=== PATIENT | female | born 1940 | race Caucasian/White ===

== ENCOUNTER 2016-10-23 09:14 | Inpatient (IN) | payer MEDICARE ==
[2016-10-23 10:54] LABS: Hematocrit 25 % (35-47); Hemoglobin 8.1 g/dl (12.0-16.0); Mean Corpuscular HGB Conc 33 g/dl (31-36); Mean Corpuscular Hemoglobin 32 pg (27-31); Mean Corpuscular Volume 97 fL (80-97); Mean Platelet Volume 9 um3 (7.4-10.4); Red Blood Count 2.54 10^6/ul (4.0-5.4); Red Cell Distribution Width 15 % (10.5-15); White Blood Count 9.8 10^3/ul (3.5-10.8)
--- NOTE | 2016-10-23 10:57 | RAD ---
HISTORY: Syncope COMPARISONS: April 29, 2018 VIEWS: 2: Frontal dual-energy and lateral views of the chest. FINDINGS: CARDIOMEDIASTINAL SILHOUETTE: The cardiomediastinal silhouette is normal. LAKEISHA: The lakeisha are normal. PLEURA: The costophrenic angles are sharp. No pleural abnormalities are noted. LUNG PARENCHYMA: There is hyperinflation with flattening of the diaphragm and expansion of the AP diameter of the chest. ABDOMEN: The upper abdomen is clear. There is no subphrenic gas. BONES AND SOFT TISSUES: No bone or soft tissue abnormalities are noted. OTHER: A left-sided pacemaker is noted IMPRESSION: HYPERINFLATION NO ACTIVE CARDIOPULMONARY DISEASE.
[2016-10-23 11:06] LABS: ALT < 3 U/L (7-52); AST 10 U/L (13-39); Albumin 4.2 g/dL (3.2-5.2); Alkaline Phosphatase 52 U/L (34-104); Anion Gap 10 mmol/L (2-11); BUN/Creatinine Ratio 28.6 (8-20); Blood Urea Nitrogen 62 mg/dL (6-24); CO2 Carbon Dioxide 22 mmol/L (22-32); Calcium 9.5 mg/dL (8.6-10.3); Chloride 104 mmol/L (101-111); EGFR African American 28.2 (>60); EGFR Non-African American 21.9 (>60); Globulin 3.1 g/dL (2-4); Glucose 108 mg/dL (70-100); Magnesium 2.4 mg/dL (1.9-2.7); Potassium 4.1 mmol/L (3.5-5.0); Sodium 136 mmol/L (133-145); Total Protein 7.3 g/dL (6.4-8.9)
[2016-10-23 11:08] LABS: Troponin I 0.01 ng/mL (<0.04)
[2016-10-23 11:21] LABS: TSH (Thyroid Stimulating Horm) 0.35 mcIU/mL (0.34-5.60)
[2016-10-23] MEDS ORDERED: NS 0.9% 1000 ML* 1,000 ML IV SCH (11:30)
[2016-10-23 11:41] LABS: Urine Bacteria Absent (Absent); Urine Bilirubin Negative (Negative); Urine Glucose Negative (Negative); Urine Nitrite Negative (Negative)
--- NOTE | 2016-10-23 14:19 | ECHO ---
Patient: HUMBERTO CAMERON [facility] Rec#: [id number] : 1940 Date: 10/23/2016 Age: 76y Height: 149.9 cm / 59.0 in Weight: 55.8 kg / 123.0 lbs Sex: F BSA: 1.5 Admit Date#: 10/23/2016 Type: Inpatient Referring: Dagoberto Longoria MD Reading: Mirta Lee MD Crosscutter Rolled Glass: Jailyn Aburto RN RDCS CC: [facility]ERS[facility] Indication: Syncope BP: 117/86 HR: 60 Rhythm: NSR Findings History: CAD, MS, HTN, A. fib, pacemaker, TIAs, Parkinson's disease, recent syncopal episodes with falls Technical Comments: The study quality is fair. Completed at 1330. Left Ventricle: The left ventricular chamber size is normal. Mild concentric left ventricular hypertrophy is observed. Global left ventricular wall motion and contractility are within normal limits. There is normal left ventricular systolic function. The estimated ejection fraction is 55-60%. Abnormal left ventricular diastolic filling is observed, consistent with impaired relaxation. Left Atrium: The left atrium is moderate to severely dilated. Right Ventricle: The right ventricular cavity size is normal. The right ventricular global systolic function is normal. A pacemaker wire is visualized in the right ventricle. Right Atrium: The right atrial cavity size is normal. A pacemaker wire is visualized in the right atrium. Aortic Valve: The aortic valve is trileaflet. The aortic valve leaflets are mildly thickened. There is no evidence of aortic regurgitation. There is no evidence of aortic stenosis. Mitral Valve: There is mitral annular calcification. The mitral valve leaflets are mildly thickened. There is mild to moderate mitral regurgitation. most views appears mild. There is no evidence of mitral stenosis. Tricuspid Valve: The tricuspid valve leaflets are normal. There is trace to mild tricuspid regurgitation. Unable to estimate the right ventricular systolic pressure. Pulmonic Valve: The pulmonic valve appears normal. There is trace to mild pulmonic regurgitation. There is no pulmonic stenosis. Pericardium: There is no significant pericardial effusion. Aorta: There is no dilatation of the ascending aorta. There is no dilatation of the aortic arch. The aortic root is normal in size. Pulmonary Artery: The main pulmonary artery appears normal. Venous: The inferior vena cava appears normal in size. There is a greater than 50% respiratory change in the inferior vena cava dimension. Conclusions Mild concentric left ventricular hypertrophy is observed. Normal wall motion and contractility, LVEF 55-60%. Mild diastolic dysfunction, impaired relaxation pattern. The right ventricular global systolic function is normal. The left atrium is moderately to severely dilated. The mitral valve leaflets are mildly thickened with mild to moderate MR (closer to mild). There is trace to mild tricuspid regurgitation. Compared with prior echo of February 07, 2012, EF is stable, MR is new, left atrial enlargement is new. Measurements Name Value Normal Range RVIDd (AP) 2D 2.7 cm (0.9 - 2.6) RVDdMajor (2D) 3 cm (2.2 - 4.4) RAd ISD 4CH 4.6 cm (3.4 - 4.9) RA (A4C)W 3.1 cm (2.9 - 4.6) IVSd (2D) 1.2 cm (0.6 - 1) LVPWd (2D) 1.2 cm (0.6 - 1) LVIDd (2D) 4.1 cm (3.6 - 5.4) LVIDs (2D) 2.8 cm - LV FS (2D) 31 % (25 - 45) Aortic Annulus 2.2 cm (1.4 - 2.6) Ao root diameter (2D) 3 cm (2.1 - 3.5) Ascending Ao 3.4 cm (2.1 - 3.4) Aortic arch 2.1 cm (1.8 - 3.4) LA dimension (AP) 2D 3.7 cm (2.3 - 3.8) LAd ISD 4CH 5.4 cm (2.9 - 5.3) LA ISD 4CH W 4.6 cm (2.5 - 4.5) Name Value Normal Range LA ESV SP 4CH (A/L) 84 ml - LA ESV SP 2CH (A/L) 29 ml - LA ESV BP (A/L) 63 ml - LA ESV BP (A/L) index 42 ml/m2 - LA ESV SP 4CH (MOD) 80 ml - LA ESV SP 2CH (MOD) 25 ml - Name Value Normal Range MV E-wave Vmax 1 m/sec - MV deceleration time 188 msec - MV A-wave Vmax 1.3 m/sec - MV E:A ratio 0.77 ratio - LV septal e' Vmax 0.07 m/sec - LV lateral e' Vmax 0.09 m/sec - LV E:e' septal ratio 14.3 ratio - LV E:e' lateral ratio 11.1 ratio - Name Value Normal Range AV Vmax 1.5 m/sec - AV VTI 36.7 cm - AV peak gradient 9.3 mmHg - AV mean gradient 6 mmHg - LVOT Vmax 1.4 m/sec - LVOT VTI 31.1 cm - GEOVANNA Vmax 0.53 m/sec - Name Value Normal Range IVC diameter 1.8 cm - Name Value Normal Range PV Vmax 0.87 m/sec -
[2016-10-23] MEDS: Pantoprazole IV* 40 MG IV SCH ×2 (14:39→21:34)
[2016-10-23] MEDS: Carbidopa/Levodop 25/100 MG TAB(*) PO SCH ×2 (15:37→21:33)
[2016-10-23] MEDS: traMADol TAB* 50 MG PO PRN ×2 (16:21→22:56)
[2016-10-23 16:24] LABS: Comments Flag Yes; Hematocrit 18 % (35-47)
[2016-10-23 16:27] LABS: Hemoglobin 6.1 g/dl (12.0-16.0)
[2016-10-23] MEDS ORDERED: Phytonadione INJ* 1 MG/0.5 ML ML IM ONE (16:55)
[2016-10-23] MEDS ORDERED: Phytonadione INJ (Adult)* 10 MG/ML 1 ML AMP SUBCUT ONE (17:09)
[2016-10-23] MEDS: NS 0.9% 1000 ML* 1,000 ML IV SCH (18:47)
[2016-10-23] MEDS ORDERED: NS 0.9% 500 ML BAG* 500 ML IV ONE (19:00)
[2016-10-23] MEDS ORDERED: Dofetilide CAP* 250 MCG PO SCH (21:00)
[2016-10-23] MEDS: Metoprolol Tartrate TAB* 25 MG PO SCH (21:33)
--- NOTE | 2016-10-23 21:50 | HP ---
HOSPITAL MEDICINE HISTORY AND PHYSICAL: DATE OF ADMISSION: 10/23/16 PRIMARY CARE PHYSICIAN: Dr. Damon. ATTENDING PHYSICIAN: Dr. Ty Longoria *(dictation provided by Dafne Lord NP). CHIEF COMPLAINT: Multiple episodes of falling down. HISTORY OF PRESENT ILLNESS: Ms. Phelan is a 76-year-old female with a past medical history of Parkinson's, atrial fibrillation, and hypertension, who presents today to the hospital with concern for multiple episodes of falling down at home. Ms. Phelan states that she first noticed these spells in early July. She states that there was only one episode and did not repeat itself until last week on Friday or Friday. The typical spells are described as occurring when she moves from a seated position to standing and then suddenly finding herself on the floor. She does not remember how she got to the floor, but then able is to go on without any further concern. She states that on Friday or Friday, she had a couple of episodes and then during the week, she has had increasing episodes. Today, she states she was getting ready to go see Dr. Damon out of concern for these episodes of falling down. She went to go from seated position to standing. Her daughter observed her to take one step forward and then crumple to the ground. The patient was not observed to lose consciousness. She did appear mildly confused, but was able to get herself up into a chair. The patient was hopeful that she still would be able to make the appointment and again tried to walk to the car, but after taking a couple of steps, she again crumpled to the ground. Daughter reports at this point that she did broke a vase during the fall but had no recollection of what happened. Ultimately, it was determined that they should call EMS. On arrival of the EMS, the patient was alert and oriented. She again hoped that she could be able to walk to the stretcher, but on taking a couple of steps, she was noted to crumple to the ground, but was supported by EMS providers, who then transported her to the hospital. Ms. Phelan says there does not seem to have been any prodrome with any of these episodes other than one time when she did feel a little bit dizzy. Again, the daughter did not note her to lose consciousness. There is no loss of bowel or bladder. In addition to these episodes, Ms. Phelan reports that on Friday and Friday, she had a large amount of dark black liquid stool. She states that on Friday, she had explosive watery diarrhea that was very black. She thought that it reminded her of the time in her early 30s when she had a gastric ulcer that bled requiring blood transfusions. She denies using any ibuprofen or aspirin, but does take warfarin routinely for history of atrial fibrillation. Her INR is monitored closely by Dr. Damon and she states that her last one was therapeutic. She has had no nausea, no vomiting, no abdominal pain. In the emergency room, Ms. Phelan was noted to have anemia and a hemoglobin of 8.1. Her last hemoglobin check was on 05/03/16. At that time, it was 10 which was consistent with a previous value going back a couple of years. She also has acute kidney injury with a creatinine of 2.17 and a BUN of 62. The remainder of her workup is negative. PAST MEDICAL HISTORY: 1. History of TIA. The patient does report continued residual symptom of droop to the right mouth. 2. Hypertension. 3. Pacemaker with infection and removal, 2007. Last replaced by Dr. Bull, 2016. 4. History of atrial fibrillation, on Tikosyn. 5. Parkinson's. 6. History of hysterectomy. 7. History of appendectomy. MEDICATIONS: 1. Warfarin 4 mg p.o. daily. 2. Furosemide 20 mg p.o. q.a.m. 3. Lisinopril 10 mg p.o. daily. 4. Metoprolol tartrate 100 mg p.o. b.i.d. 5. Carbidopa/levodopa 25/100 two tabs at 8 o'clock and 12 o'clock and 2100 and 2.5 tablets at 1600 hours. 6. Tikosyn 250 mg p.o. b.i.d. ALLERGIES: To PENICILLIN. FAMILY HISTORY: The patient reports both her mother and father had heart failure and were smokers. She has a sister who of lung cancer. SOCIAL HISTORY: The patient is a never smoker. She denies alcohol nor had a history of drug abuse. She states that her daughter, Lyubov, would be the healthcare proxy and the patient does live alone. REVIEW OF SYSTEMS: A 14-point review of systems was completed with Ms. Phelan and all those not mentioned above are negative. PHYSICAL EXAMINATION GENERAL: Ms. Phelan is lying in the bed. She is in no acute distress. Calm and cooperative to my examination. VITAL SIGNS: Temperature 98.2, heart rate 74, respiratory rate 16, O2 saturation 99% on room air, blood pressure 117/86. LUNGS: Clear to auscultation bilaterally with no accessory muscle use and good aeration. HEART: S1, S2. No murmur, rub, or gallop and regular. ABDOMEN: Soft. There is pinpoint tenderness in the left lower quadrant. There is no rebound. Bowel sounds are positive. EXTREMITIES: No cyanosis or edema. The patient is complaining of pain on multiple sites including bilateral hips, has good range of motion. NEURO: She is alert and oriented x3. She moves all extremities equally. There is no facial asymmetry or focal weakness. Extraocular movements are intact. DIAGNOSTIC STUDIES/LAB DATA: INR 4.03. WBC 9.8, hemoglobin 8.1, hematocrit 25 , platelet count 254. Sodium 136, potassium 4.1, chloride 104, serum bicarbonate 22, BUN 62, creatinine 2.17, glucose 108. Urine shows trace leuk esterase. Chest x-ray shows no acute process. EKG shows sinus rhythm with heart rate of about 60, prior EKG shows paced rhythm , no clear evidence of ischemia. ASSESSMENT AND PLAN: Ms. Phelan is a 76-year-old female with a past medical history of atrial fibrillation, hypertension, and Parkinson's, who presents today to the hospital after multiple episodes of falling at home. Our plan is for observation in the hospital for the followin. Falling: The patient does not clearly present with syncope, as there is no evidence of loss of consciousness as witnessed by the patient's daughter, who is here today. Based on the description thus far, it appears more to be orthostatic as all the witnessed events happened going from seated to standing position. I suspect this is secondary to gastrointestinal bleed with anemia and hypovolemia. It could be secondary to an arrhythmia though the patient does have a pacemaker. Our plan is to check a transthoracic echocardiogram, which has already been done. She also will be monitored on telemetry unit. Once stable from a bleeding standpoint we will check orthostatic vitals and have a physical therapy evaluation. 2. Suspected upper gastrointestinal bleed: The patient is newly anemic today and reports dark tarry stools over the past couple of days. She is on warfarin with a supratherapeutic INR. I suspect that she does have an upper gastrointestinal bleed based on the description and elevated BUN and creatinine. The patient will have Protonix. The patient will have 2 large bore IVs. I will have a repeat hemoglobin checked at 4 p.m. today. I suspect that her number will fall as she has received a liter of IV fluid in the emergency room. If her hemoglobin falls below 8, I will transfuse. Plan to hold warfarin, but do not see the need for reversal at this point unless she requires blood transfusion. I have also contacted Dr. Russell for consultation. 3. Anemia: Again, secondary to upper gastrointestinal bleed. We will manage as per above and follow. 4. Supratherapeutic INR: Plan to recheck in the a.m. Again, no plan for reversal given mild bleeding and only mild elevation of the INR. 5. Acute kidney injury: I suspect this is secondary to anemia, hypovolemia, and concurrent use of furosemide and lisinopril. Plan to hold furosemide and lisinopril. The patient will continue with intravenous fluids and blood products as needed. We will recheck all in the a.m. 6. Atrial fibrillation: Unfortunately, the patient's creatinine clearance is too low today to continue with Tikosyn. So, that will be held until her kidney function returns and again we are holding warfarin. 7. Hypertension: Plan to hold furosemide and lisinopril and provide only a very low dose of metoprolol to avoid any rebound tachycardia. 8. Parkinson's disease: Plan to continue with her home Sinemet. 9. DVT prophylaxis with SCDs only. 10. Code status is full code. This was reviewed with the patient and the daughter at the bedside. 11. Disposition. To telemetry floor. TIME SPENT: Approximately 60 minutes was spent on the admission of this patient , more than half time spent with the patient at the bedside reviewing the events leading up to this hospitalization, performing the physical examination, and reviewing my plan of care. DAFNE LORD NP CC: Dr. Damon * [id number]/[facility] #: [id number] [facility]
--- NOTE | 2016-10-23 23:55 | CONS ---
CONSULTATION REPORT: DATE OF CONSULT: 10/23/16 REASON FOR THE CONSULTATION: Anemia, GI bleeding, recurrent falls. NARRATIVE: This is a 76-year-old woman with a history of atrial fibrillation, on Coumadin; coronary artery disease; TIA; and a history of Parkinson's disease. She states that in the last 1 to 1-1/2 weeks, she has had recurrent episodes of passing out. She states that suddenly she would drop to the floor without warning. She denies any presyncopal symptoms such as nausea or dizziness. She reports having multiple bruises because of that. Starting about 2 days ago, she has noticed black stools as well. On Friday of this week , she had multiple rounds of black stools, which were very runny. Over the next 2 days, this seemed to have subsided. For these reasons, she presented to the emergency room. On arrival, she had a normal blood pressure and heart rate. Initial data include a hemoglobin of 8.1 (prior hemoglobin in April 2016 was 10.3), BUN of 62, creatinine of 2.17, and an INR of 4.03. Interestingly, the patient does have a prior history of bleeding, peptic ulcer disease. In 2010, she had an upper endoscopy, which demonstrated multiple gastric ulcers. The ambulatory medicines include carbidopa, Tikosyn, Lasix, Prinivil, metoprolol, and warfarin. She denies any use of aspirin or NSAIDs, but does state that lately she has been using Tylenol. SURGICAL HISTORY: Includes a hysterectomy presumably for early stage ovarian cancer when she was 38 years old. We are not in possession of any of those records. History of appendectomy. The patient never had a colonoscopy. REVIEW OF SYSTEMS: She does describe some mild upper abdominal pain discomfort and reports a sense of anorexia in the last couple of weeks. She also states that she lost perhaps 40 pounds in the last year despite a relatively good appetite. She denies any bright red blood per rectum, lower abdominal pain, or dysphagia. PHYSICAL EXAM: She is an elderly woman, somewhat pale, but in no acute distress. Temperature is 98.2, blood pressure is 116/56, heart rate is 62 and irregular. Lungs are clear. Cardiac exam reveals an irregular rhythm without an appreciable murmur. Abdomen is soft without any octavio tenderness. Bowel sounds are normoactive and there is no organomegaly. DIAGNOSTIC STUDIES/LAB DATA: Additional data include Hemoccult of the stool, which was positive. Normal liver panel. MCV of 97, platelet count of 254,000. IMPRESSION: A 76-year-old woman with a history of atrial fibrillation, transient ischemic attack, Parkinson's disease, and a history of peptic ulcer disease presenting with episodes of frequent falls from a sense of passing out associated with black stools, anemia, and guaiac-positive stools. Certainly, there is evidence of bleeding and given the black stools and prior history of peptic ulcer disease, it certainly could be recurrent peptic ulcer disease. That was discussed with the patient. I am not quite convinced that her episodes of syncope are completely explained by her GI bleed. She tells me that she had a syncopal episode back in July 2016 which seemed to precede the onset of the GI bleeding. I do believe other causes such as cardiac causes or recurrent transient ischemic attack need to be evaluated as well. As far as the GI bleed is concerned, we will plan on doing an upper endoscopy tomorrow. She is empirically on Protonix. I did discuss with the patient colonoscopy; however, the patient is adamant that she does not want a colonoscopy and has never had one. That might be reevaluated with the patient depending on the results of the upper endoscopy. CC: Dr. Damon * [id number]/[facility] #: [id number]
[2016-10-24 01:59] LABS: Hematocrit 27 % (35-47)
[2016-10-24] MEDS: NS 0.9% 1000 ML* 1,000 ML IV SCH (04:23)
[2016-10-24 06:27] LABS: Hematocrit 26 % (35-47); Hemoglobin 8.8 g/dl (12.0-16.0); Mean Corpuscular HGB Conc 34 g/dl (31-36); Mean Corpuscular Hemoglobin 31 pg (27-31); Mean Corpuscular Volume 92 fL (80-97); Mean Platelet Volume 8 um3 (7.4-10.4); Red Blood Count 2.86 10^6/ul (4.0-5.4); Red Cell Distribution Width 18 % (10.5-15); White Blood Count 6.1 10^3/ul (3.5-10.8)
[2016-10-24 06:43] LABS: BUN/Creatinine Ratio 35.8 (8-20); Calcium 8.4 mg/dL (8.6-10.3); EGFR African American 55.9 (>60); EGFR Non-African American 43.4 (>60); Potassium 3.6 mmol/L (3.5-5.0)
[2016-10-24] MEDS: Carbidopa/Levodop 25/100 MG TAB(*) PO SCH ×4 (08:51→20:05)
[2016-10-24] MEDS: Metoprolol Tartrate TAB* 25 MG PO SCH ×2 (08:51→20:00)
[2016-10-24] MEDS: Pantoprazole IV* 40 MG IV SCH ×2 (09:00→20:05)
--- NOTE | 2016-10-24 10:58 | RAD ---
Indication: Shortness of breath, chest pain. Single frontal view of the chest performed at 1025 hours was reviewed. Comparison is made with previous exam dated October 23, 2016. No mediastinal shift is noted. Heart is of normal size and configuration. Lung mckenzie appear clear. Pacemaker leads are in place. IMPRESSION: NO ACTIVE CARDIOPULMONARY DISEASE IS NOTED.
[2016-10-24 11:11] LABS: Troponin I 0.02 ng/mL (<0.04)
[2016-10-24] MEDS ORDERED: HYDROmorphone* 1 MG/ML 1 ML SYR IV SLOW PU ONE (11:23)
--- NOTE | 2016-10-24 12:51 | PN ---
Subjective Date of Service: 10/24/16 Interval History: . Pt reports no further BMs or syncopal episodes. Denies dizziness. No CP or SOB. Denies weakness, numbness or tingling. Reports epigastric pain that was wore this morning now "feels much better" but is threading machine tender to palpation. Pt reports syncopal episode around [place] and was worked up by PCP. Last time her pacer was interrogated was after her pacer was replaced in the fall. She cannot remember the last time she had an echo but thinks it was within the last year or so. Objective Active Medications: Acetaminophen (Tylenol Tab*) 650 mg PO Q6H PRN PRN Reason: PAIN Carbidopa/Levodopa (Sinemet 25/100 Tab(*)) 2 tab PO 0800,1200 [facility] Last Admin: 10/24/16 11:47 Dose: Not Given Carbidopa/Levodopa (Sinemet 25/100 Tab(*)) 2 tab PO 2100 [facility] Last Admin: 10/23/16 21:33 Dose: 2 tab Carbidopa/Levodopa (Sinemet 25/100 Tab(*)) 2.5 tab PO 1600 [facility] Last Admin: 10/23/16 15:37 Dose: 2.5 tab Dofetilide (Tikosyn Cap*) 125 mcg PO BID [facility] Metoprolol Tartrate (Lopressor Tab*) 12.5 mg PO BID [facility] Last Admin: 10/24/16 08:51 Dose: Not Given Pantoprazole Sodium (Protonix Iv*) 40 mg IV BID [facility] Last Admin: 10/24/16 09:00 Dose: 40 mg Tramadol HCl (Ultram*) 50 mg PO Q6H PRN PRN Reason: PAIN Last Admin: 10/23/16 22:56 Dose: 50 mg Vital Signs 10/23/16 10/23/16 10/23/16 13:00 14:34 16:01 Temperature 98.2 F Pulse Rate 52 62 Respiratory 14 18 Rate Blood Pressure 152/77 106/81 116/56 (mmHg) O2 Sat by Pulse 100 Oximetry 10/23/16 10/23/16 10/23/16 16:21 17:52 18:21 Temperature 97.9 F Pulse Rate 61 Respiratory 16 17 Rate Blood Pressure 88/45 (mmHg) O2 Sat by Pulse 96 Oximetry 10/23/16 10/23/16 10/23/16 20:35 22:07 22:50 Temperature 97.6 F 97.6 F 97.3 F Pulse Rate 59 59 63 Respiratory 16 16 16 Rate Blood Pressure 146/69 134/66 109/57 (mmHg) O2 Sat by Pulse 95 98 96 Oximetry 10/23/16 10/24/16 10/24/16 22:56 00:44 00:56 Temperature 97.6 F Pulse Rate 64 Respiratory 16 16 16 Rate Blood Pressure 146/72 (mmHg) O2 Sat by Pulse 95 Oximetry 10/24/16 10/24/16 10/24/16 04:44 07:27 08:13 Temperature 98.5 F 97.7 F Pulse Rate 61 60 62 Respiratory 16 16 Rate Blood Pressure 137/67 155/78 142/69 (mmHg) O2 Sat by Pulse 98 95 97 Oximetry 10/24/16 10/24/16 10/24/16 08:34 08:36 10:22 Temperature 98.2 F Pulse Rate 62 60 62 Respiratory 18 Rate Blood Pressure 142/69 155/78 183/78 (mmHg) O2 Sat by Pulse 96 Oximetry 10/24/16 10/24/16 11:28 11:45 Temperature Pulse Rate 62 Respiratory 22 16 Rate Blood Pressure 166/73 (mmHg) O2 Sat by Pulse 96 Oximetry Oxygen Devices in Use Now: None Appearance: eldelry female laying in bed in NAD, resting A+O x3 Eyes: No Scleral Icterus, PERRLA Ears/Nose/Mouth/Throat: NL Teeth, Lips, Gums, Mucous Membranes Moist Neck: NL Appearance and Movements; NL JVP Respiratory: Symmetrical Chest Expansion and Respiratory Effort, Clear to Auscultation Cardiovascular: NL Sounds; No Murmurs; No JVD, RRR, No Edema Abdominal: - - epigastric tenderness, NL BS, soft Lymphatic: No Cervical Adenopathy Extremities: No Edema, No Clubbing, Cyanosis Skin: No Rash or Ulcers, No Nodules or Sclerosis Neurological: Alert and Oriented x 3, NL Sensation, NL Gait, NL Muscle Strength and Tone Lines/Tubes/Other Access: Clean, Dry and Intact Peripheral IV Nutrition: - - NPO Result Diagrams: 10/24/16 06:20 10/24/16 06:20 Microbiology and Other Data: Microbiology 10/23/16 21:05 Transfusion Reaction Culture - Preliminary Blood Bag Culture Under Incubation Transfusion Reaction Gram Stain - Final 10/24/16 01:56 Transfusion Reaction Gram Stain - Final Blood Bag 10/23/16 13:45 Stool Occult Blood (NANCY) - Final Stool Assess/Plan/Problems-Billing Assessment: Ms. Phelan is a 76 yo female with hx of afib on coumadin, CAD, TIA and hx of Parkinsons, hx of peptic ulcer disease who has had recurrent syncopal episodes and black stool. - Patient Problems (1) Syncope Comment: - suspect orthostatsis. No further episodes - no arrythmias noted on tele. Will have pacer interrogated. Continue tele monitoring - TTE showing "normal wall motion and contractility LVEF 55-60%. Mild diastolic dysfunction, impaired relaxation. Right ventricular global systolic function is melissa;. Left atrium is mod-severely dilated, mild-mod MR, trace-mild tricuspid regurg. Compared to TTE 01/2012 EF is stable, MR is new, left atrial enlargement is new". - Obtain records from cardiology office - last note, recent echo (2) GI (gastrointestinal bleed) Comment: - suspect upper GI bleed, positive stool occult blood. Hgb dropped to 6.1 received 2 units PRBCs. INR noted to be supratherapuetic on admission 4.03, was given Vitamin K. Today 3.05. Hgb 8.8 and stable. No further black stools. VSS stable. - plan for EGD today; pt refused recommended colonoscopy by GI; she has never had one. - continue protonix BID - continue trending HH (3) Acute kidney failure Comment: - improving with IVFs - hold lisinopril. Renally adjust medications. (4) A-fib Comment: - on coumadin, tikosyn metoprolol - D/C coumadin. - Restart Tikosyn renally adjusted - Continue metoprolol - check INR in am (5) Parkinsons Comment: - continue Sinemet (6) Hypertension Comment: - slightly hypertensive today, continue home metoprolol (7) DVT prophylaxis Comment: SCDs only in the setting of GI bleed. (8) Full code status Status and Disposition: switch to inpatient. Home when medically stable
[2016-10-24 13:34] LABS: Hematocrit 28 % (35-47); Hemoglobin 9.2 g/dl (12.0-16.0)
[2016-10-24] MEDS: Dofetilide CAP* 125 MCG PO SCH ×3 (13:57→20:11)
[2016-10-24 14:50] LABS: Magnesium 2.1 mg/dL (1.9-2.7)
[2016-10-24] MEDS ORDERED: Midazolam* 1 MG/ML 10 ML VIAL (10 MG) ONE (15:49)
[2016-10-24] MEDS ORDERED: Sucralfate TAB* 1 GM PO ONE (17:25)
[2016-10-24] MEDS ORDERED: Metoprolol Tartrate TAB* 25 MG PO ONE ×2 (17:25)
[2016-10-24 19:44] LABS: Hematocrit 28 % (35-47); Hemoglobin 9.4 g/dl (12.0-16.0)
[2016-10-24] MEDS: Sucralfate TAB* 1 GM PO SCH (20:05)
[2016-10-24] MEDS ORDERED: Dofetilide CAP* 250 MCG PO SCH (21:00)
[2016-10-24] MEDS: Acetaminophen TAB* 325 MG PO PRN (23:22)
[2016-10-25 05:49] LABS: Hematocrit 27 % (35-47); Hemoglobin 9.1 g/dl (12.0-16.0); Mean Corpuscular HGB Conc 34 g/dl (31-36); Mean Corpuscular Hemoglobin 31 pg (27-31); Mean Corpuscular Volume 93 fL (80-97); Mean Platelet Volume 9 um3 (7.4-10.4); Red Blood Count 2.93 10^6/ul (4.0-5.4); Red Cell Distribution Width 18 % (10.5-15); White Blood Count 6.9 10^3/ul (3.5-10.8)
[2016-10-25 06:21] LABS: BUN/Creatinine Ratio 25.5 (8-20); Calcium 8.6 mg/dL (8.6-10.3); EGFR African American 70.6 (>60); EGFR Non-African American 54.9 (>60); Potassium 3.5 mmol/L (3.5-5.0)
--- NOTE | 2016-10-25 07:17 | PN ---
Subjective Date of Service: 10/25/16 Interval History: . pt reports she feels better. she has some continued intermittent epigastric discomfort. She denies any further syncope or presyncope or dizziness. Denies CP , palpitations or sob. No further dark/black stools. Objective Active Medications: Acetaminophen (Tylenol Tab*) 650 mg PO Q6H PRN PRN Reason: PAIN Last Admin: 10/24/16 23:22 Dose: 650 mg Carbidopa/Levodopa (Sinemet 25/100 Tab(*)) 2 tab PO 0800,1200 [facility] Last Admin: 10/24/16 11:47 Dose: Not Given Carbidopa/Levodopa (Sinemet 25/100 Tab(*)) 2 tab PO 2100 [facility] Last Admin: 10/24/16 20:05 Dose: 2 tab Carbidopa/Levodopa (Sinemet 25/100 Tab(*)) 2.5 tab PO 1600 [facility] Last Admin: 10/24/16 17:52 Dose: 2.5 tab Dofetilide (Tikosyn Cap*) 125 mcg PO BID [facility] Last Admin: 10/24/16 20:11 Dose: 125 mcg Metoprolol Tartrate (Lopressor Tab*) 25 mg PO BID [facility] Last Admin: 10/24/16 20:00 Dose: Not Given Pantoprazole Sodium (Protonix Iv*) 40 mg IV BID [facility] Last Admin: 10/24/16 20:05 Dose: 40 mg Sucralfate (Carafate*) 1 gm PO QID [facility] Last Admin: 10/24/16 20:05 Dose: 1 gm Tramadol HCl (Ultram*) 50 mg PO Q6H PRN PRN Reason: PAIN Last Admin: 10/23/16 22:56 Dose: 50 mg Vital Signs 10/24/16 10/24/16 10/24/16 14:07 15:39 15:42 Temperature 98.7 F Pulse Rate 62 Respiratory 18 18 18 Rate Blood Pressure 160/70 (mmHg) O2 Sat by Pulse 98 Oximetry 10/24/16 10/24/16 10/24/16 17:30 18:14 19:42 Temperature 97.6 F 98.2 F 98.2 F Pulse Rate 59 82 60 Respiratory 14 17 18 Rate Blood Pressure 187/73 125/68 93/72 (mmHg) O2 Sat by Pulse 100 100 99 Oximetry 03/05/0410/24/16 10/24/16 19:53 20:00 21:20 Temperature 97.5 F Pulse Rate 59 59 Respiratory 20 18 Rate Blood Pressure 91/57 110/65 (mmHg) O2 Sat by Pulse 96 95 Oximetry 10/25/16 10/25/16 00:28 04:19 Temperature 97.8 F 97.9 F Pulse Rate 64 67 Respiratory 16 16 Rate Blood Pressure 117/61 104/72 (mmHg) O2 Sat by Pulse 95 100 Oximetry Oxygen Devices in Use Now: None Appearance: 76 yo female sitting up on the side of her bed in NAD. A+ox3 Eyes: No Scleral Icterus, PERRLA Ears/Nose/Mouth/Throat: NL Teeth, Lips, Gums, Mucous Membranes Moist Neck: NL Appearance and Movements; NL JVP Respiratory: Symmetrical Chest Expansion and Respiratory Effort, Clear to Auscultation Cardiovascular: NL Sounds; No Murmurs; No JVD, RRR, No Edema Abdominal: - - mild tenderness to epigastric area; no guarding. otherwise abdomen in nontender, soft, nondistended Extremities: No Edema, No Clubbing, Cyanosis Skin: No Rash or Ulcers, No Nodules or Sclerosis Neurological: Alert and Oriented x 3, NL Sensation, NL Gait, NL Muscle Strength and Tone Lines/Tubes/Other Access: Clean, Dry and Intact Peripheral IV Nutrition: Taking PO's Result Diagrams: 10/25/16 05:17 10/25/16 05:17 Microbiology and Other Data: Microbiology 10/23/16 21:05 Transfusion Reaction Culture - Preliminary Blood Bag Culture Under Incubation Transfusion Reaction Gram Stain - Final 10/24/16 01:56 Transfusion Reaction Gram Stain - Final Blood Bag 10/23/16 13:45 Stool Occult Blood (NANCY) - Final Stool Assess/Plan/Problems-Billing Assessment: Ms. Phelan is a 76 yo female with hx of afib on coumadin, CAD, TIA and hx of Parkinsons, hx of peptic ulcer disease who has had recurrent syncopal episodes and black stool. - Patient Problems (1) Syncope Comment: - suspect orthostatsis. No further episodes - no arrythmias noted on tele. Waiting for pacer interrogation. Continue tele monitoring - TTE showing "normal wall motion and contractility LVEF 55-60%. Mild diastolic dysfunction, impaired relaxation. Right ventricular global systolic function is melissa;. Left atrium is mod-severely dilated, mild-mod MR, trace-mild tricuspid regurg. Compared to TTE 01/2012 EF is stable, MR is new, left atrial enlargement is new". - Obtain records from cardiology office and review - PT (2) GI (gastrointestinal bleed) Comment: - suspect upper GI bleed, positive stool occult blood. Hgb dropped to 6.1 received 2 units PRBCs. INR noted to be supratherapuetic on admission 4.03, was given Vitamin K. Today 3.05. Hgb 9 and stable. No further black stools. VSS stable. - EGD yesterday - showing prepyloric gastric ulcer - pt encourage to f/u with colonoscopy as outpt as she has no hx of one; she is refusing at this time - continue PPI (3) Acute kidney failure Comment: - improving with IVFs - hold lisinopril. Renally adjust medications. (4) Diastolic heart failure Comment: - stable. - Restart Lasix (5) A-fib Comment: - on coumadin, tikosyn metoprolol - Can restart coumadin per GI on 10/26 if stable - Restart Tikosyn renally adjusted - give potassium supplement K+ 3.5 and trending down - Continue metoprolol - check INR in am (6) Parkinsons Comment: - continue Sinemet (7) Hypertension Comment: - continue home metoprolol and lisinopril (8) DVT prophylaxis Comment: SCDs only in the setting of GI bleed. (9) Full code status Status and Disposition: inpatient. Home when medically stable
[2016-10-25] MEDS: Carbidopa/Levodop 25/100 MG TAB(*) PO SCH ×4 (08:23→21:18)
[2016-10-25] MEDS: Sucralfate TAB* 1 GM PO SCH ×4 (08:23→21:19)
[2016-10-25] MEDS: Dofetilide CAP* 125 MCG PO SCH ×2 (08:23→21:19)
[2016-10-25] MEDS: Metoprolol Tartrate TAB* 25 MG PO SCH ×2 (08:23→21:19)
[2016-10-25] MEDS: Pantoprazole IV* 40 MG IV SCH (08:24)
--- NOTE | 2016-10-25 09:43 | PRO ---
DATE OF PROCEDURE: 10/24/16 - ROOM #435 PROCEDURE PERFORMED: EGD. INDICATION: Anemia. REFERRING PHYSICIAN: Dr. Longoria. MEDICATIONS GIVEN: No Demerol was given. 3 mg IV Versed. PROCEDURE: After the EGD procedure, including the risks, benefits, and alternatives not limited to perforation, surgery and/or were explained to the Ms. Phelan, written consent was then obtained. IV medication was given and a bite- block was placed between the teeth. An Olympus pediatric gastroscope was then inserted into the patient's mouth, advanced down the esophagus, into the stomach, into the distal duodenum. In the esophagus at the GE junction, Z-line was intact. No erosive esophagitis, stricture or ring was seen. The scope was advanced through the GE junction, into the body of the stomach. Retroflexed view was unremarkable. Forward view did reveal a very small prepyloric ulcer; it was clean based. No oozing or bleeding was seen. A biopsy was obtained. The scope was advanced through a widely patent pylorus, into the duodenum bulb, and into the distal duodenum, both of which were unremarkable. The scope was then withdrawn from the patient. She tolerated the procedure well and was returned to the recovery room in stable condition. IMPRESSION: 1. Complete upper endoscopy into the distal duodenum with biopsies. 2. Prepyloric gastric ulcer, status post biopsy. 3. She should hold her Coumadin until Friday. I would recommend an oral PPI , and I will followup on the biopsy. CC: Douglas Damon MD* [id number]/CPS #: [id number] MTDD
[2016-10-25] MEDS ORDERED: Potassium Chlor TAB* 20 MEQ TAB.ER PO ONE (12:59)
[2016-10-25] MEDS: traMADol TAB* 50 MG PO PRN ×2 (14:54→23:51)
[2016-10-25] MEDS: Omeprazole CAP* 20 MG PO SCH (17:12)
--- NOTE | 2016-10-25 20:27 | ED ---
Alannah Hernandes Salem, scribed for Aniceto Espinosa MD on 10/23/16 at 1035 . Syncope/Near Syncope - HPI Summary HPI Summary: Patient is a 76 y/o female who presents to the ED with 2 syncope episodes since this morning. She denies dizziness and reports numerous episodes of syncope for the last 6 months. Pt states 3 days ago she had 10 syncope episodes in one day. Caregiver reports LOC upon syncope. Three days ago she also had black, watery diarrhea. - History Of Current Complaint Chief Complaint: EDSyncope Time Seen by Provider: 10/23/16 09:32 Hx Obtained From: Patient, Family/Locksmith Onset/Duration: Sudden Onset, Lasting Weeks - 6 months. Context: Loss Of Consciousness Aggravating Factor(s): Nothing Alleviating Factor(s): Nothing Associated Signs And Symptoms: Negative - Allergies/Home Medications Allergies/Adverse Reactions: Allergies Allergy/AdvReac Type Severity Reaction Status Date / Time Penicillins Allergy Hives Verified 10/23/16 09:24 crystal light Allergy Airway Uncoded 10/23/16 09:24 Obstruction NO MRIs - PACEMAKER Allergy NO MRIs Uncoded 10/23/16 09:24 PACEMAKER Home Medications: Home Medications Carbidopa/Levodop 25/100 MG(*) [Sinemet 25/100 TAB(*)] 2 tab PO 0800,1200 [History Confirmed 10/23/16] Carbidopa/Levodop 25/100 MG(*) [Sinemet 25/100 TAB(*)] 2 tab PO 2100 10/23/16 [ History Confirmed 10/23/16] Carbidopa/Levodop 25/100 MG(*) [Sinemet 25/100 TAB(*)] 2.5 tab PO 1600 10/23/16 [History Confirmed 10/23/16] Dofetilide CAP* [Tikosyn CAP*] 250 mcg PO BID 10/23/16 [History Confirmed ] Lisinopril TAB* [Prinivil TAB*] 10 mg PO DAILY 10/23/16 [History Confirmed 10/23] Warfarin Sodium [Jantoven] 4 mg PO DAILY 10/23/16 [History Confirmed 10/23/16] PMH/Surg Hx/FS Hx/Imm Hx Endocrine/Hematology History: Denies: Hx Diabetes Cardiovascular History: Reports: Hx Hypertension, Hx Pacemaker/ICD - PLACED IN 2006,- INFECTED- AND IN 2008- PACEMAKER MOVED TO THE RIGHT CHEST Respiratory History: Denies: Hx Asthma, Hx Chronic Obstructive Pulmonary Disease (COPD) GI History: Reports: Hx Gastroesophageal Reflux Disease - HISTORY OF, Hx Ulcer Musculoskeletal History: Reports: Hx Arthritis - HISTORY OF, Hx Rheumatoid Arthritis Denies: Hx Osteoporosis Sensory History: Reports: Hx Contacts or Glasses - GLASSES Denies: Hx Hearing Aid Opthamlomology History: Reports: Hx Contacts or Glasses - GLASSES Neurological History: Reports: Hx Migraine - HISTORY OF- NOW LESS FREQUENT, Other Neuro Impairments/Disorders - HISTORY OF [place] Denies: Hx Headaches - Cancer History Cancer Type, 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; UPPER LIP - Surgical History Surgery Procedure, Year, and Place: skin, hysterectomy- one ovary; appe; pacemaker; heart scraped after infection Hx Anesthesia Reactions: No - Immunization History Date of Tetanus Vaccine: UTD Date of Influenza Vaccine: 2015 Infectious Disease History: Yes Infectious Disease History: Denies: Hx Clostridium Difficile, Hx Hepatitis, Hx Human Immunodeficiency Virus (HIV), Hx of Known/Suspected MRSA, Hx Shingles, Hx Tuberculosis, Hx Known/ Suspected VRE, Hx Known/Suspected VRSA, History Other Infectious Disease, Traveled Outside the [place] in Last 30 Days - Family History Known Family History: Positive: Unknown, Hypertension Negative: Cardiac Disease - Social History Alcohol Use: Rare Hx Substance Use: No Substance Use Type: Reports: None Hx Tobacco Use: No Smoking Status (MU): Never Smoked Tobacco Review of Systems Negative: Fever Positive: other - black, watery diarrhea Neurological: Other - Not dizzy. Positive: Syncope All Other Systems Reviewed And Are Negative: Yes Physical Exam Triage Information Reviewed: Yes Vital Signs On Initial Exam: Initial Vitals Temp Pulse Resp BP Pulse Ox 98.7 F 64 14 97/67 96 10/23/16 09:22 10/23/16 09:22 10/23/16 09:22 10/23/16 09:22 10/23/16 09:22 Vital Signs Reviewed: Yes Appearance: Positive: Well-Appearing, No Pain Distress Skin: Positive: Warm, Skin Color Reflects Adequate Perfusion, Dry Head/Face: Positive: Normal Head/Face Inspection Eyes: Positive: Normal Neck: Positive: Supple, Nontender Respiratory/Lung Sounds: Positive: Clear to Auscultation, Breath Sounds Present Cardiovascular: Positive: RRR Abdomen Description: Positive: Nontender, Soft Bowel Sounds: Positive: Present Musculoskeletal: Positive: Normal Neurological: Positive: Normal Psychiatric: Positive: Normal, Affect/Mood Appropriate - [place] Coma Scale Coma Scale Total: 15 Diagnostics - Vital Signs Vital Signs Temp Pulse Resp BP Pulse Ox 10/23/16 09:22 98.7 F 64 14 97/67 96 - Laboratory Lab Results: Lab Results 10/23/16 10/23/16 10/23/16 Range/Units 10:27 10:27 10:27 WBC 9.8 (3.5-10.8) 10^3/ul RBC 2.54 L (4.0-5.4) 10^6/ul Hgb 8.1 L (12.0-16.0) g/dl Hct 25 L (35-47) % MCV 97 (80-97) fL MCH 32 H (27-31) pg MCHC 33 (31-36) g/dl RDW 15 (10.5-15) % Plt Count 254 (150-450) 10^3/ul MPV 9 (7.4-10.4) um3 Neut % (Auto) 86.0 H (38-83) % Lymph % (Auto) 7.5 L (25-47) % [place] % (Auto) 5.7 (1-9) % Eos % (Auto) 0.1 (0-6) % Baso % (Auto) 0.7 (0-2) % Absolute Neuts (auto) 8.4 H (1.5-7.7) 10^3/ul Absolute Lymphs (auto) 0.7 L (1.0-4.8) 10^3/ul Absolute Monos (auto) 0.6 (0-0.8) 10^3/ul Absolute Eos (auto) 0 (0-0.6) 10^3/ul Absolute Basos (auto) 0.1 (0-0.2) 10^3/ul Absolute Nucleated RBC 0 10^3/ul Nucleated RBC % 0 INR (Anticoag Therapy) 4.03 H (0.89-1.11) Sodium 136 (133-145) mmol/L Potassium 4.1 (3.5-5.0) mmol/L Chloride 104 (101-111) mmol/L Carbon Dioxide 22 (22-32) mmol/L Anion Gap 10 (2-11) mmol/L BUN 62 H (6-24) mg/dL Creatinine 2.17 H (0.51-0.95) mg/dL Est GFR ( Amer) 28.2 (>60) Est GFR (Non-Af Amer) 21.9 (>60) BUN/Creatinine Ratio 28.6 H (8-20) Glucose 108 H (70-100) mg/dL Lactic Acid (0.5-2.0) mmol/L Calcium 9.5 (8.6-10.3) mg/dL Magnesium 2.4 (1.9-2.7) mg/dL Total Bilirubin 0.60 (0.2-1.0) mg/dL AST 10 L (13-39) U/L ALT < 3 L (7-52) U/L Alkaline Phosphatase 52 (34-104) U/L Troponin I 0.01 (<0.04) ng/mL Total Protein 7.3 (6.4-8.9) g/dL Albumin 4.2 (3.2-5.2) g/dL Globulin 3.1 (2-4) g/dL Albumin/Globulin Ratio 1.4 (1-3) TSH 0.35 (0.34-5.60) mcIU/mL Urine Color Urine Appearance Urine pH (5-9) Ur Specific [place] (1.010-1.030) Urine Protein (Negative) Urine Ketones (Negative) Urine Blood (Negative) Urine Nitrate (Negative) Urine Bilirubin (Negative) Urine Urobilinogen (Negative) Ur Leukocyte Esterase (Negative) Urine WBC (Auto) (Absent) Urine RBC (Auto) (Absent) Ur Squamous Epith Cells (Absent) Urine Bacteria (Absent) Hyaline Casts (Absent) Urine Glucose (Negative) Blood Type Antibody Screen Crossmatch Transfusion React Rpt Donor Unit # Post-Trans Blood Type Post-Trans HAMLET Reaction Interpretation 10/23/16 10/23/16 10/23/16 Range/Units 10:27 11:05 16:07 WBC (3.5-10.8) 10^3/ul RBC (4.0-5.4) 10^6/ul Hgb 6.1 L* (12.0-16.0) g/dl Hct 18 L (35-47) % MCV (80-97) fL MCH (27-31) pg MCHC (31-36) g/dl RDW (10.5-15) % Plt Count (150-450) 10^3/ul MPV (7.4-10.4) um3 Neut % (Auto) (38-83) % Lymph % (Auto) (25-47) % [place] % (Auto) (1-9) % Eos % (Auto) (0-6) % Baso % (Auto) (0-2) % Absolute Neuts (auto) (1.5-7.7) 10^3/ul Absolute Lymphs (auto) (1.0-4.8) 10^3/ul Absolute Monos (auto) (0-0.8) 10^3/ul Absolute Eos (auto) (0-0.6) 10^3/ul Absolute Basos (auto) (0-0.2) 10^3/ul Absolute Nucleated RBC 10^3/ul Nucleated RBC % INR (Anticoag Therapy) (0.89-1.11) Sodium (133-145) mmol/L Potassium (3.5-5.0) mmol/L Chloride (101-111) mmol/L Carbon Dioxide (22-32) mmol/L Anion Gap (2-11) mmol/L BUN (6-24) mg/dL Creatinine (0.51-0.95) mg/dL Est GFR ( Amer) (>60) Est GFR (Non-Af Amer) (>60) BUN/Creatinine Ratio (8-20) Glucose (70-100) mg/dL Lactic Acid 0.7 (0.5-2.0) mmol/L Calcium (8.6-10.3) mg/dL Magnesium (1.9-2.7) mg/dL Total Bilirubin (0.2-1.0) mg/dL AST (13-39) U/L ALT (7-52) U/L Alkaline Phosphatase (34-104) U/L Troponin I (<0.04) ng/mL Total Protein (6.4-8.9) g/dL Albumin (3.2-5.2) g/dL Globulin (2-4) g/dL Albumin/Globulin Ratio (1-3) TSH (0.34-5.60) mcIU/mL Urine Color Yellow Urine Appearance Clear Urine pH 5.0 (5-9) Ur Specific [place] 1.011 (1.010-1.030) Urine Protein Negative (Negative) Urine Ketones Trace H (Negative) Urine Blood Negative (Negative) Urine Nitrate Negative (Negative) Urine Bilirubin Negative (Negative) Urine Urobilinogen Negative (Negative) Ur Leukocyte Esterase Trace H (Negative) Urine WBC (Auto) Trace(0-5/hpf) (Absent) Urine RBC (Auto) Absent (Absent) Ur Squamous Epith Cells Present H (Absent) Urine Bacteria Absent (Absent) Hyaline Casts Present H (Absent) Urine Glucose Negative (Negative) Blood Type Antibody Screen Crossmatch Transfusion React Rpt Donor Unit # Post-Trans Blood Type Post-Trans HAMLET Reaction Interpretation 10/23/16 10/23/16 10/24/16 Range/Units 16:49 20:50 01:41 WBC (3.5-10.8) 10^3/ul RBC (4.0-5.4) 10^6/ul Hgb 9.0 L (12.0-16.0) g/dl Hct 27 L (35-47) % MCV (80-97) fL MCH (27-31) pg MCHC (31-36) g/dl RDW (10.5-15) % Plt Count (150-450) 10^3/ul MPV (7.4-10.4) um3 Neut % (Auto) (38-83) % Lymph % (Auto) (25-47) % [place] % (Auto) (1-9) % Eos % (Auto) (0-6) % Baso % (Auto) (0-2) % Absolute Neuts (auto) (1.5-7.7) 10^3/ul Absolute Lymphs (auto) (1.0-4.8) 10^3/ul Absolute Monos (auto) (0-0.8) 10^3/ul Absolute Eos (auto) (0-0.6) 10^3/ul Absolute Basos (auto) (0-0.2) 10^3/ul Absolute Nucleated RBC 10^3/ul Nucleated RBC % INR (Anticoag Therapy) (0.89-1.11) Sodium (133-145) mmol/L Potassium (3.5-5.0) mmol/L Chloride (101-111) mmol/L Carbon Dioxide (22-32) mmol/L Anion Gap (2-11) mmol/L BUN (6-24) mg/dL Creatinine (0.51-0.95) mg/dL Est GFR ( Amer) (>60) Est GFR (Non-Af Amer) (>60) BUN/Creatinine Ratio (8-20) Glucose (70-100) mg/dL Lactic Acid (0.5-2.0) mmol/L Calcium (8.6-10.3) mg/dL Magnesium (1.9-2.7) mg/dL Total Bilirubin (0.2-1.0) mg/dL AST (13-39) U/L ALT (7-52) U/L Alkaline Phosphatase (34-104) U/L Troponin I (<0.04) ng/mL Total Protein (6.4-8.9) g/dL Albumin (3.2-5.2) g/dL Globulin (2-4) g/dL Albumin/Globulin Ratio (1-3) TSH (0.34-5.60) mcIU/mL Urine Color Urine Appearance Urine pH (5-9) Ur Specific [place] (1.010-1.030) Urine Protein (Negative) Urine Ketones (Negative) Urine Blood (Negative) Urine Nitrate (Negative) Urine Bilirubin (Negative) Urine Urobilinogen (Negative) Ur Leukocyte Esterase (Negative) Urine WBC (Auto) (Absent) Urine RBC (Auto) (Absent) Ur Squamous Epith Cells (Absent) Urine Bacteria (Absent) Hyaline Casts (Absent) Urine Glucose (Negative) Blood Type O Positive Antibody Screen Negative Crossmatch See Detail Transfusion React Rpt Donor Unit # [id number] Post-Trans Blood Type O Positive Post-Trans HAMLET Negative Reaction Interpretation 10/24/16 10/24/16 10/24/16 Range/Units 01:41 06:20 06:20 WBC 6.1 (3.5-10.8) 10^3/ul RBC 2.86 L (4.0-5.4) 10^6/ul Hgb 8.8 L (12.0-16.0) g/dl Hct 26 L (35-47) % MCV 92 (80-97) fL MCH 31 (27-31) pg MCHC 34 (31-36) g/dl RDW 18 H (10.5-15) % Plt Count 180 (150-450) 10^3/ul MPV 8 (7.4-10.4) um3 Neut % (Auto) 74.4 (38-83) % Lymph % (Auto) 14.1 L (25-47) % [place] % (Auto) 9.8 H (1-9) % Eos % (Auto) 1.1 (0-6) % Baso % (Auto) 0.6 (0-2) % Absolute Neuts (auto) 4.5 (1.5-7.7) 10^3/ul Absolute Lymphs (auto) 0.9 L (1.0-4.8) 10^3/ul Absolute Monos (auto) 0.6 (0-0.8) 10^3/ul Absolute Eos (auto) 0.1 (0-0.6) 10^3/ul Absolute Basos (auto) 0 (0-0.2) 10^3/ul Absolute Nucleated RBC 0 10^3/ul Nucleated RBC % 0 INR (Anticoag Therapy) (0.89-1.11) Sodium 138 (133-145) mmol/L Potassium 3.6 (3.5-5.0) mmol/L Chloride 112 H (101-111) mmol/L Carbon Dioxide 20 L (22-32) mmol/L Anion Gap 6 (2-11) mmol/L BUN 43 H (6-24) mg/dL Creatinine 1.20 H (0.51-0.95) mg/dL Est GFR ( Amer) 55.9 (>60) Est GFR (Non-Af Amer) 43.4 (>60) BUN/Creatinine Ratio 35.8 H (8-20) Glucose 101 H (70-100) mg/dL Lactic Acid (0.5-2.0) mmol/L Calcium 8.4 L (8.6-10.3) mg/dL Magnesium (1.9-2.7) mg/dL Total Bilirubin (0.2-1.0) mg/dL AST (13-39) U/L ALT (7-52) U/L Alkaline Phosphatase (34-104) U/L Troponin I (<0.04) ng/mL Total Protein (6.4-8.9) g/dL Albumin (3.2-5.2) g/dL Globulin (2-4) g/dL Albumin/Globulin Ratio (1-3) TSH (0.34-5.60) mcIU/mL Urine Color Urine Appearance Urine pH (5-9) Ur Specific [place] (1.010-1.030) Urine Protein (Negative) Urine Ketones (Negative) Urine Blood (Negative) Urine Nitrate (Negative) Urine Bilirubin (Negative) Urine Urobilinogen (Negative) Ur Leukocyte Esterase (Negative) Urine WBC (Auto) (Absent) Urine RBC (Auto) (Absent) Ur Squamous Epith Cells (Absent) Urine Bacteria (Absent) Hyaline Casts (Absent) Urine Glucose (Negative) Blood Type Antibody Screen Crossmatch Transfusion React Rpt Donor Unit # [id number] Post-Trans Blood Type O Positive Post-Trans HAMLET Negative Reaction Interpretation 10/24/16 10/24/16 Range/Units 06:20 10:23 WBC (3.5-10.8) 10^3/ul RBC (4.0-5.4) 10^6/ul Hgb (12.0-16.0) g/dl Hct (35-47) % MCV (80-97) fL MCH (27-31) pg MCHC (31-36) g/dl RDW (10.5-15) % Plt Count (150-450) 10^3/ul MPV (7.4-10.4) um3 Neut % (Auto) (38-83) % Lymph % (Auto) (25-47) % [place] % (Auto) (1-9) % Eos % (Auto) (0-6) % Baso % (Auto) (0-2) % Absolute Neuts (auto) (1.5-7.7) 10^3/ul Absolute Lymphs (auto) (1.0-4.8) 10^3/ul Absolute Monos (auto) (0-0.8) 10^3/ul Absolute Eos (auto) (0-0.6) 10^3/ul Absolute Basos (auto) (0-0.2) 10^3/ul Absolute Nucleated RBC 10^3/ul Nucleated RBC % INR (Anticoag Therapy) 3.05 H (0.89-1.11) Sodium (133-145) mmol/L Potassium (3.5-5.0) mmol/L Chloride (101-111) mmol/L Carbon Dioxide (22-32) mmol/L Anion Gap (2-11) mmol/L BUN (6-24) mg/dL Creatinine (0.51-0.95) mg/dL Est GFR ( Amer) (>60) Est GFR (Non-Af Amer) (>60) BUN/Creatinine Ratio (8-20) Glucose (70-100) mg/dL Lactic Acid (0.5-2.0) mmol/L Calcium (8.6-10.3) mg/dL Magnesium 2.1 (1.9-2.7) mg/dL Total Bilirubin (0.2-1.0) mg/dL AST (13-39) U/L ALT (7-52) U/L Alkaline Phosphatase (34-104) U/L Troponin I 0.02 (<0.04) ng/mL Total Protein (6.4-8.9) g/dL Albumin (3.2-5.2) g/dL Globulin (2-4) g/dL Albumin/Globulin Ratio (1-3) TSH (0.34-5.60) mcIU/mL Urine Color Urine Appearance Urine pH (5-9) Ur Specific [place] (1.010-1.030) Urine Protein (Negative) Urine Ketones (Negative) Urine Blood (Negative) Urine Nitrate (Negative) Urine Bilirubin (Negative) Urine Urobilinogen (Negative) Ur Leukocyte Esterase (Negative) Urine WBC (Auto) (Absent) Urine RBC (Auto) (Absent) Ur Squamous Epith Cells (Absent) Urine Bacteria (Absent) Hyaline Casts (Absent) Urine Glucose (Negative) Blood Type Antibody Screen Crossmatch Transfusion React Rpt Donor Unit # Post-Trans Blood Type Post-Trans HAMLET Reaction Interpretation Result Diagrams: 10/25/16 05:17 10/25/16 05:17 Lab Statement: Any lab studies that have been ordered have been reviewed, and results considered in the medical decision making process. - Radiology CXR Radiology Interpretation Completed By: Radiologist - IMPRESSION: HYPERINFLATION NO ACTIVE CARDIOPULMONARY DISEASE. - EKG 0916 EKG Interpretation: Sinus bradycardia @ [address]/T changes. Course/Dx - Diagnoses Provider Diagnoses: syncope - Physician Notifications Discussed Care Of Patient With: Dr. Longoria (Hospitalist) @ 1115. Will admit pt. - Critical Care Time Critical Care Time: 30-74 min Discharge - Discharge Plan Condition: Stable Disposition: ADMITTED TO [facility] The documentation as recorded by the Alannah lr Salem accurately reflects the service I personally performed and the decisions made by me, Aniceto Espinosa MD.
[2016-10-26] MEDS: Sucralfate TAB* 1 GM PO SCH ×4 (07:49→21:20)
[2016-10-26] MEDS: traMADol TAB* 50 MG PO PRN (07:49)
[2016-10-26] MEDS: Omeprazole CAP* 20 MG PO SCH ×2 (07:50→20:19)
[2016-10-26] MEDS: Carbidopa/Levodop 25/100 MG TAB(*) PO SCH ×4 (07:50→20:19)
[2016-10-26 07:57] LABS: Hematocrit 29 % (35-47); Hemoglobin 9.7 g/dl (12.0-16.0); Mean Corpuscular HGB Conc 34 g/dl (31-36); Mean Corpuscular Hemoglobin 31 pg (27-31); Mean Corpuscular Volume 92 fL (80-97); Mean Platelet Volume 9 um3 (7.4-10.4); Red Cell Distribution Width 18 % (10.5-15); White Blood Count 9.3 10^3/ul (3.5-10.8)
[2016-10-26 08:10] LABS: BUN/Creatinine Ratio 19.8 (8-20); Calcium 8.9 mg/dL (8.6-10.3); EGFR African American 76.9 (>60); EGFR Non-African American 59.8 (>60); Magnesium 1.8 mg/dL (1.9-2.7); Potassium 3.9 mmol/L (3.5-5.0)
[2016-10-26] MEDS ORDERED: Magnesium Sulfate 2 GM IV* 2 GM/50 ML BAG IVPB ONE (08:25)
--- NOTE | 2016-10-26 08:27 | PN ---
Subjective Date of Service: 10/26/16 Interval History: . Patient now changes her story about how many times she has "passed out and found myself all of a sudden on the floor". She initially told me 1 time in July, now she reports two times in July one time while at a stop light. She is unclear if she is actually losing consciousness. SHe reports a time in August where she was taking down the Hark tree and all of a sudden woke up and was on the floor. She reports in the last week she thinks she syncopized 10 x last Friday and states "I think there were other times in between August episode and last week". She is a poor historian and is unclear how many times and if she is actually losing consciousness or not. She was seen by her old PCP Dr. Sethi who per pt told her it was "due to old age" and she then saw her new PCP who is currently waiting for records and per pt "didnt have much to say". She reports last night she got up to use the bathroom 2-3 xs and one time on the way back from the bathroom she all of a sudden felt like she was going to "go down" which is a similar feeling to what she has experienced before, she got into bed and it resolved. She reports she was "maybe SOB", denied palpitations, nausea, or CP. She continues to have epigastric pain which is her biggest complaint. No further dark stools. She reports the pain gets better with crackers and worse after she drank soda. Objective Active Medications: Acetaminophen (Tylenol Tab*) 650 mg PO Q6H PRN PRN Reason: PAIN Last Admin: 10/24/16 23:22 Dose: 650 mg Carbidopa/Levodopa (Sinemet 25/100 Tab(*)) 2 tab PO 0800,1200 EDY Last Admin: 10/26/16 07:50 Dose: 2 tab Carbidopa/Levodopa (Sinemet 25/100 Tab(*)) 2 tab PO 2100 EDY Last Admin: 10/25/16 21:18 Dose: 2 tab Carbidopa/Levodopa (Sinemet 25/100 Tab(*)) 2.5 tab PO 1600 EDY Last Admin: 10/25/16 17:12 Dose: 2.5 tab Dofetilide (Tikosyn Cap*) 125 mcg PO BID ED[facility] Last Admin: 10/25/16 21:19 Dose: 125 mcg Furosemide (Lasix Tab*) 20 mg PO DAILY [facility] Magnesium Sulfate (Magnesium Sulfate 2 Gm Iv*) 2 gm in 50 mls @ 50 mls/hr IVPB ONCE ONE Stop: 10/26/16 09:24 Lisinopril (Prinivil Tab*) 10 mg PO DAILY [facility] Metoprolol Tartrate (Lopressor Tab*) 25 mg PO BID [facility] Last Admin: 10/25/16 21:19 Dose: 25 mg Omeprazole (Prilosec Cap*) 20 mg PO BID AC [facility] Last Admin: 10/26/16 07:50 Dose: 20 mg Sucralfate (Carafate*) 1 gm PO QID [facility] Last Admin: 10/26/16 07:49 Dose: 1 gm Tramadol HCl (Ultram*) 50 mg PO Q6H PRN PRN Reason: PAIN Last Admin: 10/26/16 07:49 Dose: 50 mg Vital Signs 10/25/16 10/25/16 10/25/16 11:44 14:54 15:15 Temperature 99.2 F 97.7 F Pulse Rate 65 60 Respiratory 16 16 16 Rate Blood Pressure 182/94 151/86 (mmHg) O2 Sat by Pulse 99 98 Oximetry 10/25/16 10/25/16 10/25/16 16:54 20:00 20:37 Temperature 98.0 F Pulse Rate 60 Respiratory 18 18 18 Rate Blood Pressure 152/76 (mmHg) O2 Sat by Pulse 97 Oximetry 10/25/16 10/25/16 10/26/16 23:37 23:51 01:51 Temperature 97.8 F Pulse Rate 64 Respiratory 24 16 12 Rate Blood Pressure 151/102 (mmHg) O2 Sat by Pulse 96 Oximetry 10/26/16 10/26/16 10/26/16 04:05 04:46 07:49 Temperature 98.5 F Pulse Rate 60 52 Respiratory 16 16 16 Rate Blood Pressure 192/93 173/63 (mmHg) O2 Sat by Pulse 100 96 Oximetry Oxygen Devices in Use Now: None Appearance: eldelry female laying in bed in NAD, A+O x3 Eyes: No Scleral Icterus, PERRLA Ears/Nose/Mouth/Throat: NL Teeth, Lips, Gums, Mucous Membranes Moist Neck: NL Appearance and Movements; NL JVP Respiratory: Symmetrical Chest Expansion and Respiratory Effort, Clear to Auscultation Cardiovascular: NL Sounds; No Murmurs; No JVD, RRR, No Edema Abdominal: - - epigastric tenderness to palpation, otherwise soft nontender throughout, NL BS, non distended Extremities: No Edema, No Clubbing, Cyanosis Skin: No Rash or Ulcers, No Nodules or Sclerosis Neurological: Alert and Oriented x 3, NL Sensation, NL Muscle Strength and Tone Lines/Tubes/Other Access: Clean, Dry and Intact Peripheral IV Nutrition: Taking PO's Result Diagrams: 10/26/16 07:29 10/26/16 07:30 Additional Lab and Data: Lab Results Laboratory Last Values WBC 9.3 10^3/ul (3.5-10.8) 10/26/16 07:29 RBC 3.10 10^6/ul (4.0-5.4) L 10/26/16 07:29 Hgb 9.7 g/dl (12.0-16.0) L 10/26/16 07:29 Hct 29 % (35-47) L 10/26/16 07:29 MCV 92 fL (80-97) 10/26/16 07:29 MCH 31 pg (27-31) 10/26/16 07:29 MCHC 34 g/dl (31-36) 10/26/16 07:29 RDW 18 % (10.5-15) H 10/26/16 07:29 Plt Count 208 10^3/ul (150-450) 10/26/16 07:29 MPV 9 um3 (7.4-10.4) 10/26/16 07:29 Neut % (Auto) 79.8 % (38-83) 10/26/16 07:29 Lymph % (Auto) 8.7 % (25-47) L 10/26/16 07:29 Yates % (Auto) 10.2 % (1-9) H 10/26/16 07:29 Eos % (Auto) 0.9 % (0-6) 10/26/16 07:29 Baso % (Auto) 0.4 % (0-2) 10/26/16 07:29 Absolute Neuts (auto) 7.4 10^3/ul (1.5-7.7) 10/26/16 07:29 Absolute Lymphs (auto) 0.8 10^3/ul (1.0-4.8) L 10/26/16 07:29 Absolute Monos (auto) 0.9 10^3/ul (0-0.8) H 10/26/16 07:29 Absolute Eos (auto) 0.1 10^3/ul (0-0.6) 10/26/16 07:29 Absolute Basos (auto) 0 10^3/ul (0-0.2) 10/26/16 07:29 Absolute Nucleated RBC 0.01 10^3/ul 10/26/16 07:29 Nucleated RBC % 0.1 10/26/16 07:29 INR (Anticoag Therapy) 1.44 (0.89-1.11) H 10/25/16 05:17 Sodium 137 mmol/L (133-145) 10/26/16 07:30 Potassium 3.9 mmol/L (3.5-5.0) 10/26/16 07:30 Chloride 106 mmol/L (101-111) 10/26/16 07:30 Carbon Dioxide 25 mmol/L (22-32) 10/26/16 07:30 Anion Gap 6 mmol/L (2-11) 10/26/16 07:30 BUN 18 mg/dL (6-24) 10/26/16 07:30 Creatinine 0.91 mg/dL (0.51-0.95) 10/26/16 07:30 Est GFR ( Amer) 76.9 (>60) 10/26/16 07:30 Est GFR (Non-Af Amer) 59.8 (>60) 10/26/16 07:30 BUN/Creatinine Ratio 19.8 (8-20) 10/26/16 07:30 Glucose 118 mg/dL (70-100) H 10/26/16 07:30 Lactic Acid 0.7 mmol/L (0.5-2.0) 10/23/16 10:27 Calcium 8.9 mg/dL (8.6-10.3) 10/26/16 07:30 Magnesium 1.8 mg/dL (1.9-2.7) L 10/26/16 07:30 Total Bilirubin 0.60 mg/dL (0.2-1.0) 10/23/16 10:27 AST 10 U/L (13-39) L 10/23/16 10:27 ALT < 3 U/L (7-52) L 10/23/16 10:27 Alkaline Phosphatase 52 U/L (34-104) 10/23/16 10:27 Troponin I 0.02 ng/mL (<0.04) 10/24/16 10:23 Total Protein 7.3 g/dL (6.4-8.9) 10/23/16 10:27 Albumin 4.2 g/dL (3.2-5.2) 10/23/16 10:27 Globulin 3.1 g/dL (2-4) 10/23/16 10:27 Albumin/Globulin Ratio 1.4 (1-3) 10/23/16 10:27 TSH 0.35 mcIU/mL (0.34-5.60) 10/23/16 10:27 Urine Color Yellow 10/23/16 11:05 Urine Appearance Clear 10/23/16 11:05 Urine pH 5.0 (5-9) 10/23/16 11:05 Ur Specific [place] 1.011 (1.010-1.030) 10/23/16 11:05 Urine Protein Negative (Negative) 10/23/16 11:05 Urine Ketones Trace (Negative) H 10/23/16 11:05 Urine Blood Negative (Negative) 10/23/16 11:05 Urine Nitrate Negative (Negative) 10/23/16 11:05 Urine Bilirubin Negative (Negative) 10/23/16 11:05 Urine Urobilinogen Negative (Negative) 10/23/16 11:05 Ur Leukocyte Esterase Trace (Negative) H 10/23/16 11:05 Urine WBC (Auto) Trace(0-5/hpf) (Absent) 10/23/16 11:05 Urine RBC (Auto) Absent (Absent) 10/23/16 11:05 Ur Squamous Epith Cells Present (Absent) H 10/23/16 11:05 Urine Bacteria Absent (Absent) 10/23/16 11:05 Hyaline Casts Present (Absent) H 10/23/16 11:05 Urine Glucose Negative (Negative) 10/23/16 11:05 Blood Type O Positive 10/23/16 16:49 Antibody Screen Negative 10/23/16 16:49 Crossmatch See Detail 10/23/16 16:49 Transfusion React Rpt 10/24/16 01:41 Donor Unit # [id number] 10/24/16 01:41 Post-Trans Blood Type O Positive 10/24/16 01:41 Post-Trans HAMLET Negative 10/24/16 01:41 Reaction Interpretation 10/24/16 01:41 Microbiology and Other Data: Microbiology 10/23/16 21:05 Transfusion Reaction Culture - Preliminary Blood Bag Culture Under Incubation Transfusion Reaction Gram Stain - Final 10/24/16 01:56 Transfusion Reaction Gram Stain - Final Blood Bag 10/23/16 13:45 Stool Occult Blood (NANCY) - Final Stool Assess/Plan/Problems-Billing Assessment: Ms. Phelan is a 76 yo female with hx of afib on coumadin, sick sinus syndrome s/p dual chamber pacer, CAD, TIA and hx of Parkinsons, hx of peptic ulcer disease who has had recurrent syncopal episodes and black stool. - Patient Problems (1) Syncope Comment: - Possible orthostatsis secondary to GI bleed with no further episodes during hospitalization after volume resusitation and blood transfusions. However I have concerns as the patient is noted to have short runs of VTACH intermittently in which she has mostly been asymptomatic to...... However she does report last night she was OOB several times to use bathroom and during one of the times felt weak like she was going to pass out, she thinks around 2-3am and there is a noted 4-5 beats of Vtach at that time but no nursing note to confirm. Pt now changes her story reporting multiple episodes of syncope since early July. - Pacer interrogation shows run of VTACH in July and pt reports syncopal episode in July but doesnt remember the date. - TTE showing "normal wall motion and contractility LVEF 55-60%. Mild diastolic dysfunction, impaired relaxation. Right ventricular global systolic function is melissa;. Left atrium is mod-severely dilated, mild-mod MR, trace-mild tricuspid regurg. Compared to TTE 01/2012 EF is stable, MR is new, left atrial enlargement is new". - Obtained records from cardiology office and reviewed (primary jai alai player Dr. Mittal)- last pacer interrogation 06/04/16 showing normal pacer function with afib episodes <0.1%. Last echo 2011. - continue tele monitoring, appreciate cards consult - recommends D/C tikosyn at this time. Starting cardizem in 2 days, can start digoxin now. Hold coumadin for now and re-evaluate with cards in 2 weeks. DC lisinopril. Hold lasix for now. + orthostatic VS this am suspect 2nd to lisinopril (2) GI (gastrointestinal bleed) Comment: - Upper GI bleed, positive stool occult blood. Hgb dropped to 6.1 received 2 units PRBCs. INR noted to be supratherapuetic on admission 4.03, was given Vitamin K. INR 1.44. Hgb 9.7 and stable. No further black stools. VSS stable. - EGD 10/24 - showing prepyloric gastric ulcer - pt encourage to f/u with colonoscopy as outpt as she has no hx of one; she is refusing at this time - continue PPI and carafate (3) A-fib Comment: - continue metoprolol to 50 mg BID (half home dose). DC Tikosyn. GIve 1 x dose Digoxin now. - Hold coumadin. (4) Acute kidney failure Comment: - Resolved with IVFs (5) Diastolic heart failure Comment: - stable. - continue to hold Lasix (6) Parkinsons Comment: - continue Sinemet (7) Hypertension Comment: - continue home metoprolol and lisinopril (8) DVT prophylaxis Comment: SCDs only in the setting of GI bleed. (9) Full code status Status and Disposition: inpatient. Home when medically stable. Continued stay for tele monitoring for VTACH and medication changes.
[2016-10-26] MEDS ORDERED: Furosemide TAB* 20 MG PO SCH (09:00)
[2016-10-26] MEDS ORDERED: Lisinopril TAB* 10 MG PO SCH ×2 (09:00→10:24)
[2016-10-26] MEDS: Metoprolol Tartrate TAB* 50 mg PO SCH ×2 (09:51→20:19)
[2016-10-26] MEDS: Dofetilide CAP* 125 MCG PO SCH (09:51)
[2016-10-26] MEDS ORDERED: Potassium Chloride LIQUID* 20 MEQ PACKET PO ONE (12:00)
[2016-10-26] MEDS ORDERED: Digoxin TAB* 0.25 MG PO ONE (17:00)
[2016-10-26] MEDS ORDERED: Warfarin TAB(*) 5 MG PO SCH (17:00)
[2016-10-26] MEDS: Acetaminophen TAB* 325 MG PO PRN (21:20)
--- NOTE | 2016-10-26 23:51 | CONS ---
CC: Dr. Mittal; Dr. Damon CARDIOLOGY EVALUATION: DATE OF CONSULT: 10/26/16 PATIENT OF: Dr. Mittal and Dr. Damon. REASON FOR EVALUATION: Syncope, AFib, and nonsustained VT. CONSULTING PROVIDER: Edda Marie NP SOURCE OF THE INFORMATION: Edda Marie NP; the chart; the patient. The patient is somewhat a confusing historian, who seems to vary her description of her history on occasion. HISTORY OF PRESENT ILLNESS: This is a 76-year-old woman who has had multiple spells of passing out. She has a history of paroxysmal atrial fibrillation, on Tikosyn; hypertension; multiple episodes o f falling down, they have been present over the last few months, but just prior to admission, she de d dark tarry stools and was admitted on the with GI bleed. She was admitted, had a hemoglobin o f 8.1, and had been 10 on 05/03/16. She also had acute injury of kidneys with a creatinine of 2.17 and a BUN of 62. Since admission, she has had improvement in her renal function, but has continued to have some orthostatic lightheadedness, which occurred today when she got up to go to the bathroom . She also has been noted to have some brief spells of nonsustained VT at approximately 150 beats p er minute. She reports that she was having spells of finding herself on the floor about several maida es a week in July, August, and September. She said that in July, she had an episode when dr baker to a medical appointment, while sitting in the car, she heard everybody beeping at her while s he was in traffic. She thought maybe she had fallen asleep. She did have a pacemaker evaluation , which revealed mode switching 3.2% of the time, longest episode of 6 hours, and EGM consist ent with atrial flutter. She also had a nonsustained VT x2 in July, one episode consistent with atrial origin, the second episode consistent with VT x10 seconds with rates near 150 to 160. She also has listed multiple episodes of atrial fast rates with average ventricular responses in 80s and 90s and the episode on August 01 at 9:57 a.m., the rate accelerated and then was very close to the detection limit of approximately 150 beats per minute, slightly above and slightly below. 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 She was seen by Dr. Plata and started on Tikosyn in 2008, she has been on it since. She denies any syncopal episodes until the f all of last year around July. She denies chest pain. She said occasionally she gets short of b reath. She said she has been able to do less over the last 6 months because she gets tired more easi ly. She also has had some balance problems due to Parkinson's. She denies fevers, chills, or sweat s. No dysuria. PAST MEDICAL HISTORY: Includes, hypertension with some labile blood pressures, TIA in approximately 2007, Parkinson's, recent GI bleed, renal insufficiency. She also said she had bleeding ulcer in t he 30s. PAST SURGICAL HISTORY: Includes appendectomy, hysterectomy, pacemaker implantation in 2007 and km loulou and it was replaced again in April of 2016 due to battery depletion. MEDICATIONS: Includes: 1. Warfarin. 2. Furosemide 20 mg a day. 3. Lisinopril 10 mg a day. 4. Metoprolol tartrate 100 mg b.i.d. 5. Carbidopa/levodopa 25/100 two tabs at 8 o'clock and 12 o'clock and 2100 and 2.5 tabs at 1600. 6. Tikosyn 250 p.o. b.i.d. As an inpatient, she is on: 1. Acetaminophen. 2. Sinemet. 3. Metoprolol 50 mg b.i.d., increased from 25 b.i.d. yesterday. 4. Omeprazole 40 mg b.i.d. 5. Carafate 1 g four times a day. 6. Her Tikosyn, furosemide, and lisinopril have been discontinued. 7. She had received magnesium and potassium. 8. She had been on tramadol as an inpatient that has been discontinued. ALLERGIES: She also has allergies to PENICILLIN. FAMILY HISTORY: She had a sister who of lung cancer and a mother who of lung cancer at 74 and her father of an [place] and lung cancer at 79. She does have a daughter. SOCIAL HISTORY: She drinks decaffeinated coffee once a day. She has occasional red wine. She jolene es tobacco use. She is for the last 35 years and lives on her own. She stopped driving in July after her episode of confusion while driving. 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 REVIEW OF SYSTEMS: Review of systems x10 was negative except as above. PHYSICAL EXAM: General: She is a well-developed, well-nourished female, in no apparent distress. Pulse 67 and blood pressure 110/69. Multiple bruises on her arms and ecchymosis over the right side of her face. No significant JVD. Carotids 2+ without bruits. No cervical adenopathy or thyromega ly. Cardiac Exam: S1, S2 with a 2/6 holosystolic murmur at the left lower sternal border. Chest w as clear. Extremities: No edema. Distal pulses intact. Abdomen: Mild tenderness in the epigastri c area, which she attributes to her ulcer. She is alert and oriented x3. DIAGNOSTIC STUDIES/LAB DATA: Echo performed on October 23 revealed mild LVH, EF of 55% to 60%, abnor mal diastolic function, [id number] left atrial enlargement, pacing wire present, aortic scle rosis, [id number] MR, trace-to- mild TR, and [id number] TI, compared to January of 2012, the E F is stable, MR is new, and left atrial enlargement is new. Labs include white count of 9.3; hemoglobin 9.7 and hematocrit 29 up from hemoglobin 8.1 and hematoc rit of 25 on admission, which dropped as low as hemoglobin of 6.1 and hematocrit 18 on October 23 at 1607. INR was 4.03 on the , it was down to 1.44 yesterday. Sodium 137; potassium of 3.9, potass ium had been 3.5 yesterday; BUN 18 and creatinine 0.9, had been as high as 62/2.17; magnesium was do wn to 1.8, today it has been replaced. Troponin was 0.01 and 0.02. TSH was normal. Chest x-ray from October 24 revealed no active cardiopulmonary disease. EKG from October 23 revealed sinus rhythm at 60 with counterclockwise rotation and diffuse T-wave fla ttening. EKG from October 24 showed improvement in the T-wave changes. EKG from April of 2016 r evealed a paced rhythm and she did have some runs of nonsustained VT here, one of which was noted to be 5 beats up to approximately 150s per minute and the QT on presentation was 462 with QTc of 462. IMPRESSION AND PLAN: My impression is that Ms. Phelan has complex medical history, which includes sheri gstanding history of paroxysmal atrial arrhythmias as well as recent syncopal episodes of unclear et iology. Contributing factors could be orthostatic lightheadedness; autonomic dysfunction in the pre sence of Parkinson's disease, on Sinemet, as well as antihypertensive medications contributing to or thostatic lightheadedness as well as tachyarrhythmias. I am concerned about her increased risk for morbidity from Tikosyn given her labile blood pressures, her falling, and nonsustained ventricular a rrhythmias noted. Some of these are near the detection range of the pacemaker, so that the frequenc y of her ventricular tachycardia may be underestimated. Her spells of finding herself on the floor may be consistent with acute drop in blood pressure or ventricular arrhythmias. Sometimes, she will get a warning feeling as though her vision is closing and at other times, she has no warning. It is not clear that she is markedly symptomatic from her episodes of atrial fibrillation as well. For t he time being, given the overall picture, I would recommend the followin. I concur with holding her anticoagulation in light of her recent ulcer and in setting of gastroi ntestinal bleed as well as risk for falling and injury. 2. Would stop her lisinopril and follow her blood pressures in case it is contributing to orthostat ic lightheadedness. 3. Would hold her Tikosyn as you are doing given the potential for malignant ventricular arrhythmia s and potential relationship to her falls and syncopal episodes. 4. Would consider adding more rate control if needed and tolerated. Would continue metoprolol at 5 0 mg twice a day. 5. If she can tolerate and needs rate control, consider adding diltiazem. If not, consider adding digoxin. 6. Would try to maintain her potassium over 4 and would replace her magnesium as you are doing. 7. Further recommendation would depend on her clinical course. If she does develop symptomatic atr ial fibrillation despite rate control, she may have to be reconsidered for antiarrhythmic therapy. I suspect that given her age and left atrial enlargement, it is unlikely that rhythm control will be a successful strategy in the future. 8. In addition, given her age and risk factors and nonsustained ventricular tachycardia, would cons ider obtaining a pharmacologic stress test at some point to evaluate for ischemia. [id number]/[facility] #: [id number]
[2016-10-27] MEDS: Sucralfate TAB* 1 GM PO SCH ×4 (05:33→21:09)
[2016-10-27 07:22] LABS: Hematocrit 29 % (35-47); Hemoglobin 9.7 g/dl (12.0-16.0); Mean Corpuscular HGB Conc 34 g/dl (31-36); Mean Corpuscular Hemoglobin 31 pg (27-31); Mean Corpuscular Volume 93 fL (80-97); Mean Platelet Volume 9 um3 (7.4-10.4); Red Blood Count 3.09 10^6/ul (4.0-5.4); Red Cell Distribution Width 18 % (10.5-15); White Blood Count 7.7 10^3/ul (3.5-10.8)
[2016-10-27 07:27] LABS: Calcium 8.9 mg/dL (8.6-10.3); EGFR African American 83.2 (>60); EGFR Non-African American 64.7 (>60); Magnesium 2.1 mg/dL (1.9-2.7); Potassium 3.9 mmol/L (3.5-5.0)
[2016-10-27] MEDS: Carbidopa/Levodop 25/100 MG TAB(*) PO SCH ×4 (07:56→21:09)
[2016-10-27] MEDS: Omeprazole CAP* 20 MG PO SCH ×2 (07:56→15:58)
[2016-10-27] MEDS: Metoprolol Tartrate TAB* 50 mg PO SCH ×2 (07:56→21:09)
[2016-10-27] MEDS ORDERED: Lisinopril TAB* 10 MG PO SCH (09:00)
[2016-10-27] MEDS ORDERED: Diltiazem CD CAP* 120 MG PO ONE (15:00)
--- NOTE | 2016-10-27 15:04 | PN ---
Subjective Date of Service: 10/27/16 Interval History: patient reports she feels much better today. No episodes of lightheadedness. continues to report epigastric pain, which she states overall is better but is still bothering her. She reported one episode today she had epigastric pain that radiated to her midsternal chest. No SOB or diaphoresis. No N/V. No dark/ tarry or bloody stools. Objective Active Medications: Acetaminophen (Tylenol Tab*) 650 mg PO Q6H PRN PRN Reason: PAIN Last Admin: 10/26/16 21:20 Dose: 650 mg Carbidopa/Levodopa (Sinemet 25/100 Tab(*)) 2 tab PO 0800,1200 [facility] Last Admin: 10/27/16 11:18 Dose: 2 tab Carbidopa/Levodopa (Sinemet 25/100 Tab(*)) 2 tab PO 2100 [facility] Last Admin: 10/26/16 20:19 Dose: 2 tab Carbidopa/Levodopa (Sinemet 25/100 Tab(*)) 2.5 tab PO 1600 [facility] Last Admin: 10/26/16 16:37 Dose: 2.5 tab Diltiazem HCl (Cardizem Cd Cap*) 120 mg PO ONCE ONE Stop: 10/27/16 15:01 Last Admin: 10/27/16 14:39 Dose: 120 mg Diltiazem HCl (Cardizem Cd Cap*) 120 mg PO DAILY [facility] Metoprolol Tartrate (Lopressor Tab*) 50 mg PO BID [facility] Last Admin: 10/27/16 07:56 Dose: 50 mg Omeprazole (Prilosec Cap*) 40 mg PO BID [facility] Last Admin: 10/27/16 07:56 Dose: 40 mg Potassium Chloride (Klor-Con Liquid*) 20 meq PO ONCE ONE Stop: 10/28/16 15:01 Sucralfate (Carafate*) 1 gm PO 0600,1100,1600,2100 [facility] Last Admin: 10/27/16 11:18 Dose: 1 gm Vital Signs 10/26/16 10/26/16 10/26/16 15:24 16:36 19:29 Temperature 97.3 F 98.2 F Pulse Rate 60 60 61 Respiratory 20 20 Rate Blood Pressure 170/90 126/71 (mmHg) O2 Sat by Pulse 90 98 Oximetry 10/26/16 10/26/16 10/27/16 20:00 23:34 00:45 Temperature 97.5 F 97.5 F Pulse Rate 60 63 Respiratory 18 16 16 Rate Blood Pressure 178/87 150/80 (mmHg) O2 Sat by Pulse 98 96 Oximetry 10/27/16 10/27/16 10/27/16 04:02 08:00 11:56 Temperature 98.1 F 99.5 F 99.2 F Pulse Rate 61 62 58 Respiratory 16 16 16 Rate Blood Pressure 179/82 180/96 159/75 (mmHg) O2 Sat by Pulse 98 98 98 Oximetry Oxygen Devices in Use Now: None Appearance: 76 yo female sitting up in bed in NAD. A+O x3 Eyes: No Scleral Icterus, PERRLA Ears/Nose/Mouth/Throat: NL Teeth, Lips, Gums, Mucous Membranes Moist Neck: NL Appearance and Movements; NL JVP Respiratory: Symmetrical Chest Expansion and Respiratory Effort, Clear to Auscultation Cardiovascular: NL Sounds; No Murmurs; No JVD, RRR, No Edema Abdominal: - - epigastric tenderness to palpation. otherwise soft, nontender, NL BS, nondistended Extremities: No Edema Neurological: Alert and Oriented x 3, NL Sensation, NL Gait, NL Muscle Strength and Tone Lines/Tubes/Other Access: Clean, Dry and Intact Peripheral IV Nutrition: Taking PO's Result Diagrams: 10/27/16 06:23 10/27/16 06:23 Additional Lab and Data: Lab Results Laboratory Last Values WBC 9.3 10^3/ul (3.5-10.8) 10/26/16 07:29 RBC 3.10 10^6/ul (4.0-5.4) L 10/26/16 07:29 Hgb 9.7 g/dl (12.0-16.0) L 10/26/16 07:29 Hct 29 % (35-47) L 10/26/16 07:29 MCV 92 fL (80-97) 10/26/16 07:29 MCH 31 pg (27-31) 10/26/16 07:29 MCHC 34 g/dl (31-36) 10/26/16 07:29 RDW 18 % (10.5-15) H 10/26/16 07:29 Plt Count 208 10^3/ul (150-450) 10/26/16 07:29 MPV 9 um3 (7.4-10.4) 10/26/16 07:29 Neut % (Auto) 79.8 % (38-83) 10/26/16 07:29 Lymph % (Auto) 8.7 % (25-47) L 10/26/16 07:29 [place] % (Auto) 10.2 % (1-9) H 10/26/16 07:29 Eos % (Auto) 0.9 % (0-6) 10/26/16 07:29 Baso % (Auto) 0.4 % (0-2) 10/26/16 07:29 Absolute Neuts (auto) 7.4 10^3/ul (1.5-7.7) 10/26/16 07:29 Absolute Lymphs (auto) 0.8 10^3/ul (1.0-4.8) L 10/26/16 07:29 Absolute Monos (auto) 0.9 10^3/ul (0-0.8) H 10/26/16 07:29 Absolute Eos (auto) 0.1 10^3/ul (0-0.6) 10/26/16 07:29 Absolute Basos (auto) 0 10^3/ul (0-0.2) 10/26/16 07:29 Absolute Nucleated RBC 0.01 10^3/ul 10/26/16 07:29 Nucleated RBC % 0.1 10/26/16 07:29 INR (Anticoag Therapy) 1.44 (0.89-1.11) H 10/25/16 05:17 Sodium 137 mmol/L (133-145) 10/26/16 07:30 Potassium 3.9 mmol/L (3.5-5.0) 10/26/16 07:30 Chloride 106 mmol/L (101-111) 10/26/16 07:30 Carbon Dioxide 25 mmol/L (22-32) 10/26/16 07:30 Anion Gap 6 mmol/L (2-11) 10/26/16 07:30 BUN 18 mg/dL (6-24) 10/26/16 07:30 Creatinine 0.91 mg/dL (0.51-0.95) 10/26/16 07:30 Est GFR ( Amer) 76.9 (>60) 10/26/16 07:30 Est GFR (Non-Af Amer) 59.8 (>60) 10/26/16 07:30 BUN/Creatinine Ratio 19.8 (8-20) 10/26/16 07:30 Glucose 118 mg/dL (70-100) H 10/26/16 07:30 Lactic Acid 0.7 mmol/L (0.5-2.0) 10/23/16 10:27 Calcium 8.9 mg/dL (8.6-10.3) 10/26/16 07:30 Magnesium 1.8 mg/dL (1.9-2.7) L 10/26/16 07:30 Total Bilirubin 0.60 mg/dL (0.2-1.0) 10/23/16 10:27 AST 10 U/L (13-39) L 10/23/16 10:27 ALT < 3 U/L (7-52) L 10/23/16 10:27 Alkaline Phosphatase 52 U/L (34-104) 10/23/16 10:27 Troponin I 0.02 ng/mL (<0.04) 10/24/16 10:23 Total Protein 7.3 g/dL (6.4-8.9) 10/23/16 10:27 Albumin 4.2 g/dL (3.2-5.2) 10/23/16 10:27 Globulin 3.1 g/dL (2-4) 10/23/16 10:27 Albumin/Globulin Ratio 1.4 (1-3) 10/23/16 10:27 TSH 0.35 mcIU/mL (0.34-5.60) 10/23/16 10:27 Urine Color Yellow 10/23/16 11:05 Urine Appearance Clear 10/23/16 11:05 Urine pH 5.0 (5-9) 10/23/16 11:05 Ur Specific [place] 1.011 (1.010-1.030) 10/23/16 11:05 Urine Protein Negative (Negative) 10/23/16 11:05 Urine Ketones Trace (Negative) H 10/23/16 11:05 Urine Blood Negative (Negative) 10/23/16 11:05 Urine Nitrate Negative (Negative) 10/23/16 11:05 Urine Bilirubin Negative (Negative) 10/23/16 11:05 Urine Urobilinogen Negative (Negative) 10/23/16 11:05 Ur Leukocyte Esterase Trace (Negative) H 10/23/16 11:05 Urine WBC (Auto) Trace(0-5/hpf) (Absent) 10/23/16 11:05 Urine RBC (Auto) Absent (Absent) 10/23/16 11:05 Ur Squamous Epith Cells Present (Absent) H 10/23/16 11:05 Urine Bacteria Absent (Absent) 10/23/16 11:05 Hyaline Casts Present (Absent) H 10/23/16 11:05 Urine Glucose Negative (Negative) 10/23/16 11:05 Blood Type O Positive 10/23/16 16:49 Antibody Screen Negative 10/23/16 16:49 Crossmatch See Detail 10/23/16 16:49 Transfusion React Rpt 10/24/16 01:41 Donor Unit # [id number] 10/24/16 01:41 Post-Trans Blood Type O Positive 10/24/16 01:41 Post-Trans HAMLET Negative 10/24/16 01:41 Reaction Interpretation 10/24/16 01:41 Microbiology and Other Data: Microbiology 10/23/16 21:05 Transfusion Reaction Culture - Preliminary Blood Bag Culture Under Incubation Transfusion Reaction Gram Stain - Final 10/24/16 01:56 Transfusion Reaction Gram Stain - Final Blood Bag 10/23/16 13:45 Stool Occult Blood (NANCY) - Final Stool Assess/Plan/Problems-Billing Assessment: Ms. Phelan is a 76 yo female with hx of afib on coumadin, sick sinus syndrome s/p dual chamber pacer, CAD, TIA and hx of Parkinsons, hx of peptic ulcer disease who has had recurrent syncopal episodes and black stool. - Patient Problems (1) Syncope Comment: - Possible orthostatsis secondary to GI bleed but concern for nonsustained VTACH which has been noted on tele. - No runs of VTACH noted since D/C'd Tikosyn yesterday. - Pacer interrogation shows run of VTACH in July and pt reports syncopal episode in July but doesnt remember the date. - TTE showing "normal wall motion and contractility LVEF 55-60%. Mild diastolic dysfunction, impaired relaxation. Right ventricular global systolic function is melissa;. Left atrium is mod-severely dilated, mild-mod MR, trace-mild tricuspid regurg. Compared to TTE 01/2012 EF is stable, MR is new, left atrial enlargement is new". - Obtained records from cardiology office and reviewed (primary gas treater Dr. Mittal)- last pacer interrogation 06/04/16 showing normal pacer function with afib episodes <0.1%. Last echo 2011. - appreciate cards consult by Dr. Izquierdo - D/C tikosyn. Start cardizem CD 120 mg today, hold off on further Digoxin unless her rate becomes uncontrolled. Hold coumadin for now and re-evaluate with cards in 2 weeks due to syncope. DC lisinopril. Hold lasix for now. Plan for cardiac stress test in am. (2) GI (gastrointestinal bleed) Comment: - Resolved. - Upper GI bleed, positive stool occult blood. Hgb dropped to 6.1 received 2 units PRBCs. INR noted to be supratherapuetic on admission 4.03, was given Vitamin K. INR 1.44. Hgb 9.7 and stable. No further black stools. VSS stable. - EGD 10/24 - showing prepyloric gastric ulcer (per GI she could restart her coumadin but it is being held 2nd syncope) - pt encourage to f/u with colonoscopy as outpt as she has no hx of one; she is refusing at this time - continue PPI and carafate (3) A-fib Comment: - continue metoprolol to 50 mg BID (half home dose). Tikosyn DC 10/26. start Cardizem CD 120 mg daily, titrate up as needed - Hold coumadin. (4) Acute kidney failure Comment: - Resolved with IVFs (5) Diastolic heart failure Comment: - stable. - continue to hold Lasix (6) Parkinsons Comment: - continue Sinemet (7) Hypertension Comment: - uncontrolled. continue home metoprolol, cardizem started today. Continue to monitor (8) DVT prophylaxis Comment: SCDs only in the setting of GI bleed. (9) Full code status Status and Disposition: inpatient. Home when medically stable. Continued stay for tele monitoring for VTACH and medication changes.
[2016-10-27] MEDS ORDERED: Lidocaine 2% VISCOUS* 15 ML UDC PO ONE (17:20)
[2016-10-27] MEDS ORDERED: Al Hydrox/Mg Hydrox/Simet LIQ* 30 ML UDC PO ONE (17:20)
[2016-10-27] MEDS ORDERED: hydrALAZINE IV* 20 MG/ML VIAL IV SLOW PU PRN (18:08)
[2016-10-28] MEDS: Sucralfate TAB* 1 GM PO SCH ×4 (05:16→20:46)
[2016-10-28] MEDS: Carbidopa/Levodop 25/100 MG TAB(*) PO SCH ×4 (07:45→20:46)
[2016-10-28] MEDS: Omeprazole CAP* 20 MG PO SCH ×2 (07:45→16:43)
[2016-10-28] MEDS ORDERED: Aminophylline IV* 25 MG/ML 10 ML VIAL ONE (08:44)
[2016-10-28] MEDS ORDERED: Regadenoson* 0.4 MG/5 ML SYRINGE ONE (08:44)
--- NOTE | 2016-10-28 10:14 | PN ---
Subjective Date of Service: 10/28/16 Interval History: Patient reports she felt "really good this morning". She was up in the bathroom when she got off the toilet "felt weak in the legs then all of a sudden I was on the ground" she doesnt remember falling. She was found sitting on her bottom awake, small scrap on left arm but otherwise no injuries. Denies any head trauma. I was then called to the patients room acutely by the nurse for the patient was getting OOB with nursing students and "went limp", when she was sat back down she was awake but confused. I evaluated the patient in the chair and the patient was noted to be confused, I took her BP manually and noted 58/30. She was transferred to the bed and BP on recheck was 110/70 and her mental status was clear. She denies any focal weakness. No CP or SOB. No dizziness. Objective Active Medications: Acetaminophen (Tylenol Tab*) 650 mg PO Q6H PRN PRN Reason: PAIN Last Admin: 10/26/16 21:20 Dose: 650 mg Carbidopa/Levodopa (Sinemet 25/100 Tab(*)) 2 tab PO 0800,1200 [facility] Last Admin: 10/28/16 07:45 Dose: 2 tab Carbidopa/Levodopa (Sinemet 25/100 Tab(*)) 2 tab PO 2100 [facility] Last Admin: 10/27/16 21:09 Dose: 2 tab Carbidopa/Levodopa (Sinemet 25/100 Tab(*)) 2.5 tab PO 1600 [facility] Last Admin: 10/27/16 15:59 Dose: 2.5 tab Diltiazem HCl (Cardizem Cd Cap*) 120 mg PO DAILY [facility] Hydralazine HCl (Apresoline Iv*) 5 mg IV SLOW PU Q6H PRN PRN Reason: BLOOD PRESSURE Metoprolol Tartrate (Lopressor Tab*) 50 mg PO BID [facility] Last Admin: 10/27/16 21:09 Dose: 50 mg Omeprazole (Prilosec Cap*) 40 mg PO BID AC [facility] Last Admin: 10/28/16 07:45 Dose: 40 mg Potassium Chloride (Klor-Con Liquid*) 20 meq PO ONCE ONE Stop: 10/28/16 15:01 Sucralfate (Carafate*) 1 gm PO 0600,1100,1600,2100 [facility] Last Admin: 10/28/16 05:16 Dose: 1 gm Vital Signs 10/27/16 10/27/16 10/27/16 11:56 15:17 15:18 Temperature 99.2 F 97.2 F Pulse Rate 58 70 63 Respiratory 16 18 Rate Blood Pressure 159/75 184/99 189/99 (mmHg) O2 Sat by Pulse 98 100 100 Oximetry 10/27/16 10/27/16 10/27/16 19:36 20:00 23:19 Temperature 98.3 F 97.7 F Pulse Rate 60 62 Respiratory 16 16 20 Rate Blood Pressure 155/77 138/78 (mmHg) O2 Sat by Pulse 93 99 Oximetry 10/28/16 03:46 Temperature 97.6 F Pulse Rate 64 Respiratory 16 Rate Blood Pressure 174/88 (mmHg) O2 Sat by Pulse 98 Oximetry Oxygen Devices in Use Now: None Appearance: 76 yo female initially evaluated in bed she was A+O x3 in NAD. Eyes: No Scleral Icterus, PERRLA Ears/Nose/Mouth/Throat: NL Teeth, Lips, Gums, Mucous Membranes Moist Neck: NL Appearance and Movements; NL JVP Respiratory: Symmetrical Chest Expansion and Respiratory Effort, Clear to Auscultation Cardiovascular: NL Sounds; No Murmurs; No JVD, RRR, No Edema Abdominal: NL Sounds; No Tenderness; No Distention Extremities: No Edema, No Clubbing, Cyanosis Skin: No Rash or Ulcers, No Nodules or Sclerosis Neurological: Alert and Oriented x 3, NL Sensation, NL Gait, NL Muscle Strength and Tone, - - no facial droop, tongue is midline. no pronator drift, Lines/Tubes/Other Access: Clean, Dry and Intact Peripheral IV Nutrition: Taking PO's Result Diagrams: 10/28/16 10:31 10/28/16 10:31 Additional Lab and Data: Lab Results Laboratory Last Values WBC 9.3 10^3/ul (3.5-10.8) 10/26/16 07:29 RBC 3.10 10^6/ul (4.0-5.4) L 10/26/16 07:29 Hgb 9.7 g/dl (12.0-16.0) L 10/26/16 07:29 Hct 29 % (35-47) L 10/26/16 07:29 MCV 92 fL (80-97) 10/26/16 07:29 MCH 31 pg (27-31) 10/26/16 07:29 MCHC 34 g/dl (31-36) 10/26/16 07:29 RDW 18 % (10.5-15) H 10/26/16 07:29 Plt Count 208 10^3/ul (150-450) 10/26/16 07:29 MPV 9 um3 (7.4-10.4) 10/26/16 07:29 Neut % (Auto) 79.8 % (38-83) 10/26/16 07:29 Lymph % (Auto) 8.7 % (25-47) L 10/26/16 07:29 [place] % (Auto) 10.2 % (1-9) H 10/26/16 07:29 Eos % (Auto) 0.9 % (0-6) 10/26/16 07:29 Baso % (Auto) 0.4 % (0-2) 10/26/16 07:29 Absolute Neuts (auto) 7.4 10^3/ul (1.5-7.7) 10/26/16 07:29 Absolute Lymphs (auto) 0.8 10^3/ul (1.0-4.8) L 10/26/16 07:29 Absolute Monos (auto) 0.9 10^3/ul (0-0.8) H 10/26/16 07:29 Absolute Eos (auto) 0.1 10^3/ul (0-0.6) 10/26/16 07:29 Absolute Basos (auto) 0 10^3/ul (0-0.2) 10/26/16 07:29 Absolute Nucleated RBC 0.01 10^3/ul 10/26/16 07:29 Nucleated RBC % 0.1 10/26/16 07:29 INR (Anticoag Therapy) 1.44 (0.89-1.11) H 10/25/16 05:17 Sodium 137 mmol/L (133-145) 10/26/16 07:30 Potassium 3.9 mmol/L (3.5-5.0) 10/26/16 07:30 Chloride 106 mmol/L (101-111) 10/26/16 07:30 Carbon Dioxide 25 mmol/L (22-32) 10/26/16 07:30 Anion Gap 6 mmol/L (2-11) 10/26/16 07:30 BUN 18 mg/dL (6-24) 10/26/16 07:30 Creatinine 0.91 mg/dL (0.51-0.95) 10/26/16 07:30 Est GFR ( Amer) 76.9 (>60) 10/26/16 07:30 Est GFR (Non-Af Amer) 59.8 (>60) 10/26/16 07:30 BUN/Creatinine Ratio 19.8 (8-20) 10/26/16 07:30 Glucose 118 mg/dL (70-100) H 10/26/16 07:30 Lactic Acid 0.7 mmol/L (0.5-2.0) 10/23/16 10:27 Calcium 8.9 mg/dL (8.6-10.3) 10/26/16 07:30 Magnesium 1.8 mg/dL (1.9-2.7) L 10/26/16 07:30 Total Bilirubin 0.60 mg/dL (0.2-1.0) 10/23/16 10:27 AST 10 U/L (13-39) L 10/23/16 10:27 ALT < 3 U/L (7-52) L 10/23/16 10:27 Alkaline Phosphatase 52 U/L (34-104) 10/23/16 10:27 Troponin I 0.02 ng/mL (<0.04) 10/24/16 10:23 Total Protein 7.3 g/dL (6.4-8.9) 10/23/16 10:27 Albumin 4.2 g/dL (3.2-5.2) 10/23/16 10:27 Globulin 3.1 g/dL (2-4) 10/23/16 10:27 Albumin/Globulin Ratio 1.4 (1-3) 10/23/16 10:27 TSH 0.35 mcIU/mL (0.34-5.60) 10/23/16 10:27 Urine Color Yellow 10/23/16 11:05 Urine Appearance Clear 10/23/16 11:05 Urine pH 5.0 (5-9) 10/23/16 11:05 Ur Specific [place] 1.011 (1.010-1.030) 10/23/16 11:05 Urine Protein Negative (Negative) 10/23/16 11:05 Urine Ketones Trace (Negative) H 10/23/16 11:05 Urine Blood Negative (Negative) 10/23/16 11:05 Urine Nitrate Negative (Negative) 10/23/16 11:05 Urine Bilirubin Negative (Negative) 10/23/16 11:05 Urine Urobilinogen Negative (Negative) 10/23/16 11:05 Ur Leukocyte Esterase Trace (Negative) H 10/23/16 11:05 Urine WBC (Auto) Trace(0-5/hpf) (Absent) 10/23/16 11:05 Urine RBC (Auto) Absent (Absent) 10/23/16 11:05 Ur Squamous Epith Cells Present (Absent) H 10/23/16 11:05 Urine Bacteria Absent (Absent) 10/23/16 11:05 Hyaline Casts Present (Absent) H 10/23/16 11:05 Urine Glucose Negative (Negative) 10/23/16 11:05 Blood Type O Positive 10/23/16 16:49 Antibody Screen Negative 10/23/16 16:49 Crossmatch See Detail 10/23/16 16:49 Transfusion React Rpt 10/24/16 01:41 Donor Unit # [id number] 10/24/16 01:41 Post-Trans Blood Type O Positive 10/24/16 01:41 Post-Trans HAMLET Negative 10/24/16 01:41 Reaction Interpretation 10/24/16 01:41 Microbiology and Other Data: Microbiology 10/23/16 21:05 Transfusion Reaction Culture - Preliminary Blood Bag Culture Under Incubation Transfusion Reaction Gram Stain - Final 10/24/16 01:56 Transfusion Reaction Gram Stain - Final Blood Bag 10/23/16 13:45 Stool Occult Blood (NANCY) - Final Stool Assess/Plan/Problems-Billing Assessment: Ms. Phelan is a 76 yo female with hx of afib on coumadin, sick sinus syndrome s/p dual chamber pacer, CAD, TIA and hx of Parkinsons, hx of peptic ulcer disease who has had recurrent syncopal episodes and black stool. - Patient Problems (1) Syncope Comment: - Significant orthostatsis today after standing up from toliet and when transferred from chair. No arrythmias noted on tele during episode. 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 Will ask Neurology to consult. HH is stable. Thought initially her episodes were 2nd to GI bleed and there was also a concern for nonsustained VTACH which was noted on tele intially but no VTACH since tikosyn was d/c'd. - Pt underwent chemical nuclear stress test this morning which placed her at low risk. - No runs of VTACH noted since D/C'd Tikosyn 10/26. - Pacer interrogation shows run of VTACH in July and pt reports syncopal episode in July but doesnt remember the date. - TTE showing "normal wall motion and contractility LVEF 55-60%. Mild diastolic dysfunction, impaired relaxation. Right ventricular global systolic function is melissa;. Left atrium is mod-severely dilated, mild-mod MR, trace-mild tricuspid regurg. Compared to TTE 01/2012 EF is stable, MR is new, left atrial enlargement is new". - appreciate cards consult - tikosyn stopped. cardizem CD 120 mg strated 10/27 , hold off on further Digoxin unless her rate becomes uncontrolled. Hold coumadin for now and re-evaluate with cards in 2 weeks due to syncope. DC lisinopril. Hold lasix for now. Will ask cards to reevaluate syncope (2) GI (gastrointestinal bleed) Comment: - Resolved. - Upper GI bleed, positive stool occult blood. Hgb dropped to 6.1 received 2 units PRBCs. INR noted to be supratherapuetic on admission 4.03, was given Vitamin K. INR 1.44. Hgb 9.7 and stable. No further black stools. - EGD 10/24 - showing prepyloric gastric ulcer (per GI she could restart her coumadin but it is being held 2nd syncope) - pt encourage to f/u with colonoscopy as outpt as she has no hx of one; she is refusing at this time - continue PPI and carafate (3) A-fib Comment: - continue metoprolol to 50 mg BID (half home dose). Tikosyn DC 10/26. Continue Cardizem CD 120 mg daily, titrate up as needed - Hold coumadin. (4) Acute kidney failure Comment: - Resolved with IVFs (5) Diastolic heart failure Comment: - stable. - continue to hold Lasix (6) Parkinsons Comment: - continue Sinemet (7) Hypertension Comment: - Labile. continue home metoprolol, cardizem. Continue to monitor (8) DVT prophylaxis Comment: SCDs only in the setting of GI bleed. (9) Full code status Status and Disposition: inpatient with GI bleed, syncope. Home when medically stable. Continued stay for tele monitoring
--- NOTE | 2016-10-28 10:21 | RAD ---
Edited for charges. Indication: Dyspnea. Myocardial perfusion scan was performed utilizing 1 day protocol. Rest myocardial perfusion was performed after intravenous injection of 10.6 mCi of technetium 99m tetrofosmin. Pharmacological stress was applied and 25.83 mCi of technetium 99m tetrofosmin was injected for the stress portion of the study. The ventricle appears normal in size. There is no evidence of fixed or reversible perfusion defect noted. The polar images demonstrates some defect in the lateral wall which is felt to be artifactual as this is not confirmed on the tomographic slices. The ejection fraction is 87%. Evaluation of wall motion demonstrates no evidence of focal wall motion abnormality. IMPRESSION: No evidence of fixed or reversible perfusion defect is identified. Left ventricle is normal in size. Normal ejection fraction. ASSESSMENT: Low risk Based on imaging criteria from ACC/AHA 2002 Guideline Update for the Management of Patients With Chronic Stable Angina Table 23. Noninvasive Risk Stratification. MTDD
[2016-10-28] MEDS: Diltiazem CD CAP* 120 MG PO SCH (10:33)
[2016-10-28] MEDS: Metoprolol Tartrate TAB* 50 mg PO SCH ×2 (10:33→20:46)
[2016-10-28 11:13] LABS: Hematocrit 32 % (35-47); Hemoglobin 10.8 g/dl (12.0-16.0); Mean Corpuscular HGB Conc 34 g/dl (31-36); Mean Corpuscular Hemoglobin 32 pg (27-31); Mean Corpuscular Volume 94 fL (80-97); Mean Platelet Volume 10 um3 (7.4-10.4); Red Blood Count 3.42 10^6/ul (4.0-5.4); Red Cell Distribution Width 18 % (10.5-15); White Blood Count 9.4 10^3/ul (3.5-10.8)
[2016-10-28 11:25] LABS: BUN/Creatinine Ratio 20.4 (8-20); Calcium 9.2 mg/dL (8.6-10.3); EGFR Non-African American 58.3 (>60)
[2016-10-28] MEDS ORDERED: NS 0.9% 1000 ML* 1,000 ML IV SCH (14:30)
[2016-10-28] MEDS ORDERED: Potassium Chloride LIQUID* 20 MEQ PACKET PO ONE (15:00)
[2016-10-29] MEDS: Sucralfate TAB* 1 GM PO SCH ×4 (05:12→20:45)
[2016-10-29] MEDS: Omeprazole CAP* 20 MG PO SCH ×2 (09:58→15:44)
[2016-10-29] MEDS: Carbidopa/Levodop 25/100 MG TAB(*) PO SCH ×4 (09:59→20:46)
[2016-10-29] MEDS: Metoprolol Tartrate TAB* 50 mg PO SCH ×2 (10:00→20:45)
[2016-10-29] MEDS: Diltiazem CD CAP* 120 MG PO SCH (10:05)
[2016-10-29] MEDS ORDERED: Fludrocortisone Acetate TAB* 0.1 MG PO ONE (15:00)
--- NOTE | 2016-10-29 15:44 | PN ---
Subjective Date of Service: 10/29/16 Interval History: . patient reports she feels good today. No further episodes of syncope but she has been in bed. Denies dizziness. No CP or SOB. No fevers or chills denies dysuria. + orthostatic VS this morning, asymptomatic when standing Objective Active Medications: Acetaminophen (Tylenol Tab*) 650 mg PO Q6H PRN PRN Reason: PAIN Last Admin: 10/26/16 21:20 Dose: 650 mg Carbidopa/Levodopa (Sinemet 25/100 Tab(*)) 2 tab PO 0800,1600 PENDING SALE TO [facility] Last Admin: 10/29/16 15:43 Dose: 2 tab Carbidopa/Levodopa (Sinemet 25/100 Tab(*)) 1 tab PO 2100 PENDING SALE TO [facility] Last Admin: 10/28/16 20:46 Dose: 1 tab Carbidopa/Levodopa (Sinemet 25/100 Tab(*)) 1 tab PO 1200 PENDING SALE TO [facility] Last Admin: 10/29/16 13:27 Dose: 1 tab Fludrocortisone Acetate (Florinef Tab*) 0.1 mg PO DAILY PENDING SALE TO [facility] Metoprolol Tartrate (Lopressor Tab*) 50 mg PO BID PENDING SALE TO [facility] Last Admin: 10/29/16 10:00 Dose: 50 mg Omeprazole (Prilosec Cap*) 40 mg PO BID AC PENDING SALE TO [facility] Last Admin: 10/29/16 15:44 Dose: 40 mg Sucralfate (Carafate*) 1 gm PO 0600,1100,1600,2100 PENDING SALE TO [facility] Last Admin: 10/29/16 15:42 Dose: 1 gm Vital Signs 10/28/16 10/28/16 10/28/16 16:05 20:00 20:28 Temperature 97.3 F 98.1 F Pulse Rate 60 59 Respiratory 16 16 16 Rate Blood Pressure 184/88 170/77 (mmHg) O2 Sat by Pulse 99 96 Oximetry 10/29/16 10/29/16 10/29/16 00:06 03:38 04:00 Temperature 98.3 F 99.0 F 99.0 F Pulse Rate 59 61 61 Respiratory 16 16 16 Rate Blood Pressure 155/76 144/64 144/64 (mmHg) O2 Sat by Pulse 98 98 98 Oximetry 10/29/16 10/29/16 10/29/16 07:37 08:00 09:27 Temperature 98.3 F Pulse Rate 61 65 Respiratory 20 20 Rate Blood Pressure 169/72 133/61 (mmHg) O2 Sat by Pulse 99 100 Oximetry 10/29/16 10/29/16 10:28 11:10 Temperature 99.0 F Pulse Rate 70 64 Respiratory 22 Rate Blood Pressure 80/46 99/43 (mmHg) O2 Sat by Pulse 97 Oximetry Oxygen Devices in Use Now: None Appearance: 76 yo female laying in bed in NAD. A+O x3 Eyes: No Scleral Icterus, PERRLA Ears/Nose/Mouth/Throat: NL Teeth, Lips, Gums, Mucous Membranes Moist Neck: NL Appearance and Movements; NL JVP Respiratory: Symmetrical Chest Expansion and Respiratory Effort, Clear to Auscultation Cardiovascular: NL Sounds; No Murmurs; No JVD, RRR, No Edema Abdominal: NL Sounds; No Tenderness; No Distention Extremities: No Edema, No Clubbing, Cyanosis Skin: No Rash or Ulcers, No Nodules or Sclerosis Neurological: Alert and Oriented x 3, NL Sensation, NL Muscle Strength and Tone Lines/Tubes/Other Access: Clean, Dry and Intact Peripheral IV Nutrition: Taking PO's Result Diagrams: 10/28/16 10:31 10/28/16 10:31 Additional Lab and Data: Lab Results Laboratory Last Values WBC 9.3 10^3/ul (3.5-10.8) 10/26/16 07:29 RBC 3.10 10^6/ul (4.0-5.4) L 10/26/16 07:29 Hgb 9.7 g/dl (12.0-16.0) L 10/26/16 07:29 Hct 29 % (35-47) L 10/26/16 07:29 MCV 92 fL (80-97) 10/26/16 07:29 MCH 31 pg (27-31) 10/26/16 07:29 MCHC 34 g/dl (31-36) 10/26/16 07:29 RDW 18 % (10.5-15) H 10/26/16 07:29 Plt Count 208 10^3/ul (150-450) 10/26/16 07:29 MPV 9 um3 (7.4-10.4) 10/26/16 07:29 Neut % (Auto) 79.8 % (38-83) 10/26/16 07:29 Lymph % (Auto) 8.7 % (25-47) L 10/26/16 07:29 Lamar % (Auto) 10.2 % (1-9) H 10/26/16 07:29 Eos % (Auto) 0.9 % (0-6) 10/26/16 07:29 Baso % (Auto) 0.4 % (0-2) 10/26/16 07:29 Absolute Neuts (auto) 7.4 10^3/ul (1.5-7.7) 10/26/16 07:29 Absolute Lymphs (auto) 0.8 10^3/ul (1.0-4.8) L 10/26/16 07:29 Absolute Monos (auto) 0.9 10^3/ul (0-0.8) H 10/26/16 07:29 Absolute Eos (auto) 0.1 10^3/ul (0-0.6) 10/26/16 07:29 Absolute Basos (auto) 0 10^3/ul (0-0.2) 10/26/16 07:29 Absolute Nucleated RBC 0.01 10^3/ul 10/26/16 07:29 Nucleated RBC % 0.1 10/26/16 07:29 INR (Anticoag Therapy) 1.44 (0.89-1.11) H 10/25/16 05:17 Sodium 137 mmol/L (133-145) 10/26/16 07:30 Potassium 3.9 mmol/L (3.5-5.0) 10/26/16 07:30 Chloride 106 mmol/L (101-111) 10/26/16 07:30 Carbon Dioxide 25 mmol/L (22-32) 10/26/16 07:30 Anion Gap 6 mmol/L (2-11) 10/26/16 07:30 BUN 18 mg/dL (6-24) 10/26/16 07:30 Creatinine 0.91 mg/dL (0.51-0.95) 10/26/16 07:30 Est GFR ( Amer) 76.9 (>60) 10/26/16 07:30 Est GFR (Non-Af Amer) 59.8 (>60) 10/26/16 07:30 BUN/Creatinine Ratio 19.8 (8-20) 10/26/16 07:30 Glucose 118 mg/dL (70-100) H 10/26/16 07:30 Lactic Acid 0.7 mmol/L (0.5-2.0) 10/23/16 10:27 Calcium 8.9 mg/dL (8.6-10.3) 10/26/16 07:30 Magnesium 1.8 mg/dL (1.9-2.7) L 10/26/16 07:30 Total Bilirubin 0.60 mg/dL (0.2-1.0) 10/23/16 10:27 AST 10 U/L (13-39) L 10/23/16 10:27 ALT < 3 U/L (7-52) L 10/23/16 10:27 Alkaline Phosphatase 52 U/L (34-104) 10/23/16 10:27 Troponin I 0.02 ng/mL (<0.04) 10/24/16 10:23 Total Protein 7.3 g/dL (6.4-8.9) 10/23/16 10:27 Albumin 4.2 g/dL (3.2-5.2) 10/23/16 10:27 Globulin 3.1 g/dL (2-4) 10/23/16 10:27 Albumin/Globulin Ratio 1.4 (1-3) 10/23/16 10:27 TSH 0.35 mcIU/mL (0.34-5.60) 10/23/16 10:27 Urine Color Yellow 10/23/16 11:05 Urine Appearance Clear 10/23/16 11:05 Urine pH 5.0 (5-9) 10/23/16 11:05 Ur Specific Ackerman 1.011 (1.010-1.030) 10/23/16 11:05 Urine Protein Negative (Negative) 10/23/16 11:05 Urine Ketones Trace (Negative) H 10/23/16 11:05 Urine Blood Negative (Negative) 10/23/16 11:05 Urine Nitrate Negative (Negative) 10/23/16 11:05 Urine Bilirubin Negative (Negative) 10/23/16 11:05 Urine Urobilinogen Negative (Negative) 10/23/16 11:05 Ur Leukocyte Esterase Trace (Negative) H 10/23/16 11:05 Urine WBC (Auto) Trace(0-5/hpf) (Absent) 10/23/16 11:05 Urine RBC (Auto) Absent (Absent) 10/23/16 11:05 Ur Squamous Epith Cells Present (Absent) H 10/23/16 11:05 Urine Bacteria Absent (Absent) 10/23/16 11:05 Hyaline Casts Present (Absent) H 10/23/16 11:05 Urine Glucose Negative (Negative) 10/23/16 11:05 Blood Type O Positive 10/23/16 16:49 Antibody Screen Negative 10/23/16 16:49 Crossmatch See Detail 10/23/16 16:49 Transfusion React Rpt 10/24/16 01:41 Donor Unit # [id number] 10/24/16 01:41 Post-Trans Blood Type O Positive 10/24/16 01:41 Post-Trans HAMLET Negative 10/24/16 01:41 Reaction Interpretation 10/24/16 01:41 Microbiology and Other Data: Microbiology 10/23/16 21:05 Transfusion Reaction Culture - Preliminary Blood Bag Culture Under Incubation Transfusion Reaction Gram Stain - Final 10/24/16 01:56 Transfusion Reaction Gram Stain - Final Blood Bag 10/23/16 13:45 Stool Occult Blood (NANCY) - Final Stool Assess/Plan/Problems-Billing Assessment: Ms. Phelan is a 76 yo female with hx of afib on coumadin, sick sinus syndrome s/p dual chamber pacer, CAD, TIA and hx of Parkinsons, hx of peptic ulcer disease who has had recurrent syncopal episodes and black stool. 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 Thought initially her episodes were 2nd to GI bleed and there was also a concern for nonsustained VTACH which was noted on tele intially but no VTACH since tikosyn was d/c'd but has continued to have episodes. her daughter confirms this has been happening prior. No further arrythmias noted on tele. - Appreciate Neurology consult, sinemet decreased, agrees with florinef - Appreciate cards consult - tikosyn stopped. cardizem CD 120 mg started 10/27 at time Tikosyn was stopped, then discontinued 10/29 due to orthostatis and Florinef was started today. Was given one dose of dig 3, hold off on further Digoxin unless her rate becomes uncontrolled. Pt underwent chemical nuclear stress test which placed her at low risk. - No runs of VTACH noted since D/C'd Tikosyn 10/26. Pacer interrogation shows run of VTACH in July - TTE showing "normal wall motion and contractility LVEF 55-60%. Mild diastolic dysfunction, impaired relaxation. Right ventricular global systolic function is normal;. Left atrium is mod-severely dilated, mild-mod MR, trace-mild tricuspid regurg. Compared to TTE 01/2012 EF is stable, MR is new, left atrial enlargement is new". -Home lisinopril and lasix has been held since admission -At this time continue metoprolol. Obtain carotid US. Florinef started today. continue serial orthostatic VS. pt on bedrest with order she can sit on side of bed (2) GI (gastrointestinal bleed) Comment: - Resolved. - Upper GI bleed on coumadin, positive stool occult blood. Hgb dropped to 6.1 received 2 units PRBCs. INR noted to be supratherapuetic on admission 4.03, was given Vitamin K. INR 1.44. Hgb 9.7 and stable. No further black stools. - EGD 10/24 - showing prepyloric gastric ulcer (per GI she could restart her coumadin but it is being held 2nd syncope) - pt encourage to f/u with colonoscopy as outpt as she has no hx of one; she is refusing at this time - continue PPI and carafate (3) A-fib Comment: - continue metoprolol to 50 mg BID (half home dose). Tikosyn DC 10/26. D/C Cardizem CD due to orthostasis per cards. May use digoxin if rate control is needed - Hold coumadin for now and re-evaluate with cards in 2 weeks due to syncope. (4) Acute kidney failure Comment: - Resolved with IVFs (5) Diastolic heart failure Comment: - stable. - continue to hold Lasix (6) Parkinsons Comment: - continue Sinemet at decreased dose (7) Hypertension Comment: - Labile. continue home metoprolol. Will have to watch closely on Florinef. Continue to monitor (8) DVT prophylaxis Comment: start HSQ (9) Full code status Status and Disposition: inpatient with GI bleed, syncope with orthostasis. Home vs subacute. Continue tele monitoring
--- NOTE | 2016-10-29 17:35 | CONS ---
CONSULTATION REPORT: DATE OF CONSULT: 10/29/16 PATIENT OF: Dr. Marie. HISTORY OF PRESENT ILLNESS: This is a 76-year-old woman with a history of Parkinson's, atrial fibrillation, V-tach, hypertension, and GI bleed with anemia. She has had near syncopal episodes in the hospital, but now her hematocrit has been stable and she is not having active arrhythmias. She has had a near syncopal episode when she stood up, went limp and then was in the chair being confused and her blood pressure was 58/30, with recheck 110/70. She has also had dramatic orthostatic pressures. Of note, she has Parkinson's and is followed by Dr. Junior for that and is on Sinemet for that. She has had episodes quite frequently, possibly even daily of this lightheadedness and episodes of crumpling to the ground. PAST MEDICAL HISTORY: She has a history of TIA, hypertension. She has had a pacemaker and pacer was infected and was replaced in 2016. She has a history of atrial fibrillation and had been on Tikosyn. She has Parkinson's, hysterectomy, and appendectomy. MEDICATIONS: On admission include; 1. Warfarin 4 mg daily. 2. Furosemide 20 mg q.a.m. 3. Lisinopril 10 mg daily. 4. Metoprolol 100 mg b.i.d. 5. Carbidopa/levodopa 25/100 two 4 times a day with an extra half tab at 1600 hours for a total of 2.5 at that time. ALLERGIES: She is allergic to PENICILLIN. FAMILY HISTORY: Both parents had heart failure and were smokers. SOCIAL HISTORY: She never smoked, drunk or used drugs. REVIEW OF SYSTEMS: Negative in all 14 spheres other than the HPI. PHYSICAL EXAM: When I saw her late yesterday afternoon, temperature 98.1, pulse 60, blood pressure 170/77. She was alert and oriented with normal speech and comprehension. Cranial nerves II through XII were intact. Fundi showed sharp discs. Motor exam revealed normal tone. There was no cogwheeling. There was no bradykinesias. There was no resting tremor. Strength is 5/5. Chest: Clear. Cardiovascular: Regular rate and rhythm. Abdomen is soft with positive bowel sounds. DIAGNOSTIC STUDIES/LAB DATA: Labs include most recently hematocrit 32, platelets of 206, white count of 9.4. Most recent INR 1.44. BNP was normal. 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 I think that this may well be a major issue here. There is no specific treatment for that other than symptomatic treatment and she has been started on and has been recommended that she start on Florinef. The Sinemet can make orthostasis worse and since her Parkinson's seemed to be in very good control, we are backing down to 2 pills alternating with 1 pill for a total of 6 pills rather than 8-1/2 a day and then I will see her in the next couple of days' time to make sure that her Parkinson's did not become too severe. This may help her orthostasis to a mild extent. Thank you for sharing her case. CC: Dr. Junior; Dr. Damon* [id number]/[facility] #: [id number] [facility]
--- NOTE | 2016-10-29 19:01 | RAD ---
INDICATION: Syncope. COMPARISON: There are no prior studies available for comparison. TECHNIQUE: Multiple grayscale, color and Doppler tracings of the common, internal and external carotid and vertebral arteries were obtained. Stenosis estimations reflect velocity criteria that it been correlated to angiographic stenosis calculations based on the distal internal carotid diameter. RIGHT CAROTID: There is minimal hyperdense plaque within the right carotid bulb and proximal internal carotid artery. The peak systolic velocity in the proximal right internal carotid artery is 76 cm/s and the maximum end-diastolic velocity is 21 cm/s. The peak systolic velocity in the distal right common carotid artery is 85 cm/s and the maximum end-diastolic velocity is 23 cm/s. The internal to common carotid artery ratio is 0.9. This would be consistent with a less than 50% stenosis. LEFT CAROTID: There is interval plaque within the left carotid bulb and proximal internal carotid artery. The peak systolic velocity in the proximal left internal carotid artery is 80 cm/s and the maximum end-diastolic velocity is 29 cm/s. The peak systolic velocity in the distal left common carotid artery is 74 cm/s and the maximum end-diastolic velocity is 21 cm/s. The internal to common carotid artery ratio is 1.1. This would be consistent with a less than 50% stenosis. VERTEBRALS: There is antegrade flow in both vertebral arteries. IMPRESSION: THERE IS MINIMAL PLAQUE PRESENT ON BOTH SIDES WITHIN THE CAROTID BULBS AND PROXIMAL INTERNAL CAROTID ARTERIES. NO HEMODYNAMICALLY SIGNIFICANT STENOSIS IS PRESENT. CPT II Codes: 3100F
[2016-10-29] MEDS: Heparin VIAL(*) 5000 UNITS/ML VIAL (FIVE THOUSAND) SUBCUT SCH (20:48)
[2016-10-30] MEDS: Sucralfate TAB* 1 GM PO SCH ×4 (05:53→20:36)
[2016-10-30] MEDS: Heparin VIAL(*) 5000 UNITS/ML VIAL (FIVE THOUSAND) SUBCUT SCH ×3 (05:53→20:36)
[2016-10-30 06:37] LABS: Hematocrit 30 % (35-47); Hemoglobin 9.9 g/dl (12.0-16.0); Mean Corpuscular HGB Conc 33 g/dl (31-36); Mean Corpuscular Hemoglobin 31 pg (27-31); Mean Corpuscular Volume 93 fL (80-97); Mean Platelet Volume 9 um3 (7.4-10.4); Red Blood Count 3.19 10^6/ul (4.0-5.4); Red Cell Distribution Width 17 % (10.5-15); White Blood Count 7.7 10^3/ul (3.5-10.8)
[2016-10-30 06:51] LABS: BUN/Creatinine Ratio 25.3 (8-20); Calcium 8.9 mg/dL (8.6-10.3); EGFR African American 73.2 (>60); EGFR Non-African American 56.9 (>60); Potassium 3.9 mmol/L (3.5-5.0)
[2016-10-30] MEDS: Omeprazole CAP* 20 MG PO SCH ×2 (07:52→15:19)
[2016-10-30] MEDS: Carbidopa/Levodop 25/100 MG TAB(*) PO SCH ×4 (07:56→20:36)
[2016-10-30] MEDS: Fludrocortisone Acetate TAB* 0.1 MG PO SCH (07:56)
[2016-10-30] MEDS: Metoprolol Tartrate TAB* 50 mg PO SCH ×2 (07:56→20:36)
--- NOTE | 2016-10-30 12:23 | PN ---
Subjective Date of Service: 10/30/16 Interval History: Patient seen and examined at bedside. Pt states that she is feeling well. She reports that she has had issues with her "legs turning to jello for the past 10 years" when she first gets up. She denies fever, chills, shortness of breath, chest discomfort, lightheadedness, visual changes (seeing stars, lights, blurry vision or double vision), dizziness, N/V/D. Tele: A paced, rate 60's. Family History: Unchanged from Admission Social History: Unchanged from Admission Past Medical History: Unchanged from Admission Objective Active Medications: Acetaminophen (Tylenol Tab*) 650 mg PO Q6H PRN Reason: PAIN Carbidopa/Levodopa (Sinemet 25/100 Tab(*)) 1 tab PO 2100 EDY Carbidopa/Levodopa (Sinemet 25/100 Tab(*)) 1 tab PO 1200 EDY Carbidopa/Levodopa (Sinemet 25/100 Tab(*)) 1 tab PO 1600 EDY Carbidopa/Levodopa (Sinemet 25/100 Tab(*)) 2 tab PO 0800 EDY Fludrocortisone Acetate (Florinef Tab*) 0.1 mg PO DAILY EDY Heparin Sodium (Porcine) (Heparin Vial(*)) 5,000 units SUBCUT Q8HR EDY Metoprolol Tartrate (Lopressor Tab*) 50 mg PO BID EDY Omeprazole (Prilosec Cap*) 40 mg PO BID AC EDY Sucralfate (Carafate*) 1 gm PO 0600,1100,1600,2100 EDY Vital Signs 10/29/16 10/29/16 10/29/16 15:25 19:17 19:33 Temperature 99.0 F 98.0 F Pulse Rate 61 60 68 Respiratory 16 28 Rate Blood Pressure 136/57 111/57 81/46 (mmHg) O2 Sat by Pulse 96 96 Oximetry 10/29/16 10/29/16 10/30/16 20:00 23:02 03:38 Temperature 98.3 F 98.3 F Pulse Rate 60 59 Respiratory 20 16 16 Rate Blood Pressure 104/59 144/73 (mmHg) O2 Sat by Pulse 97 97 Oximetry 10/30/16 10/30/16 07:43 08:00 Temperature 98.0 F Pulse Rate 61 Respiratory 16 16 Rate Blood Pressure 190/86 (mmHg) O2 Sat by Pulse 100 Oximetry Oxygen Devices in Use Now: None Appearance: NAD, sitting up in a chair. Eyes: No Scleral Icterus, PERRLA Ears/Nose/Mouth/Throat: NL Teeth, Lips, Gums, Mucous Membranes Moist Neck: NL Appearance and Movements; NL JVP, Trachea Midline Respiratory: Symmetrical Chest Expansion and Respiratory Effort, Clear to Auscultation Cardiovascular: NL Sounds; No Murmurs; No JVD, RRR Abdominal: NL Sounds; No Tenderness; No Distention Extremities: No Edema Skin: No Rash or Ulcers Neurological: Alert and Oriented x 3, NL Muscle Strength and Tone Lines/Tubes/Other Access: Clean, Dry and Intact Peripheral IV - site benign Nutrition: Taking PO's Result Diagrams: 10/30/16 06:16 10/30/16 06:16 Additional Lab and Data: Microbiology and Other Data: Microbiology 10/23/16 21:05 Transfusion Reaction Culture - Preliminary Blood Bag Culture Under Incubation Transfusion Reaction Gram Stain - Final 10/24/16 01:56 Transfusion Reaction Gram Stain - Final Blood Bag 10/23/16 13:45 Stool Occult Blood (NANCY) - Final Stool Assess/Plan/Problems-Billing Assessment: Ms. Phelan is a 76 yo female with hx of afib on coumadin, sick sinus syndrome s/p dual chamber pacer, CAD, TIA and hx of Parkinsons, hx of peptic ulcer disease who has had recurrent syncopal episodes and black stool. 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 Thought initially her episodes were 2nd to GI bleed and there was also a concern for nonsustained VTACH which was noted on tele intially but no VTACH since tikosyn was d/c'd but has continued to have episodes. her daughter confirms this has been happening prior. No further arrythmias noted on tele. - Appreciate Neurology consult, sinemet decreased, agrees with florinef - Appreciate cards consult - tikosyn stopped. Cardizem CD 120 mg started 10/27 at time Tikosyn was stopped, then discontinued 10/29 due to orthostatis and Florinef was started 10/29. Was given one dose of dig 10/27, hold off on further Digoxin unless her rate becomes uncontrolled. - Pt underwent chemical nuclear stress test which placed her at low risk. - No runs of VTACH noted since D/C'd Tikosyn 10/26. Pacer interrogation shows run of VTACH in July - TTE showing "normal wall motion and contractility LVEF 55-60%. Mild diastolic dysfunction, impaired relaxation. Right ventricular global systolic function is normal;. Left atrium is mod-severely dilated, mild-mod MR, trace-mild tricuspid regurg. Compared to TTE 01/2012 EF is stable, MR is new, left atrial enlargement is new". -Home lisinopril and lasix has been held since admission -At this time continue metoprolol. Obtain carotid US. Florinef started yesterday. Continue serial orthostatic VS. Will check orthostatic VS later today. Pt has been up and ambulated to the bathroom and sitting in a chair (2) GI (gastrointestinal bleed) Code(s): K92.2 - GASTROINTESTINAL HEMORRHAGE, UNSPECIFIED SNOMED Code(s): 48882247 Comment: - Resolved. - Upper GI bleed on coumadin, positive stool occult blood. Hgb dropped to 6.1 received 2 units PRBCs. INR noted to be supratherapuetic on admission 4.03, was given Vitamin K. INR 1.44. Hgb 9.7 and stable. No further black stools. - EGD 10/24 - showing prepyloric gastric ulcer (per GI she could restart her coumadin but it is being held 2nd syncope) - Pt encourage to f/u with colonoscopy as outpt as she has no hx of one; she is refusing at this time - Continue PPI and carafate (3) A-fib Code(s): I48.91 - UNSPECIFIED ATRIAL FIBRILLATION SNOMED Code(s): 78864993 Comment: - Continue metoprolol to 50 mg BID (half home dose). May use digoxin if rate control is needed - Hold coumadin for now and re-evaluate with cards in 2 weeks due to syncope. (4) Acute kidney failure Comment: - Resolved with IVFs (5) Diastolic heart failure Code(s): I50.30 - UNSPECIFIED DIASTOLIC (CONGESTIVE) HEART FAILURE SNOMED Code (s): 533175765 Comment: - Stable. - Cntinue to hold Lasix (6) Hypertension Code(s): I10 - ESSENTIAL (PRIMARY) HYPERTENSION SNOMED Code(s): 72171697 Comment: - Labile. Continue metoprolol. - Will have to watch closely on Florinef. - Continue to monitor (7) Parkinsons Code(s): G20 - PARKINSON'S DISEASE SNOMED Code(s): 40885942 Comment: - Continue Sinemet at decreased dose (further decreased today) (8) DVT prophylaxis Code(s): DPI5675 - SNOMED Code(s): 404890288 Comment: - start HSQ (9) Full code status Code(s): Z78.9 - OTHER SPECIFIED HEALTH STATUS SNOMED Code(s): 299014711 Status and Disposition: Inpatient with GI bleed, syncope with orthostasis. Home vs subacute. Continue tele monitoring
--- NOTE | 2016-10-31 01:14 | PN ---
PROGRESS NOTE: DATE OF VISIT: DATE OF DICTATION: 10/30/16 - ROOM #[id number] PATIENT OF: Edda Marie NP HISTORY: She has had no further syncope or near syncope. No dizziness and no headaches. She has had no symptoms returning of her Parkinson disease despite decreasing the carbidopa/levodopa. MEDICINES: Her medicines include the carbidopa/levodopa 25/100 mg 6 pills spread out over q.i.d. schedule. She has just been started yesterday on Florinef 0.1 mg daily and her other medications are unchanged including her metoprolol 50 mg b.i.d. and omeprazole 40 mg b.i.d. PHYSICAL EXAMINATION: Vital Signs: Her temperature 98.0, pulse 73, respiratory rate 16, and blood pressure 190/86. Neurologic: She is alert and oriented with normal speech and comprehension. Cranial nerves II to XII are intact. She had no cogwheeling. No resting tremor. She had no clear bradykinesias. Chest: Clear. Cardiovascular: Regular rate and rhythm. Abdomen: Soft with positive bowel sounds. LABORATORY DATA: She had a carotid Doppler that showed minimal plaque. Her CBC was normal other than hematocrit of 30. BMP was normal other than glucose of 101. INR 1.44 on 10/25/16. ASSESSMENT: Liudmila has severe orthostatic hypotension and we decreased her levodopa/carbidopa for its possible contribution to her orthostasis. I do not think it is a primary cause. I spoke to the hospitalist, who is going to decrease the levodopa/carbidopa 2 in the morning and one 3 times a day after that and then I would make any further changes. She has been started on Florinef and please let me know if there are further issues I can address. Thank you for sharing her case. [id number]/[facility] #: [id number] BHUPENDRA
[2016-10-31 05:52] LABS: Hematocrit 27 % (35-47); Hemoglobin 9.2 g/dl (12.0-16.0)
[2016-10-31] MEDS: Heparin VIAL(*) 5000 UNITS/ML VIAL (FIVE THOUSAND) SUBCUT SCH ×3 (06:07→20:32)
[2016-10-31] MEDS: Sucralfate TAB* 1 GM PO SCH ×4 (06:07→20:31)
--- NOTE | 2016-10-31 07:07 | PN ---
PROGRESS NOTE: DATE OF VISIT: DATE OF DICTATION: 10/30/16 - ROOM #[id number] PATIENT OF: Edda Marie NP HISTORY: The patient has no further syncope or lightheadedness, but has been staying mostly in bed. There is no headache. Medications include carbidopa and levodopa for a total of six 25-100 a day. Other medicines have been unchanged. [id number]/[facility] #: [id number] [facility] HOSPITALDeshaun
[2016-10-31] MEDS: Omeprazole CAP* 20 MG PO SCH ×2 (07:25→17:17)
[2016-10-31] MEDS: Carbidopa/Levodop 25/100 MG TAB(*) PO SCH ×4 (07:26→20:30)
[2016-10-31] MEDS: Metoprolol Tartrate TAB* 50 mg PO SCH ×2 (07:27→20:30)
[2016-10-31] MEDS: Fludrocortisone Acetate TAB* 0.1 MG PO SCH (07:27)
--- NOTE | 2016-10-31 12:30 | PN ---
Subjective Date of Service: 10/31/16 Interval History: Patient seen and examined at bedside. Pt states that it has been a few days since she had "Jello legs when she got up". Denies fever, chills, shortness of breath, chest discomfort, lightheadedness, dizziness, N/V/D. Tele: A paced, rate 60's. Few PVCs noted. Family History: Unchanged from Admission Social History: Unchanged from Admission Past Medical History: Unchanged from Admission Objective Active Medications: Acetaminophen (Tylenol Tab*) 650 mg PO Q6H PRN Reason: PAIN Carbidopa/Levodopa (Sinemet 25/100 Tab(*)) 1 tab PO 2100 EDY Carbidopa/Levodopa (Sinemet 25/100 Tab(*)) 1 tab PO 1200 EDY Carbidopa/Levodopa (Sinemet 25/100 Tab(*)) 1 tab PO 1600 EDY Carbidopa/Levodopa (Sinemet 25/100 Tab(*)) 2 tab PO 0800 EDY Fludrocortisone Acetate (Florinef Tab*) 0.1 mg PO DAILY EDY Heparin Sodium (Porcine) (Heparin Vial(*)) 5,000 units SUBCUT Q8HR EDY Metoprolol Tartrate (Lopressor Tab*) 50 mg PO BID EDY Omeprazole (Prilosec Cap*) 40 mg PO BID AC EDY Sucralfate (Carafate*) 1 gm PO 0600,1100,1600,2100 EDY Vital Signs 10/30/16 10/30/16 10/30/16 14:31 14:38 14:39 Temperature 98.1 F 98.1 F Pulse Rate 59 64 71 Respiratory 16 16 Rate Blood Pressure 176/82 168/92 137/68 (mmHg) O2 Sat by Pulse 97 100 100 Oximetry 10/30/16 10/30/16 10/30/16 15:51 19:52 20:00 Temperature 98.0 F 98.1 F Pulse Rate 66 59 Respiratory 18 16 16 Rate Blood Pressure 170/78 109/58 (mmHg) O2 Sat by Pulse 98 97 Oximetry 10/30/16 10/31/16 10/31/16 23:21 03:53 07:14 Temperature 98.0 F 97.6 F Pulse Rate 62 62 Respiratory 20 20 20 Rate Blood Pressure 121/62 184/85 (mmHg) O2 Sat by Pulse 98 98 Oximetry 10/31/16 10/31/1610/31/17 07:25 07:36 11:08 Temperature 97.7 F 98.1 F Pulse Rate 62 61 60 Respiratory 18 20 22 Rate Blood Pressure 172/82 210/86 128/67 (mmHg) O2 Sat by Pulse 100 99 Oximetry Oxygen Devices in Use Now: None Appearance: NAD, sitting up in a chair Eyes: No Scleral Icterus, PERRLA Ears/Nose/Mouth/Throat: NL Teeth, Lips, Gums, Mucous Membranes Moist Neck: NL Appearance and Movements; NL JVP, Trachea Midline Respiratory: Symmetrical Chest Expansion and Respiratory Effort, Clear to Auscultation Cardiovascular: NL Sounds; No Murmurs; No JVD, RRR Abdominal: NL Sounds; No Tenderness; No Distention Extremities: No Edema Skin: No Rash or Ulcers Neurological: Alert and Oriented x 3, NL Muscle Strength and Tone Lines/Tubes/Other Access: Clean, Dry and Intact Peripheral IV - site benign Nutrition: Taking PO's Result Diagrams: 10/31/16 04:57 10/30/16 06:16 Additional Lab and Data: Microbiology and Other Data: Microbiology 10/23/16 21:05 Transfusion Reaction Culture - Preliminary Blood Bag Culture Under Incubation Transfusion Reaction Gram Stain - Final 10/24/16 01:56 Transfusion Reaction Gram Stain - Final Blood Bag 10/23/16 13:45 Stool Occult Blood (NANCY) - Final Stool Assess/Plan/Problems-Billing Assessment: Ms. Phelan is a 76 yo female with hx of afib on coumadin, sick sinus syndrome s/p dual chamber pacer, CAD, TIA and hx of Parkinsons, hx of peptic ulcer disease who has had recurrent syncopal episodes and black stool. 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 Thought initially her episodes were 2nd to GI bleed and there was also a concern for nonsustained VTACH which was noted on tele intially but no VTACH since tikosyn was d/c'd but has continued to have episodes. her daughter confirms this has been happening prior. No further arrythmias noted on tele. - Appreciate Neurology consult, sinemet decreased, agrees with medardo - Appreciate cards consult - tikosyn stopped. Cardizem CD 120 mg started 3/12 at time Tikosyn was stopped, then discontinued 10/29 due to orthostatis and Florinef was started 10/29. Was given one dose of dig 10/27, hold off on further Digoxin unless her rate becomes uncontrolled. - Pt underwent chemical nuclear stress test which placed her at low risk. - No runs of VTACH noted since D/C'd Tikosyn 10/26. Pacer interrogation shows run of VTACH in July - TTE showing "normal wall motion and contractility LVEF 55-60%. Mild diastolic dysfunction, impaired relaxation. Right ventricular global systolic function is normal;. Left atrium is mod-severely dilated, mild-mod MR, trace-mild tricuspid regurg. Compared to TTE 01/2012 EF is stable, MR is new, left atrial enlargement is new". -Home lisinopril and lasix has been held since admission -At this time continue metoprolol. Obtain carotid US. Florinef started yesterday. Continue serial orthostatic VS. Continues to have orthostatic VS that are positive. Pt has been up and ambulated to the bathroom and sitting in a chair (2) GI (gastrointestinal bleed) Code(s): K92.2 - GASTROINTESTINAL HEMORRHAGE, UNSPECIFIED SNOMED Code(s): 89901874 Comment: - Resolved. - Upper GI bleed on coumadin, positive stool occult blood. Hgb dropped to 6.1 received 2 units PRBCs. INR noted to be supratherapuetic on admission 4.03, was given Vitamin K. INR 1.44. Hgb 9.7 and stable. No further black stools. - EGD 10/24 - showing prepyloric gastric ulcer (per GI she could restart her coumadin but it is being held 2nd syncope) - Pt encourage to f/u with colonoscopy as outpt as she has no hx of one; she is refusing at this time - Continue PPI and carafate (3) A-fib Code(s): I48.91 - UNSPECIFIED ATRIAL FIBRILLATION SNOMED Code(s): 95964688 Comment: - Continue metoprolol to 50 mg BID (half home dose). May use digoxin if rate control is needed - Hold coumadin for now and re-evaluate with cards in 2 weeks due to syncope. (4) Acute kidney failure Comment: - Resolved with IVFs (5) Diastolic heart failure Code(s): I50.30 - UNSPECIFIED DIASTOLIC (CONGESTIVE) HEART FAILURE SNOMED Code (s): 041507464 Comment: - Stable. - Continue to hold Lasix (6) Hypertension Code(s): I10 - ESSENTIAL (PRIMARY) HYPERTENSION SNOMED Code(s): 72700941 Comment: - Continue metoprolol. - Will have to watch closely on Florinef. BP has been elevated, but feel risk of falling with syncope (orthostatic hypotension) and possible injury is greater than risk of CVA - Continue to monitor (7) Parkinsons Code(s): G20 - PARKINSON'S DISEASE SNOMED Code(s): 68517556 Comment: - Continue Sinemet at decreased dose (8) DVT prophylaxis Code(s): DRH3744 - SNOMED Code(s): 667522637 Comment: - HSQ (9) Full code status Code(s): Z78.9 - OTHER SPECIFIED HEALTH STATUS SNOMED Code(s): 951976055 Status and Disposition: Inpatient with GI bleed, syncope with orthostasis. Home vs subacute. Continue tele monitoring, plan for possible discharge to home in the morning.
[2016-11-01] MEDS: Heparin VIAL(*) 5000 UNITS/ML VIAL (FIVE THOUSAND) SUBCUT SCH (06:06)
[2016-11-01] MEDS: Sucralfate TAB* 1 GM PO SCH ×2 (06:06→10:54)
[2016-11-01] MEDS: Carbidopa/Levodop 25/100 MG TAB(*) PO SCH ×2 (08:40→10:54)
[2016-11-01] MEDS: Omeprazole CAP* 20 MG PO SCH (08:40)
[2016-11-01] MEDS: Fludrocortisone Acetate TAB* 0.1 MG PO SCH (08:40)
[2016-11-01] MEDS: Metoprolol Tartrate TAB* 50 mg PO SCH (08:40)
--- NOTE | 2016-11-01 11:54 | PN ---
Subjective Date of Service: 11/01/16 Interval History: Patient seen and examined at bedside. Pt denies fever, chills, headache, lightheadedness, dizziness, shortness of breath, chest discomfort, N/V/D. She reports being able to the bathroom without difficulty. Tele: Sinus rhythm, a paced, rate 60. Family History: Unchanged from Admission Social History: Unchanged from Admission Past Medical History: Unchanged from Admission Objective Active Medications: Acetaminophen (Tylenol Tab*) 650 mg PO Q6H PRN Reason: PAIN Carbidopa/Levodopa (Sinemet 25/100 Tab(*)) 1 tab PO 2100 EDY Carbidopa/Levodopa (Sinemet 25/100 Tab(*)) 1 tab PO 1200 EDY Carbidopa/Levodopa (Sinemet 25/100 Tab(*)) 1 tab PO 1600 EDY Carbidopa/Levodopa (Sinemet 25/100 Tab(*)) 2 tab PO 0800 EDY Fludrocortisone Acetate (Florinef Tab*) 0.1 mg PO DAILY EDY Heparin Sodium (Porcine) (Heparin Vial(*)) 5,000 units SUBCUT Q8HR EDY Metoprolol Tartrate (Lopressor Tab*) 50 mg PO BID EDY Omeprazole (Prilosec Cap*) 40 mg PO BID AC EDY Sucralfate (Carafate*) 1 gm PO 0600,1100,1600,2100 EDY Vital Signs 10/31/16 10/31/16 10/31/16 15:34 19:44 20:00 Temperature 98.2 F 97.9 F Pulse Rate 62 62 Respiratory 20 20 Rate Blood Pressure 141/66 124/66 (mmHg) O2 Sat by Pulse 100 96 Oximetry 11/01/16 11/01/16 11/01/16 00:04 04:08 07:40 Temperature 97.8 F 98.2 F 98.3 F Pulse Rate 62 61 60 Respiratory 24 20 20 Rate Blood Pressure 166/77 149/71 193/85 (mmHg) O2 Sat by Pulse 98 97 98 Oximetry 11/01/16 11/01/16 11/01/16 08:00 08:06 08:08 Temperature Pulse Rate 64 61 Respiratory 20 Rate Blood Pressure 226/101 201/94 (mmHg) O2 Sat by Pulse 98 99 Oximetry 11/01/16 08:10 Temperature Pulse Rate 62 Respiratory Rate Blood Pressure 156/82 (mmHg) O2 Sat by Pulse Oximetry Oxygen Devices in Use Now: None Appearance: NAD, laying in bed Eyes: No Scleral Icterus, PERRLA Ears/Nose/Mouth/Throat: NL Teeth, Lips, Gums, Mucous Membranes Moist Neck: NL Appearance and Movements; NL JVP, Trachea Midline Respiratory: Symmetrical Chest Expansion and Respiratory Effort, Clear to Auscultation Cardiovascular: NL Sounds; No Murmurs; No JVD, RRR Abdominal: NL Sounds; No Tenderness; No Distention Extremities: No Edema Skin: No Rash or Ulcers Neurological: Alert and Oriented x 3, NL Muscle Strength and Tone Lines/Tubes/Other Access: Clean, Dry and Intact Peripheral IV - site benign Nutrition: Taking PO's Result Diagrams: 10/31/16 04:57 10/30/16 06:16 Additional Lab and Data: Microbiology and Other Data: Microbiology 10/23/16 21:05 Transfusion Reaction Culture - Preliminary Blood Bag Culture Under Incubation Transfusion Reaction Gram Stain - Final 10/24/16 01:56 Transfusion Reaction Gram Stain - Final Blood Bag 10/23/16 13:45 Stool Occult Blood (NANCY) - Final Stool Assess/Plan/Problems-Billing Assessment: Ms. Phelan is a 76 yo female with hx of afib on coumadin, sick sinus syndrome s/p dual chamber pacer, CAD, TIA and hx of Parkinsons, hx of peptic ulcer disease who has had recurrent syncopal episodes and black stool. 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 Thought initially her episodes were 2nd to GI bleed and there was also a concern for nonsustained VTACH which was noted on tele intially but no VTACH since tikosyn was d/c'd but has continued to have episodes. Her daughter confirms this has been happening prior. No further arrythmias noted on tele. - Appreciate Neurology consult, sinemet decreased, agrees with florinef - Appreciate cards consult - Tikosyn, Cardizem CD stopped. Florinef was started 10/29. - No further Digoxin unless her rate becomes uncontrolled. - Pt underwent chemical nuclear stress test which placed her at low risk. - No runs of VTACH noted since D/C'd Tikosyn 3/11. Pacer interrogation shows run of VTACH in July - TTE showing "normal wall motion and contractility LVEF 55-60%. Mild diastolic dysfunction, impaired relaxation. Right ventricular global systolic function is normal;. Left atrium is mod-severely dilated, mild-mod MR, trace-mild tricuspid regurg. Compared to TTE 01/2012 EF is stable, MR is new, left atrial enlargement is new". -Home lisinopril and lasix has been held since admission -At this time continue metoprolol and Florinef. Obtain carotid US. -Orthostatic VS that are positive. Pt has been up and ambulated to the bathroom and sitting in a chair without further episodes (2) GI (gastrointestinal bleed) Code(s): K92.2 - GASTROINTESTINAL HEMORRHAGE, UNSPECIFIED SNOMED Code(s): 31298338 Comment: - Resolved. - Upper GI bleed on coumadin, positive stool occult blood. Hgb dropped to 6.1 received 2 units PRBCs. INR noted to be supratherapuetic on admission 4.03, was given Vitamin K. INR 1.44. Hgb 9.7 and stable. No further black stools. - EGD 10/24 - showing prepyloric gastric ulcer (per GI she could restart her coumadin but it is being held 2nd syncope) - Pt encourage to f/u with colonoscopy as outpt as she has no hx of one; she is refusing at this time - Continue PPI and carafate (3) A-fib Code(s): I48.91 - UNSPECIFIED ATRIAL FIBRILLATION SNOMED Code(s): 74975800 Comment: - Continue metoprolol to 50 mg BID (half home dose). May use digoxin if rate control is needed - Hold coumadin for now and re-evaluate with cards in 2 weeks due to syncope. (4) Acute kidney failure Comment: - Resolved with IVFs (5) Diastolic heart failure Code(s): I50.30 - UNSPECIFIED DIASTOLIC (CONGESTIVE) HEART FAILURE SNOMED Code (s): 680120746 Comment: - Stable. - Continue to hold Lasix (6) Hypertension Code(s): I10 - ESSENTIAL (PRIMARY) HYPERTENSION SNOMED Code(s): 90151639 Comment: - Continue metoprolol. - Will have to watch closely on Florinef. BP has been elevated, but feel risk of falling with syncope (orthostatic hypotension) and possible injury is greater than risk of CVA (7) Parkinsons Code(s): G20 - PARKINSON'S DISEASE SNOMED Code(s): 69931667 Comment: - Continue Sinemet at decreased dose (8) DVT prophylaxis Code(s): FAX1272 - SNOMED Code(s): 004072796 Comment: (9) Full code status Code(s): Z78.9 - OTHER SPECIFIED HEALTH STATUS SNOMED Code(s): 286366936 Status and Disposition: Inpatient with GI bleed, syncope with orthostasis. Discharge to home today.
[2016-11-01 13:57] VITALS: BP 143/72
--- NOTE | 2016-11-02 08:58 | DS ---
DISCHARGE SUMMARY: DATE OF : 36 ATTENDING PHYSICIAN: Scott Styles M.D.* (dictated by Andrea Tamayo NP). PRIMARY CARE PROVIDER: Dr. Douglas Damon. DATE OF ADMISSION: 10/23/16 DATE OF DISCHARGE: 11/01/16 PRIMARY DIAGNOSES: 1. Syncope. 2. Significant orthostatic hypotension. 3. GI bleed. 4. Acute kidney injury, resolved. SECONDARY DIAGNOSES: 1. Atrial fibrillation. 2. Diastolic heart failure. 3. Hypertension. 4. Parkinson's disease. CONSULTATIONS WHILE IN THE HOSPITAL: 1. Clayton Russell M.D. with Gastroenterology. 2. Gustavo Izquierdo M.D. with Cardiology. 3. Nils Basurto M.D. with Neurology. PROCEDURES WHILE IN THE HOSPITAL: Upper endoscopy on 10/24/[address] Venkata Bearden. Impression: Complete upper endoscopy into the distal duodenum with biopsies, prepyloric gastric ulcer, status post biopsy. STUDIES WHILE IN THE HOSPITAL: 1. Chest x-ray on 10/23/16. Radiologist's impression, hyperinflation, no active cardiopulmonary disease. 2. Transthoracic echocardiogram on 10/23/16. Crystal Finisher's impression: Mild concentric left ventricular hypertrophy is observed. Normal wall motion and contractility. LVEF 55% to 60%. Mild diastolic dysfunction, impaired relaxation pattern. The right ventricular global systolic function is normal. The left atrium is moderately to severely dilated. The mitral valve leaflets are mildly thickened with mild to moderate mitral regurgitation, closer to mild. There is a trace to mild tricuspid regurgitation. Compared with prior echo of 02/07/12, EF is stable. MR is new. Left atrial enlargement is new. 2. Chest x-ray on 10/24/16. Radiologist's impression: No active cardiopulmonary disease is noted. 3. Nuclear med myocardial multi resting cardiac stress test on 10/28/16 Impression: No evidence for fixed or reversible perfusion defect is identified. Left ventricle is normal in size. Normal ejection fraction. Assessment, low risk. 4. Carotid Doppler study on 10/29/16. Radiologist's impression: There is minimal plaque present on both sides within the carotid bulbs and proximal internal carotid arteries. No hemodynamically significant stenosis is present. DISCHARGE MEDICATIONS: [facility] Medications. 1. Florinef 0.1 mg oral daily. 2. Carafate 1 g oral daily at 6 a.m., 11 a.m., 4 p.m. and 9 p.m. 3. Omeprazole 20 mg oral twice daily before meals. Changed Home Medications 1. Sinemet 25/100 two tablets oral daily at 8 a.m. 2. Sinemet 25/100 mg tablet one tablet oral daily at noon, 4 p.m., and 9 p.m. 3. Metoprolol tartrate 50 mg oral twice daily. Discontinued Home Medications 1. Furosemide. 2. Warfarin. 3. Lisinopril. 4. Tikosyn. HISTORY OF PRESENT ILLNESS/HOSPITAL COURSE: Ms. Phelan is a 76-year-old female with past medical history significant for Parkinson's disease, atrial fibrillation, and hypertension who presented to the emergency room with concern after having multiple falls at home. Ms. Phelan had first noticed these spells starting at July and she has not had any episodes until last week. The patient describes the spells as when she moves from a seated position to standing, she is suddenly finding herself on the floor. The patient does not recall how she got on the floor, but then was able to get up and go about her day. The patient felt that the spells were increasing. She was preparing to see her primary care provider when she went from a seated position to standing. Her daughter observed that she took one step forward and then crumble to the ground. The patient did not lose consciousness, but did appear to be mildly confused, but was able to get herself up to the chair. The patient again went to get up to walk to the car to try to make it to her appointment, but after taking a couple of steps, she again fell to ground. Ultimately, it was decided to call EMS and have the patient brought to the emergency room. EMS found the patient alert and oriented. The patient again tried to get up and walk and again fell, but was supported by EMS providers who then transported her to the hospital. It is also to note that Ms. Phelan reports having a large amount of dark black liquid stools recently when these symptoms had reoccurred. This reminded her of when she was in her early 30s and had a gastric ulcer and required a blood transfusion. The patient denied any ibuprofen or aspirin use, but does take warfarin for her atrial fibrillation. The patient's INR is monitored closely by her primary care provider and the last one she had was therapeutic. While in the emergency room, Ms. Phelan was noted to be anemic with a hemoglobin of 8.1. Her last hemoglobin had been checked in April 2016 and at that time , it was 10, which was consistent with her previous results going back a couple of years. The patient was also noted to have an acute kidney injury with a creatinine of 2.17 and a BUN of 62. The remainder of her workup was negative. The hospitalists were asked to evaluate the patient for her falling episodes and suspected GI bleed. While in the hospital, the patient was seen in consultation by Dr. Russell, who felt that there was certainly evidence for bleeding, given the patient's history of black stools and a peptic ulcer disease, this could represent a recurrent peptic ulcer disease. It was discussed with the patient and the decision was made to proceed with an upper endoscopy. It is to note that the patient has not had a colonoscopy and adamantly does not want to have a colonoscopy completed. The patient underwent an upper endoscopy with Dr. Venkata Bearden on 10/24/16, showing a prepyloric gastric ulcer. The biopsy was obtained showing gastric antral type mucosa with mild chronic inflammation. There were no H. pylori like organisms identified. The patient was noted to have significant orthostatic hypotension and nonsustained V-tach. Dr. Izquierdo with Cardiology consulted on the patient. He was concerned with her increased risk for morbidity from Tikosyn, giving her labile blood pressures, falling, and nonsustained ventricular arrhythmias. He recommended discontinuing her Tikosyn. It was felt that the patient's spells could be consistent with an acute drop in blood pressure. It was felt that holding her anticoagulation for now was best in the setting of her GI bleed as well as her risk of falling and injury. He recommended stopping her lisinopril and following her blood pressures, as he felt that maybe contributing to her orthostatic lightheadedness. He also recommended decreasing her metoprolol to 50 mg twice daily and to maintain her potassium over 4 and her magnesium around 2. He also felt a pharmacologic stress test should be considered to be evaluated for ischemia. The patient underwent a chemical nuclear stress test showing low risk on 10/28/16. The patient was then seen in consultation by Dr. Basurto by Neurology due to her continued orthostatic hypotension with multiple contributing factors in terms of her neurological contributing factors and Parkinson's disease. It was felt that the patient's Sinemet may be contributing to her orthostatic hypotension. He recommended symptomatic treatment and starting Florinef. The patient's Sinemet was titrated down, as it was felt this may assist with the patient's orthostasis. The patient continued to be monitored on telemetry in a sinus rhythm that was atrial paced. Her heart rate had been stable. Her blood pressures tended to be hypertensive in the mornings and lower as the day progressed. Sometimes, her systolic blood pressure was as high as 220 and appeared to average about 180s to 190s in the morning prior to taking her antihypertensives and Florinef. As the day progressed, the patient's blood pressures decreased to 120s and 130s for the most part. The patient continued to have significant orthostatic hypotension as sometimes with as much as a 70-point drop from lying to standing. It was felt that the patient running on the hypertensive side intermittently in the morning have less of a risk of the patient having orthostatic hypotension and falling resulting in a head injury or other injuries. This was discussed with the automobile mechanic assistant on the day of discharge, who also agreed with this and suggested followup with the patient's automobile mechanic assistant as an outpatient. It is to note that during the patient's stay, she was started on omeprazole and Carafate for her gastric ulcer. Ms. Phelan has been doing well. She has been able to get up and ambulate without any falls, lightheadedness, or dizziness. Her H and H has remained stable. Her acute kidney injury on admission has resolved. Ms. Phelan is stable for discharge to home today. Vital signs are as follows: Temperature 97.4, heart rate 62, respiratory rate 16, O2 sat 100% on room air, blood pressure 110/63. DISCHARGE PLAN: Ms. Phelan will be discharged to home. Activity as tolerated. She has been encouraged to change positions from lying to standing slowly to allow for any changes in blood pressure before she rises. She is to be on a heart healthy diet. As far as the patient's orthostatic hypotension, she has been started on Florinef. I will continued to follow her blood pressures outpatient, as she may need further changes if she remains too elevated with her systolics throughout the day. Again, it was felt that the risk of having intermittent hypertension and her risk of stroke, the benefit outweighed the risk of her falling due to her severe orthostatic hypotension. As far as the patient's gastric ulcer, she should be continued on omeprazole 20 mg oral twice daily and Carafate 4 times daily. The patient has an appointment with her automobile mechanic assistant, Dr. Mittal on 11/06/16 at 9:45 a.m. She also has an appointment with her primary care provider, Dr. Damon on 11/06/16 at 12:50 p.m. The patient should be continued on her lower dose of Sinemet of 2 tabs in the morning followed by 1 tablet at noon, 4 p.m., and 9 p.m. The patient should follow with her neurologist, Dr. Junior. She has an appointment on 11/14/16 at 11 a.m. The patient has been instructed to return to the emergency room for chest pain, shortness of breath, or signs of stroke. Again, the patient has been taken off of her warfarin. This may be resumed when it is felt that she is no longer at significant risk of falling and should be discussed with her primary care provider and automobile mechanic assistant. The patient's Lasix, lisinopril and Tikosyn have also been held. The patient's metoprolol has been decreased from 100 mg oral twice daily to 50 mg oral twice daily. This is a summarized report of a complex medical history and hospital stay. For further details, please see the entire medical record. TIME SPENT: Time for discharge was 50 minutes, 25 minutes were spent face to face with the patient discussing discharge plans and instructions. CONDITION ON DISCHARGE: Stable. ANDREA BONILLA NP CC: Young Mittal M.D.; Azalea Junior M.D., Dr. Douglas Damon. * [id number]/CPS #: [id number] MTDD
== END 2016-11-01 14:05 | disposition home or self-care (01) | DRG 384 ==
LOC: ED 09:14 → MEDTELE 11:13 → OBSVTOIN 10-24 13:18
PROVIDERS: ADMIT Internal Medicine; ATTEND Internal Medicine
PROC: 30233N1 Transfusion of Nonautologous Red Blood Cells into Peripheral Vein, Percutaneous Approach (ICD-10-PCS; 2016-10-23)
PROC: 0DB98ZX Excision of Duodenum, Via Natural or Artificial Opening Endoscopic, Diagnostic (ICD-10-PCS; principal; 2016-10-24)
DX: K25.9 Gastric ulcer, unspecified as acute or chronic, without hemorrhage or perforation (principal); N17.9 Acute kidney failure, unspecified; I47.2 Ventricular tachycardia; I50.30 Unspecified diastolic (congestive) heart failure; I95.1 Orthostatic hypotension; I48.91 Unspecified atrial fibrillation; I11.0 Hypertensive heart disease with heart failure; G20 Parkinson's disease; D64.9 Anemia, unspecified; I25.10 Atherosclerotic heart disease of native coronary artery without angina pectoris; I08.1 Rheumatic disorders of both mitral and tricuspid valves; Z86.73 Personal history of transient ischemic attack (TIA), and cerebral infarction without residual deficits; Z91.81 History of falling; Z95.0 Presence of cardiac pacemaker; Z88.0 Allergy status to penicillin
CPT/HCPCS: 36415; 71010; 71020; 78452; 80048; 80053; 81003; 81015; 82272; 83605; 83735; 84443; 84484; 85014; 85018; 85025; 85610; 86078; 86850; 86900; 86901; 86922; 87077; 87086; 87186; 88305; 88342; 93005; 93017; 93306; 93880; A9270-GY; A9502; J0280; J1170; J1644; J2250; J2785; J3430; P9040

== ENCOUNTER 2017-03-12 08:15 | Inpatient (IN) | payer MEDICARE ==
[2017-03-12] MEDS ORDERED: NS 0.9% 1000 ML* 1,000 ML IV ONE (08:22)
[2017-03-12] MEDS ORDERED: Labetalol IV* 5 MG/ML 20 ML VIAL IV PUSH ONE (08:39)
--- NOTE | 2017-03-12 08:43 | RAD ---
HISTORY: Neurological changes, code dalal COMPARISONS: September 23, 2016 TECHNIQUE: Multiple contiguous axial CT scans were obtained of the head without intravenous contrast. FINDINGS: HEMORRHAGE/INFARCT: There is no hemorrhage or acute infarct. MASSES/SHIFT: There is no mass or shift. EXTRA-AXIAL SPACES: There are no extra-axial fluid collections. SULCI AND VENTRICLES: The sulci and ventricles are normal in size and position for the patient's stated age. CEREBRUM: There is right parietotemporal encephalomalacia, stable from the previous examination. There is hypoattenuation of the periventricular white matter. BRAINSTEM: There are no focal parenchymal abnormalities. CEREBELLUM: There are no focal parenchymal abnormalities. VESSELS: The vessels are grossly normal. PARANASAL SINUSES: The paranasal sinuses are clear. ORBITS: The orbits are unremarkable. BONES AND SOFT TISSUE: No bone or soft tissue abnormalities are noted. OTHER: None IMPRESSION: STABLE RIGHT PARIETOTEMPORAL ENCEPHALOMALACIA. NO ACUTE INTRACRANIAL PATHOLOGY. PRELIMINARY FINDINGS WERE DISCUSSED WITH DR. VERDUGO IN THE EMERGENCY DEPARTMENT AT APPROXIMATELY 8:39 AM ON MARCH 12, 2017.
[2017-03-12 08:51] LABS: Hematocrit 38 % (35-47); Hemoglobin 12.1 g/dl (12.0-16.0); Mean Corpuscular HGB Conc 32 g/dl (31-36); Mean Corpuscular Hemoglobin 30 pg (27-31); Mean Corpuscular Volume 92 fL (80-97); Mean Platelet Volume 8 um3 (7.4-10.4); Red Blood Count 4.12 10^6/ul (4.0-5.4); Red Cell Distribution Width 18 % (10.5-15); White Blood Count 11.4 10^3/ul (3.5-10.8)
[2017-03-12 09:08] LABS: ALT < 3 U/L (7-52); AST 11 U/L (13-39); Albumin 4.2 g/dL (3.2-5.2); Alkaline Phosphatase 69 U/L (34-104); Anion Gap 7 mmol/L (2-11); BUN/Creatinine Ratio 20.9 (8-20); Blood Urea Nitrogen 19 mg/dL (6-24); CO2 Carbon Dioxide 27 mmol/L (22-32); Calcium 9.5 mg/dL (8.6-10.3); Chloride 104 mmol/L (101-111); Cholesterol 185 mg/dL; EGFR African American 76.7 (>60); EGFR Non-African American 59.6 (>60); Glucose 102 mg/dL (70-100); LDL Cholesterol 106 mg/dL; Potassium 3.9 mmol/L (3.5-5.0); Sodium 138 mmol/L (133-145); Total Protein 7.2 g/dL (6.4-8.9); Triglycerides 98 mg/dL
[2017-03-12 09:11] LABS: Troponin I 0.01 ng/mL (<0.04)
[2017-03-12 09:17] LABS: Urine Bacteria Absent (Absent); Urine Bilirubin Negative (Negative); Urine Glucose Negative (Negative); Urine Nitrite Negative (Negative)
--- NOTE | 2017-03-12 09:54 | RAD ---
HISTORY: Neurological changes COMPARISONS: November 20, 2016 VIEWS:1: Single frontal portable view of the chest at 9:35 AM FINDINGS: LINES AND TUBES: There are right-sided pacemaker is noted CARDIOMEDIASTINAL SILHOUETTE: The cardiomediastinal silhouette is normal for portable technique. PLEURA: The costophrenic angles are sharp. No pleural abnormalities are noted. LUNG PARENCHYMA: The lungs are clear. ABDOMEN: The upper abdomen is clear. There is no subphrenic gas. BONES AND SOFT TISSUES: No bone or soft tissue abnormalities are noted. IMPRESSION: NO ACTIVE CARDIOPULMONARY DISEASE.
--- NOTE | 2017-03-12 10:58 | ED ---
Clarence Hernandes Benjamin, scribed for Aniceto Espinosa MD on 03/12/17 at 0848 . Altered Mental Status - HPI Summary HPI Summary: 77yo female BIBA for sudden onset right arm tingling and weakness, confusion, posterior SAEED, SOB, and loss of balance. Per EMS report from family, last seen normal was 0600. Pt also reports trouble swallowing and some loss of vision. Pt has hx of afib and was on blood thinner but recently been taken off as she was having GI bleeding. Cielo baez called at 0819. Upon further examination, pt was found to have weakness and confusion last night as well. - History Of Current Complaint Stated Complaint: STROKE-LIKE SYMPTOMS Time Seen by Provider: 03/12/17 08:22 Hx Obtained From: Patient, EMS Onset/Duration: Still Present, Suddenly Timing: Constant Severity Initially: Moderate Severity Currently: Moderate Character: Confusion Aggravating Factor(s): Unknown Alleviating Factor(s): Unknown Associated Signs And Symptoms: Positive: Headache - posterior, Weakness - right sided. Negative: Seizure, Recent Trauma, Remote Trauma - Allergies/Home Medications Allergies/Adverse Reactions: Allergies Allergy/AdvReac Type Severity Reaction Status Date / Time Penicillins Allergy Hives Verified 10/23/16 09:24 crystal light Allergy Airway Uncoded 10/23/16 09:24 Obstruction NO MRIs - PACEMAKER Allergy NO MRIs Uncoded 10/23/16 09:24 PACEMAKER Home Medications: Home Medications Amlodipine Besylate [Norvasc 2.5 mg tab] 2.5 mg PO DAILY 03/12/17 [History Confirmed 03/12/17] Carbidopa/Levodop 25/100 MG(*) [Sinemet 25/100 TAB(*)] 2 tab PO 1200 03/12/17 [ History Confirmed 03/12/17] Carbidopa/Levodop 25/100 MG(*) [Sinemet 25/100 TAB(*)] 2 tab PO 1600 03/12/17 [ History Confirmed 03/12/17] Carbidopa/Levodop 25/100 MG(*) [Sinemet 25/100 TAB(*)] 2 tab PO 2100 03/12/17 [ History Confirmed 03/12/17] Carbidopa/Levodop 25/100 MG(*) [Sinemet 25/100 TAB(*)] 2.5 tab PO 0800 03/12/17 [History Confirmed 03/12/17] Ferrous Sulfate TAB* 325 mg PO DAILY 03/12/17 [History Confirmed 03/12/17] PMH/Surg Hx/FS Hx/Imm Hx Endocrine/Hematology History: Reports: Hx Blood Transfusions - current visit, Hx Anemia - current Denies: Hx Diabetes Cardiovascular History: Reports: Hx Hypertension, Hx Pacemaker/ICD Denies: Hx Angina, Hx Coronary Artery Disease, Hx Hypercholesterolemia, Hx Myocardial Infarction Respiratory History: Denies: Hx Asthma, Hx Chronic Obstructive Pulmonary Disease (COPD), Other Respiratory Problems/Disorders GI History: Reports: Hx Gastroesophageal Reflux Disease - HISTORY OF, Hx Ulcer Musculoskeletal History: Reports: Hx Arthritis - HISTORY OF, Hx Rheumatoid Arthritis Denies: Hx Osteoporosis Sensory History: Reports: Hx Contacts or Glasses - GLASSES Denies: Hx Hearing Aid Opthamlomology History: Reports: Hx Contacts or Glasses - GLASSES Neurological History: Reports: Hx Migraine - HISTORY OF- NOW LESS FREQUENT, Other Neuro Impairments/Disorders - HISTORY OF PARKINSONS Denies: Hx Headaches - Cancer History Cancer Type, 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; UPPER LIP - Surgical History Surgery Procedure, Year, and Place: skin, hysterectomy- one ovary; appe; pacemaker; heart scraped after infection Hx Anesthesia Reactions: No - Immunization History Date of Tetanus Vaccine: UTD Date of Influenza Vaccine: 2015 Infectious Disease History: Denies: Hx Clostridium Difficile, Hx Hepatitis, Hx Human Immunodeficiency Virus (HIV), Hx of Known/Suspected MRSA, Hx Shingles, Hx Tuberculosis, Hx Known/ Suspected VRE, Hx Known/Suspected VRSA, History Other Infectious Disease, Traveled Outside the [place] in Last 30 Days - Family History Known Family History: Positive: Hypertension Negative: Cardiac Disease - Social History Occupation: Retired Lives: Alone Alcohol Use: Rare Hx Substance Use: No Substance Use Type: Reports: None Hx Tobacco Use: No Smoking Status (MU): Never Smoked Tobacco Review of Systems Constitutional: Negative Positive: Blurred Vision ENT: Negative Positive: Chest Pain Positive: Shortness Of Breath - mild Gastrointestinal: Negative Genitourinary: Negative Musculoskeletal: Negative Skin: Negative Neurological: Other - tingling in right arm; trouble with balance; confused Positive: Headache - posterior , Weakness - right arm Psychological: Normal All Other Systems Reviewed And Are Negative: Yes Physical Exam Triage Information Reviewed: Yes Vital Signs On Initial Exam: Initial Vitals BP 172/124 03/12/17 08:39 Vital Signs Reviewed: Yes Appearance: Positive: No Pain Distress, Well-Nourished, Ill-Appearing - mild Skin: Positive: Warm, Skin Color Reflects Adequate Perfusion, Dry Head/Face: Positive: Normal Head/Face Inspection Eyes: Positive: Other: - Conjuagated gaze to the right. left hemianopia. ENT: Positive: Normal ENT inspection Neck: Positive: Supple, Nontender Respiratory/Lung Sounds: Positive: Clear to Auscultation, Breath Sounds Present Cardiovascular: Positive: RRR Abdomen Description: Positive: Nontender, Soft Bowel Sounds: Positive: Present Musculoskeletal: Negative: Strength/ROM Intact - Mild weakness right arm Neurological: Positive: Sensory/Motor Intact, Alert, Oriented to Person Place, Time, CN Intact II-III Psychiatric: Positive: Affect/Mood Appropriate Diagnostics - Vital Signs Vital Signs Temp Pulse Resp BP Pulse Ox 03/12/17 10:30 116 20 143/85 93 03/12/17 10:00 26 142/92 03/12/17 09:30 23 167/114 03/12/17 09:08 100 03/12/17 09:06 113 18 179/101 100 03/12/17 09:00 112 20 175/116 100 03/12/17 08:55 98.4 F 106 22 172/124 100 03/12/17 08:40 50 15 96 03/12/17 08:39 172/124 - Laboratory Lab Results: Lab Results 03/12/17 03/12/17 03/12/17 Range/Units 08:46 08:46 08:46 WBC 11.4 H (3.5-10.8) 10^3/ul RBC 4.12 (4.0-5.4) 10^6/ul Hgb 12.1 (12.0-16.0) g/dl Hct 38 (35-47) % MCV 92 (80-97) fL MCH 30 (27-31) pg MCHC 32 (31-36) g/dl RDW 18 H (10.5-15) % Plt Count 279 (150-450) 10^3/ul MPV 8 (7.4-10.4) um3 Neut % (Auto) 83.3 H (38-83) % Lymph % (Auto) 9.9 L (25-47) % [place] % (Auto) 6.0 (1-9) % Eos % (Auto) 0.3 (0-6) % Baso % (Auto) 0.5 (0-2) % Absolute Neuts (auto) 9.5 H (1.5-7.7) 10^3/ul Absolute Lymphs (auto) 1.1 (1.0-4.8) 10^3/ul Absolute Monos (auto) 0.7 (0-0.8) 10^3/ul Absolute Eos (auto) 0 (0-0.6) 10^3/ul Absolute Basos (auto) 0.1 (0-0.2) 10^3/ul Absolute Nucleated RBC 0 10^3/ul Nucleated RBC % 0 INR (Anticoag Therapy) 0.94 (0.89-1.11) APTT 24.9 L (26.0-36.3) seconds Sodium 138 (133-145) mmol/L Potassium 3.9 (3.5-5.0) mmol/L Chloride 104 (101-111) mmol/L Carbon Dioxide 27 (22-32) mmol/L Anion Gap 7 (2-11) mmol/L BUN 19 (6-24) mg/dL Creatinine 0.91 (0.51-0.95) mg/dL Est GFR ( Amer) 76.7 (>60) Est GFR (Non-Af Amer) 59.6 (>60) BUN/Creatinine Ratio 20.9 H (8-20) Glucose 102 H (70-100) mg/dL Lactic Acid (0.5-2.0) mmol/L Calcium 9.5 (8.6-10.3) mg/dL Total Bilirubin 0.80 (0.2-1.0) mg/dL AST 11 L (13-39) U/L ALT < 3 L (7-52) U/L Alkaline Phosphatase 69 (34-104) U/L Troponin I 0.01 (<0.04) ng/mL Total Protein 7.2 (6.4-8.9) g/dL Albumin 4.2 (3.2-5.2) g/dL Globulin 3.0 (2-4) g/dL Albumin/Globulin Ratio 1.4 (1-3) Triglycerides 98 mg/dL Cholesterol 185 mg/dL LDL Cholesterol 106 mg/dL HDL Cholesterol 59.0 mg/dL Urine Color Urine Appearance Urine pH (5-9) Ur Specific [place] (1.010-1.030) Urine Protein (Negative) Urine Ketones (Negative) Urine Blood (Negative) Urine Nitrate (Negative) Urine Bilirubin (Negative) Urine Urobilinogen (Negative) Ur Leukocyte Esterase (Negative) Urine WBC (Auto) (Absent) Urine RBC (Auto) (Absent) Ur Squamous Epith Cells (Absent) Urine Bacteria (Absent) Urine Glucose (Negative) Blood Type Antibody Screen 03/12/17 03/12/17 03/12/17 Range/Units 08:46 08:46 08:54 WBC (3.5-10.8) 10^3/ul RBC (4.0-5.4) 10^6/ul Hgb (12.0-16.0) g/dl Hct (35-47) % MCV (80-97) fL MCH (27-31) pg MCHC (31-36) g/dl RDW (10.5-15) % Plt Count (150-450) 10^3/ul MPV (7.4-10.4) um3 Neut % (Auto) (38-83) % Lymph % (Auto) (25-47) % [place] % (Auto) (1-9) % Eos % (Auto) (0-6) % Baso % (Auto) (0-2) % Absolute Neuts (auto) (1.5-7.7) 10^3/ul Absolute Lymphs (auto) (1.0-4.8) 10^3/ul Absolute Monos (auto) (0-0.8) 10^3/ul Absolute Eos (auto) (0-0.6) 10^3/ul Absolute Basos (auto) (0-0.2) 10^3/ul Absolute Nucleated RBC 10^3/ul Nucleated RBC % INR (Anticoag Therapy) (0.89-1.11) APTT (26.0-36.3) seconds Sodium (133-145) mmol/L Potassium (3.5-5.0) mmol/L Chloride (101-111) mmol/L Carbon Dioxide (22-32) mmol/L Anion Gap (2-11) mmol/L BUN (6-24) mg/dL Creatinine (0.51-0.95) mg/dL Est GFR ( Amer) (>60) Est GFR (Non-Af Amer) (>60) BUN/Creatinine Ratio (8-20) Glucose (70-100) mg/dL Lactic Acid 0.8 (0.5-2.0) mmol/L Calcium (8.6-10.3) mg/dL Total Bilirubin (0.2-1.0) mg/dL AST (13-39) U/L ALT (7-52) U/L Alkaline Phosphatase (34-104) U/L Troponin I (<0.04) ng/mL Total Protein (6.4-8.9) g/dL Albumin (3.2-5.2) g/dL Globulin (2-4) g/dL Albumin/Globulin Ratio (1-3) Triglycerides mg/dL Cholesterol mg/dL LDL Cholesterol mg/dL HDL Cholesterol mg/dL Urine Color Straw Urine Appearance Cloudy Urine pH 7.0 (5-9) Ur Specific [place] 1.010 (1.010-1.030) Urine Protein Negative (Negative) Urine Ketones Negative (Negative) Urine Blood 1+ H (Negative) Urine Nitrate Negative (Negative) Urine Bilirubin Negative (Negative) Urine Urobilinogen Negative (Negative) Ur Leukocyte Esterase Negative (Negative) Urine WBC (Auto) Trace(0-5/hpf) (Absent) Urine RBC (Auto) 2+(6-10/hpf) H (Absent) Ur Squamous Epith Cells Present H (Absent) Urine Bacteria Absent (Absent) Urine Glucose Negative (Negative) Blood Type O Positive Antibody Screen Negative Result Diagrams: 03/12/17 08:46 03/12/17 08:46 Lab Statement: Any lab studies that have been ordered have been reviewed, and results considered in the medical decision making process. - Radiology CXR Xray Interpretation: No Acute Changes Radiology Interpretation Completed By: Radiologist - CT CT brain WO CT Interpretation: No Acute Changes - IMPRESSION: STABLE RIGHT PARIETOTEMPORAL ENCEPHALOMALACIA. NO ACUTE INTRACRANIAL PATHOLOGY. CT Interpretation Completed By: Radiologist - EKG 0844. Cardiac Rate: Tachycardia - 126bpm EKG Rhythm: Atrial Fibrillation Ectopy: PVCs EKG Interpretation: rapid response. PVCs. Altered Mental Statu Course/Dx - Course Course Of Treatment: Cielo baez called at 0819. Assessment/Plan: MS. Phelan presented by EMS with a new onset of some weakness and confusion that was originally reported to have occurred at 0730. A Code Lassiter was called and she was felt to have had a CVA but the timeing was unclear after further information from the family came to light. She was seen in the ED by Dr. Baker and will be admitted to the Hospitalist service. - Diagnoses Discharge Diagnoses: CVA (cerebral vascular accident) - Critical Care Time Critical Care Time: 30-74 min Discharge - Discharge Plan Condition: Stable Disposition: ADMITTED TO [facility] The documentation as recorded by the Clarence lr Benjamin accurately reflects the service I personally performed and the decisions made by me, Aniceto Espinosa MD.
[2017-03-12] MEDS ORDERED: Iodixanol* (CONTRAST) 320 MG/ML 100 ML SDV IV ONE (11:01)
[2017-03-12] MEDS ORDERED: Aspirin EC TAB* 325 MG PO ONE (11:13)
[2017-03-12] MEDS ORDERED: Labetalol IV* 5 MG/ML 20 ML VIAL IV PUSH PRN (11:14)
[2017-03-12] MEDS: Enoxaparin(*) 40 MG/0.4 ML SYR SUBCUT SCH (11:51)
--- NOTE | 2017-03-12 12:15 | RAD ---
Indication: Stroke. Contrast: 80 mL of Visipaque 320 CTA of the neck and head was performed after IV contrast administration. Coronal and sagittal reconstructed images were obtained. 3-D reconstructive images were also obtained. The aortic arch and origins of the great vessels are grossly unremarkable. Bilateral common carotid arteries are unremarkable. Right common carotid artery demonstrates minimal plaque at the carotid artery bifurcation. No stenosis is noted. Right internal carotid artery demonstrates no evidence of carotid artery dissection. Left common carotid artery demonstrates no intimal wall thickening. Minimal plaque is noted in the carotid bulb. The left internal carotid artery in the neck is grossly unremarkable. Both vertebral arteries are otherwise unremarkable. CTA of the head demonstrates the intracranial portions of the internal carotid arteries to demonstrate mild atherosclerosis. Normal bifurcation into the anterior and middle cerebral arteries is noted. No branch occlusion is identified. No aneurysmal dilatation is noted. The basilar artery and posterior cerebral arteries are grossly unremarkable. No aneurysmal dilatation or branch occlusion is noted. Degenerative changes of the cervical spine is present. Lung apices are unremarkable. IMPRESSION: Minimal atherosclerotic plaque is noted in the internal carotid arteries bilaterally with no evidence of significant stenosis. CTA of the neck and head demonstrates no evidence of carotid artery or vertebral artery dissection. No definite branch occlusion or aneurysmal dilatation is present.
[2017-03-12] MEDS: Sucralfate TAB* 1 GM PO SCH ×3 (12:30→22:50)
[2017-03-12] MEDS: Metoprolol Tartrate TAB* 50 mg PO SCH ×2 (12:45→20:48)
[2017-03-12] MEDS: Carbidopa/Levodop 25/100 MG TAB(*) PO SCH ×3 (12:45→20:48)
[2017-03-12 13:38] LABS: TSH (Thyroid Stimulating Horm) 0.61 mcIU/mL (0.34-5.60)
--- NOTE | 2017-03-12 15:01 | CONS ---
CC: Dr. Damon * NEUROLOGY CONSULTATION: DATE OF CONSULT: 03/12/17 REFERRING PHYSICIAN: Dr. Espinosa. PRIMARY CARE PROVIDER: Dr. Damon. CHIEF COMPLAINT: Left-sided weakness. HISTORY OF PRESENT ILLNESS: Liudmila Phelan is a 77-year-old right-handed woman, who woke up this morning, had tried to go to the bathroom and banged into the wall and ended up in the wrong room. Somehow ambulance was summoned and she was brought in. operations management trainee reported that she was last known well at 7 a.m., but over the course of multiple enquiries, the history is different. Specifically, she said that last night, she found herself on the floor in her living room and could not move her left side. She banged on the floor and her son came up apparently from an adjacent apartment or in the same home and helped her up. They tried to convince her to go to the hospital but she refused. She was able to get to bed and go to sleep. Her daughter came in a little later during my evaluation and confirmed the story. The patient therefore was last doing well at perhaps 7:00 or 8:00 last night. She apparently awoke with deficits as well and may have actually gone to bed with deficits, although that is little more unclear. She has a history of remote right middle cerebral artery infarction and brain CT scan at this admission revealed the old infarction, but no new areas of infarction or hemorrhage. She has a history of chronic atrial fibrillation and was on anticoagulation but it had to be stopped this past October because of gastrointestinal bleeding. She also has a history of Parkinson 's disease and labile hypertension, as well as orthostatic hypotension. As a result, she has not been on anticoagulation since last October at least. MEDICATIONS: Discharge medications at that point in time were: 1. Florinef 0.1 mg p.o. q. day. 2. Carafate 1 g 4 times per day. 3. Omeprazole 20 mg p.o. q. day. 4. Sinemet 25/100 two tablets at 8 a.m. and 1 tablet at noon, 4 p.m., and 9 p.m. 5. Metoprolol 50 mg b.i.d. according to the discharge note, although I am not entirely clear on that. ALLERGIES: She is allergic to PENICILLIN. PHYSICAL EXAM: She is reasonably well-nourished and well-hydrated. Her blood pressure was in excess of 180/120 when she came in, but at the time of the examination after some labetalol, it was 180/100. Temperature 98.4 temporally, heart rate is quite variable and in atrial fibrillation on the monitor, respiratory rate 20, oxygen saturation is 100% on 15 L mask. Heart is in an irregular rhythm and I do not hear any murmurs. Neck is supple. Oral mucosa is moist. Head is atraumatic. I do not hear any cervical bruits. Neurologically, she has pretty marked right gaze preference. I got her to track to the left of midline but not maintain it. Visual field testing is notable for left homonymous hemianopsia. Facial musculature is notable for mild flattening of the left nasolabial fold. Facial sensation to light touch is intact. Initially, when she first came in, she was a little sleepy and little dysarthric, but that cleared up pretty quickly within 20 to 30 minutes of admission and treatment of her blood pressure. Tongue protrudes in the midline. Motor Exam: Reveals good antigravity strength of all 4 limbs. There is some very mild left pronator drift. Finger taps are little slow in the left hand relative to the right. Sensation to light touch and pin is normal in all extremities for age. Reflexes are hypoactive but present, she has equivocal left plantar response and right plantar is flexor. She is little lethargic when she came in but cleared up and was alert subsequently. She was oriented to person, place, and time. She was able to follow commands and her language is fluent. Memory was not very good when she first came in but as the visit evolved, within 60 minutes or so, she was able to provide more coherent history including details of last evening. LABORATORY DATA: Includes a CBC with a white blood cell count of 11.4, otherwise fairly unremarkable CBC. Chemistry profile notable for glucose of 102 , is otherwise fairly unremarkable. Cholesterol this morning was 185, LDL 106. INR normal at 0.94, PTT 24.9. IMPRESSION AND PLAN: Impression is that of either hypertensive encephalopathy or hypertensive urgency with a right new middle cerebral artery distribution stroke. Her current CT just shows the old stroke. Recommend maintaining blood pressure under 180 systolic and under 105 diastolic. She probably should go on a statin as well. She needs an MRI of her brain to sort out whether or not she does in fact have a new infarction or just hypertensive encephalopathy. Also, recommended an EEG given her apparent episode of loss of consciousness last night. I do not recommend anticoagulation at this point in time but that will need to be visited over the course of her hospitalization. I have discussed my impression with the patient' s daughter and also with Dr. Arvizu, who is working on the case. [id number]/[facility] [place] #: [id number]
--- NOTE | 2017-03-12 15:18 | HP ---
CC: Dr. Damon; Dr. Junior; Dr. Mittal, Cardiology HISTORY AND PHYSICAL: DATE OF ADMISSION: 03/12/17 PRIMARY CARE PROVIDER: Dr. Damon. CHIEF COMPLAINT: Syncopal episode followed by left-sided weakness. HISTORY OF PRESENT ILLNESS: Ms. Phelan is a 77-year-old female with a past medical history of hypertension; Parkinson's; AFib, formerly on warfarin but stopped after a GI bleed; orthostatic hypotension; pacemaker placement who presents to the hospital after a syncopal episode and left-sided weakness. The patient states she was in her usual state of health, was feeling well yesterday in the evening. Her son-in-law was out mowing the lawn and she states around 5 p.m. she was walking across the living room to let her dog out. She subsequently woke up on the floor. She denied any pain, but noticed she was having left-sided weakness and her left side was just not working. She needed to use her right hand to move her left arm around. She feels that she was on the floor for maybe 30 minutes, was trying to get up, but was unable to. She cannot recall much leading up to the syncopal episode, but does not remember any preceding chest pain, shortness of breath, palpitations or lightheadedness. When she woke up, she said she was not confused. Denied any incontinence, pain anywhere or had not seemed to bite her tongue. The patient states she hit her med alert button, but it did not seem to work. She was eventually able to use her cane to make enough noise that her tenant downstairs came upstairs and got her son-in-law in from outside. They helped the patient into the chair. She states she started to feel better, so she got into bed. She slept throughout the night and then early this morning got up to go to the bathroom. She states that at this time, she felt diffusely weak and felt some mild palpitations like her AFib had come back. She was able to eventually get back into bed, then hit her med alert button again and this time EMS showed up and she was taken to the hospital. Of note, the patient was admitted in October 2016 for a GI bleed, at which point she was taken off of warfarin. She underwent an upper endoscopy by Dr. Bearden and was found to have a gastric ulcer and started on the PPI. Additionally, during that hospitalization, she was noted to have very labile blood pressures with significant orthostatic hypotension. This was felt to possibly be related to the Parkinson's disease. Dr. Basurto was consulted and at that point, the patient was started on Florinef and consultation with Cardiology as well as, so further antihypertensives were stopped and she was discharged on metoprolol and Florinef. She had previous been on Tikosyn as well, this was also stopped. PAST MEDICAL HISTORY: 1. Hypertension. 2. AFib, not on Coumadin due to GI bleed. 3. Parkinson's. 4. Pacemaker placement. 5. Orthostatic hypotension. PAST SURGICAL HISTORY: 1. Appendectomy. 2. Hysterectomy. HOME MEDICATIONS: 1. Amlodipine 2.5 mg by mouth daily. 2. Metoprolol 50 mg by mouth 2 times daily. 3. Omeprazole 20 mg by mouth 3 times daily. 4. Sinemet 25/100 two and a half tablets by mouth at 8 a.m., 2 tablets by mouth at noon, 2 tablets by mouth at 1600, 2 tablets by mouth at bedtime. 5. Carafate 1 g 4 times daily. 6. Florinef 0.1 mg by mouth daily. 7. Iron 325 mg by mouth daily. ALLERGIES: PENICILLIN. FAMILY HISTORY: Significant for mother with CHF, father with CHF, sister with lung cancer. SOCIAL HISTORY: The patient never smoked. Denies any alcohol or illicit drug use. REVIEW OF SYSTEMS: A 12-point review of systems negative except for that as noted in the HPI. PHYSICAL EXAMINATION GENERAL: The patient is a pleasant, elderly female, lying in bed, in no apparent distress. VITAL SIGNS: On admission, temperature 98.4, heart rate of 112, respiratory rate of 15, O2 saturation 96% on nonrebreather. Initial blood pressure 172/ 124. Last blood pressure 143/85. HEENT: Head: Normocephalic, atraumatic. Eyes: Pupils are equal, round, and reactive to light and accommodation. Anicteric sclerae. ENT: Dry mucous membranes. No cervical adenopathy. LUNGS: Clear to auscultation bilaterally. No wheezes, rales, or rhonchi. CARDIOVASCULAR: Tachycardic. Irregularly irregular. ABDOMEN: Soft, nontender, and nondistended. Bowel sounds positive. EXTREMITIES: No cyanosis, clubbing, or edema. NEUROLOGIC: The patient is alert and oriented x3. The patient has a right- sided gaze preference, is not able to track to her left. Reports absent sensation in the left face. The patient has 5/5 strength through bilateral upper extremities and right lower extremity. She has significant left-sided neglect, when she places her hand on her own face, she thinks it is someone else 's. She has some difficulty following commands with the left side, but the strength is intact. Left lower extremity strength is diminished. She has difficulty with any antigravity maneuvers and absent sensation of the left lower extremity as well. Did not assess her gait. DIAGNOSTIC STUDIES/LAB DATA: White blood cell count of 11.4, hemoglobin 12.1, hematocrit of 38, platelets of 279. INR of 0.94. Sodium of 138, potassium 3.9 , chloride of 104, carbon dioxide of 27, BUN of 19, creatinine of 0.91, and glucose of 102. Lactic acid of 0.8. AST of 11, ALT of less than 3. Troponin of 0.01. LDL of 106. UA negative for infection. CT of the brain shows a stable right parietotemporal encephalomalacia. Chest x-ray, personal review shows no active cardiopulmonary disease. The patient has a right-sided pacemaker. EKG, personal review shows AFib, rapid heart rate. I do not appreciate any acute ST elevations. ASSESSMENT AND PLAN: Syncopal episode with subsequent development of left- sided sensory deficits and hemineglect in a 77-year-old female with a past medical history of hypertension; AFib, not currently on anticoagulation due to gastrointestinal bleed, Parkinsonism, orthostatic hypotension and pacemaker placement. 1. Syncope. Left hemineglect and sensory changes. The patient has no clear evidence of stroke on CT scan; however, with her AFib and the fact that she is not on anticoagulation, puts her at a very high risk of embolic stroke, which is a possibility. We will attempt to get an MRI. The patient has a pacemaker, but it was placed recently within the past year or so, potentially could be compatible. If we are unable to do this, we can repeat a CT scan of the head in 2 to 3 days to see if there have been any changes. In the meantime, we will get a CTA of the head and neck. We will also get an echocardiogram, check a stat TSH. I will start the patient on atorvastatin 40 mg as well as aspirin for now. We may need to discuss potentially restarting anticoagulation as the patient has been on PPI therapy for about 4 months already. This could potentially have been a seizure as well. We will obtain an EEG. It seems unlikely that this is secondary to the patient's orthostatic hypotension alone, although she states this is much similar to syncopal episodes she has had in the past; the last one was in October when she was hospitalized; however, this does not account for her new neurological symptoms. We will try to maintain the patient's blood pressure under 185/105. We will hold her home amlodipine for now, but I will continue her on the metoprolol on half her home dose to try to maintain reasonable heart rates. We will continue the patient's home Florinef as well. 2. Atrial fibrillation. Metoprolol at half home dose as above. We will have to decide on the possibility of restarting anticoagulation if it becomes clear that this was a stroke. 3. Hypertension. The patient's blood pressures are known to be labile. They are often quite high in the morning and decreased over the course of the day with a significant orthostatic component. For now, I am going to hold the patient's home amlodipine. We will continue her on half of her home dose metoprolol and continue Florinef for now. I will write for p.r.n. labetalol if her blood pressure gets significantly elevated. 4. Parkinson's. Continue home Sinemet that she reports has recently been changed to 2.5 tablets by mouth at 8 a.m. and 2 tablets by mouth at noon, 1600 and 2100. 5. History of gastric ulcer. Continue home PPI and Carafate. 6. DVT prophylaxis: Lovenox subcu. 7. Code status: The patient is a full code. TIME SPENT: Total time spent on this admission 60 minutes with over half the time spent [id number] with the patient in counseling and coordinating care. [id number]/[facility] #: [id number] MTDD
--- NOTE | 2017-03-12 15:52 | ECHO ---
Patient: HUMBERTO CAMERON [facility] Rec#: [id number] : 1940 Date: 03/12/2017 Age: 77y Height: 144.8 cm / 57.0 in Weight: 58.5 kg / 128.9 lbs Sex: F BSA: 1.5 Room#: [facility] Admit Date#: 03/12/2017 Type: Inpatient Referring: JUAQUIN DAY MD Reading: Mirta Lee MD Nuclear Physics Professor: Jailyn Aburto RN RDCS CC: Nelson ROGERS,[facility] Transthoracic Echocardiogram Indication: CVA, A. fib BP: 143/85 HR: 115 Rhythm: A-Fib Findings History: TIA, HTN, pacemaker, A. fib, Parkinson's disease Technical Comments: The study was technically limited due to the patient's inability to lay in the left lateral decubitus position. The patient was restless throughout the exam and was unable to maintain any one position for long. Completed at 1440. Left Ventricle: The left ventricular chamber size is normal. Mild concentric left ventricular hypertrophy is observed. Global left ventricular wall motion and contractility are within normal limits. There is normal left ventricular systolic function. The estimated ejection fraction is 50-55%. The assessment of diastolic function is non-diagnostic. Left Atrium: The left atrium is moderate to severely dilated. Right Ventricle: The right ventricular chamber size and systolic function are within normal limits. A pacemaker wire is visualized in the right ventricle. Right Atrium: The right atrium is mildly dilated. A pacemaker wire is visualized in the right atrium. Aortic Valve: The aortic valve is trileaflet. The aortic valve leaflets are mildly thickened. There is no evidence of aortic regurgitation. There is no evidence of aortic stenosis. Mitral Valve: There is mitral annular calcification. The mitral valve leaflets are mildly thickened. There is mild mitral regurgitation. There is no evidence of mitral stenosis. Tricuspid Valve: The tricuspid valve leaflets are normal. There is trace to mild tricuspid regurgitation. There is evidence of mild pulmonary hypertension. There is no tricuspid stenosis. Pulmonic Valve: The pulmonic valve appears normal. There is a trace pulmonic regurgitation. There is no pulmonic stenosis. Pericardium: There is no significant pericardial effusion. A pericardial fat pad is visualized. Aorta: There is no dilatation of the ascending aorta. There is no dilatation of the aortic arch. There is no dilation of the aortic root. Pulmonary Artery: The main pulmonary artery appears normal. Venous: The inferior vena cava appears normal in size. There is less than 50% respiratory change in the inferior vena cava dimension. Conclusions The patient was in atrial fibrillation throughout the study. Mild concentric left ventricular hypertrophy is observed. Global left ventricular wall motion and contractility are within normal limits. The estimated ejection fraction is 50-55%. The right ventricular chamber size and systolic function are within normal limits. Pacer wires noted. The left atrium is moderate to severely dilated. The aortic valve leaflets are mildly thickened with normal function. There is mild mitral regurgitation. There is trace to mild tricuspid regurgitation. PA pressure 40 mm Hg. Compared with echo of 10/23/16, ventricular function is stable, the degree of MR previously mild to moderate, afib is new. Bubble study not performed as negative on RESHMA in 2007. Measurements Name Value Normal Range RVDdMajor (2D) 3.3 cm (2.2 - 4.4) RAd ISD 4CH 5.5 cm (3.4 - 4.9) RA (A4C)W 4.3 cm (2.9 - 4.6) IVSd (2D) 1.2 cm (0.6 - 1) LVPWd (2D) 1.2 cm (0.6 - 1) LVIDd (2D) 3.8 cm (3.6 - 5.4) Aortic Annulus 1.9 cm (1.4 - 2.6) Ao root diameter (2D) 3 cm (2.1 - 3.5) Ascending Ao 3.4 cm (2.1 - 3.4) Aortic arch 2.1 cm (1.8 - 3.4) LA dimension (AP) 2D 3.9 cm (2.3 - 3.8) LAd ISD 4CH 6.2 cm (2.9 - 5.3) LA ISD 4CH W 5.1 cm (2.5 - 4.5) Name Value Normal Range LA ESV SP 4CH (A/L) 102 ml - LA ESV SP 2CH (A/L) 77 ml - LA ESV BP (A/L) 90 ml - LA ESV BP (A/L) index 60.3 ml/m2 - LA ESV SP 4CH (MOD) 95 ml - LA ESV SP 2CH (MOD) 75 ml - Name Value Normal Range MV E-wave Vmax 0.98 m/sec - MV deceleration time 143 msec - LV septal e' Vmax 0.12 m/sec - LV lateral e' Vmax 0.1 m/sec - LV E:e' septal ratio 8.2 ratio - LV E:e' lateral ratio 9.8 ratio - Name Value Normal Range AV Vmax 1.3 m/sec - AV VTI 21.5 cm - AV peak gradient 4.5 mmHg - AV mean gradient 4.2 mmHg - LVOT Vmax 0.8 m/sec - LVOT VTI 13.1 cm - LVOT peak gradient 2.6 mmHg - LVOT mean gradient 1.5 mmHg - GEOVANNA Vmax 0.39 m/sec - Name Value Normal Range TR Vmax 2.5 m/sec - TR peak gradient 25 mmHg - RAP 15 mmHg - RVSP 40 mmHg - IVC diameter 2.1 cm - Name Value Normal Range PV Vmax 0.63 m/sec -
[2017-03-12] MEDS ORDERED: Carbidopa/Levodop 25/100 MG TAB(*) PO SCH ×2 (16:00→21:00)
[2017-03-12] MEDS: Omeprazole CAP* 20 MG PO SCH (17:11)
[2017-03-12] MEDS: Atorvastatin* 40 MG TAB PO SCH (17:11)
[2017-03-12] MEDS: Acetaminophen TAB* 325 MG PO PRN (21:37)
--- NOTE | 2017-03-13 01:44 | EEG ---
ELECTROENCEPHALOGRAPHY: DATE OF STUDY: 03/12/17 - ROOM #447 LOCATION: She is an inpatient on . REFERRING PROVIDER: Singh Arvizu MD. CLINICAL HISTORY: New onset left-sided weakness after a fall and collapse with loss of consciousness the night prior to this recording. The patient is in atrial fibrillation. MEDICATIONS: Include Sinemet, Prilosec, fludrocortisone, Lipitor, Ecotrin. EEG DESCRIPTION: This 16-channel EEG is remarkable for background rhythms at the onset of the tracing consisting of occipital and parietal slowing from the right hemisphere in the delta range. There is a low abundant alpha rhythm in the left occipital derivations approximating 9 cycles per second. Bifrontal beta rhythms are noted and are fairly symmetrical with some intermingled theta activity in the right frontotemporal region. The EKG lead indicates an irregular rhythm. The patient is awake and talking through portions of the tracing. At times, a right arm twitching is described, but there are no changes in background activity. The patient does seem to sleep with vertex sharp activity seen more from the left parasagittal region than the right. Rudimentary sleep spindles are also noted while the patient is described as snoring. INTERPRETATION: Abnormal EEG due to generalized slowing from the right hemisphere consistent with diffuse right hemispheric dysfunction, particularly in the posterior distributions. There are no epileptiform features to this recording. [id number]/[facility] #: [id number] MTDDeshaun
[2017-03-13] MEDS: Sucralfate TAB* 1 GM PO SCH ×4 (05:13→23:23)
[2017-03-13] MEDS: Metoprolol Tartrate TAB* 50 mg PO SCH ×2 (09:03→21:10)
[2017-03-13] MEDS: Carbidopa/Levodop 25/100 MG TAB(*) PO SCH ×4 (09:04→21:10)
[2017-03-13] MEDS: Ferrous Sulfate TAB* 325 MG PO SCH (09:04)
[2017-03-13] MEDS: Acetaminophen TAB* 325 MG PO PRN (09:05)
[2017-03-13] MEDS: Omeprazole CAP* 20 MG PO SCH ×2 (09:05→16:14)
[2017-03-13] MEDS: Aspirin EC Low Dose* 81 MG TAB.EC PO SCH (09:05)
[2017-03-13] MEDS: Fludrocortisone Acetate TAB* 0.1 MG PO SCH (09:05)
[2017-03-13] MEDS: Enoxaparin(*) 40 MG/0.4 ML SYR SUBCUT SCH (11:07)
--- NOTE | 2017-03-13 13:34 | PN ---
Subjective Date of Service: 03/13/17 Interval History: Pt continues to have left sided weakness, numbness and hemineglect. Telem shows aGrant ortiz Had an episode of CP at night, now resolved, troponins neg Objective Active Medications: Acetaminophen (Tylenol Tab*) 650 mg PO Q6H PRN PRN Reason: PAIN Last Admin: 03/13/17 09:05 Dose: 650 mg Aspirin (Aspirin Ec Low Dose*) 81 mg PO DAILY [facility] Last Admin: 03/13/17 09:05 Dose: 81 mg Atorvastatin Calcium (Lipitor*) 40 mg PO 1700 [facility] Last Admin: 03/12/17 17:11 Dose: 40 mg Carbidopa/Levodopa (Sinemet 25/100 Tab(*)) 2 tab PO 1200,1600,2100 [facility] Last Admin: 03/13/17 12:20 Dose: 2 tab Carbidopa/Levodopa (Sinemet 25/100 Tab(*)) 2.5 tab PO 0800 [facility] Last Admin: 03/13/17 09:04 Dose: 2.5 tab Enoxaparin Sodium (Lovenox(*)) 40 mg SUBCUT Q24H [facility] Last Admin: 03/13/17 11:07 Dose: 40 mg Ferrous Sulfate (Ferrous Sulfate Tab*) 325 mg PO DAILY [facility] Last Admin: 03/13/17 09:04 Dose: 325 mg Fludrocortisone Acetate (Florinef Tab*) 0.1 mg PO DAILY [facility] Last Admin: 03/13/17 09:05 Dose: 0.1 mg Labetalol HCl (Trandate Iv*) 10 mg IV PUSH Q6H PRN PRN Reason: SBP > 185 or DBP >105 Metoprolol Tartrate (Lopressor Tab*) 25 mg PO BID [facility] Last Admin: 03/13/17 09:03 Dose: 25 mg Omeprazole (Prilosec Cap*) 20 mg PO BID AC [facility] Last Admin: 03/13/17 09:05 Dose: 20 mg Sucralfate (Carafate*) 1 gm PO 0600,1100,1600,2100 [facility] Last Admin: 03/13/17 11:07 Dose: 1 gm Vital Signs 03/12/17 03/12/17 03/12/17 14:00 15:00 15:50 Temperature 97.8 F Pulse Rate 77 Respiratory 13 0 16 Rate Blood Pressure 104/68 (mmHg) O2 Sat by Pulse 97 Oximetry 03/12/17 03/12/17 03/12/17 17:00 19:00 20:00 Temperature 99.0 F Pulse Rate 85 Respiratory 12 14 16 Rate Blood Pressure 135/81 (mmHg) O2 Sat by Pulse 97 Oximetry 03/12/17 03/13/17 03/13/17 23:28 03:24 07:50 Temperature 98.2 F 98.1 F 98.7 F Pulse Rate 116 91 107 Respiratory 16 16 14 Rate Blood Pressure 147/69 168/97 149/105 (mmHg) O2 Sat by Pulse 98 98 98 Oximetry 03/13/17 11:19 Temperature 98.7 F Pulse Rate 88 Respiratory 20 Rate Blood Pressure 141/82 (mmHg) O2 Sat by Pulse 97 Oximetry Oxygen Devices in Use Now: None Appearance: 77 yo F in nAD, AAOx3 Eyes: No Scleral Icterus, PERRLA, - - Right gaze preference Ears/Nose/Mouth/Throat: NL Teeth, Lips, Gums, Mucous Membranes Moist Neck: NL Appearance and Movements; NL JVP, Trachea Midline Respiratory: Symmetrical Chest Expansion and Respiratory Effort, Clear to Auscultation Cardiovascular: NL Sounds; No Murmurs; No JVD, - - irregular Abdominal: NL Sounds; No Tenderness; No Distention, No Hepatosplenomegaly Lymphatic: No Cervical Adenopathy Extremities: No Edema, No Clubbing, Cyanosis Skin: No Rash or Ulcers, No Nodules or Sclerosis Neurological: - - L UE at 4+/5, L LE at 4/5, right gaze preference, left side hemineglect Result Diagrams: 03/12/17 08:46 03/12/17 08:46 Additional Lab and Data: Lab Results 03/12/17 03/12/17 03/12/17 Range/Units 08:46 08:46 08:46 WBC 11.4 H (3.5-10.8) 10^3/ul RBC 4.12 (4.0-5.4) 10^6/ul Hgb 12.1 (12.0-16.0) g/dl Hct 38 (35-47) % MCV 92 (80-97) fL MCH 30 (27-31) pg MCHC 32 (31-36) g/dl RDW 18 H (10.5-15) % Plt Count 279 (150-450) 10^3/ul MPV 8 (7.4-10.4) um3 Neut % (Auto) 83.3 H (38-83) % Lymph % (Auto) 9.9 L (25-47) % Winn % (Auto) 6.0 (1-9) % Eos % (Auto) 0.3 (0-6) % Baso % (Auto) 0.5 (0-2) % Absolute Neuts (auto) 9.5 H (1.5-7.7) 10^3/ul Absolute Lymphs (auto) 1.1 (1.0-4.8) 10^3/ul Absolute Monos (auto) 0.7 (0-0.8) 10^3/ul Absolute Eos (auto) 0 (0-0.6) 10^3/ul Absolute Basos (auto) 0.1 (0-0.2) 10^3/ul Absolute Nucleated RBC 0 10^3/ul Nucleated RBC % 0 INR (Anticoag Therapy) 0.94 (0.89-1.11) APTT 24.9 L (26.0-36.3) seconds Sodium 138 (133-145) mmol/L Potassium 3.9 (3.5-5.0) mmol/L Chloride 104 (101-111) mmol/L Carbon Dioxide 27 (22-32) mmol/L Anion Gap 7 (2-11) mmol/L BUN 19 (6-24) mg/dL Creatinine 0.91 (0.51-0.95) mg/dL Est GFR ( Amer) 76.7 (>60) Est GFR (Non-Af Amer) 59.6 (>60) BUN/Creatinine Ratio 20.9 H (8-20) Glucose 102 H (70-100) mg/dL Lactic Acid (0.5-2.0) mmol/L Calcium 9.5 (8.6-10.3) mg/dL Total Bilirubin 0.80 (0.2-1.0) mg/dL AST 11 L (13-39) U/L ALT < 3 L (7-52) U/L Alkaline Phosphatase 69 (34-104) U/L Troponin I 0.01 (<0.04) ng/mL Total Protein 7.2 (6.4-8.9) g/dL Albumin 4.2 (3.2-5.2) g/dL Globulin 3.0 (2-4) g/dL Albumin/Globulin Ratio 1.4 (1-3) Triglycerides 98 mg/dL Cholesterol 185 mg/dL LDL Cholesterol 106 mg/dL HDL Cholesterol 59.0 mg/dL Urine Color Urine Appearance Urine pH (5-9) Ur Specific [place] (1.010-1.030) Urine Protein (Negative) Urine Ketones (Negative) Urine Blood (Negative) Urine Nitrate (Negative) Urine Bilirubin (Negative) Urine Urobilinogen (Negative) Ur Leukocyte Esterase (Negative) Urine WBC (Auto) (Absent) Urine RBC (Auto) (Absent) Ur Squamous Epith Cells (Absent) Urine Bacteria (Absent) Urine Glucose (Negative) Blood Type Antibody Screen 03/12/17 03/12/17 03/12/17 Range/Units 08:46 08:46 08:54 WBC (3.5-10.8) 10^3/ul RBC (4.0-5.4) 10^6/ul Hgb (12.0-16.0) g/dl Hct (35-47) % MCV (80-97) fL MCH (27-31) pg MCHC (31-36) g/dl RDW (10.5-15) % Plt Count (150-450) 10^3/ul MPV (7.4-10.4) um3 Neut % (Auto) (38-83) % Lymph % (Auto) (25-47) % Winn % (Auto) (1-9) % Eos % (Auto) (0-6) % Baso % (Auto) (0-2) % Absolute Neuts (auto) (1.5-7.7) 10^3/ul Absolute Lymphs (auto) (1.0-4.8) 10^3/ul Absolute Monos (auto) (0-0.8) 10^3/ul Absolute Eos (auto) (0-0.6) 10^3/ul Absolute Basos (auto) (0-0.2) 10^3/ul Absolute Nucleated RBC 10^3/ul Nucleated RBC % INR (Anticoag Therapy) (0.89-1.11) APTT (26.0-36.3) seconds Sodium (133-145) mmol/L Potassium (3.5-5.0) mmol/L Chloride (101-111) mmol/L Carbon Dioxide (22-32) mmol/L Anion Gap (2-11) mmol/L BUN (6-24) mg/dL Creatinine (0.51-0.95) mg/dL Est GFR ( Amer) (>60) Est GFR (Non-Af Amer) (>60) BUN/Creatinine Ratio (8-20) Glucose (70-100) mg/dL Lactic Acid 0.8 (0.5-2.0) mmol/L Calcium (8.6-10.3) mg/dL Total Bilirubin (0.2-1.0) mg/dL AST (13-39) U/L ALT (7-52) U/L Alkaline Phosphatase (34-104) U/L Troponin I (<0.04) ng/mL Total Protein (6.4-8.9) g/dL Albumin (3.2-5.2) g/dL Globulin (2-4) g/dL Albumin/Globulin Ratio (1-3) Triglycerides mg/dL Cholesterol mg/dL LDL Cholesterol mg/dL HDL Cholesterol mg/dL Urine Color Straw Urine Appearance Cloudy Urine pH 7.0 (5-9) Ur Specific [place] 1.010 (1.010-1.030) Urine Protein Negative (Negative) Urine Ketones Negative (Negative) Urine Blood 1+ H (Negative) Urine Nitrate Negative (Negative) Urine Bilirubin Negative (Negative) Urine Urobilinogen Negative (Negative) Ur Leukocyte Esterase Negative (Negative) Urine WBC (Auto) Trace(0-5/hpf) (Absent) Urine RBC (Auto) 2+(6-10/hpf) H (Absent) Ur Squamous Epith Cells Present H (Absent) Urine Bacteria Absent (Absent) Urine Glucose Negative (Negative) Blood Type O Positive Antibody Screen Negative Assess/Plan/Problems-Billing Assessment: 77 yo F with h/o chronic A. fib (Coumadin held in 10/2016 after a UGI bleed from a prepyloric ulcer was noted), Parkinson's, orthostatic hypotension, pacer for SSS, HTN presents with sudden onset of left sided weakness and left hemineglect - Patient Problems (1) CVA (cerebral vascular accident) Comment: Sterted on ASA and statin appreciate Dr. Baker's consult MRI brain ordered to eval extent of CVA and plan when to start anticoagulation presumed cardioembolic (TEEm neg for PFO in 2007) CTA head and neck neg for significant stenosis Bedside swallow passed, cont PT/OT (2) Dyslipidemia Comment: LDL >100, lipitor started at admission (3) Parkinsons Comment: Continue Sinemet (4) Orthostatic hypotension Comment: cont Fludrocortisone (5) Hypertension Comment: Continue metoprolol. cont permissive HTN due to CVA (6) GI (gastrointestinal bleed) Comment: Resolved in 10/2016, due to prepyloric ulcer Continue PPI and carafate will d/w Dr. Lee re: safety of anticoagulation , although suspect pt will be able to resume Coumadin from GI standpoint, she may need to wait approx 7 days due to CVA to have anticoagulation restarted (7) DVT prophylaxis Comment: Lovenox (8) A-fib Comment: Cont home lopressor rate controlled Status and Disposition: Inpatient
--- NOTE | 2017-03-13 18:44 | CONS ---
NEUROLOGY CONSULTATION REPORT: DATE OF FOLLOWUP: 03/13/17 HOSPITALIST: Dr. Goff. CHIEF COMPLAINT: Stroke. INTERVAL HISTORY: Since yesterday, Ms. Phelan feels better. She feels that her vision is improved. She notes that she has some left-sided weakness, but she says concentrate on that side to use it properly. She denies headache. She has not had any faints. MEDICATIONS: Reviewed and she is on: 1. Aspirin enteric coated 81 mg p.o. q. day. 2. Sinemet 25/100 two p.o. t.i.d. 3. Lovenox 40 mg subcu q.24 hours. 4. Florinef 0.1 mg p.o. q. day. 5. Metoprolol 25 mg p.o. b.i.d. 6. Omeprazole 20 mg p.o. b.i.d. 7. Carafate 1 g p.o. four times a day. PHYSICAL EXAM: Temperature 98.7, blood pressure most recently 141/82, heart rate in the 90s and irregularly irregular. Neurologically, she has mild right gaze preference, but full eye movements. She still has a dense left homonymous hemianopsia. Facial musculature notable for mild flattening of the left nasolabial fold. Speech is clear. She has diminished sensation to light touch and pin in the left face and arm. She has some neglectable left side, but with concentration has antigravity strength of the left arm and grade 4 weakness of the left leg. She has normal strength in the right side. Language is fluent. DIAGNOSTIC STUDIES/LAB DATA: Includes an echocardiogram, which reveals atrial fibrillation and an enlarged left atrium but no other abnormalities of note. CT angiogram does not reveal any significant intracranial or extracranial large vessel stenosis. There are no new blood work results from today. IMPRESSION AND PLAN: Impression is that of multifocal right hemisphere stroke. Mechanism is most certainly atrial fibrillation. Discussed with Dr. Goff possibility of anticoagulating the patient. I would wait for about 5 days and then repeat her head CT to make sure she does not have a hemorrhagic transformation. Then, she should be started either on warfarin or one of the novel anticoagulants. I believe Pradaxa has a low incidence of gastrointestinal bleeding and a NOAC would probably be safer than a warfarin. Discussed that with Dr. Goff. [id number]/[facility] #: [id number] [facility] HOSPITALDeshaun
[2017-03-13] MEDS: Atorvastatin* 40 MG TAB PO SCH (19:35)
[2017-03-14 05:11] LABS: Hematocrit 37 % (35-47); Hemoglobin 11.7 g/dl (12.0-16.0); Mean Corpuscular HGB Conc 32 g/dl (31-36); Mean Corpuscular Hemoglobin 29 pg (27-31); Mean Corpuscular Volume 91 fL (80-97); Mean Platelet Volume 8 um3 (7.4-10.4); Red Blood Count 3.99 10^6/ul (4.0-5.4); Red Cell Distribution Width 18 % (10.5-15); White Blood Count 10.8 10^3/ul (3.5-10.8)
[2017-03-14 05:25] LABS: BUN/Creatinine Ratio 23.5 (8-20); Calcium 9.2 mg/dL (8.6-10.3); EGFR Non-African American 64.5 (>60); Magnesium 1.9 mg/dL (1.9-2.7); Potassium 3.7 mmol/L (3.5-5.0)
[2017-03-14] MEDS: Sucralfate TAB* 1 GM PO SCH ×4 (05:29→20:24)
[2017-03-14] MEDS: Omeprazole CAP* 20 MG PO SCH ×2 (07:37→17:51)
[2017-03-14] MEDS: Acetaminophen TAB* 325 MG PO PRN (07:37)
[2017-03-14] MEDS: Carbidopa/Levodop 25/100 MG TAB(*) PO SCH ×4 (07:37→20:23)
[2017-03-14] MEDS: Aspirin EC Low Dose* 81 MG TAB.EC PO SCH (09:45)
[2017-03-14] MEDS: Metoprolol Tartrate TAB* 50 mg PO SCH ×2 (09:45→20:23)
[2017-03-14] MEDS: Ferrous Sulfate TAB* 325 MG PO SCH (09:45)
[2017-03-14] MEDS: Fludrocortisone Acetate TAB* 0.1 MG PO SCH (09:45)
[2017-03-14] MEDS ORDERED: Metoprolol Tartrate TAB* 25 MG PO ONE (11:13)
[2017-03-14] MEDS: Enoxaparin(*) 40 MG/0.4 ML SYR SUBCUT SCH (11:25)
--- NOTE | 2017-03-14 14:17 | PN ---
Subjective Date of Service: 03/14/17 Interval History: Pt slid off bed last night hitting her R shoulder and R hip, now still "sore in right hip and shoulder". Noted a. fib with bursts of 4-5 beats of V.tach Objective Active Medications: Acetaminophen (Tylenol Tab*) 650 mg PO Q6H PRN PRN Reason: PAIN Last Admin: 03/14/17 07:37 Dose: 650 mg Aspirin (Aspirin Ec Low Dose*) 81 mg PO DAILY [facility] Last Admin: 03/14/17 09:45 Dose: 81 mg Atorvastatin Calcium (Lipitor*) 40 mg PO 1700 [facility] Last Admin: 03/13/17 19:35 Dose: 40 mg Carbidopa/Levodopa (Sinemet 25/100 Tab(*)) 2 tab PO 1200,1600,2100 [facility] Last Admin: 03/14/17 13:04 Dose: 2 tab Carbidopa/Levodopa (Sinemet 25/100 Tab(*)) 2.5 tab PO 0800 [facility] Last Admin: 03/14/17 07:37 Dose: 2.5 tab Enoxaparin Sodium (Lovenox(*)) 40 mg SUBCUT Q24H [facility] Last Admin: 03/14/17 11:25 Dose: 40 mg Ferrous Sulfate (Ferrous Sulfate Tab*) 325 mg PO DAILY [facility] Last Admin: 03/14/17 09:45 Dose: 325 mg Fludrocortisone Acetate (Florinef Tab*) 0.1 mg PO DAILY [facility] Last Admin: 03/14/17 09:45 Dose: 0.1 mg Labetalol HCl (Trandate Iv*) 10 mg IV PUSH Q6H PRN PRN Reason: SBP > 185 or DBP >105 Metoprolol Tartrate (Lopressor Tab*) 50 mg PO BID [facility] Omeprazole (Prilosec Cap*) 20 mg PO BID AC [facility] Last Admin: 03/14/17 07:37 Dose: 20 mg Sucralfate (Carafate*) 1 gm PO 0600,1100,1600,2100 [facility] Last Admin: 03/14/17 11:25 Dose: 1 gm Vital Signs 03/13/17 03/13/17 03/13/17 15:34 19:40 20:02 Temperature 98.5 F 98.5 F Pulse Rate 109 113 Respiratory 20 18 20 Rate Blood Pressure 125/89 130/84 (mmHg) O2 Sat by Pulse 98 96 83 Oximetry 03/13/17 03/13/17 03/14/17 20:15 23:38 01:19 Temperature 97.7 F 98.3 F Pulse Rate 125 84 Respiratory 16 16 Rate Blood Pressure 151/94 157/88 (mmHg) O2 Sat by Pulse 96 100 97 Oximetry 03/14/17 03/14/17 03/14/17 01:45 02:06 02:23 Temperature 97.8 F 97.7 F 98.0 F Pulse Rate 79 52 91 Respiratory 16 16 16 Rate Blood Pressure 140/92 136/79 138/76 (mmHg) O2 Sat by Pulse 98 96 95 Oximetry 03/14/17 03/14/17 03/14/17 03:30 06:57 07:22 Temperature 97.8 F 98.4 F Pulse Rate 97 99 Respiratory 16 20 16 Rate Blood Pressure 137/82 174/97 (mmHg) O2 Sat by Pulse 97 97 Oximetry 03/14/17 03/14/17 03/14/17 07:50 07:59 11:17 Temperature 98.5 F 97.6 F Pulse Rate 111 88 Respiratory 22 17 Rate Blood Pressure 175/113 113/60 (mmHg) O2 Sat by Pulse 97 98 98 Oximetry 03/14/17 03/14/17 11:50 14:08 Temperature 98.1 F 97.8 F Pulse Rate 88 77 Respiratory 16 Rate Blood Pressure 114/65 (mmHg) O2 Sat by Pulse 98 97 Oximetry Oxygen Devices in Use Now: None Appearance: 77 yo F in nAD, aAOx3 Eyes: No Scleral Icterus, PERRLA Ears/Nose/Mouth/Throat: NL Teeth, Lips, Gums, Mucous Membranes Moist Neck: NL Appearance and Movements; NL JVP, Trachea Midline Respiratory: Symmetrical Chest Expansion and Respiratory Effort, Clear to Auscultation Cardiovascular: - - irregular Abdominal: NL Sounds; No Tenderness; No Distention, No Hepatosplenomegaly Lymphatic: No Cervical Adenopathy Extremities: No Edema, No Clubbing, Cyanosis Skin: No Nodules or Sclerosis Neurological: Alert and Oriented x 3, - - left hemineglect improving, still R lateral gaze preference Result Diagrams: 03/14/17 04:42 03/14/17 04:42 Additional Lab and Data: Lab Results 03/12/17 03/12/17 03/12/17 Range/Units 08:46 08:46 08:46 WBC 11.4 H (3.5-10.8) 10^3/ul RBC 4.12 (4.0-5.4) 10^6/ul Hgb 12.1 (12.0-16.0) g/dl Hct 38 (35-47) % MCV 92 (80-97) fL MCH 30 (27-31) pg MCHC 32 (31-36) g/dl RDW 18 H (10.5-15) % Plt Count 279 (150-450) 10^3/ul MPV 8 (7.4-10.4) um3 Neut % (Auto) 83.3 H (38-83) % Lymph % (Auto) 9.9 L (25-47) % Sutter % (Auto) 6.0 (1-9) % Eos % (Auto) 0.3 (0-6) % Baso % (Auto) 0.5 (0-2) % Absolute Neuts (auto) 9.5 H (1.5-7.7) 10^3/ul Absolute Lymphs (auto) 1.1 (1.0-4.8) 10^3/ul Absolute Monos (auto) 0.7 (0-0.8) 10^3/ul Absolute Eos (auto) 0 (0-0.6) 10^3/ul Absolute Basos (auto) 0.1 (0-0.2) 10^3/ul Absolute Nucleated RBC 0 10^3/ul Nucleated RBC % 0 INR (Anticoag Therapy) 0.94 (0.89-1.11) APTT 24.9 L (26.0-36.3) seconds Sodium 138 (133-145) mmol/L Potassium 3.9 (3.5-5.0) mmol/L Chloride 104 (101-111) mmol/L Carbon Dioxide 27 (22-32) mmol/L Anion Gap 7 (2-11) mmol/L BUN 19 (6-24) mg/dL Creatinine 0.91 (0.51-0.95) mg/dL Est GFR ( Amer) 76.7 (>60) Est GFR (Non-Af Amer) 59.6 (>60) BUN/Creatinine Ratio 20.9 H (8-20) Glucose 102 H (70-100) mg/dL Lactic Acid (0.5-2.0) mmol/L Calcium 9.5 (8.6-10.3) mg/dL Total Bilirubin 0.80 (0.2-1.0) mg/dL AST 11 L (13-39) U/L ALT < 3 L (7-52) U/L Alkaline Phosphatase 69 (34-104) U/L Troponin I 0.01 (<0.04) ng/mL Total Protein 7.2 (6.4-8.9) g/dL Albumin 4.2 (3.2-5.2) g/dL Globulin 3.0 (2-4) g/dL Albumin/Globulin Ratio 1.4 (1-3) Triglycerides 98 mg/dL Cholesterol 185 mg/dL LDL Cholesterol 106 mg/dL HDL Cholesterol 59.0 mg/dL Urine Color Urine Appearance Urine pH (5-9) Ur Specific [place] (1.010-1.030) Urine Protein (Negative) Urine Ketones (Negative) Urine Blood (Negative) Urine Nitrate (Negative) Urine Bilirubin (Negative) Urine Urobilinogen (Negative) Ur Leukocyte Esterase (Negative) Urine WBC (Auto) (Absent) Urine RBC (Auto) (Absent) Ur Squamous Epith Cells (Absent) Urine Bacteria (Absent) Urine Glucose (Negative) Blood Type Antibody Screen 03/12/17 03/12/17 03/12/17 Range/Units 08:46 08:46 08:54 WBC (3.5-10.8) 10^3/ul RBC (4.0-5.4) 10^6/ul Hgb (12.0-16.0) g/dl Hct (35-47) % MCV (80-97) fL MCH (27-31) pg MCHC (31-36) g/dl RDW (10.5-15) % Plt Count (150-450) 10^3/ul MPV (7.4-10.4) um3 Neut % (Auto) (38-83) % Lymph % (Auto) (25-47) % Sutter % (Auto) (1-9) % Eos % (Auto) (0-6) % Baso % (Auto) (0-2) % Absolute Neuts (auto) (1.5-7.7) 10^3/ul Absolute Lymphs (auto) (1.0-4.8) 10^3/ul Absolute Monos (auto) (0-0.8) 10^3/ul Absolute Eos (auto) (0-0.6) 10^3/ul Absolute Basos (auto) (0-0.2) 10^3/ul Absolute Nucleated RBC 10^3/ul Nucleated RBC % INR (Anticoag Therapy) (0.89-1.11) APTT (26.0-36.3) seconds Sodium (133-145) mmol/L Potassium (3.5-5.0) mmol/L Chloride (101-111) mmol/L Carbon Dioxide (22-32) mmol/L Anion Gap (2-11) mmol/L BUN (6-24) mg/dL Creatinine (0.51-0.95) mg/dL Est GFR ( Amer) (>60) Est GFR (Non-Af Amer) (>60) BUN/Creatinine Ratio (8-20) Glucose (70-100) mg/dL Lactic Acid 0.8 (0.5-2.0) mmol/L Calcium (8.6-10.3) mg/dL Total Bilirubin (0.2-1.0) mg/dL AST (13-39) U/L ALT (7-52) U/L Alkaline Phosphatase (34-104) U/L Troponin I (<0.04) ng/mL Total Protein (6.4-8.9) g/dL Albumin (3.2-5.2) g/dL Globulin (2-4) g/dL Albumin/Globulin Ratio (1-3) Triglycerides mg/dL Cholesterol mg/dL LDL Cholesterol mg/dL HDL Cholesterol mg/dL Urine Color Straw Urine Appearance Cloudy Urine pH 7.0 (5-9) Ur Specific [place] 1.010 (1.010-1.030) Urine Protein Negative (Negative) Urine Ketones Negative (Negative) Urine Blood 1+ H (Negative) Urine Nitrate Negative (Negative) Urine Bilirubin Negative (Negative) Urine Urobilinogen Negative (Negative) Ur Leukocyte Esterase Negative (Negative) Urine WBC (Auto) Trace(0-5/hpf) (Absent) Urine RBC (Auto) 2+(6-10/hpf) H (Absent) Ur Squamous Epith Cells Present H (Absent) Urine Bacteria Absent (Absent) Urine Glucose Negative (Negative) Blood Type O Positive Antibody Screen Negative Assess/Plan/Problems-Billing Assessment: 77 yo F with h/o chronic A. fib (Coumadin held in 10/2016 after a UGI bleed from a prepyloric ulcer was noted), Parkinson's, orthostatic hypotension, pacer for SSS, HTN presents with sudden onset of left sided weakness and left hemineglect - Patient Problems (1) CVA (cerebral vascular accident) Comment: cont on ASA and statin appreciate Dr. Baker's consult MRI brain ordered to eval extent of CVA , but due to hospital protocol constrains-unable to have it done during pt's hospital stay. presumed cardioembolic (RESHMA neg for PFO in 2007) CTA head and neck neg for significant stenosis Bedside swallow passed, cont PT/OT. Possible PMRU placement (2) Dyslipidemia Comment: LDL >100, lipitor started at admission (3) Parkinsons Comment: Continue Sinemet (4) Orthostatic hypotension Comment: cont Fludrocortisone (5) Hypertension Comment: Continue metoprolol. (6) GI (gastrointestinal bleed) Comment: Resolved in 10/2016, due to prepyloric ulcer Continue PPI and carafate Safety of anticoagulation d/w Dr. Lee. Pt can be placed on anticoagulation once her stool is heme neg. D/w Dr. Baker who recommended repeat CT on 03/17/17 and the anticoagulation with either Eliquis(less reported GI bleeding side effects) or Pradaxa (has a reversal agent) (7) DVT prophylaxis Comment: Lovenox (8) A-fib Comment: Cont home lopressor rate controlled (9) NSVT (nonsustained ventricular tachycardia) Comment: consulted Dr. Sequeira Pacemaker to be interrogated today. lopressor's dose increased back to dose at home today for PVC's supression Status and Disposition: Inpatient
--- NOTE | 2017-03-14 16:37 | CONSULT ---
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% Afib burden, may be higher due to atrial undersensing, atrial sensitivity increased to 0.15 mV Rate control averages borderline Episodes of "NSVT" on device evaluation 03/12 and 03/13 correlate to rapid Afib on external telemetry monitoring Impression: Normal functioning pacemaker Atrial sensitivity increased to 0.15 mV due to undersensing Medications Active Medications: Acetaminophen (Tylenol Tab*) 650 mg PO Q6H PRN PRN Reason: PAIN Last Admin: 03/14/17 07:37 Dose: 650 mg Aspirin (Aspirin Ec Low Dose*) 81 mg PO DAILY [facility] Last Admin: 03/14/17 09:45 Dose: 81 mg Atorvastatin Calcium (Lipitor*) 40 mg PO 1700 [facility] Last Admin: 03/13/17 19:35 Dose: 40 mg Carbidopa/Levodopa (Sinemet 25/100 Tab(*)) 2 tab PO 1200,1600,2100 [facility] Last Admin: 03/14/17 15:52 Dose: 2 tab Carbidopa/Levodopa (Sinemet 25/100 Tab(*)) 2.5 tab PO 0800 [facility] Last Admin: 03/14/17 07:37 Dose: 2.5 tab Enoxaparin Sodium (Lovenox(*)) 40 mg SUBCUT Q24H [facility] Last Admin: 03/14/17 11:25 Dose: 40 mg Ferrous Sulfate (Ferrous Sulfate Tab*) 325 mg PO DAILY [facility] Last Admin: 03/14/17 09:45 Dose: 325 mg Fludrocortisone Acetate (Florinef Tab*) 0.1 mg PO DAILY [facility] Last Admin: 03/14/17 09:45 Dose: 0.1 mg Labetalol HCl (Trandate Iv*) 10 mg IV PUSH Q6H PRN PRN Reason: SBP > 185 or DBP >105 Metoprolol Tartrate (Lopressor Tab*) 50 mg PO BID [facility] Omeprazole (Prilosec Cap*) 20 mg PO BID [facility] Last Admin: 03/14/17 07:37 Dose: 20 mg Sucralfate (Carafate*) 1 gm PO 0600,1100,1600,2100 [facility] Last Admin: 03/14/17 15:52 Dose: 1 gm Home Medications: Fludrocortisone Acetate TAB* [Florinef TAB*] 0.1 mg PO DAILY #30 tab 11/01/16 [ Rx Confirmed 03/12/17] Metoprolol Tartrate TAB* [Lopressor TAB*] 50 mg PO BID #60 tab 11/01/16 [Rx Confirmed 03/12/17] Omeprazole CAP* [Prilosec CAP* 20 MG] 20 mg PO BID #60 cap 11/01/16 [Rx Confirmed 03/12/17] Sucralfate TAB* [Carafate*] 1 gm PO 0600,1100,1600,2100 #120 tab 11/01/16 [Rx Confirmed 03/12/17] Amlodipine Besylate [Norvasc 2.5 mg tab] 2.5 mg PO DAILY 03/12/17 [History Confirmed 03/12/17] Carbidopa/Levodop 25/100 MG(*) [Sinemet 25/100 TAB(*)] 2 tab PO 1200 03/12/17 [ History Confirmed 03/12/17] Carbidopa/Levodop 25/100 MG(*) [Sinemet 25/100 TAB(*)] 2 tab PO 1600 03/12/17 [ History Confirmed 03/12/17] Carbidopa/Levodop 25/100 MG(*) [Sinemet 25/100 TAB(*)] 2 tab PO 2100 03/12/17 [ History Confirmed 03/12/17] Carbidopa/Levodop 25/100 MG(*) [Sinemet 25/100 TAB(*)] 2.5 tab PO 0800 03/12/17 [History Confirmed 03/12/17] Ferrous Sulfate TAB* 325 mg PO DAILY 03/12/17 [History Confirmed 03/12/17] Review of Systems - Measurements Intake and Output: Intake and Output Last 24 Hours 03/12/17 03/13/17 03/14/1717 06:59 06:59 06:59 06:59 Intake Total 1455 460 520 Output Total 675 1325 400 Balance 780 -865 120 Weight 124 lb Intake: Oral 1455 460 520 Output: Urine 200 [place] 675 1125 400 Other: Estimated Void Small # Bowel Movements 0 0 # Voids 5 - Review of Systems Review of Systems Statement: All other review of systems negative, unless stated above. Objective Vital Signs: Temp Pulse Resp BP Pulse Ox 97.9 F 148 20 137/84 99 03/14/17 15:27 03/14/17 15:27 03/14/17 15:27 03/14/17 15:27 03/14/17 15:27 Oxygen Devices in Use Now: None Laboratory Results: 03/14/17 04:42 03/14/17 04:42 INR (Anticoag Therapy) 0.94 (0.89-1.11) 03/12/17 08:46 APTT 24.9 seconds (26.0-36.3) L 03/12/17 08:46 Total Bilirubin 0.80 mg/dL (0.2-1.0) 03/12/17 08:46 AST 11 U/L (13-39) L 03/12/17 08:46 ALT < 3 U/L (7-52) L 03/12/17 08:46 Alkaline Phosphatase 69 U/L (34-104) 03/12/17 08:46 Total Protein 7.2 g/dL (6.4-8.9) 03/12/17 08:46 Albumin 4.2 g/dL (3.2-5.2) 03/12/17 08:46 Globulin 3.0 g/dL (2-4) 03/12/17 08:46 Albumin/Globulin Ratio 1.4 (1-3) 03/12/17 08:46 Triglycerides 98 mg/dL 03/12/17 08:46 Cholesterol 185 mg/dL 03/12/17 08:46 LDL Cholesterol 106 mg/dL 03/12/17 08:46 HDL Cholesterol 59.0 mg/dL 03/12/17 08:46 TSH 0.61 mcIU/mL (0.34-5.60) 03/12/17 08:46 03/12/17 03/12/17 14:10 17:24 Troponin I 0.01 0.01 Assessment/Plan 77 year old woman with a history of parkinson's related falls/syncope, Afib, pacemaker, coumadin stopped 10/2016 due to UGIB admitted with CVA. -
--- NOTE | 2017-03-14 17:17 | PROCNOTE ---
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
--- NOTE | 2017-03-14 17:18 | CONSULT ---
Subjective Date of Service: 03/14/17 Interval History: Admission Date: 03/12/17 Consult date 03/14/2017 Provider: Hospitalist MARY JANE Damon Sr. Manager [employer] Dr. Young Mittal CHIEF COMPLAINT: Syncopal episode followed by left-sided weakness. Reason for consult: Afib, CVA HISTORY OF PRESENT ILLNESS: Liudmila Phelan is a 77-year-old female with a past medical history of hypertension , Parkinsons, pacemaker, AFib with warfarin stopped 10/2016 due to UGIB/PUD. Gastric ulcer was found and patient has been taking a PPI and avoiding nsaids. She was admitted with syncope and left-sided weakness. She was in her usual state of health prior to this. Initial CT did not show acute stroke. 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 There was some concern about VT on bus monitor but it just showed intermittent V pacing at a rate often in the 70's. Device interrogation with some atrial undersensing and NSVT noted last 2 days but on telemetry monitoring it seems to be incorrectly identifying rapid Afib and atrial sensitivities were adjusted. She denies any current chest discomfort, dyspnea, palpitations or lightheadedness. PAST MEDICAL HISTORY: 1. Hypertension. 2. AFib, not on Coumadin due to GI bleed. 3. Parkinson's. 4. Pacemaker placement. 5. Very labile blood pressures with significant orthostatic hypotension. This was felt to possibly be related to the Parkinson's disease. She has also had syncope possibly related to this. She is on florinef. PAST SURGICAL HISTORY: 1. Appendectomy. 2. Hysterectomy. HOME MEDICATIONS: 1. Amlodipine 2.5 mg by mouth daily. 2. Metoprolol 50 mg by mouth 2 times daily. 3. Omeprazole 20 mg by mouth 3 times daily. 4. Sinemet 25/100 two and a half tablets by mouth at 8 a.m., 2 tablets by mouth at noon, 2 tablets by mouth at 1600, 2 tablets by mouth at bedtime. 5. Carafate 1 g 4 times daily. 6. Florinef 0.1 mg by mouth daily. 7. Iron 325 mg by mouth daily. ALLERGIES: PENICILLIN. Tikosyn (VT) FAMILY HISTORY: Significant for mother with CHF, father with CHF, sister with lung cancer. SOCIAL HISTORY: The patient never smoked. Denies any alcohol or illicit drug use. Medications Active Medications: Acetaminophen (Tylenol Tab*) 650 mg PO Q6H PRN PRN Reason: PAIN Last Admin: 03/14/17 07:37 Dose: 650 mg Aspirin (Aspirin Ec Low Dose*) 81 mg PO DAILY [facility] Last Admin: 03/14/17 09:45 Dose: 81 mg Atorvastatin Calcium (Lipitor*) 40 mg PO 1700 [facility] Last Admin: 03/13/17 19:35 Dose: 40 mg Carbidopa/Levodopa (Sinemet 25/100 Tab(*)) 2 tab PO 1200,1600,2100 [facility] Last Admin: 03/14/17 15:52 Dose: 2 tab Carbidopa/Levodopa (Sinemet 25/100 Tab(*)) 2.5 tab PO 0800 [facility] Last Admin: 03/14/17 07:37 Dose: 2.5 tab Enoxaparin Sodium (Lovenox(*)) 40 mg SUBCUT Q24H [facility] Last Admin: 03/14/17 11:25 Dose: 40 mg Ferrous Sulfate (Ferrous Sulfate Tab*) 325 mg PO DAILY [facility] Last Admin: 03/14/17 09:45 Dose: 325 mg Fludrocortisone Acetate (Florinef Tab*) 0.1 mg PO DAILY [facility] Last Admin: 03/14/17 09:45 Dose: 0.1 mg Labetalol HCl (Trandate Iv*) 10 mg IV PUSH Q6H PRN PRN Reason: SBP > 185 or DBP >105 Metoprolol Tartrate (Lopressor Tab*) 50 mg PO BID [facility] Omeprazole (Prilosec Cap*) 20 mg PO BID [facility] Last Admin: 03/14/17 07:37 Dose: 20 mg Sucralfate (Carafate*) 1 gm PO 0600,1100,1600,2100 [facility] Last Admin: 03/14/17 15:52 Dose: 1 gm Home Medications: Fludrocortisone Acetate TAB* [Florinef TAB*] 0.1 mg PO DAILY #30 tab 11/01/16 [ Rx Confirmed 03/12/17] Metoprolol Tartrate TAB* [Lopressor TAB*] 50 mg PO BID #60 tab 11/01/16 [Rx Confirmed 03/12/17] Omeprazole CAP* [Prilosec CAP* 20 MG] 20 mg PO BID AC #60 cap 11/01/16 [Rx Confirmed 03/12/17] Sucralfate TAB* [Carafate*] 1 gm PO 0600,1100,1600,2100 #120 tab 11/01/16 [Rx Confirmed 03/12/17] Amlodipine Besylate [Norvasc 2.5 mg tab] 2.5 mg PO DAILY 03/12/17 [History Confirmed 03/12/17] Carbidopa/Levodop 25/100 MG(*) [Sinemet 25/100 TAB(*)] 2 tab PO 1200 03/12/17 [ History Confirmed 03/12/17] Carbidopa/Levodop 25/100 MG(*) [Sinemet 25/100 TAB(*)] 2 tab PO 1600 03/12/17 [ History Confirmed 03/12/17] Carbidopa/Levodop 25/100 MG(*) [Sinemet 25/100 TAB(*)] 2 tab PO 2100 03/12/17 [ History Confirmed 03/12/17] Carbidopa/Levodop 25/100 MG(*) [Sinemet 25/100 TAB(*)] 2.5 tab PO 0800 03/12/17 [History Confirmed 03/12/17] Ferrous Sulfate TAB* 325 mg PO DAILY 03/12/17 [History Confirmed 03/12/17] Review of Systems - Measurements Intake and Output: Intake and Output Last 24 Hours 03/12/17 03/13/17 03/14/17 03/15/17 06:59 06:59 06:59 06:59 Intake Total 1455 460 520 Output Total 675 1325 400 Balance 780 -865 120 Weight 124 lb Intake: Oral 1455 460 520 Output: Urine 200 [place] 675 1125 400 Other: Estimated Void Small # Bowel Movements 0 0 # Voids 5 - Review of Systems Constitutional Symptoms: Positive: Unexplained Falls Negative: Weight Gain, Weight Loss, Fever, Night Sweats Dermatology: Negative: Rash, Skin Lesions HEENT: Negative: Change in Hearing, Vertigo, Dental Problems Eyes: Negative: Change in Vision, Double Vision Thyroid: Positive: Palpitations Negative: Sweatiness, Tremor, Primary Hypothyroidism, Primary Hyperthyroidism , Weight Loss, Weight Gain Pulmonary: Negative: Cough, Sputum, Hemoptysis, Respiratory Distress, Shortness of Breath, COPD Cardiology: Positive: Syncope Negative: Chest Pain, Shortness of Breath, Swelling of Ankles, Peripheral Vascular Dis, Edema, Claudication, Paroxysmal Nocturnal Dyspnea, Orthopnea Gastroenterology: Negative: Abdominal Pain, Nausea, Vomiting, Anorexia, Indigestion, Difficulty Swallowing, Heartburn, Constipation, Diarrhea Genital - Urinary: Negative: Dysuria, Hematuria Musculoskeletal: Negative: Joint Pain, Joint Stiffness, Arthritis Endocrinology: Negative: Thyroid Problems, Obesity, Diabetes, Hyperglycemia, Hypoglycemia, Diabetic Foot Ulcers, Calluses Hematologic/Lymphatic: Positive: Easy Brusing Negative: Hx Leukemia, Hx Lymphoma, Use of Anticoagulant, Use of Antiplatelet Drugs Neurology: Positive: Change in Vision, Change in Walking, Hx of Stroke\TIA Negative: Migraines, Change in Balancing, Change in Coordination, Change in Memory, Change in Speech, Change in Sphincter Function, Numbness\Paresthesiae, Unexplained Weakness, Hx Seizures Psychiatry: Negative: Sexual Dysfunction, Weight Change, Unusual Anxiety, Suicidal Ideation Allergic/Immunologic: Negative: Hx Seasonal Allergies, Hx HIV, Immunocompromise Review of Systems Statement: All other review of systems negative, unless stated above. Objective Vital Signs: Temp Pulse Resp BP Pulse Ox 97.9 F 148 20 137/84 99 03/14/17 15:27 03/14/17 15:27 03/14/17 15:27 03/14/17 15:27 03/14/17 15:27 Oxygen Devices in Use Now: None Appearance: very pleasant, nad Ears/Nose/Mouth/Throat: Clear Oropharnyx Neck: NL Appearance and Movements; NL JVP Respiratory: Symmetrical Chest Expansion and Respiratory Effort, Clear to Auscultation Cardiovascular: No Edema, - - irregularly irregular, no significant murmur, pacemaker right chest Abdominal: NL Sounds; No Tenderness; No Distention Extremities: No Edema, No Clubbing, Cyanosis Skin: No Rash or Ulcers Neurological: Alert and Oriented x 3, - - full neuro exam not performed Laboratory Results: 03/14/17 04:42 03/14/17 04:42 INR (Anticoag Therapy) 0.94 (0.89-1.11) 03/12/17 08:46 APTT 24.9 seconds (26.0-36.3) L 03/12/17 08:46 Total Bilirubin 0.80 mg/dL (0.2-1.0) 03/12/17 08:46 AST 11 U/L (13-39) L 03/12/17 08:46 ALT < 3 U/L (7-52) L 03/12/17 08:46 Alkaline Phosphatase 69 U/L (34-104) 03/12/17 08:46 Total Protein 7.2 g/dL (6.4-8.9) 03/12/17 08:46 Albumin 4.2 g/dL (3.2-5.2) 03/12/17 08:46 Globulin 3.0 g/dL (2-4) 03/12/17 08:46 Albumin/Globulin Ratio 1.4 (1-3) 03/12/17 08:46 Triglycerides 98 mg/dL 03/12/17 08:46 Cholesterol 185 mg/dL 03/12/17 08:46 LDL Cholesterol 106 mg/dL 03/12/17 08:46 HDL Cholesterol 59.0 mg/dL 03/12/17 08:46 TSH 0.61 mcIU/mL (0.34-5.60) 03/12/17 08:46 03/12/17 03/12/17 14:10 17:24 Troponin I 0.01 0.01 Diagnostic Imaging: Carotid Doppler - (10/29/2016) Minimal plaque bilaterally within carotid bulbs and proximal ICA's. No hemodynamically significant stenosis present. Antegrade flow in bilateral vertebral arteries. Lexiscan Stress Test - (10/28/2016) Resting EKG NSR 60bpm and non-specific ST changes. Vasodilatation noted with Regadenoson administration. No EKG changes of ischemia. Frequent PAC's, PVC's seen, one atrial couplet. Nuclear radiology reports Low risk. No evidence of fixed or reversible perfusion defect identified. LV normal in size. Normal EF of 87%. Echocardiogram - (10/23/2016) Mild concentric LVH. Normal wall motion and contractility, LVEF 55-60%. Mild diastolic dysfunction, impaired relaxationpattern. RV global systolic function normal. Left atrium moderately to severely dilated. Mitral valve leaflets mildly thickened, mild to moderate MR. Trace to mild TR. Cardiac Procedures: Pacemaker Implantation - (05/07/2016) Changed to Medtronic [id number] MRI compatible device tte 03/12/2017: no significant change from 10/29/2016 ct brain 03/12/2017: no acute findings cta neck 03/12: minimal atherosclerosis carotid arteries EKG Data: ekg 03/12/2017: afib, lvh with repolarization abnormalities, paced v beat Assessment/Plan 77 year old woman with a history of parkinson's related falls/syncope and orthostatic hypotension, Afib, pacemaker, coumadin stopped 10/2016 due to UGIB/ PUD admitted with CVA and related symptoms. - when ok with Neurology would stop aspirin and SQ DVT prophylaxis and start eliquis 5 mg PO BID. This medication has lowest risk of GI bleed of noacs. She has borderline criteria (age 78 and weight) for the 2.5 dosing but given that she just had an acute CVA suspected from Afib I would use the full dose. She had trouble affording tikosyn before so we should check the cost of this medication and may be eligible for tier reduction for medical necessity. We did not discuss this today but she could be considered for a watchman device in the future given her history of GI bleed and falls at the discretion of her regular base brander, Dr. Young Mittal. She should remain on PPI and continue to avoid NSAIDs. We discussed risks of lifethreatening hemorrhage and lack of FDA approved reversal agent. She would accept these risks in favor of the expected benefit of recurrent ischemic CVA prevention. - Given her extreme variations in blood pressure and prior related symptoms, I would not increase her rate control any more (marginal rate control currently) given results of the RACE II trial and the fact that her LV function has remained normal. Thank you for allowing me to participate in the cardiovascular care of this patient. Please do not hesitate to contact me with questions or concerns.
[2017-03-14] MEDS: Atorvastatin* 40 MG TAB PO SCH (17:51)
[2017-03-15] MEDS: Sucralfate TAB* 1 GM PO SCH ×4 (05:07→20:09)
[2017-03-15] MEDS: Omeprazole CAP* 20 MG PO SCH ×2 (08:18→16:46)
[2017-03-15] MEDS: Ferrous Sulfate TAB* 325 MG PO SCH (08:20)
[2017-03-15] MEDS: Metoprolol Tartrate TAB* 50 mg PO SCH ×2 (08:20→20:07)
[2017-03-15] MEDS: Fludrocortisone Acetate TAB* 0.1 MG PO SCH (08:20)
[2017-03-15] MEDS: Aspirin EC Low Dose* 81 MG TAB.EC PO SCH (08:20)
[2017-03-15] MEDS: Carbidopa/Levodop 25/100 MG TAB(*) PO SCH ×4 (08:21→20:06)
[2017-03-15] MEDS: Enoxaparin(*) 40 MG/0.4 ML SYR SUBCUT SCH (11:53)
--- NOTE | 2017-03-15 13:18 | PN ---
Subjective Date of Service: 03/15/17 Interval History: pt feels well. Left sided deficit is improving Objective Active Medications: Acetaminophen (Tylenol Tab*) 650 mg PO Q6H PRN PRN Reason: PAIN Last Admin: 03/14/17 07:37 Dose: 650 mg Aspirin (Aspirin Ec Low Dose*) 81 mg PO DAILY [facility] Last Admin: 03/15/17 08:20 Dose: 81 mg Atorvastatin Calcium (Lipitor*) 40 mg PO 1700 [facility] Last Admin: 03/14/17 17:51 Dose: 40 mg Carbidopa/Levodopa (Sinemet 25/100 Tab(*)) 2 tab PO 1200,1600,2100 [facility] Last Admin: 03/14/17 20:23 Dose: 2 tab Carbidopa/Levodopa (Sinemet 25/100 Tab(*)) 2.5 tab PO 0800 [facility] Last Admin: 03/15/17 08:21 Dose: 2.5 tab Enoxaparin Sodium (Lovenox(*)) 40 mg SUBCUT Q24H [facility] Last Admin: 03/15/17 11:53 Dose: 40 mg Ferrous Sulfate (Ferrous Sulfate Tab*) 325 mg PO DAILY [facility] Last Admin: 03/15/17 08:20 Dose: 325 mg Fludrocortisone Acetate (Florinef Tab*) 0.1 mg PO DAILY [facility] Last Admin: 03/15/17 08:20 Dose: 0.1 mg Labetalol HCl (Trandate Iv*) 10 mg IV PUSH Q6H PRN PRN Reason: SBP > 185 or DBP >105 Metoprolol Tartrate (Lopressor Tab*) 50 mg PO BID [facility] Last Admin: 03/15/17 08:20 Dose: 50 mg Omeprazole (Prilosec Cap*) 20 mg PO BID AC [facility] Last Admin: 03/15/17 08:18 Dose: 20 mg Sucralfate (Carafate*) 1 gm PO 0600,1100,1600,2100 [facility] Last Admin: 03/15/17 11:53 Dose: 1 gm Vital Signs 03/14/17 03/14/17 03/14/17 14:08 15:27 19:25 Temperature 97.8 F 97.9 F 98.0 F Pulse Rate 77 148 90 Respiratory 20 16 Rate Blood Pressure 114/65 137/84 145/83 (mmHg) O2 Sat by Pulse 97 99 97 Oximetry 03/14/17 03/14/17 03/15/17 20:00 23:35 04:06 Temperature 98.6 F 97.8 F Pulse Rate 94 61 Respiratory 16 18 20 Rate Blood Pressure 150/87 151/85 (mmHg) O2 Sat by Pulse 97 99 Oximetry 03/15/17 03/15/17 08:00 08:17 Temperature 98.7 F Pulse Rate 81 Respiratory 16 16 Rate Blood Pressure 151/108 (mmHg) O2 Sat by Pulse 98 Oximetry Oxygen Devices in Use Now: None Appearance: 77 yo F in nAD, aAOx3 Eyes: No Scleral Icterus, PERRLA Ears/Nose/Mouth/Throat: NL Teeth, Lips, Gums, Mucous Membranes Moist Neck: NL Appearance and Movements; NL JVP, Trachea Midline Respiratory: Symmetrical Chest Expansion and Respiratory Effort, Clear to Auscultation Cardiovascular: NL Sounds; No Murmurs; No JVD, - - irregular Abdominal: NL Sounds; No Tenderness; No Distention, No Hepatosplenomegaly Lymphatic: No Cervical Adenopathy Extremities: No Edema, No Clubbing, Cyanosis Skin: No Rash or Ulcers, No Nodules or Sclerosis Neurological: Alert and Oriented x 3, - - speech clear, R gaze preference still present, L LE at 4+/5, L UE at 4+/5, left hemineglect-improving Result Diagrams: 03/14/17 04:42 03/14/17 04:42 Additional Lab and Data: Lab Results 03/12/17 03/12/17 03/12/17 Range/Units 08:46 08:46 08:46 WBC 11.4 H (3.5-10.8) 10^3/ul RBC 4.12 (4.0-5.4) 10^6/ul Hgb 12.1 (12.0-16.0) g/dl Hct 38 (35-47) % MCV 92 (80-97) fL MCH 30 (27-31) pg MCHC 32 (31-36) g/dl RDW 18 H (10.5-15) % Plt Count 279 (150-450) 10^3/ul MPV 8 (7.4-10.4) um3 Neut % (Auto) 83.3 H (38-83) % Lymph % (Auto) 9.9 L (25-47) % [place] % (Auto) 6.0 (1-9) % Eos % (Auto) 0.3 (0-6) % Baso % (Auto) 0.5 (0-2) % Absolute Neuts (auto) 9.5 H (1.5-7.7) 10^3/ul Absolute Lymphs (auto) 1.1 (1.0-4.8) 10^3/ul Absolute Monos (auto) 0.7 (0-0.8) 10^3/ul Absolute Eos (auto) 0 (0-0.6) 10^3/ul Absolute Basos (auto) 0.1 (0-0.2) 10^3/ul Absolute Nucleated RBC 0 10^3/ul Nucleated RBC % 0 INR (Anticoag Therapy) 0.94 (0.89-1.11) APTT 24.9 L (26.0-36.3) seconds Sodium 138 (133-145) mmol/L Potassium 3.9 (3.5-5.0) mmol/L Chloride 104 (101-111) mmol/L Carbon Dioxide 27 (22-32) mmol/L Anion Gap 7 (2-11) mmol/L BUN 19 (6-24) mg/dL Creatinine 0.91 (0.51-0.95) mg/dL Est GFR ( Amer) 76.7 (>60) Est GFR (Non-Af Amer) 59.6 (>60) BUN/Creatinine Ratio 20.9 H (8-20) Glucose 102 H (70-100) mg/dL Lactic Acid (0.5-2.0) mmol/L Calcium 9.5 (8.6-10.3) mg/dL Total Bilirubin 0.80 (0.2-1.0) mg/dL AST 11 L (13-39) U/L ALT < 3 L (7-52) U/L Alkaline Phosphatase 69 (34-104) U/L Troponin I 0.01 (<0.04) ng/mL Total Protein 7.2 (6.4-8.9) g/dL Albumin 4.2 (3.2-5.2) g/dL Globulin 3.0 (2-4) g/dL Albumin/Globulin Ratio 1.4 (1-3) Triglycerides 98 mg/dL Cholesterol 185 mg/dL LDL Cholesterol 106 mg/dL HDL Cholesterol 59.0 mg/dL Urine Color Urine Appearance Urine pH (5-9) Ur Specific [place] (1.010-1.030) Urine Protein (Negative) Urine Ketones (Negative) Urine Blood (Negative) Urine Nitrate (Negative) Urine Bilirubin (Negative) Urine Urobilinogen (Negative) Ur Leukocyte Esterase (Negative) Urine WBC (Auto) (Absent) Urine RBC (Auto) (Absent) Ur Squamous Epith Cells (Absent) Urine Bacteria (Absent) Urine Glucose (Negative) Blood Type Antibody Screen 03/12/17 03/12/17 03/12/17 Range/Units 08:46 08:46 08:54 WBC (3.5-10.8) 10^3/ul RBC (4.0-5.4) 10^6/ul Hgb (12.0-16.0) g/dl Hct (35-47) % MCV (80-97) fL MCH (27-31) pg MCHC (31-36) g/dl RDW (10.5-15) % Plt Count (150-450) 10^3/ul MPV (7.4-10.4) um3 Neut % (Auto) (38-83) % Lymph % (Auto) (25-47) % [place] % (Auto) (1-9) % Eos % (Auto) (0-6) % Baso % (Auto) (0-2) % Absolute Neuts (auto) (1.5-7.7) 10^3/ul Absolute Lymphs (auto) (1.0-4.8) 10^3/ul Absolute Monos (auto) (0-0.8) 10^3/ul Absolute Eos (auto) (0-0.6) 10^3/ul Absolute Basos (auto) (0-0.2) 10^3/ul Absolute Nucleated RBC 10^3/ul Nucleated RBC % INR (Anticoag Therapy) (0.89-1.11) APTT (26.0-36.3) seconds Sodium (133-145) mmol/L Potassium (3.5-5.0) mmol/L Chloride (101-111) mmol/L Carbon Dioxide (22-32) mmol/L Anion Gap (2-11) mmol/L BUN (6-24) mg/dL Creatinine (0.51-0.95) mg/dL Est GFR ( Amer) (>60) Est GFR (Non-Af Amer) (>60) BUN/Creatinine Ratio (8-20) Glucose (70-100) mg/dL Lactic Acid 0.8 (0.5-2.0) mmol/L Calcium (8.6-10.3) mg/dL Total Bilirubin (0.2-1.0) mg/dL AST (13-39) U/L ALT (7-52) U/L Alkaline Phosphatase (34-104) U/L Troponin I (<0.04) ng/mL Total Protein (6.4-8.9) g/dL Albumin (3.2-5.2) g/dL Globulin (2-4) g/dL Albumin/Globulin Ratio (1-3) Triglycerides mg/dL Cholesterol mg/dL LDL Cholesterol mg/dL HDL Cholesterol mg/dL Urine Color Straw Urine Appearance Cloudy Urine pH 7.0 (5-9) Ur Specific [place] 1.010 (1.010-1.030) Urine Protein Negative (Negative) Urine Ketones Negative (Negative) Urine Blood 1+ H (Negative) Urine Nitrate Negative (Negative) Urine Bilirubin Negative (Negative) Urine Urobilinogen Negative (Negative) Ur Leukocyte Esterase Negative (Negative) Urine WBC (Auto) Trace(0-5/hpf) (Absent) Urine RBC (Auto) 2+(6-10/hpf) H (Absent) Ur Squamous Epith Cells Present H (Absent) Urine Bacteria Absent (Absent) Urine Glucose Negative (Negative) Blood Type O Positive Antibody Screen Negative Assess/Plan/Problems-Billing Assessment: 77 yo F with h/o chronic A. fib (Coumadin held in 10/2016 after a UGI bleed from a prepyloric ulcer was noted), Parkinson's, orthostatic hypotension, pacer for SSS, HTN presents with sudden onset of left sided weakness and left hemineglect - Patient Problems (1) CVA (cerebral vascular accident) Comment: cont on ASA and statin appreciate Dr. Baker's consult MRI brain ordered to eval extent of CVA , but due to hospital protocol constrains-unable to have it done during pt's hospital stay. presumed cardioembolic (RESHMA neg for PFO in 2007) CTA head and neck neg for significant stenosis Bedside swallow passed, cont PT/OT. Possible PMRU placement tomorrow (2) Dyslipidemia Comment: LDL >100, lipitor started at admission (3) Parkinsons Comment: Continue Sinemet (4) Orthostatic hypotension Comment: cont Fludrocortisone (5) Hypertension Comment: Continue metoprolol. mild HTN noted, but acceptable in this pt with h/o orthostatic hypotension and syncope (6) GI (gastrointestinal bleed) Comment: Resolved in 10/2016, due to prepyloric ulcer Continue PPI and carafate Safety of anticoagulation d/w Dr. Lee. Pt can be placed on anticoagulation once her stool is heme neg. D/w Dr. Baker who recommended repeat CT on 03/17/17 and anticoagulation with Eliquis(less reported GI bleeding side effects). Once Eliquis is started will stop ASA (7) A-fib Comment: Cont home lopressor rate controlled (8) NSVT (nonsustained ventricular tachycardia) Comment: consulted Dr. Sequeira PVC's on telem are paced A. fib beats, no further eval needed (9) DVT prophylaxis Comment: Lovenox Status and Disposition: Inpatient
--- NOTE | 2017-03-15 15:04 | RAD ---
INDICATION: Pain overlying the left fibula after falling from bed COMPARISON: None TECHNIQUE: 2 view radiograph of the left knee. FINDINGS: The visualized bones are well-corticated and properly aligned. Mild degenerative changes include loss of joint space height of the medial compartment. There is no radiographic evidence of joint effusion. There is no acute fracture, dislocation or other focal bony abnormality. IMPRESSION: Mild degenerative changes without radiographically apparent acute fracture or dislocation. If the patient's symptoms persist, follow-up imaging is recommended.
[2017-03-15] MEDS: Atorvastatin* 40 MG TAB PO SCH (16:46)
[2017-03-16] MEDS: Sucralfate TAB* 1 GM PO SCH ×2 (06:41→11:06)
[2017-03-16] MEDS: Omeprazole CAP* 20 MG PO SCH (07:48)
[2017-03-16] MEDS: Carbidopa/Levodop 25/100 MG TAB(*) PO SCH (07:49)
[2017-03-16] MEDS: Ferrous Sulfate TAB* 325 MG PO SCH (09:21)
[2017-03-16] MEDS: Metoprolol Tartrate TAB* 50 mg PO SCH (09:21)
[2017-03-16] MEDS: Fludrocortisone Acetate TAB* 0.1 MG PO SCH (09:21)
[2017-03-16] MEDS: Aspirin EC Low Dose* 81 MG TAB.EC PO SCH (09:21)
[2017-03-16 10:32] VITALS: BP 89/53
[2017-03-16] MEDS: Enoxaparin(*) 40 MG/0.4 ML SYR SUBCUT SCH (11:05)
--- NOTE | 2017-03-17 15:39 | DS ---
CC: Dr. Damon; Dr. Junior; Dr. Mittal, Dr. Sequeira; Dr. Baker; Dr. Menendez * DISCHARGE SUMMARY: DATE OF ADMISSION: 03/12/17 DATE OF DISCHARGE: The patient is transferred to our physiotherapy unit at [facility], 03/16/17. PRIMARY CARE PROVIDER: Dr. Damon. DISCHARGE DIAGNOSES: Acute ischemic stroke with residual left-sided hemineglect and right gaze preference as well as left-sided weakness. Stroke was presumed to be cardioembolic and involving the right hemisphere. SECONDARY DIAGNOSES: 1. History of chronic atrial fibrillation. Up to the patient's current hospital stay and beginning in October of 2016, the patient had not been anticoagulated due to gastrointestinal bleed documented in October of 2016. 2. History of gastrointestinal bleed due to prepyloric ulcer diagnosed in October of 2016, at which point, patient's anticoagulation was stopped. 3. Dyslipidemia. The patient's LDL was noted to be over 100 and Lipitor was started during this current hospital stay. 4. History of Parkinson's. 5. History of dysautonomia and orthostatic hypotension, most likely related to Parkinson's. The patient has history of many syncopal or near syncopal episodes due to orthostatic hypotension. Due to that, she was placed on Florinef and higher pressures when she is lying down need to be tolerated. 6. History of hypertension, please see above. The patient occasionally gets markedly hypertensive, but her blood pressure lowers when she stands up. The patient's hypertension is treated very conservatively due to orthostatic hypotension. Please also note that during the patient's hospital stay, there was a question of nonsustained ventricular tachycardia, which was noted to be actually paced atrial fibrillation rhythm. 7. Status post pacemaker placement due to sick sinus syndrome in the past. CONSULTATIONS DURING THE HOSPITAL STAY: Included Dr. Sequeira from Cardiology and Dr. Baker from Neurology. LABORATORY DATA AND STUDIES PERFORMED DURING THE HOSPITAL STAY: Included: On 03/14/17, white blood cell count of 10.8, hemoglobin of 11.7, hematocrit of 37, and platelets of 293. On 03/14/17, sodium of 136, potassium of 3.7, chloride 103, carbon dioxide 26, BUN 20, creatinine 0.85. Knee x-ray obtained on 03/15/17, this was of the left knee due to pain showed "mild degenerative changes without radiographically apparent acute fracture or dislocation." Portable chest x-ray obtained on 03/12/17, impression: "No active cardiopulmonary disease." Brain CT obtained on 03/12/17, impression: "Stable right parietotemporal encephalomalacia. No acute intracranial pathology." Head CTA obtained also at admission, impression: "Minimal atherosclerotic plaque is noted in the internal carotid arteries bilaterally with no evidence of significant stenosis. CTA of the head and neck demonstrates no evidence of carotid artery or vertebral artery dissection. No definite branch occlusion or aneurysmal dilatation is present." An EEG obtained on 03/12/17, impression: "Abnormal EEG due to generalized slowing from the right hemisphere consistent with diffuse right hemispheric dysfunction particularly in the posterior distribution. There are no epileptiform features to this recording." Transthoracic echocardiogram obtained on 03/13/17 showed the left ventricular wall motion and contractility within normal limits. EF of 50% to 55%. Left atrium was severely dilated. There was [id number] tricuspid regurgitation and mild mitral regurgitation. Bubble study was not performed since it was negative on RESHMA in 2007. The patient's lipid profile obtained on 03/12/17, showed cholesterol of 185, LDL of 106, and HDL of 59. TSH was noted to be 0.6. The patient's troponins were 0.01 throughout her hospital stay. HOSPITALIZATION COURSE: Liudmila Phelan is a 77-year-old female who has a history of chronic atrial fibrillation. She was anticoagulated up until October of 2016, when she was admitted for GI bleed, noted to have prepyloric ulcer, and her anticoagulation was stopped. During that hospital stay, the patient also was noted to have orthostatic hypotension that was very difficult to control. The patient would be markedly hypertensive when lying down and markedly hypotensive when standing up. Due to that, her medications at that point were adjusted and it was noted that unfortunately occasional hypertension needs to be tolerated when the patient is lying down. She was discharged from our facility and her anticoagulation was never restarted. She presented back to our ER on 03/12/17 after a syncopal episode and subsequent development of left-sided weakness and left- sided hemineglect as well as right-sided gaze preference. Initially, there was a question of possibility of hypertensive encephalopathy versus seizure versus CVA. As the day progressed, it became evident that the patient had ischemic stroke. Unfortunately, we were unable to get an MRI of the patient' s brain due to protocol constraints while obtaining MRI in the inpatient setting of patients with history of MRI compatible pacemakers. The patient was seen by Dr. Baker in consultation and aspirin was started. It was noted that the patient at some point needs to be placed on anticoagulation and that her stroke is most likely cardioembolic. Throughout her hospital stay, she was improving on a regular basis. By the time of discharge, she still has right side gaze preference, but she is able to recognize her left hand and hemineglect is getting better. She still has 4+/5 weakness in the left upper and left lower extremity. In regards to future anticoagulation, I discussed the case with both Dr. Baker from Neurology and Dr. Lee from Gastroenterology as well as Dr. Sequeira from Cardiology. It is recommended for the patient to be on Eliquis at 5 mg twice a day. That can be started on 03/17/[address] of the brain performed without contrast is negative and stool Hemoccult is negative. Those instructions were also verbalized to Dr. Menendez. During the patient's hospital stay, she was noted to be in atrial fibrillation with occasional PVCs. There was question of ventricular tachycardia bouts and due to that, Dr. Sequeira saw the patient in consultation and stated that the patient actually has paced atrial fibrillation beats occasionally that appears to be like ventricular tachycardia. By the time of discharge, the patient still was noted to be heme negative. She still needs repeat of her brain on 03/17/17 and if that is negative, she is to be started on Eliquis. Once Eliquis is started, aspirin should be discontinued. The patient was evaluated by Physical Therapy and Occupational Therapy and deemed to be a good candidate for physiotherapy until she is being transferred on 03/16/17. MEDICATIONS AT DISCHARGE: Include: 1. Amlodipine 2.5 mg daily. 2. Carbidopa/levodopa 25/100 two tablets at 1600, 2 tablets at 2100, and 2 tablets at noon as well as 2-1/2 tablets at 8 a.m. 3. Ferrous sulfate 325 mg daily. 4. Fludrocortisone 0.1 mg daily. 5. Metoprolol tartrate 50 mg b.i.d. 6. Omeprazole 20 mg b.i.d. 7. Carafate 1 g 3 times a day. 8. Aspirin 81 mg daily. 9. Lipitor 40 mg daily. At discharge, the patient is recommended to have a CTA of the brain on 03/17/17 and if that is negative for bleed, to start anticoagulation with Eliquis at 5 mg p.o. b.i.d. and to stop aspirin. For any questions, please direct them either to myself or our Neurology service rounding in the hospital. PHYSICAL EXAMINATION: At the time of discharge, blood pressure of 89/53, heart rate of 77 and regular, respiratory rate of 16, oxygen saturation 98% on room air, temperature of 97.8. General: The patient is a very pleasant 77-year-old female, who is in no acute distress. Alert, awake, and oriented x3. HEENT: Head atraumatic, normocephalic. Eyes: Pupils are equal, reactive to light and accommodation. Oropharynx clear. Mucosa moist. Neck: Supple. No JVD. No bruits bilaterally. Cardiovascular: Irregularly irregular rhythm, no murmur. Respiratory: Clear to auscultation bilaterally. Abdomen: Soft, nontender. Bowel sounds present in all quadrants. Extremities: There is no edema. Pulses are +2 bilaterally. There is no clubbing or cyanosis. Neuro Evaluation : The patient is noted to have right-sided gaze preference. She also has a left -sided hemineglect. Her left upper extremity is 4+/5 in motor strength and left lower extremity has also 4+/5 in motor strength. Her sensation is diminished in the left upper and left lower extremity. Please note that the patient's low blood pressure was obtained after the patient was sat up from a lying position and is consistent with the patient's history of orthostatic hypotension. Please note that this is a short summary of the patient's hospitalization. Please refer to further medical records for details. TIME SPENT: Approximately 50 minutes was spent on the patient's discharge. [id number]/[facility] #: [id number]
== END 2017-03-16 11:55 | DRG 65 ==
LOC: ED 08:15 → MEDTELE 10:45
PROVIDERS: ADMIT Hospitalist; ATTEND Internal Medicine
PROC: 4A10X4Z Monitoring of Central Nervous Electrical Activity, External Approach (ICD-10-PCS; 2017-03-12)
PROC: 4B02XSZ Measurement of Cardiac Pacemaker, External Approach (ICD-10-PCS; principal; 2017-03-14)
DX: I63.9 Cerebral infarction, unspecified (principal); G81.94 Hemiplegia, unspecified affecting left nondominant side; I47.2 Ventricular tachycardia; G20 Parkinson's disease; R41.4 Neurologic neglect syndrome; H53.462 Homonymous bilateral field defects, left side; I48.2 Chronic atrial fibrillation; I10 Essential (primary) hypertension; I08.1 Rheumatic disorders of both mitral and tricuspid valves; M06.9 Rheumatoid arthritis, unspecified; K21.9 Gastro-esophageal reflux disease without esophagitis; G43.909 Migraine, unspecified, not intractable, without status migrainosus; Z88.0 Allergy status to penicillin; Z95.0 Presence of cardiac pacemaker; Z85.828 Personal history of other malignant neoplasm of skin; Z90.710 Acquired absence of both cervix and uterus; Z82.49 Family history of ischemic heart disease and other diseases of the circulatory system; Z80.1 Family history of malignant neoplasm of trachea, bronchus and lung; R20.0 Anesthesia of skin; E78.5 Hyperlipidemia, unspecified; I95.1 Orthostatic hypotension; Z79.01 Long term (current) use of anticoagulants; Z79.82 Long term (current) use of aspirin
CPT/HCPCS: 36415; 70450; 70496; 70498; 71010; 80048; 80053; 80061; 81003; 81015; 82272; 83605; 83735; 84443; 84484; 85025; 85610; 85730; 86850; 86900; 86901; 93005; 93306; 95816; A9270-GY; J1650; Q9967

== ENCOUNTER 2017-03-16 10:05 | Inpatient (IN) | payer MEDICARE ==
[2017-03-16] MEDS ORDERED: Bisacodyl SUPP* 10 MG SUPP PR PRN (12:24)
[2017-03-16] MEDS ORDERED: Al Hydrox/Mg Hydrox/Simet LIQ* 30 ML UDC PO PRN (12:24)
[2017-03-16] MEDS ORDERED: Carbidopa/Levodop 25/100 MG TAB(*) PO ONE (12:31)
[2017-03-16] MEDS ORDERED: Polyethylene Glycol 3350* 17 GM PACKET PO PRN (12:41)
[2017-03-16] MEDS: Enoxaparin(*) 40 MG/0.4 ML SYR SUBCUT SCH (12:56)
[2017-03-16] MEDS: Omeprazole CAP* 20 MG PO SCH (16:44)
[2017-03-16] MEDS: Carbidopa/Levodop 25/100 MG TAB(*) PO SCH ×2 (16:44→19:38)
[2017-03-16] MEDS: Sucralfate TAB* 1 GM PO SCH ×2 (16:45→19:35)
[2017-03-16] MEDS: Atorvastatin* 40 MG TAB PO SCH (17:21)
[2017-03-16] MEDS: Senna TAB PO SCH (19:35)
[2017-03-16] MEDS: Docusate CAP* 100 MG PO SCH (19:35)
[2017-03-16] MEDS: Metoprolol Tartrate TAB* 50 mg PO SCH (19:35)
[2017-03-16] MEDS: QUEtiapine TAB* 25 MG PO SCH (19:35)
[2017-03-16] MEDS ORDERED: Carbidopa/Levodop 25/100 MG TAB(*) ONE (19:37)
[2017-03-16] MEDS: Acetaminophen TAB* 325 MG PO PRN (20:45)
--- NOTE | 2017-03-17 00:46 | HP ---
CC: Dr. Damon; Dr. Junior; Dr. Mittal * REHABILITATION ADMISSION: DATE OF ADMISSION: 03/16/17 PRIMARY CARE PROVIDER: Dr. Damon. NEUROLOGY: Dr. Junior. CARDIOLOGY: Dr. Mittal. 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 She has not been on any anticoagulation since 11/01. She has a pacemaker for sick sinus syndrome. The day prior to admission on 03/11/17, the patient had an apparent syncopal event where she woke up on the floor. She was not aware of any weakness at that point, but did use her right hand to move her left arm. Her son-in-law who was out mowing the lawn came in and helped to get her into the chair. She started to feel better and went to bed. The following morning, she felt weak and hit her [employer] Alert button and was brought to the hospital by EMS. She was noted here to have left hemiplegia and neglect on 03/12/17. She was seen by Dr. Baker in Neurology. CT of the head showed stable right parieto-temporal encephalomalacia and no acute bleeding. She did not receive tPA. Head CTA did not show any significant stenosis. She had a RESHMA in 2007, which was negative for PFO. Transthoracic echo on 03/12/17 showed an ejection fraction of 50% to 55% with left atrial enlargement. She had an EEG that did not show any seizure discharges. She had an elevated cholesterol and was started on Lipitor. She had some chest pain, but troponins were negative. She was noted to have a left field cut and poor vision, but this seems to be improving over time. It has been throughout her hospital stay that she does have fluctuations wildly in her blood pressure. Initially, her metoprolol dose from home was decreased and amlodipine was stopped. She is back on her home dose of metoprolol, but has not restarted amlodipine. Her systolic blood pressures can vary from being in the 80s to other times as this morning up to 180. She received one dose of IV labetalol with the systolic greater than 180. She is continuing on her medicines for Parkinson disease. She is unable to get an MRI of the brain, but the neurology plan is for her to have a CT of her brain on 03/17/17 and if there is no evidence of bleeding at that point and she has had a bowel movement that tests negative for heme, she can start Eliquis 5 mg b.i.d. for stroke prophylaxis. It is presumed that she had a cardioembolic stroke. At that time also aspirin and Lovenox will need to be discontinued. There has not been a stool sample yet, but there are reports that possibly one was sent to the lab this morning. We will need to confirm that. Prior to admission, she was independent with ADLs and mobilizing using a rolling walker. With occupational therapy, she required max to total assist for toileting and a moderate amount of assistance for feeding, although she seems to be feeding herself now with setup. With physical therapy, she required a minimal amount of assistance for bed mobility, transfers minimal assistance with a rolling walker and could ambulate with minimal amount of assistance of 5 feet with a rolling walker. She has been having some confusion in the middle of the night and early mornings. She actually fell out of bed one night and has some left knee pain and pain around her left shoulder. X-ray of the left knee yesterday was negative. With the left arm, she feels like she was just trying to catch herself and therefore, felt that she did not require x-ray of the left shoulder at that time. She feels this is getting better over time. This morning, she actually called the emergency department to clarify that she really was in the hospital and took off her telemetry monitoring. PAST MEDICAL HISTORY: 1. Chronic atrial fibrillation. 2. History of sick sinus syndrome with pacemaker. 3. History of upper GI bleed in October 2016 with ulcer with holding of anticoagulation of Coumadin. 4. 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 5. Hypertension. 6. Hyperlipidemia. 7. Status post appendectomy. 8. Status post hysterectomy. FAMILY HISTORY: Mother with congestive heart failure. Father with congestive heart failure. Sister with lung cancer. SOCIAL HISTORY: She lives in [place] alone. Her home has 3 steps to enter and on that level there is a bedroom and 2 bathrooms that she could live on. If she needs to access the living room or kitchen, she would have to ascend 5 steps within the home. She has family close by. No smoking or alcohol. Her healthcare proxy is her daughter, Celena Kebede, phone number [phone]. 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 REVIEW OF SYSTEMS: See history of present illness and past medical history. The remainder of system review is completed. No significant findings. PHYSICAL EXAMINATION GENERAL: Well developed, well nourished, appearing stated age. VITAL SIGNS: Temperature 97.8, pulse is 41 on the machine but manually it seems to be more like 60, respirations 19, oxygen 100% on room air, blood pressure 138/99. MENTAL STATUS: In no acute distress. Alert and oriented x3. HEENT: Normocephalic, atraumatic. Oropharynx clear. Moist mucous membranes. LUNGS: Clear to auscultation bilaterally. HEART: Irregularly irregular. ABDOMEN: Active bowel sounds. Soft, nontender, and nondistended. EXTREMITIES: No clubbing, cyanosis, or edema. MUSCULOSKELETAL: She has functional range of motion of all of her major joints , but she does have some pain at the left lateral knee as well as in the left pectoral area with movement. NEUROLOGICAL: Cranial nerves II through XII intact with the exception of she does have a left field cut and some left neglect. Sensation is diminished in the left arm and leg relative to the right. It is not clear if she has some diminished sensation also in the right leg. Manual muscle testing shows 5/5 strength in the right upper and lower extremities. Left upper extremity is 4+ throughout as well as in the left lower extremity except she has some more difficulty with dorsiflexion being 2/5 on the left. IMPRESSION: This is a 77-year-old woman with presumed cardioembolic stroke with left field cut, neglect and hemiplegia who will be admitted to [facility], so that she can return to independent living. PLAN: 1. Cerebrovascular accident. CT of the head tomorrow morning. If this is negative for any bleeding and if we can verify that there has been a stool that has tested negative for heme, then she can start Eliquis 5 mg b.i.d. and we will stop aspirin and Lovenox. 2. Parkinson disease. Continue with her current dosing of Sinemet. 3. Sundowning and hallucinations at night. Start low dose Seroquel 12.5 mg at bedtime. 4. History of GI bleeding. Continue with omeprazole b.i.d. and heme check stool if not done yet. 5. Constipation. We will regulate her bowels. 6. History of sick sinus syndrome and hypertension. Continue with her current medications and her pacemaker was interrogated during the acute stay. 7. DVT prophylaxis. Lovenox for now, which we will potentially change to Eliquis if she is cleared for full anticoagulation. 8. Impaired vision and cognition. She will be seen by speech therapist. She did pass a swallow evaluation on the 4th floor, but we will recheck on that and also do a full cognitive evaluation as she does manage her own finances at home. 9. Impaired mobility. She will be seen by physical therapy for bed mobility, transfer gait and start training using an assistive device if she is able. 10. Impaired self-care. She will be seen by Occupational Therapy for ADL and IADL training and equipment evaluation. 11. Advance directives. I discussed this with her and yesterday on the phone with her daughter, Celena. She has desired to not be resuscitated. MOLST was completed. ESTIMATED LENGTH OF STAY: 3 to 4 weeks. [id number]/[facility] #: [id number]
[2017-03-17] MEDS: Acetaminophen TAB* 325 MG PO PRN ×2 (06:00→12:18)
[2017-03-17] MEDS: Sucralfate TAB* 1 GM PO SCH ×4 (06:00→20:49)
[2017-03-17 06:34] LABS: Hematocrit 35 % (35-47); Hemoglobin 11.4 g/dl (12.0-16.0); Mean Corpuscular HGB Conc 33 g/dl (31-36); Mean Corpuscular Hemoglobin 30 pg (27-31); Mean Corpuscular Volume 92 fL (80-97); Mean Platelet Volume 8 um3 (7.4-10.4); Red Blood Count 3.81 10^6/ul (4.0-5.4); Red Cell Distribution Width 18 % (10.5-15); White Blood Count 7.1 10^3/ul (3.5-10.8)
[2017-03-17 06:45] LABS: ALT < 3 U/L (7-52); AST 11 U/L (13-39); Albumin 3.5 g/dL (3.2-5.2); Alkaline Phosphatase 56 U/L (34-104); Anion Gap 7 mmol/L (2-11); Blood Urea Nitrogen 30 mg/dL (6-24); CO2 Carbon Dioxide 25 mmol/L (22-32); Calcium 8.9 mg/dL (8.6-10.3); Chloride 103 mmol/L (101-111); EGFR African American 68.8 (>60); EGFR Non-African American 53.5 (>60); Globulin 2.7 g/dL (2-4); Glucose 94 mg/dL (70-100); Potassium 3.6 mmol/L (3.5-5.0); Sodium 135 mmol/L (133-145); Total Protein 6.2 g/dL (6.4-8.9)
[2017-03-17] MEDS: Ferrous Sulfate TAB* 325 MG PO SCH (07:57)
[2017-03-17] MEDS: Metoprolol Tartrate TAB* 50 mg PO SCH ×2 (07:57→20:49)
[2017-03-17] MEDS: Carbidopa/Levodop 25/100 MG TAB(*) PO SCH ×4 (07:57→20:50)
[2017-03-17] MEDS: Aspirin EC Low Dose* 81 MG TAB.EC PO SCH (07:57)
[2017-03-17] MEDS: Docusate CAP* 100 MG PO SCH ×2 (07:57→22:24)
[2017-03-17] MEDS: Fludrocortisone Acetate TAB* 0.1 MG PO SCH (07:58)
[2017-03-17] MEDS: Omeprazole CAP* 20 MG PO SCH ×2 (08:01→16:02)
--- NOTE | 2017-03-17 11:50 | PN ---
Subjective Date of Service: 03/17/17 Interval History: Pt had been doing well since her arrival to [facility] yesterday. this aM she was standing up and dressing with assistance, when she complained of feeing weak and " slumped over to left side". Her SBP was 90. Now back to baseline. Feels that the sensation in left arm is improving daily. Denies CP/SOB Objective Active Medications: Acetaminophen (Tylenol Tab*) 650 mg PO Q4H PRN PRN Reason: FEVER > 101 Last Admin: 03/17/17 06:00 Dose: 650 mg Al Hydrox/Mg Hydrox/Simethicone (Maalox Plus*) 30 ml PO Q6H PRN PRN Reason: INDIGESTION Aspirin (Aspirin Ec Low Dose*) 81 mg PO DAILY [facility] Last Admin: 03/17/17 07:57 Dose: 81 mg Atorvastatin Calcium (Lipitor*) 40 mg PO 1700 [facility] Last Admin: 03/16/17 17:21 Dose: 40 mg Bisacodyl (Dulcolax Supp*) 10 mg ND DAILY PRN PRN Reason: CONSTIPATION Carbidopa/Levodopa (Sinemet 25/100 Tab(*)) 2 tab PO 1200,1600,2100 [facility] Last Admin: 03/16/17 19:38 Dose: 2 tab Carbidopa/Levodopa (Sinemet 25/100 Tab(*)) 2.5 tab PO 0800 [facility] Last Admin: 03/17/17 07:57 Dose: 2.5 tab Docusate Sodium (Colace Cap*) 100 mg PO BID [facility] Last Admin: 03/17/17 07:57 Dose: 100 mg Enoxaparin Sodium (Lovenox(*)) 40 mg SUBCUT Q24H [facility] Last Admin: 03/16/17 12:56 Dose: Not Given Ferrous Sulfate (Ferrous Sulfate Tab*) 325 mg PO DAILY [facility] Last Admin: 03/17/17 07:57 Dose: 325 mg Fludrocortisone Acetate (Florinef Tab*) 0.1 mg PO DAILY [facility] Last Admin: 03/17/17 07:58 Dose: 0.1 mg Metoprolol Tartrate (Lopressor Tab*) 50 mg PO BID [facility] Last Admin: 03/17/17 07:57 Dose: 50 mg Omeprazole (Prilosec Cap*) 20 mg PO 0700,1600 [facility] Last Admin: 03/17/17 08:01 Dose: 20 mg Polyethylene Glycol/Electrolytes (Miralax*) 17 gm PO DAILY PRN PRN Reason: CONSTIPATION Quetiapine Fumarate (Seroquel Tab*) 12.5 mg PO BEDTIME [facility] Last Admin: 03/16/17 19:35 Dose: 12.5 mg Senna (Senokot Tab*) 2 tab PO BEDTIME [facility] Last Admin: 03/16/17 19:35 Dose: 2 tab Sucralfate (Carafate*) 1 gm PO 0600,1100,1600,2100 [facility] Last Admin: 03/17/17 06:00 Dose: 1 gm Vital Signs 03/16/17 03/16/17 03/16/17 12:04 12:10 15:42 Temperature 97.8 F 97.8 F 98.9 F Pulse Rate 41 41 83 Respiratory 19 19 16 Rate Blood Pressure 138/99 138/99 113/68 (mmHg) O2 Sat by Pulse 100 100 99 Oximetry 03/16/17 03/16/17 03/16/17 19:22 19:35 23:50 Temperature 98.1 F Pulse Rate 97 58 Respiratory 16 16 16 Rate Blood Pressure 90/56 129/82 (mmHg) O2 Sat by Pulse 100 100 100 Oximetry 03/17/17 03/17/17 03/17/17 00:13 06:38 08:07 Temperature 99.0 F Pulse Rate 87 Respiratory 16 Rate Blood Pressure 125/77 (mmHg) O2 Sat by Pulse 100 98 98 Oximetry Oxygen Devices in Use Now: None Appearance: 77 yo F in nAD, aAOx3 Eyes: No Scleral Icterus, PERRLA Ears/Nose/Mouth/Throat: NL Teeth, Lips, Gums, Mucous Membranes Moist Neck: NL Appearance and Movements; NL JVP, Trachea Midline Respiratory: Symmetrical Chest Expansion and Respiratory Effort, Clear to Auscultation Cardiovascular: NL Sounds; No Murmurs; No JVD, RRR Abdominal: NL Sounds; No Tenderness; No Distention, No Hepatosplenomegaly Lymphatic: No Cervical Adenopathy Extremities: No Edema, No Clubbing, Cyanosis Skin: No Rash or Ulcers, No Nodules or Sclerosis Neurological: Alert and Oriented x 3, - - left sided neglect improved, LUE and LLE at 4+/5, R side gaze preference improving Result Diagrams: 03/17/17 06:22 03/17/17 06:22 Assess/Plan/Problems-Billing Assessment: 77 yo F with h/o Parkinson's, orthostatic, hypotension, SSS s/p pacemaker, a. fib (chronic) , prepyloric ulcer and GI bleed in 11/01 ( coumadin was stopped at this time) presented with left sided weakness, hemineglect and R gaze preference on 03/12/17. 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 Pt was transferred to [facility] on 03/16/17. - Patient Problems (1) CVA (cerebral vascular accident) Comment: cont on ASA and statin. Awaiting CT brain report prior to starting Eliquis and d/c ASA. (2) Orthostatic hypotension Comment: One episode today. due to marginal rate control of a. fib, would prefer not to lower the dose of metoprolol. cont Fludrocortisone Cont PT. suspect pt 's symptoms of orthostasis will improve with time. (3) GI (gastrointestinal bleed) Comment: Resolved in 10/2016, due to prepyloric ulcer Continue PPI and carafate Safety of anticoagulation d/w Dr. Lee. Pt can be placed on anticoagulation once her stool is heme neg (noted neg on 03/16/17) D/w Dr. Baker who recommended repeat CT on 03/17/17 and anticoagulation with Eliquis(less reported GI bleeding side effects). will likely start Eliquis tonight .Awaiting official CT read (4) A-fib Comment: Cont home lopressor rate controlled (5) Hypertension Comment: Continue metoprolol. mild HTN noted occasionally, but acceptable in this pt with h/o orthostatic hypotension and h/o syncope (6) Dyslipidemia Comment: cont lipitor (7) Parkinsons Comment: Continue Sinemet Status and Disposition: continuation of medical management of pt in [facility]. Thank you, will follow on daily basis
[2017-03-17] MEDS: Enoxaparin(*) 40 MG/0.4 ML SYR SUBCUT SCH (12:08)
--- NOTE | 2017-03-17 12:14 | RAD ---
INDICATION: Stroke evaluate for hemorrhage. COMPARISON: Comparison is made with a prior CT of the brain from March 12, 2017. TECHNIQUE: Contiguous axial sections of the brain were obtained from the skull base to the vertex without contrast. FINDINGS: There is a moderate size area of encephalomalacia present within the right temporal lobe most consistent with an old infarct. There is a new focal area of decreased attenuation present in the posterior right parietal lobe with mild local mass effect with effacement of surrounding sulci consistent with an acute infarct. There is no gross evidence for hemorrhage. There are multiple focal areas of decreased attenuation present within the subcortical and periventricular white matter most consistent with mild to moderate chronic small vessel ischemic changes. No other focal abnormality is seen. No significant focal osseous abnormality is seen. The visualized portion of the paranasal sinuses and mastoid air cells appear clear. IMPRESSION: 1. FINDINGS CONSISTENT WITH AN ACUTE INFARCT IN THE POSTERIOR RIGHT PARIETAL LOBE WITH MILD LOCAL MASS EFFECT. THERE IS NO GROSS EVIDENCE FOR HEMORRHAGE. 2. MODERATE SIZE AREA OF ENCEPHALOMALACIA IN THE RIGHT TEMPORAL LOBE MOST CONSISTENT WITH AN OLD INFARCT.
[2017-03-17] MEDS: Atorvastatin* 40 MG TAB PO SCH (16:02)
[2017-03-17] MEDS: QUEtiapine TAB* 25 MG PO SCH (20:49)
[2017-03-17] MEDS: Senna TAB PO SCH (22:24)
[2017-03-18] MEDS: Acetaminophen TAB* 325 MG PO PRN (03:28)
[2017-03-18] MEDS: Omeprazole CAP* 20 MG PO SCH ×2 (05:52→16:19)
[2017-03-18] MEDS: Sucralfate TAB* 1 GM PO SCH ×4 (05:52→21:30)
[2017-03-18] MEDS: Metoprolol Tartrate TAB* 50 mg PO SCH ×2 (09:05→21:29)
[2017-03-18] MEDS: Ferrous Sulfate TAB* 325 MG PO SCH (09:05)
[2017-03-18] MEDS: Fludrocortisone Acetate TAB* 0.1 MG PO SCH (09:05)
[2017-03-18] MEDS: Aspirin EC Low Dose* 81 MG TAB.EC PO SCH (09:06)
[2017-03-18] MEDS: Carbidopa/Levodop 25/100 MG TAB(*) PO SCH ×4 (09:06→21:27)
[2017-03-18] MEDS: Docusate CAP* 100 MG PO SCH ×2 (09:07→21:31)
--- NOTE | 2017-03-18 12:30 | PMRUTEAM ---
PMRU: Goals Current Status: Nursing: Current Status Skin Deviations [L Forearm] Bruise Bladder Current Status voiding on bsc Bowel Current Status last bm this am colace held Nutrition Current Status appetite good Medication Current Status needs reinforcement Physical Therapy: Current Status Bed Mobility Assistance Min Assist Transfer Moblility Assistance min assist Transfer/Bed Mobility Rolling Walker,Railings Recommended Devices Ambulation Assistance mod A 15ft Ambulation Assistive Devices Rolling Walker Occupational Therapy: Current Status Upper Body Dressing Supervision Upper Body Dressing Progress set-up Lower Body Dressing Min Assist Lower Body Dressing Progress min A to pull up pants Bathing Min Assist Bathing Progress min A to wash buttocks and lower legs Toileting Min Assist Toileting Progress min A for clothing management in standing Toilet Transfer Min Assist with cues Toilet Transfer Progress min Ax2 for SPT Shower Transfer Min Assist Shower Transfer Progress min A for SPT Eating Supervision Eating Progress set-up d/t visual deficits Rec Therapy: Current Status Summary of Assessment and New admission - pt. was visiting with family. Clinical Impression Will introduce RT services and complete RT assessment on 03/18/17. Social Work: Current Status Discharge Plan return home with home care svs and family support Potential for Family Training TBD Anticipated Discharge Home Destination Discharge With home care svs and family support Nutrition: Current Status Monitoring Pt s/p CVA; admitted to PMRU. Intake ranging from 10-100% of meals; requiring food cut and containers opened at meals. No noted difficulty chewing/swallowing per nursing assessments. BMs . Labs unremarkable. Regular diet remains appropriate at this time. SPEECH CURRENT STATUS: Moderate cues for left tasks. Money management 60% accuracy. Impaired time management. Goals: Physical Therapy: Initial Goals Bed Mobility Assistance Independent Transfer Mobility Assistance Independent Transfer/Bed Mobility Rolling Walker,Railings Recommended Devices Ambulation Independent Ambulation Recommended Devices Rolling Walker Ambulation Distance 150 Stairs Assistance Independent Stair Recommended Devices Two Rails Number of Stairs 5 Occupational Therapy: Initial Goals Goals to be Completed in (Days 14-21 ) Upper Body Bathing Routine Independent Lower Body Bathing Routine Modified Independent with Upper Body Dressing Routine Independent Lower Body Dressing Routine Modified Independent with Toilet Hygeine and Clothing Modified Independent with Management Routine Toilet Transfer Routine Modified Independent with Step-In Shower Transfer Modified Independent with Routine Tub Transfer Routine Modified Independent with Functional Transfers for ADL Modified Independent with Grooming Routine Independent Nursing: Goals Bladder Goal independent Bowel Goal independent Nutrition Goal eating 100% of all meals Medication Goal supervision Nutrition: Goals Intervention Goals 1. Intake will be adequate to meet needs to maintain stable wt 2. Pt will maintain regular bowel pattern without constipation/diarrhea Speech: Goals Speech Goal 1 Cognitive-linguistic deficits Goal 1 Comments LTG: The patient will complete functional cognitive-linguistic tasks for increased safety, function and independence for daily living tasks at 90% accuracy. STGs: 1. The patient will complete functional left visual attention for reading and writing tasks at 90% accuracy with min cues. 2. Ongoing cognitive-linguistic assessment with updates to POC as warranted. Social Work: Goals Discharge Plan return home with home care svs and family support Potential for Family Training TBD Anticipated Discharge Home Destination Discharge With home care svs and family support Care Plan: Care Plan ADL's - Improve/Maintain Start: 03/17/17 15:21 Freq: QSHIFT Status: Active Target: Activity Type Activity Date Activity User E-Sign Co-Sign Detail Recorded Client Recorded Date Recorded By Document 03/17/17 15:21 [id number] 03/17/17 15:22 [id number] 03/17/17 15:21 PMRU Outcome: ADL's/ADL Transfers Orders/Interventions Occupational Therapy Evaluation & Treatment Communication Tool in Patient Room Device No Patient to receive OT 5x/wk for 60-120 Therex min/day Self Care Management Group Therapy Neuromuscular ReEducation UE/LE ADL's with Assist Yes ADL Transfers with Assist Yes Toileting: Transfers,Clothing Management Yes ,Hygeine w/Assist Light Kitchen/Laundry w/Assist Yes Progression Toward Outcome/Goals Progressing Outcome/Goals Met Pt progressing toward OT goals . Pt completing functional transfers with min Ax2. Communication-Improve/Maintain Start: 03/17/17 13:35 Freq: QSHIFT Status: Active Target: Activity Type Activity Date Activity User E-Sign Co-Sign Detail Recorded Client Recorded Date Recorded By Document 03/18/17 02:17 [id number] 03/18/17 02:19 [id number] 03/18/17 02:17 PMRU Outcome: Communication/Cognitive Status Other Outcomes/Goals The patient will complete functional cognitive- linguistic tasks at 90% accuracy for improved safety , function and independence for daily living tasks. /GI-Improve/Maintain Start: 03/17/17 22:26 Freq: QSHIFT Status: Active Target: Activity Type Activity Date Activity User E-Sign Co-Sign Detail Recorded Client Recorded Date Recorded By Document 03/18/17 11:36 [id number] 03/18/17 11:37 [id number] 03/18/17 11:36 PMRU Outcome: Genitourinary/ Gastrointestinal Genitourinary- Outcome/Goals Maintain/ Achieve Urinary Continence Maintain/ Achieve Adequate Urinary Output Remain Free of Hospital- Acquired UTI Gastrointestinal-Outcome/Goals Maintain/ Achieve Bowel Regularity in Accordance with Pt's Baseline Prevent Constipation Laxatives as Ordered Progression Toward Outcome/Goals - Progressing Progression Toward Outcome/Goals - GI Progressing Mobility- Improve/Maintain Start: 03/17/17 11:56 Freq: QSHIFT Status: Active Target: Activity Type Activity Date Activity User E-Sign Co-Sign Detail Recorded Client Recorded Date Recorded By Document 03/17/17 11:57 [id number] 03/17/17 11:58 [id number] 03/17/17 11:57 PMRU Outcome: Mobility Physical Therapy Evaluation and Yes Treatment Activity OOB with Assistance Yes WBAT Yes Device Yes Assistance Yes Patient to be seen 5x/wk for 60-120 min/ Therex day for: Mobility Training Gait Training Balance Outcome/Goals Maintain/ Achieve Baseline Mobility Status Improve Mobility Status Demonstrates Proper Use of Assistive Devices Free from Complications of Immobility Bed Mobility Yes Transfers Yes Gait x ft Yes Up/Down Stairs Yes With HEP Yes Neurological- Improve/Maintain Start: 03/17/17 22:26 Freq: QSHIFT Status: Active Target: Activity Type Activity Date Activity User E-Sign Co-Sign Detail Recorded Client Recorded Date Recorded By Document 03/18/17 11:36 [id number] 03/18/17 11:37 [id number] 03/18/17 11:36 PMRU Outcome: Neurological Weakness/Aphasia Weakness Left Side Outcome/Goals Maintain/ Achieve Baseline Neurological Status Improve Neurological Status Maintain/ Improve Strength/ROM Progression Toward Outcome/Goals Progressing Nutrition/Swallowing- Improve/Maintain Start: 03/17/17 22:26 Freq: QSHIFT Status: Active Target: Activity Type Activity Date Activity User E-Sign Co-Sign Detail Recorded Client Recorded Date Recorded By Document 03/18/17 02:17 [id number] 03/18/17 02:19 [id number] 03/18/17 02:17 PMRU Outcome: Nutrition/Swallowing Outcome/Goals Demonstrates Adequate Hydration/ Prevents Dehydration Maintain/ Improve Nutritional Status Pain/Comfort- Improve/Maintain Start: 03/17/17 22:26 Freq: QSHIFT Status: Active Target: Activity Type Activity Date Activity User E-Sign Co-Sign Detail Recorded Client Recorded Date Recorded By Document 03/18/17 11:36 [id number] 03/18/17 11:37 [id number] 03/18/17 11:36 PMRU Outcome: Pain/Comfort Outcome/Goals Demonstrates Knowledge and Use of Available Comfort Measures Maintain Comfort Level Allowing Patient to Fully Participate in Rehab Progression Toward Outcome/Goals Progressing Outcome/Goals Met Comment no complaint of pain so far this shift Respiratory - Improve/Maintain Start: 03/17/17 22:26 Freq: QSHIFT Status: Active Target: Activity Type Activity Date Activity User E-Sign Co-Sign Detail Recorded Client Recorded Date Recorded By Document 03/18/17 11:36 [id number] 03/18/17 11:37 [id number] 03/18/17 11:36 PMRU Outcome: Respiratory Does Patient Have a Trach No Outcome/Goals Maintain/ Improve O2 Sat per MD Order Maintain/ Improve Activity Tolerance Prevent Pneumonia/ Atelectasis Progression Toward Outcome/Goals Progressing Safety- Improve/Maintain Start: 03/17/17 22:26 Freq: QSHIFT Status: Active Target: Activity Type Activity Date Activity User E-Sign Co-Sign Detail Recorded Client Recorded Date Recorded By Document 03/18/17 11:36 [id number] 03/18/17 11:37 [id number] 03/18/17 11:36 PMRU Outcome: Safety Outcome/Goals Remain Free of Injury or Harm Cooperates with Safety Measures for Least Restrictive Environment Prevent Falls/ Injury Progression Toward Outcome/Goals Progressing Outcome/Goals Met Comment Pa in place Skin- Improve/Maintain Start: 03/17/17 22:26 Freq: QSHIFT Status: Active Target: Activity Type Activity Date Activity User E-Sign Co-Sign Detail Recorded Client Recorded Date Recorded By Document 03/18/17 11:36 [id number] 03/18/17 11:37 [id number] 03/18/17 11:36 PMRU Outcome: Skin Skin Risk Level Medium Skin Orders Turn/Position q2hr While in Bed Outcome/Goals Maintain/ Improve Skin Intergrity Progression Toward Outcome/Goals Progressing Medicine Note: Length of Stay: [3 weeks] Anticipated Discharge Destination: Home Tentative Discharge Date: [04/08/17] Discharged to: [home]
[2017-03-18] MEDS: Enoxaparin(*) 40 MG/0.4 ML SYR SUBCUT SCH (13:51)
[2017-03-18] MEDS: Atorvastatin* 40 MG TAB PO SCH (16:19)
[2017-03-18] MEDS: QUEtiapine TAB* 25 MG PO SCH (21:28)
[2017-03-18] MEDS: Senna TAB PO SCH (21:30)
[2017-03-19] MEDS: Omeprazole CAP* 20 MG PO SCH ×2 (05:17→16:23)
[2017-03-19] MEDS: Sucralfate TAB* 1 GM PO SCH ×4 (05:17→20:28)
[2017-03-19] MEDS: Ferrous Sulfate TAB* 325 MG PO SCH (08:22)
[2017-03-19] MEDS: Metoprolol Tartrate TAB* 50 mg PO SCH ×2 (08:22→20:28)
[2017-03-19] MEDS: Fludrocortisone Acetate TAB* 0.1 MG PO SCH (08:22)
[2017-03-19] MEDS: Aspirin EC Low Dose* 81 MG TAB.EC PO SCH (08:22)
[2017-03-19] MEDS: Carbidopa/Levodop 25/100 MG TAB(*) PO SCH ×4 (08:22→20:28)
[2017-03-19] MEDS: Docusate CAP* 100 MG PO SCH ×2 (08:24→20:24)
[2017-03-19] MEDS ORDERED: QUEtiapine TAB* 25 MG PO PRN (13:34)
--- NOTE | 2017-03-19 14:13 | PN ---
Subjective Date of Service: 03/19/17 Interval History: Pt feels well. still c/o L weakness. Objective Active Medications: Acetaminophen (Tylenol Tab*) 650 mg PO Q4H PRN PRN Reason: FEVER > 101 Last Admin: 03/18/17 03:28 Dose: 650 mg Al Hydrox/Mg Hydrox/Simethicone (Maalox Plus*) 30 ml PO Q6H PRN PRN Reason: INDIGESTION Aspirin (Aspirin Ec Low Dose*) 81 mg PO DAILY [facility] Last Admin: 03/19/17 08:22 Dose: 81 mg Atorvastatin Calcium (Lipitor*) 40 mg PO 1700 [facility] Last Admin: 03/18/17 16:19 Dose: 40 mg Bisacodyl (Dulcolax Supp*) 10 mg [place] DAILY PRN PRN Reason: CONSTIPATION Carbidopa/Levodopa (Sinemet 25/100 Tab(*)) 2 tab PO 1200,1600,2100 [facility] Last Admin: 03/19/17 11:39 Dose: 2 tab Carbidopa/Levodopa (Sinemet 25/100 Tab(*)) 2.5 tab PO 0800 [facility] Last Admin: 03/19/17 08:22 Dose: 2.5 tab Docusate Sodium (Colace Cap*) 100 mg PO BID [facility] Last Admin: 03/19/17 08:24 Dose: Not Given Enoxaparin Sodium (Lovenox(*)) 40 mg SUBCUT Q24H [facility] Last Admin: 03/18/17 13:51 Dose: 40 mg Ferrous Sulfate (Ferrous Sulfate Tab*) 325 mg PO DAILY [facility] Last Admin: 03/19/17 08:22 Dose: 325 mg Fludrocortisone Acetate (Florinef Tab*) 0.1 mg PO DAILY [facility] Last Admin: 03/19/17 08:22 Dose: 0.1 mg Metoprolol Tartrate (Lopressor Tab*) 50 mg PO BID [facility] Last Admin: 03/19/17 08:22 Dose: 50 mg Omeprazole (Prilosec Cap*) 20 mg PO 0700,1600 [facility] Last Admin: 03/19/17 05:17 Dose: 20 mg Polyethylene Glycol/Electrolytes (Miralax*) 17 gm PO DAILY PRN PRN Reason: CONSTIPATION Quetiapine Fumarate (Seroquel Tab*) 12.5 mg PO BEDTIME PRN PRN Reason: AGITATION Senna (Senokot Tab*) 2 tab PO BEDTIME [facility] Last Admin: 03/18/17 21:30 Dose: Not Given Sucralfate (Carafate*) 1 gm PO 0600,1100,1600,2100 [facility] Last Admin: 03/19/17 11:39 Dose: 1 gm Vital Signs 03/18/17 03/19/17 03/19/17 15:49 05:29 08:00 Temperature 100.0 F 97.9 F Pulse Rate 90 95 Respiratory 20 16 18 Rate Blood Pressure 140/80 155/85 (mmHg) O2 Sat by Pulse 99 100 Oximetry Oxygen Devices in Use Now: None Appearance: 77 yo F in nAd, AAOx3 Eyes: No Scleral Icterus, PERRLA Ears/Nose/Mouth/Throat: NL Teeth, Lips, Gums, Mucous Membranes Moist Neck: NL Appearance and Movements; NL JVP, Trachea Midline Respiratory: Symmetrical Chest Expansion and Respiratory Effort, Clear to Auscultation Cardiovascular: NL Sounds; No Murmurs; No JVD, - - irregular Abdominal: NL Sounds; No Tenderness; No Distention, No Hepatosplenomegaly Lymphatic: No Cervical Adenopathy Extremities: No Edema, No Clubbing, Cyanosis Skin: No Rash or Ulcers, No Nodules or Sclerosis Neurological: Alert and Oriented x 3, - - left UE and LE at 4+/5. left sided numbness noted. R side gaze preference -improving. R homonymous inferior quadrantanopia present Result Diagrams: 03/17/17 06:22 03/17/17 06:22 Assess/Plan/Problems-Billing Assessment: 77 yo F with h/o Parkinson's, orthostatic, hypotension, SSS s/p pacemaker, a. fib (chronic) , prepyloric ulcer and GI bleed in 11/01 ( coumadin was stopped at this time) presented with left sided weakness, hemineglect and R gaze preference on 03/12/17. 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 Pt was transferred to [facility] on 03/16/17. - Patient Problems (1) CVA (cerebral vascular accident) Comment: cont on ASA and statin. CT brain on 03/18/17 d/w Dr. Friedman who will see pt in consult. For now the neurology recommendation was not to start anticoagulation yet. (2) Orthostatic hypotension Comment: One episode on 03/17/17. due to marginal rate control of a. fib, would prefer not to lower the dose of metoprolol. cont Fludrocortisone Cont PT. (3) GI (gastrointestinal bleed) Comment: Resolved in 10/2016, due to prepyloric ulcer Continue PPI and carafate Safety of anticoagulation d/w Dr. Lee. Pt can be placed on anticoagulation once her stool is heme neg (noted neg on 03/16/17) Pt is to be started on Eliquis once neurology OK'es it. (4) A-fib Comment: Cont home lopressor rate controlled (5) Hypertension Comment: Continue metoprolol. mild HTN noted occasionally, but acceptable in this pt with h/o orthostatic hypotension and h/o syncope (6) Dyslipidemia Comment: cont lipitor (7) Parkinsons Comment: Continue Sinemet Status and Disposition: continuation of medical management of pt in [facility]. Thank you, will follow
[2017-03-19] MEDS: Atorvastatin* 40 MG TAB PO SCH (16:21)
[2017-03-19] MEDS: Enoxaparin(*) 40 MG/0.4 ML SYR SUBCUT SCH (16:23)
[2017-03-19] MEDS: Senna TAB PO SCH (20:24)
[2017-03-20] MEDS: Acetaminophen TAB* 325 MG PO PRN (02:26)
[2017-03-20] MEDS: Omeprazole CAP* 20 MG PO SCH ×2 (05:24→15:46)
[2017-03-20] MEDS: Sucralfate TAB* 1 GM PO SCH ×4 (05:25→19:43)
[2017-03-20] MEDS: Aspirin EC Low Dose* 81 MG TAB.EC PO SCH (08:20)
[2017-03-20] MEDS: Ferrous Sulfate TAB* 325 MG PO SCH (08:20)
[2017-03-20] MEDS: Metoprolol Tartrate TAB* 50 mg PO SCH ×2 (08:20→20:43)
[2017-03-20] MEDS: Fludrocortisone Acetate TAB* 0.1 MG PO SCH (08:20)
[2017-03-20] MEDS: Docusate CAP* 100 MG PO SCH ×3 (08:20→20:43)
[2017-03-20] MEDS: Carbidopa/Levodop 25/100 MG TAB(*) PO SCH ×4 (08:20→20:43)
[2017-03-20] MEDS: Enoxaparin(*) 40 MG/0.4 ML SYR SUBCUT SCH (12:00)
[2017-03-20] MEDS: Atorvastatin* 40 MG TAB PO SCH (15:46)
--- NOTE | 2017-03-20 17:06 | PN ---
Subjective Date of Service: 03/20/17 Interval History: Pt feels well. Left sided weakness improving. Objective Active Medications: Acetaminophen (Tylenol Tab*) 650 mg PO Q4H PRN PRN Reason: FEVER > 101 Last Admin: 03/20/17 02:26 Dose: 650 mg Hydrocodone Bitart/Acetaminophen ([place] 5-325 Tab*) 0.5 tab PO Q4H PRN PRN Reason: PAIN Al Hydrox/Mg Hydrox/Simethicone (Maalox Plus*) 30 ml PO Q6H PRN PRN Reason: INDIGESTION Aspirin (Aspirin Ec Low Dose*) 81 mg PO DAILY [facility] Last Admin: 03/20/17 08:20 Dose: 81 mg Atorvastatin Calcium (Lipitor*) 40 mg PO 1700 [facility] Last Admin: 03/20/17 15:46 Dose: 40 mg Bisacodyl (Dulcolax Supp*) 10 mg [place] DAILY PRN PRN Reason: CONSTIPATION Carbidopa/Levodopa (Sinemet 25/100 Tab(*)) 2 tab PO 1200,1600,2100 [facility] Last Admin: 03/20/17 15:45 Dose: 2 tab Carbidopa/Levodopa (Sinemet 25/100 Tab(*)) 2.5 tab PO 0800 [facility] Last Admin: 03/20/17 08:20 Dose: 2.5 tab Docusate Sodium (Colace Cap*) 100 mg PO BID [facility] Last Admin: 03/20/17 08:22 Dose: Not Given Enoxaparin Sodium (Lovenox(*)) 40 mg SUBCUT Q24H [facility] Last Admin: 03/20/17 12:00 Dose: 40 mg Ferrous Sulfate (Ferrous Sulfate Tab*) 325 mg PO DAILY [facility] Last Admin: 03/20/17 08:20 Dose: 325 mg Fludrocortisone Acetate (Florinef Tab*) 0.1 mg PO DAILY [facility] Last Admin: 03/20/17 08:20 Dose: 0.1 mg Metoprolol Tartrate (Lopressor Tab*) 50 mg PO BID [facility] Last Admin: 03/20/17 08:20 Dose: 50 mg Omeprazole (Prilosec Cap*) 20 mg PO 0700,1600 [facility] Last Admin: 03/20/17 15:46 Dose: 20 mg Polyethylene Glycol/Electrolytes (Miralax*) 17 gm PO DAILY PRN PRN Reason: CONSTIPATION Quetiapine Fumarate (Seroquel Tab*) 12.5 mg PO BEDTIME PRN PRN Reason: AGITATION Senna (Senokot Tab*) 2 tab PO BEDTIME [facility] Last Admin: 03/19/17 20:24 Dose: Not Given Sucralfate (Carafate*) 1 gm PO 0600,1100,1600,2100 [facility] Last Admin: 03/20/17 15:45 Dose: 1 gm Vital Signs 03/19/17 03/20/17 03/20/17 19:46 00:25 04:43 Temperature 99.0 F Pulse Rate 76 Respiratory 20 20 Rate Blood Pressure 124/77 (mmHg) O2 Sat by Pulse 100 99 Oximetry 03/20/17 03/20/17 08:24 15:56 Temperature 99.5 F Pulse Rate 53 Respiratory 18 Rate Blood Pressure 143/66 (mmHg) O2 Sat by Pulse 99 99 Oximetry Oxygen Devices in Use Now: None Appearance: 77 yo F in nAD, AAOx3 Eyes: No Scleral Icterus, PERRLA Ears/Nose/Mouth/Throat: NL Teeth, Lips, Gums, Mucous Membranes Moist Neck: NL Appearance and Movements; NL JVP, Trachea Midline Respiratory: Symmetrical Chest Expansion and Respiratory Effort, Clear to Auscultation Cardiovascular: NL Sounds; No Murmurs; No JVD, - - irregular Abdominal: NL Sounds; No Tenderness; No Distention, No Hepatosplenomegaly Lymphatic: No Cervical Adenopathy Extremities: No Clubbing, Cyanosis Skin: No Nodules or Sclerosis, - - ecchymoses b/l UE after venipunctures Neurological: Alert and Oriented x 3, - - left sided 4+/5 UE and LE weakness, R inferior quadrantanopia still present Result Diagrams: 03/17/17 06:22 03/17/17 06:22 Assess/Plan/Problems-Billing Assessment: 77 yo F with h/o Parkinson's, orthostatic, hypotension, SSS s/p pacemaker, a. fib (chronic) , prepyloric ulcer and GI bleed in 11/01 ( coumadin was stopped at this time) presented with left sided weakness, hemineglect and R gaze preference on 03/12/17. 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 Pt was transferred to [facility] on 03/16/17. - Patient Problems (1) CVA (cerebral vascular accident) Comment: cont on ASA and statin. CT brain on 03/18/17 d/w Dr. Friedman who will see pt in consult. For now the neurology recommendation was not to start anticoagulation yet. Dr. Friedman will see pt in consult. F/u CT tomorrow. (2) Orthostatic hypotension Comment: One episode on 03/17/17. due to marginal rate control of a. fib, would prefer not to lower the dose of metoprolol. cont Fludrocortisone Cont PT. (3) GI (gastrointestinal bleed) Comment: Resolved in 10/2016, due to prepyloric ulcer Continue PPI and carafate Safety of anticoagulation d/w Dr. Lee. Pt can be placed on anticoagulation once her stool is heme neg (noted neg on 03/16/17) Pt is to be started on Eliquis once neurology OK'es it.(5 mg BID as per cardiology recommendation) (4) A-fib Comment: Cont home lopressor rate controlled (5) Hypertension Comment: Continue metoprolol. mild HTN noted occasionally, but acceptable in this pt with h/o orthostatic hypotension and h/o syncope (6) Dyslipidemia Comment: cont lipitor (7) Parkinsons Comment: Continue Sinemet Status and Disposition: continuation of medical management of pt in PMRU. Thank you. will sign off. Please call if needed, Dr. Florian will be on service beginning 03/21/16
[2017-03-20] MEDS: Senna TAB PO SCH (20:43)
[2017-03-21] MEDS: Acetaminophen TAB* 325 MG PO PRN (03:52)
[2017-03-21] MEDS: Sucralfate TAB* 1 GM PO SCH ×4 (05:29→22:25)
[2017-03-21] MEDS: HYDROcodone/ACETAMIN 5-325 MG* 1 TAB PO PRN (05:30)
[2017-03-21] MEDS: Omeprazole CAP* 20 MG PO SCH ×2 (05:31→16:29)
[2017-03-21] MEDS: Aspirin EC Low Dose* 81 MG TAB.EC PO SCH (08:41)
[2017-03-21] MEDS: Docusate CAP* 100 MG PO SCH ×3 (08:41→20:31)
[2017-03-21] MEDS: Metoprolol Tartrate TAB* 50 mg PO SCH ×2 (08:41→20:30)
[2017-03-21] MEDS: Ferrous Sulfate TAB* 325 MG PO SCH (08:41)
[2017-03-21] MEDS: Carbidopa/Levodop 25/100 MG TAB(*) PO SCH ×4 (08:41→20:30)
[2017-03-21] MEDS: Fludrocortisone Acetate TAB* 0.1 MG PO SCH (08:42)
--- NOTE | 2017-03-21 09:17 | RAD ---
Indication: Evaluate for intracranial hemorrhage. CT of the brain was performed without IV contrast. Ventricular structures are midline. No midline shift is noted. The extra-axial spaces are unremarkable. There is prior right posterior temporal lobe infarct. Additionally there is some sulcal effacement of the right posterior parietal lobe consistent with evolving infarct. Overall no changes noted since previous exam. Left cerebral hemisphere is otherwise unremarkable. IMPRESSION: Previously involving infarct right posterior parietal lobe. Encephalomalacia right posterior temporal lobe. No hemorrhage is noted.
[2017-03-21 10:41] LABS: Urine Bilirubin Negative (Negative); Urine Glucose Negative (Negative); Urine Nitrite Negative (Negative)
[2017-03-21] MEDS: Enoxaparin(*) 40 MG/0.4 ML SYR SUBCUT SCH (11:41)
[2017-03-21] MEDS: Atorvastatin* 40 MG TAB PO SCH (16:29)
[2017-03-21] MEDS: Senna TAB PO SCH (20:31)
--- NOTE | 2017-03-22 03:44 | PN ---
FOLLOWUP NOTE: DATE: 03/21/17 Dr. Menendez called for a followup regarding repeat CT scan and clearance to proceed with Eliquis. Previous consultations by Dr. Baker and Dr. Sequeira were reviewed, as well as I reviewed CT brain scans directly. Mrs. Phelan had been admitted to hospital with left-sided weakness, remote history of right MCA stroke in the setting of atrial fibrillation, was seen by Dr. Baker originally on 03/12/17. This occurred in the setting of a history of orthostatic hypotension and history of GI bleed and ulcer. Her GI bleed was on Coumadin. At the time of discharge, it was planned to start her on Eliquis 5 mg b.i.d. in approximately 5 days as long as CT did not show evidence of bleed. She had a CT earlier this week that was questioned to have blood versus cortical [place] and repeat CT was performed this morning. The CT this morning clearly showed evolving ischemic stroke in the posterior right parietal region, with no evidence of bleed. Dr. Seuqeira had previously suggested 5 mg of Eliquis b.i.d. The patient was visited today and she indicates continued improvement in her symptoms. She expresses concern regarding new medications as she was on Tikosyn in the past, it costs 300 dollars, and the cost competed with her ability to buy groceries. Her vitals were reviewed and she has had some fluctuating hypertension as high as 188/106. In general, her blood pressure had been improved. IMPRESSION: Liudmila Phelan is a 77-year-old woman with repeat stroke in the setting of atrial fibrillation. Certainly for prevention of stroke, anticoagulation is appropriate. She has been cleared from a GI perspective to proceed with anticoagulation. The plan had been to start her on Eliquis [address] of the brain shows no evidence of bleed. I would, however, encourage using 2.5 mg given her weight of 124 pounds, approximately 56 kg, and her age, which is 77. Her creatinine is 1. There are risks versus benefits in the setting of treatment. Of large concern to her is the cost, and I have spoken to Dr. Menendez about this who will get Social Work involved. Her blood pressure recently has been elevated and this needs to be watched closely. If further neurologic input is needed, please feel free to call. [id number]/[facility] #: [id number] MTDD
[2017-03-22] MEDS: HYDROcodone/ACETAMIN 5-325 MG* 1 TAB PO PRN (04:04)
[2017-03-22] MEDS: Sucralfate TAB* 1 GM PO SCH ×4 (05:40→20:29)
[2017-03-22] MEDS: Omeprazole CAP* 20 MG PO SCH ×2 (07:32→15:58)
[2017-03-22] MEDS: Apixaban* 5 MG TAB PO SCH ×2 (08:06→20:28)
[2017-03-22] MEDS: Carbidopa/Levodop 25/100 MG TAB(*) PO SCH ×4 (08:07→20:30)
[2017-03-22] MEDS: Metoprolol Tartrate TAB* 50 mg PO SCH ×2 (08:08→20:31)
[2017-03-22] MEDS: Ferrous Sulfate TAB* 325 MG PO SCH (08:08)
[2017-03-22] MEDS: Fludrocortisone Acetate TAB* 0.1 MG PO SCH (08:08)
[2017-03-22] MEDS: Docusate CAP* 100 MG PO SCH ×2 (08:08→20:21)
[2017-03-22] MEDS: Analgesic BALM* 114 GM TOPICAL SCH ×2 (12:05→20:31)
[2017-03-22] MEDS: Atorvastatin* 40 MG TAB PO SCH (16:57)
[2017-03-22] MEDS: Senna TAB PO SCH (20:21)
[2017-03-23] MEDS: HYDROcodone/ACETAMIN 5-325 MG* 1 TAB PO PRN ×2 (05:13→21:28)
[2017-03-23] MEDS: Sucralfate TAB* 1 GM PO SCH ×4 (05:14→19:44)
[2017-03-23] MEDS: Omeprazole CAP* 20 MG PO SCH ×2 (05:14→15:58)
[2017-03-23] MEDS: Carbidopa/Levodop 25/100 MG TAB(*) PO SCH ×4 (08:05→20:33)
[2017-03-23] MEDS: Fludrocortisone Acetate TAB* 0.1 MG PO SCH (09:59)
[2017-03-23] MEDS: Metoprolol Tartrate TAB* 50 mg PO SCH ×2 (09:59→20:33)
[2017-03-23] MEDS: Apixaban* 5 MG TAB PO SCH ×2 (10:00→20:34)
[2017-03-23] MEDS: Analgesic BALM* 114 GM TOPICAL SCH ×2 (10:01→21:23)
[2017-03-23] MEDS: Ferrous Sulfate TAB* 325 MG PO SCH (10:01)
[2017-03-23] MEDS: Docusate CAP* 100 MG PO SCH (10:04)
[2017-03-23] MEDS: Atorvastatin* 40 MG TAB PO SCH (15:56)
[2017-03-24] MEDS: HYDROcodone/ACETAMIN 5-325 MG* 1 TAB PO PRN ×2 (03:30→13:35)
[2017-03-24] MEDS: Omeprazole CAP* 20 MG PO SCH ×2 (06:39→17:14)
[2017-03-24] MEDS: Sucralfate TAB* 1 GM PO SCH ×4 (06:39→21:30)
[2017-03-24 07:51] LABS: Hematocrit 34 % (35-47); Hemoglobin 11.2 g/dl (12.0-16.0); Mean Corpuscular HGB Conc 33 g/dl (31-36); Mean Corpuscular Hemoglobin 30 pg (27-31); Mean Corpuscular Volume 92 fL (80-97); Mean Platelet Volume 9 um3 (7.4-10.4); Red Blood Count 3.69 10^6/ul (4.0-5.4); Red Cell Distribution Width 18 % (10.5-15); White Blood Count 7.5 10^3/ul (3.5-10.8)
[2017-03-24 07:58] LABS: Albumin 3.5 g/dL (3.2-5.2); BUN/Creatinine Ratio 22.9 (8-20); Calcium 9.1 mg/dL (8.6-10.3); EGFR African American 85.3 (>60); EGFR Non-African American 66.3 (>60); Globulin 2.7 g/dL (2-4); Potassium 3.6 mmol/L (3.5-5.0); Total Bilirubin 0.6 mg/dL (0.2-1.0); Total Protein 6.2 g/dL (6.4-8.9)
[2017-03-24] MEDS: Analgesic BALM* 114 GM TOPICAL SCH ×2 (08:25→21:34)
[2017-03-24] MEDS: Ferrous Sulfate TAB* 325 MG PO SCH (08:26)
[2017-03-24] MEDS: Metoprolol Tartrate TAB* 50 mg PO SCH ×2 (08:26→21:30)
[2017-03-24] MEDS: Carbidopa/Levodop 25/100 MG TAB(*) PO SCH ×4 (08:26→21:34)
[2017-03-24] MEDS: Apixaban* 5 MG TAB PO SCH ×2 (08:26→21:30)
[2017-03-24] MEDS: Fludrocortisone Acetate TAB* 0.1 MG PO SCH (08:27)
[2017-03-24] MEDS: Atorvastatin* 40 MG TAB PO SCH (17:08)
[2017-03-25] MEDS: HYDROcodone/ACETAMIN 5-325 MG* 1 TAB PO PRN ×3 (02:00→15:54)
[2017-03-25] MEDS: Sucralfate TAB* 1 GM PO SCH ×4 (05:17→21:21)
[2017-03-25] MEDS: Omeprazole CAP* 20 MG PO SCH ×2 (06:20→15:54)
[2017-03-25] MEDS: Ferrous Sulfate TAB* 325 MG PO SCH (08:16)
[2017-03-25] MEDS: Metoprolol Tartrate TAB* 50 mg PO SCH ×2 (08:16→21:21)
[2017-03-25] MEDS: Apixaban* 5 MG TAB PO SCH ×2 (08:16→21:21)
[2017-03-25] MEDS: Fludrocortisone Acetate TAB* 0.1 MG PO SCH (08:17)
[2017-03-25] MEDS: Carbidopa/Levodop 25/100 MG TAB(*) PO SCH ×4 (08:17→21:21)
[2017-03-25] MEDS: Analgesic BALM* 114 GM TOPICAL SCH ×2 (11:52→21:21)
--- NOTE | 2017-03-25 12:47 | PMRUTEAM ---
PMRU: Goals Current Status: Nursing: Current Status Skin Deviations [L Forearm] Bruise Skin Deviation Description [L healing Forearm] Bladder Current Status urinary frequency Bowel Current Status bm x3 03/24/17 Nutrition Current Status appetite good Medication Current Status needs reinforcement. taking [place] for back pain. Physical Therapy: Current Status Bed Mobility Assistance Supervision Transfer Moblility Assistance Supervision Transfer/Bed Mobility Rolling Walker Recommended Devices Ambulation Assistance Supervision Ambulation Assistive Devices Rolling Walker Number of Feet Patient 90' Ambulated Stairs Assistance Supervision Stairs Recommended Devices Two Rails Number of Stairs 5 Occupational Therapy: Current Status Upper Body Dressing Supervision,Contact Guard Assist Upper Body Dressing Progress S if seated. CGA when standing. Lower Body Dressing Contact Guard Assist Lower Body Dressing Progress min A to pull up pants Bathing Contact Guard Assist Bathing Progress min A to wash buttocks and lower legs Toileting Contact Guard Assist Toileting Progress min A for clothing management in standing Toilet Transfer Contact Guard Assist Toilet Transfer Progress min Ax2 for SPT Shower Transfer Contact Guard Assist Shower Transfer Progress min Ax2 for SPT Eating Supervision Eating Progress set-up d/t visual deficits Rec Therapy: Current Status Summary of Assessment and RT assessment is complete and pt. is aware of Clinical Impression services. Pt. engages in leisure sessions regularly. Treatment Goals Pt. will engage in leisure activities while on the unit. Treatment Plan Provide RT services and encourage involvement. Social Work: Current Status Discharge Plan return home with home care svs and family support Potential for Family Training pt's daughter is supportive Anticipated Discharge Home Destination Discharge With return home with home care svs and family support Nutrition: Current Status Monitoring Intake varies from 40-45% of some meals, to 85-90 % of others. Overall appears adequate. Eating independently per meal record. POC glucose low: 65 8/5; WNL (89) am 03/24. Regular BMs noted. No recommendations to make at this time; making adequate progress. Will continue to follow. Speech: Current Status Assessment The patient exhibited slow, steady progress; will benefit from continued skilled SENIOR SPECIALIST services to improve cognitive-linguistic function for increased safety, function and independence for daily living tasks. Goals: Physical Therapy: Initial Goals Bed Mobility Assistance Independent,Supervision Transfer Mobility Assistance Independent,Supervision Transfer/Bed Mobility Rolling Walker,Railings Recommended Devices Ambulation Contact Guard Assist,Min Assist Ambulation Recommended Devices Rolling Walker Ambulation Distance 150 Stairs Assistance Supervision Stair Recommended Devices Two Rails Number of Stairs 5 Physical Therapy: Updated Goals Transfer/Bed Mobility Rolling Walker,Railings Recommended Devices Occupational Therapy: Initial Goals Goals to be Completed in (Days 14-21 ) Upper Body Bathing Routine Independent Lower Body Bathing Routine Modified Independent with Upper Body Dressing Routine Independent Lower Body Dressing Routine Modified Independent with Toilet Hygeine and Clothing Modified Independent with Management Routine Toilet Transfer Routine Modified Independent with Step-In Shower Transfer Modified Independent with Routine Tub Transfer Routine Modified Independent with Functional Transfers for ADL Modified Independent with Grooming Routine Independent Nursing: Goals Bladder Goal independent Bowel Goal independent Nutrition Goal eating 100% of all meals Medication Goal supervision Nutrition: Goals Intervention Goals 1. Intake will be adequate to meet needs to maintain stable wt 2. Pt will maintain regular bowel pattern without constipation/diarrhea Speech: Goals Speech Goal 1 Cognitive-linguistic deficits Goal 1 Comments LTG: The patient will complete functional cognitive-linguistic tasks for increased safety, function and independence for daily living tasks at 90% accuracy. STGs: 1. The patient will complete functional left visual attention for reading and writing tasks at 90% accuracy with min cues. Status: -The patient completed menu by circling desired items with modearte cues for items on left side of page. The patient searched for a phone number in address book requiring max cues. The patient required consistent cues for use of compensatory strategies. Ongoing. 2. Ongoing cognitive-linguistic assessment with updates to POC as warranted. Status: Not directly targeted this date; ongoing. 3. The patient will complete functional sequencing tasks at 80% accuracy. Status: Not directly targeted this date; ongoing. 4. The patient will complete functional money and time management tasks at 80% accuracy. Status as of 03/21/17" Time word problems (verbal): 40% accuracy, no cues; improved to 60% accuracy, with moderate verbal and visual cues. Ongoing. Social Work: Goals Discharge Plan return home with home care svs and family support Potential for Family Training pt's daughter is supportive Anticipated Discharge Home Destination Discharge With return home with home care svs and family support Care Plan: Care Plan ADL's - Improve/Maintain Start: 03/17/17 15:21 Freq: DAILY Status: Active Target: Activity Type Activity Date Activity User E-Sign Co-Sign Detail Recorded Client Recorded Date Recorded By Document 03/21/17 15:17 [id number] 03/21/17 15:18 [id number] 03/21/17 15:17 PMRU Outcome: ADL's/ADL Transfers Orders/Interventions Occupational Therapy Evaluation & Treatment Communication Tool in Patient Room Device No Patient to receive OT 5x/wk for 60-120 Therex min/day Self Care Management Group Therapy Neuromuscular ReEducation UE/LE ADL's with Assist Yes ADL Transfers with Assist Yes Toileting: Transfers,Clothing Management Yes ,Hygeine w/Assist Light Kitchen/Laundry w/Assist Yes Progression Toward Outcome/Goals Progressing Outcome/Goals Met Pt progressing toward OT goals . Pt demonstrating increased indepdence with self care tasks. Pt demonstrating increased strength and coordination of the L UE. Communication-Improve/Maintain Start: 03/17/17 13:35 Freq: DAILY Status: Active Target: Activity Type Activity Date Activity User E-Sign Co-Sign Detail Recorded Client Recorded Date Recorded By Document 03/24/17 15:25 [id number] [email or web address] 03/24/17 15:26 [id number] 03/24/17 15:25 PMRU Outcome: Communication/Cognitive Status Other Outcomes/Goals The patient will complete functional cognitive- linguistic tasks at 90% accuracy for improved safety , function and independence for daily living tasks. Progression Toward Outcomes/Goals Progressing Outcome/Goals Met Comment The patient required consistent cues for menu selections for items on left and for searching for phone numberse in address book with scanning. /GI-Improve/Maintain Start: 03/17/17 22:26 Freq: DAILY Status: Active Target: Activity Type Activity Date Activity User E-Sign Co-Sign Detail Recorded Client Recorded Date Recorded By Document 03/25/17 08:54 [id number] 03/25/17 08:54 [id number] 03/25/17 08:54 PMRU Outcome: Genitourinary/ Gastrointestinal Genitourinary- Outcome/Goals Maintain/ Achieve Urinary Continence Maintain/ Achieve Adequate Urinary Output Remain Free of Hospital- Acquired UTI Gastrointestinal-Outcome/Goals Maintain/ Achieve Bowel Regularity in Accordance with Pt's Baseline Prevent Constipation Laxatives as Ordered Progression Toward Outcome/Goals - Progressing Progression Toward Outcome/Goals - GI Progressing Gastrointestinal-Outcome/Goals Met Prevent Constipation Mobility- Improve/Maintain Start: 03/17/17 11:56 Freq: DAILY Status: Active Target: Activity Type Activity Date Activity User E-Sign Co-Sign Detail Recorded Client Recorded Date Recorded By Document 03/25/17 11:12 [id number] 03/25/17 11:12 [id number] 03/25/17 11:12 PMRU Outcome: Mobility Physical Therapy Evaluation and Yes Treatment Activity OOB with Assistance Yes WBAT Yes Device Yes Assistance Yes Patient to be seen 5x/wk for 60-120 min/ Therex day for: Mobility Training Gait Training Balance Outcome/Goals Maintain/ Achieve Baseline Mobility Status Improve Mobility Status Demonstrates Proper Use of Assistive Devices Free from Complications of Immobility Progression Toward Outcome/Goals Progressing Bed Mobility Yes Transfers Yes Gait x ft Yes Up/Down Stairs Yes With HEP Yes Neurological- Improve/Maintain Start: 03/17/17 22:26 Freq: DAILY Status: Active Target: Activity Type Activity Date Activity User E-Sign Co-Sign Detail Recorded Client Recorded Date Recorded By Document 03/25/17 08:54 [id number] 03/25/17 08:54 [id number] 03/25/17 08:54 PMRU Outcome: Neurological Weakness/Aphasia Weakness Left Side Outcome/Goals Maintain/ Achieve Baseline Neurological Status Improve Neurological Status Maintain/ Improve Strength/ROM Progression Toward Outcome/Goals Progressing Outcome/Goals Met Maintain/ Achieve Baseline Neurological Status Nutrition/Swallowing- Improve/Maintain Start: 03/17/17 22:26 Freq: DAILY Status: Complete Target: Activity Type Activity Date Activity User E-Sign Co-Sign Detail Recorded Client Recorded Date Recorded By Document 03/22/17 08:00 [id number] 03/22/17 16:28 [id number] 03/22/17 08:00 PMRU Outcome: Nutrition/Swallowing Outcome/Goals Demonstrates Adequate Hydration/ Prevents Dehydration Maintain/ Improve Nutritional Status Outcome/Goals Met Demonstrates Adequate Hydration/ Prevents Dehydration Maintain/ Improve Nutritional Status Pain/Comfort- Improve/Maintain Start: 03/17/17 22:26 Freq: DAILY Status: Complete Target: Activity Type Activity Date Activity User E-Sign Co-Sign Detail Recorded Client Recorded Date Recorded By Document 03/25/17 08:54 [id number] 03/25/17 08:54 [id number] 03/25/17 08:54 PMRU Outcome: Pain/Comfort Outcome/Goals Demonstrates Knowledge and Use of Available Comfort Measures Achieves Acceptable Comfort/Pain Level as Determined by Patient/Condit Maintain Comfort Level Allowing Patient to Fully Participate in Rehab Progression Toward Outcome/Goals Progressing Outcome/Goals Met Demonstrates Knowledge and Use of Available Comfort Measures Maintain Comfort Level Allowing Patient to Fully Participate in Rehab Respiratory - Improve/Maintain Start: 03/17/17 22:26 Freq: DAILY Status: Active Target: Activity Type Activity Date Activity User E-Sign Co-Sign Detail Recorded Client Recorded Date Recorded By Document 03/25/17 08:54 [id number] [facility] 03/25/17 08:54 [id number] 03/25/17 08:54 PMRU Outcome: Respiratory Does Patient Have a Trach No Outcome/Goals Maintain/ Improve O2 Sat per MD Order Maintain/ Improve Activity Tolerance Prevent Pneumonia/ Atelectasis Progression Toward Outcome/Goals Progressing Outcome/Goals Met Maintain/ Improve O2 Sat per MD Order Safety- Improve/Maintain Start: 03/17/17 22:26 Freq: DAILY Status: Complete Target: Activity Type Activity Date Activity User E-Sign Co-Sign Detail Recorded Client Recorded Date Recorded By Document 03/25/17 08:54 [id number] [facility] 03/25/17 08:54 [id number] 03/25/17 08:54 PMRU Outcome: Safety Outcome/Goals Remain Free of Injury or Harm Cooperates with Safety Measures for Least Restrictive Environment Prevent Falls/ Injury Progression Toward Outcome/Goals Progressing Outcome/Goals Met Remain Free of Injury or Harm Cooperates with Safety Measures for Least Restrictive Environment Outcome/Goals Met Comment PA in place Skin- Improve/Maintain Start: 03/17/17 22:26 Freq: DAILY Status: Complete Target: Activity Type Activity Date Activity User E-Sign Co-Sign Detail Recorded Client Recorded Date Recorded By Document 03/25/17 08:54 [id number] [employer] 03/25/17 08:54 [id number] 03/25/17 08:54 PMRU Outcome: Skin Skin Risk Level Medium Skin Orders Turn/Position q2hr While in Bed Outcome/Goals Maintain/ Improve Skin Intergrity Progression Toward Outcome/Goals Progressing Outcome/Goals Met Maintain/ Improve Skin Intergrity Free from Decubitus Medicine Note: Length of Stay: 2 weeks Anticipated Discharge Destination: Home Tentative Discharge Date: 04/08/17 Discharged to: Home
[2017-03-25] MEDS: Atorvastatin* 40 MG TAB PO SCH (17:02)
[2017-03-26] MEDS: Sucralfate TAB* 1 GM PO SCH ×4 (05:55→21:33)
[2017-03-26] MEDS: HYDROcodone/ACETAMIN 5-325 MG* 1 TAB PO PRN ×2 (05:55→21:32)
[2017-03-26] MEDS: Carbidopa/Levodop 25/100 MG TAB(*) PO SCH ×5 (08:04→21:32)
[2017-03-26] MEDS: Omeprazole CAP* 20 MG PO SCH ×2 (08:05→17:05)
[2017-03-26] MEDS: Metoprolol Tartrate TAB* 50 mg PO SCH ×2 (08:05→21:32)
[2017-03-26] MEDS: Apixaban* 5 MG TAB PO SCH (08:06)
[2017-03-26] MEDS: Ferrous Sulfate TAB* 325 MG PO SCH (08:06)
[2017-03-26] MEDS: Fludrocortisone Acetate TAB* 0.1 MG PO SCH (08:50)
[2017-03-26] MEDS: Analgesic BALM* 114 GM TOPICAL SCH ×2 (08:50→21:37)
[2017-03-26] MEDS: Apixaban* 2.5 MG TAB PO SCH ×2 (08:51→21:31)
[2017-03-26] MEDS: Atorvastatin* 40 MG TAB PO SCH ×2 (15:26→17:04)
[2017-03-27] MEDS: HYDROcodone/ACETAMIN 5-325 MG* 1 TAB PO PRN ×3 (02:28→21:30)
[2017-03-27] MEDS: Sucralfate TAB* 1 GM PO SCH ×4 (06:04→20:44)
[2017-03-27] MEDS: Omeprazole CAP* 20 MG PO SCH ×2 (06:04→16:05)
[2017-03-27] MEDS: Apixaban* 2.5 MG TAB PO SCH ×2 (08:04→20:43)
[2017-03-27] MEDS: Fludrocortisone Acetate TAB* 0.1 MG PO SCH (08:04)
[2017-03-27] MEDS: Metoprolol Tartrate TAB* 50 mg PO SCH ×2 (08:04→20:43)
[2017-03-27] MEDS: Carbidopa/Levodop 25/100 MG TAB(*) PO SCH ×4 (08:04→20:43)
[2017-03-27] MEDS: Ferrous Sulfate TAB* 325 MG PO SCH (08:05)
[2017-03-27] MEDS: Analgesic BALM* 114 GM TOPICAL SCH ×2 (08:06→20:44)
--- NOTE | 2017-03-27 11:25 | RAD ---
INDICATION: Chest pain with inspiration. Slight shortness of breath. Atrial fibrillation. COMPARISON: March 12, 2017 chest radiograph and September 13, 2015 CT abdomen. TECHNIQUE: Dual energy PA and routine lateral views of the chest were obtained. REPORT: Minimal linear atelectasis or scarring at the LEFT lower lung zone. No alveolar consolidation, suspicious focal pulmonary lesion, pleural effusion, pneumothorax. RIGHT atrial and RIGHT ventricular level pacemaker leads extend from RIGHT chest wall control device. Cardiomegaly. Unremarkable central pulmonary vasculature. Mildly tortuous descending thoracic aorta. IMPRESSION: Cardiomegaly. No acute cardiopulmonary process evident.
[2017-03-27] MEDS: Atorvastatin* 40 MG TAB PO SCH (16:05)
[2017-03-28] MEDS: HYDROcodone/ACETAMIN 5-325 MG* 1 TAB PO PRN ×4 (03:53→23:57)
[2017-03-28] MEDS: Sucralfate TAB* 1 GM PO SCH ×4 (05:06→20:55)
[2017-03-28] MEDS: Omeprazole CAP* 20 MG PO SCH ×2 (05:06→16:08)
[2017-03-28] MEDS: Apixaban* 2.5 MG TAB PO SCH ×2 (07:37→20:55)
[2017-03-28] MEDS: Ferrous Sulfate TAB* 325 MG PO SCH (07:37)
[2017-03-28] MEDS: Fludrocortisone Acetate TAB* 0.1 MG PO SCH (07:38)
[2017-03-28] MEDS: Metoprolol Tartrate TAB* 50 mg PO SCH ×2 (07:38→20:55)
[2017-03-28] MEDS: Carbidopa/Levodop 25/100 MG TAB(*) PO SCH ×4 (07:38→20:56)
[2017-03-28] MEDS: Analgesic BALM* 114 GM TOPICAL SCH ×2 (14:08→20:58)
[2017-03-28] MEDS: Atorvastatin* 40 MG TAB PO SCH (17:49)
[2017-03-29] MEDS: Sucralfate TAB* 1 GM PO SCH ×4 (05:07→19:32)
[2017-03-29] MEDS: HYDROcodone/ACETAMIN 5-325 MG* 1 TAB PO PRN ×2 (05:07→22:14)
[2017-03-29] MEDS: Omeprazole CAP* 20 MG PO SCH ×2 (05:08→16:20)
[2017-03-29] MEDS: Carbidopa/Levodop 25/100 MG TAB(*) PO SCH ×4 (08:52→19:32)
[2017-03-29] MEDS: Ferrous Sulfate TAB* 325 MG PO SCH (08:53)
[2017-03-29] MEDS: Fludrocortisone Acetate TAB* 0.1 MG PO SCH (08:54)
[2017-03-29] MEDS: Apixaban* 2.5 MG TAB PO SCH ×2 (08:54→19:32)
[2017-03-29] MEDS: Metoprolol Tartrate TAB* 50 mg PO SCH ×2 (08:54→19:32)
[2017-03-29] MEDS: Analgesic BALM* 114 GM TOPICAL SCH ×2 (08:55→19:32)
[2017-03-29] MEDS: Atorvastatin* 40 MG TAB PO SCH (17:20)
[2017-03-30] MEDS: HYDROcodone/ACETAMIN 5-325 MG* 1 TAB PO PRN ×2 (04:24→21:09)
[2017-03-30] MEDS: Sucralfate TAB* 1 GM PO SCH ×4 (06:18→21:09)
[2017-03-30] MEDS: Omeprazole CAP* 20 MG PO SCH ×2 (07:29→17:11)
[2017-03-30] MEDS: Ferrous Sulfate TAB* 325 MG PO SCH (08:16)
[2017-03-30] MEDS: Carbidopa/Levodop 25/100 MG TAB(*) PO SCH ×4 (08:16→21:09)
[2017-03-30] MEDS: Fludrocortisone Acetate TAB* 0.1 MG PO SCH (08:16)
[2017-03-30] MEDS: Metoprolol Tartrate TAB* 50 mg PO SCH ×2 (08:16→21:09)
[2017-03-30] MEDS: Apixaban* 2.5 MG TAB PO SCH ×2 (08:16→21:09)
[2017-03-30] MEDS: Analgesic BALM* 114 GM TOPICAL SCH ×2 (08:17→21:09)
[2017-03-30] MEDS: Atorvastatin* 40 MG TAB PO SCH (17:11)
[2017-03-31 06:00] LABS: Hematocrit 33 % (35-47); Hemoglobin 10.7 g/dl (12.0-16.0); Mean Corpuscular HGB Conc 32 g/dl (31-36); Mean Corpuscular Hemoglobin 29 pg (27-31); Mean Corpuscular Volume 91 fL (80-97); Mean Platelet Volume 9 um3 (7.4-10.4); Red Blood Count 3.66 10^6/ul (4.0-5.4); Red Cell Distribution Width 18 % (10.5-15); White Blood Count 7.8 10^3/ul (3.5-10.8)
[2017-03-31] MEDS: Sucralfate TAB* 1 GM PO SCH ×4 (06:14→20:56)
[2017-03-31 06:24] LABS: Albumin 3.5 g/dL (3.2-5.2); BUN/Creatinine Ratio 21.6 (8-20); EGFR African American 79.7 (>60); Globulin 2.4 g/dL (2-4); Potassium 3.5 mmol/L (3.5-5.0); Total Bilirubin 0.7 mg/dL (0.2-1.0); Total Protein 5.9 g/dL (6.4-8.9)
[2017-03-31] MEDS: Ferrous Sulfate TAB* 325 MG PO SCH (08:39)
[2017-03-31] MEDS: Metoprolol Tartrate TAB* 50 mg PO SCH ×2 (08:40→20:55)
[2017-03-31] MEDS: Apixaban* 2.5 MG TAB PO SCH ×2 (08:40→20:55)
[2017-03-31] MEDS: Omeprazole CAP* 20 MG PO SCH ×2 (08:40→16:25)
[2017-03-31] MEDS: Fludrocortisone Acetate TAB* 0.1 MG PO SCH (08:40)
[2017-03-31] MEDS: Carbidopa/Levodop 25/100 MG TAB(*) PO SCH ×4 (08:40→20:59)
[2017-03-31] MEDS: HYDROcodone/ACETAMIN 5-325 MG* 1 TAB PO PRN (10:35)
[2017-03-31] MEDS: Analgesic BALM* 114 GM TOPICAL SCH ×2 (12:21→21:00)
[2017-03-31] MEDS: Atorvastatin* 40 MG TAB PO SCH (16:26)
[2017-04-01] MEDS: HYDROcodone/ACETAMIN 5-325 MG* 1 TAB PO PRN ×2 (01:55→20:21)
[2017-04-01] MEDS: Omeprazole CAP* 20 MG PO SCH ×2 (05:10→16:30)
[2017-04-01] MEDS: Sucralfate TAB* 1 GM PO SCH ×5 (05:10→22:56)
[2017-04-01] MEDS: Carbidopa/Levodop 25/100 MG TAB(*) PO SCH ×4 (08:56→20:21)
[2017-04-01] MEDS: Apixaban* 2.5 MG TAB PO SCH ×2 (08:57→20:21)
[2017-04-01] MEDS: Metoprolol Tartrate TAB* 50 mg PO SCH ×2 (08:57→20:21)
[2017-04-01] MEDS: Fludrocortisone Acetate TAB* 0.1 MG PO SCH (08:58)
[2017-04-01] MEDS: Ferrous Sulfate TAB* 325 MG PO SCH (08:58)
[2017-04-01] MEDS: Analgesic BALM* 114 GM TOPICAL SCH ×2 (08:59→20:21)
--- NOTE | 2017-04-01 12:58 | PMRUTEAM ---
PMRU: Goals Current Status: Nursing: Current Status Skin Deviations [L Forearm] Other Skin Deviation Description [L healed Forearm] Bladder Current Status urinary frequency Bowel Current Status continent Nutrition Current Status appetite good Medication Current Status needs reinforcement. taking Independence for back pain. Physical Therapy: Current Status Bed Mobility Assistance Supervision Transfer Moblility Assistance Supervision Transfer/Bed Mobility Rolling Walker Recommended Devices Transfer Mobility Comment Pt. is able to transition from one surface to another S x 1 using 2 w/w. Ambulation Assistance Supervision Ambulation Assistive Devices Rolling Walker Number of Feet Patient 150 Ambulated Ambulation Comment An improved reciprocal type gait. Stairs Assistance Supervision Stairs Recommended Devices Two Rails Number of Stairs 5 Occupational Therapy: Current Status Upper Body Dressing Supervision Upper Body Dressing Progress S if seated. CGA when standing. Lower Body Dressing Supervision Lower Body Dressing Progress min A to pull up pants Bathing Contact Guard Assist Bathing Progress min A to wash buttocks and lower legs Toileting Supervision Toileting Progress min A for clothing management in standing Toilet Transfer Supervision Toilet Transfer Progress min Ax2 for SPT Shower Transfer Contact Guard Assist Shower Transfer Progress min Ax2 for SPT Eating Supervision Eating Progress set-up d/t visual deficits Rec Therapy: Current Status Summary of Assessment and RT assessment is complete and pt. is aware of Clinical Impression services. Pt. engages in leisure sessions regularly. Treatment Goals Pt. will engage in leisure activities while on the unit. Treatment Plan Provide RT services and encourage involvement. Social Work: Current Status Discharge Plan TBD: family meeting pending to determine a safe d / c plan Potential for Family Training pt's daughter is unavailable Anticipated Discharge Home Destination Discharge With TBD Nutrition: Current Status Monitoring Intake continues to range from 50% of some meals, to 90% of others. Overall appears adequate. had started a regimen of morning and afternoon snacks per d/w pt last week, but pt was declining some of them, so these were d/c yesterday. Eating independently per meal record, with occasional assistance opening containers. BG 102 03/31. Regular BMs noted; last BM today. No recommendations to make at this time; making adequate progress. Will continue to follow. 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 Goals: Physical Therapy: Initial Goals Bed Mobility Assistance Supervision Transfer Mobility Assistance Supervision Transfer/Bed Mobility Rolling Walker,Railings Recommended Devices Ambulation Supervision,Contact Guard Assist Ambulation Recommended Devices Rolling Walker Ambulation Distance 150 Stairs Assistance Supervision,Contact Guard Assist Stair Recommended Devices Two Rails Number of Stairs 5 Physical Therapy: Updated Goals Bed Mobility Assistance Independent Transfer Mobility Assistance Independent Transfer/Bed Mobility Rolling Walker,Railings Recommended Devices Ambulation Assistance Supervision Ambulation Assistive Devices Rolling Walker Ambulation Distance (ft) 150 Stairs Assistance Supervision Stairs Recommended Devices Two Rails Number of Stairs 5 Occupational Therapy: Initial Goals Goals to be Completed in (Days 14-21 ) Upper Body Bathing Routine Independent Lower Body Bathing Routine Modified Independent with Upper Body Dressing Routine Independent Lower Body Dressing Routine Modified Independent with Toilet Hygeine and Clothing Modified Independent with Management Routine Toilet Transfer Routine Modified Independent with Step-In Shower Transfer Modified Independent with Routine Tub Transfer Routine Modified Independent with Functional Transfers for ADL Modified Independent with Grooming Routine Independent Nursing: Goals Bladder Goal independent Bowel Goal independent Nutrition Goal eating 100% of all meals Medication Goal supervision Nutrition: Goals Intervention Goals 1. Intake will remain adequate to maintain UBW 2. Pt will maintain regular bowel pattern without constipation (or diarrhea) 3. Pt will tolerate PO without exacerbation of ulcer Speech: Goals Speech Goal 1 Cognitive-linguistic deficits Goal 1 Comments LTG: The patient will complete functional cognitive-linguistic tasks for increased safety, function and independence for daily living tasks at 90% accuracy. STGs: 1. The patient will complete functional left visual attention for reading and writing tasks at 90% accuracy with min cues. Status: -The patient completed menu with increased time with min cues for left visual attention for reading, selecting menu items and circling selected items with increased accuracy of circling desired items. The patient read addresses out of sequence on a single line and verbally sequenced with moderate cues, the patient then wrote the address on a mock envelope with min cues. Ongoing. 2. Ongoing cognitive-linguistic assessment with updates to POC as warranted. Status: Not directly targeted this date; ongoing. 3. The patient will complete functional sequencing tasks at 80% accuracy. Status: Not directly targeted this date; ongoing. 4. The patient will complete functional money and time management tasks at 80% accuracy. Status as of 03/27/17: Basic time word problems regarding calendar times at 50% accuracy, no cues, increased time; improved to 80% accuracy, with moderate verbal and visual cues. Ongoing. Social Work: Goals Discharge Plan TBD: family meeting pending to determine a safe d / c plan Potential for Family Training pt's daughter is unavailable Anticipated Discharge Home Destination Discharge With TBD Care Plan: Care Plan ADL's - Improve/Maintain Start: 03/17/17 15:21 Freq: DAILY Status: Active Target: Activity Type Activity Date Activity User E-Sign Co-Sign Detail Recorded Client Recorded Date Recorded By Document 03/28/17 14:02 [id number] 03/28/17 14:03 [id number] 03/28/17 14:02 PMRU Outcome: ADL's/ADL Transfers Orders/Interventions Occupational Therapy Evaluation & Treatment Communication Tool in Patient Room Device No Patient to receive OT 5x/wk for 60-120 Therex min/day Self Care Management Group Therapy Neuromuscular ReEducation UE/LE ADL's with Assist Yes ADL Transfers with Assist Yes Toileting: Transfers,Clothing Management Yes ,Hygeine w/Assist Light Kitchen/Laundry w/Assist Yes Progression Toward Outcome/Goals Not Progressing Outcome/Goals Met Pt is plateauing at a CGA/S level given her shuffling gait and L-neglect. Spoke with MD today re: concerns. Communication-Improve/Maintain Start: 03/17/17 13:35 Freq: DAILY Status: Active Target: Activity Type Activity Date Activity User E-Sign Co-Sign Detail Recorded Client Recorded Date Recorded By Document 03/31/17 13:18 [id number] 03/31/17 13:21 [id number] 03/31/17 13:18 PMRU Outcome: Communication/Cognitive Status Other Outcomes/Goals The patient will complete functional cognitive- linguistic tasks at 90% accuracy for improved safety , function and independence for daily living tasks. Progression Toward Outcomes/Goals Progressing Outcome/Goals Met Comment Min-mod cues for menu task for left visual attention - reading and writing /GI-Improve/Maintain Start: 03/17/17 22:26 Freq: DAILY Status: Active Target: Activity Type Activity Date Activity User E-Sign Co-Sign Detail Recorded Client Recorded Date Recorded By Document 04/01/17 11:00 [id number] 04/01/17 11:00 [id number] 04/01/17 11:00 PMRU Outcome: Genitourinary/ Gastrointestinal Genitourinary- Outcome/Goals Maintain/ Achieve Urinary Continence Maintain/ Achieve Adequate Urinary Output Remain Free of Hospital- Acquired UTI Gastrointestinal-Outcome/Goals Maintain/ Achieve Bowel Regularity in Accordance with Pt's Baseline Prevent Constipation Laxatives as Ordered Progression Toward Outcome/Goals - Progressing Progression Toward Outcome/Goals - GI Progressing Gastrointestinal-Outcome/Goals Met Maintain/ Achieve Bowel Regularity in Accordance with Pt's Baseline Prevent Constipation Mobility- Improve/Maintain Start: 03/17/17 11:56 Freq: DAILY Status: Active Target: Activity Type Activity Date Activity User E-Sign Co-Sign Detail Recorded Client Recorded Date Recorded By Document 03/31/17 12:39 [id number] 03/31/17 12:39 [id number] 03/31/17 12:39 PMRU Outcome: Mobility Physical Therapy Evaluation and Yes Treatment Activity OOB with Assistance Yes WBAT Yes Device Yes Assistance Yes Patient to be seen 5x/wk for 60-120 min/ Therex day for: Mobility Training Gait Training Balance Outcome/Goals Maintain/ Achieve Baseline Mobility Status Improve Mobility Status Demonstrates Proper Use of Assistive Devices Free from Complications of Immobility Progression Toward Outcome/Goals Progressing Bed Mobility Yes Transfers Yes Gait x ft Yes Up/Down Stairs Yes With HEP Yes Neurological- Improve/Maintain Start: 03/17/17 22:26 Freq: DAILY Status: Active Target: Activity Type Activity Date Activity User E-Sign Co-Sign Detail Recorded Client Recorded Date Recorded By Document 04/01/17 11:00 [id number] 04/01/17 11:00 [id number] 04/01/17 11:00 PMRU Outcome: Neurological Weakness/Aphasia Weakness Left Side Outcome/Goals Maintain/ Achieve Baseline Neurological Status Improve Neurological Status Maintain/ Improve Strength/ROM Progression Toward Outcome/Goals Progressing Outcome/Goals Met Maintain/ Achieve Baseline Neurological Status Nutrition/Swallowing- Improve/Maintain Start: 03/17/17 22:26 Freq: DAILY Status: Complete Target: Activity Type Activity Date Activity User E-Sign Co-Sign Detail Recorded Client Recorded Date Recorded By Document 03/22/17 08:00 [id number] 03/22/17 16:28 [id number] 03/22/17 08:00 PMRU Outcome: Nutrition/Swallowing Outcome/Goals Demonstrates Adequate Hydration/ Prevents Dehydration Maintain/ Improve Nutritional Status Outcome/Goals Met Demonstrates Adequate Hydration/ Prevents Dehydration Maintain/ Improve Nutritional Status Pain/Comfort- Improve/Maintain Start: 03/17/17 22:26 Freq: DAILY Status: Complete Target: Activity Type Activity Date Activity User E-Sign Co-Sign Detail Recorded Client Recorded Date Recorded By Document 03/31/17 09:20 [id number] 03/31/17 09:21 [id number] 03/31/17 09:20 PMRU Outcome: Pain/Comfort Outcome/Goals Demonstrates Knowledge and Use of Available Comfort Measures Achieves Acceptable Comfort/Pain Level as Determined by Patient/Condit Maintain Comfort Level Allowing Patient to Fully Participate in Rehab Progression Toward Outcome/Goals Progressing Outcome/Goals Met Demonstrates Knowledge and Use of Available Comfort Measures Maintain Comfort Level Allowing Patient to Fully Participate in Rehab Respiratory - Improve/Maintain Start: 03/17/17 22:26 Freq: DAILY Status: Complete Target: Activity Type Activity Date Activity User E-Sign Co-Sign Detail Recorded Client Recorded Date Recorded By Document 03/31/17 09:20 [id number] 03/31/17 09:21 [id number] 03/31/17 09:20 PMRU Outcome: Respiratory Does Patient Have a Trach No Outcome/Goals Maintain/ Improve O2 Sat per MD Order Maintain/ Improve Activity Tolerance Prevent Pneumonia/ Atelectasis Progression Toward Outcome/Goals Progressing Outcome/Goals Met Maintain/ Improve O2 Sat per MD Order Maintain/ Improve Activity Tolerance Safety- Improve/Maintain Start: 03/17/17 22:26 Freq: DAILY Status: Complete Target: Activity Type Activity Date Activity User E-Sign Co-Sign Detail Recorded Client Recorded Date Recorded By Document 03/31/17 09:20 [id number] 03/31/17 09:21 [id number] 03/31/17 09:20 PMRU Outcome: Safety Outcome/Goals Remain Free of Injury or Harm Cooperates with Safety Measures for Least Restrictive Environment Prevent Falls/ Injury Progression Toward Outcome/Goals Progressing Outcome/Goals Met Remain Free of Injury or Harm Cooperates with Safety Measures for Least Restrictive Environment Outcome/Goals Met Comment PA in place Skin- Improve/Maintain Start: 03/17/17 22:26 Freq: DAILY Status: Complete Target: Activity Type Activity Date Activity User E-Sign Co-Sign Detail Recorded Client Recorded Date Recorded By Document 03/31/17 09:20 [id number] 03/31/17 09:21 [id number] 03/31/17 09:20 PMRU Outcome: Skin Skin Risk Level Medium Skin Orders Turn/Position q2hr While in Bed Outcome/Goals Maintain/ Improve Skin Intergrity Progression Toward Outcome/Goals Progressing Outcome/Goals Met Maintain/ Improve Skin Intergrity Free from Decubitus Medicine Note: Length of Stay: 7 days Anticipated Discharge Destination: Home Tentative Discharge Date: 04/08/17 Discharged to: Home
[2017-04-01] MEDS: Atorvastatin* 40 MG TAB PO SCH (16:29)
[2017-04-02] MEDS: HYDROcodone/ACETAMIN 5-325 MG* 1 TAB PO PRN ×3 (02:35→21:48)
[2017-04-02] MEDS: Sucralfate TAB* 1 GM PO SCH ×4 (06:09→20:27)
[2017-04-02] MEDS: Omeprazole CAP* 20 MG PO SCH ×2 (06:09→16:37)
[2017-04-02] MEDS: Apixaban* 2.5 MG TAB PO SCH ×2 (08:33→20:27)
[2017-04-02] MEDS: Fludrocortisone Acetate TAB* 0.1 MG PO SCH (08:33)
[2017-04-02] MEDS: Carbidopa/Levodop 25/100 MG TAB(*) PO SCH ×4 (08:33→20:27)
[2017-04-02] MEDS: Ferrous Sulfate TAB* 325 MG PO SCH (08:33)
[2017-04-02] MEDS: Metoprolol Tartrate TAB* 50 mg PO SCH ×2 (08:33→20:27)
[2017-04-02] MEDS: Analgesic BALM* 114 GM TOPICAL SCH ×2 (08:35→20:29)
[2017-04-02] MEDS: Atorvastatin* 40 MG TAB PO SCH (16:37)
[2017-04-03] MEDS: Sucralfate TAB* 1 GM PO SCH ×4 (05:21→20:54)
[2017-04-03] MEDS: Omeprazole CAP* 20 MG PO SCH ×2 (05:21→16:32)
[2017-04-03] MEDS: HYDROcodone/ACETAMIN 5-325 MG* 1 TAB PO PRN ×2 (05:22→20:49)
[2017-04-03] MEDS: Carbidopa/Levodop 25/100 MG TAB(*) PO SCH ×4 (08:34→20:48)
[2017-04-03] MEDS: Fludrocortisone Acetate TAB* 0.1 MG PO SCH (08:35)
[2017-04-03] MEDS: Ferrous Sulfate TAB* 325 MG PO SCH (08:35)
[2017-04-03] MEDS: Metoprolol Tartrate TAB* 50 mg PO SCH ×2 (08:35→20:51)
[2017-04-03] MEDS: Apixaban* 2.5 MG TAB PO SCH ×2 (08:35→20:53)
[2017-04-03] MEDS: Analgesic BALM* 114 GM TOPICAL SCH ×2 (08:36→20:51)
[2017-04-03] MEDS: Atorvastatin* 40 MG TAB PO SCH (16:32)
[2017-04-04] MEDS: HYDROcodone/ACETAMIN 5-325 MG* 1 TAB PO PRN ×2 (01:56→09:10)
[2017-04-04] MEDS: Sucralfate TAB* 1 GM PO SCH ×4 (06:08→20:03)
[2017-04-04] MEDS: Omeprazole CAP* 20 MG PO SCH ×2 (06:08→16:23)
[2017-04-04] MEDS: Carbidopa/Levodop 25/100 MG TAB(*) PO SCH ×4 (09:06→20:19)
[2017-04-04] MEDS: Apixaban* 2.5 MG TAB PO SCH ×2 (09:07→20:03)
[2017-04-04] MEDS: Ferrous Sulfate TAB* 325 MG PO SCH (09:07)
[2017-04-04] MEDS: Metoprolol Tartrate TAB* 50 mg PO SCH ×2 (09:07→20:03)
[2017-04-04] MEDS: Fludrocortisone Acetate TAB* 0.1 MG PO SCH (09:07)
[2017-04-04] MEDS: Analgesic BALM* 114 GM TOPICAL SCH ×2 (09:11→20:08)
[2017-04-04] MEDS: Atorvastatin* 40 MG TAB PO SCH (16:24)
[2017-04-05] MEDS: Sucralfate TAB* 1 GM PO SCH ×4 (05:41→20:17)
[2017-04-05] MEDS: Omeprazole CAP* 20 MG PO SCH ×2 (05:41→16:32)
[2017-04-05] MEDS: HYDROcodone/ACETAMIN 5-325 MG* 1 TAB PO PRN ×2 (06:19→21:11)
[2017-04-05] MEDS: Metoprolol Tartrate TAB* 50 mg PO SCH ×2 (07:50→20:32)
[2017-04-05] MEDS: Ferrous Sulfate TAB* 325 MG PO SCH (07:50)
[2017-04-05] MEDS: Apixaban* 2.5 MG TAB PO SCH ×2 (07:50→20:17)
[2017-04-05] MEDS: Carbidopa/Levodop 25/100 MG TAB(*) PO SCH ×4 (07:50→20:17)
[2017-04-05] MEDS: Fludrocortisone Acetate TAB* 0.1 MG PO SCH (07:50)
[2017-04-05] MEDS: Analgesic BALM* 114 GM TOPICAL SCH ×2 (07:53→21:53)
[2017-04-05] MEDS: Atorvastatin* 40 MG TAB PO SCH (16:32)
[2017-04-06] MEDS: Sucralfate TAB* 1 GM PO SCH ×4 (04:53→18:16)
[2017-04-06] MEDS: HYDROcodone/ACETAMIN 5-325 MG* 1 TAB PO PRN ×2 (05:02→20:33)
[2017-04-06] MEDS: Omeprazole CAP* 20 MG PO SCH ×2 (05:07→16:18)
[2017-04-06] MEDS: Carbidopa/Levodop 25/100 MG TAB(*) PO SCH ×4 (08:21→20:28)
[2017-04-06] MEDS: Fludrocortisone Acetate TAB* 0.1 MG PO SCH (08:22)
[2017-04-06] MEDS: Ferrous Sulfate TAB* 325 MG PO SCH (08:22)
[2017-04-06] MEDS: Metoprolol Tartrate TAB* 50 mg PO SCH ×2 (08:22→20:28)
[2017-04-06] MEDS: Apixaban* 2.5 MG TAB PO SCH ×2 (08:22→20:28)
[2017-04-06] MEDS: Analgesic BALM* 114 GM TOPICAL SCH ×2 (11:25→20:29)
[2017-04-06] MEDS: Atorvastatin* 40 MG TAB PO SCH (16:18)
[2017-04-07] MEDS: HYDROcodone/ACETAMIN 5-325 MG* 1 TAB PO PRN ×2 (03:32→20:51)
[2017-04-07] MEDS: Sucralfate TAB* 1 GM PO SCH ×4 (06:20→19:01)
[2017-04-07] MEDS: Omeprazole CAP* 20 MG PO SCH ×2 (06:27→15:45)
[2017-04-07] MEDS: Metoprolol Tartrate TAB* 50 mg PO SCH ×2 (08:56→20:50)
[2017-04-07] MEDS: Ferrous Sulfate TAB* 325 MG PO SCH (08:56)
[2017-04-07] MEDS: Apixaban* 2.5 MG TAB PO SCH ×2 (08:56→20:50)
[2017-04-07] MEDS: Fludrocortisone Acetate TAB* 0.1 MG PO SCH (08:56)
[2017-04-07] MEDS: Analgesic BALM* 114 GM TOPICAL SCH ×2 (08:57→20:52)
[2017-04-07] MEDS: Carbidopa/Levodop 25/100 MG TAB(*) PO SCH ×4 (08:57→20:50)
[2017-04-07 09:21] LABS: Hematocrit 36 % (35-47); Hemoglobin 11.6 g/dl (12.0-16.0); Mean Corpuscular HGB Conc 33 g/dl (31-36); Mean Corpuscular Hemoglobin 30 pg (27-31); Mean Corpuscular Volume 92 fL (80-97); Mean Platelet Volume 9 um3 (7.4-10.4); Red Blood Count 3.88 10^6/ul (4.0-5.4); Red Cell Distribution Width 18 % (10.5-15); White Blood Count 9.5 10^3/ul (3.5-10.8)
[2017-04-07 09:40] LABS: Albumin 4.2 g/dL (3.2-5.2); BUN/Creatinine Ratio 20.7 (8-20); Calcium 9.5 mg/dL (8.6-10.3); EGFR African American 75.7 (>60); EGFR Non-African American 58.9 (>60); Globulin 2.5 g/dL (2-4); Total Bilirubin 0.8 mg/dL (0.2-1.0); Total Protein 6.7 g/dL (6.4-8.9)
[2017-04-07 16:29] VITALS: BP 172/102
[2017-04-07] MEDS: Atorvastatin* 40 MG TAB PO SCH (16:41)
[2017-04-08] MEDS: HYDROcodone/ACETAMIN 5-325 MG* 1 TAB PO PRN (01:41)
[2017-04-08] MEDS: Sucralfate TAB* 1 GM PO SCH (05:22)
[2017-04-08] MEDS: Omeprazole CAP* 20 MG PO SCH (06:56)
[2017-04-08] MEDS: Analgesic BALM* 114 GM TOPICAL SCH (08:27)
[2017-04-08] MEDS: Metoprolol Tartrate TAB* 50 mg PO SCH (08:27)
[2017-04-08] MEDS: Apixaban* 2.5 MG TAB PO SCH (08:27)
[2017-04-08] MEDS: Ferrous Sulfate TAB* 325 MG PO SCH (08:27)
[2017-04-08] MEDS: Carbidopa/Levodop 25/100 MG TAB(*) PO SCH (08:27)
[2017-04-08] MEDS: Fludrocortisone Acetate TAB* 0.1 MG PO SCH (08:27)
--- NOTE | 2017-04-09 05:02 | DS ---
CC: Dr. Damon * DISCHARGE SUMMARY: DATE OF ADMISSION: 03/16/17 DATE OF DISCHARGE: 04/08/17 DISCHARGE DIAGNOSES: 1. Cerebrovascular accident with left hemiplegia. 2. Atrial fibrillation. 3. Parkinson's disease. 4. Sick sinus syndrome, with pacemaker. 5. Shy-Drager syndrome. 6. Hypertension. 7. Hyperlipidemia. HISTORY OF ILLNESS AND HOSPITAL COURSE: For complete history of the events leading up to her rehab stay, please see the history and physical dictated by Dr. Munira Menendez on 03/16/17. While on the rehab unit, the patient was fairly stable from medical point of view. She did have a stroke noted in her right parietal lobe on followup CAT scan of her head. She had followup consultation with Dr. Shirley Friedman from Neurology on 03/21/17, who recommended to start the patient on Eliquis 2.5 mg twice a day. This was done. Her blood pressure was high in supine position. This was felt to be necessary because of her Shy-Drager syndrome. She was also maintained on Florinef because of her history of orthostatic hypotension. The patient continued on her Sinemet throughout her rehab stay. She otherwise was medically stable. The patient was seen by both Physical and Occupational Therapy and made good gains with both disciplines. With physical therapy, at the time of admission, the patient required moderate amount of assistance for transfers. She was able to ambulate with moderate amount of assistance. She can go about 15 feet. With occupational therapy, at the time of admission, the patient was noted to require total assistance for lower body dressing, mod assistance for upper body dressing, total assistance for toileting. By the time of discharge, the patient was independent in transfers, required supervision for ambulating 150 feet, supervision for stair climbing, supervision for toileting and toilet transfers. The patient was also seen by Speech Therapy throughout her rehab stay. Her communication, she was independent expressing her basic wants and needs. She did have left attention deficits for reading and writing at the time of discharge. It was felt the patient could not return home alone. The patient arranged to go home with friends. She was discharged home on 04/08/17. DISCHARGE DIET: Regular. DISCHARGE MEDICATIONS: 1. Eliquis 2.5 mg twice a day. 2. Lipitor 40 mg at 5 p.m. 3. Sinemet 25/100 two tablets daily at 12 noon, 4 p.m., 9 p.m.; 2-1/2 tablets at 8 a.m. 4. Florinef 0.1 mg every day. 5. Hydrocodone with Tylenol 5/325 one tablet every 6 hours as needed for pain. 6. Lopressor 50 mg twice daily. 7. Omeprazole 20 mg at 7 a.m. and 4 p.m. 8. Carafate 1 g orally at 6 a.m., 11 a.m., 2 p.m., and 9 p.m. SERVICES AFTER DISCHARGE: Through visiting nurse service. She will have home nursing, home physical therapy, and a home health aide. Follow up with Dr. Damon in 1 week. [id number]/[facility] #: [id number] MTDD
== END 2017-04-08 11:15 | disposition home health service (06) | DRG 57 ==
LOC: PMRU 12:02
PROVIDERS: ADMIT Physical Medicine & Rehabilitation; ATTEND Physical Medicine & Rehabilitation
PROC: F07Z5ZZ Bed Mobility Treatment (ICD-10-PCS; principal; 2017-03-16)
PROC: F07Z8ZZ Transfer Training Treatment (ICD-10-PCS; 2017-03-16)
PROC: F07Z9ZZ Gait Training/Functional Ambulation Treatment (ICD-10-PCS; 2017-03-16)
PROC: F08Z0ZZ Bathing/Showering Techniques Treatment (ICD-10-PCS; 2017-03-16)
PROC: F08Z1ZZ Dressing Techniques Treatment (ICD-10-PCS; 2017-03-16)
PROC: F08Z3ZZ Feeding/Eating Treatment (ICD-10-PCS; 2017-03-16)
PROC: F06Z6ZZ Communicative/Cognitive Integration Skills Treatment (ICD-10-PCS; 2017-03-16)
DX: I69.354 Hemiplegia and hemiparesis following cerebral infarction affecting left non-dominant side (principal); G90.3 Multi-system degeneration of the autonomic nervous system; G20 Parkinson's disease; I69.319 Unspecified symptoms and signs involving cognitive functions following cerebral infarction; I49.5 Sick sinus syndrome; I10 Essential (primary) hypertension; E78.5 Hyperlipidemia, unspecified; I48.2 Chronic atrial fibrillation; Z82.49 Family history of ischemic heart disease and other diseases of the circulatory system; Z95.0 Presence of cardiac pacemaker; Z80.1 Family history of malignant neoplasm of trachea, bronchus and lung; I95.1 Orthostatic hypotension; M54.5 Low back pain; R07.9 Chest pain, unspecified
CPT/HCPCS: 36415; 70450; 71020; 80053; 81003; 84484; 85025; 93005; A9270-GY; J1650

== ENCOUNTER 2017-04-17 16:32 | Emergency (ER) | payer MEDICARE ==
[2017-04-17] MEDS ORDERED: Lidocaine/Epineph/Tetraca SOL* (LET solution) 4 ML BTL TOPICAL ONE (17:01)
[2017-04-17 17:40] VITALS: BP 120/80
--- NOTE | 2017-04-17 17:53 | UC ---
Head Injury HPI - HPI Summary HPI Summary: FELL BACKWARDS TWO HOURS AGO. HIT CORNER OF WALL WITH BACK OF HEAD. NO LOC. NO NECK PAIN. HAS COMPLICATED HISTORY OF AFIB, CVA 03/16/17, SYNCOPE 03/12/17. ON BLOOD THINNERS. PATIENT REFUSES TO GO TO EMERGENCY DEPARTMENT FOR EVALUATION. - History Of Current Complaint Chief Complaint: UCLaceration Stated Complaint: HEAD LACERATION Time Seen by Provider: 04/17/17 16:52 Hx Obtained From: Patient Onset/Duration: Sudden Onset, Lasting Minutes, Still Present Severity Currently: Mild Severity Initially: Mild Aggravating Factor(s): Nothing Alleviating Factor(s): Nothing Associated Signs And Symptoms: Positive: Other - OCCASIONALLY FEELS DIZZY. Negative: LOC (Time In Secs./Mins/Hrs), LOC Duration Unknown, Confusion, Memory Loss, Seizure, Epistaxis, Dental Malocclusion, Neck Pain, Nausea, Vomiting - Risk Factors SDH Risk Factor: Negative - Allergies/Home Medications Allergies/Adverse Reactions: Allergies Allergy/AdvReac Type Severity Reaction Status Date / Time Penicillins Allergy Hives Verified 04/17/17 16:50 crystal light Allergy Airway Uncoded 04/17/17 16:50 Obstruction PMH/Surg Hx/FS Hx/Imm Hx Previously Healthy: Yes Cardiovascular History: Cardiac Disease, Atrial Fibrillation, Bleeding Disorders Neurological History: CVA - Surgical History Surgical History: Yes Surgery Procedure, Year, and Place: skin, hysterectomy- one ovary; appe; pacemaker; heart scraped after infection - Family History Known Family History: Positive: Unknown, Hypertension Negative: Cardiac Disease - Social History Occupation: Retired Lives: With Family Alcohol Use: None Substance Use Type: None Smoking Status (MU): Never Smoked Tobacco - Immunization History Most Recent Influenza Vaccination: fall 2015 Most Recent Tetanus Shot: unknown Most Recent Pneumonia Vaccination: 2016 Review of Systems Constitutional: Negative Skin: Other - LACERATION POSTERIOR SCALP Eyes: Negative ENT: Negative Respiratory: Negative Cardiovascular: Negative Gastrointestinal: Negative Genitourinary: Negative Motor: Negative Neurovascular: Negative Musculoskeletal: Negative Neurological: Negative Psychological: Negative All Other Systems Reviewed And Are Negative: Yes Physical Exam Triage Information Reviewed: Yes Appearance: Well-Appearing, No Pain Distress, Well-Nourished Vital Signs: Initial Vital Signs Temp 98.6 F 04/17/17 16:44 Pulse 80 04/17/17 16:44 Resp 16 04/17/17 16:44 Pulse Ox 96 04/17/17 16:44 Vital Signs Reviewed: Yes Eye Exam: Normal ENT Exam: Normal Dental Exam: Normal Neck exam: Normal Neck: Positive: Supple, Nontender Respiratory Exam: Normal Respiratory: Positive: Chest non-tender Cardiovascular Exam: Other - AFIB Cardiovascular: Positive: Pulses Normal, Brisk Capillary Refill Abdominal Exam: Normal Abdomen Description: Positive: Nontender, No Organomegaly Musculoskeletal Exam: Normal Musculoskeletal: Positive: Strength Intact, ROM Intact Neurological Exam: Normal Psychological Exam: Normal Psychological: Positive: Normal Response To Family Skin: Positive: Other - LACERATION POSTERIOR SCALP Procedures - Laceration/Wound Repair 1 Location: head Description: Linear - 2CM X 5MM X 5MM Laceration/Wound Explored: clean Closure: Cecile #__ - 3 Layer Closure?: Yes Sterile Dressing Applied?: Yes Head Injury Course/Dx - Differential Dx/Diagnosis Differential Diagnosis/HQI/PQRI: Concussion With LOC, Concussion Without LOC Provider Diagnoses: LACERATION POSTERIOR SCALP WITH REPAIR; HEAD TRAUMA; AFIB; HX OF CVA. Discharge - Discharge Plan Condition: Improved Disposition: AGAINST MEDICAL ADVICE Referrals: Douglas Damon MD [Primary Care Provider] -
== END 2017-04-17 17:41 | disposition left against medical advice (07) ==
LOC: UCEAST 16:32
DX: S01.01XA Laceration without foreign body of scalp, initial encounter (principal); W18.09XA Striking against other object with subsequent fall, initial encounter; Y93.9 Activity, unspecified; Y92.9 Unspecified place or not applicable; Z86.73 Personal history of transient ischemic attack (TIA), and cerebral infarction without residual deficits; I48.91 Unspecified atrial fibrillation; Z95.0 Presence of cardiac pacemaker; Z79.01 Long term (current) use of anticoagulants; Z88.0 Allergy status to penicillin
CPT/HCPCS: 12001; 93005; 99212; G0463

== ENCOUNTER 2017-04-23 09:26 | Emergency (ER) | payer MEDICARE ==
[2017-04-23 09:43] VITALS: BP 124/67
--- NOTE | 2017-04-23 10:03 | UC ---
HPI Wound/Suture Re-check - HPI Summary HPI Summary: 77 yo female here for staple removal scalp in about a week here for out pt films (ribs and back) from her fall - History Of Current Complaint Chief Complaint: UCGeneralIllness Stated Complaint: STAPLE REMOVAL Time Seen by Provider: 04/23/17 09:49 Hx Obtained From: Patient Onset/Duration: Sudden Onset Surgical Site: scalp Severity: Mild Pain Intensity: 0 - scalp-does have back and chest pain (ribs) Pain Scale Used: 0-10 Numeric - Allergies/Home Medications Allergies/Adverse Reactions: Allergies Allergy/AdvReac Type Severity Reaction Status Date / Time Penicillins Allergy Hives Verified 04/17/17 16:50 crystal light Allergy Airway Uncoded 04/17/17 16:50 Obstruction PMH/Surg Hx/FS Hx/Imm Hx Cardiovascular History: Hypertension Neurological History: CVA - Surgical History Surgical History: Yes Surgery Procedure, Year, and Place: skin, hysterectomy- one ovary; appe; pacemaker; heart scraped after infection - Family History Known Family History: Positive: Unknown, Hypertension Negative: Cardiac Disease - Social History Alcohol Use: None Substance Use Type: None Smoking Status (MU): Never Smoked Tobacco - Immunization History Most Recent Influenza Vaccination: fall 2015 Most Recent Tetanus Shot: unknown Most Recent Pneumonia Vaccination: 2015 Review of Systems Constitutional: Negative Skin: Negative Eyes: Negative ENT: Negative Respiratory: Negative Cardiovascular: Negative Gastrointestinal: Negative Genitourinary: Negative Motor: Negative Neurovascular: Negative Musculoskeletal: Arthralgia, Myalgia Neurological: Negative Psychological: Negative All Other Systems Reviewed And Are Negative: Yes Physical Exam Triage Information Reviewed: Yes Appearance: Well-Appearing, No Pain Distress, Well-Nourished Vital Signs: Initial Vital Signs Temp 98.7 F 04/23/17 09:39 Pulse 90 04/23/17 09:39 Resp 16 04/23/17 09:39 BP 124/67 04/23/17 09:39 Pulse Ox 97 04/23/17 09:39 Eyes: Positive: Conjunctiva Clear ENT: Negative: Hearing grossly normal, Nasal congestion, Nasal drainage, Trismus , Muffled/hoarse voice Neck: Positive: Supple, Nontender Respiratory: Positive: Lungs clear, Normal breath sounds, No respiratory distress, No accessory muscle use Cardiovascular: Positive: RRR, No Murmur Neurological: Positive: Alert Psychological Exam: Normal Skin Exam: Other - healing scalp lac Course/Dx - Course Course Of Treatment: three kiana removed - Differential Dx - Laceration/Wound Provider Diagnoses: staple removal (scalp) Discharge - Discharge Plan Condition: Stable Disposition: HOME Referrals: Douglas Damon MD [Primary Care Provider] - Additional Instructions: kiana removed call for any questions return for any problems
== END 2017-04-23 10:03 | disposition home or self-care (01) ==
LOC: UCEAST 09:26
DX: S01.01XD Laceration without foreign body of scalp, subsequent encounter (principal); X58.XXXD Exposure to other specified factors, subsequent encounter; Y92.9 Unspecified place or not applicable; I10 Essential (primary) hypertension; Z86.73 Personal history of transient ischemic attack (TIA), and cerebral infarction without residual deficits; Z95.0 Presence of cardiac pacemaker; Z90.711 Acquired absence of uterus with remaining cervical stump; Z88.0 Allergy status to penicillin

== ENCOUNTER 2017-05-12 18:24 | Emergency (ER) | payer MEDICARE ==
[2017-05-12 18:54] VITALS: BP 197/121
--- NOTE | 2017-05-12 20:12 | RAD ---
INDICATION: Syncope, falls. COMPARISON: Comparison is made with a prior chest x-ray study from April 23, 2017. TECHNIQUE: A portable view of the chest was obtained. FINDINGS: There is a dual-chamber transvenous pacemaker present. The heart is mildly enlarged and unchanged. The lungs are clear. No pleural effusion is seen. IMPRESSION: NO EVIDENCE FOR ACUTE DISEASE.
--- NOTE | 2017-05-12 20:25 | RAD ---
INDICATION: Head injury. COMPARISON: Comparison is made with a prior CT of the brain from March 21, 2017. TECHNIQUE: Contiguous axial sections of the brain were obtained from the skull base to the vertex without contrast. FINDINGS: The ventricles, cisterns and sulci are enlarged consistent with diffuse atrophy. There are small areas of decreased density in the subcortical and periventricular white matter suggestive of mild chronic small vessel ischemic changes. There are also focal small to moderate size areas of encephalomalacia present in the posterior right temporal and posterior right parietal lobes most consistent with old infarcts. No mass effect is present. There is no evidence for hemorrhage. No significant focal osseous abnormality is seen. The visualized portion of the paranasal sinuses and mastoid air cells appear clear. IMPRESSION: 1. NO EVIDENCE FOR ACUTE INTRACRANIAL ABNORMALITY. 2. 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
[2017-05-12 20:33] LABS: Hematocrit 38 % (35-47); Hemoglobin 12.5 g/dl (12.0-16.0); Mean Corpuscular HGB Conc 33 g/dl (31-36); Mean Corpuscular Hemoglobin 31 pg (27-31); Mean Corpuscular Volume 93 fL (80-97); Mean Platelet Volume 8 um3 (7.4-10.4); Red Blood Count 4.08 10^6/ul (4.0-5.4); Red Cell Distribution Width 15 % (10.5-15); White Blood Count 8.7 10^3/ul (3.5-10.8)
[2017-05-12 20:48] LABS: ALT < 3 U/L (7-52); AST 10 U/L (13-39); Albumin 4.2 g/dL (3.2-5.2); Alkaline Phosphatase 101 U/L (34-104); Anion Gap 9 mmol/L (2-11); BUN/Creatinine Ratio 18.5 (8-20); Blood Urea Nitrogen 17 mg/dL (6-24); CO2 Carbon Dioxide 27 mmol/L (22-32); Calcium 9.5 mg/dL (8.6-10.3); Chloride 104 mmol/L (101-111); EGFR African American 75.7 (>60); EGFR Non-African American 58.9 (>60); Globulin 2.9 g/dL (2-4); Glucose 99 mg/dL (70-100); Sodium 140 mmol/L (133-145); Total Protein 7.1 g/dL (6.4-8.9)
--- NOTE | 2017-05-12 20:56 | ED ---
Clarence Hernandes Benjamin, scribed for Adam Lindsey MD on 05/12/17 at 1947 . Syncope/Near Syncope - HPI Summary HPI Summary: 77yo female BIBA for 4 episodes of syncope today. Pt reports hitting her posterior head upon falling. Pt states that when she stands up, her BP rapidly elevates, and she passes out. Pt says she doesnt recall her syncopal episodes. Pt has hx of ulcer in her leg and has a pacemaker in place. Pt had CVA 4 weeks ago and says her BP has been irregular since then. Pt denies any pain anywhere. - History Of Current Complaint Chief Complaint: EDSyncope Time Seen by Provider: 05/12/17 19:17 Hx Obtained From: Patient Onset/Duration: Sudden Onset, Lasting Minutes, Resolved Timing: Intermittent Episode Lasting Context: Loss Of Consciousness Activity At Onset: Exertion - standing up from sitting position Associated Head Trauma: Yes Aggravating Factor(s): Position Change Alleviating Factor(s): Nothing Associated Signs And Symptoms: Negative - Allergies/Home Medications Allergies/Adverse Reactions: Allergies Allergy/AdvReac Type Severity Reaction Status Date / Time Penicillins Allergy Hives Verified 04/17/17 16:50 crystal light Allergy Airway Uncoded 04/17/17 16:50 Obstruction PMH/Surg Hx/FS Hx/Imm Hx Endocrine/Hematology History: Reports: Hx Blood Transfusions - current visit, Hx Anemia - current Denies: Hx Diabetes, Hx Thyroid Disease Cardiovascular History: Reports: Hx Hypertension, Hx Pacemaker/ICD, Hx Syncope Denies: Hx Angina, Hx Coronary Artery Disease, Hx Hypercholesterolemia, Hx Myocardial Infarction, Hx Peripheral Vascular Disease Respiratory History: Denies: Hx Asthma, Hx Chronic Obstructive Pulmonary Disease (COPD), Other Respiratory Problems/Disorders GI History: Reports: Hx Gastroesophageal Reflux Disease - HISTORY OF, Hx Ulcer - OCTOBER 2016 Musculoskeletal History: Reports: Hx Arthritis, Hx Rheumatoid Arthritis, Hx Back Problems Denies: Hx Osteoporosis Sensory History: Reports: Hx Contacts or Glasses Denies: Hx Hearing Aid Opthamlomology History: Reports: Hx Contacts or Glasses Neurological History: Reports: Hx Migraine, Hx Transient Ischemic Attacks (TIA) , Other Neuro Impairments/Disorders - HISTORY OF [place] Denies: Hx Headaches, Hx Seizures - Cancer History Cancer Type, 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; UPPER LIP - Surgical History Surgery Procedure, Year, and Place: skin, hysterectomy- one ovary; appe; pacemaker; heart scraped after infection Hx Anesthesia Reactions: No - Immunization History Date of Tetanus Vaccine: UTD Date of Influenza Vaccine: 2015 Infectious Disease History: No Infectious Disease History: Denies: Hx Clostridium Difficile, Hx Hepatitis, Hx Human Immunodeficiency Virus (HIV), Hx of Known/Suspected MRSA, Hx Shingles, Hx Tuberculosis, Hx Known/ Suspected VRE, Hx Known/Suspected VRSA, History Other Infectious Disease, Traveled Outside the [place] in Last 30 Days - Family History Known Family History: Positive: Cardiac Disease, Hypertension, Other - [place] - Social History Occupation: Retired Lives: Alone Alcohol Use: None Hx Substance Use: No Substance Use Type: Reports: None Hx Tobacco Use: No Smoking Status (MU): Never Smoked Tobacco Review of Systems Constitutional: Negative Eyes: Negative ENT: Negative Cardiovascular: Negative Respiratory: Negative Gastrointestinal: Negative Genitourinary: Negative Musculoskeletal: Negative Neurological: Other - head injury Positive: Syncope - x4 Psychological: Normal All Other Systems Reviewed And Are Negative: Yes Physical Exam Vital Signs On Initial Exam: Initial Vitals Temp Pulse Resp BP Pulse Ox 99.2 F 104 18 197/121 97 05/12/17 18:47 05/12/17 18:47 05/12/17 18:47 05/12/17 18:47 05/12/17 18:47 - [place] Coma Scale Coma Scale Total: 15 Diagnostics - Vital Signs Vital Signs Temp Pulse Resp BP Pulse Ox 05/12/17 18:47 99.2 F 104 18 197/121 97 - Laboratory Lab Results: Lab Results 05/12/17 05/12/17 05/12/17 Range/Units 20:23 20:23 20:23 WBC 8.7 (3.5-10.8) 10^3/ul RBC 4.08 (4.0-5.4) 10^6/ul Hgb 12.5 (12.0-16.0) g/dl Hct 38 (35-47) % MCV 93 (80-97) fL MCH 31 (27-31) pg MCHC 33 (31-36) g/dl RDW 15 (10.5-15) % Plt Count 256 (150-450) 10^3/ul MPV 8 (7.4-10.4) um3 Neut % (Auto) 77.6 (38-83) % Lymph % (Auto) 14.0 L (25-47) % [place] % (Auto) 6.9 (1-9) % Eos % (Auto) 0.6 (0-6) % Baso % (Auto) 0.9 (0-2) % Absolute Neuts (auto) 6.8 (1.5-7.7) 10^3/ul Absolute Lymphs (auto) 1.2 (1.0-4.8) 10^3/ul Absolute Monos (auto) 0.6 (0-0.8) 10^3/ul Absolute Eos (auto) 0.1 (0-0.6) 10^3/ul Absolute Basos (auto) 0.1 (0-0.2) 10^3/ul Absolute Nucleated RBC 0 10^3/ul Nucleated RBC % 0 INR (Anticoag Therapy) (0.89-1.11) APTT (26.0-36.3) seconds Sodium 140 (133-145) mmol/L Potassium 3.0 L (3.5-5.0) mmol/L Chloride 104 (101-111) mmol/L Carbon Dioxide 27 (22-32) mmol/L Anion Gap 9 (2-11) mmol/L BUN 17 (6-24) mg/dL Creatinine 0.92 (0.51-0.95) mg/dL Est GFR ( Amer) 75.7 (>60) Est GFR (Non-Af Amer) 58.9 (>60) BUN/Creatinine Ratio 18.5 (8-20) Glucose 99 (70-100) mg/dL Lactic Acid 1.1 (0.5-2.0) mmol/L Calcium 9.5 (8.6-10.3) mg/dL Magnesium 2.0 (1.9-2.7) mg/dL Total Bilirubin 0.70 (0.2-1.0) mg/dL AST 10 L (13-39) U/L ALT < 3 L (7-52) U/L Alkaline Phosphatase 101 (34-104) U/L Troponin I 0.00 (<0.04) ng/mL Total Protein 7.1 (6.4-8.9) g/dL Albumin 4.2 (3.2-5.2) g/dL Globulin 2.9 (2-4) g/dL Albumin/Globulin Ratio 1.4 (1-3) TSH Pending 05/12/17 Range/Units 20:23 WBC (3.5-10.8) 10^3/ul RBC (4.0-5.4) 10^6/ul Hgb (12.0-16.0) g/dl Hct (35-47) % MCV (80-97) fL MCH (27-31) pg MCHC (31-36) g/dl RDW (10.5-15) % Plt Count (150-450) 10^3/ul MPV (7.4-10.4) um3 Neut % (Auto) (38-83) % Lymph % (Auto) (25-47) % [place] % (Auto) (1-9) % Eos % (Auto) (0-6) % Baso % (Auto) (0-2) % Absolute Neuts (auto) (1.5-7.7) 10^3/ul Absolute Lymphs (auto) (1.0-4.8) 10^3/ul Absolute Monos (auto) (0-0.8) 10^3/ul Absolute Eos (auto) (0-0.6) 10^3/ul Absolute Basos (auto) (0-0.2) 10^3/ul Absolute Nucleated RBC 10^3/ul Nucleated RBC % INR (Anticoag Therapy) 0.91 (0.89-1.11) APTT 27.0 (26.0-36.3) seconds Sodium (133-145) mmol/L Potassium (3.5-5.0) mmol/L Chloride (101-111) mmol/L Carbon Dioxide (22-32) mmol/L Anion Gap (2-11) mmol/L BUN (6-24) mg/dL Creatinine (0.51-0.95) mg/dL Est GFR ( Amer) (>60) Est GFR (Non-Af Amer) (>60) BUN/Creatinine Ratio (8-20) Glucose (70-100) mg/dL Lactic Acid (0.5-2.0) mmol/L Calcium (8.6-10.3) mg/dL Magnesium (1.9-2.7) mg/dL Total Bilirubin (0.2-1.0) mg/dL AST (13-39) U/L ALT (7-52) U/L Alkaline Phosphatase (34-104) U/L Troponin I (<0.04) ng/mL Total Protein (6.4-8.9) g/dL Albumin (3.2-5.2) g/dL Globulin (2-4) g/dL Albumin/Globulin Ratio (1-3) TSH Result Diagrams: 05/12/17 20:23 05/12/17 20:23 Lab Statement: Any lab studies that have been ordered have been reviewed, and results considered in the medical decision making process. - Radiology CXR Xray Interpretation: No Acute Changes Radiology Interpretation Completed By: Radiologist - ED Physician reviewed the radiology report and agrees with the finding. - CT CT Brain WO CT Interpretation: No Acute Changes - IMPRESSION: 1. NO EVIDENCE FOR ACUTE INTRACRANIAL ABNORMALITY. 2. 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 CT Interpretation Completed By: Radiologist - ED Physician reviewed the radiology report and agrees with the finding. Course/Dx Course Of Treatment: Reviewed pt's list of medication and allergies. High blood pressure noted.The patient refuses to stay and have further assesment of her BP , orthostatic state and admission. She is signing out AMA. She has full medical decision capacity at this time. Risk of , disability. - Diagnoses Provider Diagnoses: Syncope, Closed head injury, Hypertension Discharge - Discharge Plan Condition: Good Disposition: AGAINST MEDICAL ADVICE Referrals: Douglas Damon MD [Primary Care Provider] - The documentation as recorded by the Clarence lr Benjamin accurately reflects the service I personally performed and the decisions made by , Adam Lindsey MD.
[2017-05-12 21:16] LABS: TSH (Thyroid Stimulating Horm) 0.68 mcIU/mL (0.34-5.60)
== END 2017-05-12 22:16 | disposition left against medical advice (07) ==
LOC: ED 18:24
DX: R55 Syncope and collapse (principal); S09.90XA Unspecified injury of head, initial encounter; I10 Essential (primary) hypertension; W19.XXXA Unspecified fall, initial encounter; Y93.9 Activity, unspecified; Y92.9 Unspecified place or not applicable; Y99.9 Unspecified external cause status
CPT/HCPCS: 36415; 70450; 71010; 80053; 83605; 83735; 84443; 84484; 85025; 85610; 85730; 93005; 99283

== ENCOUNTER 2017-09-06 23:37 | Observation (INO) | payer MEDICARE ==
[2017-09-07] MEDS ORDERED: Aspirin Low Dose CHEW TAB* 81 MG PO ONE (00:16)
--- OUTSIDE RECORDS SUMMARY | 2017-09-07 00:38 | XMS REPORT ---
:1940 External Reference #:[id number] Author Organization [facility] Address [address] [address] Phone [phone] Care Team Providers Name Role Phone Douglas Damon MD Primary Care Physician Unavailable Payers Type Date Identification Numbers Payment Provider Subscriber Medicare Primary Effective: Policy Number: Medicare Humberto Phelan 2002 [id number] PayID: [id number] [address] [place] [address] [facility] Part [facility] Policy Number: [id number] [facility] Humberto Phelan PayID: [id number] [address] [place] [address] Problems Date Description Provider Status Onset: 02/21/2016 Paroxysmal atrial fibrillation Young Mittal M.D., Active [facility], [facility] Onset: 02/09/2015 Parkinson's disease Azalea Junior M.D. Active Onset: 02/09/2015 Unexplained weight loss Azalea Junior M.D. Active Onset: 06/21/2016 Low back pain Azalea Junior M.D. Active Onset: 06/21/2016 Restless legs Azalea Junior M.D. Active Onset: 09/25/2016 Essential hypertension Douglas Damon M.D. Active Onset: 11/13/2016 Orthostatic hypotension Douglas Damon M.D. Active Onset: 11/20/2016 Anemia Douglas Damon M.D. Active Onset: 2017 Thoracic and lumbosacral Douglas Damon M.D. Active neuritis Onset: 04/22/2017 Cerebral artery occlusion Douglas Damon M.D. Active Onset: 07/11/2017 Cardiac pacemaker in situ Matthew Lantigua, Active Addison,FACP Onset: 07/15/2017 Chronic atrial fibrillation Young Mittal M.D., Active NARAYAN REYES Onset: 08/27/2017 Disorder of skin AND/OR Douglas Damon M.D. Active subcutaneous tissue Onset: 08/27/2017 Abnormal gait Douglas Damon M.D. Active Onset: 08/03/2014 Atrial fibrillation Young Mittal M.D., Inactive NARAYAN REYES Inactive: 06/16/2017 Onset: 06/15/2015 Dizziness Azalea Junior M.D. Inactive Inactive: 06/16/2017 Onset: 11/20/2016 Cough Douglas Damon M.D. Inactive Inactive: 06/16/2017 Family History Date Family Member(s) Problem(s) Comments Father Heart Disease Mother Heart Disease Social History Type Date Description Comments Lives With Alone Occupation Retired ETOH Use Denies alcohol use Smoking Patient has never smoked Recreational Drug Use Denies Drug Use Daily Caffeine Decaff 1 1/2 cups a day Exercise Type/Frequency Exercises sporadically ocassionally General Hx Text Pt has never smoked cigarettes or used tobacco, was exposed to secondhand smoke. Reports occasional ETOH use, denies drug use, drinks coffee/tea occasionally. Pt does not exercise. Allergies, Adverse Reactions, Alerts Date Description Reaction Status Severity Comments 12/08/2012 Penicillin active Rash 07/17/2016 Zocor active 10/26/2016 Tikosyn active Severe NSVT Medications Medication Date Status Form Strength Qnty SIG Indications Ordering Provider César-Claudio M10 07/29/ Active Tablets 10Meq 14tabs 1 by Douglas Swanson ER mouth Pachikara every day , M.DGrant Magnesium-Oxide 07/22/ Active Tablets 400(241.3m 90tabs 1 by Matthew Swanson g) mg mouth Von Lantigua, every M.D.,FACP evening Atorvastatin 04/08/ Active Tablets 40mg 30tabs 1 by Douglas Calcium 2017 mouth Pachikara every day , M.DGrant Fludrocortisone 04/08/ Active Tablets 0.1mg 30tabs Take One Douglas Acetate 2017 Tablet By ThaddeusikaDarren RoachDGrant Once Daily Hydrocodone-Aceta 12/25/ Active Tablets 5-325mg 10tabs 1 tab M51.16 [place] minophen 2017 three Pachikara times a , M.D. day as needed pain Metoprolol 11/20/ Active Tablets 50mg 60tabs take one I10 [place] Tartrate 2017 tablet by PachikaDarren roachDGrant twice a day Walker 09/09/ Active Misc 1units 4 wheels, Carlos 2016 brakes [place], and [employer] seat--for daily use Roller Walker 06/11/ Active Misc use daily G20 Azalea Banks 2015 as selwyn Junior M.D. to prevent falls R29.6 Carbidopa-Levodopa 01/03/2014 Active Tablets 25-100mg 315tabs take 2 Walnut tabs 8am Pachikara, 1.5 tabs M.D. noon 2tabs 4pm 1.5 tabs 8pm Pain Relief 8 Hour Active Tablets ER 650mg 1 by Unknown mouth three times a day as needed for pain Omeprazole Active Capsules DR 20mg 60caps take one Douglas capsule Thaddeusika, by mouth M.DGrant twice a day before meals Prednisolone Active Suspension 1% 1 drop 4 Unknown Acetate times/ day in Right eye Ketorolac Active Solution 0.5% Unknown Tromethamine Ofloxacin Active Solution 0.3% Unknown (Ophthalmic) Klor-Con M10 07/11/2017 Hx Tablets ER 10Meq 14tabs 1 by Matthew Lantigua, 07/22/2017 every M.D.,FACP day Amlodipine Besylate 06/16/2017 Hx Tablets 2.5mg 30tabs 1 by Matthew Lantigua, 06/16/2017 every M.D.,FACP day Eliquis 04/08/2017 Hx Tablets 2.5mg 60tabs 1 tablet Other - by mouth Ordering 04/22/2017 twice a Provider day. blood thinner. Carafate 02/24/2017 Hx Tablets 1gm 120tabs Take 1 Walnut - Tablet Pachikara, 05/21/2017 By Mouth M.D. At 6Am , 11Am, 5PM, And 9PM (pt not taking) Iron 01/27/2017 Hx Tablets 325(65Fe) 30tabs 1 by Chase Allen, - mg mouth [employer] 04/22/2017 every day Amlodipine Besylate 12/11/2016 Hx Tablets 2.5mg 30tabs Take two Walnut - TABLETs Pachikara, 05/21/2017 By Mouth M.D. Every Morning (no longer taking) Amlodipine Besylate 11/27/2016 Hx Tablets 5mg 30tabs 1 by Walnut - mouth Pachikara, 12/11/2016 every M.D. day Proair Respiclick 11/20/2016 Hx Aerosol 108(90Bas 1units 2 puffs R Douglas - e) 3 times 0 , 2017 mcg/Act a day 5 M.D. with spacer Fluticasone 11/20/2016 Hx Suspension 50mcg/Act 9.900ml 2 sprays R Douglas Propionate - each 0 , 12/25/2016 nostril 5 M.D. daily Doxycycline Hyclate 11/13/2016 Hx Capsules 100mg 20caps 1 cab J [place] - twice a 2 Pachikara, 11/22/2016 day 0 M.D. . 9 Prednisone 11/13/2016 Hx Tablets 10mg 20tabs 4 J Douglas - [id number] 2 Pachikara, 11/22/2016 s 0 M.D. [id number] . ys,2tabx 9 2days,1t abxday. Losartan 11/12/2016 Hx Tablets 50-12.5mg 30tabs take one Walnut Potassium/Hydrochlo - tab Pachikara, rothiazide 11/13/2016 daily M.D. Famotidine 11/07/2016 Hx Tablets 20mg 60tabs 1 tablet Douglas - twice Pachikara, 2017 daily M.D. Fludrocortisone 11/01/2016 Hx Tablets 0.1mg 30tabs 1 by Other Acetate - mouth Ordering 12/25/2016 every Provider day not taking Carafate 11/01/2016 Hx Tablets 1gm 120tabs 1 by Doulgas - mouth at Pachikara, 2017 6am, M.D. 11am, 4pm and 9pm Omeprazole 11/01/[address] 20mg 60caps 1 by Douglas aron Travisika, 2017 twice a M.D. day before meals Hydrocodone-Acetami 08/01/2016 Hx Tablets 5-325mg 30tabs 1 by Douglas kc - mouth Thaddeusika, 08/07/2016 daily M.D. bedtime Acetaminophen 07/17/2016 Hx Capsules 500mg 180caps 2 tab by Harpal sharp 5 Pachikara, 11/05/2016 three 4 M.D. times a . day as 5 needed Clindamycin HCL 05/07/2016 Hx Capsules 150mg 9caps one Joey Longoria - capsule Jorgito, Addison 05/13/2016 by mouth three times a day for 3 days Lisinopril 07/08/2014 Hx Tablets 20mg 1/2 Gen, - tablet Mikal Banks, 06/04/2016 by mouth every day Hydrocodone-Acetami 07/08/2014 Hx Tablets 10-325mg 120tabs 1 tab by Douglas kc - mouth Nelson, 07/17/2016 every 6 M.D. hours as needed Ropinirole HCL 10/04/2013 Hx Tablets 0.25mg 60tabs 2 PO Qhs Azalea Junior, 06/18/2014 M.D. Metoprolol 03/05/2013 Hx Tablets ER 100mg 180tabs 1 tab by Young Dunlap Succinate ER - 24HR mouth Kryie, 03/05/2013 twice a M.D., FAC, day FASNC Metoprolol Tartrate 03/05/2013 Hx Tablets 100mg 180tabs 1/2 tab Andres Tavera - by mouth Von Lantigua, 11/20/2016 twice a M.D.,FACP day 11/06/16 (pt taking 1 po bid s/p [facility] stay) Carbidopa/Levodopa 12/01/2012 Hx Tablets 25-100mg 165tabs take 1-1 Azalea Banks - 1/2 gaye Junior, 01/03/2014 po 4 M.D. times daily as directed (1 2 - 1 2 - 1 08/19 - 1) Tikosyn 10/22/2012 Hx Capsules 250mcg 60caps 1 by Young Dunlap - aron Mittal, 10/26/2016 twice a M.D., [facility], day [facility] Jantoven 10/21/2012 Hx Tablets 2mg 90tabs as Young Mittal, 11/04/2016 M.D., [facility], FASND Metoprolol Tartrate 08/28/2012 Hx Tablets 50mg 270tabs /2 tabs Young Dunlap - by mouth Kyrie, 03/05/2013 twice a M.D., [facility], day FASNC Furosemide 06/16/2012 Hx Tablets 20mg 30tabs 1 by Youngdelphine Mittal, 11/05/2016 every M.D., [facility], morning [facility] Lisinopril 06/15/2012 Hx Tablets 5mg 30tabs 1 tab by Young Dunlap - aron Mittal, 08/02/2014 every M.D., [facility], day [facility] Hydrocodone/Acetami Hx Tablets 5-325mg 40tabs 1 tab po Unknown nophen - qid prn 08/02/2014 Vitamin D3 Hx Capsules 2000Unit 1 by Unknown - mouth 01/22/2016 every day Vitamin B-12 Hx Tablets 1000mcg 1 by Unknown - mouth 12/22/2015 every day Hydrocodone-Acetami Hx Tablets 5-325mg 60tabs 1 by Douglas kc - mouth Pachikara, 07/25/2016 twice M.D. daily prn. Lisinopril Hx Tablets 10mg 1 by Unknown - mouth 11/05/2016 every day Sucralfate Hx Tablets 1gm 1 tablet Unknown - by mouth 04/28/2017 at 6am,11am , 4pm, and 9pm Medications Administered in Office Medication Date Status Form Strength Qnty SIG Indications Ordering Provider Inj, Administered Injection Joey Longoria Regadenoson, 013 Addison Bull 0.1 MG Technetium TC Administered Injection Joye Longoria 99M 013 Addison Bull Tetrofosmin, Per Unit Dose Up To 40 Millicuries Immunizations CPT Code Status Date Vaccine Reaction Lot # [id number] Given 05/21/2017 Influenza Virus Vaccine, [id number] Quadrivalent, Split, Preservative Free 14106 Given 05/21/2017 Pneumococcal Conjugate [id number] Vaccine 13 Valent For Intramuscular Use [id number] Given 08/07/2016 Zoster (Zostavax) no immediate reaction [id number] noted ... hh Vital Signs Date Vital Result Comment 08/27/2017 Weight 123.00 lb Heart Rate 65 /min BP Systolic 120 mmHg BP Diastolic 70 mmHg O2 % BldC Oximetry 98 % 07/18/2017 Weight 123.00 lb Heart Rate 88 /min BP Systolic Sitting 132 mmHg BP Diastolic Sitting 80 mmHg O2 % BldC Oximetry 97 % 07/15/2017 Height 59 inches 4'11" Weight 123.00 lb Heart Rate 88 /min BP Systolic Sitting 130 mmHg BP Diastolic Sitting 78 mmHg Respiratory Rate 16 /min BMI (Body Mass Index) 24.8 kg/m2 07/15/2017 Height 59 inches 4'11" Weight 123.00 lb Heart Rate 92 /min BP Systolic Sitting 134 mmHg Lue reg cuff BP Diastolic Sitting 98 mmHg Lue reg cuff BP Systolic Standing 130 mmHg Lue BP Diastolic Standing 98 mmHg Lue Respiratory Rate 16 /min BMI (Body Mass Index) 24.8 kg/m2 07/02/2017 Height 59 inches 4'11" Weight 118.00 lb Heart Rate 63 /min BP Systolic Sitting 118 mmHg BP Diastolic Sitting 78 mmHg Body Temperature 98.2 F O2 % BldC Oximetry 98 % BMI (Body Mass Index) 23.8 kg/m2 06/18/2017 Height 59 inches 4'11" Weight 118.50 lb Heart Rate 76 /min BP Systolic 110 mmHg BP Diastolic 70 mmHg Body Temperature 98.0 F O2 % BldC Oximetry 97 % BMI (Body Mass Index) 23.9 kg/m2 05/21/2017 Height 59 inches 4'11" Weight 120.50 lb Heart Rate 64 /min irregular BP Systolic 100 mmHg BP Diastolic 62 mmHg BMI (Body Mass Index) 24.3 kg/m2 05/05/2017 Height 59 inches 4'11" Weight 125.00 lb with shoes Heart Rate 84 /min irreg BP Systolic Sitting 130 mmHg Lue reg cuff BP Diastolic Sitting 80 mmHg Lue reg cuff BP Systolic Standing 134 mmHg Lue reg cuff BP Diastolic Standing 90 mmHg Lue reg cuff Respiratory Rate 17 /min BMI (Body Mass Index) 25.2 kg/m2 Ejection Fraction 50-55% date 03/12/17 ECHO 04/22/2017 Height 59 inches 4'11" Weight 125.00 lb Heart Rate 94 /min BP Systolic 148 mmHg BP Diastolic 96 mmHg Body Temperature 97.3 F O2 % BldC Oximetry 99 % BMI (Body Mass Index) 25.2 kg/m2 02/20/2017 Height 59 inches 4'11" Weight 125.00 lb Heart Rate 88 /min BP Systolic Sitting 130 mmHg BP Diastolic Sitting 90 mmHg Respiratory Rate 16 /min BMI (Body Mass Index) 25.2 kg/m2 02/03/2017 Height 59 inches 4'11" Weight 124.00 lb with shoes Heart Rate 90 /min BP Systolic Sitting 156 mmHg Rue reg cuff BP Diastolic Sitting 102 mmHg Rue reg cuff BP Systolic Standing 140 mmHg Rue reg cuff BP Diastolic Standing 96 mmHg Rue reg cuff Respiratory Rate 16 /min BMI (Body Mass Index) 25.0 kg/m2 Ejection Fraction 55-60% 10/23/2016-echo 2017 Weight 125.50 lb Heart Rate 78 /min BP Systolic 128 mmHg BP Diastolic 68 mmHg Body Temperature 96.8 F O2 % BldC Oximetry 98 % 12/25/2016 Weight 127.25 lb Heart Rate 90 /min BP Systolic 128 mmHg BP Diastolic 64 mmHg Body Temperature 96.9 F O2 % BldC Oximetry 98 % 11/22/2016 Weight 130.00 lb Heart Rate 93 /min BP Systolic Sitting 92 mmHg BP Diastolic Sitting 68 mmHg Body Temperature 97.3 F O2 % BldC Oximetry 98 % 11/20/2016 Weight 134.50 lb Heart Rate 69 /min BP Systolic 126 mmHg BP Diastolic 80 mmHg Body Temperature 98.2 F O2 % BldC Oximetry 96 % 11/13/2016 Height 59 inches 4'11" Weight 130.00 lb Heart Rate 76 /min BP Systolic 150 mmHg BP Diastolic 98 mmHg Respiratory Rate 20 /min Pain Level 5 BMI (Body Mass Index) 26.3 kg/m2 11/13/2016 Weight 133.00 lb Heart Rate 88 /min BP Systolic Sitting 162 mmHg BP Diastolic Sitting 118 mmHg Body Temperature 97.6 F O2 % BldC Oximetry 96 % 11/06/2016 Height 59 inches 4'11" Weight 135.00 lb w/shoes Heart Rate 70 /min BP Systolic Sitting 176 mmHg LA reg cuff BP Diastolic Sitting 98 mmHg LA reg cuff BP Systolic Standing 152 mmHg LA reg cuff BP Diastolic Standing 80 mmHg LA reg cuff BMI (Body Mass Index) 27.3 kg/m2 Ejection Fraction 55-60% Echo 10/23/16 09/25/2016 Height 59 inches 4'11" Weight 126.00 lb Heart Rate 62 /min BP Systolic 126 mmHg BP Diastolic 60 mmHg Body Temperature 97.8 F O2 % BldC Oximetry 98 % BMI (Body Mass Index) 25.4 kg/m2 09/23/2016 Weight 123.00 lb Heart Rate 63 /min BP Systolic Sitting 164 mmHg BP Diastolic Sitting 110 mmHg Body Temperature 98.4 F O2 % BldC Oximetry 99 % 08/22/2016 Height 59 inches 4'11" Weight 131.00 lb Heart Rate 60 /min BP Systolic Sitting 112 mmHg BP Diastolic Sitting 68 mmHg Respiratory Rate 16 /min BMI (Body Mass Index) 26.5 kg/m2 08/07/2016 Weight 131.00 lb Heart Rate 63 /min BP Systolic 110 mmHg BP Diastolic 78 mmHg Body Temperature 98.3 F O2 % BldC Oximetry 98 % 07/24/2016 Weight 129.00 lb with shoes Heart Rate 83 /min BP Systolic Sitting 126 mmHg BP Diastolic Sitting 80 mmHg O2 % BldC Oximetry 98 % 07/17/2016 Weight 130.00 lb Heart Rate 72 /min BP Systolic Sitting 138 mmHg BP Diastolic Sitting 84 mmHg Respiratory Rate 14 /min O2 % BldC Oximetry 97 % 06/21/2016 Height 59 inches 4'11" Weight 124.00 lb Heart Rate 68 /min BP Systolic Sitting 140 mmHg BP Diastolic Sitting 80 mmHg Respiratory Rate 16 /min BMI (Body Mass Index) 25.0 kg/m2 05/14/2016 Height 59 inches 4'11" Weight 133.00 lb Heart Rate 62 /min BP Systolic Sitting 136 mmHg left arm, reg cuff BP Diastolic Sitting 90 mmHg left arm, reg cuff BP Systolic Standing 118 mmHg left arm, reg cuff BP Diastolic Standing 90 mmHg left arm, reg cuff Respiratory Rate 16 /min BMI (Body Mass Index) 26.9 kg/m2 Ejection Fraction 75% 11/06/12 NLM 05/01/2016 Height 59 inches 4'11" Weight 135.00 lb w/ shoes Heart Rate 60 /min BP Systolic Sitting 122 mmHg Lue, reg cuff BP Diastolic Sitting 84 mmHg Lue, reg cuff BP Systolic Standing 116 mmHg Lue BP Diastolic Standing 80 mmHg Lue Respiratory Rate 16 /min BMI (Body Mass Index) 27.3 kg/m2 Ejection Fraction 58% as of 02/07/12 echo 04/09/2016 Height 59 inches 4'11" Weight 126.00 lb Heart Rate 68 /min BP Systolic Sitting 108 mmHg BP Diastolic Sitting 60 mmHg Respiratory Rate 17 /min BMI (Body Mass Index) 25.4 kg/m2 02/21/2016 Height 59 inches 4'11" Weight 131.00 lb w/ shoes Heart Rate 68 /min reg BP Systolic Sitting 114 mmHg Lue, reg cuff BP Diastolic Sitting 64 mmHg Lue, reg cuff BP Systolic Standing 104 mmHg Lue BP Diastolic Standing 70 mmHg Lue Respiratory Rate 16 /min BMI (Body Mass Index) 26.5 kg/m2 Ejection Fraction 58% as of 02/07/12 echo 10/19/2015 Height 59 inches 4'11" Heart Rate 68 /min BP Systolic Sitting 118 mmHg BP Diastolic Sitting 82 mmHg Respiratory Rate 16 /min 06/15/2015 Height 59 inches 4'11" Heart Rate 64 /min BP Systolic Sitting 132 mmHg BP Diastolic Sitting 82 mmHg Respiratory Rate 16 /min 03/14/2015 Height 59 inches 4'11" Heart Rate 60 /min BP Systolic Sitting 158 mmHg LA, reg cuff BP Diastolic Sitting 92 mmHg LA, reg cuff BP Systolic Standing 146 mmHg LA BP Diastolic Standing 84 mmHg LA Respiratory Rate 16 /min Ejection Fraction 58% 02/07/2012 02/09/2015 Height 59 inches 4'11" Weight 132.00 lb Heart Rate 56 /min BP Systolic Sitting 114 mmHg BP Diastolic Sitting 60 mmHg Respiratory Rate 16 /min BMI (Body Mass Index) 26.7 kg/m2 10/13/2014 Height 59 inches 4'11" Heart Rate 68 /min BP Systolic Sitting 128 mmHg BP Diastolic Sitting 76 mmHg Respiratory Rate 16 /min 08/03/2014 Height 59 inches 4'11" Weight 138.00 lb with shoes Heart Rate 74 /min BP Systolic 180 mmHg Ra reg cuff BP Diastolic 98 mmHg Ra reg cuff BP Systolic Sitting 180 mmHg LA reg cuff BP Diastolic Sitting 92 mmHg LA reg cuff BP Systolic Standing 122 mmHg LA reg cuff BP Diastolic Standing 80 mmHg LA reg cuff BP Systolic Recheck 160 mmHg Ra reg cuff BP Diastolic Recheck 90 mmHg Ra reg cuff Respiratory Rate 16 /min BMI (Body Mass Index) 27.9 kg/m2 06/28/2014 Height 59 inches 4'11" Weight 147.00 lb Heart Rate 60 /min BP Systolic Sitting 118 mmHg BP Diastolic Sitting 72 mmHg Respiratory Rate 16 /min BMI (Body Mass Index) 29.7 kg/m2 08/26/2013 Heart Rate 64 /min BP Systolic Sitting 130 mmHg BP Diastolic Sitting 78 mmHg Respiratory Rate 16 /min 07/12/2013 Height 59 inches 4'11" Weight 153.00 lb Heart Rate 62 /min BP Systolic Sitting 158 mmHg LA reg cuff BP Diastolic Sitting 112 mmHg LA reg cuff BP Systolic Standing 144 mmHg LA BP Diastolic Standing 86 mmHg LA BMI (Body Mass Index) 30.9 kg/m2 07/09/2013 Heart Rate 67 /min BP Systolic Sitting 110 mmHg BP Diastolic Sitting 60 mmHg Respiratory Rate 18 /min 03/12/2013 Height 60 inches 5'0" Weight 155.00 lb Heart Rate 64 /min BP Systolic Sitting 136 mmHg BP Diastolic Sitting 80 mmHg Respiratory Rate 12 /min BMI (Body Mass Index) 30.3 kg/m2 12/08/2012 Heart Rate 64 /min BP Systolic Sitting 142 mmHg BP Diastolic Sitting 78 mmHg Respiratory Rate 16 /min Results Test Date Test Result H/L Range Note Basic Metabolic Panel 07/12/2017 Sodium 141 mmol/L 133-145 Potassium 3.4 mmol/L Low 3.5-5.0 Chloride 102 mmol/L 101-111 Co2 Carbon Dioxide 30 mmol/L 22-32 Anion Gap 9 mmol/L 2-11 Glucose 121 mg/dL High 70-100 Blood Urea Nitrogen 24 mg/dL 6-24 Creatinine 0.89 mg/dL 0.51-0.95 BUN/Creatinine Ratio 27.0 High 8-20 Calcium 9.2 mg/dL 8.6-10.3 Egfr Non- 61.2 >60 Egfr 78.7 >60 1 Laboratory test finding 07/12/2017 Magnesium 1.5 mg/dL Low 1.9-2.7 Inr/Protime 07/12/2017 Inr 0.99 0.89-1.11 Urinalysis Profile 06/16/2017 Urine Color Yellow Urine Appearance Clear Urine Specific Nixa 1.013 1.010-1.030 Urine pH 6.0 5-9 Urine Urobilinogen Negative Negative Urine Ketones Trace Negative Urine Protein Negative Negative Urine Leukocytes Trace Negative Urine Blood 1+ Negative Urine Nitrite Negative Negative Urine Bilirubin Negative Negative Urine Glucose Negative Negative Urine White Blood Cell 1+(6-10/hpf) Absent Urine Red Blood Cell 3+(>10/hpf) Absent Urine Bacteria Absent Absent Urine Squamous Epithelial Cell Present Absent Urine Culture And Sensitivities 06/16/2017 Urine Culture SEE RESULT BELOW 2 Type & Screen 06/15/2017 Patient Blood Type O Positive Antibody Screen NEGATIVE Comp Metabolic Panel 06/15/2017 Sodium 140 mmol/L 133-145 Potassium 2.8 mmol/L Low 3.5-5.0 Chloride 102 mmol/L 101-111 Co2 Carbon Dioxide 29 mmol/L 22-32 Anion Gap 9 mmol/L 2-11 Glucose 105 mg/dL High 70-100 Blood Urea Nitrogen 24 mg/dL 6-24 Creatinine 1.02 mg/dL High 0.51-0.95 BUN/Creatinine Ratio 23.5 High 8-20 Calcium 9.4 mg/dL 8.6-10.3 Total Protein 7.1 g/dL 6.4-8.9 Albumin 4.3 g/dL 3.2-5.2 Globulin 2.8 g/dL 2-4 Albumin/Globulin Ratio 1.5 1-3 Total Bilirubin 0.90 mg/dL 0.2-1.0 Alkaline Phosphatase 267 U/L High 34-104 Alt 6 U/L Low 7-52 Ast 49 U/L High 13-39 Egfr Non- 52.3 >60 Egfr 67.2 >60 3 CBC Auto Diff 06/15/2017 White Blood Count 6.9 10^3/uL 3.5-10.8 Red Blood Count 3.71 10^6/uL Low 4.0-5.4 Hemoglobin 11.6 g/dL Low 12.0-16.0 Hematocrit 35 % 35-47 Mean Corpuscular Volume 93 fL 80-97 Mean Corpuscular Hemoglobin 31 pg 27-31 Mean Corpuscular HGB Conc 33 g/dL 31-36 Red Cell Distribution Width 14 % 10.5-15 Platelet Count 237 10^3/uL 150-450 Mean Platelet Volume 9 um3 7.4-10.4 Abs Neutrophils 4.6 10^3/uL 1.5-7.7 Abs Lymphocytes 1.4 10^3/uL 1.0-4.8 Abs Monocytes 0.7 10^3/uL 0-0.8 Abs Eosinophils 0.2 10^3/uL 0-0.6 Abs Basophils 0.1 10^3/uL 0-0.2 Abs Nucleated RBC 0 10^3/uL Granulocyte % 66.0 % 38-83 Lymphocyte % 19.8 % Low 25-47 Monocyte % 10.5 % High 1-9 Eosinophil % 2.7 % 0-6 Basophil % 1.0 % 0-2 Nucleated Red Blood Cells % 0 Laboratory test finding 06/15/2017 Partial Thrombo Time 26.6 seconds 26.0 -36.3 PTT Inr/Protime 06/15/2017 Inr 0.98 0.89-1.11 Laboratory test finding 05/12/2017 Magnesium 2.0 mg/dL 1.9-2.7 Troponin-I (TnI) 0.00 ng/mL <0.04 TSH (Thyroid Stim Horm) 0.68 mcIU/mL 0.34-5.60 Inr/Protime 05/12/2017 Inr 0.91 0.89-1.11 Laboratory test finding 05/12/2017 Partial Thrombo Time 27.0 seconds 26.0 -36.3 PTT Lactic Acid 1.1 mmol/L 0.5-2.0 4 Comp Metabolic Panel 05/12/2017 Sodium 140 mmol/L 133-145 Potassium 3.0 mmol/L Low 3.5-5.0 Chloride 104 mmol/L 101-111 Co2 Carbon Dioxide 27 mmol/L 22-32 Anion Gap 9 mmol/L 2-11 Glucose 99 mg/dL 70-100 Blood Urea Nitrogen 17 mg/dL 6-24 Creatinine 0.92 mg/dL 0.51-0.95 BUN/Creatinine Ratio 18.5 8-20 Calcium 9.5 mg/dL 8.6-10.3 Total Protein 7.1 g/dL 6.4-8.9 Albumin 4.2 g/dL 3.2-5.2 Globulin 2.9 g/dL 2-4 Albumin/Globulin Ratio 1.4 1-3 Total Bilirubin 0.70 mg/dL 0.2-1.0 Alkaline Phosphatase 101 U/L 34-104 Alt < 3 U/L Low 7-52 Ast 10 U/L Low 13-39 Egfr Non- 58.9 >60 Egfr 75.7 >60 5 CBC Auto Diff 05/12/2017 White Blood Count 8.7 10^3/uL 3.5-10.8 Red Blood Count 4.08 10^6/uL 4.0-5.4 Hemoglobin 12.5 g/dL 12.0-16.0 Hematocrit 38 % 35-47 Mean Corpuscular Volume 93 fL 80-97 Mean Corpuscular Hemoglobin 31 pg 27-31 Mean Corpuscular HGB Conc 33 g/dL 31-36 Red Cell Distribution Width 15 % 10.5-15 Platelet Count 256 10^3/uL 150-450 Mean Platelet Volume 8 um3 7.4-10.4 Abs Neutrophils 6.8 10^3/uL 1.5-7.7 Abs Lymphocytes 1.2 10^3/uL 1.0-4.8 Abs Monocytes 0.6 10^3/uL 0-0.8 Abs Eosinophils 0.1 10^3/uL 0-0.6 Abs Basophils 0.1 10^3/uL 0-0.2 Abs Nucleated RBC 0 10^3/uL Granulocyte % 77.6 % 38-83 Lymphocyte % 14.0 % Low 25-47 Monocyte % 6.9 % 1-9 Eosinophil % 0.6 % 0-6 Basophil % 0.9 % 0-2 Nucleated Red Blood Cells % 0 Laboratory test finding 03/12/2017 TSH (Thyroid Stim Horm) 0.61 mcIU/mL 0.34-5.60 Type & Screen 03/12/2017 Patient Blood Type O Positive Antibody Screen NEGATIVE Laboratory test finding 03/12/2017 Lactic Acid 0.8 mmol/L 0.5-2.0 6 CBC Auto Diff 03/12/2017 White Blood Count 11.4 10^3/uL High 3.5-10.8 Red Blood Count 4.12 10^6/uL 4.0-5.4 Hemoglobin 12.1 g/dL 12.0-16.0 Hematocrit 38 % 35-47 Mean Corpuscular Volume 92 fL 80-97 Mean Corpuscular Hemoglobin 30 pg 27-31 Mean Corpuscular HGB Conc 32 g/dL 31-36 Red Cell Distribution Width 18 % High 10.5-15 Platelet Count 279 10^3/uL 150-450 Mean Platelet Volume 8 um3 7.4-10.4 Abs Neutrophils 9.5 10^3/uL High 1.5-7.7 Abs Lymphocytes 1.1 10^3/uL 1.0-4.8 Abs Monocytes 0.7 10^3/uL 0-0.8 Abs Eosinophils 0 10^3/uL 0-0.6 Abs Basophils 0.1 10^3/uL 0-0.2 Abs Nucleated RBC 0 10^3/uL Granulocyte % 83.3 % High 38-83 Lymphocyte % 9.9 % Low 25-47 Monocyte % 6.0 % 1-9 Eosinophil % 0.3 % 0-6 Basophil % 0.5 % 0-2 Nucleated Red Blood Cells % 0 Comp Metabolic Panel 03/12/2017 Sodium 138 mmol/L 133-145 Potassium 3.9 mmol/L 3.5-5.0 Chloride 104 mmol/L 101-111 Co2 Carbon Dioxide 27 mmol/L 22-32 Anion Gap 7 mmol/L 2-11 Glucose 102 mg/dL High 70-100 Blood Urea Nitrogen 19 mg/dL 6-24 Creatinine 0.91 mg/dL 0.51-0.95 BUN/Creatinine Ratio 20.9 High 8-20 Calcium 9.5 mg/dL 8.6-10.3 Total Protein 7.2 g/dL 6.4-8.9 Albumin 4.2 g/dL 3.2-5.2 Globulin 3.0 g/dL 2-4 Albumin/Globulin Ratio 1.4 1-3 Total Bilirubin 0.80 mg/dL 0.2-1.0 Alkaline Phosphatase 69 U/L 34-104 Alt < 3 U/L Low 7-52 Ast 11 U/L Low 13-39 Egfr Non- 59.6 >60 Egfr 76.7 >60 7 Lipid Profile (Trig/Chol/HDL) 03/12/2017 Triglycerides 98 mg/dL 8 Cholesterol 185 mg/dL 9 HDL Cholesterol 59.0 mg/dL 10 LDL Cholesterol 106 mg/dL 11 Laboratory test finding 03/12/2017 Troponin-I (TnI) 0.01 ng/mL <0.04 Urinalysis Profile 03/12/2017 Urine Color Straw Urine Appearance Cloudy Urine Specific Nixa 1.010 1.010-1.030 Urine pH 7.0 5-9 Urine Urobilinogen Negative Negative Urine Ketones Negative Negative Urine Protein Negative Negative Urine Leukocytes Negative Negative Urine Blood 1+ Negative Urine Nitrite Negative Negative Urine Bilirubin Negative Negative Urine Glucose Negative Negative Urine White Blood Cell Trace(0-5/hpf) Absent Urine Red Blood Cell 2+(6-10/hpf) Absent Urine Bacteria Absent Absent Urine Squamous Epithelial Cell Present Absent Laboratory test finding 03/12/2017 Partial Thrombo Time 24.9 seconds Low 26.0-36.3 PTT Inr/Protime 03/12/2017 Inr 0.94 0.89-1.11 CBC Auto Diff 12/31/2016 White Blood Count 7.6 10^3/uL 3.5-10.8 Red Blood Count 3.55 10^6/uL Low 4.0-5.4 Hemoglobin 10.3 g/dL Low 12.0-16.0 Hematocrit 32 % Low 35-47 Mean Corpuscular Volume 89 fL 80-97 Mean Corpuscular Hemoglobin 29 pg 27-31 Mean Corpuscular HGB Conc 32 g/dL 31-36 Red Cell Distribution Width 16 % High 10.5-15 Platelet Count 280 10^3/uL 150-450 Mean Platelet Volume 8 um3 7.4-10.4 Abs Neutrophils 6.1 10^3/uL 1.5-7.7 Abs Lymphocytes 0.9 10^3/uL Low 1.0-4.8 Abs Monocytes 0.5 10^3/uL 0-0.8 Abs Eosinophils 0.1 10^3/uL 0-0.6 Abs Basophils 0 10^3/uL 0-0.2 Abs Nucleated RBC 0 10^3/uL Granulocyte % 80.4 % 38-83 Lymphocyte % 12.0 % Low 25-47 Monocyte % 6.3 % 1-9 Eosinophil % 0.8 % 0-6 Basophil % 0.5 % 0-2 Nucleated Red Blood Cells % 0 Basic Metabolic Panel 12/31/2016 Sodium 137 mmol/L 133-145 Potassium 4.4 mmol/L 3.5-5.0 Chloride 104 mmol/L 101-111 Co2 Carbon Dioxide 23 mmol/L 22-32 Anion Gap 10 mmol/L 2-11 Glucose 103 mg/dL High 70-100 Blood Urea Nitrogen 29 mg/dL High 6-24 Creatinine 1.05 mg/dL High 0.51-0.95 BUN/Creatinine Ratio 27.6 High 8-20 Calcium 9.1 mg/dL 8.6-10.3 Egfr Non- 50.7 >60 Egfr 65.2 >60 12 CBC Auto Diff 11/20/2016 White Blood Count 10.7 10^3/uL 3.5-10.8 Red Blood Count 3.03 10^6/uL Low 4.0-5.4 Hemoglobin 9.1 g/dL Low 12.0-16.0 Hematocrit 28 % Low 35-47 Mean Corpuscular Volume 94 fL 80-97 Mean Corpuscular Hemoglobin 30 pg 27-31 Mean Corpuscular HGB Conc 32 g/dL 31-36 Red Cell Distribution Width 17 % High 10.5-15 Platelet Count 368 10^3/uL 150-450 Mean Platelet Volume 8 um3 7.4-10.4 Abs Neutrophils 9.1 10^3/uL High 1.5-7.7 Abs Lymphocytes 1.0 10^3/uL 1.0-4.8 Abs Monocytes 0.5 10^3/uL 0-0.8 Abs Eosinophils 0 10^3/uL 0-0.6 Abs Basophils 0 10^3/uL 0-0.2 Abs Nucleated RBC 0.01 10^3/uL Granulocyte % 85.6 % High 38-83 Lymphocyte % 9.2 % Low 25-47 Monocyte % 4.6 % 1-9 Eosinophil % 0.3 % 0-6 Basophil % 0.3 % 0-2 Nucleated Red Blood Cells % 0 Laboratory test 10/24/2016 Surgical Interface SEE RESULT BELOW 13 finding Order CBC Auto Diff 10/23/2016 White Blood Count 9.8 10^3/uL 3.5-10.8 Red Blood Count 2.54 10^6/uL Low 4.0-5.4 Hemoglobin 8.1 g/dL Low 12.0-16.0 Hematocrit 25 % Low 35-47 Mean Corpuscular Volume 97 fL 80-97 Mean Corpuscular Hemoglobin 32 pg High 27-31 Mean Corpuscular HGB Conc 33 g/dL 31-36 Red Cell Distribution Width 15 % 10.5-15 Platelet Count 254 10^3/uL 150-450 Mean Platelet Volume 9 um3 7.4-10.4 Abs Neutrophils 8.4 10^3/uL High 1.5-7.7 Abs Lymphocytes 0.7 10^3/uL Low 1.0-4.8 Abs Monocytes 0.6 10^3/uL 0-0.8 Abs Eosinophils 0 10^3/uL 0-0.6 Abs Basophils 0.1 10^3/uL 0-0.2 Abs Nucleated RBC 0 10^3/uL Granulocyte % 86.0 % High 38-83 Lymphocyte % 7.5 % Low 25-47 Monocyte % 5.7 % 1-9 Eosinophil % 0.1 % 0-6 Basophil % 0.7 % 0-2 Nucleated Red Blood Cells % 0 Inr/Protime 10/23/2016 Inr 4.03 High 0.89-1.11 Laboratory test finding 10/23/2016 Lactic Acid 0.7 mmol/L 0.5-2.0 14 Comp Metabolic Panel 10/23/2016 Sodium 136 mmol/L 133-145 Potassium 4.1 mmol/L 3.5-5.0 Chloride 104 mmol/L 101-111 Co2 Carbon Dioxide 22 mmol/L 22-32 Anion Gap 10 mmol/L 2-11 Glucose 108 mg/dL High 70-100 Blood Urea Nitrogen 62 mg/dL High 6-24 Creatinine 2.17 mg/dL High 0.51-0.95 BUN/Creatinine Ratio 28.6 High 8-20 Calcium 9.5 mg/dL 8.6-10.3 Total Protein 7.3 g/dL 6.4-8.9 Albumin 4.2 g/dL 3.2-5.2 Globulin 3.1 g/dL 2-4 Albumin/Globulin Ratio 1.4 1-3 Total Bilirubin 0.60 mg/dL 0.2-1.0 Alkaline Phosphatase 52 U/L 34-104 Alt < 3 U/L Low 7-52 Ast 10 U/L Low 13-39 Egfr Non- 21.9 >60 Egfr 28.2 >60 15 Laboratory test finding 10/23/2016 Magnesium 2.4 mg/dL 1.9-2.7 Troponin-I (TnI) 0.01 ng/mL <0.04 16 TSH (Thyroid Stim Horm) 0.35 mcIU/mL 0.34-5.60 Urinalysis Profile 10/23/2016 Urine Color Yellow Urine Appearance Clear Urine Specific [place] 1.011 1.010-1.030 Urine pH 5.0 5-9 Urine Urobilinogen Negative Negative Urine Ketones Trace Negative Urine Protein Negative Negative Urine Leukocytes Trace Negative Urine Blood Negative Negative Urine Nitrite Negative Negative Urine Bilirubin Negative Negative Urine Glucose Negative Negative Urine White Blood Cell Trace(0-5/hpf) Absent Urine Red Blood Cell Absent Absent Urine Bacteria Absent Absent Urine Squamous Epithelial Cell Present Absent Urine Hyaline Casts Present Absent Urine Culture And 10/23/2016 Urine Culture SEE RESULT BELOW 17 Sensitivities Inr/Protime 10/07/2016 Inr 2.99 High 0.89-1.11 18 Inr/Protime 09/25/2016 Inr 3.98 High 0.89-1.11 18 Inr/Protime 09/19/2016 Inr 3.51 High 0.89-1.11 Inr/Protime 08/16/2016 Inr 2.85 High 0.89-1.11 18 Comp Metabolic Panel 08/16/2016 Sodium 138 mmol/L 133-145 Potassium 4.3 mmol/L 3.5-5.0 Chloride 103 mmol/L 101-111 Co2 Carbon Dioxide 26 mmol/L 22-32 Anion Gap 9 mmol/L 2-11 Glucose 107 mg/dL High 70-100 Blood Urea Nitrogen 21 mg/dL 6-24 Creatinine 0.90 mg/dL 0.51-0.95 BUN/Creatinine Ratio 23.3 High 8-20 Calcium 9.2 mg/dL 8.6-10.3 Total Protein 6.8 g/dL 6.4-8.9 Albumin 4.2 g/dL 3.2-5.2 Globulin 2.6 g/dL 2-4 Albumin/Globulin Ratio 1.6 1-3 Total Bilirubin 0.70 mg/dL 0.2-1.0 Alkaline Phosphatase 70 U/L 34-104 Alt < 3 U/L Low 7-52 Ast 9 U/L Low 13-39 Egfr Non- 60.6 >60 Egfr 77.9 >60 19 Lipid Profile (Trig/Chol/HDL) 08/16/2016 Triglycerides 142 mg/dL 20 Cholesterol 224 mg/dL 21 HDL Cholesterol 55.5 mg/dL 22 LDL Cholesterol 140 mg/dL 23 Inr/Protime 07/23/2016 Inr 2.85 High 0.89-1.11 18 Laboratory test finding 07/18/2016 Magnesium 2.3 mg/dL 1.9-2.7 24, 25 Basic Metabolic Panel 07/18/2016 Sodium 137 mmol/L 133-145 24 Potassium 4.9 mmol/L 3.5-5.0 24 Chloride 104 mmol/L 101-111 24 Co2 Carbon Dioxide 27 mmol/L 22-32 24 Anion Gap 6 mmol/L 2-11 24 Glucose 102 mg/dL High 70-100 24 Blood Urea Nitrogen 33 mg/dL High 6-24 24 Creatinine 0.94 mg/dL 0.51-0.95 24 BUN/Creatinine Ratio 35.1 High 8-20 24 Calcium 9.4 mg/dL 8.6-10.3 24 Egfr Non- 57.6 >60 24 Egfr 74.1 >60 24, 26 Laboratory test finding 07/01/2016 Magnesium 2.1 mg/dL 1.9-2.7 Basic Metabolic Panel 07/01/2016 Sodium 138 mmol/L 133-145 Potassium 4.3 mmol/L 3.5-5.0 Chloride 102 mmol/L 101-111 Co2 Carbon Dioxide 29 mmol/L 22-32 Anion Gap 7 mmol/L 2-11 Glucose 104 mg/dL High 70-100 Blood Urea Nitrogen 23 mg/dL 6-24 Creatinine 0.94 mg/dL 0.51-0.95 BUN/Creatinine Ratio 24.5 High 8-20 Calcium 9.2 mg/dL 8.6-10.3 Egfr Non- 57.6 >60 Egfr 74.1 >60 27 Inr/Protime 07/01/2016 Inr 1.91 High 0.89-1.11 28 Inr/Protime 06/21/2016 Inr 2.89 High 0.89-1.11 28 Inr/Protime 06/13/2016 Inr 3.30 High 0.89-1.11 Inr/Protime 06/07/2016 Inr 1.58 High 0.89-1.11 28 Inr/Protime 05/29/2016 Inr 1.61 High 0.89-1.11 Laboratory test 05/07/2016 Surgical Pathology SEE RESULT BELOW 29 finding Inr/Protime 05/03/2016 Inr 2.03 High 0.89-1.11 Pre Cath Panel 05/03/2016 Partial Thrombo 31.8 seconds 26.0-36.3 Time PTT CBC Auto Diff 05/03/2016 White Blood Count 8.4 10^3/uL 3.5-10.8 Red Blood Count 3.32 10^6/uL Low 4.0-5.4 Hemoglobin 10.3 g/dL Low 12.0-16.0 Hematocrit 32 % Low 35-47 Mean Corpuscular Volume 95 fL 80-97 Mean Corpuscular Hemoglobin 31 pg 27-31 Mean Corpuscular HGB Conc 33 g/dL 31-36 Red Cell Distribution Width 14 % 10.5-15 Platelet Count 268 10^3/uL 150-450 Mean Platelet Volume 9 um3 7.4-10.4 Abs Neutrophils 6.8 10^3/uL 1.5-7.7 Abs Lymphocytes 0.9 10^3/uL Low 1.0-4.8 Abs Monocytes 0.5 10^3/uL 0-0.8 Abs Eosinophils 0.1 10^3/uL 0-0.6 Abs Basophils 0 10^3/uL 0-0.2 Abs Nucleated RBC 0 10^3/uL Granulocyte % 81.2 % 38-83 Lymphocyte % 11.1 % Low 25-47 Monocyte % 6.5 % 1-9 Eosinophil % 0.6 % 0-6 Basophil % 0.6 % 0-2 Nucleated Red Blood Cells % 0 Basic Metabolic Panel 05/03/2016 Sodium 138 mmol/L 133-145 Potassium 4.7 mmol/L 3.5-5.0 Chloride 105 mmol/L 101-111 Co2 Carbon Dioxide 25 mmol/L 22-32 Anion Gap 8 mmol/L 2-11 Glucose 95 mg/dL 70-100 Blood Urea Nitrogen 31 mg/dL High 6-24 Creatinine 1.21 mg/dL High 0.51-0.95 BUN/Creatinine Ratio 25.6 High 8-20 Calcium 8.9 mg/dL 8.6-10.3 Egfr Non- 43.0 >60 Egfr 55.3 >60 30 Laboratory test finding 04/09/2016 Free T4 (Free Thyroxine) 0.88 ng/dL 0.61-1.12 TSH (Thyroid Stim Horm) 0.50 mcIU/mL 0.34-5.60 Vitamin B12 411 pg/mL 180-914 31 CBC Auto Diff 04/09/2016 White Blood Count 6.1 10^3/uL 3.5-10.8 Red Blood Count 3.53 10^6/uL Low 4.0-5.4 Hemoglobin 10.9 g/dL Low 12.0-16.0 Hematocrit 33 % Low 35-47 Mean Corpuscular Volume 94 fL 80-97 Mean Corpuscular Hemoglobin 31 pg 27-31 Mean Corpuscular HGB Conc 33 g/dL 31-36 Red Cell Distribution Width 14 % 10.5-15 Platelet Count 257 10^3/uL 150-450 Mean Platelet Volume 10 um3 7.4-10.4 Abs Neutrophils 4.3 10^3/uL 1.5-7.7 Abs Lymphocytes 1.2 10^3/uL 1.0-4.8 Abs Monocytes 0.3 10^3/uL 0-0.8 Abs Eosinophils 0.1 10^3/uL 0-0.6 Abs Basophils 0.1 10^3/uL 0-0.2 Abs Nucleated RBC 0 10^3/uL Granulocyte % 71.3 % 38-83 Lymphocyte % 20.0 % Low 25-47 Monocyte % 5.6 % 1-9 Eosinophil % 1.4 % 0-6 Basophil % 1.7 % 0-2 Nucleated Red Blood Cells % 0 Comp Metabolic Panel 04/09/2016 Albumin 3.8 g/dL 3.2-5.2 Total Bilirubin 0.40 mg/dL 0.2-1.0 Sodium 140 mmol/L 133-145 Potassium 4.2 mmol/L 3.5-5.0 Chloride 107 mmol/L 101-111 Co2 Carbon Dioxide 25 mmol/L 22-32 Anion Gap 8 mmol/L 2-11 Glucose 134 mg/dL High 70-100 Blood Urea Nitrogen 33 mg/dL High 6-24 Creatinine 1.19 mg/dL High 0.51-0.95 BUN/Creatinine Ratio 27.7 High 8-20 Calcium 9.0 mg/dL 8.6-10.3 Total Protein 6.7 g/dL 6.4-8.9 Globulin 2.9 g/dL 2-4 Albumin/Globulin Ratio 1.3 1-3 Alkaline Phosphatase 88 U/L 34-104 Alt 6 U/L Low 7-52 Ast 47 U/L High 13-39 Egfr Non- 43.9 >60 Egfr 56.4 >60 32 Inr/Protime 11/07/2015 Inr 2.32 High 0.89-1.11 Laboratory test finding 01/02/2015 Inr 1.58 High 0.78-1.07 Inr/Protime 06/02/2014 Inr 1.65 High 0.85-1.06 Comp Metabolic Panel 06/02/2014 Sodium 137 mmol/L 133-145 Potassium 4.6 mmol/L 3.7-5.6 Chloride 101 mmol/L 101-111 Co2 Carbon Dioxide 29 mmol/L 22-32 Anion Gap 7 mmol/L 2-11 Glucose 112 mg/dL High 70-100 Blood Urea Nitrogen 22 mg/dL 6-24 Creatinine 0.97 mg/dL High 0.51-0.95 BUN/Creatinine Ratio 22.7 High 8-20 Calcium 9.1 mg/dL 8.6-10.3 Total Protein 6.6 g/dL 6.4-8.9 Albumin 3.9 g/dL 3.2-5.2 Globulin 2.7 g/dL 2-4 Albumin/Globulin Ratio 1.4 1-3 Total Bilirubin 0.60 mg/dL 0.2-1.0 Alkaline Phosphatase 63 U/L 34-104 Alt 5 U/L Low 7-52 Ast 11 U/L Low 13-39 Egfr Non- 55.8 >60 Egfr 71.8 >60 33 Lipid Profile (Trig/Chol/HDL) 06/02/2014 Triglycerides 144 mg/dL 34 Cholesterol 165 mg/dL 35 HDL Cholesterol 39.6 mg/dL 36 LDL Cholesterol 97 mg/dL 37 CBC Auto Diff 06/02/2014 White Blood Count 8.0 10^3/uL 4.8-10.8 Red Blood Count 3.44 10^6/uL Low 4.0-5.4 Hemoglobin 10.8 g/dL Low 12.0-16.0 Hematocrit 33 % Low 35-47 Mean Corpuscular Volume 95 fL 80-97 Mean Corpuscular Hemoglobin 32 pg High 27-31 Mean Corpuscular HGB Conc 33 g/dL 31-36 Red Cell Distribution Width 13 % 10.5-15 Platelet Count 305 10^3/uL 150-450 Mean Platelet Volume 9 um3 7.4-10.4 Abs Neutrophils 6.5 10^3/uL 1.5-7.7 Abs Lymphocytes 0.9 10^3/uL Low 1.0-4.8 Abs Monocytes 0.5 10^3/uL 0-0.8 Abs Eosinophils 0.1 10^3/uL 0-0.6 Abs Basophils 0.1 10^3/uL 0-0.2 Abs Nucleated RBC 0.01 10^3/uL Granulocyte % 81.2 % 38-83 Lymphocyte % 11.4 % Low 25-47 Monocyte % 6.2 % 1-9 Eosinophil % 0.6 % 0-6 Basophil % 0.6 % 0-2 Nucleated Red Blood Cells % 0.1 Laboratory test finding 06/02/2014 Vitamin B12 209 pg/mL 180-914 38 TSH (Thyroid Stimulating Horm) 0.44 IU/mL 0.34-5.60 CRP High Sensitivity 13.43 mg/L 39 Laboratory test 03/28/2014 Inr 2.50 High 0.85-1.06 finding Laboratory test 03/18/2014 Inr 1.42 High 0.85-1.06 finding Laboratory test 02/24/2014 Inr 3.41 High 0.85-1.06 finding Laboratory test 02/04/2014 Inr 1.99 High 0.85-1.06 finding Laboratory test 01/20/2014 Inr 1.67 High 0.85-1.06 finding Laboratory test 11/01/2013 Inr 2.34 High 0.85-1.06 finding Inr/Protime 10/04/2013 Inr 3.57 High 0.85-1.06 Laboratory test 07/29/2013 Inr 1.95 High 0.85-1.06 40 finding Laboratory test 07/22/2013 C Reactive Protein < 0.5 mg/dL Less than 0.5 finding Erythrocyte Sed Rate 15 mm/Hr 0-40 Jolly (Anti-Nuclear AB) Screen Negative Negative 41 Rheumatoid Factor <15 IU/mL <15 42 Laboratory test finding 07/22/2013 Inr 4.62 High 0.85-1.06 43 Laboratory test finding 06/02/2013 Inr 3.08 High 0.87-0.97 Basic Metabolic Panel 06/02/2013 Sodium 138 mmol/L 133-145 Potassium 4.4 mmol/L 3.5-5.0 Chloride 104 mmol/L 101-111 Co2 Carbon Dioxide 27.0 mmol/L 22-32 Anion Gap 7.0 mmol/L 2-11 Glucose 88 mg/dL 70-100 Blood Urea Nitrogen 17 mg/dL 6-24 Creatinine 1.00 mg/dL 0.50-1.40 BUN/Creatinine Ratio 17.0 8-20 Calcium 9.2 mg/dL 8.1-9.9 Egfr Non- 54.1 >60 Egfr 69.5 >60 44 Laboratory test finding 06/02/2013 Magnesium 2.3 mg/dL 1.7-2.6 Laboratory test finding 04/07/2013 Inr 2.42 High 0.87-0.97 Laboratory test finding 03/29/2013 Inr 1.66 High 0.87-0.97 Laboratory test finding 03/22/2013 Inr 1.79 High 0.87-0.97 Basic Metabolic Panel 01/06/2013 Sodium 142 mmol/L 133-145 Potassium 3.8 mmol/L 3.5-5.0 Chloride 109 mmol/L 101-111 Co2 Carbon Dioxide 26.0 mmol/L 22-32 Anion Gap 7.0 mmol/L 2-11 Glucose 119 mg/dL High 70-100 Blood Urea Nitrogen 15 mg/dL 6-24 Creatinine 1.00 mg/dL 0.50-1.40 BUN/Creatinine Ratio 15.0 8-20 Calcium 9.2 mg/dL 8.1-9.9 Egfr Non- 54.2 >60 Egfr 69.7 >60 45 Laboratory test finding 01/06/2013 Magnesium 2.1 mg/dL 1.7-2.6 Inr/Protime 01/06/2013 Inr 2.24 High 0.87-0.97 Laboratory test finding 08/21/2012 Inr 3.56 High 0.82-1.17 46 Laboratory test finding 05/28/2012 Inr 2.06 High 0.82-1.17 47 Basic Metabolic Panel 05/28/2012 Sodium 138 mmol/L 133-145 Potassium 4.2 mmol/L 3.5-5.0 Chloride 110 mmol/L 101-111 Co2 Carbon Dioxide 26.0 mmol/L 22-32 Anion Gap 2.0 mmol/L 2-11 Glucose 100 mg/dL 70-100 Blood Urea Nitrogen 17 mg/dL 6-24 Creatinine 0.90 mg/dL 0.50-1.40 BUN/Creatinine Ratio 18.9 8-20 Calcium 9.1 mg/dL 8.1-9.9 Egfr Non- 61.2 >60 Egfr 78.7 >60 48 Laboratory test finding 05/28/2012 Magnesium 2.5 mg/dL 1.7-2.6 1 Because ethnic data is not always readily available, this report includes an eGFR for both -Americans and non- Americans. The National Kidney Disease Education Program (NKDEP) does not endorse the use of the MDRD equation for patients that are not between the ages of 18 and 70, are , have extremes of body size, muscle mass, or nutritional status, or are non- or non-. According to the National Kidney Foundation, irrespective of diagnosis, the stage of the disease is based on the level of kidney function: Stage Description GFR(mL/min/1.73 m(2)) 1 Kidney damage with normal or decreased GFR 90 2 Kidney damage with mild decrease in GFR 60-89 3 Moderate decrease in GFR 30-59 4 Severe decrease in GFR 15-29 5 Kidney failure <15 (or dialysis) 2 SEE RESULT BELOW Name: ALESSANDRALENOHUMBERTO : [address]: Vish Clement MD Acct: [id number] Unit: [id number] AGE: 77 Location: ED Re06/15/17 SEX: F Status: REG ER SPEC: [id number] NATE: 06/16/[address] [facility] [address]: Vish Clement MD REQ: [id number] RECD: 06/16/17 STATUS: INDIO TRACY DR: Douglas Damon MD _ SOURCE: URINE SPDESC: ORDERED: Urine Culture Procedure Result Reported Site Urine Culture Final 06/17/17- 0839 ML No growth of clinically significant organisms * ML - MAIN LAB ([facility]) . END OF REPORT * ML=Testing performed at Main Lab DEPARTMENT OF PATHOLOGY, [address] [place] [address] Enrrique Roberts M.D. Director [facility] # [id number] 3 Because ethnic data is not always readily available, this report includes an eGFR for both -Americans and non- Americans. The National Kidney Disease Education Program (NKDEP) does not endorse the use of the MDRD equation for patients that are not between the ages of 18 and 70, are , have extremes of body size, muscle mass, or nutritional status, or are non- or non-. According to the National Kidney Foundation, irrespective of diagnosis, the stage of the disease is based on the level of kidney function: Stage Description GFR(mL/min/1.73 m(2)) 1 Kidney damage with normal or decreased GFR 90 2 Kidney damage with mild decrease in GFR 60-89 3 Moderate decrease in GFR 30-59 4 Severe decrease in GFR 15-29 5 Kidney failure <15 (or dialysis) 4 [facility] Severe Sepsis and Septic Shock Management Bundle Measure requires all lactic acids initially measuring >2.0 mmol/L be repeated. 5 Because ethnic data is not always readily available, this report includes an eGFR for both -Americans and non- Americans. The National Kidney Disease Education Program (NKDEP) does not endorse the use of the MDRD equation for patients that are not between the ages of 18 and 70, are , have extremes of body size, muscle mass, or nutritional status, or are non- or non-. According to the National Kidney Foundation, irrespective of diagnosis, the stage of the disease is based on the level of kidney function: Stage Description GFR(mL/min/1.73 m(2)) 1 Kidney damage with normal or decreased GFR 90 2 Kidney damage with mild decrease in GFR 60-89 3 Moderate decrease in GFR 30-59 4 Severe decrease in GFR 15-29 5 Kidney failure <15 (or dialysis) 6 [facility] Severe Sepsis and Septic Shock Management Bundle Measure requires all lactic acids initially measuring >2.0 mmol/L be repeated. 7 Because ethnic data is not always readily available, this report includes an eGFR for both -Americans and non- Americans. The National Kidney Disease Education Program (NKDEP) does not endorse the use of the MDRD equation for patients that are not between the ages of 18 and 70, are , have extremes of body size, muscle mass, or nutritional status, or are non- or non-. According to the National Kidney Foundation, irrespective of diagnosis, the stage of the disease is based on the level of kidney function: Stage Description GFR(mL/min/1.73 m(2)) 1 Kidney damage with normal or decreased GFR 90 2 Kidney damage with mild decrease in GFR 60-89 3 Moderate decrease in GFR 30-59 4 Severe decrease in GFR 15-29 5 Kidney failure <15 (or dialysis) 8 Desirable <150 Borderline high 150-199 High 200-499 Very High >500 9 Desirable <200 Borderline high 200-239 High >239 10 Low <40 Desirable: 40-60 High: >60 11 Desirable: <100 mg/dL Near Optimal: 100-129 mg/dL Borderline High: 130-159 mg/dL High: 160-189 mg/dL Very High: >189 mg/dL 12 Because ethnic data is not always readily available, this report includes an eGFR for both -Americans and non- Americans. The National Kidney Disease Education Program (NKDEP) does not endorse the use of the MDRD equation for patients that are not between the ages of 18 and 70, are , have extremes of body size, muscle mass, or nutritional status, or are non- or non-. According to the National Kidney Foundation, irrespective of diagnosis, the stage of the disease is based on the level of kidney function: Stage Description GFR(mL/min/1.73 m(2)) 1 Kidney damage with normal or decreased GFR 90 2 Kidney damage with mild decrease in GFR 60-89 3 Moderate decrease in GFR 30-59 4 Severe decrease in GFR 15-29 5 Kidney failure <15 (or dialysis) 13 SEE RESULT BELOW Name: HUMBERTO PHELAN : [address]: Barbi Goff MD Acct: [id number] Unit: [id number] AGE: 76 Location: [place] [address] Re10/24/16 SEX: F Status: ADM IN SPEC: [id number] NATE: 10/24/16-[address]: Venkata Bearden MD REQ: [id number] RECD: 10/24/16752 STATUS: BLAKE TRACY DR: Dagoberto Damon MD _ ORDERED: H PYLORI IMM , LEVEL IV Addendum: An immunohistochemical stain for Helicobacter pylori-like organisms was performed with appropriate controls and is negative. Addendum Signed (signature on file) Enrrique Roberts MD 0955 FINAL DIAGNOSIS Stomach, biopsy: -- Gastric antral-type mucosa with mild chronic inflammation. -- No ulceration, evidence of neoplasia or or active gastritis identified. -- No Helicobacter pylori-like organisms are identified by H E microscopy. Comment: An immunohistochemical stain for Helicobacter pylori-like organisms is pending and will be reported in an addendum. CLINICAL HISTORY No history given POST-OPERATIVE DIAGNOSIS Esophagus - normal; stomach - small prepyloric ulcer, no blood; duodenum - normal. Proton pump inhibitor GROSS DESCRIPTION The specimen is received in formalin labeled, Biopsy Gastric Ulcer, and consists of a 0.2 x 0.1 x 0.1 cm herrera irregular soft tissue fragment, which is submitted entirely in one cassette. Signed (signature on file) Enrrique Roberts MD [id number] END OF REPORT * ML=Testing performed at Main Lab DEPARTMENT OF PATHOLOGY, [address] [place] [address] Enrrique Roberts M.D. Director [facility] # [id number] [facility] Severe Sepsis and Septic Shock Management Bundle Measure requires all lactic acids initially measuring >2.0 mmol/L be repeated. 15 Because ethnic data is not always readily available, this report includes an eGFR for both -Americans and non- Americans. The National Kidney Disease Education Program (NKDEP) does not endorse the use of the MDRD equation for patients that are not between the ages of 18 and 70, are , have extremes of body size, muscle mass, or nutritional status, or are non- or non-. According to the National Kidney Foundation, irrespective of diagnosis, the stage of the disease is based on the level of kidney function: Stage Description GFR(mL/min/1.73 m(2)) 1 Kidney damage with normal or decreased GFR 90 2 Kidney damage with mild decrease in GFR 60-89 3 Moderate decrease in GFR 30-59 4 Severe decrease in GFR 15-29 5 Kidney failure <15 (or dialysis) 16 99th percentile=0.04 ng/mL Troponin results at [facility] and [facility] are not interchangeable. 17 SEE RESULT BELOW Name: HUMBERTO PHELAN : [address]: Singh Arvizu MD Acct: [id number] Unit: [id number] AGE: 76 Location: [place] [address] Re10/24/16 SEX: F Status: ADM IN SPEC: [id number] NATE: 10/23/16-[address] [facility] [address]: Aniceto Espinosa MD REQ: [id number] RECD: 10/23/16 STATUS: INDIO TRACY DR: Douglas Damon MD _ SOURCE: URINE [facility]: ORDERED: Urine Culture Procedure Result Reported Site Urine Culture Final 10/25/16- 08 ML Organism 1 PROTEUS MIRABILIS [place] Count 10-25,000 (Moderate) CFU/ML 1. PROTEUS MIRABILIS M.I.C. RX --------- ------ Ampicillin <=2 S Cefazolin <=4 S Cefepime <=1 S Ceftriaxone <=1 S Ciprofloxacin <=0.25 S Gentamicin <=1 S Levofloxacin <=0.12 S Meropenem <=0.25 S Nitrofurantoin 128 R Tetracycline >=16 R Pipercillin/Tazobactam <=4 S Trimethoprim/Sulfamethoxazole <=20 S Amoxicillin/Clavulanic Acid <=2 S Aztreonam <=1 S Contact the Microbiology Department for any additional antibiotic reporting. * ML - MAIN LAB ([facility]) . END OF REPORT * ML=Testing performed at Main Lab DEPARTMENT OF PATHOLOGY, [address] [place] [address] Enrrique Roberts M.D. Director [facility] # [id number] STANDING ORDER ENTERED 05/25/16 EXPIRES 11/12/16 Q MONTHLY AND PRN 19 Because ethnic data is not always readily available, this report includes an eGFR for both -Americans and non- Americans. The National Kidney Disease Education Program (NKDEP) does not endorse the use of the MDRD equation for patients that are not between the ages of 18 and 70, are , have extremes of body size, muscle mass, or nutritional status, or are non- or non-. According to the National Kidney Foundation, irrespective of diagnosis, the stage of the disease is based on the level of kidney function: Stage Description GFR(mL/min/1.73 m(2)) 1 Kidney damage with normal or decreased GFR 90 2 Kidney damage with mild decrease in GFR 60-89 3 Moderate decrease in GFR 30-59 4 Severe decrease in GFR 15-29 5 Kidney failure <15 (or dialysis) 20 Desirable <150 Borderline high 150-199 High 200-499 Very High >500 21 Desirable <200 Borderline high 200-239 High >239 22 Low <40 Desirable: 40-60 High: >60 23 Desirable: <100 mg/dL Near Optimal: 100-129 mg/dL Borderline High: 130-159 mg/dL High: 160-189 mg/dL Very High: >189 mg/dL 24 ORDERED 06/27/16 EXPIRES 12/25/16 CC: NELSON 25 ORDERED 06/27/16 EXPIRES 12/25/16 CC: NELSON 26 Because ethnic data is not always readily available, this report includes an eGFR for both -Americans and non- Americans. The National Kidney Disease Education Program (NKDEP) does not endorse the use of the MDRD equation for patients that are not between the ages of 18 and 70, are , have extremes of body size, muscle mass, or nutritional status, or are non- or non-. According to the National Kidney Foundation, irrespective of diagnosis, the stage of the disease is based on the level of kidney function: Stage Description GFR(mL/min/1.73 m(2)) 1 Kidney damage with normal or decreased GFR 90 2 Kidney damage with mild decrease in GFR 60-89 3 Moderate decrease in GFR 30-59 4 Severe decrease in GFR 15-29 5 Kidney failure <15 (or dialysis) 27 Because ethnic data is not always readily available, this report includes an eGFR for both -Americans and non- Americans. The National Kidney Disease Education Program (NKDEP) does not endorse the use of the MDRD equation for patients that are not between the ages of 18 and 70, are , have extremes of body size, muscle mass, or nutritional status, or are non- or non-. According to the National Kidney Foundation, irrespective of diagnosis, the stage of the disease is based on the level of kidney function: Stage Description GFR(mL/min/1.73 m(2)) 1 Kidney damage with normal or decreased GFR 90 2 Kidney damage with mild decrease in GFR 60-89 3 Moderate decrease in GFR 30-59 4 Severe decrease in GFR 15-29 5 Kidney failure <15 (or dialysis) 28 STANDING ORDER ENTERED 05/25/16 EXPIRES 11/12/16 Q MONTHLY AND PRN 29 SEE RESULT BELOW Name: HUMBERTO PHELAN : [address]: Joey Bull MD Acct: [id number] Unit: [id number] AGE: 76 Location: [facility] Re05/07/16 SEX: F Status: REG REF SPEC: [id number] NATE: 05/07/[address] [facility] [address]: Joey Bull MD REQ: [id number] RECD: 05/07/16 STATUS: SOUT _ ORDERED: LEVEL I FINAL DIAGNOSIS Pacemaker generator: Foreign body (pacemaker generator) (Gross diagnosis). PRE-OPERATIVE DIAGNOSIS Sick sinus syndrome, E.R.I. GROSS DESCRIPTION The specimen is received fresh with no source identified, and consists of a 4.7 x 4.5 x 0.6 cm silver metallic emergency medical technician basic. The following inscription is identified: [employer] [id number] DDDR SN [id number] [facility]. Per established hospital medical staff protocol, no tissue is submitted. Gross only. Signed (signature on file) Anali Malone MD 1046 END OF REPORT * ML=Testing performed at Main Lab DEPARTMENT OF PATHOLOGY, [address] [place] [address] Enrrique Roberts M.D. Director [facility] # [id number] 30 Because ethnic data is not always readily available, this report includes an eGFR for both -Americans and non- Americans. The National Kidney Disease Education Program (NKDEP) does not endorse the use of the MDRD equation for patients that are not between the ages of 18 and 70, are , have extremes of body size, muscle mass, or nutritional status, or are non- or non-. According to the National Kidney Foundation, irrespective of diagnosis, the stage of the disease is based on the level of kidney function: Stage Description GFR(mL/min/1.73 m(2)) 1 Kidney damage with normal or decreased GFR 90 2 Kidney damage with mild decrease in GFR 60-89 3 Moderate decrease in GFR 30-59 4 Severe decrease in GFR 15-29 5 Kidney failure <15 (or dialysis) 31 Normal Range 180 to 914 Indeterminate Range 145 to 180 Deficient Range <145 32 Because ethnic data is not always readily available, this report includes an eGFR for both -Americans and non- Americans. The National Kidney Disease Education Program (NKDEP) does not endorse the use of the MDRD equation for patients that are not between the ages of 18 and 70, are , have extremes of body size, muscle mass, or nutritional status, or are non- or non-. According to the National Kidney Foundation, irrespective of diagnosis, the stage of the disease is based on the level of kidney function: Stage Description GFR(mL/min/1.73 m(2)) 1 Kidney damage with normal or decreased GFR 90 2 Kidney damage with mild decrease in GFR 60-89 3 Moderate decrease in GFR 30-59 4 Severe decrease in GFR 15-29 5 Kidney failure <15 (or dialysis) 33 Because ethnic data is not always readily available, this report includes an eGFR for both -Americans and non- Americans. The National Kidney Disease Education Program (NKDEP) does not endorse the use of the MDRD equation for patients that are not between the ages of 18 and 70, are , have extremes of body size, muscle mass, or nutritional status, or are non- or non-. According to the National Kidney Foundation, irrespective of diagnosis, the stage of the disease is based on the level of kidney function: Stage Description GFR(mL/min/1.73 m(2)) 1 Kidney damage with normal or decreased GFR 90 2 Kidney damage with mild decrease in GFR 60-89 3 Moderate decrease in GFR 30-59 4 Severe decrease in GFR 15-29 5 Kidney failure <15 (or dialysis) 34 Desirable <150 Borderline high 150-199 High 200-499 Very High >500 35 Desirable <200 Borderline high 200-239 High >239 36 Low <40 Desirable: 40-60 High: >60 37 Desirable <100 Near Optimal 100-129 Borderline high 130-159 High 160-189 Very High >189 38 Normal Range 180 to 914 Indeterminate Range 145 to 180 Deficient Range <145 39 Low risk: <1.00 Average risk: 1.00-3.00 High risk: >3.00 40 Please note the change in the INR reference range effective 13. 41 @Sample frozen by [id number] at 1056 on 07/22/13. 42 Test Performed by: [place] [address] Taffy Candy Maker: Carmine Loomis III, M.D. 43 Please note the change in the INR reference range effective 13. 44 Because ethnic data is not always readily available, this report includes an eGFR for both -Americans and non- Americans. The National Kidney Disease Education Program (NKDEP) does not endorse the use of the MDRD equation for patients that are not between the ages of 18 and 70, are , have extremes of body size, muscle mass, or nutritional status, or are non- or non-. According to the National Kidney Foundation, irrespective of diagnosis, the stage of the disease is based on the level of kidney function: Stage Description GFR(mL/min/1.73 m(2)) 1 Kidney damage with normal or decreased GFR 90 2 Kidney damage with mild decrease in GFR 60-89 3 Moderate decrease in GFR 30-59 4 Severe decrease in GFR 15-29 5 Kidney failure <15 (or dialysis) 45 Because ethnic data is not always readily available, this report includes an eGFR for both -Americans and non- Americans. The National Kidney Disease Education Program (NKDEP) does not endorse the use of the MDRD equation for patients that are not between the ages of 18 and 70, are , have extremes of body size, muscle mass, or nutritional status, or are non- or non-. According to the National Kidney Foundation, irrespective of diagnosis, the stage of the disease is based on the level of kidney function: Stage Description GFR(mL/min/1.73 m(2)) 1 Kidney damage with normal or decreased GFR 90 2 Kidney damage with mild decrease in GFR 60-89 3 Moderate decrease in GFR 30-59 4 Severe decrease in GFR 15-29 5 Kidney failure <15 (or dialysis) 46 The INR(International Normalized Ratio) was adopted by the World Health Organization (WHO) in 1982 as a standardized system of reporting PT (Prothrombin Time). The Centers for Disease Control (CDC) states that reporting of PT results in INR only is the preferred method. Recommended INR for Patients on Oral Anticoagulants Prophylaxis 2.0 - 3.0 Treatment of thrombosis 2.0 - 3.0 Prevention of embolism 2.0 - 3.0 Prevention of embolism from prosthetic heart valves 2.5 - 3.5 47 Recommended INR for Patients on Oral Anticoagulants Prophylaxis 2.0 - 3.0 Treatment of thrombosis 2.0 - 3.0 Prevention of embolism 2.0 - 3.0 Prevention of embolism from prosthetic heart valves 2.5 - 3.5 48 Because ethnic data is not always readily available, this report includes an eGFR for both -Americans and non- Americans. The National Kidney Disease Education Program (NKDEP) does not endorse the use of the MDRD equation for patients that are not between the ages of 18 and 70, are , have extremes of body size, muscle mass, or nutritional status, or are non- or non-. According to the National Kidney Foundation, irrespective of diagnosis, the stage of the disease is based on the level of kidney function: Stage Description GFR(mL/min/1.73 m(2)) 1 Kidney damage with normal or decreased GFR 90 2 Kidney damage with mild decrease in GFR 60-89 3 Moderate decrease in GFR 30-59 4 Severe decrease in GFR 15-29 5 Kidney failure <15 (or dialysis) Procedures Date CPT Code Description Status Comment 07/11/2017 80505 Holter Monitor Review (24 Completed hr)dr review & interp only 07/08/2017 30074 ECG Monitor/Recording Completed W/Visual Superimposition Scanning 06/30/2017 Diabetic Retinal Eye Exam Completed Document: 06/30/17 - Consult Ophthalmology [place] 05/05/2017 04173 EKG Tracing & Completed Interpretation 03/27/2017 90145 EKG, Interpretation Only Completed 03/14/2017 45164 Interrogation Device Eval In Completed Person W/DR Analysis,Single,Dual,Mul 03/12/2017 57743 EEG Recording Awake & Completed Drowsy 03/12/2017 37964 ECHO Transthorasic Realtime Completed 2D W Doppler & Color Flow Hosp 12/02/2016 14390 Pace Maker Eval W/Iterative Completed Adjment Dual Lead 11/20/2016 95204 Inhalation [place] For Acute Completed Airway Obstruction W/Nebulizer/Inhaler 11/06/2016 34692 EKG Tracing & Completed Interpretation 10/28/2016 46004 Treadmill Interp/Report Only Completed 10/28/2016 03290 Stress Test Supervsn W/Out Completed I/R 10/27/2016 22733 EKG, Interpretation Only Completed 10/23/2016 84767 ECHO Transthorasic Realtime Completed 2D W Doppler & Color Flow Hosp 06/04/2016 95560 Pace Maker Eval W/Iterative Completed Adjment Dual Lead 05/07/2016 55007 Removal With Replacement Dual Completed Lead System Pulse Generator 05/01/2016 60451 Interrogation Device Eval In Completed Person W/DR Analysis,Single,Dual,Mul 04/19/2016 60728 Pace Maker Eval W/Iterative Completed Adjment Dual Lead 02/21/2016 93320 EKG Tracing & Completed Interpretation 02/09/2016 30453 Interrogation Device Eval In Completed Person W/DR Analysis,Single,Dual,Mul 11/09/2015 86177 Interrogation Device Eval In Completed Person W/DR Analysis,Single,Dual,Mul 08/16/2015 78857 Pace Maker Eval W/Iterative Completed Adjment Dual Lead 03/14/2015 66646 EKG Tracing & Completed Interpretation 03/08/2015 42689 Interrogation Device Eval In Completed Person W/DR Analysis,Single,Dual,Mul 12/27/2014 58621 Interrogation Device Eval In Completed Person W/DR Analysis,Single,Dual,Mul 08/03/2014 18710 EKG Tracing & Completed Interpretation 06/08/2014 34470 Pace Maker Eval W/Iterative Completed Adjment Dual Lead 11/18/2013 80623 Pace Maker Eval W/Iterative Completed Adjment Dual Lead 09/08/2013 Mammogram Completed 05/25/2013 91252 Cardiac Event Monitor Completed 04/23/2013 71444 EKG Tracing & Completed Interpretation 04/22/2013 52170 Pace Maker Eval W/Iterative Completed Adjment Dual Lead 11/09/2012 25934 Pace Maker Eval W/Iterative Completed Adjment Dual Lead 11/06/2012 46715 Stress Test Completed 11/06/2012 84086 Myocardial Perfusion Imaging Completed Tomographic (Spect) Multiple Studies 08/28/2012 35771 EKG Tracing & Completed Interpretation 08/26/2012 70838 Pace Maker Eval W/Iterative Completed Adjment Dual Lead Encounters Type Date Location Provider CPT E/M Dx Office Visit 07/18/2017 [facility] Douglas Damon, 47635 Z01.818 1:40p Medicine - [place] Mauricio Jaime I10 I48.2 G20 Office Visit 07/15/2017 2:45p [facility] Young Mittal, 93676 I48.2 Christin Jaime, FAC, FASNC H26.9 Z01.810 Office Visit 07/15/2017 3:00p [facility] Azalea Junior, 75999 G20 Services Of Christin Jaime I48.0 I69.354 Office Visit 07/02/2017 11:40a [facility] Douglas Damon 80223 R26.9 - Christine Jaime Office Visit 06/18/2017 11:20a [facility] Douglas Damon 90341 G45.9 - Christine Jaime R42 R29.6 Office Visit 05/21/2017 8:40a [facility] Douglas Damon M.D. 98622 I10 - Christine I63.9 I95.2 Z23 Office Visit 05/05/2017 9:45a [facility] Youngdelphine Mittal, 19136 I48.0 Infantry Unit Leader Harpal.Von, FACC, FASNC Office Visit 04/22/2017 2:00p [facility] Medicine - Douglas Damon, [address] M.D. I10 I63.9 R07.89 R29.6 Office Visit 03/21/2017 4:50p [facility] Shirley Friedman, 30636 I63.9 M.D. I48.91 Office Visit 03/20/2017 4:23p [facility] Barbi Shell, 49473 I63.20 Assoc,pc Hospitalists M.D. I10 G20 I95.1 Office Visit 03/19/2017 4:23p [facility] Barbi Shell, 99010 I63.20 Assoc,pc Hospitalists M.D. I10 G20 I95.1 Office Visit 03/17/2017 4:22p [facility] Barbi Shell, 17567 I63.20 Assoc,pc Hospitalists M.D. I10 G20 I95.1 Office Visit 03/16/2017 3:43p [facility] Barbi Shell, 82965 I63.40 Assoc,pc Hospitalists M.D. I48.0 I95.1 Office Visit 03/15/2017 3:43p [facility] Barbi Shell, 40196 I63.40 Assoc,pc Hospitalists M.D. I48.0 I95.1 Office Visit 03/14/2017 9:06a [facility] Washington Sequeira, 27051 R55 [facility] I63.9 Z95.0 I49.5 Office Visit 03/14/2017 3:42p [facility] Barbi Shell, 80324 I63.40 Assoc,pc Hospitalists M.D. I48.0 I95.1 I47.2 Office Visit 03/13/2017 2:31p [facility] Steve Baker, 64452 I63.40 M.DGrant I10 I48.91 Office Visit 03/13/2017 3:42p [facility] Barbi Shell, 67252 I63.40 Assoc,pc Hospitalists [place] I48.0 I95.0 G20 Office Visit 03/12/2017 3:41p [facility] [place]oc,[place] [address] I63.40 Hospitalists I48.0 G20 I95.1 Office Visit 03/12/2017 2:31p [facility] Steve Baker, 06475 I63.40 M.DGrant I10 I48.91 R55 Office Visit 02/20/2017 11:45a [facility] Azalea Junior, 47261 G20 Services Of Christin Jaime I95.1 Office Visit 02/03/2017 1:00p [facility] [place], 46955 I48.0 Christin Jaime, [facility], [facility] Office Visit 2017 9:20a [facility] Medicine - Douglas Damon, 72414 M51.16 Christine Jaime I48.0 Office Visit 12/25/2016 10:40a [facility] Douglas Damon, 16830 K29.61 Medicine - Christine Jaime M51.16 I48.0 I12.9 N18.9 Office Visit 11/22/2016 10:00a [facility] Douglas Damon M.D. 05012 R05 - [address] Office Visit 11/20/2016 8:20a [facility] Douglas Damon M.D. 46352 R05 - [place] D64.9 I10 Office Visit 11/13/2016 9:20a [facility] Douglas Damon M.D. 76550 I10 - [place] I95.1 I48.0 K25.0 J20.9 Office Visit 11/13/2016 11:15a [facility] Azalea Junior, 82624 I95.1 Services Of Christin Jaime G20 Office Visit 11/06/2016 10:15a [facility] Young Mittal M.D., 25850 I48.0 [facility], [facility] I49.5 Z95.0 I47.2 R94.31 Office Visit 11/01/2016 1:21p [facility] Vannessa De La Paz, 82259 K92.2 Assoc,pc RESEARCH ENVIRONMENTAL ENGINEER Hospitalists R55 D64.9 G20 Office Visit 10/31/2016 1:20p [facility] Vannessa De La Paz, 62497 K92.2 Assoc,pc RESEARCH ENVIRONMENTAL ENGINEER Hospitalists R55 D64.9 G20 Office Visit 10/30/2016 1:19p [facility] Vannessa De La Paz, 54764 K92.2 Assoc,pc RESEARCH ENVIRONMENTAL ENGINEER Hospitalists R55 D64.9 G20 Office Visit 10/30/2016 2:53p [facility] [address] I95.1 G20 Office Visit 10/29/2016 1:19p [facility] [place] [address] K92.2 Hospitalists D64.9 G20 R55 Office Visit 10/29/2016 2:52p [facility] [address] I95.1 G20 Office Visit 10/28/2016 10:07a [facility],elroy Marie, MATTHIEU 92233 K92.2 Hospitalists D64.9 G20 R55 Office Visit 10/27/2016 1:52p [facility] Gustavo Izquierdo M.D. 32607 I47.2 R55 Office Visit 10/27/2016 10:06a [facility],elroy Marie, RESEARCH ENVIRONMENTAL ENGINEER 95980 K92.2 Hospitalists D64.9 G20 R55 Office Visit 10/26/2016 1:53p [facility] Gustavo Izquierdo M.D. 95659 R55 I48.0 I47.2 Office Visit 10/26/2016 10:06a [facility],elroy Marie, [place]IE[place] 75332 K92.2 Hospitalists D64.9 G20 R55 Office Visit 10/25/2016 10:05a [facility],elroy Marie, [place] 50845 K92.2 Hospitalists D64.9 G20 R55 Office Visit 10/24/2016 10:05a [facility],elroy Marie, [place] 27981 K92.2 Hospitalists D64.9 G20 Office Visit 10/23/2016 10:04a [facility],pc Dafne Lord, N.P. 21658 K92.2 Hospitalists D64.9 G20 Office Visit 09/23/2016 3:00p [facility] Medicine - Chase Allen, [place] [address]179 I10 [place] S09.90xA Office Visit 08/22/2016 1:45p [facility] Azalea Junior, 07616 G20 Services Of Infantry Unit Leader M.D. G25.81 G43.009 M25.532 R29.6 Office Visit 08/07/2016 9:40a [facility] Douglas Damon, 75501 M54.5 - Christine Jaime I25.9 Z23 Office Visit 07/24/2016 4:40p [facility] Douglas Damon, 86745 M17.0 - [place] Office Visit 07/17/2016 10:00a [facility] Douglas Damon, 99487 M54.5 - Christine Jaime G20 I48.0 Office Visit 06/21/2016 9:30a [facility] Azalea Junior, 56897 G20 Services Of Infantry Unit Leader M.D. G25.81 M54.5 M79.661 S80.811S Office Visit 05/01/2016 11:00a [facility] Joey Bull, 43656 I49.5 Infantry Unit Leader M.D. Z95.0 Office Visit 04/09/2016 10:15a [facility] Azalea Junior, 55768 G20 Services Of Infantry Unit Leader M.D. G25.81 R40.0 Office Visit 02/21/2016 9:15a [facility] Young Mittal, 73947 I48.0 Infantry Unit Leader Harpal.Deshaun., [facility], [facility] Office Visit 10/19/2015 10:45a [facility] Azalea Junior, 95813 G20 Services Of Infantry Unit Leader M.D. G25.81 Office Visit 06/15/2015 10:15a [facility] Azalea Junior, 57752 G20 Services Of Infantry Unit Leader M.D. G25.81 R42 Office Visit 03/14/2015 1:45p [facility] Dunlap Mittal, 84893 427.31 Infantry Unit Leader M.D., FACC, [facility] Office Visit 02/09/2015 9:45a [facility] Azalea Junior, 95713 332.0 Services Of Infantry Unit Leader M.D. 333.94 783.21 Office Visit 10/13/2014 10:15a [facility] Azalea Junior, 54007 332.0 Services Of Infantry Unit Leader M.D. 333.94 Office Visit 08/03/2014 1:45p [facility] Young Dunlap Mittal, 62006 427.31 M.D., FAC, [facility] Office Visit 06/28/2014 9:45a [facility] Azalea Junior, 59395 332.0 Services Of Infantry Unit Leader M.D. 333.94 Office Visit 08/26/2013 1:15p [facility] Azalea Junior, 27613 332.0 Services Of Infantry Unit Leader M.D. 333.94 729.1 Office Visit 07/12/2013 11:45a [facility] [place] M[place], 96201 785.1 Infantry Unit Leader M.D., FACC, [facility] Office Visit 07/09/2013 9:30a [facility] Azalea Junior, 04223 332.0 Services Of Infantry Unit Leader M.D. Office Visit 04/23/2013 9:45a [facility] [place] Mittal, 49921 427.81 Infantry Unit Leader M.D., FACC, [facility] Office Visit 03/12/2013 11:00a [facility] Azalea Junior, 76923 332.0 Services Of Infantry Unit Leader M.D. Office Visit 12/08/2012 11:30a [facility] Azalea Junior, 65153 332.0 Services Of Infantry Unit Leader M.D. Office Visit 11/16/2012 8:45a [facility] [place] Mittal, 40461 414.9 Infantry Unit Leader M.D., FACC, [facility] Office Visit 10/12/2012 11:15a [facility] [place] Mittal, 92572 427.31 Infantry Unit Leader M.D., FACC, FASND Office Visit 08/28/2012 8:15a [facility] [place] Mittal, 21260 414.9 Infantry Unit Leader M.D., FACC, [facility] 427.31 Office Visit 05/29/2012 3:00p [facility] Azalea Junior, 65605 332.0 Services Of Christin Jaime Office Visit 09/09/2006 3:30p Neurosurgery Services Dao Ceballos, 58440 721.0 Of [facility] [place] 721.3 Plan of Care Future Appointment(s):10/15/2017 10:00 am - Douglas Damon M.D. at [facility]11/13/2017 2:45 pm - Azalea Junior M.D. at [facility]08/27/2017 - Douglas Damon M.D.L98.9 Disorder of the skin and subcutaneous tissue, unspecifiedComments:Make sure to call your observer gravity prospecting.R26.81 Unsteadiness on feetNew Therapy:Physical TherapyFollow up:6 weeks/ If no furter falls will discuss with Dr Vernon regarding restarting coumadin.
[2017-09-07 00:48] LABS: EGFR Non-African American 56.7 (>60)
[2017-09-07 00:50] LABS: ABS Basophils 0.1 10^3/ul (0-0.2); ABS Eosinophils 0.2 10^3/ul (0-0.6); ABS Lymphocytes 1.8 10^3/ul (1.0-4.8); ABS Monocytes 0.9 10^3/ul (0-0.8); ABS Neutrophils 6.2 10^3/ul (1.5-7.7); ABS Nucleated RBC 0 10^3/ul; Eosinophil % 1.9 % (0-6); Hematocrit 34 % (35-47); Lymphocyte % 19.6 % (25-47); Mean Corpuscular HGB Conc 33 g/dl (31-36); Mean Corpuscular Hemoglobin 31 pg (27-31); Mean Corpuscular Volume 94 fL (80-97); Mean Platelet Volume 9 um3 (7.4-10.4); Nucleated Red Blood Cells % 0; Platelet Count 128 10^3/ul (150-450); Red Blood Count 3.57 10^6/ul (4.0-5.4); Red Cell Distribution Width 15 % (10.5-15); White Blood Count 9.1 10^3/ul (3.5-10.8)
[2017-09-07 00:56] LABS: INR 0.98 (0.77-1.02)
[2017-09-07] MEDS ORDERED: Labetalol IV* 5 MG/ML 20 ML VIAL IV PUSH ONE (01:34)
--- NOTE | 2017-09-07 02:41 | ED ---
Marivel Hernandes Rebecca, scribed for eGorgette Ferguson MD on 09/07/17 at 0015 . HPI Chest Pain - HPI Summary HPI Summary: Pt is a 77 y/o F BIBA who presents to ED c/o CP. Sx began today at approximately 2300 and is currently significantly improved. CP located in the midsternum without radiation and is characterized as briefly sharp while en route and heaviness, described as "like an elephant sating on me," at its worst for about 20 minutes. Pain is still present, but much more mildly. Sx aggravated by deep breaths, alleviated by nothing. Additionally c/o bilateral LE weakness, stating "my feet didn't want to move" though she was "able to make my feet work." Denies N/V, diaphoresis and SOB. Pt lives alone. 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 - History of Current Complaint Chief Complaint: EDChestPainROMI Time Seen by Provider: 09/07/17 00:01 Hx Obtained From: Patient Onset/Duration: Started Hours Ago, Still Present Time of Onset: 23:00 Initial Severity: Severe Current Severity: Mild Chest Pain Location: Mid Sternal Chest Pain Radiates: No Character: Heaviness, Sharp/Stabbing - Briefly Aggravating Factor(s): Deep Breaths Alleviating Factor(s): Nothing Associated Signs and Symptoms: Positive: Weakness - Bilateral LE. Negative: Shortness of Breath, Diaphoresis, Nausea, Vomiting - Additional Pertinent History Primary Care Physician: [id number] - Allergy/Home Medications Allergies/Adverse Reactions: Allergies Allergy/AdvReac Type Severity Reaction Status Date / Time Penicillins Allergy Hives Verified 04/17/17 16:50 crystal light Allergy Airway Uncoded 04/17/17 16:50 Obstruction PMH/Surg Hx/FS Hx/Imm Hx Endocrine/Hematology History: Reports: Hx Blood Transfusions - current visit, Hx Anemia - current Denies: Hx Diabetes, Hx Thyroid Disease Cardiovascular History: Reports: Hx Hypertension, Hx Pacemaker/ICD, Hx Syncope Denies: Hx Angina, Hx Coronary Artery Disease, Hx Hypercholesterolemia, Hx Myocardial Infarction, Hx Peripheral Vascular Disease Respiratory History: Denies: Hx Asthma, Hx Chronic Obstructive Pulmonary Disease (COPD), Other Respiratory Problems/Disorders GI History: Reports: Hx Gastroesophageal Reflux Disease - HISTORY OF, Hx Ulcer - OCTOBER 2016 Musculoskeletal History: Reports: Hx Arthritis, Hx Rheumatoid Arthritis, Hx Back Problems Denies: Hx Osteoporosis Sensory History: Reports: Hx Contacts or Glasses Denies: Hx Hearing Aid Opthamlomology History: Reports: Hx Contacts or Glasses Neurological History: Reports: Hx Migraine, Hx Transient Ischemic Attacks (TIA) , Other Neuro Impairments/Disorders - HISTORY OF PARKINSONS Denies: Hx Headaches, Hx Seizures - Cancer History Cancer Type, 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 - Surgical History Surgery Procedure, Year, and Place: skin, hysterectomy- one ovary; appe; pacemaker; heart scraped after infection Hx Anesthesia Reactions: No - Immunization History Date of Tetanus Vaccine: UTD Date of Influenza Vaccine: 2015 Infectious Disease History: No Infectious Disease History: Denies: Hx Clostridium Difficile, Hx Hepatitis, Hx Human Immunodeficiency Virus (HIV), Hx of Known/Suspected MRSA, Hx Shingles, Hx Tuberculosis, Hx Known/ Suspected VRE, Hx Known/Suspected VRSA, History Other Infectious Disease, Traveled Outside the [place] in Last 30 Days - Family History Known Family History: Positive: Cardiac Disease, Hypertension, Other - CA - Social History Alcohol Use: None Hx Substance Use: No Substance Use Type: Reports: None Hx Tobacco Use: No Smoking Status (MU): Never Smoked Tobacco Review of Systems Negative: Skin Diaphoresis Positive: Chest Pain Negative: Shortness Of Breath Negative: Vomiting, Nausea Positive: Weakness - Bilateral LE weakness All Other Systems Reviewed And Are Negative: Yes Physical Exam - Summary Physical Exam Summary: VITAL SIGNS: Reviewed. GENERAL: Patient is a well-developed and nourished female who is lying comfortable in the stretcher. Patient is not in any acute respiratory distress. HEAD AND FACE: No signs of trauma. No ecchymosis, hematomas or skull depressions. No sinus tenderness. EYES: PERRLA, EOMI x 2, No injected conjunctiva, no nystagmus. EARS: Hearing grossly intact. Ear canals and tympanic membranes are within normal limits. MOUTH: Oropharynx within normal limits. NECK: Supple, trachea is midline, no adenopathy, no JVD, no carotid bruit, no c- spine tenderness, neck with full ROM. CHEST: Symmetric, no tenderness at palpation LUNGS: Clear to auscultation bilaterally. No wheezing or crackles. CVS: IRR, S1 and S2 present, no murmurs or gallops appreciated. ABDOMEN: Soft, non-tender. No signs of distention. No rebound no guarding, and no masses palpated. Bowel sounds are normal. EXTREMITIES: FROM in all major joints, no edema, no cyanosis or clubbing. NEURO: Alert and oriented x 3. No acute neurological deficits. Speech is normal and follows commands. SKIN: Dry and warm Triage Information Reviewed: Yes Vital Signs On Initial Exam: Initial Vitals Temp Pulse Resp BP Pulse Ox 98.8 F 69 16 184/133 97 09/06/17 23:48 09/06/17 23:48 09/06/17 23:48 09/06/17 23:48 09/06/17 23:48 Vital Signs Reviewed: Yes - [place] Coma Scale Coma Scale Total: 15 Diagnostics - Vital Signs Vital Signs Temp Pulse Resp BP Pulse Ox 09/07/17 00:01 61 18 179/129 97 09/07/17 00:00 88 18 97 09/06/17 23:50 63 184/133 98 09/06/17 23:48 98.8 F 103 16 184/133 98 - Laboratory Result Diagrams: 09/06/17 23:45 09/06/17 23:45 Lab Statement: Any lab studies that have been ordered have been reviewed, and results considered in the medical decision making process. - Radiology CXR Xray Interpretation: No Acute Changes - No acute process. Radiology Interpretation Completed By: ED Physician - EKG 2353 Cardiac Rate: NL EKG Rhythm: Atrial Fibrillation EKG Interpretation: LAD, flat T waves - unchanged, 83 bpm EKG Comparison: No Significant Change - From EKG on 06/16/2017 Re-Evaluation - Re-Evaluation First Eval Re-Evaluation Time: 01:31 Comment: Pt is doing well and agrees to admission. Chest Pain Course/Dx - Course Assessment/Plan: Pt is a 77 y/o F BIBA who presents to ED c/o midsternal CP without radiation since 2299 and is currently significantly improved. CP was briefly sharp while en route and is now heavy, at its worst for about 20 minutes. Pain is still present, but much more mildly. Sx aggravated by deep breaths. Additionally c/o bilateral LE weakness, stating "my feet didn't want to move" though she was "able to make my feet work." Denies N/V, diaphoresis and SOB. 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 CXR reveals no acute findings. EKG is A Fib with LAD and flat T-waves. Troponin of 0.02. In the ED course, pt received ASA and Labetalol. Discussed care of pt with Dr. Parks who accepts pt for admission. She will be admitted with Dx of CP and HTN. She understands and agrees. Allergies and elevated BP noted. Elevated BP and allergies noted. - Diagnoses Provider Diagnoses: Chest pain, HTN (hypertension) - Provider Notifications Discussed Care Of Patient With: Ty Parks Time Discussed With Above Provider: 01:45 Instructed by Provider To: Other - Accepts pt for admission. Discharge - Discharge Plan Condition: Stable Disposition: ADMITTED TO [facility] Referrals: Douglas Damon MD [Primary Care Provider] - The documentation as recorded by the Marivel lr Rebecca accurately reflects the service I personally performed and the decisions made by me, Georgette Ferguson MD.
[2017-09-07] MEDS ORDERED: Ondansetron INJ* 2 MG/ML VIAL IV PRN (03:35)
[2017-09-07] MEDS ORDERED: CMCS: Melatonin (NF) 3 MG TAB PO PRN (03:35)
[2017-09-07] MEDS ORDERED: HYDROcodone/ACETAMIN 5-325 MG* 1 TAB PO PRN (03:36)
[2017-09-07] MEDS: Sucralfate TAB* 1 GM PO SCH ×4 (05:16→21:11)
[2017-09-07 05:27] LABS: ABS Basophils 0.1 10^3/ul (0-0.2); ABS Eosinophils 0.1 10^3/ul (0-0.6); ABS Lymphocytes 1.6 10^3/ul (1.0-4.8); ABS Monocytes 0.7 10^3/ul (0-0.8); ABS Neutrophils 7.5 10^3/ul (1.5-7.7); ABS Nucleated RBC 0 10^3/ul; Hematocrit 35 % (35-47); Hemoglobin 11.5 g/dl (12.0-16.0); Lymphocyte % 16.1 % (25-47); Mean Corpuscular HGB Conc 33 g/dl (31-36); Mean Corpuscular Hemoglobin 31 pg (27-31); Mean Corpuscular Volume 94 fL (80-97); Mean Platelet Volume 9 um3 (7.4-10.4); Nucleated Red Blood Cells % 0.1; Platelet Count 129 10^3/ul (150-450); Red Blood Count 3.73 10^6/ul (4.0-5.4); Red Cell Distribution Width 16 % (10.5-15)
[2017-09-07 05:43] LABS: INR 0.98 (0.77-1.02)
[2017-09-07 05:48] LABS: EGFR Non-African American 67.2 (>60)
[2017-09-07] MEDS: Acetaminophen TAB* 325 MG PO PRN ×3 (05:51→22:30)
[2017-09-07] MEDS ORDERED: Omeprazole CAP* 20 MG PO SCH (06:00)
--- NOTE | 2017-09-07 06:23 | HP ---
H&P (Free Text) History and Physical: PCP: Yomi Damon MD Date/Time: 09/07/2017 0330 CC: chest pain HPI: Mrs Phelan is a 68YO female poor historian HX CVA, HTN, AFIB, Parkinsonism who awoke to go to the restroom ~2300 and found B legs "not listening" which resolved quickly and she walked to the bathroom. Once there she developed severe chest pressure w/o SOB, nausea, sweating, light-headedness, or palpitations. The pressure was worse with inspiration, but she is unaware of any alleviating factors. She thinks the pain lasted 10 to 20 minutes. She called EMS for transport. PMedHx CVA w/ residual L-sided weakness AFIB not on anticoagulation 2nd GI bleed Parkinsonism HTN orthostatic hypotension gastric ulcer w/ GI bleed Ambulatory Orders Nursing to reconcile. Sucralfate TAB* [Carafate*] 1 gm PO 0600,1100,1600,2099 #120 tab 11/01/16 Amlodipine Besylate [Norvasc 2.5 mg tab] 2.5 mg PO DAILY 03/12/17 Carbidopa/Levodop 25/100 MG(*) [Sinemet 25/100 TAB(*)] 2 tab PO 1200 03/12/17 Carbidopa/Levodop 25/100 MG(*) [Sinemet 25/100 TAB(*)] 2 tab PO 2100 03/12/17 Carbidopa/Levodop 25/100 MG(*) [Sinemet 25/100 TAB(*)] 2 tab PO 2200 03/12/17 Carbidopa/Levodop 25/100 MG(*) [Sinemet 25/100 TAB(*)] 2.5 tab PO 1600 03/12/17 Atorvastatin* [Lipitor 40 MG*] 40 mg PO 1700 #30 tab 04/07/17 Fludrocortisone Acetate TAB* [Florinef TAB*] 0.1 mg PO DAILY #30 tab 04/07/17 HYDROcodone/ACETAMIN 5-325 MG* [[place] 5-325 TAB*] 1 tab PO Q4H PRN #50 tab MDD 2 04/07/17 Metoprolol Tartrate TAB* [Lopressor TAB*] 50 mg PO BID #60 tab 04/07/17 Omeprazole CAP* [Prilosec CAP* 20 MG] 20 mg PO 0700,1600 #60 cap 04/07/17 Carbidopa/Levodop 25/100 MG(*) [Sinemet 25/100 TAB(*)] 2 tab PO 0800 06/16/17 Allergies Penicillins Allergy (Verified 04/17/17 16:50) Hives crystal light Allergy (Uncoded 04/17/17 16:50) Airway Obstruction PSurgHx pacer placement appendectomy hysterectomy SocHx: no tobacco, alcohol, or recreational drugs; lives alone; full code status FamHx: positive for CHF, HTN, lung CA ROS: as above, otherwise reviewed and all were negative vitals: Vital Signs Temp 36.8 C 09/07/17 04:40 Pulse 118 09/07/17 04:40 Resp 20 09/07/17 04:40 BP 177/119 09/07/17 04:40 Pulse Ox 97 09/07/17 04:40 Intake & Output 09/06/17 09/06/17 09/07/17 11:59 23:59 11:59 Weight 55.792 kg 53.887 kg Constitutional: NAD, normally developed, well-nourished elderly white female HEENM: atraumatic; sclera/conjunctiva: anicteric/clear; hearing: clinically intact; oropharynx: clear, mucosa moist Neck: soft tissue: non-tender; thyroid: normal Pulmonary: clear to auscultation bilaterally, good aeration, no accessory muscle use CV: RR/RR, normal S1S2, no carotid bruit, no jugular venous distention, 2+ B DP/ PT, no edema Abdominal: soft, non-distended, non-tender, no rebound/guarding/rigidity, normoactive bowel sounds, no hepatosplenomegaly or masses, no costovertebral angle tenderness Musculoskeletal: general: grossly intact, able to elevate each leg to ~30 degrees and hold for 5 seconds Integumental: normal appearance and texture of exposed skin Psychiatric orientation: AA&O to PPS affect: calm mood: cooperative eye contact: fair to good content: reliable, but disjointed responses: timely insight: fair Testing: Lab Results 09/06/17 09/06/17 09/06/17 Range/Units 23:45 23:45 23:45 WBC 9.1 (3.5-10.8) 10^3/ul RBC 3.57 L (4.0-5.4) 10^6/ul Hgb 11.0 L (12.0-16.0) g/dl Hct 34 L (35-47) % MCV 94 (80-97) fL MCH 31 (27-31) pg MCHC 33 (31-36) g/dl RDW 15 (10.5-15) % Plt Count 128 L (150-450) 10^3/ul MPV 9 (7.4-10.4) um3 Neut % (Auto) 68.3 (38-83) % Lymph % (Auto) 19.6 L (25-47) % [place] % (Auto) 9.6 H (1-9) % Eos % (Auto) 1.9 (0-6) % Baso % (Auto) 0.6 (0-2) % Absolute Neuts (auto) 6.2 (1.5-7.7) 10^3/ul Absolute Lymphs (auto) 1.8 (1.0-4.8) 10^3/ul Absolute Monos (auto) 0.9 H (0-0.8) 10^3/ul Absolute Eos (auto) 0.2 (0-0.6) 10^3/ul Absolute Basos (auto) 0.1 (0-0.2) 10^3/ul Absolute Nucleated RBC 0 10^3/ul Nucleated RBC % 0 INR (Anticoag Therapy) 0.98 (0.77-1.02) APTT 29.7 (26.0-36.3) seconds Sodium (133-145) mmol/L Potassium (3.5-5.0) mmol/L Chloride (101-111) mmol/L Carbon Dioxide (22-32) mmol/L Anion Gap (2-11) mmol/L BUN (6-24) mg/dL Creatinine (0.51-0.95) mg/dL Est GFR ( Amer) (>60) Est GFR (Non-Af Amer) (>60) BUN/Creatinine Ratio (8-20) Glucose (70-100) mg/dL Lactic Acid (0.5-2.0) mmol/L Calcium (8.6-10.3) mg/dL Magnesium (1.9-2.7) mg/dL Total Bilirubin (0.2-1.0) mg/dL AST (13-39) U/L ALT (7-52) U/L Alkaline Phosphatase (34-104) U/L Troponin I (<0.04) ng/mL B-Natriuretic Peptide 512 H ( - 100) pg/mL Total Protein (6.4-8.9) g/dL Albumin (3.2-5.2) g/dL Globulin (2-4) g/dL Albumin/Globulin Ratio (1-3) 09/06/17 09/06/17 09/07/17 Range/Units 23:45 23:45 05:18 WBC (3.5-10.8) 10^3/ul RBC (4.0-5.4) 10^6/ul Hgb (12.0-16.0) g/dl Hct (35-47) % MCV (80-97) fL MCH (27-31) pg MCHC (31-36) g/dl RDW (10.5-15) % Plt Count (150-450) 10^3/ul MPV (7.4-10.4) um3 Neut % (Auto) (38-83) % Lymph % (Auto) (25-47) % [place] % (Auto) (1-9) % Eos % (Auto) (0-6) % Baso % (Auto) (0-2) % Absolute Neuts (auto) (1.5-7.7) 10^3/ul Absolute Lymphs (auto) (1.0-4.8) 10^3/ul Absolute Monos (auto) (0-0.8) 10^3/ul Absolute Eos (auto) (0-0.6) 10^3/ul Absolute Basos (auto) (0-0.2) 10^3/ul Absolute Nucleated RBC 10^3/ul Nucleated RBC % INR (Anticoag Therapy) 0.98 (0.77-1.02) APTT 28.4 (26.0-36.3) seconds Sodium 139 (133-145) mmol/L Potassium 3.9 (3.5-5.0) mmol/L Chloride 102 (101-111) mmol/L Carbon Dioxide 30 (22-32) mmol/L Anion Gap 7 (2-11) mmol/L BUN 25 H (6-24) mg/dL Creatinine 0.95 (0.51-0.95) mg/dL Est GFR ( Amer) 73.0 (>60) Est GFR (Non-Af Amer) 56.7 (>60) BUN/Creatinine Ratio 26.3 H (8-20) Glucose 102 H (70-100) mg/dL Lactic Acid 0.8 (0.5-2.0) mmol/L Calcium 9.8 (8.6-10.3) mg/dL Magnesium 2.0 (1.9-2.7) mg/dL Total Bilirubin 1.20 H (0.2-1.0) mg/dL AST 33 (13-39) U/L ALT 11 (7-52) U/L Alkaline Phosphatase 293 H (34-104) U/L Troponin I 0.02 (<0.04) ng/mL B-Natriuretic Peptide ( - 100) pg/mL Total Protein 7.1 (6.4-8.9) g/dL Albumin 4.1 (3.2-5.2) g/dL Globulin 3.0 (2-4) g/dL Albumin/Globulin Ratio 1.4 (1-3) 09/07/17 09/07/17 09/07/17 Range/Units 05:18 05:18 05:18 WBC 10.0 (3.5-10.8) 10^3/ul RBC 3.73 L (4.0-5.4) 10^6/ul Hgb 11.5 L (12.0-16.0) g/dl Hct 35 (35-47) % MCV 94 (80-97) fL MCH 31 (27-31) pg MCHC 33 (31-36) g/dl RDW 16 H (10.5-15) % Plt Count 129 L (150-450) 10^3/ul MPV 9 (7.4-10.4) um3 Neut % (Auto) 74.8 (38-83) % Lymph % (Auto) 16.1 L (25-47) % [place] % (Auto) 6.8 (1-9) % Eos % (Auto) 1.0 (0-6) % Baso % (Auto) 1.3 (0-2) % Absolute Neuts (auto) 7.5 (1.5-7.7) 10^3/ul Absolute Lymphs (auto) 1.6 (1.0-4.8) 10^3/ul Absolute Monos (auto) 0.7 (0-0.8) 10^3/ul Absolute Eos (auto) 0.1 (0-0.6) 10^3/ul Absolute Basos (auto) 0.1 (0-0.2) 10^3/ul Absolute Nucleated RBC 0 10^3/ul Nucleated RBC % 0.1 INR (Anticoag Therapy) (0.77-1.02) APTT (26.0-36.3) seconds Sodium (133-145) mmol/L Potassium (3.5-5.0) mmol/L Chloride (101-111) mmol/L Carbon Dioxide (22-32) mmol/L Anion Gap (2-11) mmol/L BUN 20 (6-24) mg/dL Creatinine 0.82 (0.51-0.95) mg/dL Est GFR ( Amer) 86.5 (>60) Est GFR (Non-Af Amer) 67.2 (>60) BUN/Creatinine Ratio (8-20) Glucose (70-100) mg/dL Lactic Acid (0.5-2.0) mmol/L Calcium (8.6-10.3) mg/dL Magnesium (1.9-2.7) mg/dL Total Bilirubin (0.2-1.0) mg/dL AST (13-39) U/L ALT (7-52) U/L Alkaline Phosphatase (34-104) U/L Troponin I 0.01 (<0.04) ng/mL B-Natriuretic Peptide ( - 100) pg/mL Total Protein (6.4-8.9) g/dL Albumin (3.2-5.2) g/dL Globulin (2-4) g/dL Albumin/Globulin Ratio (1-3) ECG, personally reviewed: AFIB rate 83, inverted T in V5, flat T in V6 CXR, personally reviewed: R pacer, no acute process Impression: 77F HX CVA, HTN presents with chest pain for r/o ACS & brief episode of BLE weakness DIAGNOSIS & PLAN Primary chest pain r/o ACS : telemetry : aspirin : trend troponin : supplemental oxygen : supportive care Secondary CVA w/ residual L-sided weakness : continue aspirin AFIB : review meds once reconciled Parkinsonism : review meds once reconciled HTN : review meds once reconciled HX gastric ulcer w/ GI bleeding : omeprazole Admission Rational: observation for r/o ACS DVTp: heparin SQ Code Status: full HCP: Celena henry
[2017-09-07] MEDS: Omeprazole CAP* 20 MG PO SCH ×2 (06:24→16:31)
--- NOTE | 2017-09-07 08:13 | RAD ---
HISTORY: Chest pain COMPARISONS: May 12, 2017 VIEWS: 1: frontal portable view of the chest at 12:33 AM FINDINGS: LINES AND TUBES: A right-sided pacemaker is noted. CARDIOMEDIASTINAL SILHOUETTE: The cardiomediastinal silhouette is normal for portable technique. PLEURA: The costophrenic angles are sharp. No pleural abnormalities are noted. LUNG PARENCHYMA: The lungs are clear. ABDOMEN: The upper abdomen is clear. There is no subphrenic gas. BONES AND SOFT TISSUES: No bone or soft tissue abnormalities are noted. IMPRESSION: NO ACTIVE CARDIOPULMONARY DISEASE.
[2017-09-07] MEDS: Docusate CAP* 100 MG PO SCH ×2 (08:44→21:11)
[2017-09-07] MEDS: Fludrocortisone Acetate TAB* 0.1 MG PO SCH (08:46)
[2017-09-07] MEDS: amLODIPine TAB* 5 MG PO SCH (08:46)
[2017-09-07] MEDS: Carbidopa/Levodop 25/100 MG TAB(*) PO SCH ×2 (08:46→11:55)
[2017-09-07] MEDS: Metoprolol Tartrate TAB* 50 mg PO SCH ×2 (08:46→21:12)
--- NOTE | 2017-09-07 10:36 | PN ---
Subjective Date of Service: 09/07/17 Interval History: Patient seen and examined at bedside. Denies fever, chills, shortness of breath , N/V/D. Pt continues to state that she has to "tell her legs to move" and have sternal chest discomfort, she describes as a burning sensation and ache. Pt reports that she shoveled off her porch and has been stressed about doing her will. Tele: Afib, rate 70-100's. Family History: Unchanged from Admission Social History: Unchanged from Admission Past Medical History: Unchanged from Admission Objective Active Medications: Acetaminophen (Tylenol Tab*) 650 mg PO Q6H PRN Reason: FEVER/PAIN Hydrocodone Bitart/Acetaminophen ([place] 5-325 Tab*) 1 tab PO Q4H PRN Reason: PAIN - MODERATE TO SEVERE Amlodipine Besylate (Norvasc Tab*) 2.5 mg PO DAILY EDY Carbidopa/Levodopa (Sinemet 25/100 Tab(*)) 2 tab PO 0800 EDY Carbidopa/Levodopa (Sinemet 25/100 Tab(*)) 2 tab PO 2100 EDY Carbidopa/Levodopa (Sinemet 25/100 Tab(*)) 1.5 tab PO 1200 EDY Carbidopa/Levodopa (Sinemet 25/100 Tab(*)) 1 tab PO 1600 EDY Docusate Sodium (Colace Cap*) 200 mg PO BID EDY Fludrocortisone Acetate (Florinef Tab*) 0.1 mg PO DAILY EDY Heparin Sodium (Porcine) (Heparin Vial(*)) 5,000 units SUBCUT Q8HR EDY Melatonin (Melatonin (Nf)) 3 mg PO BEDTIME PRN; Protocol Reason: Sleep Metoprolol Tartrate (Lopressor Tab*) 50 mg PO BID EDY Omeprazole (Prilosec Cap*) 20 mg PO 0700,1600 EDY Ondansetron HCl (Zofran Inj*) 4 mg IV Q6H PRN Reason: NAUSEA Sucralfate (Carafate*) 1 gm PO 0600,1100,1600,2100 [facility] Vital Signs - 8 hr 09/07/17 09/07/17 09/07/17 03:54 04:06 04:40 Temperature 97.6 F 98.2 F Pulse Rate 107 118 Respiratory 16 20 20 Rate Blood Pressure 160/115 177/119 (mmHg) O2 Sat by Pulse 95 97 Oximetry 09/07/17 09/07/17 07:53 08:00 Temperature 98.3 F Pulse Rate 99 Respiratory 20 Rate Blood Pressure 148/83 (mmHg) O2 Sat by Pulse 98 97 Oximetry Oxygen Devices in Use Now: None Appearance: NAD, laying in bed Ears/Nose/Mouth/Throat: Mucous Membranes Moist Respiratory: Symmetrical Chest Expansion and Respiratory Effort, Clear to Auscultation Cardiovascular: NL Sounds; No Murmurs; No JVD, RRR, - - Chest pain reproducible with palpation Abdominal: NL Sounds; No Tenderness; No Distention Extremities: No Edema Skin: No Rash or Ulcers Neurological: Alert and Oriented x 3, NL Muscle Strength and Tone Lines/Tubes/Other Access: Clean, Dry and Intact Peripheral IV - site benign Nutrition: Taking PO's Result Diagrams: 09/07/17 05:18 09/07/17 05:18 Assess/Plan/Problems-Billing Assessment: Ms. Phelan is a 77 yo female with PMH significant for CVA with residual left sided weakness, Afib, Parkinsonism, HTN, orthostatic hypotension, and gastric ulcer who presented to the emergency room with complaints of bilateral LE weakness and chest pain. - Patient Problems (1) Chest pain Code(s): R07.9 - CHEST PAIN, UNSPECIFIED SNOMED Code(s): 19741370 Comment: - Troponin 0.02, 0.01, 0.01 - Continues to have chest discomfort at rest, reproducible with palpation - Will get a nuclear stress test in the AM - Suspect this is muscular (2) History of CVA (cerebrovascular accident) Code(s): Z86.73 - PRSNL HX OF TIA (TIA), AND CEREB INFRC W/O RESID DEFICITS SNOMED Code(s): 137768443 Comment: - With residual left sided weakness - Continue ASA (3) A-fib Code(s): I48.91 - UNSPECIFIED ATRIAL FIBRILLATION SNOMED Code(s): 80042789 Comment: - Rate controlled - Continue lopressor (4) Diastolic heart failure Code(s): I50.30 - UNSPECIFIED DIASTOLIC (CONGESTIVE) HEART FAILURE SNOMED Code (s): 813550411 Comment: - Stable - Echo 02/2017, EF 50-55% - Continue amlodipine, daily weights and strict I+O's (5) Dyslipidemia Code(s): E78.5 - HYPERLIPIDEMIA, UNSPECIFIED SNOMED Code(s): 133755274 Comment: - Continue lipitor (6) Hypertension Code(s): I10 - ESSENTIAL (PRIMARY) HYPERTENSION SNOMED Code(s): 80920443 Comment: - Mild hypertensive, will allow HTN in setting of a Pt with h/o orthostatic hypotension and syncope - Continue metoprolol and amlodipine (7) Parkinsons Code(s): G20 - PARKINSON'S DISEASE SNOMED Code(s): 04048266 Comment: - Continue Sinemet (8) Orthostatic hypotension Code(s): I95.1 - ORTHOSTATIC HYPOTENSION SNOMED Code(s): 80289156 Comment: - Continue fludrocortisone (9) Gastric ulcer Code(s): K25.9 - GASTRIC ULCER, UNSP ACUTE OR CHRONIC, W/O HEMOR OR PERF SNOMED Code(s): 600970023 Comment: - History - Continue omeprazole (10) DVT prophylaxis Code(s): MDV3047 - SNOMED Code(s): 109223872 Comment: - SQ heparin (11) Full code status Code(s): Z78.9 - OTHER SPECIFIED HEALTH STATUS SNOMED Code(s): 995260856 Status and Disposition: OBV. Discharge to home when medically stable, likely in the AM.
[2017-09-07] MEDS ORDERED: Carbidopa/Levodop 25/100 MG TAB(*) PO SCH ×5 (12:00→22:00)
[2017-09-08] MEDS: Sucralfate TAB* 1 GM PO SCH ×2 (05:20→13:13)
[2017-09-08] MEDS: Omeprazole CAP* 20 MG PO SCH (05:21)
[2017-09-08] MEDS: Heparin VIAL(*) 5000 UNITS/ML VIAL (FIVE THOUSAND) SUBCUT SCH ×2 (05:21→14:37)
[2017-09-08] MEDS: Metoprolol Tartrate TAB* 50 mg PO SCH (07:39)
[2017-09-08] MEDS: amLODIPine TAB* 5 MG PO SCH (07:40)
[2017-09-08] MEDS: Carbidopa/Levodop 25/100 MG TAB(*) PO SCH ×2 (07:40→13:12)
[2017-09-08] MEDS: Fludrocortisone Acetate TAB* 0.1 MG PO SCH (07:40)
[2017-09-08] MEDS: Docusate CAP* 100 MG PO SCH (07:40)
[2017-09-08] MEDS ORDERED: Regadenoson* 0.4 MG/5 ML SYRINGE ONE (09:38)
[2017-09-08] MEDS ORDERED: Aminophylline IV* 25 MG/ML 10 ML VIAL ONE (09:39)
--- NOTE | 2017-09-08 11:35 | RAD ---
HISTORY: Chest pain, shortness of breath, hypertension COMPARISONS: November 14, 2016 TECHNIQUE: A 1 day stress/rest myocardial perfusion study was performed, with pharmacologic stress. The stress portion was monitored by Dr. Uriarte. Gated SPECT imaging was performed, without CT-based attenuation correction secondary to patient physical limitation DOSE: Stress: Technetium 99m tetrofosmin, 25.4 millicuries, injected at 10:09 AM on September 08, 2017 Rest: Technetium 99m tetrofosmin, 1023 millicuries, injected at 6:30 AM on September 08, 2017 Pharmacologic agent: Lexiscan FINDINGS: CARDIAC MONITORING: Resting EKG abnormalities EF: 62% TID: 0.98 MOTION: Normal motion, with normal wall thickening. PERFUSION: There is a small reversible defect of the distal lateral wall. OTHER: None IMPRESSION: SMALL REVERSIBLE DEFECT OF THE DISTAL LATERAL WALL SUGGESTIVE OF ISCHEMIA. ASSESSMENT: LOW RISK. Based on imaging criteria from ACC/AHA 2002. Guideline Update for the Management of Patient's with Chronic Stable Angina, table 23. Noninvasive Risk Stratification. CPT II Codes: 3570F
[2017-09-08 13:14] VITALS: BP 151/88
--- NOTE | 2017-09-08 14:05 | PN ---
Subjective Date of Service: 09/08/17 Interval History: Patient seen and examined at bedside. Denies fever, chills, shortness of breath , N/V/D. Pt states that she continues to have sternal chest discomfort that is worse with palpation. Tele: Afib, rate 80-100's. Family History: Unchanged from Admission Social History: Unchanged from Admission Past Medical History: Unchanged from Admission Objective Active Medications: Acetaminophen (Tylenol Tab*) 650 mg PO Q6H PRN Reason: FEVER/PAIN Hydrocodone Bitart/Acetaminophen ([place] 5-325 Tab*) 1 tab PO Q4H PRN Reason: PAIN - MODERATE TO SEVERE Amlodipine Besylate (Norvasc Tab*) 2.5 mg PO DAILY EDY Carbidopa/Levodopa (Sinemet 25/100 Tab(*)) 2 tab PO 0800 EDY Carbidopa/Levodopa (Sinemet 25/100 Tab(*)) 2 tab PO 2100 EDY Carbidopa/Levodopa (Sinemet 25/100 Tab(*)) 1.5 tab PO 1200 EDY Carbidopa/Levodopa (Sinemet 25/100 Tab(*)) 1 tab PO 1600 EDY Docusate Sodium (Colace Cap*) 200 mg PO BID EDY Fludrocortisone Acetate (Florinef Tab*) 0.1 mg PO DAILY EDY Heparin Sodium (Porcine) (Heparin Vial(*)) 5,000 units SUBCUT Q8HR EDY Melatonin (Melatonin (Nf)) 3 mg PO BEDTIME PRN; Protocol Reason: Sleep Metoprolol Tartrate (Lopressor Tab*) 50 mg PO BID EDY Omeprazole (Prilosec Cap*) 20 mg PO 0700,1600 EDY Ondansetron HCl (Zofran Inj*) 4 mg IV Q6H PRN Reason: NAUSEA Sucralfate (Carafate*) 1 gm PO 0600,1100,1600,2100 [facility] Vital Signs - 8 hr 09/08/17 09/08/17 09/08/17 07:18 08:00 11:53 Temperature 98.4 F 97.9 F Pulse Rate 105 136 Respiratory 16 16 16 Rate Blood Pressure 186/112 151/88 (mmHg) O2 Sat by Pulse 98 97 Oximetry Oxygen Devices in Use Now: None Appearance: NAD, sitting up on the side of the bed Ears/Nose/Mouth/Throat: Mucous Membranes Moist Respiratory: Symmetrical Chest Expansion and Respiratory Effort, Clear to Auscultation Cardiovascular: NL Sounds; No Murmurs; No JVD, RRR Abdominal: NL Sounds; No Tenderness; No Distention Extremities: No Edema Skin: No Rash or Ulcers Neurological: Alert and Oriented x 3, NL Muscle Strength and Tone Lines/Tubes/Other Access: Clean, Dry and Intact Peripheral IV - site benign Nutrition: Taking PO's Result Diagrams: 09/07/17 05:18 09/07/17 05:18 Assess/Plan/Problems-Billing Assessment: Ms. Phelan is a 77 yo female with PMH significant for CVA with residual left sided weakness, Afib, Parkinsonism, HTN, orthostatic hypotension, and gastric ulcer who presented to the emergency room with complaints of bilateral LE weakness and chest pain. - Patient Problems (1) Chest pain Code(s): R07.9 - CHEST PAIN, UNSPECIFIED SNOMED Code(s): 35753170 Comment: - Troponin 0.02, 0.01, 0.01 - Continues to have chest discomfort at rest, reproducible with palpation - Low risk Nuclear stress test with small reversible area of ischemia - Suspect this is muscular - Follow-up with cardiology outpatient (2) History of CVA (cerebrovascular accident) Code(s): Z86.73 - PRSNL HX OF TIA (TIA), AND CEREB INFRC W/O RESID DEFICITS SNOMED Code(s): 069096506 Comment: - With residual left sided weakness - Continue ASA (3) A-fib Code(s): I48.91 - UNSPECIFIED ATRIAL FIBRILLATION SNOMED Code(s): 49037552 Comment: - Rate controlled - Continue lopressor (4) Diastolic heart failure Code(s): I50.30 - UNSPECIFIED DIASTOLIC (CONGESTIVE) HEART FAILURE SNOMED Code (s): 020891923 Comment: - Stable - Echo 02/2017, EF 50-55% - Continue amlodipine, daily weights and strict I+O's (5) Dyslipidemia Code(s): E78.5 - HYPERLIPIDEMIA, UNSPECIFIED SNOMED Code(s): 593648040 Comment: - Continue lipitor (6) Hypertension Code(s): I10 - ESSENTIAL (PRIMARY) HYPERTENSION SNOMED Code(s): 37751965 Comment: - Mild hypertensive, will allow HTN in setting of a Pt with h/o orthostatic hypotension and syncope - Continue metoprolol and amlodipine (7) Parkinsons Code(s): G20 - PARKINSON'S DISEASE SNOMED Code(s): 15086497 Comment: - Continue Sinemet (8) Orthostatic hypotension Code(s): I95.1 - ORTHOSTATIC HYPOTENSION SNOMED Code(s): 99974139 Comment: - Continue fludrocortisone (9) Gastric ulcer Code(s): K25.9 - GASTRIC ULCER, UNSP ACUTE OR CHRONIC, W/O HEMOR OR PERF SNOMED Code(s): 848287920 Comment: - History - Continue omeprazole (10) DVT prophylaxis Code(s): [id number] - SNOMED Code(s): 402244593 Comment: - SQ heparin (11) Full code status Code(s): Z78.9 - OTHER SPECIFIED HEALTH STATUS SNOMED Code(s): 272863563 Status and Disposition: OBV. Stable for discharge to home today.
--- NOTE | 2017-09-09 23:12 | DS ---
CC: Dr. Douglas Damon; Young Mittal MD DISCHARGE SUMMARY: DATE OF ADMISSION: 09/07/17 DATE OF DISCHARGE: 09/08/17 ATTENDING PHYSICIAN: Vanna Osorio DO (dictated by Andrea Bonilla NP) PRIMARY CARE PROVIDER: Dr. Douglas Damon. HOUSEKEEPER HOME: Young Mittal MD PRIMARY DIAGNOSES: 1. Chest pain, suspect secondary to muscular pain. 2. Abnormal nuclear stress test. SECONDARY DIAGNOSES: 1. History of cerebrovascular accident with residual left-sided weakness. 2. Atrial fibrillation, not on anticoagulation, secondary to history of GI bleed approximately 6 mon ths ago. 3. Parkinsonism. 4. Hypertension. 5. Orthostatic hypotension. 6. History of gastric ulcer with history of GI bleed. STUDIES WHILE IN THE HOSPITAL: 1. Chest x-ray on 09/07/17. Radiologist's impression: No active cardiopulmonary disease. 2. Chemical nuclear cardiac stress test on 09/08/17. Radiologist's impression: Small reversible def ect of the distal lateral wall suggestive of ischemia. Assessment, low risk. Spa Experience Coordinator observatio n: T-ST wave change, occasional couplet, PVC, hypertension. Spa Experience Coordinator conclusion: Nondiagnostic Lexiscan study by EKG due to resting EKG abnormalities. Nuclear portion to be reported separately b y Radiology. DISCHARGE MEDICATIONS: New home medication: Acetaminophen 650 mg oral every 6 hours as needed for f ever or pain. Continue home medications: 1. Carafate 1 g oral daily at 6 a.m., 11 a.m., 4 p.m., and 9 p.m. 2. Amlodipine 2.5 mg oral daily. 3. Sinemet 25/100, 1 tablet oral daily at 4 p.m. 4. Sinemet 25/100, 2 tablets oral daily at 9 p.m. 5. Sinemet 25/100, 1.5 tablets oral at noon daily. 6. Atorvastatin 40 mg oral daily. 7. Florinef 0.1 mg oral daily. 8. [place] 5/325, 1 tablet oral every 4 hours as needed for moderate to severe pain. 9. Lopressor 50 mg oral twice daily. 10. Omeprazole 20 mg oral twice daily. 11. Sinemet 25/100, 2 tablets oral daily at 8 a.m. HISTORY OF PRESENT ILLNESS/HOSPITAL COURSE: Ms. Phelan is a 77-year-old female with past medical histo ry significant for cerebrovascular accident, hypertension, GI bleed, Parkinson's, and GI bleed who aw syed at approximately 11 p.m. on 09/06/17 and found that both of her legs were "not listening" which r esolved quickly and she was able to walk to the bathroom. Once in the bathroom, she developed severe chest pressure with shortness of breath, nausea, sweating, lightheadedness, and palpitations. She f elt the pain was worse with inspiration and was unable to find any alleviating factors. She felt the pain lasted for 10 to 20 minutes and she called the EMS to bring her to the emergency room. While i n the emergency room, the patient had labs and EKG with AFib and inverted T-wave in V5 and flat T-wav e in V6. She had a chest x-ray with no acute findings. She had an initial troponin that was 0.02. Her other labs were fairly unremarkable. Hospitalists were asked to evaluate the patient for admissi on due to her chest pain. While in the hospital, the patient denied chest pain except with palpation to her chest. She reports that she had shoveled off her porch the evening prior to the development of her chest pain. The tro ponins were trended. They were basically flat at 0.02 on presentation and then 0.01 and 0.01. Her e levated BUN resolved while she was here. She underwent a chemical nuclear stress test showing a low risk, but did show a small area of reversible ischemia at the lateral mendoza. Since Ms. Phelan was no l onger having chest pain and feeling well, it was felt that she could be discharged to home and have a followup with outpatient cardiology. Ms. Phelan is stable for discharge to home. PHYSICAL EXAMINATION: Vital signs are as follows: Temperature 98.4, heart rate 105, respiratory rat e 16, O2 sat 98% on room air, blood pressure 151/88. DISCHARGE PLAN: Ms. Phelan will be discharged to home. Activity as tolerated. She should be on a hea rt healthy diet. As far as the patient's chest pain, I suspect this is muscular in nature as she rep orts shoveling prior and her pain is reproducible with palpation. She did have a low risk stress pat t that did show a small area on her lateral wall that could represent ischemia. I have asked her to please see Dr. Mittal in the next week. Dr. Mittal's office will call her with an appointment date and time. At this time, I have not placed her on aspirin due to her history of GI bleed approximately 6 months ago, I will defer that to Cardiology to determine if she should be placed back on aspirin. S he has a followup appointment with her primary care provider, Dr. Damon, on 09/12/17 at 2:30 p.m. She has also been set up with visiting nurse services. The patient has been asked to return to the emergency room for any chest pain or shortness of breath. POINTS FOR FOLLOWUP: The patient's total bili and alkaline phosphatase were elevated on this admissi on. They appeared to have been elevated in the past also. I recommend just to follow on these. The patient was also noted to be intermittently hypertensive during her stay, but in the setting of her h istory of syncope and orthostatic hypotension, I would rather her be a little more towards the hypert ensive side than passing out at home. Please continue to follow her blood pressures and adjust accor dingly. This is a summarized report of a complex medical history and hospital stay. For further details, ple ase see the entire medical record. TIME SPENT: Time for this discharge was approximately 50 minutes, greater than half of that was spen t with the patient and her daughter discussing discharge plan and instructions. CONDITION ON DISCHARGE: Stable. ANDREA BONILLA, MATTHIEU [id number]/[facility] #: [id number]
== END 2017-09-08 15:10 | disposition home or self-care (01) ==
LOC: ED 23:37 → MEDTELE 09-07 03:30
PROVIDERS: ADMIT Hospitalist; ATTEND Internal Medicine
DX: R07.9 Chest pain, unspecified (principal); R06.02 Shortness of breath; I69.354 Hemiplegia and hemiparesis following cerebral infarction affecting left non-dominant side; I48.91 Unspecified atrial fibrillation; I11.0 Hypertensive heart disease with heart failure; I50.30 Unspecified diastolic (congestive) heart failure; G20 Parkinson's disease; I95.1 Orthostatic hypotension; K25.4 Chronic or unspecified gastric ulcer with hemorrhage; Z79.899 Other long term (current) drug therapy; Z88.0 Allergy status to penicillin
CPT/HCPCS: 36415; 71045; 78452; 80053; 82565; 83605; 83735; 83880; 84484; 84520; 85025; 85610; 85730; 93005; 93017; 94760; 96372; 96374; 99284; A9270-GY; A9502; G0378; J0280; J1644; J2785

== ENCOUNTER 2017-12-24 15:37 | Inpatient (IN) | payer MEDICARE ==
[2017-12-24 16:35] LABS: ABS Basophils 0.1 10^3/ul (0-0.2); ABS Eosinophils 0.1 10^3/ul (0-0.6); ABS Lymphocytes 1.4 10^3/ul (1.0-4.8); ABS Monocytes 0.6 10^3/ul (0-0.8); ABS Neutrophils 5.5 10^3/ul (1.5-7.7); ABS Nucleated RBC 0 10^3/ul; Eosinophil % 1.1 % (0-6); Hematocrit 36 % (35-47); Lymphocyte % 18.4 % (25-47); Mean Corpuscular HGB Conc 34 g/dl (31-36); Mean Corpuscular Hemoglobin 32 pg (27-31); Mean Corpuscular Volume 94 fL (80-97); Nucleated Red Blood Cells % 0; Platelet Count 224 10^3/ul (150-450); Red Blood Count 3.81 10^6/ul (4.0-5.4); Red Cell Distribution Width 16 % (10.5-15); White Blood Count 7.7 10^3/ul (3.5-10.8)
[2017-12-24 16:42] LABS: INR 0.9 (0.77-1.02)
--- OUTSIDE RECORDS SUMMARY | 2017-12-24 16:44 | XMS REPORT ---
:1940 External Reference #:[id number] Author Organization [facility] Address [address] [address] Phone [phone] Care Team Providers Name Role Phone Douglas Damon MD Primary Care Physician Unavailable Payers Type Date Identification Numbers Payment Provider Subscriber Medicare Primary Effective: Policy Number: Medicare Humberto Phelan 2002 [id number] PayID: [id number] [address] [place] [address] [facility] Policy Number: [id number] [facility] Humberto Phelan PayID: [id number] [address] [place] [address] Problems Date Description Provider Status Onset: 02/21/2016 Paroxysmal atrial fibrillation Young Mittal M.D., Active [facility] Onset: 02/09/2015 Parkinson's disease zAalea Junior M.D. Active Onset: 02/09/2015 Unexplained weight [...] Active Onset: 07/11/2017 Cardiac pacemaker in situ Kyle Samson M.D.,FACP Onset: 07/15/2017 Chronic atrial fibrillation Young Mittal M.D., Active NARAYAN REYES Onset: 08/27/2017 Disorder of skin AND/OR Douglas Damon M.D. Active subcutaneous tissue Onset: 08/27/2017 Abnormal gait Douglas Damon M.D. Active Onset: 09/16/2017 Chest pain Young Mittal M.D., Active NARAYAN REYES Onset: 10/15/2017 Mixed hyperlipidemia Douglas Damon M.D. Active Onset: 12/10/2017 Shoulder joint pain Douglas Damon M.D. Active Onset: 12/22/2017 Sinus node dysfunction Aamir Ross M.D. Active Onset: 12/22/2017 History of cerebrovascular Aamir Ross M.D. Active accident without residual deficits Onset: 08/03/2014 Atrial fibrillation Young Mittal M.D., Inactive NARAYAN REYES Inactive: 06/16/2017 Onset: 06/15/2015 Dizziness Azalea Junior M.D. Inactive Inactive: 06/16/2017 Onset: 11/20/2016 Cough Douglas Damon M.D. Inactive Inactive: 06/16/2017 Family History Date Family Member(s) Problem(s) Comments Father Heart Disease Mother Heart Disease Social History Type Date Description Comments Lives With Alone Occupation Retired ETOH Use Rarely consumes alcohol half glass of wine once or twice a year Smoking Patient has never smoked Recreational Drug [...] Form Strength Qnty SIG Indications Ordering Provider Amlodipine 09/23/ Active Tablets 5mg 90tabs 1 by Douglas Besylate 2018 mouth Nelson every day , Addison Acetaminophen ER 09/08/ Active Tablets 650mg 1 tab by Unknown 2018 ER mouth q4 hours as needed pain Magnesium-Oxide 07/22/ Active Tablets 400(241.3m 90tabs 1 by Matthew small) mg mouth Von Lantigua, every M.D.,FACP evening Fludrocortisone 04/08/ Active Tablets 0.1mg 30tabs Take One [place] Acetate 2017 Tablet By [place] Hicks M.D. Once Daily Atorvastatin 04/08/ Active Tablets 40mg 90tabs take one Douglas Calcium 2017 tablet by Nelson hicks M.D. once daily Metoprolol 11/20/ Active Tablets 50mg 60tabs take one I10 [place] Tartrate 2017 tablet by Nelson hicks M.D. twice a day Anders 09/09/ Active Misc 1units 4 wheels, Carlos 2017 brakes Bulgarian, and CANTEEN ATTENDANT seat--for daily use Roller Walker 06/11/ Active Misc use daily G20 Azalea Banks 2015 as selwyn Junior M.D. to prevent falls R29.6 Carbidopa-Levodopa 01/03/2014 Active Tablets 25-100mg 195tabs take 2 Alexandra tabs 8am MD Danny 1.5 tabs noon 1 tab 4pm 2 tabs 8pm Omeprazole Active Capsules DR 20mg 60caps take one Douglas capsule Nelson by Addison hicks twice a day before meals Amlodipine Besylate 09/18/2017 Hx Tablets 2.5mg 90tabs 1 by Matthew Lantigua, 09/23/2017 every day Addison,HENRIQUE Klor-Con M10 07/29/2017 Hx Tablets ER 10Meq 14tabs 1 by [place] - mouth Thaddeusika 09/12/2017 every day , Addison Klor-Con M10 07/11/2017 Hx Tablets ER 10Meq 14tabs 1 by Matthew Lantigua, 07/22/2017 every day Addison,ENRIQUETAP Amlodipine Besylate 06/16/2017 Hx Tablets 2.5mg 30tabs 1 by Matthew - mouth Von Lantigua, 06/16/2017 every day MShane,HENRIQUE Harris 04/08/2017 Hx Tablets 2.5mg 60tabs 1 tablet Other - by mouth Ordering 04/22/2017 twice a Provider day. blood thinner. Carafate 02/24/2017 Hx Tablets 1gm 120tabs Take 1 Douglas - Tablet By Pachikara 05/21/2017 Mouth At , M.D. 6Am , 11Am, 5PM, And 9PM (pt not taking) Iron 01/27/2017 Hx Tablets 325(65Fe) 30tabs 1 by Chase - mg mouth Alejandro, MATTHIEU 04/22/2017 every day Hydrocodone-Acetamin 12/25/2016 Hx Tablets 5-325mg 10tabs 1 tab M Douglas ophen - three 5 Pachikara 10/15/2017 times a 1 , M.D. day as . needed 1 pain 6 Amlodipine Besylate 12/11/2016 Hx Tablets 2.5mg 30tabs Take two Douglas - TABLETs [place]ara 05/21/2017 By Mouth , M.D. Every Morning (no longer taking) Amlodipine Besylate 11/27/2016 Hx Tablets 5mg 30tabs 1 by [place] - mouth Pachikara 12/11/2016 every day , M.D. Proair Respiclick 11/20/2016 Hx Aerosol 108(90Bas 1units 2 puffs 3 R Douglas - e) times a 0 Pachikara 2017 mcg/Act day with 5 , M.D. spacer Fluticasone 11/20/2016 Hx Suspension 50mcg/Act 9.900ml 2 sprays R [place] Propionate - each 0 Pachikara 12/25/2016 nostril 5 , M.D. daily Doxycycline Hyclate 11/13/2016 Hx Capsules 100mg 20caps 1 cab J Douglas - twice a 2 [place] 11/22/2016 day 0 , M.D. . 9 Prednisone 11/13/2016 Hx Tablets 10mg 20tabs 4 J Douglas - [id number] 2 [place]ara 11/22/2016 [id number] 0 , M.D. s,[id number] . ays,1tabx 9 day. Losartan 11/12/2016 Hx Tablets 50-12.5mg 30tabs take one Douglas Potassium/Hydrochlor - tab daily [facility] othiazide 11/13/2016 , MShane Famotidine 11/07/2016 Hx Tablets 20mg 60tabs 1 tablet Douglas - [facility] daily , M.D. Fludrocortisone 11/01/2016 Hx Tablets 0.1mg 30tabs 1 by Kaylin Acetate - mouth Ordering 12/25/2016 every day Provider not taking Carafate 11/01/2016 Hx Tablets 1gm 120tabs 1 by Douglas - mouth at [facility] 2017 6am, , M.D. 11am, 4pm and 9pm Omeprazole 11/01/[address] 20mg 60caps 1 by [place] [facility] a , M.D. day before meals Hydrocodone-Acetamin 08/01/2016 Hx Tablets 5-325mg 30tabs 1 by [place] ophen - mouth Pachikara 08/07/2016 daily , M.D. bedtime Acetaminophen 07/17/2016 Hx Capsules 500mg 180caps 2 tab by Harpal Cole - aron 5 [place] 11/05/2016 three 4 , M.D. times a . day as 5 needed Clindamycin HCL 05/07/2016 Hx Capsules 150mg 9caps one Joey - capsule D. Brand, 05/13/2016 by mouth M.D. three times a day for 3 days Lisinopril 07/08/2014 Hx Tablets 20mg 1/2 Gen, - tablet by Mikal Banks, 06/04/2016 aron ROGERS every day Hydrocodone-Acetamin 07/08/2014 Hx Tablets 10-325mg 120tabs 1 tab by Douglas ophen - mouth [facility] 07/17/2016 every 6 , M.D. hours as needed Ropinirole HCL 10/04/2013 Hx Tablets 0.25mg 60tabs 2 PO Qhs Azalea Junior, 06/18/2014 MShane Metoprolol Succinate 03/05/2013 Hx Tablets ER 100mg 180tabs 1 tab by Young ER - 24HR mouth Dunlap 03/05/2013 twice a Mittal, candace Jaime, [facility] FASMA Metoprolol Tartrate 03/05/2013 Hx Tablets 100mg 180tabs 1/2 tab Andres Tavera - by mouth Von Lantigua, 11/20/2016 twice a Addison,[facility] day 11/06/16 (pt taking 1 po bid s/p [facility] stay) Carbidopa/Levodopa 12/01/2012 Hx Tablets 25-100mg 165tabs take 1-1 Azalea M. - 1/2 cap Stackman, 01/03/2014 po 4 M.D. times daily as directed (1 2 - 1 1/2 - 1 12 - 1) Tikosyn 10/22/2012 Hx Capsules 250mcg 60caps 1 by Young - mouth Germán 10/26/2016 twice a candace Mittal M.D., [facility], NARAYAN Jantoven 10/21/2012 Hx Tablets 2mg 90tabs as Young - directed Germán 11/04/2016 Addison Mittal, [facility] Metoprolol Tartrate 08/28/2012 Hx Tablets 50mg 270tabs /2 tabs Young - by mouth Germán 03/05/2013 twice a candace Mittal M.D., [facility], NARAYAN Furosemide 06/16/2012 Hx Tablets 20mg 30tabs 1 by Young - mouth Germán 11/05/2016 every Kyrie, eleazar Jaime, [facility], NARAYAN Lisinopril 06/15/2012 Hx Tablets 5mg 30tabs 1 tab by Young - mouth Germán 08/02/2014 every day Addison Mittal, [facility], NARAYAN Hydrocodone/Acetamin Hx Tablets 5-325mg 40tabs 1 tab po Unknown ophen - qid prn 08/02/2014 Vitamin D3 Hx Capsules 2000Unit 1 by Unknown - mouth 01/22/2016 every day Vitamin B-12 Hx Tablets 1000mcg 1 by Unknown - mouth 12/22/2015 every day Hydrocodone-Acetamin Hx Tablets 5-325mg 60tabs 1 by [place] ophen - mouth Pachikara 07/25/2016 twice , M.D. daily prn. Lisinopril Hx Tablets 10mg 1 by Unknown - mouth 11/05/2016 every day Pain Relief 8 Hour Hx Tablets ER 650mg 1 by Unknown - mouth 12/21/2017 three times a day as needed for pain Sucralfate Hx Tablets 1gm 1 tablet Unknown - by mouth 04/28/2017 at 6am,11am, 4pm, and 9pm Prednisolone Acetate Hx Suspension 1% 1 drop 4 Unknown - times/ 12/21/2017 day in Right eye Ketorolac Hx Solution 0.5% Unknown Tromethamine - 12/21/2017 Ofloxacin Hx Solution 0.3% 2 gtta Unknown (Ophthalmic) - 12/21/2017 Medications Administered in Office Medication Date Status Form Strength Qnty SIG Indications Ordering Provider Inj, Administered Injection Joey Longoria Regadenoson, 013 Addison Bull 0.1 MG Technetium TC Administered Injection Joey Longoria 99M 013 Addison Bull Tetrofosmin, Per Unit Dose Up To 40 Millicuries Immunizations CPT Code Status Date Vaccine Reaction Lot # [id number] Given 05/21/2017 Influenza Virus Vaccine, [id number] Quadrivalent, Split, Preservative Free [id number] Given 05/21/2017 Pneumococcal Conjugate [id number] Vaccine 13 Valent For Intramuscular Use [id number] Given 08/07/2016 Zoster (Zostavax) no immediate reaction [id number] noted ... hh Vital Signs Date Vital Result Comment 12/22/2017 Height 59 inches 4'11" Weight 122.00 lb Heart Rate 72 /min BP Systolic Sitting 106 mmHg BP Diastolic Sitting 76 mmHg Respiratory Rate 15 /min BMI (Body Mass Index) 24.6 kg/m2 12/10/2017 Height 59 inches 4'11" Weight 127.00 lb Heart Rate 52 /min BP Systolic 110 mmHg BP Diastolic 70 mmHg O2 % BldC Oximetry 83 % BMI (Body Mass Index) 25.6 kg/m2 10/15/2017 Height 59 inches 4'11" Weight 125.00 lb Heart Rate 70 /min BP Systolic Sitting 148 mmHg BP Diastolic Sitting 92 mmHg O2 % BldC Oximetry 99 % BMI (Body Mass Index) 25.2 kg/m2 09/16/2017 Height 59 inches 4'11" Weight 123.00 lb with shoes Heart Rate 64 /min BP Systolic Sitting 152 mmHg Lue reg cuff BP Diastolic Sitting 108 mmHg Lue reg cuff BP Systolic Standing 146 mmHg Lue reg cuff BP Diastolic Standing 102 mmHg Lue reg cuff Respiratory Rate 17 /min BMI (Body Mass Index) 24.8 kg/m2 Ejection Fraction 50-55% date 03/12/17 ECHO 09/12/2017 Weight 118.00 lb Heart Rate 69 /min BP Systolic 152 mmHg BP Diastolic 94 mmHg Body Temperature 97.6 F O2 % BldC Oximetry 98 % 08/27/2017 Weight 123.00 lb Heart Rate 65 [...] Test Date Test Result H/L Range Note Lipid Profile (Trig/Chol/HDL) 10/22/2017 Triglycerides 127 mg/dL 1, 2 Cholesterol 151 mg/dL 1, 3 HDL Cholesterol 64.3 mg/dL 1, 4 LDL Cholesterol 61 mg/dL 1, 5 Laboratory test finding 09/06/2017 Lactic Acid 0.8 mmol/L 0.5-2.0 6 CBC Auto Diff 09/06/2017 White Blood Count 9.1 10^3/uL 3.5-10.8 Red Blood Count 3.57 10^6/uL Low 4.0-5.4 Hemoglobin 11.0 g/dL Low 12.0-16.0 Hematocrit 34 % Low 35-47 Mean Corpuscular Volume 94 fL 80-97 Mean Corpuscular Hemoglobin 31 pg 27-31 Mean Corpuscular HGB Conc 33 g/dL 31-36 Red Cell Distribution Width 15 % 10.5-15 Platelet Count 128 10^3/uL Low 150-450 Mean Platelet Volume 9 um3 7.4-10.4 Abs Neutrophils 6.2 10^3/uL 1.5-7.7 Abs Lymphocytes 1.8 10^3/uL 1.0-4.8 Abs Monocytes 0.9 10^3/uL High 0-0.8 Abs Eosinophils 0.2 10^3/uL 0-0.6 Abs Basophils 0.1 10^3/uL 0-0.2 Abs Nucleated RBC 0 10^3/uL Granulocyte % 68.3 % 38-83 Lymphocyte % 19.6 % Low 25-47 Monocyte % 9.6 % High 1-9 Eosinophil % 1.9 % 0-6 Basophil % 0.6 % 0-2 Nucleated Red Blood Cells % 0 Comp Metabolic Panel 09/06/2017 Sodium 139 mmol/L 133-145 Potassium 3.9 mmol/L 3.5-5.0 Chloride 102 mmol/L 101-111 Co2 Carbon Dioxide 30 mmol/L 22-32 Anion Gap 7 mmol/L 2-11 Glucose 102 mg/dL High 70-100 Blood Urea Nitrogen 25 mg/dL High 6-24 Creatinine 0.95 mg/dL 0.51-0.95 BUN/Creatinine Ratio 26.3 High 8-20 Calcium 9.8 mg/dL 8.6-10.3 Total Protein 7.1 g/dL 6.4-8.9 Albumin 4.1 g/dL 3.2-5.2 Globulin 3.0 g/dL 2-4 Albumin/Globulin Ratio 1.4 1-3 Total Bilirubin 1.20 mg/dL High 0.2-1.0 Alkaline Phosphatase 293 U/L High 34-104 Alt 11 U/L 7-52 Ast 33 U/L 13-39 Egfr Non- 56.7 >60 Egfr 73.0 >60 7 Laboratory test finding 09/06/2017 Magnesium 2.0 mg/dL 1.9-2.7 Troponin-I (TnI) 0.02 ng/mL <0.04 B-Type Natriuretic Peptide BNP 512 pg/mL High 8 Inr/Protime 09/06/2017 Inr 0.98 0.77-1.02 Laboratory test finding 09/06/2017 Partial Thrombo Time 29.7 seconds 26.0 -36.3 PTT Basic Metabolic Panel 07/12/2017 Sodium 141 mmol/L 133-145 Potassium 3.4 mmol/L Low 3.5-5.0 Chloride 102 mmol/L 101-111 Co2 Carbon Dioxide 30 mmol/L 22-32 Anion Gap 9 mmol/L 2-11 Glucose 121 mg/dL High 70-100 Blood Urea Nitrogen 24 mg/dL 6-24 Creatinine 0.89 mg/dL 0.51-0.95 BUN/Creatinine Ratio 27.0 High 8-20 Calcium 9.2 mg/dL 8.6-10.3 Egfr Non- 61.2 >60 Egfr 78.7 >60 9 Laboratory test finding 07/12/2017 Magnesium 1.5 mg/dL Low 1.9-2.7 Inr/Protime 07/12/2017 Inr 0.99 0.89-1.11 Urinalysis Profile 06/16/2017 Urine Color Yellow Urine Appearance Clear Urine Specific [place] 1.013 1.010-1.030 Urine pH 6.0 5-9 Urine Urobilinogen Negative Negative Urine Ketones Trace Negative Urine Protein Negative Negative Urine Leukocytes Trace Negative Urine Blood 1+ Negative Urine Nitrite Negative Negative Urine Bilirubin Negative Negative Urine Glucose Negative Negative Urine White Blood Cell 1+(6-10/hpf) Absent Urine Red Blood Cell 3+(>10/hpf) Absent Urine Bacteria Absent Absent Urine Squamous Epithelial Cell Present Absent Urine Culture And 06/16/2017 Urine Culture SEE RESULT BELOW 10 Sensitivities CBC Auto Diff 06/15/2017 White Blood Count [...] Nucleated Red Blood Cells % 0 Inr/Protime 06/15/2017 Inr 0.98 0.89-1.11 Laboratory test finding 06/15/2017 Partial Thrombo Time 26.6 seconds 26.0 -36.3 PTT Comp Metabolic Panel 06/15/2017 Sodium 140 mmol/L [...] Egfr Non- 52.3 >60 Egfr 67.2 >60 11 Type & Screen 06/15/2017 Patient Blood Type O Positive Antibody Screen NEGATIVE Inr/Protime 05/12/2017 Inr 0.91 0.89-1.11 Laboratory test finding 05/12/2017 Partial Thrombo Time 27.0 seconds 26.0 -36.3 PTT Lactic Acid 1.1 mmol/L 0.5-2.0 12 CBC Auto Diff 05/12/2017 White Blood Count [...] Blood Cells % 0 Comp Metabolic Panel 05/12/2017 Sodium 140 mmol/L [...] Egfr Non- 58.9 >60 Egfr 75.7 >60 13 Laboratory test finding 05/12/2017 Magnesium 2.0 mg/dL 1.9-2.7 Troponin-I (TnI) 0.00 ng/mL <0.04 TSH (Thyroid Stim Horm) 0.68 mcIU/mL 0.34-5.60 Laboratory test finding 03/12/2017 Lactic Acid 0.8 mmol/L 0.5-2.0 14 CBC Auto Diff 03/12/2017 White Blood Count [...] Egfr Non- 59.6 >60 Egfr 76.7 >60 15 Lipid Profile (Trig/Chol/HDL) 03/12/2017 Triglycerides 98 mg/dL 16 Cholesterol 185 mg/dL 17 HDL Cholesterol 59.0 mg/dL 18 LDL Cholesterol 106 mg/dL 19 Laboratory test finding 03/12/2017 Troponin-I (TnI) 0.01 ng/mL <0.04 Inr/Protime 03/12/2017 Inr 0.94 0.89-1.11 Laboratory test finding 03/12/2017 Partial Thrombo Time 24.9 seconds Low 26.0-36.3 PTT Urinalysis Profile 03/12/2017 Urine Color Straw Urine Appearance Cloudy Urine Specific [place] 1.010 1.010-1.030 Urine pH 7.0 5-9 Urine Urobilinogen Negative Negative Urine Ketones Negative Negative Urine Protein Negative Negative Urine Leukocytes Negative Negative Urine Blood 1+ Negative Urine Nitrite Negative Negative Urine Bilirubin Negative Negative Urine Glucose Negative Negative Urine White Blood Cell Trace(0-5/hpf) Absent Urine Red Blood Cell 2+(6-10/hpf) Absent Urine Bacteria Absent Absent Urine Squamous Epithelial Cell Present Absent Type & Screen 03/12/2017 Patient Blood Type O Positive Antibody Screen NEGATIVE Laboratory test finding 03/12/2017 TSH (Thyroid Stim Horm) 0.61 mcIU/mL 0.34-5.60 CBC Auto Diff 12/31/2016 White Blood Count [...] Egfr Non- 50.7 >60 Egfr 65.2 >60 20 CBC Auto Diff 11/20/2016 White Blood Count [...] test 10/24/2016 Surgical Interface SEE RESULT BELOW 21 finding Order CBC Auto Diff 10/23/2016 White [...] finding 10/23/2016 Lactic Acid 0.7 mmol/L 0.5-2.0 22 Comp Metabolic Panel 10/23/2016 Sodium 136 mmol/L [...] Egfr Non- 21.9 >60 Egfr 28.2 >60 23 Laboratory test finding 10/23/2016 Magnesium 2.4 mg/dL 1.9-2.7 Troponin-I (TnI) 0.01 ng/mL <0.04 24 TSH (Thyroid Stim Horm) 0.35 mcIU/mL 0.34-5.60 Urinalysis Profile 10/23/2016 Urine Color Yellow Urine Appearance Clear Urine Specific [place] 1.011 1.010-1.030 Urine pH 5.0 5-9 Urine [...] And 10/23/2016 Urine Culture SEE RESULT BELOW 25 Sensitivities Inr/Protime 10/07/2016 Inr 2.99 High 0.89-1.11 26 Inr/Protime 09/25/2016 Inr 3.98 High 0.89-1.11 26 Inr/Protime 09/19/2016 Inr 3.51 High 0.89-1.11 Inr/Protime 08/16/2016 Inr 2.85 High 0.89-1.11 26 Comp Metabolic Panel 08/16/2016 Sodium 138 mmol/L [...] Egfr Non- 60.6 >60 Egfr 77.9 >60 27 Lipid Profile (Trig/Chol/HDL) 08/16/2016 Triglycerides 142 mg/dL 28 Cholesterol 224 mg/dL 29 HDL Cholesterol 55.5 mg/dL 30 LDL Cholesterol 140 mg/dL 31 Inr/Protime 07/23/2016 Inr 2.85 High 0.89-1.11 26 Laboratory test finding 07/18/2016 Magnesium 2.3 mg/dL 1.9-2.7 32, 33 Basic Metabolic Panel 07/18/2016 Sodium 137 mmol/L 133-145 32 Potassium 4.9 mmol/L 3.5-5.0 32 Chloride 104 mmol/L 101-111 32 Co2 Carbon Dioxide 27 mmol/L 22-32 32 Anion Gap 6 mmol/L 2-11 32 Glucose 102 mg/dL High 70-100 32 Blood Urea Nitrogen 33 mg/dL High 6-24 32 Creatinine 0.94 mg/dL 0.51-0.95 32 BUN/Creatinine Ratio 35.1 High 8-20 32 Calcium 9.4 mg/dL 8.6-10.3 32 Egfr Non- 57.6 >60 32 Egfr 74.1 >60 32, 34 Laboratory test finding 07/01/2016 Magnesium 2.1 mg/dL [...] Egfr Non- 57.6 >60 Egfr 74.1 >60 35 Inr/Protime 07/01/2016 Inr 1.91 High 0.89-1.11 36 Inr/Protime 06/21/2016 Inr 2.89 High 0.89-1.11 36 Inr/Protime 06/13/2016 Inr 3.30 High 0.89-1.11 Inr/Protime 06/07/2016 Inr 1.58 High 0.89-1.11 36 Inr/Protime 05/29/2016 Inr 1.61 High 0.89-1.11 Laboratory test 05/07/2016 Surgical Pathology SEE RESULT BELOW 37 finding Basic Metabolic Panel 05/03/2016 Sodium 138 mmol/L 133-145 Potassium 4.7 mmol/L 3.5-5.0 Chloride 105 mmol/L 101-111 Co2 Carbon Dioxide 25 mmol/L 22-32 Anion Gap 8 mmol/L 2-11 Glucose 95 mg/dL 70-100 Blood Urea Nitrogen 31 mg/dL High 6-24 Creatinine 1.21 mg/dL High 0.51-0.95 BUN/Creatinine Ratio 25.6 High 8-20 Calcium 8.9 mg/dL 8.6-10.3 Egfr Non- 43.0 >60 Egfr 55.3 >60 38 Inr/Protime 05/03/2016 Inr 2.03 High 0.89-1.11 CBC Auto Diff 05/03/2016 White Blood Count [...] 0-2 Nucleated Red Blood Cells % 0 Pre Cath Panel 05/03/2016 Partial Thrombo Time PTT 31.8 seconds 26.0- 36.3 CBC Auto Diff 04/09/2016 White Blood Count [...] Egfr Non- 43.9 >60 Egfr 56.4 >60 39 Laboratory test finding 04/09/2016 Free T4 (Free Thyroxine) 0.88 ng/dL 0.61-1.12 TSH (Thyroid Stim Horm) 0.50 mcIU/mL 0.34-5.60 Vitamin B12 411 pg/mL 180-914 40 Inr/Protime 11/07/2015 Inr 2.32 High 0.89-1.11 Laboratory [...] Egfr Non- 55.8 >60 Egfr 71.8 >60 41 Lipid Profile (Trig/Chol/HDL) 06/02/2014 Triglycerides 144 mg/dL 42 Cholesterol 165 mg/dL 43 HDL Cholesterol 39.6 mg/dL 44 LDL Cholesterol 97 mg/dL 45 Laboratory test finding 06/02/2014 Vitamin B12 209 pg/mL 180-914 46 TSH (Thyroid Stimulating Horm) 0.44 IU/mL 0.34-5.60 CRP High Sensitivity 13.43 mg/L 47 CBC Auto Diff 06/02/2014 White Blood Count [...] Red Blood Cells % 0.1 Laboratory test 03/28/2014 Inr 2.50 High 0.85-1.06 finding Laboratory test 03/18/2014 Inr 1.42 High 0.85-1.06 finding Laboratory test 02/24/2014 Inr 3.41 High 0.85-1.06 finding Laboratory test 02/04/2014 Inr 1.99 High 0.85-1.06 finding Laboratory test 01/20/2014 Inr 1.67 High 0.85-1.06 finding Laboratory test 11/01/2013 Inr 2.34 High 0.85-1.06 finding Inr/Protime 10/04/2013 Inr 3.57 High 0.85-1.06 Laboratory test 07/29/2013 Inr 1.95 High 0.85-1.06 48 finding Laboratory test 07/22/2013 C Reactive Protein < 0.5 mg/dL Less than 0.5 finding Erythrocyte Sed Rate 15 mm/Hr 0-40 Jolly (Anti-Nuclear AB) Screen Negative Negative 49 Rheumatoid Factor <15 IU/mL <15 50 Laboratory test finding 07/22/2013 Inr 4.62 High 0.85-1.06 51 Laboratory test finding 06/02/2013 Inr 3.08 High [...] Egfr Non- 54.1 >60 Egfr 69.5 >60 52 Laboratory test finding 06/02/2013 Magnesium 2.3 mg/dL [...] Egfr Non- 54.2 >60 Egfr 69.7 >60 53 Laboratory test finding 01/06/2013 Magnesium 2.1 mg/dL 1.7-2.6 Inr/Protime 01/06/2013 Inr 2.24 High 0.87-0.97 Laboratory test finding 08/21/2012 Inr 3.56 High 0.82-1.17 54 Laboratory test finding 05/28/2012 Magnesium 2.5 mg/dL 1.7-2.6 Basic Metabolic Panel 05/28/2012 Sodium 138 mmol/L 133-145 Potassium 4.2 mmol/L 3.5-5.0 Chloride 110 mmol/L 101-111 Co2 Carbon Dioxide 26.0 mmol/L 22-32 Anion Gap 2.0 mmol/L 2-11 Glucose 100 mg/dL 70-100 Blood Urea Nitrogen 17 mg/dL 6-24 Creatinine 0.90 mg/dL 0.50-1.40 BUN/Creatinine Ratio 18.9 8-20 Calcium 9.1 mg/dL 8.1-9.9 Egfr Non- 61.2 >60 Egfr 78.7 >60 55 Laboratory test finding 05/28/2012 Inr 2.06 High 0.82-1.17 56 1 FASTING 10 HOUR 2 Desirable: <150 Borderline High: 150-199 High: 200-499 Very High: >500 3 Desirable: <200 Borderline High: 200-239 High: >239 4 Low: <40 Desirable: 40-60 High: >60 5 Desirable: <100 Near Optimal: 100-129 Borderline High: 130-159 High: 160-189 Very High: >189 6 [facility] Severe Sepsis and Septic Shock Management Bundle [...] 5 Kidney failure <15 (or dialysis) 8 >100 to <200 pg/mL: likely compensated congestive heart failure (CHF) 200 to 400 pg/mL: likely moderate CHF >400 pg/mL: likely moderate to severe CHF 9 Because ethnic data is not always readily [...] 15-29 5 Kidney failure <15 (or dialysis) 10 SEE RESULT BELOW Name: HUMBERTO PHELAN : [address]: Vish Clement MD Acct: [id number] Unit: [id number] AGE: 77 Location: ED Re06/15/17 SEX: F Status: REG ER SPEC: [id number] NATE: 06/16/[address]: Vish Clement MD REQ: [id number] RECD: 06/16/17 STATUS: INDIO TRACY DR: Douglas Damon MD _ SOURCE: URINE SPDESC: ORDERED: Urine Culture Procedure Result Reported Site Urine Culture Final 06/17/17- 39 ML No growth of clinically significant organisms * ML - MAIN LAB ([facility]) . END OF REPORT * ML=Testing performed at Main Lab DEPARTMENT OF PATHOLOGY, [address] [place] [address] Enrrique Roberts M.D. Director [facility] # [id number] 11 Because ethnic data is not always readily [...] 15-29 5 Kidney failure <15 (or dialysis) 12 [facility] Severe Sepsis and Septic Shock Management Bundle Measure requires all lactic acids initially measuring >2.0 mmol/L be repeated. 13 Because ethnic data is not always readily [...] 15-29 5 Kidney failure <15 (or dialysis) 14 [facility] Severe Sepsis and Septic Shock Management Bundle [...] 5 Kidney failure <15 (or dialysis) 16 Desirable <150 Borderline high 150-199 High 200-499 Very High >500 17 Desirable <200 Borderline high 200-239 High >239 18 Low <40 Desirable: 40-60 High: >60 19 Desirable: <100 mg/dL Near Optimal: 100-129 mg/dL Borderline High: 130-159 mg/dL High: 160-189 mg/dL Very High: >189 mg/dL 20 Because ethnic data is not always readily [...] 15-29 5 Kidney failure <15 (or dialysis) 21 SEE RESULT BELOW Name: HUMBERTO PHELAN : [address]: Barbi Goff MD Acct: [id number] Unit: [id number] AGE: 76 Location: [place] [address] Re10/24/16 SEX: F Status: ADM IN SPEC: [id number] NATE: 10/24/16-1622 [facility] DR: Venkata Bearden MD REQ: [id number] RECD: 10/24/16 STATUS: BLAKE TRACY DR: Dagoberto Damon MD _ ORDERED: H [facility], LEVEL IV Addendum: An immunohistochemical stain for [...] performed at Main Lab DEPARTMENT OF PATHOLOGY, [address] [place] [address] Enrrique Roberts M.D. Director [facility] # [id number] 22 [facility] Severe Sepsis and Septic Shock Management Bundle Measure requires all lactic acids initially measuring >2.0 mmol/L be repeated. 23 Because ethnic data is not always readily [...] 15-29 5 Kidney failure <15 (or dialysis) 24 99th percentile=0.04 ng/mL Troponin results at [facility] and [facility] are not interchangeable. 25 SEE RESULT BELOW Name: HUMBERTO PHELAN : [address]: Singh Arvizu MD Acct: [id number] Unit: [id number] AGE: 76 Location: [place] [address] Re10/24/16 SEX: F Status: ADM IN SPEC: [id number] NATE: 10/23/16 [facility] DR: Aniceto Espinosa MD REQ: [id number] RECD: 10/23/16 STATUS: INDIO TRACY DR: Douglas Damon MD _ SOURCE: URINE [facility]: ORDERED: Urine Culture Procedure Result Reported Site Urine Culture Final 10/25/16- 811 ML Organism 1 PROTEUS MIRABILIS [place] Count 10-25,000 (Moderate) CFU/ML 1. PROTEUS MIRABILIS [...] performed at Main Lab DEPARTMENT OF PATHOLOGY, [address] [place] [address] Enrrique Roberts M.D. Director [facility] # [id number] 26 STANDING ORDER ENTERED 05/25/16 EXPIRES 11/12/16 Q MONTHLY AND PRN 27 Because ethnic data is not always [...] 5 Kidney failure <15 (or dialysis) 28 Desirable <150 Borderline high 150-199 High 200-499 Very High >500 29 Desirable <200 Borderline high 200-239 High >239 30 Low <40 Desirable: 40-60 High: >60 31 Desirable: <100 mg/dL Near Optimal: 100-129 mg/dL Borderline High: 130-159 mg/dL High: 160-189 mg/dL Very High: >189 mg/dL 32 ORDERED 06/27/16 EXPIRES 12/25/16 CC: NELSON 33 ORDERED 06/27/16 EXPIRES 12/25/16 CC: NELSON 34 Because ethnic data is not always readily [...] 15-29 5 Kidney failure <15 (or dialysis) 35 Because ethnic data is not always readily [...] 15-29 5 Kidney failure <15 (or dialysis) 36 STANDING ORDER ENTERED 05/25/16 EXPIRES 11/12/16 Q MONTHLY AND PRN 37 SEE RESULT BELOW Name: HUMBERTO PHELAN : [address]: Joey Bull MD Acct: [id number] Unit: [id number] AGE: 76 Location: [facility] Re05/07/16 SEX: F Status: REG REF SPEC: [id number] NATE: 05/07/16 [facility] DR: Joey Bull MD REQ: [id number] RECD: 05/07/16 STATUS: SOUT _ ORDERED: LEVEL I FINAL DIAGNOSIS Pacemaker generator: Foreign body (pacemaker generator) (Gross diagnosis). PRE-OPERATIVE DIAGNOSIS Sick sinus syndrome, E.R.I. GROSS DESCRIPTION The specimen is received fresh with no source identified, and consists of a 4.7 x 4.5 x 0.6 cm silver metallic medical secretary. The following inscription is identified: [employer] Sensia [id number] DDDR SN [id number] [facility]. Per established hospital medical staff protocol, no tissue is submitted. Gross only. Signed (signature on file) Anali Malone MD 1046 END OF REPORT * ML=Testing performed at Main Lab DEPARTMENT OF PATHOLOGY, [address] [place] [address] Enrrique Roberts M.D. Director [facility] # [id number] 38 Because ethnic data is not always readily [...] 15-29 5 Kidney failure <15 (or dialysis) 39 Because ethnic data is not always readily [...] 15-29 5 Kidney failure <15 (or dialysis) 40 Normal Range 180 to 914 Indeterminate Range 145 to 180 Deficient Range <145 41 Because ethnic data is not always readily [...] 15-29 5 Kidney failure <15 (or dialysis) 42 Desirable <150 Borderline high 150-199 High 200-499 Very High >500 43 Desirable <200 Borderline high 200-239 High >239 44 Low <40 Desirable: 40-60 High: >60 45 Desirable <100 Near Optimal 100-129 Borderline high 130-159 High 160-189 Very High >189 46 Normal Range 180 to 914 Indeterminate Range 145 to 180 Deficient Range <145 47 Low risk: <1.00 Average risk: 1.00-3.00 High risk: >3.00 48 Please note the change in the INR reference range effective 13. 49 @Sample frozen by [id number] at 1056 on 07/22/13. 50 Test Performed by: [place] [address] Dairy Processing Equipment Operator: Carmine Loomis III, M.D. 51 Please note the change in the INR reference range effective 13. 52 Because ethnic data is not always readily [...] 15-29 5 Kidney failure <15 (or dialysis) 53 Because ethnic data is not always readily [...] 15-29 5 Kidney failure <15 (or dialysis) 54 The INR(International Normalized Ratio) was adopted by [...] from prosthetic heart valves 2.5 - 3.5 55 Because ethnic data is not always readily [...] 15-29 5 Kidney failure <15 (or dialysis) 56 Recommended INR for Patients on Oral Anticoagulants Prophylaxis 2.0 - 3.0 Treatment of thrombosis 2.0 - 3.0 Prevention of embolism 2.0 - 3.0 Prevention of embolism from prosthetic heart valves 2.5 - 3.5 Procedures Date CPT Code Description Status Comment 12/10/2017 63097 Pace Maker Eval W/Iterative Completed Adjment Dual Lead 12/10/2017 22404 Pace Maker Eval W/Iterative Completed Adjment Dual Lead 09/16/2017 65690 EKG Tracing & Completed Interpretation 09/08/2017 99430 Treadmill Interp/Report Only Completed 09/08/2017 85278 Stress Test Supervsn W/Out Completed I/R 08/20/2017 Diabetic Retinal Eye Exam Completed Document: 08/20/17 - Consult Ophthalmology - [facility] 07/11/2017 41304 Holter Monitor Review (24 Completed hr)dr review & interp only 07/08/2017 11765 ECG Monitor/Recording Completed W/Visual Superimposition Scanning 06/30/2017 Diabetic Retinal Eye Exam Completed Document: 06/30/17 - Consult Ophthalmology - [facility] 05/05/2017 46701 EKG Tracing & Completed Interpretation 03/27/2017 29322 EKG, Interpretation Only Completed 03/14/2017 33816 Interrogation Device Eval In Completed Person W/DR Analysis,Single,Dual,Mul 03/12/2017 46966 EEG Recording Awake & Completed Drowsy 03/12/2017 82593 ECHO Transthorasic Realtime Completed 2D W Doppler & Color Flow Hosp 12/02/2016 38699 Pace Maker Eval W/Iterative Completed Adjment Dual Lead 11/20/2016 32175 Inhalation [place] For Acute Completed Airway Obstruction W/Nebulizer/Inhaler 11/06/2016 23113 EKG Tracing & Completed Interpretation 10/28/2016 02728 Treadmill Interp/Report Only Completed 10/28/2016 21200 Stress Test Supervsn W/Out Completed I/R 10/27/2016 87310 EKG, Interpretation Only Completed 10/23/2016 08525 ECHO Transthorasic Realtime Completed 2D W Doppler & Color Flow Hosp 06/04/2016 76529 Pace Maker Eval W/Iterative Completed Adjment Dual Lead 05/07/2016 16063 Removal With Replacement Dual Completed Lead System Pulse Generator 05/01/2016 59546 Interrogation Device Eval In Completed Person W/DR Analysis,Single,Dual,Mul 04/19/2016 14357 Pace Maker Eval W/Iterative Completed Adjment Dual Lead 02/21/2016 46810 EKG Tracing & Completed Interpretation 02/09/2016 81727 Interrogation Device Eval In Completed Person W/DR Analysis,Single,Dual,Mul 11/09/2015 49791 Interrogation Device Eval In Completed Person W/DR Analysis,Single,Dual,Mul 08/16/2015 66058 Pace Maker Eval W/Iterative Completed Adjment Dual Lead 03/14/2015 43405 EKG Tracing & Completed Interpretation 03/08/2015 52397 Interrogation Device Eval In Completed Person W/DR Analysis,Single,Dual,Mul 12/27/2014 58287 Interrogation Device Eval In Completed Person W/DR Analysis,Single,Dual,Mul 08/03/2014 56174 EKG Tracing & Completed Interpretation 06/08/2014 52433 Pace Maker Eval W/Iterative Completed Adjment Dual Lead 11/18/2013 75718 Pace Maker Eval W/Iterative Completed Adjment Dual Lead 09/08/2013 Mammogram Completed 05/25/2013 12668 Cardiac Event Monitor Completed 04/23/2013 68977 EKG Tracing & Completed Interpretation 04/22/2013 21481 Pace Maker Eval W/Iterative Completed Adjment Dual Lead 11/09/2012 53539 Pace Maker Eval W/Iterative Completed Adjment Dual Lead 11/06/2012 26124 Stress Test Completed 11/06/2012 49212 Myocardial Perfusion Imaging Completed Tomographic (Spect) Multiple Studies 08/28/2012 31927 EKG Tracing & Completed Interpretation 08/26/2012 44508 Pace Maker Eval W/Iterative Completed Adjment Dual Lead Encounters Type Date Location Provider CPT E/M Dx Office Visit 12/10/2017 11:00a [facility] Internal Medicine Douglas Damon 31396 Yue0 Koko King M.D. I48.2 M25.511 I95.1 Office Visit 10/15/2017 10:00a [facility] Internal Medicine Douglas Damon M.D. 59552 I10 - Christine R26.81 I48.2 E78.2 M25.511 Office Visit 09/16/2017 1:45p [facility], 01878 R07.89 Christin Jaime, [facility] Office Visit 09/12/2017 2:40p [facility] Internal Medicine - Chase Allen, CANTEEN ATTENDANT 695[address] I10 [place] R94.5 R07.89 Office Visit 09/08/2017 8:13a [facility] Vannessa De La Paz, 70235 R07.9 Assoc,pc CANTEEN ATTENDANT Hospitalists G20 I48.91 Z86.73 Office Visit 09/07/2017 8:13a [facility] [place], [address] R07.9 Assoc,pc Hospitalists M.DGrant G20 I48.91 Z86.73 Office Visit 08/27/2017 9:40a [facility] Internal Medicine Douglas Damon, 12429 L98.9 - Christine Jaime R26.81 Office Visit 07/18/2017 1:40p [facility] Internal Douglas Damon, 49608 Z01.818 [facility] [address] [place] I10 I48.2 G20 Office Visit 07/15/2017 2:45p [facility] Mittal, 00733 I48.2 Christin Jaime, [facility] H26.9 Z01.810 Office Visit 07/15/2017 3:00p [facility] Azalea Junior, 30304 G20 Services Of Christin Jaime I48.0 I69.354 Office Visit 07/02/2017 11:40a [facility] Internal Medicine Douglas Damon, 07438 R26.9 - Christine Jaime Office Visit 06/18/2017 11:20a [facility] Internal Medicine Douglas Damon, 01095 G45.9 - Christine Jaime R42 R29.6 Office Visit 05/21/2017 8:40a [facility] Internal Medicine Douglas Damon M.D. 42251 I10 - Christine I63.9 I95.2 Z23 Office Visit 05/05/2017 9:45a [facility] Germán Mittal, 78664 I48.0 Community Recreation Coordinator M.Von, FACC, FASNC Office Visit 04/22/2017 2:00p [facility] Internal Medicine - Douglas Damon, [address] M.D. I10 I63.9 R07.89 R29.6 Office Visit 03/21/2017 4:50p [facility] Shirley Friedman, 65527 I63.9 M.DGrant I48.91 Office Visit 03/20/2017 4:23p [facility] Barbi Shell, 01683 I63.20 Assoc,pc Hospitalists M.D. I10 G20 I95.1 Office Visit 03/19/2017 4:23p [facility] Barbi Shell, 00020 I63.20 Assoc,pc Hospitalists M.D. I10 G20 I95.1 Office Visit 03/17/2017 4:22p [facility] Barbi Shell, 05330 I63.20 Assoc,pc Hospitalists M.D. I10 G20 I95.1 Office Visit 03/16/2017 3:43p [facility] Barbi Shell, 55409 I63.40 Assoc,pc Hospitalists M.D. I48.0 I95.1 Office Visit 03/15/2017 3:43p [facility] Barbi Shell, 42779 I63.40 Assoc,pc Hospitalists M.D. I48.0 I95.1 Office Visit 03/14/2017 9:06a [facility] [place] [address] R55 [facility] I63.9 Z95.0 I49.5 Office Visit 03/14/2017 3:42p [facility] Barbi Shell, 81847 I63.40 Assoc,pc Hospitalists M.D. I48.0 I95.1 I47.2 Office Visit 03/13/2017 3:42p [facility] Barbi Shell, 75655 I63.40 Assoc,pc Hospitalists M.D. I48.0 I95.0 G20 Office Visit 03/13/2017 2:31p [facility] Steve Baker, 84106 I63.40 MShane I10 I48.91 Office Visit 03/12/2017 2:31p [facility] Steve Baker, 82226 I63.40 M.DGrant I10 I48.91 R55 Office Visit 03/12/2017 3:41p [facility] [place]oc, [place] [address] I63.40 Hospitalists I48.0 G20 I95.1 Office Visit 02/20/2017 11:45a [facility] Azalea Junior, 02950 G20 Services Of Christin Jaime I95.1 Office Visit 02/03/2017 1:00p [facility] Mittal, 76521 I48.0 Christin Jaime, [facility] Office Visit 2017 9:20a [facility] Internal Medicine - Douglas Damon, 25448 M51.16 Christine Jaime I48.0 Office Visit 12/25/2016 10:40a [facility] Internal Douglas Damon, 40151 K29.61 Medicine - Christine Jaime M51.16 I48.0 I12.9 N18.9 Office Visit 11/22/2016 10:00a [facility] Internal Medicine Douglas Damon M.D. 30488 R05 - [address] Office Visit 11/20/2016 8:20a [facility] Internal Medicine Douglas Damon M.D. 46551 R05 - [place] D64.9 I10 Office Visit 11/13/2016 9:20a [facility] Internal Medicine Douglas Damon M.D. 11081 I10 - [place] I95.1 I48.0 K25.0 J20.9 Office Visit 11/13/2016 11:15a [facility] Azalea Junior, 54802 I95.1 Services Of Christin Jaime G20 Office Visit 11/06/2016 10:15a [facility] Young Mittal M.D., 09642 I48.0 [facility] I49.5 Z95.0 I47.2 R94.31 Office Visit 11/01/2016 1:21p [facility] Vannessa De La Paz, 32318 K92.2 Assoc,pc CANTEEN ATTENDANT Hospitalists R55 D64.9 G20 Office Visit 10/31/2016 1:20p [facility] Vannessa Brain, 61626 K92.2 Assoc,pc CANTEEN ATTENDANT Hospitalists R55 D64.9 G20 Office Visit 10/30/2016 1:19p [facility] Vannesas Brain, 92287 K92.2 Assoc,pc CANTEEN ATTENDANT Hospitalists R55 D64.9 G20 Office Visit 10/30/2016 2:53p [facility] [address] I95.1 G20 Office Visit 10/29/2016 1:19p [facility] [address] K92.2 Hospitalists D64.9 G20 R55 Office Visit 10/29/2016 2:52p [facility] [address] I95.1 G20 Office Visit 10/28/2016 10:07a [facility] [address] K92.2 Hospitalists D64.9 G20 R55 Office Visit 10/27/2016 10:06a [facility] [address] K92.2 Hospitalists D64.9 G20 R55 Office Visit 10/27/2016 1:52p [facility] Gustavo Izquierdo M.D. 11720 I47.2 R55 Office Visit 10/26/2016 1:53p [facility] Gustavo Izquierdo M.D. 16135 R55 I48.0 I47.2 Office Visit 10/26/2016 10:06a [facility] [address] K92.2 Hospitalists D64.9 G20 R55 Office Visit 10/25/2016 10:05a [facility] [place] [address] K92.2 Hospitalists D64.9 G20 R55 Office Visit 10/24/2016 10:05a [facility] [address] K92.2 Hospitalists D64.9 G20 Office Visit 10/23/2016 10:04a [facility] Assoc,pc Dafne Lord, N.P. 78302 K92.2 Hospitalists D64.9 G20 Office Visit 09/23/2016 3:00p [facility] Internal Medicine - Chase Allen, CANTEEN ATTENDANT 53696 I10 [place] S09.90xA Office Visit 08/22/2016 1:45p [facility] Azalea Junior, 24680 G20 Services Of Community Recreation Coordinator M.D. G25.81 G43.009 M25.532 R29.6 Office Visit 08/07/2016 9:40a [facility] Internal Medicine Douglas Damon, 88049 M54.5 - [place] M.Von I25.9 Z23 Office Visit 07/24/2016 4:40p [facility] Internal Medicine Douglas Damon, 27384 M17.0 - [place] M.DGrant Office Visit 07/17/2016 10:00a [facility] Internal Medicine Douglas Damon, 70804 M54.5 - [place] M.Von G20 I48.0 Office Visit 06/21/2016 9:30a [facility] Azalea Junior, 82184 G20 Services Of Community Recreation Coordinator M.D. G25.81 M54.5 M79.661 S80.811S Office Visit 05/01/2016 11:00a [facility] Joey Bull, 45877 I49.5 Community Recreation Coordinator M.D. Z95.0 Office Visit 04/09/2016 10:15a [facility] Azalea Junior, 74178 G20 Services Of Community Recreation Coordinator M.D. G25.81 R40.0 Office Visit 02/21/2016 9:15a [facility] Mittal, 20662 I48.0 Community Recreation Coordinator M.D., FAC, [facility] Office Visit 10/19/2015 10:45a [facility] Azalea Junior, 05395 G20 Services Of Community Recreation Coordinator M.D. G25.81 Office Visit 06/15/2015 10:15a [facility] Azalea Junior, 90046 G20 Services Of Community Recreation Coordinator M.D. G25.81 R42 Office Visit 03/14/2015 1:45p [facility] Mittal, 86751 427.31 Community Recreation Coordinator M.D., FACC, [facility] Office Visit 02/09/2015 9:45a [facility] Azalea Junior, 02199 332.0 Services Of Community Recreation Coordinator M.D. 333.94 783.21 Office Visit 10/13/2014 10:15a [facility] Azalea Junior, 42330 332.0 Services Of Community Recreation Coordinator M.D. 333.94 Office Visit 08/03/2014 1:45p [facility] Young Germán Mittal, 72838 427.31 M.D., FAC, [facility] Office Visit 06/28/2014 9:45a [facility] Azalea Junior, 03064 332.0 Services Of Community Recreation Coordinator M.D. 333.94 Office Visit 08/26/2013 1:15p [facility] Azalea Junior, 78798 332.0 Services Of Community Recreation Coordinator M.D. 333.94 729.1 Office Visit 07/12/2013 11:45a [facility] Germán Mittal, 41135 785.1 Community Recreation Coordinator M.D., FACC, [facility] Office Visit 07/09/2013 9:30a [facility] Azalea Junior, 24945 332.0 Services Of Community Recreation Coordinator M.D. Office Visit 04/23/2013 9:45a [facility] Germán Mittal, 59080 427.81 Community Recreation Coordinator M.D., FACC, [facility] Office Visit 03/12/2013 11:00a [facility] Azalea Junior, 19306 332.0 Services Of Community Recreation Coordinator M.D. Office Visit 12/08/2012 11:30a [facility] Azalea Junior, 25946 332.0 Services Of Community Recreation Coordinator M.D. Office Visit 11/16/2012 8:45a [facility] Germán Mittal, 73655 414.9 Community Recreation Coordinator M.D., FACC, [facility] Office Visit 10/12/2012 11:15a [facility] Germán Mittal, 44533 427.31 Community Recreation Coordinator M.D., FACC, [facility] Office Visit 08/28/2012 8:15a [facility] Germán Mittal, 36800 414.9 Community Recreation Coordinator M.D., FACC, [facility] 427.31 Office Visit 05/29/2012 3:00p [facility] Azalea Junior, 44156 332.0 Services Of [facility] [place] Office Visit 09/09/2006 3:30p Neurosurgery Services Dao Ceballos, 11479 721.0 Of [facility] [place] 721.3 Plan of Care Future Appointment(s):03/27/2018 10:15 am - Aamir Ross M.D. at [facility]02/11/2018 11:20 am - Douglas Damon M.D. 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
--- OUTSIDE RECORDS SUMMARY | 2017-12-24 16:46 | XMS REPORT ---
:1940 External Reference #:[id number] Author Organization [facility] Address [address] [address] Phone [phone] Care Team Providers Name Role Phone Douglas Damon MD Primary Care Physician Unavailable Payers Type Date Identification Numbers Payment Provider Subscriber Medicare Primary Effective: Policy Number: Medicare Humberto Phelan 2002 [id number] PayID: [id number] [address] [place] [address] [facility] Part B Policy Number: [id number] [facility] Humberto Phelan PayID: [id number] [address] [place] [address] Problems Date Description Provider Status Onset: 02/21/2016 Paroxysmal atrial fibrillation Young Mittal M.D., Active [facility], [facility] Onset: 02/09/2015 Parkinson's disease Azalea Junior M.D. [...] 07/11/2017 Cardiac pacemaker in situ Matthew Lantigua, Kyle Jaime,FACP Onset: 07/15/2017 Chronic atrial fibrillation Young Mittal M.D., Active NARAYAN REYES Onset: 08/27/2017 Disorder of skin AND/OR Douglas Damon M.D. Active subcutaneous tissue Onset: 08/27/2017 Abnormal gait Douglas Damon M.D. Active Onset: 09/16/2017 Chest pain Young Mittal M.D., Active NARAYAN REYES Onset: 10/15/2017 Mixed hyperlipidemia Douglas Damon M.D. Active Onset: 08/03/2014 Atrial [...] 90tabs 1 by Douglas Besylate 2018 mouth Pachikara every day , MShane Acetaminophen ER 09/08/ Active Tablets 650mg 1 tab by Unknown 2018 ER mouth q4 hours as needed pain Magnesium-Oxide 07/22/ Active Tablets 400(241.3m 90tabs 1 by Matthew Swanson g) mg mouth Von Lantigua, every M.D.,FACP evening Fludrocortisone 04/08/ Active Tablets 0.1mg 30tabs Take One [place] Acetate 2017 Tablet By Thaddeusikara Hicks , M.D. Once Daily Atorvastatin 04/08/ Active Tablets 40mg 90tabs take one [place] Calcium 2017 tablet by Thaddeusikara hicks , M.D. once daily Metoprolol 11/20/ Active Tablets 50mg 60tabs take one I10 Douglas Tartrate 2017 tablet by Thaddeusikara hicks , M.D. twice a day Walker 09/09/ Active Misc 1units 4 wheels, Carlos 2017 brakes Barbadian, and TECHNICAL SERVICES ASSISTANT seat--for daily use Roller Walker 06/11/ Active Misc use daily G20 Azalea MGrant 2015 as selwyn Junior M.D. to prevent falls R29.6 Carbidopa-Levodopa 01/03/2014 Active Tablets 25-100mg 315tabs take 2 Douglas tabs 8am Pachikara, 1.5 tabs M.D. noon 2tabs 4pm 1.5 tabs 8pm Pain Relief 8 Hour Active Tablets ER 650mg 1 by Unknown mouth three times a day as needed for pain Omeprazole Active Capsules DR 20mg 60caps take one Douglas capsule Thaddeusikara, by mouth M.D. twice a day before meals Prednisolone Active Suspension 1% 1 drop 4 Unknown Acetate times/ day in Right eye Ketorolac Active Solution 0.5% Unknown Tromethamine Ofloxacin Active Solution 0.3% 2 gtta Unknown (Ophthalmic) Amlodipine Besylate 09/18/2017 Hx Tablets 2.5mg 90tabs 1 by Matthew Lantigua, 09/23/2017 every M.D.,FACP day Klor-Con M10 07/29/2017 Hx Tablets ER 10Meq 14tabs 1 by Douglas - mouth Nelson, 09/12/2017 every M.D. day Klor-Con M10 07/11/2017 Hx Tablets ER 10Meq 14tabs 1 by Matthew Lantigua, 07/22/2017 every M.D.,FACP day Amlodipine Besylate 06/16/2017 Hx Tablets 2.5mg 30tabs 1 by Matthew - mouth Von Williams, 06/16/2017 every M.D.,FACP day Eliquis 04/08/2017 Hx Tablets 2.5mg 60tabs 1 tablet Other - by mouth Ordering 04/22/2017 twice a Provider day. blood thinner. Carafate 02/24/2017 Hx Tablets 1gm 120tabs Take 1 Douglas - Tablet Pachikara, 05/21/2017 By Mouth M.D. At 6Am , 11Am, 5PM, And 9PM (pt not taking) Iron 01/27/2017 Hx Tablets 325(65Fe) 30tabs 1 by Chase Allen, - mg mouth TECHNICAL SERVICES ASSISTANT 04/22/2017 every day Hydrocodone-Acetami 12/25/2016 Hx Tablets 5-325mg 10tabs 1 tab M Douglas nophen - three 5 Pachikara, 10/15/2017 times a 1 M.D. day as . needed 1 pain 6 Amlodipine Besylate 12/11/2016 Hx Tablets 2.5mg 30tabs Take two [place] - TABLETs Pachikara, 05/21/2017 By Mouth M.D. Every Morning (no longer taking) Amlodipine Besylate 11/27/2016 Hx Tablets 5mg 30tabs 1 by [place] - mouth Pachikara, 12/11/2016 every M.D. day Proair Respiclick 11/20/2016 Hx Aerosol 108(90Bas 1units 2 puffs R [place] - e) 3 times 0 Pachikara, 2017 mcg/Act a day 5 M.D. with spacer Fluticasone 11/20/2016 Hx Suspension 50mcg/Act 9.900ml 2 sprays R Douglas Propionate - each 0 Pachikara, 12/25/2016 nostril 5 M.D. daily Doxycycline Hyclate 11/13/2016 Hx Capsules 100mg 20caps 1 cab J Douglas - twice a 2 Pachikara, 11/22/2016 day 0 M.D. . 9 Prednisone 11/13/2016 Hx Tablets 10mg 20tabs 4 J Douglas - [id number] 2 Pachikara, 11/22/2016 s 0 M.D. [id number] . ys,2tabx 9 2days,1t abxday. Losartan 11/12/2016 Hx Tablets 50-12.5mg 30tabs take one Douglas Potassium/Hydrochlo - tab Nelson, rothiazide 11/13/2016 daily M.D. Famotidine 11/07/2016 Hx Tablets 20mg 60tabs 1 tablet Douglas - twice Pachikara, 2017 daily M.D. Fludrocortisone 11/01/2016 Hx Tablets 0.1mg 30tabs 1 by Other Acetate - mouth Ordering 12/25/2016 every Provider day not taking Carafate 11/01/2016 Hx Tablets 1gm 120tabs 1 by Douglas - mouth at [facility], 2017 6am, M.D. 11am, 4pm and 9pm Omeprazole 11/01/[address] 20mg 60caps 1 by [place] - mouth [facility] 2017 twice a M.D. day before meals Hydrocodone-Acetami 08/01/2016 Hx Tablets 5-325mg 30tabs 1 by Douglas atkinsonhen - [facility], 08/07/2016 daily M.D. bedtime Acetaminophen 07/17/2016 Hx Capsules 500mg 180caps 2 tab by Harpal hicks 5 [facility] 11/05/2016 three 4 M.D. times a . day as 5 needed Clindamycin HCL 05/07/2016 Hx Capsules 150mg 9caps one Joey D. - capsule Brand, M.DGrant 05/13/2016 by mouth three times a day [...] Young Dunlap Succinate ER - 24HR mouth Kyrie, 03/05/2013 twice a M.D., [facility], day FASNC Metoprolol Tartrate 03/05/2013 Hx Tablets 100mg 180tabs 1/2 tab Andres Tavera - by mouth Von Lantigua, 11/20/2016 twice a M.D.,[facility] day 11/06/16 (pt taking 1 po bid s/p [facility] stay) Carbidopa/Levodopa 12/01/2012 Hx Tablets 25-100mg 165tabs take 1-1 Azalea M. - 1/2 cap Stackman, 01/03/2014 po 4 M.D. times daily as directed (1 2 - 1 1/2 - 1 2 - 1) Tikosyn 10/22/2012 Hx Capsules 250mcg 60caps 1 by Young Dunlap - aron Mittal, 10/26/2016 twice a M.D., [facility], day FASNC Jantoven 10/21/2012 Hx Tablets 2mg 90tabs as Young Mittal, 11/04/2016 M.D., [facility], [facility] Metoprolol Tartrate 08/28/2012 Hx Tablets 50mg 270tabs /2 tabs Young Dunlap - by mouth Kyrie, 03/05/2013 twice a M.D., [facility], day FASNC Furosemide 06/16/2012 Hx Tablets 20mg 30tabs 1 by Young Dunlap - mouth Kyrie, 11/05/2016 every M.D., [facility], morning FASNC Lisinopril 06/15/2012 Hx Tablets 5mg 30tabs 1 tab by Young Mittal, 08/02/2014 every M.D., [facility], day FASNC Hydrocodone/Acetami Hx Tablets 5-325mg 40tabs 1 tab po Unknown nophen - qid prn 08/02/2014 Vitamin D3 Hx Capsules 2000Unit 1 by Unknown - mouth 01/22/2016 every day Vitamin B-12 Hx Tablets 1000mcg 1 by Unknown - mouth 12/22/2015 every day Hydrocodone-Acetami Hx Tablets 5-325mg 60tabs 1 by Douglas kc - mouth Nelson, 07/25/2016 twice M.D. daily prn. Lisinopril Hx [...] 0.1 MG Technetium TC Administered Injection Joey D. 99M 013 Addison Bull Tetrofosmin, Per Unit Dose Up To 40 Millicuries Immunizations CPT Code Status Date Vaccine Reaction Lot # 18542 Given 05/21/2017 Influenza Virus Vaccine, [id number] Quadrivalent, Split, Preservative Free 58235 Given 05/21/2017 Pneumococcal Conjugate [id number] Vaccine 13 Valent For Intramuscular Use 55090 Given 08/07/2016 Zoster (Zostavax) no immediate reaction [id number] noted ... hh Vital Signs Date Vital Result Comment 12/10/2017 Height 59 inches 4'11" Weight 127.00 [...] Color Yellow Urine Appearance Clear Urine Specific [place] 1.013 1.010-1.030 Urine pH 6.0 5-9 Urine [...] Color Straw Urine Appearance Cloudy Urine Specific [place] 1.010 1.010-1.030 Urine pH 7.0 5-9 Urine [...] Color Yellow Urine Appearance Clear Urine Specific [place] 1.011 1.010-1.030 Urine pH 5.0 5-9 Urine [...] 130-159 High: 160-189 Very High: >189 6 [facility] Severe Sepsis and Septic Shock Management [...] [address]: Vish Clement MD Acct: [id number] Unit: [id number] AGE: 77 Location: ED Re06/15/17 SEX: F Status: REG ER SPEC: [id number] NATE: 06/16/[address]: Vish Clement MD REQ: [id number] RECD: 06/16/17 STATUS: INDIO TRACY DR: Douglas Damon MD _ SOURCE: URINE SPDESC: ORDERED: Urine Culture Procedure Result Reported Site Urine Culture Final 06/17/17- 0839 ML No growth of clinically significant organisms * ML - MAIN LAB ([facility]) . END OF REPORT * ML=Testing performed at Main Lab DEPARTMENT OF PATHOLOGY, [address] [place] [address] Enrrique Roberts M.D. Director [facility] # [id number] 11 Because ethnic data is not always [...] 5 Kidney failure <15 (or dialysis) 12 [facility] Severe Sepsis and Septic Shock Management [...] 5 Kidney failure <15 (or dialysis) 14 [facility] Severe Sepsis and Septic Shock Management [...] [address]: Barbi Goff MD Acct: [id number] Unit: [id number] AGE: 76 Location: [place] [address] Re10/24/16 SEX: F Status: ADM IN SPEC: [id number] NATE: 10/24/16-[address] [facility] [address]: Venkata Bearden MD REQ: [id number] RECD: 10/24/16721 STATUS: BLAKE TRACY DR: Dagoberto Damon MD [...] performed at Main Lab DEPARTMENT OF PATHOLOGY, [address] [place] [address] Enrrique Roberts M.D. Director [facility] # [id number] 22 [facility] Severe Sepsis and Septic Shock Management [...] 24 99th percentile=0.04 ng/mL Troponin results at [facility] and [facility] are not interchangeable. 25 SEE RESULT BELOW Name: HUMBERTO PHELAN Rosina : [address]: Singh Arvizu MD Acct: [id number] Unit: [id number] AGE: 76 Location: [place] [address] Re10/24/16 SEX: F Status: ADM IN SPEC: [id number] NATE: 10/23/16-[address] [facility] [address]: Aniceto Espinosa MD REQ: [id number] RECD: 10/23/16 STATUS: [facility] DR: Douglas Damon MD _ SOURCE: URINE [facility]: ORDERED: Urine Culture Procedure Result Reported Site Urine Culture Final 10/25/16- 08 ML Organism 1 PROTEUS MIRABILIS [place] Count 10-25,000 (Moderate) CFU/ML 1. PROTEUS MIRABILIS [...] any additional antibiotic reporting. * ML - [facility] ([facility]) . END OF REPORT * ML=Testing performed at Main Lab DEPARTMENT OF PATHOLOGY, [address] [place] [address] Enrrique Roberts M.D. Director [facility] # [id number] STANDING ORDER ENTERED 05/25/16 EXPIRES 11/12/16 [...] NELSON 33 ORDERED 06/27/16 EXPIRES 12/25/16 CC: [email or web address] 34 Because ethnic data is not always [...] [address]: Joey Bull MD Acct: [id number] Unit: [id number] AGE: 76 Location[facility] Re05/07/16 SEX: F Status: REG REF SPEC: [id number] NATE: 05/07/[address] [facility] [address]: Joey Bull MD REQ: [id number] RECD: 05/07/16 STATUS: SOUT _ ORDERED: LEVEL I FINAL DIAGNOSIS Pacemaker generator: Foreign body (pacemaker generator) (Gross diagnosis). PRE-OPERATIVE DIAGNOSIS Sick sinus syndrome, E.R.I. GROSS DESCRIPTION The specimen is received fresh with no source identified, and consists of a 4.7 x 4.5 x 0.6 cm silver metallic clinical medical assistant. The following inscription is identified: iNEWiT Sensia SEDR01 DDDR SN [id number] [facility]. Per established hospital medical staff protocol, no tissue is submitted. Gross only. Signed (signature on file) Anali Malone MD 1046 END OF REPORT * ML=Testing performed at Main Lab DEPARTMENT OF PATHOLOGY, [address] [place] [address] Enrrique Roberts M.D. Director [facility] # [id number] 38 Because ethnic data is not always [...] range effective 13. 49 @Sample frozen by [email or web address] at 1056 on 07/22/13. 50 Test Performed by: [address] [address] Clerical Investigator: Carmine Loomis III, M.D. 51 Please note [...] by the World Health Organization (WHO) in 1983 as a standardized system of reporting PT [...] Procedures Date CPT Code Description Status Comment 09/16/2017 38822 EKG Tracing & Completed Interpretation 09/08/2017 24720 Treadmill Interp/Report Only Completed 09/08/2017 44234 Stress Test Supervsn W/Out Completed I/R 08/20/2017 Diabetic Retinal Eye Exam Completed Document: 08/20/17 - Consult Ophthalmology - [facility] 07/11/2017 24670 Holter Monitor Review (24 Completed hr)dr review & interp only 07/08/2017 85831 ECG Monitor/Recording Completed W/Visual Superimposition Scanning 06/30/2017 Diabetic Retinal Eye Exam Completed Document: 06/30/17 - Consult Ophthalmology - [facility] 05/05/2017 15078 EKG Tracing & Completed Interpretation 03/27/2017 81130 EKG, Interpretation Only Completed 03/14/2017 92036 Interrogation Device Eval In Completed Person W/DR Analysis,Single,Dual,Mul 03/12/2017 82256 EEG Recording Awake & Completed Drowsy 03/12/2017 90299 ECHO Transthorasic Realtime Completed 2D W Doppler & Color Flow Hosp 12/02/2016 18898 Pace Maker Eval W/Iterative Completed Adjment Dual Lead 11/20/2016 75152 Inhalation [place] For Acute Completed Airway Obstruction W/Nebulizer/Inhaler 11/06/2016 92071 EKG Tracing & Completed Interpretation 10/28/2016 78513 Treadmill Interp/Report Only Completed 10/28/2016 67251 Stress Test Supervsn W/Out Completed I/R 10/27/2016 30310 EKG, Interpretation Only Completed 10/23/2016 56558 ECHO Transthorasic Realtime Completed 2D W Doppler & Color Flow Hosp 06/04/2016 19450 Pace Maker Eval W/Iterative Completed Adjment Dual Lead 05/07/2016 21558 Removal With Replacement Dual Completed Lead System Pulse Generator 05/01/2016 97473 Interrogation Device Eval In Completed Person W/DR Analysis,Single,Dual,Mul 04/19/2016 74681 Pace Maker Eval W/Iterative Completed Adjment Dual Lead 02/21/2016 43011 EKG Tracing & Completed Interpretation 02/09/2016 46710 Interrogation Device Eval In Completed Person W/DR Analysis,Single,Dual,Mul 11/09/2015 51662 Interrogation Device Eval In Completed Person W/DR Analysis,Single,Dual,Mul 08/16/2015 50399 Pace Maker Eval W/Iterative Completed Adjment Dual Lead 03/14/2015 06334 EKG Tracing & Completed Interpretation 03/08/2015 77353 Interrogation Device Eval In Completed Person W/DR Analysis,Single,Dual,Mul 12/27/2014 63121 Interrogation Device Eval In Completed Person W/DR Analysis,Single,Dual,Mul 08/03/2014 44208 EKG Tracing & Completed Interpretation 06/08/2014 56159 Pace Maker Eval W/Iterative Completed Adjment Dual Lead 11/18/2013 92230 Pace Maker Eval W/Iterative Completed Adjment Dual Lead 09/08/2013 Mammogram Completed 05/25/2013 33791 Cardiac Event Monitor Completed 04/23/2013 18494 EKG Tracing & Completed Interpretation 04/22/2013 17723 Pace Maker Eval W/Iterative Completed Adjment Dual Lead 11/09/2012 20026 Pace Maker Eval W/Iterative Completed Adjment Dual Lead 11/06/2012 70700 Stress Test Completed 11/06/2012 07096 Myocardial Perfusion Imaging Completed Tomographic (Spect) Multiple Studies 08/28/2012 48141 EKG Tracing & Completed Interpretation 08/26/2012 34671 Pace Maker Eval W/Iterative Completed Adjment Dual Lead Encounters Type Date Location Provider CPT E/M Dx Office Visit 10/15/2017 10:00a [facility] Internal Medicine Douglas Damon, 32535 I10 - Christine Jaime R26.81 I48.2 E78.2 M25.511 Office Visit 09/16/2017 1:45p [facility] Young Mittal, 78874 R07.89 Christin Jaime, FAC, [facility] Office Visit 09/12/2017 2:40p [facility] [place] [address] I10 Christine R94.5 R07.89 Office Visit 09/08/2017 8:13a [facility] Vannessa De La Paz, 18795 R07.9 Assoc,pc TECHNICAL SERVICES ASSISTANT Hospitalists G20 I48.91 Z86.73 Office Visit 09/07/2017 8:13[place], [address] R07.9 Assoc,pc Hospitalists Addison G20 I48.91 Z86.73 Office Visit 08/27/2017 9:40a [facility] Internal Medicine Douglas Damon, 70972 L98.9 - Christine Jaime R26.81 Office Visit 07/18/2017 1:40p [facility] Internal Douglas Damon, 49510 Z01.818 Medicine - [address] M.DGrant I10 I48.2 G20 Office Visit 07/15/2017 2:45p [facility] Mittal, 27361 I48.2 Christin Jaime, [facility], [facility] H26.9 Z01.810 Office Visit 07/15/2017 3:00p [facility] Azalea RowanGrant Junior, 99821 G20 Services Of Christin Jaime I48.0 I69.354 Office Visit 07/02/2017 11:40a [facility] Internal Medicine Douglas Damon, 74661 R26.9 - Christine Jaime Office Visit 06/18/2017 11:20a [facility] Internal Medicine Douglas Damon, 88469 G45.9 - Christine Jaime R42 R29.6 Office Visit 05/21/2017 8:40a [facility] Internal Medicine Douglas Damon M.D. 29630 I10 - [place] I63.9 I95.2 Z23 Office Visit 05/05/2017 9:45a [facility] Young Mittal, 13085 I48.0 Christin Jaime, [facility], [facility] Office Visit 04/22/2017 2:00p [facility] Internal Medicine - Douglas Damon, 38601 I48.0 [place] Mauricio M.Von I10 I63.9 R07.89 R29.6 Office Visit 03/21/2017 4:50p [facility] Shirley Friedman, 89908 I63.9 M.DGrant I48.91 Office Visit 03/20/2017 4:23p [facility] Barbi Goff, 53660 I63.20 Assoc, Hospitalists M.Von I10 G20 I95.1 Office Visit 03/19/2017 4:23p [facility] Barbi Goff, 68608 I63.20 Assoc, Hospitalists M.DGrant I10 G20 I95.1 Office Visit 03/17/2017 4:22p [facility] Brabi Goff, 25564 I63.20 Assoc,pc Hospitalists M.DGrant I10 G20 I95.1 Office Visit 03/16/2017 3:43p [facility] Barbi Shell, 11612 I63.40 Assoc,pc Hospitalists M.DGrant I48.0 I95.1 Office Visit 03/15/2017 3:43p [facility] Barbi Dhillonhn, 42942 I63.40 Assoc,pc Hospitalists M.Von I48.0 I95.1 Office Visit 03/14/2017 9:06a [facility] [address] R55 [facility] I63.9 Z95.0 I49.5 Office Visit 03/14/2017 3:42p [facility] Barbi Shell, 01101 I63.40 Assoc, Hospitalists MShane I48.0 I95.1 I47.2 Office Visit 03/13/2017 3:42p [facility] Barbi Shell, 55966 I63.40 Assoc, Hospitalists M.DGrant I48.0 I95.0 G20 Office Visit 03/13/2017 2:31p [facility] Steve Baker, 36702 I63.40 M.DGrant I10 I48.91 Office Visit 03/12/2017 2:31p [facility] Steve Baker, 96600 I63.40 M.DGrant I10 I48.91 R55 Office Visit 03/12/2017 3:41p [facility], [place] [address] I63.40 Hospitalists I48.0 G20 I95.1 Office Visit 02/20/2017 11:45a [facility] Azalea Junior, 24870 G20 Services Of [facility] Addison I95.1 Office Visit 02/03/2017 1:00p [facility] Mittal, 57883 I48.0 Christin Jaime, FAC, FASKS Office Visit 2017 9:20a [facility] Internal Medicine - Douglas Damon, 58318 M51.16 Christine Jaime I48.0 Office Visit 12/25/2016 10:40a [facility] Internal Douglas Damon, 18564 K29.61 [facility] - Christine Jaime M51.16 I48.0 I12.9 N18.9 Office Visit 11/22/2016 10:00a [facility] Internal Medicine Douglas Damon M.D. 31919 R05 - [address] Office Visit 11/20/2016 8:20a [facility] Internal Medicine Douglas Damon M.D. 85291 R05 - [place] D64.9 I10 Office Visit 11/13/2016 9:20a [facility] Internal Medicine Douglas Damon M.D. 14504 I10 - [place] I95.1 I48.0 K25.0 J20.9 Office Visit 11/13/2016 11:15a [facility] Azalea Junior, 24497 I95.1 Services Of Christin Jaime G20 Office Visit 11/06/2016 10:15a [facility] Young Mittal M.D., 40385 I48.0 FACC, FASNC I49.5 Z95.0 I47.2 R94.31 Office Visit 11/01/2016 1:21p [facility] Vannessa De La Paz, 48101 K92.2 Assoc, TECHNICAL SERVICES ASSISTANT Hospitalists R55 D64.9 G20 Office Visit 10/31/2016 1:20p [facility] Vannessa De La Paz, 00695 K92.2 Assoc, TECHNICAL SERVICES ASSISTANT Hospitalists R55 D64.9 G20 Office Visit 10/30/2016 1:19p [facility] Vannessa De La Paz, 52450 K92.2 Assoc,pc TECHNICAL SERVICES ASSISTANT Hospitalists R55 D64.9 G20 Office Visit 10/30/2016 2:53p [facility] [address] I95.1 G20 Office Visit 10/29/2016 1:19p [facility],[place] [address] K92.2 Hospitalists D64.9 G20 R55 Office Visit 10/29/2016 2:52p [facility] [address] I95.1 G20 Office Visit 10/28/2016 10:07a [facility], Edda Marie, TECHNICAL SERVICES ASSISTANT 28507 K92.2 Hospitalists D64.9 G20 R55 Office Visit 10/27/2016 10:06a [facility], Edda Marie, TECHNICAL SERVICES ASSISTANT 35782 K92.2 Hospitalists D64.9 G20 R55 Office Visit 10/27/2016 1:52p [facility] Gustavo Izquierdo M.D. 13225 I47.2 R55 Office Visit 10/26/2016 1:53p [facility] Gustavo Izquierdo M.D. 56708 R55 I48.0 I47.2 Office Visit 10/26/2016 10:06a [facility], Edda Marie, TECHNICAL SERVICES ASSISTANT 99734 K92.2 Hospitalists D64.9 G20 R55 Office Visit 10/25/2016 10:05a [facility], Edda Marie, TECHNICAL SERVICES ASSISTANT 84147 K92.2 Hospitalists D64.9 G20 R55 Office Visit 10/24/2016 10:05a [facility], Edda Marie, TECHNICAL SERVICES ASSISTANT 46591 K92.2 Hospitalists D64.9 G20 Office Visit 10/23/2016 10:04a [facility], Dafne Lord N.P. 42589 K92.2 Hospitalists D64.9 G20 Office Visit 09/23/2016 3:00p [facility] Internal Medicine - Chase Allen, MATTHIEU 69983 I10 Christine S09.90xA Office Visit 08/22/2016 1:45p [facility] Azalea Junior, 37902 G20 Services Of Christin Jaime G25.81 G43.009 M25.532 R29.6 Office Visit 08/07/2016 9:40a [facility] Internal Medicine Douglas Damon, 33510 M54.5 - Christine Jaime I25.9 Z23 Office Visit 07/24/2016 4:40p [facility] Internal Medicine Douglas Damon, 78969 M17.0 - Christine Jaime Office Visit 07/17/2016 10:00a [facility] Internal Medicine Douglas Damon, 71949 M54.5 - [place] M.D. G20 I48.0 Office Visit 06/21/2016 9:30a [facility] Azalea Junior, 62748 G20 Services Of Terrazzo Grinder M.D. G25.81 M54.5 M79.661 S80.811S Office Visit 05/01/2016 11:00a [facility] Joey Bull, 38126 I49.5 Terrazzo Grinder M.D. Z95.0 Office Visit 04/09/2016 10:15a [facility] Azalea Junior, 09120 G20 Services Of Terrazzo Grinder M.D. G25.81 R40.0 Office Visit 02/21/2016 9:15a [facility] [place] Mittal, 32376 I48.0 Terrazzo Grinder M.Deshaun., FAC, [facility] Office Visit 10/19/2015 10:45a [facility] Azalea Junior, 20105 G20 Services Of Terrazzo Grinder M.D. G25.81 Office Visit 06/15/2015 10:15a [facility] Azalea Junior, 58312 G20 Services Of Terrazzo Grinder M.D. G25.81 R42 Office Visit 03/14/2015 1:45p [facility], 43494 427.31 Terrazzo Grinder Harpal.Deshaun., FAC, [facility] Office Visit 02/09/2015 9:45a [facility] Azalea Junior, 93511 332.0 Services Of Terrazzo Grinder M.D. 333.94 783.21 Office Visit 10/13/2014 10:15a [facility] Azalea Junior, 83813 332.0 Services Of Terrazzo Grinder M.D. 333.94 Office Visit 08/03/2014 1:45p [facility] Young Germán Mittal, 84316 427.31 M.Von, FAC, [facility] Office Visit 06/28/2014 9:45a [facility] Azalea Junior, 53806 332.0 Services Of Terrazzo Grinder M.D. 333.94 Office Visit 08/26/2013 1:15p [facility] Azalea Junior, 90111 332.0 Services Of Terrazzo Grinder M.D. 333.94 729.1 Office Visit 07/12/2013 11:45a [facility], [id number] 785.1 Christin Jaime, FACC, FASKS Office Visit 07/09/2013 9:30a [facility], [id number] 332.0 Services Of Terrazzo Grinder M.D. Office Visit 04/23/2013 9:45a [facility], [id number] 427.81 Terrazzo Grinder Harpal.Von, FACC, FASKS Office Visit 03/12/2013 11:00a [facility], 34456 332.0 Services Of Terrazzo Grinder M.D. Office Visit 12/08/2012 11:30a [facility], 86822 332.0 Services Of Terrazzo Grinder M.D. Office Visit 11/16/2012 8:45a [facility], [id number] 414.9 Terrazzo Grinder Addison, FACC, FASKS Office Visit 10/12/2012 11:15a [facility], 27986 427.31 Terrazzo Grinder Addison, FACC, [facility] Office Visit 08/28/2012 8:15a [facility], 74532 414.9 Christin Jaime, [facility], [facility] 427.31 Office Visit 05/29/2012 3:00p [facility], [id number] 332.0 Services Of Terrazzo Grinder M.DGrant Office Visit 09/09/2006 3:30p [facility] Dao Ceballos, 35767 721.0 Of Terrazzo Grinder Addison 721.3 Plan of Care Future Appointment(s):02/11/2018 11:20 am - Douglas Damon M.D. at [facility]12/22/2017 9:30 am - Aamir Ross M.D. at [facility]12/10/2017 - Douglas Damon M.D.I10 Essential (primary) hypertensionComments:Blood pressure controlled. Keep monitoring blood pressure. Call if it is consistently more than 130/85. Avoid extra salt in your diet.I48.2 Chronic atrial [id number] Pain in right shoulderComments:Start physical therapy
[2017-12-24 16:51] LABS: EGFR Non-African American 55.4 (>60)
--- NOTE | 2017-12-24 17:14 | RAD ---
INDICATION: Dizziness and weakness COMPARISON: Most recent CT of the brain is dated June 15, 2017 TECHNIQUE: Contiguous axial sections of the brain were obtained from the skull base to the vertex without contrast. FINDINGS: The ventricles, cisterns and sulci exhibit symmetrical involutional changes unchanged from the prior CT of the brain.. There is a large area of encephalomalacia involving the right temporal and parietal lobes unchanged from the prior CT exam. Elsewhere there is mild periventricular and subcortical white matter hypoattenuation consistent with chronic microvascular disease. Otherwise the baez-white matter differentiation is adequately maintained and there is no sulcal effacement. No significant focal abnormality or mass effect is present. There is no evidence for intracranial hemorrhage. No significant focal osseous abnormality is present. The visualized portion of the paranasal sinuses appear clear. The mastoid air cells are well aerated bilaterally. IMPRESSION: Chronic findings described above without CT apparent acute intracranial abnormality.
[2017-12-24 17:26] LABS: Urine Appearance Clear; Urine Blood 1+ (Negative); Urine Color Yellow; Urine Ketones Negative (Negative); Urine Protein Negative (Negative); Urine Specific Gravity 1.008 (1.010-1.030); Urine Urobilinogen Negative (Negative)
[2017-12-24] MEDS ORDERED: Aspirin TAB* 325 MG PO ONE (18:21)
[2017-12-24] MEDS ORDERED: hydrALAZINE IV* 20 MG/ML VIAL IV SLOW PU PRN (19:11)
[2017-12-24] MEDS ORDERED: hydrALAZINE IV* 20 MG/ML VIAL ONE (19:19)
[2017-12-24] MEDS ORDERED: HYDROcodone/ACETAMIN 5-325 MG* 1 TAB PO PRN (19:40)
[2017-12-24] MEDS: Metoprolol Tartrate TAB* 50 mg PO SCH (21:11)
[2017-12-24] MEDS: Carbidopa/Levodop 25/100 MG TAB(*) PO SCH (21:12)
[2017-12-24] MEDS: Heparin VIAL(*) 5000 UNITS/ML VIAL (FIVE THOUSAND) SUBCUT SCH (21:12)
--- NOTE | 2017-12-24 22:03 | ED ---
Moustapha Hernandes Thomas, scribed for Aniceto Espinosa MD on 12/24/17 at 1640 . Complex/Multi-Sys Presentation - HPI Summary HPI Summary: The patient is a 77 year old female referred to the ED by her roller staker Dr. Mittal. She notes that earlier today, when she was speaking with a cable digital media representative when I felt like someone punched my chest. She suspects that her ICD went off. She complains of tingling to her left arm, dizziness, a mild headache, weakness, and fatigue. - History Of Current Complaint Chief Complaint: EDChestPainROMI Time Seen by Provider: 12/24/17 15:47 Hx Obtained From: Patient Onset/Duration: Lasting Hours, Still Present Timing: Constant Severity Currently: Moderate Aggravating Factor(s): None Alleviating Factor(s): None Associated Signs And Symptoms: Positive: Other - CP, tingling, dizziness, headache, weakness, fatigue - Allergies/Home Medications Allergies/Adverse Reactions: Allergies Allergy/AdvReac Type Severity Reaction Status Date / Time dofetilide [From Tikosyn] Allergy Unknown Verified 12/24/17 15:49 Reaction Details Penicillins Allergy Hives Verified 12/24/17 15:49 crystal light Allergy Airway Uncoded 04/17/17 16:50 Obstruction Home Medications: Home Medications Acetaminophen TAB* [Tylenol TAB*] 650 mg PO Q4H PRN 12/24/17 [History Confirmed 12/24/17] Atorvastatin* [Lipitor*] 40 mg PO DAILY 12/24/17 [History Confirmed 12/24/17] Carbidopa/Levodop 25/100 MG(*) [Sinemet 25/100 TAB(*)] 1 tab PO DAILY@1600 12/24 [History Confirmed 12/24/17] Carbidopa/Levodop 25/100 MG(*) [Sinemet 25/100 TAB(*)] 1.5 tab PO DAILY@1200 05/05 [History Confirmed 12/24/17] Carbidopa/Levodop 25/100 MG(*) [Sinemet 25/100 TAB(*)] 2 tab PO DAILY@0800 12/24 [History Confirmed 12/24/17] Carbidopa/Levodop 25/100 MG(*) [Sinemet 25/100 TAB(*)] 2 tab PO DAILY@12/24 [History Confirmed 12/24/17] Fludrocortisone Acetate TAB* [Florinef TAB*] 0.1 mg PO DAILY 12/24/17 [History Confirmed 12/24/17] HYDROcodone/ACETAMIN 5-325 MG* [[place] 5-325 TAB*] 1 tab PO TID PRN 12/24/17 [ History Confirmed 12/24/17] Magnesium Oxide TAB* [MagOx 400 TAB*] 400 mg PO QPM 12/24/17 [History Confirmed 12/24/17] Metoprolol Tartrate TAB* [Lopressor TAB*] 50 mg PO BID 12/24/17 [History Confirmed 12/24/17] Omeprazole CAP* [Prilosec CAP* 20 MG] 20 mg PO BID AC 12/24/17 [History Confirmed 12/24/17] PMH/Surg Hx/FS Hx/Imm Hx Endocrine/Hematology History: Reports: Hx Blood Transfusions - current visit, Hx Anemia - current Denies: Hx Diabetes, Hx Thyroid Disease Cardiovascular History: Reports: Hx Hypertension, Hx Pacemaker/ICD, Hx Syncope Denies: Hx Angina, Hx Coronary Artery Disease, Hx Hypercholesterolemia, Hx Myocardial Infarction, Hx Peripheral Vascular Disease Respiratory History: Denies: Hx Asthma, Hx Chronic Obstructive Pulmonary Disease (COPD), Other Respiratory Problems/Disorders GI History: Reports: Hx Gastroesophageal Reflux Disease - HISTORY OF, Hx Ulcer - OCTOBER 2016 Musculoskeletal History: Reports: Hx Arthritis, Hx Rheumatoid Arthritis, Hx Back Problems Denies: Hx Osteoporosis Sensory History: Reports: Hx Contacts or Glasses Denies: Hx Hearing Aid Opthamlomology History: Reports: Hx Contacts or Glasses Neurological History: Reports: Hx Migraine, Hx Transient Ischemic Attacks (TIA) , Other Neuro Impairments/Disorders - HISTORY OF PARKINSONS Denies: Hx Headaches, Hx Seizures - Cancer History Cancer Type, 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 - Surgical History Surgery Procedure, Year, and Place: skin, hysterectomy- one ovary; appe; pacemaker; heart scraped after infection Hx Anesthesia Reactions: No - Immunization History Date of Tetanus Vaccine: UTD Date of Influenza Vaccine: 2015 Infectious Disease History: No Infectious Disease History: Denies: Hx Clostridium Difficile, Hx Hepatitis, Hx Human Immunodeficiency Virus (HIV), Hx of Known/Suspected MRSA, Hx Shingles, Hx Tuberculosis, Hx Known/ Suspected VRE, Hx Known/Suspected VRSA, History Other Infectious Disease, Traveled Outside the [place] in Last 30 Days - Family History Known Family History: Positive: Cardiac Disease, Hypertension, Other - CA - Social History Alcohol Use: Rare Hx Substance Use: No Substance Use Type: Reports: None Hx Tobacco Use: No Smoking Status (MU): Never Smoked Tobacco Review of Systems Positive: Fatigue. Negative: Fever Positive: Chest Pain Neurological: Other - Tingling, dizziness Positive: Headache, Weakness All Other Systems Reviewed And Are Negative: Yes Physical Exam - Summary Physical Exam Summary: Appearance: The patient is well-nourished in no acute distress and in no acute pain. Skin: The skin is warm and dry and skin color reflects adequate perfusion. HEENT: The head is normocephalic and atraumatic. The pupils are equal and reactive. The conjunctivae are clear and without drainage. Nares are patent and without drainage. Mouth reveals moist mucous membranes and the throat is without erythema and exudate. The external ears are intact. The ear canals are patent and without drainage. The tympanic membranes are intact. Neck: the neck is supple with full range of motion and non-tender. There are no carotid bruits. There is no neck vein distension. Respiratory: Chest is non-tender. Lungs are clear to auscultation and breath sounds are symmetrical and equal. Cardiovascular: Heart is regular rate. Irregularly irregular rhythm. There is no murmur or rub auscultated. There is no peripheral edema and pulses are symmetrical and equal. Abdomen: The abdomen is soft and non-tender. There are normal bowel sounds heard in all four quadrants and there is no organomegaly palpated. Musculoskeletal: There is no back tenderness noted. Extremities are non-tender with full range of motion. There is good capillary refill. There is no peripheral edema or calf tenderness elicited. Neurological: Patient is alert and oriented to person, place and time. The patient has symmetrical motor strength in all four extremities. Cranial nerves are grossly intact. Deep tendon reflexes are symmetrical and equal in all four extremities. Psychiatric: The patient has an appropriate affect and does not exhibit any anxiety or depression. Triage Information Reviewed: Yes Vital Signs On Initial Exam: Initial Vitals Temp Pulse Resp BP Pulse Ox 99.1 F 90 17 127/84 96 12/24/17 15:44 12/24/17 15:44 12/24/17 15:44 12/24/17 15:44 12/24/17 15:44 Vital Signs Reviewed: Yes Diagnostics - Vital Signs Vital Signs Temp Pulse Resp BP Pulse Ox 12/24/17 16:04 92 22 148/91 97 12/24/17 16:02 7 12/24/17 15:47 79 21 96 12/24/17 15:44 99.1 F 90 17 127/84 96 - Laboratory Lab Results: Lab Results 12/24/17 12/24/17 12/24/17 Range/Units 16:29 16:29 16:29 WBC 7.7 (3.5-10.8) 10^3/ul RBC 3.81 L (4.0-5.4) 10^6/ul Hgb 12.0 (12.0-16.0) g/dl Hct 36 (35-47) % MCV 94 (80-97) fL MCH 32 H (27-31) pg MCHC 34 (31-36) g/dl RDW 16 H (10.5-15) % Plt Count 224 (150-450) 10^3/ul MPV 8.0 (7.4-10.4) um3 Neut % (Auto) 71.7 (38-83) % Lymph % (Auto) 18.4 L (25-47) % [place] % (Auto) 7.7 H (0-7) % Eos % (Auto) 1.1 (0-6) % Baso % (Auto) 1.1 (0-2) % Absolute Neuts (auto) 5.5 (1.5-7.7) 10^3/ul Absolute Lymphs (auto) 1.4 (1.0-4.8) 10^3/ul Absolute Monos (auto) 0.6 (0-0.8) 10^3/ul Absolute Eos (auto) 0.1 (0-0.6) 10^3/ul Absolute Basos (auto) 0.1 (0-0.2) 10^3/ul Absolute Nucleated RBC 0 10^3/ul Nucleated RBC % 0 INR (Anticoag Therapy) (0.77-1.02) Sodium 139 (139-145) mmol/L Potassium 3.6 (3.5-5.0) mmol/L Chloride 102 (101-111) mmol/L Carbon Dioxide 26 (22-32) mmol/L Anion Gap 11 (2-11) mmol/L BUN 23 (6-24) mg/dL Creatinine 0.97 H (0.51-0.95) mg/dL Est GFR ( Amer) 71.2 (>60) Est GFR (Non-Af Amer) 55.4 (>60) BUN/Creatinine Ratio 23.7 H (8-20) Glucose 110 H (70-100) mg/dL Lactic Acid 1.3 (0.5-2.0) mmol/L Calcium 9.5 (8.6-10.3) mg/dL Total Bilirubin 0.70 (0.2-1.0) mg/dL AST 19 (13-39) U/L ALT 12 (7-52) U/L Alkaline Phosphatase 123 H (34-104) U/L Troponin I 0.00 (<0.04) ng/mL Total Protein 7.3 (6.4-8.9) g/dL Albumin 4.4 (3.2-5.2) g/dL Globulin 2.9 (2-4) g/dL Albumin/Globulin Ratio 1.5 (1-3) Urine Color Urine Appearance Urine pH (5-9) Ur Specific [place] (1.010-1.030) Urine Protein (Negative) Urine Ketones (Negative) Urine Blood (Negative) Urine Nitrate (Negative) Urine Bilirubin (Negative) Urine Urobilinogen (Negative) Ur Leukocyte Esterase (Negative) Urine WBC (Auto) (Absent) Urine RBC (Auto) (Absent) Ur Squamous Epith Cells (Absent) Urine Bacteria (Absent) Urine Glucose (Negative) 12/24/17 12/24/17 Range/Units 16:29 17:01 WBC (3.5-10.8) 10^3/ul RBC (4.0-5.4) 10^6/ul Hgb (12.0-16.0) g/dl Hct (35-47) % MCV (80-97) fL MCH (27-31) pg MCHC (31-36) g/dl RDW (10.5-15) % Plt Count (150-450) 10^3/ul MPV (7.4-10.4) um3 Neut % (Auto) (38-83) % Lymph % (Auto) (25-47) % [place] % (Auto) (0-7) % Eos % (Auto) (0-6) % Baso % (Auto) (0-2) % Absolute Neuts (auto) (1.5-7.7) 10^3/ul Absolute Lymphs (auto) (1.0-4.8) 10^3/ul Absolute Monos (auto) (0-0.8) 10^3/ul Absolute Eos (auto) (0-0.6) 10^3/ul Absolute Basos (auto) (0-0.2) 10^3/ul Absolute Nucleated RBC 10^3/ul Nucleated RBC % INR (Anticoag Therapy) 0.90 (0.77-1.02) Sodium (139-145) mmol/L Potassium (3.5-5.0) mmol/L Chloride (101-111) mmol/L Carbon Dioxide (22-32) mmol/L Anion Gap (2-11) mmol/L BUN (6-24) mg/dL Creatinine (0.51-0.95) mg/dL Est GFR ( Amer) (>60) Est GFR (Non-Af Amer) (>60) BUN/Creatinine Ratio (8-20) Glucose (70-100) mg/dL Lactic Acid (0.5-2.0) mmol/L Calcium (8.6-10.3) mg/dL Total Bilirubin (0.2-1.0) mg/dL AST (13-39) U/L ALT (7-52) U/L Alkaline Phosphatase (34-104) U/L Troponin I (<0.04) ng/mL Total Protein (6.4-8.9) g/dL Albumin (3.2-5.2) g/dL Globulin (2-4) g/dL Albumin/Globulin Ratio (1-3) Urine Color Yellow Urine Appearance Clear Urine pH 7.0 (5-9) Ur Specific [place] 1.008 L (1.010-1.030) Urine Protein Negative (Negative) Urine Ketones Negative (Negative) Urine Blood 1+ A (Negative) Urine Nitrate Negative (Negative) Urine Bilirubin Negative (Negative) Urine Urobilinogen Negative (Negative) Ur Leukocyte Esterase Negative (Negative) Urine WBC (Auto) Trace(0-5/hpf) (Absent) Urine RBC (Auto) Trace(0-2/hpf) (Absent) Ur Squamous Epith Cells Present A (Absent) Urine Bacteria Absent (Absent) Urine Glucose Negative (Negative) Result Diagrams: 12/24/17 16:29 12/24/17 16:29 Lab Statement: Any lab studies that have been ordered have been reviewed, and results considered in the medical decision making process. - CT CT Brain CT Interpretation: No Acute Changes - IMPRESSION: Chronic findings described above without CT apparent acute intracranial abnormality. Dr. Espinosa has reviewed this report. CT Interpretation Completed By: Radiologist - EKG 16:29 Cardiac Rate: NL EKG Rhythm: Atrial Fibrillation - at 69 BPM EKG Interpretation: Left axis deviation. Ventricular paced escape beats. Complex Multi-Symp Course/Dx Course Of Treatment: Ms. Phelan had some left arm parasthesias today. She has longstanding a-fib and has not been anticoagulated secondary to a GI bleed. She had a recent CVA. Her initial W.U was negative and Dr. Baker saw her and recomended admission. - Diagnoses Provider Diagnoses: TIA (transient ischemic attack), Afib - Physician Notifications Discussed Care Of Patient With: Steve Baker Time Discussed With Above Provider: 18:31 Instructed by Provider To: Other - Dr. Baker, neurology, recommends admission and aspirin. Dr. Barger will [place] [facility] Discharge - Sign-Out/Discharge Documenting (check all that apply): Discharge/Admit/Transfer - Patient is admitted. - Discharge Plan Condition: Stable Disposition: ADMITTED TO [facility] - Billing Disposition and Condition Condition: STABLE Disposition: [facility] The documentation as recorded by the Moustapha lr Thomas accurately reflects the service I personally performed and the decisions made by Jesús richardson Richard L, MD.
--- NOTE | 2017-12-25 05:34 | CONS ---
CC: Dr. Damon; Dr. Mittal NEUROLOGY CONSULTATION: DATE OF CONSULT: 12/24/17 REFERRING PHYSICIAN: Dr. Espinosa. LOCATION: She is in the emergency room to be admitted. REASON FOR CONSULT: Left arm numbness. HISTORY OF PRESENT ILLNESS: Liudmila Phelan is a 77-year-old right-handed woman with a history of chroni c atrial fibrillation who is not on anticoagulation because of gastrointestinal bleeding in the past. She woke up this morning with numbness and tingling of her left hand and arm. She did not think to o much of it and she walked around her yard and had no difficulty walking anymore she normally does. The numbness in her left arm persisted and so, she ended up calling I believe, Dr. Nelson barnard nd then Dr. Mittal, who both recommended she be evaluated in the emergency room. She came in [facility]. She still has extensive numbness and tingling in the left hand, but she does not feel that it is weak. There is no numbness and tingling of her face or change in speech. She has some chronic numb ness in her feet which is unchanged. Other than the numbness, she has not noticed any new symptoms. She has chronic atrial fibrillation and was anticoagulated in the past, but had gastrointestinal blee ding. That was stopped. She does not take aspirin either. 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 MEDICATIONS: At home consist of: 1. Omeprazole 20 mg p.o. b.i.d. 2. Sinemet 25/100, 1.5 tablets 3 times per day. 3. Metoprolol 50 mg p.o. b.i.d. 4. Florinef 0.1 mg p.o. daily. 5. Atorvastatin 40 mg p.o. daily. 6. Eye drops. REVIEW OF SYSTEMS: Negative for recent gastrointestinal pain or heartburn, no nausea or vomiting, no headaches, no change in vision. Weight has been stable. She uses a walker all the time when she wal ks. She has not had any falls. She gets lightheaded when she stands up at times, but no faints. No recent fevers or chills. No change in bladder function. She has chronic left visual field deficit which is unchanged. PHYSICAL EXAM: She is thin, but well hydrated. Her blood pressure most recently 162/102, was 148/91 prior to that. Heart rate is running in the 80s and is irregularly irregular, respiratory rate 17 a nd oxygen saturation is 96% on room air. Temperature is 99.1 by temporal scan. Lungs are clear. He art is in an irregular rhythm, but I do not hear murmurs. There are no cervical bruits. Oral mucosa is moist and atraumatic. Neurologic Exam: Eye movements are full. Pupils react equally from 3 to 2 mm. Funduscopic exam reve als arteriolar tortuosity. She has a dense left homonymous hemianopia. Facial sensation to light to uch is symmetric. Facial musculature looks symmetric as well. Palate and tongue appear normal, tong ue protrudes in the midline, there is no dysarthria. She is a little hard of hearing. Motor exam reveals a spastic catch in both arms. She has a mild pronator drift at both sides. 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 She has fairly good strength proximally and distally in the low er extremities. Finger taps are slow bilaterally, worse on the left. Reflexes are very brisk in all limbs. Right plantar is flexor and left is extensor. Language is fluent. She is alert and oriente d to person, place and time. She seems to have a good memory. DIAGNOSTIC STUDIES/LAB DATA: Laboratory data includes a INR today of 0.90, chemistry profile notable for a creatinine of 0.97 and a glucose of 110. Alkaline phosphatase is a little bit elevated at 123 . CBC is unremarkable. Urinalysis today is unremarkable. CT of the brain is reviewed and reveals a n old right hemispheric infarction. This is fairly large. IMPRESSION: Possible new cardioembolic infarction. She does have some sensory deficits as well as p robable old chronic deficits. I think we again need to revisit the possibility of anticoagulation if she has not had GI bleeding for over a year. When I last saw her in February when she had the stroke, jason osborne I and Dr. Sequeira of Cardiology recommended that she be anticoagulated. I would recommend giving h er an aspirin and admitting her. We may need to have Gastroenterology see her to sort out whether or not it is safe to anticoagulate. She cannot have an MRI because she has a pacemaker. I will order a carotid ultrasound and also antacids. I will discuss her case with the hospitalist who can coordina te Gastroenterology consult as well. [id number]/[facility] #: [id number]
[2017-12-25] MEDS: Heparin VIAL(*) 5000 UNITS/ML VIAL (FIVE THOUSAND) SUBCUT SCH ×3 (05:56→20:33)
[2017-12-25] MEDS: Acetaminophen TAB* 325 MG PO PRN ×2 (06:01→11:15)
--- NOTE | 2017-12-25 06:16 | HP ---
CC: Dr. Douglas Damon; Aamir Ross MD; Young Mittal MD * HISTORY AND PHYSICAL: DATE OF ADMISSION: 12/24/17 PRIMARY CARE PROVIDER: Dr. Douglas Damon. ATTENDING PHYSICIAN: Breanna Jordan MD * (dictated by Vannessa Tamayo NP). CHIEF COMPLAINT: Left hand and arm numbness and lightheadedness. HISTORY OF PRESENT ILLNESS: Ms. Phelan is a 77-year-old female with past medical history significant for CVA with residual left-sided weakness, atrial fibrillation, Parkinson's, hypertension, orthostatic hypotension and gastric ulcer with GI bleed, who was last hospitalized in August of this year for chest pain and an abnormal stress test. Prior to that, the patient had been admitted in February 2017 with a CVA. The stroke was presumed to be cardioembolic. She was initially discharged to home on Eliquis from [facility]. If appears that in a follow-up appointment with Cardiology that she was taken off her Eliquis by Dr. Mittal as it was felt the risk of fall and injury was greater than the risk of another stroke with her history of afib. In October 2016 she developed a GI bleed, was taken off all of her anticoagulation. The patient states that she has been doing well since her last hospitalization and has been feeling the best she has felt in a while. The patient denies any recent fevers, chills. She reports some chest pain earlier that felt as though she had been "smacked in the chest." This is resolved. She also occasionally reports shortness of breath or heavy feeling in her breathing when ambulating occasionally, but if she takes her time, this does not occur. She denies any cough, nausea, vomiting , diarrhea. She denies any lightheadedness for a month, previously she was having syncopal episodes secondary to orthostatic hypotension that was felt to be secondary to her Sinemet. The patient had been started on Florinef last year. The patient states today though she developed lightheadedness and was seeing stars. She denies any urinary symptoms or signs of GI bleeding. When she developed hand and arm numbness today that then turned into a tingling and feeling as though her arm was extra sensitive, she called Dr. Mittal's office, who recommended she come to the emergency room. While in the emergency room, she had a head CT showing chronic findings, no acute finding. She had an EKG showing an AFib/flutter that was V paced, no acute signs of ischemia. This EKG is similar to previous from 09/06/17, except for at that time she was not V paced, she was just in AFib. She now has a new T- wave inversion in lead V3 that was not present before and is flatter in V2. She had a troponin that was 0.00. Alk phos of 123. Her other labs were unremarkable. She was seen in consultation by Dr. Baker, who recommended she be admitted for overnight observation. The patient states that she has a feeling of both feet like she has socks on all the time that when she actually does not have socks on. She is unable to really describe this. She denies like a numbness or tingling feeling. The Hospitalist were asked to evaluate the patient for possible admission. PAST MEDICAL HISTORY: 1. Cerebrovascular accident with residual left-sided weakness. 2. Atrial fibrillation. 3. Parkinson's. 4. Hypertension. 5. Orthostatic hypotension. 6. Gastric ulcer with GI bleed. 7. Diastolic Heart Failure. 8. Paroxysmal V tach. PAST SURGICAL HISTORY: 1. Status post pacemaker insertion. 2. Status post appendectomy. 3. Status post hysterectomy. 4. Status post bilateral cataract extractions. 5. Status post left eye laser surgery. HOME MEDICATIONS: Include: 1. Omeprazole 20 mg oral twice daily. 2. Sinemet 25/100. She takes 2 tablets oral at 8 a.m., 1-1/2 tablets oral at noon, 1 tablet oral at 4 p.m. and 2 tablets at 8 p.m. 3. Metoprolol tartrate 50 mg oral twice daily. 4. [place] 5/325, 1 tablet oral 3 times daily as needed for pain. 5. Magnesium oxide 400 mg oral every evening. 6. Florinef 0.1 mg oral daily. 7. Atorvastatin 40 mg oral daily. 8. Acetaminophen 650 mg oral every day. ALLERGIES: PENICILLIN, CRYSTAL LIGHT, and TIKOSYN. FAMILY HISTORY: The patient's father passed at age 71 from an [place] and her mother passed at age 68 from an [place]. She denies any family history of diabetes mellitus. She has a significant family cancer history including a daughter with breast cancer, a sister with lung cancer, a maternal grandmother and maternal aunts with multiple different types of cancer. Father had throat cancer. SOCIAL HISTORY: The patient denies tobacco or recreational drug use. She occasionally drinks alcohol. Her son, Jorge L Phelan, will be her surrogate decision maker in the event she is unable to make decisions for herself and if Jorge L is unavailable, her daughter, Celena Kebede, will be her surrogate decision maker in the event that Jorge L is unavailable. REVIEW OF SYSTEMS: I performed an 11-point review of systems. All the pertinent positives and negatives are mentioned in the history of present illness. The remaining review of systems are negative. PHYSICAL EXAMINATION GENERAL APPEARANCE: The patient is alert, pleasant and appears to be in no acute distress. VITAL SIGNS: Temperature 99, heart rate 104, respiratory rate 20, O2 sat 97% on room air, blood pressure 160/106. HEENT: Normocephalic, atraumatic. Pupils are equal and reactive to light. Extraocular movements are intact. RESPIRATORY: There is no accessory muscle use. The lungs are clear to auscultation bilaterally. CARDIOVASCULAR: Regular rate and rhythm. S1 and S2 present. There are no murmurs, rubs, or gallops heard. ABDOMEN: Soft, nontender, and nondistended. There are bowel sounds present x4. EXTREMITIES: There is no lower extremity edema. DP and PT pulses are 2+ and symmetric. MUSCULOSKELETAL: There is no clubbing or cyanosis noted. The patient exhibits good strength in all extremities. NEUROLOGICAL: The patient is alert and oriented x4. Cranial nerves II through XII are grossly intact. The patient has equal hand inter com servicer. Her smile is symmetric. Her tongue is midline. PSYCHOLOGICAL: The patient is calm and cooperative. SKIN: There are no rashes or abnormalities seen. DIAGNOSTIC STUDIES/LABORATORY DATA: Sodium 139, potassium 3.6, chloride 102, CO2 of 26, BUN 23, creatinine 0.97, glucose 114. White blood cell count 7.7, hemoglobin 12.0, hematocrit 36, platelet count 224,000. Alk phos 123. Troponin 0.00. Urinalysis significant for specific gravity of 1.008, 1+ blood, squamous epithelial cells present. EKG shows atrial fib/flutter that is V paced and a rate of 69. There are no acute signs of ischemia. This EKG is similar to previous EKG from 09/06/17 with the exception of some new T-wave inversion in V3 and flattening in V2. At that time, she was not paced. Brain CT from today. Radiologist's impression: Chronic findings as described above without CT apparent acute intracranial abnormality. IMPRESSION: Ms. Phelan is a 77-year-old female with past medical history significant for cerebrovascular accident with residual left-sided weakness, atrial fibrillation, Parkinson's, hypertension, orthostatic hypotension, gastric ulcer with gastrointestinal bleed, who presented to the emergency room with complaints of left hand and arm numbness and lightheadedness earlier today. She will be admitted as an observation for possible transient ischemic attack. ASSESSMENT/PLAN: 1. Transient ischemic attack. The patient has already been seen in consultation by Dr. Baker. For the most part, her symptoms have now resolved. She has no signs of acute cerebrovascular accident on her brain CT from today. She is unable to have an MRI secondary to her pacemaker. She is not currently anticoagulated. It appears that Cardiology has stopped her anticoagulation due to her history of falls. Previously, Cardiology felt that she should be anticoagulated. I will plan for carotid ultrasounds. We should ask GI to consult on the patient in the morning to determine the risk of starting anticoagulation on her. She has no signs of bleeding currently, so I will start her on a baby aspirin starting in the morning. Additionally, I will check fasting lipids. She last had an echo in February 2017 at the time of her previous cerebrovascular accident. A bubble study was not performed as a Bubble study was not performed as a Bubble study was negative on previous RESHMA in 2007. We will check a guaiac just to ensure that the patient is not having bleeding to help with the decision of anticoagulation. 2. Hypertension. The patient is currently hypertensive in the emergency room with diastolic blood pressures in the 80s to 130s and systolic blood pressures in the 120s to 180s. She has not taken some of her medications today. I am going to resume her home medications and order hydralazine as needed for systolic blood pressures greater than 180 or diastolic blood pressures greater than 110. 3. Elevated alk phos. The patient appears to chronically have an elevated alk phos. She is actually lower than she has been previously at this time. 4. Atrial fibrillation. The patient's rate is currently controlled. She will be continued on her home metoprolol. Again, as previously mentioned, the patient is not currently anticoagulated. This should be discussed with Cardiology and GI in addition to Neurology and a decision made whether the patient should be anticoagulated going forward with her history of atrial fibrillation and strokes placing her at a greater risk of further strokes. 5. Parkinsonism. The patient will be continued on her home Sinemet dosing. 6. Orthostatic hypotension. For now, I am going to continue the patient on her Florinef as I am concerned that if I stop this, she will become orthostatic and have syncopal episodes. 7. History of gastric ulcer with gastrointestinal bleeding. The patient has had no signs of bleeding for a while now. She will be continued on her home omeprazole. 8. History of cerebrovascular accident with left-sided weakness residual. The patient will be continued on her home atorvastatin. We are going to start her back on a baby aspirin. 9. Fluids, electrolytes and nutrition. The patient will be on a heart-healthy diet. 10. Code status. Full code. 11. DVT prophylaxis. For DVT prophylaxis, the patient is at high risk, she will be on subcu heparin. 12. Disposition. Observation. TIME SPENT: Time for this admission was approximately 60 minutes, greater than half of that was spent with the patient discussing medications, past medical history, the events leading up to her arrival today, and performing a physical examination. The case has been reviewed with the attending, Dr. Jordan, who agrees with the plan of care. Reviewed by MARQUISE CHAVEZ 12/27/17 1948 [id number]/[facility] #: [id number] BHUPENDRA
[2017-12-25] MEDS: Aspirin 81 mg CHEW TAB* 81 MG TAB.CHEW PO SCH (08:14)
[2017-12-25] MEDS: Omeprazole CAP* 20 MG PO SCH ×2 (08:14→16:31)
[2017-12-25] MEDS: Fludrocortisone Acetate TAB* 0.1 MG PO SCH (08:14)
[2017-12-25] MEDS: Metoprolol Tartrate TAB* 50 mg PO SCH ×2 (08:14→20:33)
[2017-12-25] MEDS: Atorvastatin* 40 MG TAB PO SCH (08:15)
[2017-12-25] MEDS: Carbidopa/Levodop 25/100 MG TAB(*) PO SCH ×4 (08:15→20:32)
--- NOTE | 2017-12-25 13:56 | PN ---
Subjective Date of Service: 12/25/17 Interval History: HOSPITALIST PROGRESS NOTE Patient seen and examined at bedside. She feels well, no further episodes of numbness or tingling. States she has had no problems with GI bleed for 1 year. Family History: Unchanged from Admission Social History: Unchanged from Admission Past Medical History: Unchanged from Admission Objective Active Medications: Acetaminophen (Tylenol Tab*) 650 mg PO Q4H PRN PRN Reason: PAIN Last Admin: 12/25/17 11:15 Dose: 650 mg Hydrocodone Bitart/Acetaminophen ([place] 5-325 Tab*) 1 tab PO TID PRN PRN Reason: PAIN Aspirin (Aspirin 81 Mg Chew Tab*) 81 mg PO DAILY [facility] Last Admin: 12/25/17 08:14 Dose: 81 mg Atorvastatin Calcium (Lipitor*) 40 mg PO DAILY [facility] Last Admin: 12/25/17 08:15 Dose: 40 mg Carbidopa/Levodopa (Sinemet 25/100 Tab(*)) 1 tab PO DAILY@1600 [facility] Carbidopa/Levodopa (Sinemet 25/100 Tab(*)) 1.5 tab PO DAILY@1200 [facility] Last Admin: 12/25/17 11:15 Dose: 1.5 tab Carbidopa/Levodopa (Sinemet 25/100 Tab(*)) 2 tab PO DAILY@0800 [facility] Last Admin: 12/25/17 08:15 Dose: 2 tab Carbidopa/Levodopa (Sinemet 25/100 Tab(*)) 2 tab PO DAILY@2000 [facility] Last Admin: 12/24/17 21:12 Dose: 2 tab Fludrocortisone Acetate (Florinef Tab*) 0.1 mg PO DAILY [facility] Last Admin: 12/25/17 08:14 Dose: 0.1 mg Heparin Sodium (Porcine) (Heparin Vial(*)) 5,000 units SUBCUT Q8HR [facility] Last Admin: 12/25/17 13:01 Dose: 5,000 units Hydralazine HCl (Apresoline Iv*) 5 mg IV SLOW PU Q6H PRN PRN Reason: SBP > 180 or DBP > 110 Last Admin: 12/24/17 19:20 Dose: 5 mg Magnesium Oxide (Magox 400 Tab*) 400 mg PO QPM [facility] Metoprolol Tartrate (Lopressor Tab*) 50 mg PO BID [facility] Last Admin: 12/25/17 08:14 Dose: 50 mg Omeprazole (Prilosec Cap*) 20 mg PO BID AC [facility] Last Admin: 12/25/17 08:14 Dose: 20 mg Vital Signs - 8 hr 12/25/17 08:03 Temperature 97.7 F Pulse Rate 70 Respiratory 20 Rate Blood Pressure 147/93 (mmHg) O2 Sat by Pulse 99 Oximetry Oxygen Devices in Use Now: None Appearance: Pleasant elderly lady lying in bed in NAD. Eyes: No Scleral Icterus Ears/Nose/Mouth/Throat: Mucous Membranes Moist Neck: Trachea Midline Respiratory: Symmetrical Chest Expansion and Respiratory Effort, Clear to Auscultation Cardiovascular: - - Normal S1 and S2, irregularly irregular Neurological: Alert and Oriented x 3, NL Muscle Strength and Tone Result Diagrams: 12/24/17 16:29 12/24/17 16:29 Assess/Plan/Problems-Billing Assessment: Mrs. Phelan is a 77yo F with PMH of CVA with residual left hemiparesis, Afib, Parkison's disease, HTN, orthostatic hypotension, gastric ulcer with h/o GI bleed, s/p pacemaker placement, who presented to ED with c/o left arm nubness, found to have a probable CVA. - Patient Problems (1) CVA (cerebral vascular accident) Comment: - Neurology input appreciated - impression is patient had another cardioembolic CVA. - Recommended revisiting anticoagulation since she has not had GI bleed for a year. - GI consult requested. - Follow carotid US. (2) A-fib Comment: - Rate controlled with Metoprolol. - [id number] is 6 (female, age, HTN, CVA) predicting a 9.7% risk of stroke. - HAS-BLED score is 5. - Awaiting GI evaluation for endoscopy to then discuss risks vs benefits of anticoagulation. (3) Hypertension Comment: - Controlled. - Continue Metoprolol. (4) PUD (peptic ulcer disease) Comment: - Continue PPI. (5) DVT prophylaxis Comment: - SQ heparin (6) Full code status
[2017-12-25] MEDS: Magnesium Oxide TAB* 400 MG PO SCH (16:31)
--- NOTE | 2017-12-25 18:09 | RAD ---
INDICATION: Speech disturbance. Possible CVA. COMPARISON: March 12, 2017 CT angiogram. TECHNIQUE: Bilateral carotid duplex scan. Stenosis estimations reflect velocity criteria that have been correlated to angiographic stenosis calculations based on distal internal carotid diameter. REPORT: RIGHT ICA: 36 cm/s peak systolic 12 cm/s end diastolic CCA: 50 cm/s peak systolic ICA/CCA peak systolic ratio: 73 Minimal noncalcified atherosclerotic plaque at the RIGHT carotid bulb and proximal internal carotid artery. Preserved internal carotid artery low resistance waveforms. Antegrade flow in the right vertebral artery. LEFT ICA: 33 cm/s peak systolic 12 cm/s end diastolic CCA: 54 cm/s peak systolic ICA/CCA peak systolic ratio: 0.61 Minimal noncalcified plaque at the LEFT carotid bulb and proximal internal carotid artery. Preserved low resistance internal carotid artery waveforms. Antegrade flow documented at the LEFT vertebral artery. IMPRESSION: Minimal atherosclerotic plaque at the carotid bifurcations without significant resulting carotid stenosis. CPT II Codes: 3100F
--- NOTE | 2017-12-25 20:37 | CONS ---
CC: Dr. Douglas Damon * GASTROENTEROLOGY CONSULTATION: DATE OF CONSULT: 12/25/17 PRIMARY CARE PHYSICIAN: Dr. Douglas Damon. HISTORY OF PRESENT ILLNESS: Thank you for asking me to see Ms. Phelan. As you know, she is a 77-year-old female, who was admitted with likely TIA with left hand and arm numbness. She does have a history of CVA with residual left-sided weakness in the past and does have a history of atrial fibrillation. She did have a prior GI bleed due to peptic ulcer disease and anticoagulation including aspirin was discontinued. She has had a prior endoscopy with Dr. Bearden in October of 2016 and was noted to have a prepyloric gastric ulcer. The patient currently has stable hematocrit of 36 without evidence of any bleeding. We are asked to see the patient for consideration of endoscopy prior to anticoagulation. She has been commenced on aspirin. The patient denies any nausea or vomiting at this time. She has been on omeprazole 20 mg twice a day. PAST MEDICAL HISTORY: Significant for CVA, atrial fibrillation, Parkinson's disease, prior prepyloric gastric ulcer resulting in GI bleed on anticoagulation , status post pacemaker insertion, status post appendectomy and hysterectomy. MEDICATIONS: Currently include: 1. [place]. 2. Aspirin. 3. Lipitor. 4. Sinemet. 5. Florinef. 6. Hydralazine. 7. Metoprolol. 8. Omeprazole 20 mg b.i.d. ALLERGIES: To PENICILLIN and TIKOSYN. FAMILY HISTORY: Noncontributory. SOCIAL HISTORY: No tobacco or alcohol abuse. The patient lives at home. REVIEW OF SYSTEMS: Ten-point review of systems is performed and is otherwise negative. PHYSICAL EXAM: Ms. Phelan is a pleasant 77-year-old female, in no acute distress. Temperature is 98.6, heart rate 69, blood pressure 130/27. HEENT Exam : There is no scleral icterus. Heart is irregular rate and rhythm. Lungs are clear. Abdomen is soft. There is no tenderness. Bowel sounds are present. There is no distention. Skin is warm and dry. Extremities are without cyanosis , clubbing, or edema. LABORATORY DATA: Pertinent laboratory studies include INR of 0.9. BUN of 23, creatinine of 0.97. Albumin of 4.4. Normal liver function tests. IMPRESSION AND PLAN: Ms. Phelan presents with transient ischemic attack. She has a history of atrial fibrillation. Her anticoagulation had been discontinued due to a gastrointestinal bleed back in October of 2016. She has just been started on baby aspirin and apparently there is consideration for beginning anticoagulation again. Upper endoscopy has been requested. I have discussed this with the patient and she is agreeable. She has eaten today. She will be made n.p.o. and upper endoscopy will be performed tomorrow. She will continue her Prilosec 20 mg b.i.d. [id number]/[facility] #: [id number] [facility]
--- NOTE | 2017-12-25 20:54 | CONS ---
NEUROLOGY FOLLOWUP: DATE OF FOLLOWUP: 12/25/17 LOCATION: She is an inpatient in room 442. HOSPITALIST: Dr. Corrales. CHIEF COMPLAINT: Numb arm. INTERVAL HISTORY: Since yesterday Ms. Phelan feels fine. Her arm no longer feels numb and tingly. She does not have any headache, change in speech, or weakness in her limbs. She has no intestinal complaints either. MEDICATIONS: Reviewed, and she is now on: 1. Aspirin 81 mg p.o. q. day. 2. She remains on carbidopa/levodopa 25/100 two tablets at 8 a.m. and 10 p.m., 1- 1/2 tablets at noon, 1 tablet at 4 p.m. 3. Florinef 0.1 mg p.o. q. day. 4. Atorvastatin 40 mg p.o. q. day. 5. Metoprolol 50 mg p.o. b.i.d. 6. Omeprazole 20 mg p.o. b.i.d. PHYSICAL EXAMINATION: She is in good spirits. She is well hydrated. Temperature 98.6 temporal, blood pressure 130/27, heart rate about 70, respiratory rate 20, and oxygen saturation is 100% on room air. She is alert and in good spirits. Memory is intact. Language is fluent. Eye movements are full. Facial musculature is symmetric. She has reasonably good strength in the arms. There is no tremor today. DIAGNOSTIC STUDIES/LAB DATA: Laboratory data from today notable for cholesterol 164, LDL 67. Carotid ultrasound is pending. IMPRESSION AND PLAN: Impression is that of high risk of cerebrovascular disease. If she can be safely anticoagulated, that would markedly decrease her risk of a recurrent stroke. Dr. Corrales has consulted Gastroenterology and they will see the patient and the plan is for endoscopy tomorrow. If that is clear, then I would recommend starting a newer novel anticoagulant. This was explained to the patient and she is in agreement with the plan. For now, we will continue 1 aspirin a day. [id number]/[facility] #: [id number] [facility]PITALDeshaun
[2017-12-26 05:54] LABS: ABS Basophils 0.1 10^3/ul (0-0.2); ABS Eosinophils 0.1 10^3/ul (0-0.6); ABS Lymphocytes 2.2 10^3/ul (1.0-4.8); ABS Monocytes 0.7 10^3/ul (0-0.8); ABS Neutrophils 5.1 10^3/ul (1.5-7.7); ABS Nucleated RBC 0 10^3/ul; Eosinophil % 1.4 % (0-6); Hematocrit 38 % (35-47); Hemoglobin 13.1 g/dl (12.0-16.0); Lymphocyte % 27.3 % (25-47); Mean Corpuscular HGB Conc 34 g/dl (31-36); Mean Corpuscular Hemoglobin 32 pg (27-31); Mean Corpuscular Volume 94 fL (80-97); Mean Platelet Volume 8.3 um3 (7.4-10.4); Nucleated Red Blood Cells % 0; Platelet Count 251 10^3/ul (150-450); Red Cell Distribution Width 16 % (10.5-15); White Blood Count 8.2 10^3/ul (3.5-10.8)
[2017-12-26] MEDS: Heparin VIAL(*) 5000 UNITS/ML VIAL (FIVE THOUSAND) SUBCUT SCH ×3 (06:03→22:09)
[2017-12-26 06:11] LABS: EGFR Non-African American 52.9 (>60)
[2017-12-26] MEDS: Aspirin 81 mg CHEW TAB* 81 MG TAB.CHEW PO SCH (08:32)
[2017-12-26] MEDS: Atorvastatin* 40 MG TAB PO SCH (08:32)
[2017-12-26] MEDS: Metoprolol Tartrate TAB* 50 mg PO SCH ×2 (08:32→22:16)
[2017-12-26] MEDS: Omeprazole CAP* 20 MG PO SCH ×2 (08:32→17:31)
[2017-12-26] MEDS: Fludrocortisone Acetate TAB* 0.1 MG PO SCH (08:33)
[2017-12-26] MEDS: Carbidopa/Levodop 25/100 MG TAB(*) PO SCH ×4 (08:33→22:09)
[2017-12-26] MEDS ORDERED: Midazolam* 1 MG/ML 10 ML VIAL (10 MG) ONE (15:15)
[2017-12-26] MEDS ORDERED: fentaNYL* 50 MCG/ML 2 ML VIAL (100 MCG VIAL) ONE (15:15)
--- NOTE | 2017-12-26 15:38 | PN ---
Subjective Date of Service: 12/26/17 Interval History: HOSPITALIST PROGRESS NOTE Patient seen and examined at bedside. Offers no complaints, no further episodes of weakness, numbness, or tingling. Anxious to be discharged to see her puppy again. Family History: Unchanged from Admission Social History: Unchanged from Admission Past Medical History: Unchanged from Admission Objective Active Medications: Acetaminophen (Tylenol Tab*) 650 mg PO Q4H PRN PRN Reason: PAIN Last Admin: 12/25/17 11:15 Dose: 650 mg Hydrocodone Bitart/Acetaminophen ([place] 5-325 Tab*) 1 tab PO TID PRN PRN Reason: PAIN Aspirin (Aspirin 81 Mg Chew Tab*) 81 mg PO DAILY [facility] Last Admin: 12/26/17 08:32 Dose: 81 mg Atorvastatin Calcium (Lipitor*) 40 mg PO DAILY [facility] Last Admin: 12/26/17 08:32 Dose: 40 mg Carbidopa/Levodopa (Sinemet 25/100 Tab(*)) 1 tab PO DAILY@1600 [facility] Last Admin: 12/25/17 16:31 Dose: 1 tab Carbidopa/Levodopa (Sinemet 25/100 Tab(*)) 1.5 tab PO DAILY@1200 [facility] Last Admin: 12/26/17 13:06 Dose: 1.5 tab Carbidopa/Levodopa (Sinemet 25/100 Tab(*)) 2 tab PO DAILY@0800 [facility] Last Admin: 12/26/17 08:33 Dose: 2 tab Carbidopa/Levodopa (Sinemet 25/100 Tab(*)) 2 tab PO DAILY@2000 [facility] Last Admin: 12/25/17 20:32 Dose: 2 tab Fludrocortisone Acetate (Florinef Tab*) 0.1 mg PO DAILY [facility] Last Admin: 12/26/17 08:33 Dose: 0.1 mg Heparin Sodium (Porcine) (Heparin Vial(*)) 5,000 units SUBCUT Q8HR [facility] Last Admin: 12/26/17 15:04 Dose: Not Given Hydralazine HCl (Apresoline Iv*) 5 mg IV SLOW PU Q6H PRN PRN Reason: SBP > 180 or DBP > 110 Last Admin: 12/24/17 19:20 Dose: 5 mg Magnesium Oxide (Magox 400 Tab*) 400 mg PO QPM [facility] Last Admin: 12/25/17 16:31 Dose: 400 mg Metoprolol Tartrate (Lopressor Tab*) 50 mg PO BID [facility] Last Admin: 12/26/17 08:32 Dose: 50 mg Omeprazole (Prilosec Cap*) 20 mg PO BID [facility] Last Admin: 12/26/17 08:32 Dose: 20 mg Vital Signs - 8 hr 12/26/17 12/26/17 07:49 11:59 Temperature 97.8 F 98.6 F Pulse Rate 95 57 Respiratory 16 16 Rate Blood Pressure 114/75 125/87 (mmHg) O2 Sat by Pulse 99 100 Oximetry Oxygen Devices in Use Now: None Appearance: Pleasant elderly lady sitting up in a chair in NAD. Eyes: No Scleral Icterus Ears/Nose/Mouth/Throat: Mucous Membranes Moist Neck: Trachea Midline Respiratory: Symmetrical Chest Expansion and Respiratory Effort, Clear to Auscultation Cardiovascular: - - Normal S1 and S2, irregularly irregular Neurological: Alert and Oriented x 3, NL Muscle Strength and Tone Result Diagrams: 12/26/17 05:32 12/26/17 05:32 Assess/Plan/Problems-Billing Assessment: Mrs. Phelan is a 77yo F with PMH of CVA with residual left hemiparesis, Afib, Parkison's disease, HTN, orthostatic hypotension, gastric ulcer with h/o GI bleed, s/p pacemaker placement, who presented to ED with c/o left arm nubness, found to have a probable CVA. - Patient Problems (1) CVA (cerebral vascular accident) Comment: - Neurology input appreciated - impression is patient had another cardioembolic CVA. Cannot have MRI due to pacemaker. - Recommended revisiting anticoagulation since she has not had GI bleed for a year. - GI consult requested - plan for EGD today. - D/w her developer automatic (Dr. Mittal) - feels safe anticoagulation options would be Warfarin and Pradaxa since they have reversal agents. - Carotid US showed no significant stenosis. (2) A-fib Comment: - Rate controlled with Metoprolol. - WHCOw0Ivna is 6 (female, age, HTN, CVA) predicting a 9.7% risk of stroke. - HAS-BLED score is 5. - Awaiting GI evaluation for endoscopy to then decide about anticoagulation. (3) Hypertension Comment: - Controlled. - Continue Metoprolol. (4) PUD (peptic ulcer disease) Comment: - Continue PPI. (5) DVT prophylaxis Comment: - SQ heparin (6) Full code status Status and Disposition: Inpatient for management of CVA. Will watch at least 24h after starting anticoagulation.
--- NOTE | 2017-12-26 16:26 | PN ---
Hospitalist Progress Note Date of Service: 12/26/17 HOSPITALIST ADDENDUM Case d/w GI - difficult case. Her EGD shows her pre pyloric ulcer is healed, but she has multiple gastric erosions. GI recommends increasing her Omeprazole to 40mg BID and start anticoagulation in 5 days, understanding she'll be at risk for GI bleed, but even higher risk for stroke without anticoagulation. As documented prior her track worker feels Warfarin or Pradaxa would be the best options as they are reversible. She'll also need antiplatelet therapy. Plan to f/u with GI as outpatient for repeat EGD in 6 weeks.
[2017-12-26] MEDS: Magnesium Oxide TAB* 400 MG PO SCH (17:31)
--- NOTE | 2017-12-26 19:12 | PN ---
Progress Note - Progress Note Date of Service: 12/26/17 - Gastroenterology Note: Patient seen and examined. No new overnight issues. No abdominal pain. No rectal bleeding. Tolerating diet. Vital Signs: Temp Pulse Resp BP Pulse Ox 97.3 F 53 14 180/90 100 12/26/17 17:00 12/26/17 17:00 12/26/17 17:00 12/26/17 17:00 12/26/17 11:59 Physical Examination: GENERAL: NAD. ABDOMEN: Soft, NT/ND. Laboratory Results - last 24 hr 12/26/17 12/26/17 05:32 05:32 WBC 8.2 RBC 4.10 Hgb 13.1 Hct 38 MCV 94 MCH 32 H MCHC 34 RDW 16 H Plt Count 251 MPV 8.3 Neut % (Auto) 62.0 Lymph % (Auto) 27.3 Dolores % (Auto) 8.4 H Eos % (Auto) 1.4 Baso % (Auto) 0.9 Absolute Neuts (auto) 5.1 Absolute Lymphs (auto) 2.2 Absolute Monos (auto) 0.7 Absolute Eos (auto) 0.1 Absolute Basos (auto) 0.1 Absolute Nucleated RBC 0 Nucleated RBC % 0 Sodium 139 Potassium 3.7 Chloride 104 Carbon Dioxide 26 Anion Gap 9 BUN 29 H Creatinine 1.01 H Est GFR ( Amer) 68.0 Est GFR (Non-Af Amer) 52.9 BUN/Creatinine Ratio 28.7 H Glucose 100 Calcium 9.5 A/P 77 yo female with an acute CVA and PMH of A.fib, Parkinson's, orthostatic hypotension, s/p pacemaker placement and prior hx of GI bleeding from pre- pyloric gastric ulcer. 1. History of pre-pyloric gastric ulcer (10/2016) ~EGD today revealed 3 medium and large ulcerated and inflammed gastric nodules in the antrum of the stomach. Biopsies were done including Clotest to r/o H.pylori. Pre-pyloric ulcer seems to have healed and nodules may be inflammatory in nature. ~Recommend increasing PPI to 40 mg BID for 6 weeks, then decrease to 20 mg BID. Would recommend starting anticoagulation after a minimum of 3 days and 5 days if possible to allowing healing of the ulcerated areas to prevent GI bleeding as this had occurred back in 10/2016. 2. Acute CVA ~ASA daily. ~Anticoagulation to be started in the near future. ~Patient will need to follow-up in our office and then plan for repeat EGD in 6 weeks to check for healing of ulcerated areas. D/w Dr. Florian. Please call with any questions or concerns. Bibiana Andrews D.O.
[2017-12-27] MEDS: Acetaminophen TAB* 325 MG PO PRN (05:17)
[2017-12-27] MEDS: Heparin VIAL(*) 5000 UNITS/ML VIAL (FIVE THOUSAND) SUBCUT SCH (05:37)
[2017-12-27] MEDS: Carbidopa/Levodop 25/100 MG TAB(*) PO SCH ×2 (07:53→11:50)
[2017-12-27] MEDS: Omeprazole CAP* 20 MG PO SCH (07:53)
[2017-12-27] MEDS: Fludrocortisone Acetate TAB* 0.1 MG PO SCH (07:54)
[2017-12-27] MEDS: Atorvastatin* 40 MG TAB PO SCH (07:54)
[2017-12-27] MEDS: Aspirin 81 mg CHEW TAB* 81 MG TAB.CHEW PO SCH (07:55)
[2017-12-27] MEDS: Metoprolol Tartrate TAB* 50 mg PO SCH (07:55)
--- NOTE | 2017-12-27 08:46 | PRO ---
CC: Dr. Douglas Damon; Dr. Bernard Corrales; Dr. Bibiana Andrews GASTROENTEROLOGY OPERATIVE REPORT: DATE OF PROCEDURE: 12/24/17 OPERATIVE PROCEDURE: Esophagogastroduodenoscopy to third portion of the duodenum. ORTHODONTIST ASSISTANT: Bibiana Andrews MD. ANESTHESIA: 1. Midazolam 2.5 mg IV. 2. Fentanyl 12.5 mcg IV. HISTORY OF PRESENT ILLNESS: Liudmila is a pleasant 77-year-old female with multiple comorbidities including atrial fibrillation, Parkinson's, orthostatic hypertension, status post pacemaker, and history of a bleeding prepyloric gastric ulcer back in October 2016, who presented with an acute CVA. She is currently on a baby aspirin daily along with pantoprazole 20 mg twice a day. Gastroenterology was consulted for follow-up endoscopy of gastric ulcer due to need of anticoagulation secondary to several CVAs/TIAs recently. PREOPERATIVE DIAGNOSES: 1. Acute cerebrovascular accident requiring anticoagulation. 2. History of prepyloric gastric ulcer in October of 2016. POSTOPERATIVE DIAGNOSES: 1. Normal appearing mid and proximal esophagus. 2. Irregular appearing gastroesophageal junction with salmon-like patchy mucosa consistent with Vegas's esophagus, with biopsies. 3. A 2 cm hiatal hernia. 4. Mild antral gastritis with CLOtest to rule out H. pylori. 5. Three ulcerated [id number] antral nodules, with biopsies. No stigmata of recent GI bleeding seen. 6. Normal appearing duodenum to the third portion. RECOMMENDATIONS: 1. We will follow up with pathology results. 2. We will increase the patient's pantoprazole to 40 mg twice daily for 6 weeks to allow for the ulcerations to heal. 3. I discussed the patient's endoscopic findings with Dr. Bernard Corrales. I would recommend holding on anticoagulation if possible for approximately 5 days to allow healing of ulcerated nodules. After 5 days may initiate anticoagulation and the patient should follow up in our office in a few weeks after discharge and at which point we can schedule a follow-up endoscopy in 4 to 6 weeks to check for healing of these ulcerated nodules while on anticoagulation. DESCRIPTION OF PROCEDURE: Esophagogastroduodenoscopy was explained in detail to the patient. The risks, benefits, complications, alternatives, possibilities of missed lesions were explained and understood. Complications included, but were not limited to, reaction to anesthesia, aspiration, increased risk of bleeding, and perforation. All questions were answered. The patient demonstrated understanding of the conversation and informed consent was obtained. Next, the patient was brought to the endoscopy suite, placed in the left lateral recumbent position while blood pressure, cardiac, and oxygen monitors were applied. The patient was found to be a fit candidate for moderate anesthesia. After adequate IV sedation was achieved, a bite-block was placed. Next, a standard adult Olympus endoscope was inserted per os under direct visualization to the first, second, and third portion of the duodenum which were grossly normal appearing. Further withdrawal of the endoscope into the gastric lumen revealed mild erythema consistent with gastritis. There were also 3 medium to large sized nodules seen in the antrum that were ulcerated. No active bleeding was seen at this time or previous stigmata. Cold forceps biopsies were obtained from these nodules. On retroflexion, the patient had a slightly loose gastric cardia sling. Further withdrawal of the endoscope into the distal esophagus revealed a 2 cm hiatal hernia, ranging from 41 cm to 39 cm from the incisors. The patient also appeared to have an irregular gastroesophageal junction at 39 cm with salmon-like patchy mucosa consistent with Vegas's. Cold forceps biopsies were obtained from this area as well. The rest of tubular esophagus was normal appearing. Air was then removed from the patient, endoscope was removed from the patient. The patient tolerated the procedure well. There were no immediate complications. After a period of observation, the patient was transferred back to the medical floor for further care in stable condition. Thank you, Dr. Corrales , for allowing us to participate in the care of your patient. If you should have any further questions or concerns, please do not hesitate to contact us. [id number]/[facility] #: [id number]
[2017-12-27 12:08] VITALS: BP 104/58
--- NOTE | 2017-12-27 13:59 | DS ---
CC: Dr. Damon; Dr. Mittal * DISCHARGE SUMMARY: DATE OF ADMISSION: 12/24/17 DATE OF DISCHARGE: 12/27/17 PRIMARY CARE PROVIDER: Dr. Damon. ARCH CUSHION SKIVING MACHINE OPERATOR: Dr. Mittal. PRIMARY DIAGNOSIS: Suspected cerebrovascular accident. SECONDARY DIAGNOSES: Include: 1. History of gastrointestinal bleed with multiple gastric erosions noted during this hospital stay. 2. Chronic atrial fibrillation. 3. Parkinson's disease. 4. Orthostatic hypotension. 5. History of permanent pacemaker placement. 6. History of cerebrovascular accident as well as suspected recurrent cerebrovascular accident. MEDICATIONS ON DISCHARGE: Include: 1. Pradaxa 75 mg twice daily dose for a creatinine clearance between 30 and 50 not to start until , 01/01/18 discussed with the patient, placed on her discharge summary. 2. Aspirin 81 mg daily. 3. Sinemet per home regimen 1-1/2 tablets at noon, 1 tablet at 4 p.m., 2 tablets at 8 p.m., 2 tablets at 8 a.m. 4. Metoprolol tartrate 50 mg twice daily. 5. Hay[place] 5/325 mg 1 tablet 3 times a day as needed. 6. Magnesium 400 mg in the evening. 7. Florinef 0.1 mg daily. 8. Atorvastatin 40 mg daily. 9. Omeprazole 40 mg twice daily for the next 6 weeks and then decrease to 20 mg twice daily per Gastroenterology recommendations. Please note, the addition of dabigatran, aspirin, and increased dose of omeprazole. PROCEDURES PERFORMED DURING THE HOSPITAL STAY: EGD on 12/25/[address] Bibiana Andrews notable for 3 medium and large ulcerated and inflamed gastric nodules in the antrum of the stomach. CLOtest negative for H. pylori. Prepyloric ulcer previously known with history of bleeding has healed, although nodules may be inflamed in nature. HISTORY OF PRESENT ILLNESS AND HOSPITAL COURSE: This is a 77-year-old female with a past medical history of CVA in February 2017 as well as a history of GI bleed after which all her anticoagulation was discontinued, chronic atrial fibrillation, presented to the hospital with sensation of left-sided hand and arm numbness, as well as lightheadedness, which resolved during the course of the hospital stay. She was seen in conjunction with the Gastroenterology as well as Neurology. It was thought that the patient had a CVA, although MRI unable to be performed given her pacemaker. She underwent an EGD to further evaluate risk for recurrent bleeding with NOAC initiation. Results were as above. Pradaxa chosen for his reversibility after discussion between Dr. Corrales and Dr. Mittal. It was thought that the patient would not be able to be compliant with Coumadin at this time. She has to wait 5 days until 01/01/18 prior to initiation with Pradaxa which was discussed at length with the patient , as well as placed on a discharge summary. Her proton pump inhibitor was increased to 40 mg twice daily. She will need a repeat EGD per Dr. Andrews's recommendation approximately 6 weeks. On the day of discharge, the patient had no complaints. She has had no abdominal tenderness. No GI bleeding or other bleeding, although has not yet been started on anticoagulation. Risks and symptoms of bleeding and/or recurrence were discussed at length with the patient and she fully understands. Return to the emergency room if needed. At followup please; 1. Ensure the patient has started Pradaxa. Of note if her renal function has any decline, she may need to transition to Coumadin as she is on a threshold of the appropriate creatinine clearance, appropriate use for this medication. 2. Decrease omeprazole in 6 weeks to 20 mg twice daily. 3. Ensure followup with Gastroenterology for repeat endoscopy in approximately 6 weeks. 4. No other specific labs or vitals that need followup. TIME SPENT: Greater than 60 minutes was spent on discharging the patient, greater than half was spent [id number] with the patient. [id number]/[facility] #: [id number] MTDD
== END 2017-12-27 13:00 | disposition home or self-care (01) | DRG 65 ==
LOC: ED 15:37 → MEDTELE 18:48 → OBSVTOIN 12-25 10:28
PROVIDERS: ADMIT Internal Medicine; ATTEND Internal Medicine
PROC: 0DB48ZX Excision of Esophagogastric Junction, Via Natural or Artificial Opening Endoscopic, Diagnostic (ICD-10-PCS; principal; 2017-12-26)
PROC: 0DB68ZX Excision of Stomach, Via Natural or Artificial Opening Endoscopic, Diagnostic (ICD-10-PCS; 2017-12-26)
DX: I63.9 Cerebral infarction, unspecified (principal); I50.32 Chronic diastolic (congestive) heart failure; I69.354 Hemiplegia and hemiparesis following cerebral infarction affecting left non-dominant side; K21.9 Gastro-esophageal reflux disease without esophagitis; M06.9 Rheumatoid arthritis, unspecified; G43.909 Migraine, unspecified, not intractable, without status migrainosus; G20 Parkinson's disease; R20.0 Anesthesia of skin; I95.1 Orthostatic hypotension; R74.8 Abnormal levels of other serum enzymes; K25.9 Gastric ulcer, unspecified as acute or chronic, without hemorrhage or perforation; I48.2 Chronic atrial fibrillation; I11.0 Hypertensive heart disease with heart failure; H54.50 Low vision, one eye, unspecified eye; R42 Dizziness and giddiness; K22.70 Barrett's esophagus without dysplasia; K31.89 Other diseases of stomach and duodenum; K29.70 Gastritis, unspecified, without bleeding; K44.9 Diaphragmatic hernia without obstruction or gangrene; Z88.0 Allergy status to penicillin; Z88.8 Allergy status to other drugs, medicaments and biological substances; Z90.710 Acquired absence of both cervix and uterus; Z85.828 Personal history of other malignant neoplasm of skin; Z82.49 Family history of ischemic heart disease and other diseases of the circulatory system; Z72.89 Other problems related to lifestyle; Z98.42 Cataract extraction status, left eye; Z98.41 Cataract extraction status, right eye; Z80.1 Family history of malignant neoplasm of trachea, bronchus and lung; Z80.3 Family history of malignant neoplasm of breast; Z80.8 Family history of malignant neoplasm of other organs or systems; Z95.810 Presence of automatic (implantable) cardiac defibrillator; Z79.01 Long term (current) use of anticoagulants; Z79.82 Long term (current) use of aspirin
CPT/HCPCS: 36415; 70450; 80048; 80053; 80061; 81003; 81015; 82270; 83605; 84484; 85025; 85610; 87077; 87086; 88305; 93005; 93880; 99156; 99157; 99284; A9270-GY; G0378; J0360; J1644; J2250; J3010

== ENCOUNTER 2018-02-24 13:36 | Emergency (ER) | payer MEDICARE ==
[2018-02-24 13:59] VITALS: BP 139/92
--- NOTE | 2018-02-24 14:47 | RAD ---
INDICATION: Left rib injury. COMPARISON: Comparison is made with a prior chest x-ray study from April 23, 2017. TECHNIQUE: 5 views of the left ribs and dual-energy PA views of the chest were obtained. FINDINGS: There is an area of cortical irregularity involving the left lateral eighth rib possibly representing a nondisplaced fracture. No other fractures are seen. The heart is mildly enlarged and unchanged. There is a dual-chamber transvenous pacemaker present. No pneumothorax is seen. There is mild atelectasis at the left lung base and a trace left pleural effusion. IMPRESSION: 1. POSSIBLE NONDISPLACED FRACTURE OF THE LEFT LATERAL EIGHTH RIB. 2. TRACE LEFT PLEURAL EFFUSION. 3. CARDIOMEGALY, UNCHANGED.
--- NOTE | 2018-02-24 14:53 | UC ---
Truncal Trauma HPI - HPI Summary HPI Summary: 78 yo female presents with left lower rib pain for the last 2 days s/p falls. She tells me that 2 days ago she fell twice. First time was slipping on a patch of water in her kitchen and hit her left side against the refrigerator. Second time was the same day - she stepped on her shoe lace and stumbled forward hitting her left ribs on her walker. Still painful today. Did not hit her head or fall to the floor either time. Has not taken anything for the pain. No coughing or SOB. - History Of Current Complaint Chief Complaint: UCTrauma Stated Complaint: RIB INJURY Time Seen by Provider: 02/24/18 13:58 Hx Obtained From: Patient Onset/Duration: Sudden Onset Severity Initially: Mild Severity Currently: Mild Pain Intensity: 4 Pain Scale Used: 0-10 Numeric Mechanism Of Injury: Blunt Trauma - Allergies/Home Medications Allergies/Adverse Reactions: Allergies Allergy/AdvReac Type Severity Reaction Status Date / Time dofetilide [From Tikosyn] Allergy Unknown Verified 02/24/18 13:48 Reaction Details Penicillins Allergy Hives Verified 02/24/18 13:48 crystal light Allergy Airway Uncoded 02/24/18 13:48 Obstruction PMH/Surg Hx/FS Hx/Imm Hx Endocrine History: Dyslipidemia Cardiovascular History: Cardiac Disease, Pacemaker/ICD, Atrial Fibrillation GI/ History: Gastroesophageal Reflux Neurological History: Dementia - Surgical History Surgical History: Yes Surgery Procedure, Year, and Place: skin, hysterectomy- one ovary; appe; pacemaker; heart scraped after infection - Family History Known Family History: Positive: Unknown, Cardiac Disease, Hypertension, Other - [place] - Social History Occupation: Retired Lives: With Family Alcohol Use: Rare Substance Use Type: None Smoking Status (MU): Never Smoked Tobacco - Immunization History Most Recent Influenza Vaccination: fall 2015 Most Recent Tetanus Shot: unknown Most Recent Pneumonia Vaccination: 2016 Review of Systems Constitutional: Negative Skin: Negative Respiratory: Negative Gastrointestinal: Negative Musculoskeletal: Other: - TTP over left lower ribs Neurological: Negative Psychological: Negative All Other Systems Reviewed And Are Negative: Yes Physical Exam - Summary Physical Exam Summary: GENERAL: NAD. WDWN. No pain distress. SKIN: No rashes, sores, lesions, or open wounds. NECK: Supple. Nontender. No lymphadenopathy. CHEST: CTAB. No r/r/w. No accessory muscle use. Breathing comfortably and in no distress. CV: Pulses intact. Brisk cap refill. ABDOMEN: Soft. NTTP. No distention or guarding. Bowel sounds present MSK: Mild TTP over left lower ribs. NEURO: Alert. CN II-XII grossly intact. PSYCH: Age appropriate behavior. Triage Information Reviewed: Yes Vital Signs: Initial Vital Signs Temp 98 F 02/24/18 13:55 Pulse 100 02/24/18 13:55 Resp 20 02/24/18 13:55 BP 139/92 02/24/18 13:55 Pulse Ox 99 02/24/18 13:55 Truncal Trauma Course/Dx - Course Course Of Treatment: XR: IMPRESSION: 1. POSSIBLE NONDISPLACED FRACTURE OF THE LEFT LATERAL EIGHTH RIB. 2. TRACE LEFT PLEURAL EFFUSION. 3. CARDIOMEGALY, UNCHANGED. Advised to apply ice to the area. Try to take full deep breaths. Will try lidoderm patch. F/u with PCP within 1 month for recheck. - Differential Dx/Diagnosis Provider Diagnoses: Left 8th rib fracture Discharge - Sign-Out/Discharge Documenting (check all that apply): Patient Departure - Discharge Plan Condition: Stable Disposition: HOME Prescriptions: Lidocaine PATCH 5%* [Lidoderm 5% Patch*] 1 patch TRANSDERM DAILY #1 box Patient Education Materials: Rib Fracture (ED) Referrals: Douglas Dmaon MD [Primary Care Provider] - Additional Instructions: If you develop a fever, shortness of breath, chest pain, new or worsening symptoms - please call your PCP or go to the ED. - Billing Disposition and Condition Condition: STABLE Disposition: Home
== END 2018-02-24 15:15 | disposition home or self-care (01) ==
LOC: UCEAST 13:36
DX: S22.32XA Fracture of one rib, left side, initial encounter for closed fracture (principal); I51.7 Cardiomegaly; J90 Pleural effusion, not elsewhere classified; Z88.8 Allergy status to other drugs, medicaments and biological substances; Z88.0 Allergy status to penicillin; Z91.09 Other allergy status, other than to drugs and biological substances; Z95.810 Presence of automatic (implantable) cardiac defibrillator; W22.8XXA Striking against or struck by other objects, initial encounter; Y92.9 Unspecified place or not applicable
CPT/HCPCS: 99212; G0463

== ENCOUNTER 2018-05-08 15:58 | Observation (INO) | payer MEDICARE ==
[2018-05-08 16:33] LABS: ABS Basophils 0 10^3/ul (0-0.2); ABS Eosinophils 0 10^3/ul (0-0.6); ABS Monocytes 0.6 10^3/ul (0-0.8); ABS Neutrophils 5.5 10^3/ul (1.5-7.7); ABS Nucleated RBC 0 10^3/ul; Eosinophil % 0.4 % (0-6); Hematocrit 38 % (35-47); Hemoglobin 12.7 g/dl (12.0-16.0); Mean Corpuscular HGB Conc 33 g/dl (31-36); Mean Corpuscular Hemoglobin 31 pg (27-31); Mean Corpuscular Volume 94 fL (80-97); Mean Platelet Volume 8.3 um3 (7.4-10.4); Nucleated Red Blood Cells % 0; Platelet Count 299 10^3/ul (150-450); Red Blood Count 4.06 10^6/ul (4.00-5.40); Red Cell Distribution Width 15 % (10.5-15); White Blood Count 7.1 10^3/ul (3.5-10.8)
--- NOTE | 2018-05-08 16:39 | RAD ---
HISTORY: CP COMPARISONS: September 07, 2017 VIEWS: 1: frontal portable view of the chest at 4:30 PM FINDINGS: LINES AND TUBES: A right-sided dual-lead pacemaker is noted. CARDIOMEDIASTINAL SILHOUETTE: The cardiomediastinal silhouette is normal for portable technique. PLEURA: The costophrenic angles are sharp. No pleural abnormalities are noted. LUNG PARENCHYMA: The lungs are clear. ABDOMEN: The upper abdomen is clear. There is no subphrenic gas. BONES AND SOFT TISSUES: No bone or soft tissue abnormalities are noted. IMPRESSION: NO ACTIVE CARDIOPULMONARY DISEASE.
--- OUTSIDE RECORDS SUMMARY | 2018-05-08 16:43 | XMS REPORT ---
:1940 External Reference #:[id number] Author Organization [facility] Address [address] [place] [address] [place] [address] Phone [phone] Care Team Providers Name Role Phone Douglas Damon MD Primary Care Physician Unavailable Payers Type Date Identification Numbers Payment Provider Subscriber Medicare Primary Effective: Policy Number: Medicare Humberto Phelan 2002 [id number] PayID: [id number] [address] [place] [address] [facility] Part B Policy Number: [id number] [facility] Humberto Phelan PayID: [id number] [address] [place] [address] Problems Date Description Provider Status Onset: 02/21/2016 Paroxysmal atrial fibrillation Young Mittal M.D., Active [facility], [facility] Onset: 02/09/2015 Parkinson's disease Azalea Junior [...] Damon M.D. Active Onset: 09/16/2017 Chest pain oYung Mittal M.D., Active [facility] Onset: 10/15/2017 Mixed hyperlipidemia Douglas Damon M.D. Active Onset: 12/10/2017 Shoulder joint pain Douglas Damon M.D. Active Onset: 12/22/2017 Sinus node dysfunction Aamir Ross M.D. Active Onset: 12/22/2017 History of cerebrovascular Aamir Ross M.D. 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 Pradaxa 01/01/ Active Capsules 75mg 60cap 1 by Douglas 2018 s mouth Pachikara twice a , M.D. day Acetaminophen ER 09/08/ Active Tablets ER 650mg 1 tab by Unknown 2018 mouth q4 hours as needed pain Magnesium-Oxide 07/22/ Active Tablets 400(241.3m 90tab 1 by Matthew Swanson g) mg s mouth Von Lantigua, every M.D.,FACP evening Fludrocortisone 04/08/ Active Tablets 0.1mg 30tab take one Matthew Caballero 2017 s tablet by Von Lantigua mouth M.DGrant,FACP once daily Metoprolol 11/20/ Active Tablets 50mg 60tab take one I10 Douglas Tartrate 2017 s tablet by Nelson sharp M.D. twice a day Walker 09/09/ Active Misc 1unit 4 wheels, Carlos 2017 s brakes Lithuanian, and ARCHITECTURAL MODEL[employer] seat--for daily use Roller Walker 06/11/ Active Misc use daily G20 Azalea M. 2015 as selwyn Junior M.D. to prevent falls R29.6 Carbidopa-Levodopa 01/03/2014 Active Tablets 25-100mg 195tabs take 2 Aamir Ross M.D. 8am 1.5 tabs noon 1 tab 4pm 2 tabs 8pm Amlodipine Besylate Active Tablets 5mg 1 Unknown tablet po daily Am Omeprazole Active Capsules DR 40mg 180caps 1 by [place] mouth Nelson, twice a M.D. day [place] 12/27/2017 Hx Tablets 5-325mg 1 tab Unknown - tid prn 03/26/2018 Amlodipine Besylate 09/23/2017 Hx Tablets 5mg 90tabs 1 by Douglas - mouth Nelson, 12/29/2017 every M.D. day Amlodipine Besylate 09/18/2017 Hx Tablets 2.5mg 90tabs 1 by Matthew Sutherland mouth [place], 09/23/2017 every M.D.,FACP day Klor-Con M10 07/29/2017 Hx Tablets ER 10Meq 14tabs 1 by [place] - mouth [place]achik[place], 09/12/2017 every M.D. day Klor-Con M10 07/11/2017 Hx Tablets ER 10Meq 14tabs 1 by Matthew Longoria - mouth [place], 07/22/2017 every M.D.,FACP day Amlodipine Besylate 06/16/2017 Hx Tablets 2.5mg 30tabs 1 by Matthew Longoria - mouth [place], 06/16/2017 every M.D.,FACP day Eliquis 04/08/2017 Hx Tablets 2.5mg 60tabs 1 Other - tablet Ordering 04/22/2017 by Provider mouth twice a day. blood thinner . Atorvastatin 04/08/2017 Hx Tablets 40mg 30tabs take Douglas Calcium - one [place]ara, 02/11/2018 tablet M.D. by mouth hs Carafate 02/24/2017 Hx Tablets 1gm 120tabs Take 1 [place] - Tablet [place]ara, 05/21/2017 By M.D. Mouth AT 6Am , 11Am, 5PM, And 9PM (pt not taking) Iron 01/27/2017 Hx Tablets 325(65Fe) 30tabs 1 by Chase Allen, - mg mouth AR[employer]ECT[employer] MODELER 04/22/2017 every day Hydrocodone-Acetami 12/25/2016 Hx Tablets 5-325mg 10tabs 1 tab M Douglas nophen - three 5 [place]ara, 10/15/2017 times a 1 M.D. day as . needed 1 pain 6 Amlodipine Besylate 12/11/2016 Hx Tablets 2.5mg 30tabs Take [place] - two [place], 05/21/2017 TABLETs M.D. By Mouth Every Morning (no longer taking) Amlodipine Besylate 11/27/2016 Hx Tablets 5mg 30tabs 1 by [place] - mouth [place], 12/11/2016 every M.D. day Proair Respiclick 11/20/2016 Hx Aerosol 108(90Bas 1units 2 puffs R [place] - e) 3 times 0 [place]ara, 2017 mcg/Act a day 5 M.D. with spacer Fluticasone 11/20/2016 Hx Suspension 50mcg/Act 9.900ml 2 R Douglas Propionate - sprays 0 [place], 12/25/2016 each 5 M.D. nostril daily Doxycycline Hyclate 11/13/2016 Hx Capsules 100mg 20caps 1 cab J Douglas - twice a 2 [place], 11/22/2016 day 0 M.D. . 9 Prednisone 11/13/2016 Hx Tablets 10mg 20tabs 4 J Douglas - [id number] 2 [place], 11/22/2016 ys 0 M.D. [id number] . ays,2ta 9 [id number] ,1tabxd ay. Losartan 11/12/2016 Hx Tablets 50-12.5mg 30tabs take Douglas Potassium/Hydrochlo - one tab Thaddeusika, rothiazide 11/13/2016 daily M.D. Famotidine 11/07/2016 Hx Tablets 20mg 60tabs 1 Douglas - tablet [place]achikara, 2017 twice M.D. daily Fludrocortisone 11/01/2016 Hx Tablets 0.1mg 30tabs 1 by Other Acetate - mouth Ordering 12/25/2016 every Provider day not taking Carafate 11/01/2016 Hx Tablets 1gm 120tabs 1 by Douglas - mouth [place]ikara, 2017 at 6am, M.D. 11am, 4pm and 9pm Omeprazole 11/01/[address] 20mg 60caps 1 by Douglas - mouth [place]ik[place], 2017 twice a M.D. day before meals Hydrocodone-Acetami 08/01/2016 Hx Tablets 5-325mg 30tabs 1 by Douglas nophen - mouth [place]ikara, 08/07/2016 daily M.D. bedtime Acetaminophen 07/17/2016 Hx Capsules 500mg 180caps 2 tab Harpal Cole - by 5 [place], 11/05/2016 mouth 4 M.D. three . times a 5 day as needed Clindamycin HCL 05/07/2016 Hx Capsules 150mg 9caps one Joey Von - capsule Brand, M.D. 05/13/2016 by mouth three times a day for 3 days Lisinopril 07/08/2014 Hx Tablets 20mg 1/2 Mikal Blevins MD 06/04/2016 by mouth every day Hydrocodone-Acetami 07/08/2014 Hx Tablets 10-325mg 120tabs 1 tab Douglas kc - by Nelson, 07/17/2016 mouth M.DGrant every 6 hours as needed Ropinirole HCL 10/04/2013 Hx Tablets 0.25mg 60tabs 2 PO Azalea Banks - Q Sandi, 06/18/2014 M.D. Metoprolol 03/05/2013 Hx Tablets ER 100mg 180tabs 1 tab Young Dunlap Succinate ER - 24HR by Addison Mittal, 03/05/2013 mouth FACC, FASNC twice a day Metoprolol Tartrate 03/05/2013 Hx Tablets 100mg 180tabs 1/2 tab Andres Longoria - by Grzegorz, 11/20/2016 mouth MShane,FACP twice a day 11/06/16 (pt taking 1 po bid s/p [facility] stay) Carbidopa/Levodopa 12/01/2012 Hx Tablets 25-100mg 165tabs take Azalea Banks - 1-1 08/19 Sandi, 01/03/2014 cap po M.D. 4 times daily as directe d (1 08/19 - 1 2 - 1 08/19 - 1) Tikosyn 10/22/2012 Hx Capsules 250mcg 60caps 1 by Young Mittal M.D., 10/26/2016 twice a FACC, FASNC day Jantoven 10/21/2012 Hx Tablets 2mg 90tabs as Young Mittal M.D., 11/04/2016 d FACC, FASNC Metoprolol Tartrate 08/28/2012 Hx Tablets 50mg 270tabs /2 tabs Young Mittal M.D., 03/05/2013 mouth FACC, FASNC twice a day Furosemide 06/16/2012 Hx Tablets 20mg 30tabs 1 by Young Mittal M.D., 11/05/2016 every FACC, FASNC morning Lisinopril 06/15/2012 Hx Tablets 5mg 30tabs 1 tab Young Mittal M.D., 08/02/2014 mouth FACC, FASNC every day Hydrocodone/Acetami Hx Tablets 5-325mg 40tabs 1 tab Unknown nophen - po qid 08/02/2014 prn Vitamin D3 Hx Capsules 2000Unit 1 by Unknown - mouth 01/22/2016 every day Vitamin B-12 Hx Tablets 1000mcg 1 by Unknown - mouth 12/22/2015 every day Hydrocodone-Acetami Hx Tablets 5-325mg 60tabs 1 by [place] nophen - mouth P[place]ikara, 07/25/2016 twice M.D. daily prn. Lisinopril Hx Tablets 10mg 1 by Unknown - mouth 11/05/2016 every day Pain Relief 8 Hour Hx Tablets ER 650mg 1 by Unknown - mouth 12/21/2017 three times a day as needed for pain Sucralfate Hx Tablets 1gm 1 Unknown - tablet 04/28/2017 by mouth at 6am,11a m, 4pm, and 9pm Omeprazole Hx Capsules DR [facility] capsule M.D. by mouth twice a day x 6 weeks then decreas e to 1 cap daily Prednisolone Hx Suspension 1% 1 drop Unknown Acetate - 4 12/21/2017 times/ day in Right eye Ketorolac Hx Solution 0.5% Unknown Tromethamine - 12/21/2017 Ofloxacin Hx Solution 0.3% 2 gtta Unknown (Ophthalmic) - 12/21/2017 Aspirin 81 Low Dose Hx Chewtabs 81mg 1 by Unknown - mouth 01/01/2018 every day Medications Administered in Office Medication Date Status Form Strength Qnty SIG Indications Ordering Provider Inj, Administered Injection Joey Longoria Regadenoson, 013 Addison Bull 0.1 MG Technetium TC Administered Injection Joey Longoria 99M 013 Addison Bull Tetrofosmin, Per Unit Dose Up To 40 Millicuries Immunizations CPT Code Status Date Vaccine Reaction Lot # [id number] Given 05/21/2017 Influenza Virus Vaccine, [id number] Quadrivalent, Split, Preservative Free [id number] Given 05/21/2017 Pneumococcal Conjugate [id number] Vaccine 13 Valent For Intramuscular Use 61717 Given 08/07/2016 Zoster (Zostavax) no immediate reaction [id number] noted ... hh Vital Signs Date Vital Result Comment 05/06/2018 Height 59 inches 4'11" Weight 127.00 lb Heart Rate 91 /min BP Systolic 158 mmHg BP Diastolic 108 mmHg Body Temperature 96.9 F O2 % BldC Oximetry 99 % BMI (Body Mass Index) 25.6 kg/m2 04/06/2018 Height 59 inches 4'11" Weight 127.00 lb with shoes Heart Rate 80 /min BP Systolic Sitting 120 mmHg Lue reg cuff BP Diastolic Sitting 90 mmHg Lue reg cuff BP Systolic Standing 116 mmHg Lue reg cuff BP Diastolic Standing 82 mmHg Lue reg cuff Respiratory Rate 16 /min BMI (Body Mass Index) 25.6 kg/m2 Ejection Fraction 50-55% date 03/02/17 ECHO 03/27/2018 Height 59 inches 4'11" Weight 122.00 lb Heart Rate 84 /min BP Systolic 122 mmHg BP Diastolic 88 mmHg Respiratory Rate 20 /min BMI (Body Mass Index) 24.6 kg/m2 02/11/2018 Weight 118.00 lb 147 with her walker Heart Rate 69 /min BP Systolic Sitting 124 mmHg BP Diastolic Sitting 80 mmHg O2 % BldC Oximetry 97 % 01/01/2018 Weight 121.00 lb Heart Rate 97 /min BP Systolic 132 mmHg BP Diastolic 84 mmHg Body Temperature 97.8 F O2 % BldC Oximetry 98 % 12/22/2017 Height 59 inches 4'11" Weight 122.00 [...] Test Date Test Result H/L Range Note Laboratory test 12/26/2017 Surgical Interface SEE RESULT 1 finding Order BELOW Inr/Protime 12/24/2017 Inr 0.90 0.77-1.02 Lipid Profile 10/22/2017 Triglycerides 127 mg/dL 2, 3 (Trig/Chol/HDL) Cholesterol 151 mg/dL 2, 4 HDL Cholesterol 64.3 mg/dL 2, 5 LDL Cholesterol 61 mg/dL 2, 6 Laboratory test finding 09/06/2017 Lactic Acid 0.8 mmol/L 0.5-2.0 7 CBC Auto Diff 09/06/2017 White Blood Count [...] Egfr Non- 56.7 >60 Egfr 73.0 >60 8 Laboratory test finding 09/06/2017 Magnesium 2.0 mg/dL 1.9-2.7 Troponin-I (TnI) 0.02 ng/mL <0.04 B-Type Natriuretic Peptide BNP 512 pg/mL High 9 Inr/Protime 09/06/2017 Inr 0.98 0.77-1.02 Laboratory test [...] Egfr Non- 61.2 >60 Egfr 78.7 >60 10 Laboratory test finding 07/12/2017 Magnesium 1.5 mg/dL Low 1.9-2.7 Inr/Protime 07/12/2017 Inr 0.99 0.89-1.11 Urinalysis Profile 06/16/2017 Urine Color Yellow Urine Appearance Clear Urine Specific Cotton 1.013 1.010-1.030 Urine pH 6.0 5-9 Urine [...] And 06/16/2017 Urine Culture SEE RESULT BELOW 11 Sensitivities CBC Auto Diff 06/15/2017 White Blood [...] Egfr Non- 52.3 >60 Egfr 67.2 >60 12 Type & Screen 06/15/2017 Patient Blood Type O Positive Antibody Screen NEGATIVE Inr/Protime 05/12/2017 Inr 0.91 0.89-1.11 Laboratory test finding 05/12/2017 Partial Thrombo Time 27.0 seconds 26.0 -36.3 PTT Lactic Acid 1.1 mmol/L 0.5-2.0 13 CBC Auto Diff 05/12/2017 White Blood Count [...] Egfr Non- 58.9 >60 Egfr 75.7 >60 14 Laboratory test finding 05/12/2017 Magnesium 2.0 mg/dL 1.9-2.7 Troponin-I (TnI) 0.00 ng/mL <0.04 TSH (Thyroid Stim Horm) 0.68 mcIU/mL 0.34-5.60 Laboratory test finding 03/12/2017 Lactic Acid 0.8 mmol/L 0.5-2.0 15 CBC Auto Diff 03/12/2017 White Blood Count [...] Egfr Non- 59.6 >60 Egfr 76.7 >60 16 Lipid Profile (Trig/Chol/HDL) 03/12/2017 Triglycerides 98 mg/dL 17 Cholesterol 185 mg/dL 18 HDL Cholesterol 59.0 mg/dL 19 LDL Cholesterol 106 mg/dL 20 Laboratory test finding 03/12/2017 Troponin-I (TnI) 0.01 ng/mL <0.04 Inr/Protime 03/12/2017 Inr 0.94 0.89-1.11 Laboratory test finding 03/12/2017 Partial Thrombo Time 24.9 seconds Low 26.0-36.3 PTT Urinalysis Profile 03/12/2017 Urine Color Straw Urine Appearance Cloudy Urine Specific Cotton 1.010 1.010-1.030 Urine pH 7.0 5-9 Urine [...] TSH (Thyroid Stim Horm) 0.61 mcIU/mL 0.34-5.60 Basic Metabolic Panel 12/31/2016 Sodium 137 mmol/L 133-145 Potassium 4.4 mmol/L 3.5-5.0 Chloride 104 mmol/L 101-111 Co2 Carbon Dioxide 23 mmol/L 22-32 Anion Gap 10 mmol/L 2-11 Glucose 103 mg/dL High 70-100 Blood Urea Nitrogen 29 mg/dL High 6-24 Creatinine 1.05 mg/dL High 0.51-0.95 BUN/Creatinine Ratio 27.6 High 8-20 Calcium 9.1 mg/dL 8.6-10.3 Egfr Non- 50.7 >60 Egfr 65.2 >60 21 CBC Auto Diff 12/31/2016 White Blood Count [...] 0-2 Nucleated Red Blood Cells % 0 CBC Auto Diff 11/20/2016 White Blood Count [...] test 10/24/2016 Surgical Interface SEE RESULT BELOW 22 finding Order CBC Auto Diff 10/23/2016 White [...] finding 10/23/2016 Lactic Acid 0.7 mmol/L 0.5-2.0 23 Comp Metabolic Panel 10/23/2016 Sodium 136 mmol/L [...] Egfr Non- 21.9 >60 Egfr 28.2 >60 24 Laboratory test finding 10/23/2016 Magnesium 2.4 mg/dL 1.9-2.7 Troponin-I (TnI) 0.01 ng/mL <0.04 25 TSH (Thyroid Stim Horm) 0.35 mcIU/mL 0.34-5.60 Urinalysis Profile 10/23/2016 Urine Color Yellow Urine Appearance Clear Urine Specific Cotton 1.011 1.010-1.030 Urine pH 5.0 5-9 Urine [...] And 10/23/2016 Urine Culture SEE RESULT BELOW 26 Sensitivities Inr/Protime 10/07/2016 Inr 2.99 High 0.89-1.11 27 Inr/Protime 09/25/2016 Inr 3.98 High 0.89-1.11 27 Inr/Protime 09/19/2016 Inr 3.51 High 0.89-1.11 Inr/Protime 08/16/2016 Inr 2.85 High 0.89-1.11 27 Comp Metabolic Panel 08/16/2016 Sodium 138 mmol/L [...] Egfr Non- 60.6 >60 Egfr 77.9 >60 28 Lipid Profile (Trig/Chol/HDL) 08/16/2016 Triglycerides 142 mg/dL 29 Cholesterol 224 mg/dL 30 HDL Cholesterol 55.5 mg/dL 31 LDL Cholesterol 140 mg/dL 32 Inr/Protime 07/23/2016 Inr 2.85 High 0.89-1.11 27 Laboratory test finding 07/18/2016 Magnesium 2.3 mg/dL 1.9-2.7 33, 34 Basic Metabolic Panel 07/18/2016 Sodium 137 mmol/L 133-145 33 Potassium 4.9 mmol/L 3.5-5.0 33 Chloride 104 mmol/L 101-111 33 Co2 Carbon Dioxide 27 mmol/L 22-32 33 Anion Gap 6 mmol/L 2-11 33 Glucose 102 mg/dL High 70-100 33 Blood Urea Nitrogen 33 mg/dL High 6-24 33 Creatinine 0.94 mg/dL 0.51-0.95 33 BUN/Creatinine Ratio 35.1 High 8-20 33 Calcium 9.4 mg/dL 8.6-10.3 33 Egfr Non- 57.6 >60 33 Egfr 74.1 >60 33, 35 Laboratory test finding 07/01/2016 Magnesium 2.1 mg/dL [...] Egfr Non- 57.6 >60 Egfr 74.1 >60 36 Inr/Protime 07/01/2016 Inr 1.91 High 0.89-1.11 37 Inr/Protime 06/21/2016 Inr 2.89 High 0.89-1.11 37 Inr/Protime 06/13/2016 Inr 3.30 High 0.89-1.11 Inr/Protime 06/07/2016 Inr 1.58 High 0.89-1.11 37 Inr/Protime 05/29/2016 Inr 1.61 High 0.89-1.11 Laboratory test 05/07/2016 Surgical Pathology SEE RESULT BELOW 38 finding Pre Cath Panel 05/03/2016 Partial Thrombo 31.8 [...] Nucleated Red Blood Cells % 0 Inr/Protime 05/03/2016 Inr 2.03 High 0.89-1.11 Basic Metabolic Panel 05/03/2016 Sodium 138 mmol/L 133-145 Potassium 4.7 mmol/L 3.5-5.0 Chloride 105 mmol/L 101-111 Co2 Carbon Dioxide 25 mmol/L 22-32 Anion Gap 8 mmol/L 2-11 Glucose 95 mg/dL 70-100 Blood Urea Nitrogen 31 mg/dL High 6-24 Creatinine 1.21 mg/dL High 0.51-0.95 BUN/Creatinine Ratio 25.6 High 8-20 Calcium 8.9 mg/dL 8.6-10.3 Egfr Non- 43.0 >60 Egfr 55.3 >60 39 CBC Auto Diff 04/09/2016 White Blood Count [...] Egfr Non- 43.9 >60 Egfr 56.4 >60 40 Laboratory test finding 04/09/2016 Free T4 (Free Thyroxine) 0.88 ng/dL 0.61-1.12 TSH (Thyroid Stim Horm) 0.50 mcIU/mL 0.34-5.60 Vitamin B12 411 pg/mL 180-914 41 Inr/Protime 11/07/2015 Inr 2.32 High 0.89-1.11 Laboratory test finding 01/02/2015 Inr 1.58 High 0.78-1.07 CBC Auto Diff 06/02/2014 White Blood Count [...] 0-2 Nucleated Red Blood Cells % 0.1 Inr/Protime 06/02/2014 Inr 1.65 High 0.85-1.06 Comp [...] Egfr Non- 55.8 >60 Egfr 71.8 >60 42 Lipid Profile (Trig/Chol/HDL) 06/02/2014 Triglycerides 144 mg/dL 43 Cholesterol 165 mg/dL 44 HDL Cholesterol 39.6 mg/dL 45 LDL Cholesterol 97 mg/dL 46 Laboratory test finding 06/02/2014 Vitamin B12 209 pg/mL 180-914 47 TSH (Thyroid Stimulating Horm) 0.44 IU/mL 0.34-5.60 CRP High Sensitivity 13.43 mg/L 48 Laboratory test 03/28/2014 Inr 2.50 High 0.85-1.06 finding Laboratory test 03/18/2014 Inr 1.42 High 0.85-1.06 finding Laboratory test 02/24/2014 Inr 3.41 High 0.85-1.06 finding Laboratory test 02/04/2014 Inr 1.99 High 0.85-1.06 finding Laboratory test 01/20/2014 Inr 1.67 High 0.85-1.06 finding Laboratory test 11/01/2013 Inr 2.34 High 0.85-1.06 finding Inr/Protime 10/04/2013 Inr 3.57 High 0.85-1.06 Laboratory test 07/29/2013 Inr 1.95 High 0.85-1.06 49 finding Laboratory test 07/22/2013 C Reactive Protein < 0.5 mg/dL Less than 0.5 finding Erythrocyte Sed Rate 15 mm/Hr 0-40 Jolly (Anti-Nuclear AB) Screen Negative Negative 50 Rheumatoid Factor <15 IU/mL <15 51 Laboratory test finding 07/22/2013 Inr 4.62 High 0.85-1.06 52 Laboratory test finding 06/02/2013 Magnesium 2.3 mg/dL 1.7-2.6 Basic Metabolic Panel 06/02/2013 Sodium 138 mmol/L 133-145 Potassium 4.4 mmol/L 3.5-5.0 Chloride 104 mmol/L 101-111 Co2 Carbon Dioxide 27.0 mmol/L 22-32 Anion Gap 7.0 mmol/L 2-11 Glucose 88 mg/dL 70-100 Blood Urea Nitrogen 17 mg/dL 6-24 Creatinine 1.00 mg/dL 0.50-1.40 BUN/Creatinine Ratio 17.0 8-20 Calcium 9.2 mg/dL 8.1-9.9 Egfr Non- 54.1 >60 Egfr 69.5 >60 53 Laboratory test finding 06/02/2013 Inr 3.08 High 0.87-0.97 Laboratory test finding 04/07/2013 Inr 2.42 High 0.87-0.97 Laboratory test finding 03/29/2013 Inr 1.66 High 0.87-0.97 Laboratory test finding 03/22/2013 Inr 1.79 High 0.87-0.97 Inr/Protime 01/06/2013 Inr 2.24 High 0.87-0.97 Laboratory test finding 01/06/2013 Magnesium 2.1 mg/dL 1.7-2.6 Basic Metabolic Panel 01/06/2013 Sodium 142 mmol/L 133-145 Potassium 3.8 mmol/L 3.5-5.0 Chloride 109 mmol/L 101-111 Co2 Carbon Dioxide 26.0 mmol/L 22-32 Anion Gap 7.0 mmol/L 2-11 Glucose 119 mg/dL High 70-100 Blood Urea Nitrogen 15 mg/dL 6-24 Creatinine 1.00 mg/dL 0.50-1.40 BUN/Creatinine Ratio 15.0 8-20 Calcium 9.2 mg/dL 8.1-9.9 Egfr Non- 54.2 >60 Egfr 69.7 >60 54 Laboratory test finding 08/21/2012 Inr 3.56 High 0.82-1.17 55 Laboratory test finding 05/28/2012 Magnesium 2.5 mg/dL [...] Egfr Non- 61.2 >60 Egfr 78.7 >60 56 Laboratory test finding 05/28/2012 Inr 2.06 High 0.82-1.17 57 1 SEE RESULT BELOW Name: RAKESHHUMBERTO : [address]: Jayme Guzman MD Acct: [id number] Unit: [id number] AGE: 77 Location: [place] [address] Re12/25/17 Dis: 12/27/17 SEX: F Status: DIS IN SPEC: [id number] NATE: 12/26/17- [facility] DR: Bibiana Andrews DO REQ: [id number] RECD: 12/26/17 STATUS: BLAKE TRACY DR: Jayne Damon MD _ ORDERED: LEVEL 4/2 FINAL DIAGNOSIS 1. Stomach, antrum, biopsy: -- Antral-type mucosa with reactive chemical gastropathy. 2. Gastroesophageal junction, biopsy: -- Columnar-type mucosa with chronic inflammation. -- Intestinal metaplasia is absent. -- Dysplasia is absent. CLINICAL HISTORY 77 year old female with atrial fibrillation, Parkinson?s, orthostatic hypotension, acute cerebrovascular accident; for screening EGD to check for gastric ulcer ? previous prepyloric ulcer 10/2016. POST-OPERATIVE DIAGNOSIS EGD: normal mid and proximal esophagus; irregular gastroesophageal junction and salmon-like mucosa ? biopsy; 2 cm hiatal hernia, 41 cm to 39 cm; mild antral gastritis ? CLOtest; (3) ulcerated antral nodules ? biopsy; normal duodenum. GROSS DESCRIPTION 1. The specimen is received in formalin labeled, Gastric Antrum Ulcerations Nodules, and consists of a 0.5 x 0.2 x 0.2 cm aggregate of herrera-brown irregular soft tissue fragments which is submitted entirely in one cassette. 2. The specimen is received in formalin labeled, GE Junction Biopsies, and consists of a 0.5 by up to 0.4 x 0.2 cm herrera irregular soft tissue fragment which is submitted entirely in one cassette. CONTINUED ON NEXT PAGE DEPARTMENT OF PATHOLOGY, [address] [place] [address] Enrrique Roberts M.D. Director [facility] # [id number] RUN DATE: 12/30/17 [facility] LAB LIVE PAGE 2 Patient: ALESSANDRALEONHUMBERTO [id number] (Continued) GROSS DESCRIPTION (Continued) Signed by and Reported on: Anali Malone MD 12/30/17 1131 END OF REPORT DEPARTMENT OF PATHOLOGY, [address] [place] [address] Enrrique Roberts M.D. Director [facility] # [id number] 2 FASTING 10 HOUR 3 Desirable: <150 Borderline High: 150-199 High: 200-499 Very High: >500 4 Desirable: <200 Borderline High: 200-239 High: >239 5 Low: <40 Desirable: 40-60 High: >60 6 Desirable: <100 Near Optimal: 100-129 Borderline High: 130-159 High: 160-189 Very High: >189 7 [facility] Severe Sepsis and Septic Shock Management Bundle Measure requires all lactic acids initially measuring >2.0 mmol/L be repeated. 8 Because ethnic data is not always readily [...] 15-29 5 Kidney failure <15 (or dialysis) 9 >100 to <200 pg/mL: likely compensated congestive heart failure (CHF) 200 to 400 pg/mL: likely moderate CHF >400 pg/mL: likely moderate to severe CHF 10 Because ethnic data is not always readily [...] 15-29 5 Kidney failure <15 (or dialysis) 11 SEE RESULT BELOW Name: HUMBERTO PHELAN : [address]: Vish Clement MD Acct: [id number] Unit: [id number] AGE: 77 Location: ED Re06/15/17 SEX: F Status: REG ER SPEC: [id number] NATE: 06/16/[address] [facility] DR: Vish Clement MD REQ: [id number] RECD: 06/16/17 STATUS: INDIO TRACY DR: Douglas Damon MD _ SOURCE: URINE SPDESC: ORDERED: Urine Culture Procedure Result Reported Site Urine Culture Final 06/17/17- 0839 ML No growth of clinically significant organisms * ML - MAIN LAB (PSC1) . END OF REPORT * ML=Testing performed at Main Lab DEPARTMENT OF PATHOLOGY, [address] [place] [address] Enrrique Roberts M.D. Director [facility] # [id number] 12 Because ethnic data is not always [...] 5 Kidney failure <15 (or dialysis) 13 [facility] Severe Sepsis and Septic Shock Management Bundle Measure requires all lactic acids initially measuring >2.0 mmol/L be repeated. 14 Because ethnic data is not always readily [...] 15-29 5 Kidney failure <15 (or dialysis) 15 [facility] Severe Sepsis and Septic Shock Management Bundle Measure requires all lactic acids initially measuring >2.0 mmol/L be repeated. 16 Because ethnic data is not always readily [...] 15-29 5 Kidney failure <15 (or dialysis) 17 Desirable <150 Borderline high 150-199 High 200-499 Very High >500 18 Desirable <200 Borderline high 200-239 High >239 19 Low <40 Desirable: 40-60 High: >60 20 Desirable: <100 mg/dL Near Optimal: 100-129 mg/dL Borderline High: 130-159 mg/dL High: 160-189 mg/dL Very High: >189 mg/dL 21 Because ethnic data is not always readily [...] 15-29 5 Kidney failure <15 (or dialysis) 22 SEE RESULT BELOW Name: HUMBERTO PHELAN : [address]: Barbi Goff MD Acct: [id number] Unit: [id number] AGE: 76 Location: [place] [address] Re10/24/16 SEX: F Status: ADM IN SPEC: [id number] NATE: 10/24/16-[address]: Venkata Bearden MD REQ: [id number] RECD: 10/24/162582 STATUS: BLAKE TRACY DR: Dagoberto Damon MD _ ORDERED: H PYLORI IMM ST, LEVEL IV Addendum: An immunohistochemical stain for [...] performed at Main Lab DEPARTMENT OF PATHOLOGY, [address] [place] [id number] Enrrique Roberts M.D. Director [facility] # [id number] 23 [facility] Severe Sepsis and Septic Shock Management Bundle Measure requires all lactic acids initially measuring >2.0 mmol/L be repeated. 24 Because ethnic data is not always readily [...] 15-29 5 Kidney failure <15 (or dialysis) 25 99th percentile=0.04 ng/mL Troponin results at [facility] and [facility] are not interchangeable. 26 SEE RESULT BELOW Name: HUMBERTO PHELAN : [address]: Singh Arvizu MD Acct: [id number] Unit: [id number] AGE: [id number] Location: [place] [address] Re10/24/16 SEX: F Status: ADM IN SPEC: [id number] NATE: 10/23/[address] [facility] DR: Aniceto Espinosa MD REQ: [id number] RECD: 10/23/16 STATUS: INDIO TRACY DR: Douglas Damon MD _ SOURCE: URINE SPDESC: ORDERED: Urine Culture Procedure Result Reported Site Urine Culture Final 10/25/16811 ML Organism 1 PROTEUS MIRABILIS [place] Count 10-25,000 (Moderate) CFU/ML 1. PROTEUS MIRABILIS [...] performed at Main Lab DEPARTMENT OF PATHOLOGY, [address] [place] [address] Enrrique Roberts M.D. Director [facility] # [id number] 27 STANDING ORDER ENTERED 05/25/16 EXPIRES 11/12/16 Q MONTHLY AND PRN 28 Because ethnic data is not always readily [...] 15-29 5 Kidney failure <15 (or dialysis) 29 Desirable <150 Borderline high 150-199 High 200-499 Very High >500 30 Desirable <200 Borderline high 200-239 High >239 31 Low <40 Desirable: 40-60 High: >60 32 Desirable: <100 mg/dL Near Optimal: 100-129 mg/dL Borderline High: 130-159 mg/dL High: 160-189 mg/dL Very High: >189 mg/dL 33 ORDERED 06/27/16 EXPIRES 12/25/16 CC: PACHIKARA 34 ORDERED 06/27/16 EXPIRES 12/25/16 CC: PACHIKARA 35 Because ethnic data is not always [...] 5 Kidney failure <15 (or dialysis) 36 Because ethnic data is not always readily [...] 15-29 5 Kidney failure <15 (or dialysis) 37 STANDING ORDER ENTERED 05/25/16 EXPIRES 11/12/16 Q MONTHLY AND PRN 38 SEE RESULT BELOW Name: HUMBERTO PHELAN : [address]: Joey Bull MD Acct: [id number] Unit: [id number] AGE: 76 Location: [facility] Re/20/16 SEX: F Status: REG REF SPEC: [id number] NAET: 05/07/[address] [facility] DR: Joey Bull MD REQ: [id number] RECD: 05/07/16 STATUS: SOUT _ ORDERED: LEVEL I FINAL DIAGNOSIS Pacemaker generator: Foreign body (pacemaker generator) (Gross diagnosis). PRE-OPERATIVE DIAGNOSIS Sick sinus syndrome, E.R.I. GROSS DESCRIPTION The specimen is received fresh with no source identified, and consists of a 4.7 x 4.5 x 0.6 cm silver metallic biomedical engineering aide. The following inscription is identified: [employer] Sensia SEDR01 DDDR SN [id number] [facility]. Per established hospital medical staff protocol, no tissue is submitted. Gross only. Signed (signature on file) Anali Malone MD 1046 END OF REPORT * ML=Testing performed at Main Lab DEPARTMENT OF PATHOLOGY, [address] [place] [address] Enrrique Roberts M.D. Director [facility] # [id number] 39 Because ethnic data is not always [...] 5 Kidney failure <15 (or dialysis) 40 Because ethnic data is not always readily [...] 15-29 5 Kidney failure <15 (or dialysis) 41 Normal Range 180 to 914 Indeterminate Range 145 to 180 Deficient Range <145 42 Because ethnic data is not always readily [...] 15-29 5 Kidney failure <15 (or dialysis) 43 Desirable <150 Borderline high 150-199 High 200-499 Very High >500 44 Desirable <200 Borderline high 200-239 High >239 45 Low <40 Desirable: 40-60 High: >60 46 Desirable <100 Near Optimal 100-129 Borderline high 130-159 High 160-189 Very High >189 47 Normal Range 180 to 914 Indeterminate Range 145 to 180 Deficient Range <145 48 Low risk: <1.00 Average risk: 1.00-3.00 High risk: >3.00 49 Please note the change in the INR reference range effective 13. 50 @Sample frozen by [id number] at 1056 on 07/22/13. 51 Test Performed by: [address] [address] [employer]ellite Tv Technician Installer: Carmine Loomis III, M.D. 52 Please note the change in the INR reference range effective 13. 53 Because ethnic data is not always [...] 5 Kidney failure <15 (or dialysis) 54 Because ethnic data is not always readily [...] 15-29 5 Kidney failure <15 (or dialysis) 55 The INR(International Normalized Ratio) was adopted by [...] from prosthetic heart valves 2.5 - 3.5 56 Because ethnic data is not always readily [...] 15-29 5 Kidney failure <15 (or dialysis) 57 Recommended INR for Patients on Oral Anticoagulants Prophylaxis 2.0 - 3.0 Treatment of thrombosis 2.0 - 3.0 Prevention of embolism 2.0 - 3.0 Prevention of embolism from prosthetic heart valves 2.5 - 3.5 Procedures Date CPT Code Description Status Comment 05/01/2018 Diabetic Retinal Eye Exam Completed Document: 05/01/18 - Consult Ophthalmology Koko Bustillos 04/06/2018 28364 EKG Tracing & Interpretation Completed 01/01/2018 88117 Remove Impacted Cerumen Completed 12/26/2017 07165 Endoscopy Upper GI Biopsy Completed 12/10/2017 92666 Pace Maker Eval W/Iterative Completed Adjment Dual Lead 12/10/2017 73528 Pace Maker Eval W/Iterative Completed Adjment Dual Lead 09/16/2017 79974 EKG Tracing & Interpretation Completed 09/08/2017 99154 Treadmill Interp/Report Only Completed 09/08/2017 17713 Stress Test Supervsn W/Out Completed I/R 07/11/2017 30386 Holter Monitor Review (24 Completed hr)dr review & interp only 07/08/2017 19666 ECG Monitor/Recording Completed W/Visual Superimposition Scanning 05/05/2017 64525 EKG Tracing & Interpretation Completed 03/27/2017 19373 EKG, Interpretation Only Completed 03/14/2017 60882 Interrogation Device Eval In Completed Person W/DR Analysis,Single,Dual,Mul 03/12/2017 52215 EEG Recording Awake & Drowsy Completed 03/12/2017 92956 ECHO Transthorasic Realtime Completed 2D W Doppler & Color Flow Hosp 12/02/2016 08507 Pace Maker Eval W/Iterative Completed Adjment Dual Lead 11/20/2016 28907 Inhalation TX For Acute Completed Airway Obstruction W/Nebulizer/Inhaler 11/06/2016 95447 EKG Tracing & Interpretation Completed 10/28/2016 76003 Treadmill Interp/Report Only Completed 10/28/2016 58044 Stress Test Supervsn W/Out Completed I/R 10/27/2016 37577 EKG, Interpretation Only Completed 10/23/2016 27316 ECHO Transthorasic Realtime Completed 2D W Doppler & Color Flow Hosp 06/04/2016 77043 Pace Maker Eval W/Iterative Completed Adjment Dual Lead 05/07/2016 98676 Removal With Replacement Dual Completed Lead System Pulse Generator 05/01/2016 68387 Interrogation Device Eval In Completed Person W/DR Analysis,Single,Dual,Mul 04/19/2016 17058 Pace Maker Eval W/Iterative Completed Adjment Dual Lead 02/21/2016 34095 EKG Tracing & Interpretation Completed 02/09/2016 89670 Interrogation Device Eval In Completed Person W/DR Analysis,Single,Dual,Mul 11/09/2015 56151 Interrogation Device Eval In Completed Person W/DR Analysis,Single,Dual,Mul 08/16/2015 55341 Pace Maker Eval W/Iterative Completed Adjment Dual Lead 03/14/2015 31800 EKG Tracing & Interpretation Completed 03/08/2015 22738 Interrogation Device Eval In Completed Person W/DR Analysis,Single,Dual,Mul 12/27/2014 96850 Interrogation Device Eval In Completed Person W/DR Analysis,Single,Dual,Mul 08/03/2014 02484 EKG Tracing & Interpretation Completed 06/08/2014 79104 Pace Maker Eval W/Iterative Completed Adjment Dual Lead 11/18/2013 74507 Pace Maker Eval W/Iterative Completed Adjment Dual Lead 09/08/2013 Mammogram Completed 05/25/2013 56825 Cardiac Event Monitor Completed 04/23/2013 36960 EKG Tracing & Interpretation Completed 04/22/2013 12882 Pace Maker Eval W/Iterative Completed Adjment Dual Lead 11/09/2012 34014 Pace Maker Eval W/Iterative Completed Adjment Dual Lead 11/06/2012 08075 Myocardial Perfusion Imaging Completed Tomographic (Spect) Multiple Studies 11/06/2012 07603 Stress Test Completed 08/28/2012 39699 EKG Tracing & Interpretation Completed 08/26/2012 49445 Pace Maker Eval W/Iterative Completed Adjment Dual Lead Encounters Type Date Location Provider CPT E/M Dx Office Visit 04/06/2018 [facility] Mittal, 23009 I48.2 1:00p Christin Jaime, FAC, [facility] Office Visit 03/27/2018 [facility] Aamir Ross M.D. 65125 G20 10:15a Services Of [facility] Z86.73 I48.91 Office Visit 02/11/2018 11:20a [facility] Internal Medicine Douglas Damon M.D. 72587 I10 - [place] I48.91 E78.2 Office Visit 01/01/2018 11:40a [facility] Internal Medicine Eva Urena, N.P. 84789 I63.40 - [place] H61.23 Office Visit 12/27/2017 1:55p [facility], Jayme Guzman, 63541 I63.40 Hospitalvarsha Jaime I10 R42 I48.91 Office Visit 12/26/2017 1:54p [facility], Jayne Barger, 18581 I63.40 Hospitalists M.DGrant I10 R42 I48.91 Office Visit 12/25/2017 1:54p [facility] Assoc,pc Jayne Barger, 02724 I63.40 Hospitalists M.DGrant I10 Office Visit 12/25/2017 7:00a [facility] [place] [address] Z87.11 G45.9 K92.2 Office Visit 12/25/2017 2:16p [facility] Steve Baker, 79511 G45.9 M.D. I48.2 Office Visit 12/24/2017 1:53p [facility] Vannessa De La Paz, 26033 R20.2 Assoc,pc [employer] Hospitalists R42 I10 I48.91 Office Visit 12/24/2017 2:13p [facility] Steve Baker, 77079 G45.9 M.DGrant I10 I48.2 G20 Office Visit 12/22/2017 9:30a [facility] Aamir Ross M.D. 48847 G20 Services Of [facility] I48.91 I49.5 Z95.0 Z86.73 Office Visit 12/10/2017 11:00a [facility] Internal Medicine Douglas Damon M.D. 22899 I10 - [place] I48.2 M25.511 I95.1 Office Visit 10/15/2017 10:00a [facility] Internal Medicine Douglas Damon M.D. 41779 I10 - [place] R26.81 I48.2 E78.2 M25.511 Office Visit 09/16/2017 1:45p [facility], 39350 R07.89 [facility] Addison, FACC, FASNC Office Visit 09/12/2017 2:40p [facility] [place] [address] I10 [place] R94.5 R07.89 Office Visit 09/08/2017 8:13a [facility] Vannessa De La Paz, 76599 R07.9 Assoc,pc [employer] Hospitalists G20 I48.91 Z86.73 Office Visit 09/07/2017 8:13a [facility] [place], [address] R07.9 Assoc,pc Hospitalists M.Von G20 I48.91 Z86.73 Office Visit 08/27/2017 9:40a [facility] Internal Medicine Douglas Damon, 22922 L98.9 - Christine Jaime R26.81 Office Visit 07/18/2017 1:40p [facility] Internal Douglas Damon, 90921 Z01.818 Medicine - [address] M.DGrant I10 I48.2 G20 Office Visit 07/15/2017 2:45p [facility], 56803 I48.2 Christin Jaime, [facility], [facility] H26.9 Z01.810 Office Visit 07/15/2017 3:00p [facility] Azalea Junior, 79692 G20 Services Of Christin Jaime I48.0 I69.354 Office Visit 07/02/2017 11:40a [facility] Internal Medicine Douglas Damon, 54504 R26.9 - Christine Jaime Office Visit 06/18/2017 11:20a [facility] Internal Medicine Douglas Damon, 54314 G45.9 - Christine Jaime R42 R29.6 Office Visit 05/21/2017 8:40a [facility] Internal Medicine Douglas Damon M.D. 19558 I10 - [place] I63.9 I95.2 Z23 Office Visit 05/05/2017 9:45a [facility], 58724 I48.0 Christin Jaime, [facility], [facility] Office Visit 04/22/2017 2:00p [facility] Internal Medicine - Douglas Damon, 67331 I48.0 [place] Mauricio MShane I10 I63.9 R07.89 R29.6 Office Visit 03/21/2017 4:50p [facility] Shirley Friedman, 93474 I63.9 M.DGrant I48.91 Office Visit 03/20/2017 4:23p [facility] Barbi Goff, 34544 I63.20 Assoc, Hospitalists M.Von I10 G20 I95.1 Office Visit 03/19/2017 4:23p [facility] Barbi Shell, 46290 I63.20 Assoc,pc Hospitalists M.D. I10 G20 I95.1 Office Visit 03/17/2017 4:22p [facility] Barbi Shell, 01064 I63.20 Assoc,pc Hospitalists M.D. I10 G20 I95.1 Office Visit 03/16/2017 3:43p [facility] Barbi Shell, 20935 I63.40 Assoc,pc Hospitalists M.D. I48.0 I95.1 Office Visit 03/15/2017 3:43p [facility] Barbi Shell, 54278 I63.40 Assoc,pc Hospitalists M.D. I48.0 I95.1 Office Visit 03/14/2017 9:06a [facility] [place] [address] R55 FAC I63.9 Z95.0 I49.5 Office Visit 03/14/2017 3:42p [facility] Barbi Shell, 63145 I63.40 Assoc,pc Hospitalists M.DGrant I48.0 I95.1 I47.2 Office Visit 03/13/2017 2:31p [facility] Steve Baker, 72115 I63.40 M.D. I10 I48.91 Office Visit 03/13/2017 3:42p [facility] Barbi Dhillonhn, 24141 I63.40 Assoc,pc Hospitalists M.D. I48.0 I95.0 G20 Office Visit 03/12/2017 2:31p [facility] Steve Baker, 71646 I63.40 M.D. I10 I48.91 R55 Office Visit 03/12/2017 3:41p [facility] [address] I63.40 Hospitalists I48.0 G20 I95.1 Office Visit 02/20/2017 11:45a [facility] Azalea Junior, 51012 G20 Services [facility] Addison I95.1 Office Visit 02/03/2017 1:00p [facility] Mittal, 66515 I48.0 [facility] Addison, FAC, FASNC Office Visit 2017 9:20a [facility] Internal Medicine - Douglas Damon, 87891 M51.16 Christine Jaime I48.0 Office Visit 12/25/2016 10:40a [facility] Internal Douglas Damon, 54301 K29.61 Medicine - Christine Jaime M51.16 I48.0 I12.9 N18.9 Office Visit 11/22/2016 10:00a [facility] Internal Medicine Douglas Damon M.D. 78582 R05 - [address] Office Visit 11/20/2016 8:20a [facility] Internal Medicine Douglas Damon M.D. 79129 R05 - [place] D64.9 I10 Office Visit 11/13/2016 9:20a [facility] Internal Medicine Douglas Damon M.D. 50590 I10 - [place] I95.1 I48.0 K25.0 J20.9 Office Visit 11/13/2016 11:15a [facility] Azalea Junior, 99254 I95.1 Services Of Christin Jaime G20 Office Visit 11/06/2016 10:15a [facility] Young Mittal M.D., 86247 I48.0 [facility], [facility] I49.5 Z95.0 I47.2 R94.31 Office Visit 11/01/2016 1:21p [facility] Vannessa De La Paz, 93969 K92.2 Assoc,pc [employer] Hospitalists R55 D64.9 G20 Office Visit 10/31/2016 1:20p [facility] Vannessa De La Paz, 44763 K92.2 Assoc,pc [employer] Hospitalists R55 D64.9 G20 Office Visit 10/30/2016 1:19p [facility] Vannessa De La Paz, 31835 K92.2 Assoc,pc [employer] Hospitalists R55 D64.9 G20 Office Visit 10/30/2016 2:53p [facility] [address] I95.1 G20 Office Visit 10/29/2016 1:19p [facility] [address] K92.2 Hospitalists D64.9 G20 R55 Office Visit 10/29/2016 2:52p [facility] [address] I95.1 G20 Office Visit 10/28/2016 10:07a [facility], Edda Marie, MATTHIEU 28631 K92.2 Hospitalists D64.9 G20 R55 Office Visit 10/27/2016 10:06a [facility], Edda Marie, MATTHIEU 16807 K92.2 Hospitalists D64.9 G20 R55 Office Visit 10/27/2016 1:52p [facility] Gustavo Izquierdo M.D. 60629 I47.2 R55 Office Visit 10/26/2016 10:06a [facility], [place] [address] K92.2 Hospitalists D64.9 G20 R55 Office Visit 10/26/2016 1:53p [facility] Gustavo Izquierdo M.D. 44757 R55 I48.0 I47.2 Office Visit 10/25/2016 10:05a [facility], Edda Marie, MATTHIEU 55490 K92.2 Hospitalists D64.9 G20 R55 Office Visit 10/24/2016 10:05a [facility], Edda Marie, MATTHIEU 65225 K92.2 Hospitalists D64.9 G20 Office Visit 10/23/2016 10:04a [facility], Dafne Lord N.P. 07220 K92.2 Hospitalists D64.9 G20 Office Visit 09/23/2016 3:00p [facility] [place] [address] I10 Christine S09.90xA Office Visit 08/22/2016 1:45p [facility] Azalea Junior, 89478 G20 Services Of Christin Jaime G25.81 G43.009 M25.532 R29.6 Office Visit 08/07/2016 9:40a [facility] Internal Medicine Douglas Damon, 88088 M54.5 - Christine Jaime I25.9 Z23 Office Visit 07/24/2016 4:40p [facility] Internal Medicine Douglas Damon, 68463 M17.0 - [place] M.D. Office Visit 07/17/2016 10:00a [facility] Internal Medicine [place] Thaddeusperri, 20753 M54.5 - [place] M.D. G20 I48.0 Office Visit 06/21/2016 9:30a [facility] Azalea Junior, 05794 G20 Services Of [employer] M.D. G25.81 M54.5 M79.661 S80.811S Office Visit 05/01/2016 11:00a [facility] Joey Bull, 05114 I49.5 [employer] M.D. Z95.0 Office Visit 04/09/2016 10:15a [facility] Azalea Junior, 68239 G20 Services Of [employer] M.D. G25.81 R40.0 Office Visit 02/21/2016 9:15a [facility] Mittal, 20397 I48.0 [employer] M.D., FAC, [facility] Office Visit 10/19/2015 10:45a [facility] Azalea Junior, 82731 G20 Services Of [employer] M.D. G25.81 Office Visit 06/15/2015 10:15a [facility] Azalea Junior, 61585 G20 Services Of [employer] M.D. G25.81 R42 Office Visit 03/14/2015 1:45p [facility] Mittal, 26023 427.31 [employer] M.D., FAC, [facility] Office Visit 02/09/2015 9:45a [facility] Azalea Junior, 94263 332.0 Services Of [employer] M.D. 333.94 783.21 Office Visit 10/13/2014 10:15a [facility] Azalea Junior, 45660 332.0 Services Of [employer] M.D. 333.94 Office Visit 08/03/2014 1:45p [facility] Young Mittal, 01309 427.31 M.D., FAC, [facility] Office Visit 06/28/2014 9:45a [facility] Azalea Junior, 02207 332.0 Services Of [employer] M.D. 333.94 Office Visit 08/26/2013 1:15p [facility] Azalea Junior, 85082 332.0 Services Of [employer] M.D. 333.94 729.1 Office Visit 07/12/2013 11:45a [facility] Mittal, 84478 785.1 [employer] M.D., FACC, [facility] Office Visit 07/09/2013 9:30a [facility] Azalea Junior, 19847 332.0 Services Of [employer] M.D. Office Visit 04/23/2013 9:45a [facility] Young Dunlap Mittal, 02439 427.81 [employer] M.D., FACC, FASNH Office Visit 03/12/2013 11:00a [facility] Azalea Junior, 74938 332.0 Services Of [employer] M.D. Office Visit 12/08/2012 11:30a [facility] Azalea Junior, 13031 332.0 Services Of [employer] M.D. Office Visit 11/16/2012 8:45a [facility] Dunlap Mittal, 65528 414.9 [employer] M.D., FACC, [facility] Office Visit 10/12/2012 11:15a [facility] Youngdelphine Dunlap Mittal, 47940 427.31 [employer] M.D., FACC, [facility] Office Visit 08/28/2012 8:15a [facility] Youngdelphine Dunlap Mittal, 68376 414.9 [employer] M.Von, [facility], [facility] 427.31 Office Visit 05/29/2012 3:00p [facility] Azalae Junior, 69515 332.0 Services Of [employer] M.D. Office Visit 09/09/2006 3:30p [facility] Services Dao Ceballos, 26213 721.0 Of [employer] M.D. 721.3 Plan of Care Future Appointment(s):05/27/2018 1:40 pm - Douglas Damon M.D. at [facility] Internal Medicine [facility]05/26/2018 10:00 am - Ica Pacer Schedule at [facility]05/29/2018 10:00 am - Aamir Ross M.D. at [facility]05/06/2018 - Eva Varn, N.P.I10 Essential (primary ) hypertensionNew Medication:Lisinopril 10 mgComments:Your blood pressure is too high. I have added another medication to help lower it, Lisinopril 50 mg.Take 1 tablet daily.Follow up:HTN f/u [address] Whyte07.89 Other chest painComments:For your chest pain, I want you to follow up with Dr Mittal. I have ordered a chest Xray. I will contact you with your results.Referral:Young Mittal MD, FACC, FASNC, Cardiovsclr CtsejioQ22.93 Unspecified hearing loss, bilateralNew Orders:Hearing evaluation and treatmentComments:I have ordered a hearing test for you at the [facility].R60.0 Localized edemaComments:To evaluate the swelling in your ankles I have ordered some blood work. I will contact you with yourresults.
[2018-05-08 16:56] LABS: EGFR Non-African American 54.6 (>60)
[2018-05-08] MEDS ORDERED: Acetaminophen TAB* 325 MG PO PRN (17:48)
[2018-05-08] MEDS ORDERED: Al Hydrox/Mg Hydrox/Simet LIQ* 30 ML UDC PO PRN (17:48)
[2018-05-08] MEDS ORDERED: Magnesium Oxide TAB* 400 MG PO SCH (18:00)
--- NOTE | 2018-05-08 18:19 | ED ---
HPI Chest Pain - HPI Summary HPI Summary: An 78 y/o F presents to ED referred from Dr. Mittal's office for unstable angina ; he recommended that the pt be admitted. The pt states having CP described as achy, "soreness" that had resolved at bedside. Three weeks ago, the pt broke a rib and was seen at [facility]. She tripped on a pencil and fell onto her walker. She also states that 2-3 days ago, she fell and hit her head which bled a little. She did not seek medical attention for that. Pt denies dizziness and head pain at bedside. She has not taken aspirin today. - History of Current Complaint Chief Complaint: EDChestPainROMI Time Seen by Provider: 05/08/18 16:09 Hx Obtained From: Patient, Other: - Dr. Mittal Onset/Duration: Started Hours Ago, Resolved Timing: Intermittent Initial Severity: Moderate Current Severity: Mild Pain Intensity: 2 Pain Scale Used: 0-10 Numeric Chest Pain Location: Diffuse Character: Dull/Aching - and soreness Associated Signs and Symptoms: Positive: Other: - neg: head pain. Negative: Dizziness - Additional Pertinent History Primary Care Physician: [id number] - Allergy/Home Medications Allergies/Adverse Reactions: Allergies Allergy/AdvReac Type Severity Reaction Status Date / Time dofetilide [From Tikosyn] Allergy Unknown Verified 05/08/18 16:13 Reaction Details Penicillins Allergy Hives Verified 05/08/18 16:13 crystal light Allergy Airway Uncoded 05/08/18 16:13 Obstruction Home Medications: Home Medications Acetaminophen [Acetaminophen ER] 650 mg PO Q4HR PRN 05/08/18 [History Confirmed 05/08/18] Lisinopril TAB* [Prinivil TAB*] 10 mg PO DAILY 05/08/18 [History Confirmed 05/08] Omeprazole CAP* [Prilosec CAP* 20 MG] 40 mg PO BID 05/08/18 [History Confirmed 05/08/18] amLODIPine TAB* [Norvasc 5 mg TAB*] 5 mg PO QAM 05/08/18 [History Confirmed ] PMH/Surg Hx/FS Hx/Imm Hx Previously Healthy: No Endocrine/Hematology History: Reports: Hx Blood Transfusions - current visit, Hx Anemia - current Denies: Hx Diabetes, Hx Thyroid Disease Cardiovascular History: Reports: Hx Hypertension, Hx Pacemaker/ICD - RIGHT SIDE , Hx Syncope, Other Cardiovascular Problems/Disorders - RECENT STOKE 3 WEEKS AGO Denies: Hx Angina, Hx Coronary Artery Disease, Hx Hypercholesterolemia, Hx Myocardial Infarction, Hx Peripheral Vascular Disease Respiratory History: Denies: Hx Asthma, Hx Chronic Obstructive Pulmonary Disease (COPD), Other Respiratory Problems/Disorders GI History: Reports: Hx Gastroesophageal Reflux Disease - HISTORY OF, Hx Ulcer - OCTOBER 2016 Musculoskeletal History: Reports: Hx Arthritis, Hx Rheumatoid Arthritis, Hx Back Problems Denies: Hx Osteoporosis Sensory History: Reports: Hx Contacts or Glasses Denies: Hx Hearing Aid Opthamlomology History: Reports: Hx Contacts or Glasses Neurological History: Reports: Hx Migraine, Hx Transient Ischemic Attacks (TIA) , Other Neuro Impairments/Disorders - HISTORY OF PARKINSONS Denies: Hx Headaches, Hx Seizures - Cancer History Cancer Type, 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 - Surgical History Surgery Procedure, Year, and Place: skin, hysterectomy- one ovary; appe; pacemaker; heart scraped after infection Hx Anesthesia Reactions: No - Immunization History Date of Tetanus Vaccine: UTD Date of Influenza Vaccine: 2015 Infectious Disease History: No Infectious Disease History: Denies: Hx Clostridium Difficile, Hx Hepatitis, Hx Human Immunodeficiency Virus (HIV), Hx of Known/Suspected MRSA, Hx Shingles, Hx Tuberculosis, Hx Known/ Suspected VRE, Hx Known/Suspected VRSA, History Other Infectious Disease, Traveled Outside the [place] in Last 30 Days - Family History Known Family History: Positive: Cardiac Disease, Hypertension, Other - CA - Social History Occupation: Retired Lives: Alone Alcohol Use: Rare Hx Substance Use: No Substance Use Type: Reports: None Hx Tobacco Use: No Smoking Status (MU): Never Smoked Tobacco Review of Systems Negative: Fever, Chills Negative: Erythema Negative: Sore Throat Positive: Chest Pain, Other - unstable angine Negative: Shortness Of Breath, Cough Negative: Abdominal Pain, Vomiting, Nausea Positive: Other - neg: head pain. Negative: Myalgia, Edema Negative: Rash Neurological: Other - neg: dizziness All Other Systems Reviewed And Are Negative: Yes Physical Exam - Summary Physical Exam Summary: Constitutional: Well-developed, Well-nourished, Alert. (-) Distressed Skin: Warm, Dry HENT: Normocephalic; Atraumatic Eyes: Conjunctiva normal Neck: Musculoskeletal ROM normal neck. (-) JVD, (-) Stridor, (-) Tracheal deviation Cardio: Rhythm regular, rate normal, Heart sounds normal; Intact distal pulses; The pedal pulses are 2+ and symmetric. Radial pulses are 2+ and symmetric. (-) Murmur Pulmonary/Chest wall: Effort normal. (-) Respiratory distress, (-) Wheezes, (-) Rales Abd: Soft, (-) epigastric tenderness, (-) Distension, (-) Guarding, (-) Rebound. Musculoskeletal: (-) Edema, No reproducible pain. Lymph: (-) Cervical adenopathy Neuro: Alert, Oriented x3 Psych: Mood and affect Normal Triage Information Reviewed: Yes Vital Signs On Initial Exam: Initial Vitals Temp Pulse Resp BP Pulse Ox 97.4 F 97 22 136/109 100 05/08/18 16:10 05/08/18 16:10 05/08/18 16:10 05/08/18 16:10 05/08/18 16:10 Vital Signs Reviewed: Yes Diagnostics - Vital Signs Vital Signs Temp Pulse Resp BP Pulse Ox 05/08/18 17:11 92 20 144/107 100 05/08/18 17:00 90 17 100 05/08/18 16:41 99 16 128/79 92 05/08/18 16:11 99 22 136/109 100 05/08/18 16:10 97.4 F 97 22 136/109 100 - Laboratory Lab Results: Lab Results 05/08/18 05/08/18 05/08/18 Range/Units 16:22 16:22 16:22 WBC 7.1 (3.5-10.8) 10^3/ul RBC 4.06 (4.00-5.40) 10^6/ul Hgb 12.7 (12.0-16.0) g/dl Hct 38 (35-47) % MCV 94 (80-97) fL MCH 31 (27-31) pg MCHC 33 (31-36) g/dl RDW 15 (10.5-15) % Plt Count 299 (150-450) 10^3/ul MPV 8.3 (7.4-10.4) um3 Neut % (Auto) 76.8 (38-83) % Lymph % (Auto) 14.0 L (25-47) % Barren % (Auto) 8.2 H (0-7) % Eos % (Auto) 0.4 (0-6) % Baso % (Auto) 0.6 (0-2) % Absolute Neuts (auto) 5.5 (1.5-7.7) 10^3/ul Absolute Lymphs (auto) 1.0 (1.0-4.8) 10^3/ul Absolute Monos (auto) 0.6 (0-0.8) 10^3/ul Absolute Eos (auto) 0 (0-0.6) 10^3/ul Absolute Basos (auto) 0 (0-0.2) 10^3/ul Absolute Nucleated RBC 0 10^3/ul Nucleated RBC % 0 D-Dimer, Quantitative (Less Than 230) ng/mL Sodium 141 (135-145) mmol/L Potassium 3.6 (3.5-5.0) mmol/L Chloride 108 (101-111) mmol/L Carbon Dioxide 26 (22-32) mmol/L Anion Gap 7 (2-11) mmol/L BUN 30 H (6-24) mg/dL Creatinine 0.98 H (0.51-0.95) mg/dL Est GFR ( Amer) 66.1 (>60) Est GFR (Non-Af Amer) 54.6 (>60) BUN/Creatinine Ratio 30.6 H (8-20) Glucose 112 H (70-100) mg/dL Lactic Acid 1.0 (0.5-2.0) mmol/L Calcium 9.4 (8.6-10.3) mg/dL Total Bilirubin 0.50 (0.2-1.0) mg/dL AST 11 L (13-39) U/L ALT 3 L (7-52) U/L Alkaline Phosphatase 90 (34-104) U/L Troponin I 0.00 (<0.04) ng/mL Total Protein 7.4 (6.4-8.9) g/dL Albumin 4.3 (3.2-5.2) g/dL Globulin 3.1 (2-4) g/dL Albumin/Globulin Ratio 1.4 (1-3) 05/08/18 Range/Units 16:22 WBC (3.5-10.8) 10^3/ul RBC (4.00-5.40) 10^6/ul Hgb (12.0-16.0) g/dl Hct (35-47) % MCV (80-97) fL MCH (27-31) pg MCHC (31-36) g/dl RDW (10.5-15) % Plt Count (150-450) 10^3/ul MPV (7.4-10.4) um3 Neut % (Auto) (38-83) % Lymph % (Auto) (25-47) % Barren % (Auto) (0-7) % Eos % (Auto) (0-6) % Baso % (Auto) (0-2) % Absolute Neuts (auto) (1.5-7.7) 10^3/ul Absolute Lymphs (auto) (1.0-4.8) 10^3/ul Absolute Monos (auto) (0-0.8) 10^3/ul Absolute Eos (auto) (0-0.6) 10^3/ul Absolute Basos (auto) (0-0.2) 10^3/ul Absolute Nucleated RBC 10^3/ul Nucleated RBC % D-Dimer, Quantitative < 200 (Less Than 230) ng/mL Sodium (135-145) mmol/L Potassium (3.5-5.0) mmol/L Chloride (101-111) mmol/L Carbon Dioxide (22-32) mmol/L Anion Gap (2-11) mmol/L BUN (6-24) mg/dL Creatinine (0.51-0.95) mg/dL Est GFR ( Amer) (>60) Est GFR (Non-Af Amer) (>60) BUN/Creatinine Ratio (8-20) Glucose (70-100) mg/dL Lactic Acid (0.5-2.0) mmol/L Calcium (8.6-10.3) mg/dL Total Bilirubin (0.2-1.0) mg/dL AST (13-39) U/L ALT (7-52) U/L Alkaline Phosphatase (34-104) U/L Troponin I (<0.04) ng/mL Total Protein (6.4-8.9) g/dL Albumin (3.2-5.2) g/dL Globulin (2-4) g/dL Albumin/Globulin Ratio (1-3) Result Diagrams: 05/08/18 16:22 05/08/18 16:22 Lab Statement: Any lab studies that have been ordered have been reviewed, and results considered in the medical decision making process. - Radiology CXR Xray Interpretation: No Acute Changes - IMPRESSION: No active cardiopulmonary dz Radiology Interpretation Completed By: Radiologist - EKG 1639 EKG Rhythm: Atrial Fibrillation - 95 bpm EKG Interpretation: no STEMI. New T-wave inversion in V4-V6 Chest Pain Course/Dx - Diagnoses Provider Diagnoses: Unstable angina - Provider Notifications Discussed Care Of Patient With: Barbi Goff - hospitalist Time Discussed With Above Provider: 18:18 Instructed by Provider To: Admit As Inpatient Discharge - Sign-Out/Discharge Documenting (check all that apply): Patient Departure - ADM - Discharge Plan Disposition: ADMITTED TO [facility] - Attestation Statements Document Initiated by Scribe: Yes Documenting Scribe: Maryanne Sherwood Provider For Whom Scribe is Documenting (Include Credential): Dr. Chin Herron MD Scribe Attestation: I, Maryanne Sherwood, scribed for Dr. Chin Herron MD on 05/08/18 at 1903.
[2018-05-08] MEDS ORDERED: Carbidopa/Levodop 25/100 MG TAB(*) PO SCH (20:00)
[2018-05-08] MEDS: Metoprolol Tartrate TAB* 50 mg PO SCH (20:23)
[2018-05-08] MEDS: Omeprazole CAP* 20 MG PO SCH (20:23)
[2018-05-08] MEDS: CMC: Dabigatran CAP(NF) 75 MG CAP PO SCH (20:23)
--- NOTE | 2018-05-08 22:26 | HP ---
CC: Dr. Damon; Dr. Junior; Dr. Mittal; Dr. Sequeira; Dr. Baker; Dr. Menendez; Dr. Izquierdo * HISTORY AND PHYSICAL: DATE OF ADMISSION: 05/08/18 PRIMARY CARE PROVIDER: Dr. Damon. CHIEF COMPLAINT: Chest pain, sent from Dr. Mittal's office. HISTORY OF PRESENT ILLNESS: Liudmila Phelan is an 78-year-old female with history of chronic atrial fibrillation, who has a history of gastric erosions in December 2017 as well as TIA in December 2017 as well as Parkinson's with dysautonomia, and orthostatic hypotension, on Florinef, status post pacemaker placement and with history of paroxysmal left ventricular tachycardia who was seen by Dr. Damon on 05/06/18 and complained of chest pain. The chest pain had been present ever since she broke her ribs at the end of February 2018. She stated that she noted when she was walking and tired, her pain was somewhat more pronounced , but it was definitely less intense than when she fell and broke her ribs. She complains of pain being pleuritic and it feels "like an ache" at 3/10. It is basically constant, but worse when she takes a deep breath. Dr. Damon directed the patient to see Dr. Mittal, who saw the patient today, looked at the EKG, showed lateral T wave inversion and sent the patient to the ED for evaluation. Here, her status is unchanged. Once again, dull pain, pleuritic with point tenderness over the left side of the patient's anterior rib cage. The patient's initial cardiac workup with troponins is unremarkable, although the patient does have EKG changes in the lateral leads. She is going to be placed on overnight observation with a diagnosis of chest pain to rule out ischemia. PAST MEDICAL HISTORY: 1. History of chronic atrial fibrillation, on Pradaxa. 2. History of chronic gastrointestinal bleed. 3. History of dyslipidemia. 4. History of CVA with residual left-sided weakness. 5. History of TIA in December 2017. 6. 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 7. Parkinson's. 8. Diastolic heart failure. 9. Paroxysmal ventricular tachycardia. 10. History of pacemaker. 11. Appendectomy. 12. Hysterectomy. 13. Cataract surgery bilaterally. 14. Left eye laser surgery. MEDICATIONS: At home include: 1. Aspirin 81 mg daily. 2. Norvasc 5 mg daily. 3. Omeprazole 40 mg b.i.d. 4. Sinemet 25/100 two tablets at 8 a.m., one and a half tablets at noon, 1 tablet at 4 p.m., 2 tablets at 8 p.m. 5. Metoprolol tartrate 50 mg b.i.d. 6. Mag-ox 400 mg daily. 7. Florinef 0.1 mg daily. 8. Acetaminophen on a p.r.n. basis. 9. Lisinopril 10 mg daily. 10. Pradaxa 75 mg b.i.d. ALLERGIES: Include PENICILLIN, CRYSTAL LIGHT, and TIKOSYN. FAMILY HISTORY: Father at the age of 71 secondary to MA and mother at the age of the 68 secondary to heart attack also. Daughter has history of breast cancer as well as sister with lung cancer. Father had throat cancer. SOCIAL HISTORY: The patient lives alone. She just sold her house to a family that agreed for the patient to live in the apartment adjacent to the house until she dies. She takes care for her own cooking and cleaning. She ambulates with a rolling walker. She denies any tobacco, alcohol, or drug use. Her surrogate decision maker is her daughter, Celena. REVIEW OF SYSTEMS: Positive for frequent naps and generalized fatigue. Positive for dyspnea on exertion. Positive for mild leg edema. All the remaining 12 systems were reviewed with the patient and were otherwise negative. PHYSICAL EXAMINATION GENERAL: The patient is a very pleasant 78-year-old female, who is in no acute distress. Alert, awake, and oriented x3. VITAL SIGNS: Blood pressure of 144/107, heart rate of 96 and irregularly irregular, respiratory rate 20, oxygen saturation 100% on room air, temperature 97.4. HEENT: Head: Atraumatic, normocephalic. Eyes: Pupils are equal, reactive to light and accommodation. Oropharynx clear. Mucosa moist. NECK: Supple. No JVD, no bruits bilaterally. RESPIRATORY: Clear to auscultation bilaterally. CARDIOVASCULAR: Irregularly irregular rhythm. No murmur. ABDOMEN: Soft, nontender. Bowel sounds present in all 4 quadrants. EXTREMITIES: There is trace bilateral pedal edema. Pulses are +2 bilaterally. There is no clubbing, cyanosis. NEUROLOGIC: On neuro evaluation, speech is clear. Cranial nerves II through XII grossly intact. Motor strength is 5/5 in bilateral upper extremities and 4+ /5 in left lower extremity, 5/5 in the right lower extremity. PSYCHIATRIC: Oriented x3. Very pleasant, cooperative with evaluation with no evidence of anxiety, depression. SKIN: No ecchymotic areas or rashes noted. LABORATORY DATA/DIAGNOSTIC STUDIES: Laboratory data showed white blood cell count of 7.1, hemoglobin of 12.7, hematocrit of 38, and platelets of . D-dimer was below 200. Sodium was 141, potassium 3.6, chloride 108, carbon dioxide 26, BUN 30, creatinine 0.98. Liver function tests were unremarkable. Troponin of 0. Lactic acid of 1. The patient's portable chest x-ray showed no acute cardiopulmonary abnormality. The patient's EKG showed atrial fibrillation with inverted T waves in lateral leads. Those changes were more pronounced than prior. ASSESSMENT AND PLAN: 1. In regards to the patient's chest pain. It appears to be pleuritic and related to the patient's rib fracture that occurred in February 2018. Nevertheless , the patient has EKG changes and has a history of worsening fatigue and dyspnea with exertion. At this point, Dr. Mittal sent the patient for evaluation and states stress test on Friday. Unfortunately today is Friday and we do not have stress test performed over the weekend. The patient wishes to go home tomorrow. I will ask Dr. Izquierdo to see the patient in consultation. For the time being, we will place the patient on observation on telemetry monitored bed and follow up troponins and EKG in the morning. 2. For DVT prophylaxis, the patient is already on Pradaxa. 3. For history of Parkinson's, Sinemet is going to be continued. 4. For history of orthostatic hypotension and dysautonomia, the patient is going to be continued on Florinef. 5. For history of gastric ulcerations, the patient is going to be continued on Prilosec as previously taken. 6. The patient's code status is do not resuscitate and her surrogate is her daughter as mentioned above. TIME SPENT: Approximately 62 minutes were spent on admission of this patient, more than half of that time was spent [id number] with the patient during the interview and physical exam. [id number]/[facility] #: [id number] MTDD
[2018-05-09] MEDS ORDERED: Carbidopa/Levodop 25/100 MG TAB(*) PO SCH ×3 (08:00→16:00)
[2018-05-09] MEDS: Metoprolol Tartrate TAB* 50 mg PO SCH (08:36)
[2018-05-09] MEDS: CMC: Dabigatran CAP(NF) 75 MG CAP PO SCH (08:36)
[2018-05-09] MEDS: Omeprazole CAP* 20 MG PO SCH (08:36)
[2018-05-09] MEDS ORDERED: Fludrocortisone Acetate TAB* 0.1 MG PO SCH (09:00)
[2018-05-09] MEDS ORDERED: Lisinopril TAB* 10 MG PO SCH (09:00)
[2018-05-09] MEDS ORDERED: amLODIPine TAB* 5 MG PO SCH (09:00)
[2018-05-09] MEDS ORDERED: Aspirin 81 mg CHEW TAB* 81 MG TAB.CHEW PO SCH (09:00)
[2018-05-09] MEDS ORDERED: Potassium Chlor TAB* 20 MEQ TAB.ER PO ONE (09:49)
--- NOTE | 2018-05-09 12:26 | RAD ---
INDICATION: Fall in a patient taking Coumadin. COMPARISON: Portable prior brain CTs, most recently dated December 24, 2017 TECHNIQUE: Contiguous axial sections of the brain were obtained from the skull base to the vertex without contrast. FINDINGS: Unless otherwise specified comparisons below reference to December 24, 2017 CT of the brain. The ventricles, cisterns and sulci exhibit symmetrical involutional changes.. There is stable encephalomalacia involving the right temporal and parietal lobes. There is mild to moderate periventricular and subcortical white matter hypoattenuation most consistent with chronic microvascular disease and not substantially changed from the most recent CT of the brain. Otherwise the baez-white matter differentiation is adequately maintained and there is no sulcal effacement. No significant focal abnormality or mass effect is present. There is no evidence for intracranial hemorrhage. No significant focal osseous abnormality is present. The visualized portion of the paranasal sinuses appear clear. The mastoid air cells are well aerated bilaterally. IMPRESSION: Chronic findings as described above without evidence of acute intracranial hemorrhage or other substantial change compared to the most recent December 24, 2017 CT the brain.
[2018-05-09 12:47] VITALS: BP 114/67
--- NOTE | 2018-05-09 19:53 | CONS ---
CC: Dr. Damon; Dr. Mittal CARDIOLOGY CONSULTATION: DATE OF CONSULT: PATIENT OF: Dr. Damon and Dr. Mittal. REQUESTING PROVIDER: Dr. Goff. REASON FOR CONSULT: Abnormal EKG, chest pain. HISTORY OF PRESENT ILLNESS: This is a very pleasant 78-year-old woman with a complex past medical history including chronic AFib, GI bleeds, TIA, orthostatic hypotension, Parkinson's with dysautonomia, pacemaker for tachybrady , history of paroxysmal ventricular tachycardia while on Tikosyn, which was discontinued in October 2016. She has been under some stress lately as she sold her house and moved to an apartment in the house. She says over the last 2 weeks, she has been moving and eating out a lot. She says she has been probably having more salt in her diet than usual. She also fell about a month ago while walking with a walker and injured the left sternocostal area, was told of a fractured rib. She says that she has had some pain with deep inspiration and some tenderness to palpation. She was seen by Dr. Damon a few days ago for routine visiting and when he heard about the pain and saw her elevated blood pressure, she was referred for Dr. Mittal, who saw her yesterday and was concerned about some new lateral ST-T changes that were more pronounced compared to previous. She was referred for admission. She denies any change in her chest pain. She says occasionally with a deep breath or with palpation, it is a little tender. She has been able to get around to her room without a problem. She denies any associated gas, sour taste, shortness of breath, or diaphoresis. She denies orthopnea. She does have chronic dependent edema, which just resolves with elevation of her legs. She denies any syncope or near - syncope. She does say about a week ago, she tripped on a purvis and banged the back of her head on a refrigerator and has a hematoma there. She did not report that to anybody. She reports that she has not checked her blood pressures recently, but they tend to be quite labile. PAST MEDICAL HISTORY: Includes atrial fibrillation, chronic. She has required a pacemaker for tachybrady syndrome. She was having syncopal episodes back in October 2016, was noted to have non-sustained VT. Her Tikosyn was discontinued. She also had a GI bleed at that time and her Pradaxa was held. She subsequently had a CVA in February of 2017, was restarted on anticoagulation. She has Parkinson's, orthostatic hypotension, CVA with left-sided weakness, TIA in December of 2017, diastolic heart failure. She denies diabetes. PAST SURGICAL HISTORY: Includes pacemaker placed and she had to have it removed because of infection around 2007. She had it replaced about a year ago. She has a history of appendectomy, hysterectomy, cataract surgery, and left eye surgery. MEDICATIONS: As an outpatient: 1. She was listed as being on aspirin, but she denies that. 2. Amlodipine 5 mg a day. 3. Omeprazole 40 mg b.i.d. 4. Sinemet 25/100 two daily at 8:00, 1-1/2 tabs at 12, 1 tablet at 1600 and 2 tablets at 2000. 5. Metoprolol 50 mg b.i.d. 6. Magnesium 400 mg a day. 7. Florinef 0.4 mg a day. 8. Lisinopril 10 mg a day. 9. Pradaxa 75 mg b.i.d. In the hospital, she has been continued on those medications. ALLERGIES: Include PENICILLIN, CRYSTAL LIGHT, and TIKOSYN associated with VT. FAMILY HISTORY: Includes a father who at 71 due to an [place], mother at 68 due to heart attack. She has a sister with lung cancer. 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 SOCIAL HISTORY: She lives alone, but just sold her house and the new owners have agreed to let her live in her apartment adjacent to that house until she dies. She takes care of herself, does not drive anymore. She denies alcohol or tobacco use. She has a daughter who is her surrogate decision maker. REVIEW OF SYSTEMS: Review of systems x10 was negative except as above. PHYSICAL EXAM: She is a well-developed, well-nourished female. No apparent distress. Alert and oriented x3. Blood pressures overnight have been from 112/ 70 at mid night to 150/74 at 3 a.m. with 179/94 at 7:36 a.m. before meds. O2 sats 99% on room air. Heart rate is in the 60s to 70s. No significant JVD. Carotids are 2+. Cardiac Exam: S1, S2 without murmurs, gallops, or rubs. Chest was clear. No CVAT. Abdomen: Bowel sounds present, nontender. Femoral pulse intact without bruits. Distal pulse intact. There is trace edema. Negative Homans sign. Motor strength 5/5 bilaterally. Deep tendon reflexes 2/ 4. Alert and oriented x3. DIAGNOSTIC STUDIES/LAB DATA: Her EKG from today revealed atrial fibrillation with a left axis deviation, nonspecific anterolateral ST-T changes, T-wave inversions similar to what was seen yesterday and similar to December of 2017, except there was demand-paced rhythm there. Labs include potassium of 3.6, BUN of 30, creatinine of 0.98. Troponins of 0.00 , 0.00, and 0.01. CBC was normal. Chest x-ray from 05/08/18 revealed no active pulmonary disease. Chest x-ray from 02/24/18 revealed possible nondisplaced fracture of the left lateral 8th rib, trace left pleural effusion, cardiomegaly unchanged and she had a chemical nuclear stress test in August, which revealed a small reversal defect at the distal lateral wall suggestive of ischemia, low risk. IMPRESSION AND PLAN: My impression is that Ms. Phelan has a complicated medical history and now has a chest pain, possibly related to left rib injury, nonspecific EKG change in the setting of labile blood pressures. She also has a history of small area of ischemia on nuclear in the past (08/2017). The EKG changes were nonspecific; the changes could be related to ischemia or to her labile blood pressures. She also has over-indulged in salt and eating out over the last 2 weeks and is under some stress from moving, which may explain some of her labile blood pressures. I did discuss with her the recommendation that she stay here for repeat evaluation for progression of ischemia with a nuclear stress test, however given her lack of anginal-type symptoms, negative troponins , she requested to go home and have her testing as an outpatient. She understands potential risk of ischemia and infarct and , but feels comfortable going home and says she will return if she has recurrent pain. I am also reluctant to change her medicines given her labile blood pressures, but I did recommend the following. 1. I advised her of the risk of leaving before her stress test is done and urged her to follow up with Dr. Mittal and arrange for an outpatient stress test. 2. She is to avoid salt and check her blood pressures at home. 3. I did ask her to avoid excessive exertion and stress, which may be contributing to her labile blood pressures. 4. I would consider repeat echo and stress test in the coming weeks. 5. I would consider possibly a referral for a WATCHMAN device given her risk for bleeding and falling. [id number]/[facility] #: [id number] BHUPENDRA
--- NOTE | 2018-05-10 04:45 | DS ---
CC: Dr. Damon; Dr. Izquierdo; Dr. Mittal. * DISCHARGE SUMMARY: DATE OF ADMISSION: 05/08/18 DATE OF DISCHARGE: 05/09/18 PRIMARY CARE PROVIDER: Dr. Damon. DISCHARGE DIAGNOSIS: Chest pain with so far negative cardiac workup. SECONDARY DIAGNOSES: 1. History of chronic atrial fibrillation, on Pradaxa. 2. History of chronic gastrointestinal bleed. 3. Dyslipidemia. 4. Cerebrovascular accident with residual left-sided weakness. 5. Transient ischemic attack in December 2017. 6. Orthostatic hypotension. 7. 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 8. Parkinson's. 9. History of diastolic heart failure. 10. Paroxysmal ventricular tachycardia status post pacemaker placement. MEDICATION AT DISCHARGE: Unchanged from admission and include, 1. Norvasc 5 mg daily. 2. Omeprazole 40 mg b.i.d. 3. Sinemet 25/100, 2 tablets q.8 a.m. 1-1/2 tablets at noon, 1 tablet at 4 p.m. and 2 tablets at 8 p.m. 4. Metoprolol tartrate 50 mg b.i.d. 5. Mag-Ox 400 mg daily. 6. Florinef 0.1 mg daily. 7. Acetaminophen a p.r.n. basis. 8. Lisinopril 10 mg daily. 9. Pradaxa 75 mg b.i.d. LABORATORY DATA AND STUDIES PERFORMED DURING THE HOSPITAL STAY: Include: The patient's D-dimer was below 200. The patient's troponin ranged from 0 to 0.01. The patient's brain CT obtained to rule out intracranial bleed after her fall in February showed "chronic findings without evidence of acute intracranial hemorrhage or other change compared from most recent December 2017 CT of the brain." CONSULTATION DURING THE HOSPITAL STAY: Included Dr. Izquierdo from Cardiology. HOSPITALIZATION COURSE: Liudmila Phelan is an 78-year-old female with the history as mentioned above who was evaluated by Dr. Mittal's office for chest pain. The chest pain had been ongoing ever since her fall and fractured rib in February 2018. Due to her recent stress with moving, the pain appeared more prominent. It was pleuritic and point tenderness over the left side of the sternum. She saw Dr. Mittal and evaluation as outpatient who sent the patient to the ED for admission and stress test on Friday. The patient was admitted on Friday night. Her troponins were negative and an EKG showed ST depressions and T-wave inversions in lateral leads and appeared to be chronic. Dr. Izquierdo saw the patient in consultation. Although we cannot rule out ongoing angina, at this point, the patient's troponins were negative, an EKG was unremarkable and consistent with prior. The patient did have pleuritic pain and point tenderness on her chest during the evaluation. At this point, the patient was recommended to stay over the weekend for a stress test on Friday, but she wished to leave home and have an outpatient stress test with Dr. Mittal. The patient is going to be discharged home. Recommendation is to follow up with Dr. Mittal for an outpatient stress test. Physical exam at the time of discharge was unchanged from admission. [id number]/[facility] #: [id number] MTDD
== END 2018-05-09 14:38 | disposition home or self-care (01) ==
LOC: ED 15:58 → MEDTELE 17:41
PROVIDERS: ADMIT Internal Medicine; ATTEND Internal Medicine
DX: R07.9 Chest pain, unspecified (principal); I48.91 Unspecified atrial fibrillation; Z79.01 Long term (current) use of anticoagulants; E78.5 Hyperlipidemia, unspecified; I69.354 Hemiplegia and hemiparesis following cerebral infarction affecting left non-dominant side; I95.1 Orthostatic hypotension; G20 Parkinson's disease; I50.30 Unspecified diastolic (congestive) heart failure; Z95.0 Presence of cardiac pacemaker; Z79.899 Other long term (current) drug therapy; Z88.0 Allergy status to penicillin; Z88.8 Allergy status to other drugs, medicaments and biological substances; Z82.49 Family history of ischemic heart disease and other diseases of the circulatory system
CPT/HCPCS: 36415; 70450; 71045; 80053; 83605; 84484; 85025; 85379; 93005; 99282; A9270-GY; G0378

== ENCOUNTER 2018-07-31 12:42 | Emergency (ER) | payer MEDICARE ==
--- OUTSIDE RECORDS SUMMARY | 2018-07-31 12:48 | XMS REPORT | Continuity of Care Document ---
:1940 External Reference #:[id number] Author Name Vicky Cornejo Care Team Providers Name Role Phone Douglas Damon MD Primary Care Physician Unavailable Payers Type Date Identification Numbers Payment Provider Subscriber Effective: 2002 Policy Number: [id number] Medicare Liudmila Phelan PayID: [id number] [address] [place] [address] Policy Number: [id number] [facility] Liudmila Phelan PayID: [id number] [address] [place] [address] Advance Directives Type Date Description Status Comment [facility] Current and Verified Problems Date Description Provider Status Onset: 02/21/2016 Paroxysmal atrial fibrillation Young Mittal M.D., Active [facility], [facility] Onset: 02/09/2015 Parkinson's disease Azalea [...] Chronic atrial fibrillation [facility] M.D., [facility] Onset: 08/27/2017 Disorder of skin and/or Douglas Damon M.D. Active subcutaneous tissue Onset: 08/27/2017 Abnormal gait Douglas Damon M.D. Active Onset: 09/16/2017 Chest pain [facility] Mittal M.D., [facility] Onset: 10/15/2017 Mixed hyperlipidemia Douglas Damon M.D. Active Onset: 12/10/2017 Shoulder joint pain Douglas Damon M.D. Active Onset: 12/22/2017 Sinus node dysfunction Aamir Ross M.D. Active Onset: 12/22/2017 History of cerebrovascular Aamir Ross M.D. 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 Active Onset: 08/03/2014 Atrial fibrillation Young Mittal M.D., [facility] Inactive: 06/16/2017 Onset: 06/15/2015 Dizziness Azalea Junior M.D. Inactive Inactive: 06/16/2017 Onset: 11/20/2016 Cough Douglas Damon M.D. Inactive Inactive: 06/16/2017 Family History Date Family Member(s) Problem(s) Comments Father Heart Disease Mother Heart Disease Social History Type Date Description Comments Sex Unknown Marital Status Lives With Alone lives downstairs from a family in her house Occupation Retired ETOH Use Rarely consumes half glass of wine alcohol once or twice a year Tobacco Use Start: Unknown Patient has never smoked Recreational Drug Use Denies Drug Use Smoking Status Reviewed: 07/24/18 Patient has never smoked Exercise Type/Frequency Exercises sporadically ocassionally Allergies, Adverse Reactions, Alerts Date Description Reaction Status Severity Comments 12/08/2012 Penicillin Active Rash 07/17/2016 Zocor Active 10/26/2016 Tikosyn Active Severe NSVT Medications Medication Date Status Form Strength Qnty SIG Indications Ordering Provider Lisinopril 06/10/ Active Tablets 20mg 30tabs 1 by I10 Eva 2018 mouth Varn, every day N.P. Pradaxa 01/01/ Active Capsules 75mg 60caps 1 by Douglas 2018 mouth Thaddeusika twice a , M.D. day Acetaminophen ER 09/08/ Active Tablets ER 650mg 1 tab by Unknown 2018 mouth q4 hours as needed pain Fludrocortisone 04/08/ Active Tablets 0.1mg 30tabs Take One Douglas Acetate 2017 Tablet By Nelson Hicks M.D. Once Daily Metoprolol 11/20/ Active Tablets 50mg 180tab take one I10 Douglas Tartrate 2017 s tablet by Nelson hicks M.D. twice a day Walker 09/09/ Active Misc 1units 4 wheels, Carlos 2017 brakes Amharic, and [employer] seat--for daily use Roller Walker 06/11/ Active Misc use daily G20 Azalea Banks 2015 as selwyn Junior M.D. to prevent falls R29.6 Carbidopa-Levodopa 01/03/2014 Active Tablets 25-100mg 195tabs take 2 Aamir Ross M.D. 8am 1.5 tabs noon 1 tab 4pm 2 tabs 8pm Amlodipine Besylate Active Tablets 5mg 1 Unknown tablet po daily Am Omeprazole Active Capsules DR 40mg 180caps 1 by [facility] mouth Nelson, twice a M.D. day Hydrocodone Active Tablets 5-325mg 1 by Unknown Bitartrate/Acetamin mouth ophen every 12 hrs as needed Lisinopril 05/06/2018 Hx Tablets 10mg 30tabs 1 by I Eva - mouth 1 Varn, N.P. 06/10/2018 every 0 day [place] 12/27/2017 Hx Tablets 5-325mg 1 tab Unknown - tid prn 03/26/2018 Amlodipine Besylate 09/23/2017 Hx Tablets 5mg 90tabs 1 by [facility] - mouth Pachika, 12/29/2017 every M.D. day Amlodipine Besylate 09/18/2017 Hx Tablets 2.5mg 90tabs 1 by Matthew Longoria - mouth [place], 09/23/2017 every M.D.,FACP day Klor-Con M10 07/29/2017 Hx Tablets ER 10Meq 14tabs 1 by Douglas - mouth [place], 09/12/2017 every M.D. day Magnesium-Oxide 07/22/2017 Hx Tablets 400(241.3 90tabs 1 by Matthew Sutherland mg) mg mouth [place], 07/12/2018 every M.D.,FACP evening Klor-Con M10 07/11/2017 Hx Tablets ER 10Meq 14tabs 1 by Matthew Longoria - mouth [place], 07/22/2017 every M.D.,FACP day Amlodipine Besylate 06/16/2017 Hx Tablets 2.5mg 30tabs 1 by Matthew Longoria - mouth [place], 06/16/2017 every M.D.,FACP day Eliquis 04/08/2017 Hx Tablets 2.5mg 60tabs 1 Other - tablet Ordering 04/22/2017 by Provider mouth twice a day. blood thinner . Atorvastatin 04/08/2017 Hx Tablets 40mg 30tabs take Douglas Calcium - one [place], 02/11/2018 tablet M.D. by mouth hs Carafate 02/24/2017 Hx Tablets 1gm 120tabs Take 1 Douglas - Tablet [place], 05/21/2017 By M.D. Mouth AT 6Am , 11Am, 5PM, And 9PM (pt not taking) Iron 01/27/2017 Hx Tablets 325(65Fe) 30tabs 1 by Chase Allen, - mg mouth [employer] 04/22/2017 every day Hydrocodone-Acetami 12/25/2016 Hx Tablets 5-325mg 10tabs 1 tab M Douglas nophen - three 5 [place], 10/15/2017 times a 1 M.D. day as . needed 1 pain 6 Amlodipine Besylate 12/11/2016 Hx Tablets 2.5mg 30tabs Take [facility] - two [place], 05/21/2017 TABLETs M.D. By Mouth Every Morning (no longer taking) Amlodipine Besylate 11/27/2016 Hx Tablets 5mg 30tabs 1 by Douglas - mouth [place], 12/11/2016 every M.D. day Proair Respiclick 11/20/2016 Hx Aerosol 108(90Bas 1units 2 puffs R [facility] - e) 3 times 0 [place], 2017 mcg/Act a day 5 M.D. with spacer Fluticasone 11/20/2016 Hx Suspension 50mcg/Act 9.900ml 2 R Douglas Propionate - sprays 0 [place], 12/25/2016 each 5 M.D. nostril daily Doxycycline Hyclate 11/13/2016 Hx Capsules 100mg 20caps 1 cab J [facility] - twice a 2 [place], 11/22/2016 day 0 M.D. . 9 Prednisone 11/13/2016 Hx Tablets 10mg 20tabs 4 J [facility] - [id number] 2 [place], 11/22/2016 ys 0 M.D. [id number] . ays,2ta 9 [id number] ,1tabxd ay. Losartan 11/12/2016 Hx Tablets 50-12.5mg 30tabs take [facility] Potassium/Hydrochlo - one tab [place], rothiazide 11/13/2016 daily M.D. Famotidine [...] 07/17/2016 Hx Capsules 500mg 180caps 2 tab M Douglas - by 5 [place], 11/05/2016 mouth 4 M.D. three . times a 5 day as needed Clindamycin HCL 05/07/2016 Hx Capsules 150mg 9caps one Joey Bull M.D. 05/13/2016 by mouth three times a day for 3 days Lisinopril 07/08/2014 Hx Tablets 20mg 1/2 Mikal Blevins MD 06/04/2016 by mouth every day Hydrocodone-Acetami 07/08/2014 Hx Tablets 10-325mg 120tabs 1 tab Douglas kc - by Nelson, 07/17/2016 mouth M.DGrant every 6 hours as needed Ropinirole HCL 10/04/2013 Hx Tablets 0.25mg 60tabs 2 PO Azalea Banks - [facility] Sandi, 06/18/2014 M.DGrant Metoprolol 03/05/2013 Hx Tablets ER 100mg 180tabs 1 tab Young Dunlap Succinate ER - 24HR by Addison Mittal, 03/05/2013 mouth FACC, FASNC twice a day Metoprolol Tartrate 03/05/2013 Hx Tablets 100mg 180tabs 1/2 tab Andres Longoria - saúl Lantigua, 11/20/2016 mouth MShane,FACP twice a day 11/06/16 (pt taking 1 po bid s/p [facility] stay) Carbidopa/Levodopa 12/01/2012 Hx Tablets 25-100mg 165tabs take Azalea Banks - 1-1 2 Sandi, 01/03/2014 cap po M.DGrant 4 times daily as directe d (1 [...] Hx Tablets 5mg 30tabs 1 tab Young Dunlap - saúl Mittal M.D., 08/02/2014 mouth FACC, FASNC every day Hydrocodone/Acetami Hx Tablets 5-325mg 40tabs 1 tab Unknown nophen - po qid 08/02/2014 prn Vitamin D3 Hx Capsules 2000Unit 1 by Unknown - mouth 01/22/2016 every day Vitamin B-12 Hx Tablets 1000mcg 1 by Unknown - mouth 12/22/2015 every day Hydrocodone-Acetami Hx Tablets 5-325mg 60tabs 1 by Douglas kc - aron Travisika, 07/25/2016 twice M.D. daily prn. Lisinopril Hx Tablets 10mg 1 by Unknown - mouth 11/05/2016 every day Pain Relief 8 Hour Hx Tablets ER 650mg 1 by Unknown - mouth 12/21/2017 three times a day as needed for pain Sucralfate Hx Tablets 1gm 1 Unknown - tablet 04/28/2017 by mouth at 6am,11a m, 4pm, and 9pm Omeprazole Hx Capsules DR 20mg 60caps take [facility] matthew Travisikara, 01/01/2018 capsule M.D. by mouth twice a [...] Provider Inj, Administered Injection Joey Longoria Regadenoson, Bk Bull M.D. 0.1 MG Technetium TC Administered Injection Joey Longoria 99M 013 Addison Bull Tetrofosmin, Per Unit Dose Up To 40 Millicuries Immunizations CPT Code Status Date Vaccine Reaction Lot # [id number] Given 05/21/2017 Influenza Virus Vaccine, [id number] Quadrivalent, Split, Preservative Free 13405 Given 05/21/2017 Pneumococcal Conjugate [id number] Vaccine 13 Valent For Intramuscular Use 70378 Given 08/07/2016 Zoster (Zostavax) no immediate reaction [id number] noted ... hh Vital Signs Date Vital Result Comment 07/24/2018 11:58am Height 59 inches 4'11" Weight 127.00 lb Heart Rate 98 /min BP Systolic 140 mmHg BP Diastolic 90 mmHg Body Temperature 96.8 F O2 % BldC Oximetry 98 % BMI (Body Mass Index) 25.6 kg/m2 06/10/2018 11:18am Height 59 inches 4'11" Weight 122.00 lb Heart Rate 80 /min BP Systolic 160 mmHg BP Diastolic 41 mmHg Body Temperature 97.1 F O2 % BldC Oximetry 100 % BMI (Body Mass Index) 24.6 kg/m2 05/29/2018 9:49am Height 59 inches 4'11" Weight 122.00 lb Heart Rate 76 /min BP Systolic 116 mmHg BP Diastolic 78 mmHg Respiratory Rate 16 /min BMI (Body Mass Index) 24.6 kg/m2 05/08/2018 2:01pm Height 59 inches 4'11" Weight 124.00 lb with shoes Heart Rate 94 /min BP Systolic Sitting 144 mmHg LA reg cuff BP Diastolic Sitting 76 mmHg LA reg cuff BMI (Body Mass Index) 25.0 kg/m2 Ejection Fraction 50%-55% echo 03/12/17 05/08/2018 1:50pm Height 59 inches 4'11" Ejection Fraction 50%-55% echo 03/12/17 05/06/2018 4:08pm Height 59 inches 4'11" Weight 127.00 lb Heart Rate 91 /min BP Systolic 158 mmHg BP Diastolic 108 mmHg Body Temperature 96.9 F O2 % BldC Oximetry 99 % BMI (Body Mass Index) 25.6 kg/m2 04/06/2018 11:58am Height 59 inches 4'11" Weight 127.00 lb with shoes Heart Rate 80 /min BP Systolic Sitting 120 mmHg Lue reg cuff BP Diastolic Sitting 90 mmHg Lue reg cuff BP Systolic Standing 116 mmHg Lue reg cuff BP Diastolic Standing 82 mmHg Lue reg cuff Respiratory Rate 16 /min BMI (Body Mass Index) 25.6 kg/m2 Ejection Fraction 50-55% date 03/02/17 ECHO 03/27/2018 10:22am Height 59 inches 4'11" Weight 122.00 lb Heart Rate 84 /min BP Systolic 122 mmHg BP Diastolic 88 mmHg Respiratory Rate 20 /min BMI (Body Mass Index) 24.6 kg/m2 02/11/2018 10:58am Weight 118.00 lb 147 with her walker Heart Rate 69 /min BP Systolic Sitting 124 mmHg BP Diastolic Sitting 80 mmHg O2 % BldC Oximetry 97 % 01/01/2018 11:20am Weight 121.00 lb Heart Rate 97 /min BP Systolic 132 mmHg BP Diastolic 84 mmHg Body Temperature 97.8 F O2 % BldC Oximetry 98 % 12/22/2017 9:37am Height 59 inches 4'11" Weight 122.00 lb Heart Rate 72 /min BP Systolic Sitting 106 mmHg BP Diastolic Sitting 76 mmHg Respiratory Rate 15 /min BMI (Body Mass Index) 24.6 kg/m2 12/10/2017 10:55am Height 59 inches 4'11" Weight 127.00 lb Heart Rate 52 /min BP Systolic 110 mmHg BP Diastolic 70 mmHg O2 % BldC Oximetry 83 % BMI (Body Mass Index) 25.6 kg/m2 10/15/2017 10:31am Height 59 inches 4'11" Weight 125.00 lb Heart Rate 70 /min BP Systolic Sitting 148 mmHg BP Diastolic Sitting 92 mmHg O2 % BldC Oximetry 99 % BMI (Body Mass Index) 25.2 kg/m2 09/16/2017 1:42pm Height 59 inches 4'11" Weight 123.00 lb with shoes Heart Rate 64 /min BP Systolic Sitting 152 mmHg Lue reg cuff BP Diastolic Sitting 108 mmHg Lue reg cuff BP Systolic Standing 146 mmHg Lue reg cuff BP Diastolic Standing 102 mmHg Lue reg cuff Respiratory Rate 17 /min BMI (Body Mass Index) 24.8 kg/m2 Ejection Fraction 50-55% date 03/12/17 ECHO 09/12/2017 2:47pm Weight 118.00 lb Heart Rate 69 /min BP Systolic 152 mmHg BP Diastolic 94 mmHg Body Temperature 97.6 F O2 % BldC Oximetry 98 % 08/27/2017 9:37am Weight 123.00 lb Heart Rate 65 /min BP Systolic 120 mmHg BP Diastolic 70 mmHg O2 % BldC Oximetry 98 % 07/18/2017 1:26pm Weight 123.00 lb Heart Rate 88 /min BP Systolic Sitting 132 mmHg BP Diastolic Sitting 80 mmHg O2 % BldC Oximetry 97 % 07/15/2017 3:17pm Height 59 inches 4'11" Weight 123.00 lb Heart Rate 88 /min BP Systolic Sitting 130 mmHg BP Diastolic Sitting 78 mmHg Respiratory Rate 16 /min BMI (Body Mass Index) 24.8 kg/m2 07/15/2017 2:26pm Height 59 inches 4'11" Weight 123.00 lb Heart Rate 92 /min BP Systolic Sitting 134 mmHg Lue reg cuff BP Diastolic Sitting 98 mmHg Lue reg cuff BP Systolic Standing 130 mmHg Lue BP Diastolic Standing 98 mmHg Lue Respiratory Rate 16 /min BMI (Body Mass Index) 24.8 kg/m2 07/02/2017 11:38am Height 59 inches 4'11" Weight 118.00 lb Heart Rate 63 /min BP Systolic Sitting 118 mmHg BP Diastolic Sitting 78 mmHg Body Temperature 98.2 F O2 % BldC Oximetry 98 % BMI (Body Mass Index) 23.8 kg/m2 06/18/2017 11:36am Height 59 inches 4'11" Weight 118.50 lb Heart Rate 76 /min BP Systolic 110 mmHg BP Diastolic 70 mmHg Body Temperature 98.0 F O2 % BldC Oximetry 97 % BMI (Body Mass Index) 23.9 kg/m2 05/21/2017 9:07am Height 59 inches 4'11" Weight 120.50 lb Heart Rate 64 /min irregular BP Systolic 100 mmHg BP Diastolic 62 mmHg BMI (Body Mass Index) 24.3 kg/m2 05/05/2017 9:04am Height 59 inches 4'11" Weight 125.00 lb with shoes Heart Rate 84 /min irreg BP Systolic Sitting 130 mmHg Lue reg cuff BP Diastolic Sitting 80 mmHg Lue reg cuff BP Systolic Standing 134 mmHg Lue reg cuff BP Diastolic Standing 90 mmHg Lue reg cuff Respiratory Rate 17 /min BMI (Body Mass Index) 25.2 kg/m2 Ejection Fraction 50-55% date 03/12/17 ECHO 04/22/2017 2:05pm Height 59 inches 4'11" Weight 125.00 lb Heart Rate 94 /min BP Systolic 148 mmHg BP Diastolic 96 mmHg Body Temperature 97.3 F O2 % BldC Oximetry 99 % BMI (Body Mass Index) 25.2 kg/m2 02/20/2017 11:50am Height 59 inches 4'11" Weight 125.00 lb Heart Rate 88 /min BP Systolic Sitting 130 mmHg BP Diastolic Sitting 90 mmHg Respiratory Rate 16 /min BMI (Body Mass Index) 25.2 kg/m2 02/03/2017 12:36pm Height 59 inches 4'11" Weight 124.00 lb with shoes Heart Rate 90 /min BP Systolic Sitting 156 mmHg Rue reg cuff BP Diastolic Sitting 102 mmHg Rue reg cuff BP Systolic Standing 140 mmHg Rue reg cuff BP Diastolic Standing 96 mmHg Rue reg cuff Respiratory Rate 16 /min BMI (Body Mass Index) 25.0 kg/m2 Ejection Fraction 55-60% 10/23/2016-echo 2017 9:36am Weight 125.50 lb Heart Rate 78 /min BP Systolic 128 mmHg BP Diastolic 68 mmHg Body Temperature 96.8 F O2 % BldC Oximetry 98 % 12/25/2016 10:29am Weight 127.25 lb Heart Rate 90 /min BP Systolic 128 mmHg BP Diastolic 64 mmHg Body Temperature 96.9 F O2 % BldC Oximetry 98 % 11/22/2016 9:50am Weight 130.00 lb Heart Rate 93 /min BP Systolic Sitting 92 mmHg BP Diastolic Sitting 68 mmHg Body Temperature 97.3 F O2 % BldC Oximetry 98 % 11/20/2016 8:09am Weight 134.50 lb Heart Rate 69 /min BP Systolic 126 mmHg BP Diastolic 80 mmHg Body Temperature 98.2 F O2 % BldC Oximetry 96 % 11/13/2016 10:58am Height 59 inches 4'11" Weight 130.00 lb Heart Rate 76 /min BP Systolic 150 mmHg BP Diastolic 98 mmHg Respiratory Rate 20 /min Pain Level 5 BMI (Body Mass Index) 26.3 kg/m2 11/13/2016 9:29am Weight 133.00 lb Heart Rate 88 /min BP Systolic Sitting 162 mmHg BP Diastolic Sitting 118 mmHg Body Temperature 97.6 F O2 % BldC Oximetry 96 % 11/06/2016 9:29am Height 59 inches 4'11" Weight 135.00 lb w/shoes Heart Rate 70 /min BP Systolic Sitting 176 mmHg LA reg cuff BP Diastolic Sitting 98 mmHg LA reg cuff BP Systolic Standing 152 mmHg LA reg cuff BP Diastolic Standing 80 mmHg LA reg cuff BMI (Body Mass Index) 27.3 kg/m2 Ejection Fraction 55-60% Echo 10/23/16 09/25/2016 9:59am Height 59 inches 4'11" Weight 126.00 lb Heart Rate 62 /min BP Systolic 126 mmHg BP Diastolic 60 mmHg Body Temperature 97.8 F O2 % BldC Oximetry 98 % BMI (Body Mass Index) 25.4 kg/m2 09/23/2016 3:11pm Weight 123.00 lb Heart Rate 63 /min BP Systolic Sitting 164 mmHg BP Diastolic Sitting 110 mmHg Body Temperature 98.4 F O2 % BldC Oximetry 99 % 08/22/2016 1:35pm Height 59 inches 4'11" Weight 131.00 lb Heart Rate 60 /min BP Systolic Sitting 112 mmHg BP Diastolic Sitting 68 mmHg Respiratory Rate 16 /min BMI (Body Mass Index) 26.5 kg/m2 08/07/2016 10:49am Weight 131.00 lb Heart Rate 63 /min BP Systolic 110 mmHg BP Diastolic 78 mmHg Body Temperature 98.3 F O2 % BldC Oximetry 98 % 07/24/2016 4:32pm Weight 129.00 lb with shoes Heart Rate 83 /min BP Systolic Sitting 126 mmHg BP Diastolic Sitting 80 mmHg O2 % BldC Oximetry 98 % 07/17/2016 9:54am Weight 130.00 lb Heart Rate 72 /min BP Systolic Sitting 138 mmHg BP Diastolic Sitting 84 mmHg Respiratory Rate 14 /min O2 % BldC Oximetry 97 % 06/21/2016 9:37am Height 59 inches 4'11" Weight 124.00 lb Heart Rate 68 /min BP Systolic Sitting 140 mmHg BP Diastolic Sitting 80 mmHg Respiratory Rate 16 /min BMI (Body Mass Index) 25.0 kg/m2 05/14/2016 1:22pm Height 59 inches 4'11" Weight 133.00 lb Heart Rate 62 /min BP Systolic Sitting 136 mmHg left arm, reg cuff BP Diastolic Sitting 90 mmHg left arm, reg cuff BP Systolic Standing 118 mmHg left arm, reg cuff BP Diastolic Standing 90 mmHg left arm, reg cuff Respiratory Rate 16 /min BMI (Body Mass Index) 26.9 kg/m2 Ejection Fraction 75% 11/06/12 NLM 05/01/2016 10:51am Height 59 inches 4'11" Weight 135.00 lb w/ shoes Heart Rate 60 /min BP Systolic Sitting 122 mmHg Lue, reg cuff BP Diastolic Sitting 84 mmHg Lue, reg cuff BP Systolic Standing 116 mmHg Lue BP Diastolic Standing 80 mmHg Lue Respiratory Rate 16 /min BMI (Body Mass Index) 27.3 kg/m2 Ejection Fraction 58% as of 02/07/12 echo 04/09/2016 10:52am Height 59 inches 4'11" Weight 126.00 lb Heart Rate 68 /min BP Systolic Sitting 108 mmHg BP Diastolic Sitting 60 mmHg Respiratory Rate 17 /min BMI (Body Mass Index) 25.4 kg/m2 02/21/2016 9:06am Height 59 inches 4'11" Weight 131.00 lb w/ shoes Heart Rate 68 /min reg BP Systolic Sitting 114 mmHg Lue, reg cuff BP Diastolic Sitting 64 mmHg Lue, reg cuff BP Systolic Standing 104 mmHg Lue BP Diastolic Standing 70 mmHg Lue Respiratory Rate 16 /min BMI (Body Mass Index) 26.5 kg/m2 Ejection Fraction 58% as of 02/07/12 echo 10/19/2015 10:44am Height 59 inches 4'11" Heart Rate 68 /min BP Systolic Sitting 118 mmHg BP Diastolic Sitting 82 mmHg Respiratory Rate 16 /min 06/15/2015 10:13am Height 59 inches 4'11" Heart Rate 64 /min BP Systolic Sitting 132 mmHg BP Diastolic Sitting 82 mmHg Respiratory Rate 16 /min 03/14/2015 1:20pm Height 59 inches 4'11" Heart Rate 60 /min BP Systolic Sitting 158 mmHg LA, reg cuff BP Diastolic Sitting 92 mmHg LA, reg cuff BP Systolic Standing 146 mmHg LA BP Diastolic Standing 84 mmHg LA Respiratory Rate 16 /min Ejection Fraction 58% 02/07/2012 02/09/2015 9:37am Height 59 inches 4'11" Weight 132.00 lb Heart Rate 56 /min BP Systolic Sitting 114 mmHg BP Diastolic Sitting 60 mmHg Respiratory Rate 16 /min BMI (Body Mass Index) 26.7 kg/m2 10/13/2014 10:20am Height 59 inches 4'11" Heart Rate 68 /min BP Systolic Sitting 128 mmHg BP Diastolic Sitting 76 mmHg Respiratory Rate 16 /min 08/03/2014 1:15pm Height 59 inches 4'11" Weight 138.00 lb [...] BMI (Body Mass Index) 27.9 kg/m2 06/28/2014 10:12am Height 59 inches 4'11" Weight 147.00 lb Heart Rate 60 /min BP Systolic Sitting 118 mmHg BP Diastolic Sitting 72 mmHg Respiratory Rate 16 /min BMI (Body Mass Index) 29.7 kg/m2 08/26/2013 1:26pm Heart Rate 64 /min BP Systolic Sitting 130 mmHg BP Diastolic Sitting 78 mmHg Respiratory Rate 16 /min 07/12/2013 11:54am Height 59 inches 4'11" Weight 153.00 lb Heart Rate 62 /min BP Systolic Sitting 158 mmHg LA reg cuff BP Diastolic Sitting 112 mmHg LA reg cuff BP Systolic Standing 144 mmHg LA BP Diastolic Standing 86 mmHg LA BMI (Body Mass Index) 30.9 kg/m2 07/09/2013 9:33am Heart Rate 67 /min BP Systolic Sitting 110 mmHg BP Diastolic Sitting 60 mmHg Respiratory Rate 18 /min 03/12/2013 11:00am Height 60 inches 5'0" Weight 155.00 lb Heart Rate 64 /min BP Systolic Sitting 136 mmHg BP Diastolic Sitting 80 mmHg Respiratory Rate 12 /min BMI (Body Mass Index) 30.3 kg/m2 12/08/2012 11:40am Heart Rate 64 /min BP Systolic Sitting 142 mmHg BP Diastolic Sitting 78 mmHg Respiratory Rate 16 /min Results Test Date Facility Test Result H/L Range Note Laboratory test [facility] Surgical Interface SEE RESULT 1 finding [address] [place] [address] [phone] Inr/Protime [facility] Inr 0.90 N 0.77-1.[address] [place] [address] [phone] Lipid Profile [facility] Triglycerides 127 mg/dL 2, 3 (Trig/Chol/HDL) [address] [place] [address] [phone] Cholesterol 151 mg/dL 4 HDL Cholesterol 64.3 mg/dL 5 LDL Cholesterol 61 mg/dL 6 Laboratory test 09/06/2017 [facility] Lactic Acid 0.8 mmol/L N 0.5-2.0 [address] [place] [address] [phone] CBC Auto Diff 09/06/2017 [facility] White Blood 9.1 10^3/uL N 3.5-10.[address] [place] [address] [phone] Red Blood Count 3.57 10^6/uL Low 4.0-5.4 Hemoglobin 11.0 g/dL Low 12.0-16.0 Hematocrit 34 % Low 35-47 Mean Corpuscular Volume 94 fL N 80-97 Mean Corpuscular Hemoglobin 31 pg N 27-31 Mean Corpuscular HGB Conc 33 g/dL N 31-36 Red Cell Distribution Width 15 % N 10.5-15 Platelet Count 128 10^3/uL Low 150-450 Mean Platelet Volume 9 um3 N 7.4-10.4 Abs Neutrophils 6.2 10^3/uL N 1.5-7.7 Abs Lymphocytes 1.8 10^3/uL N 1.0-4.8 Abs Monocytes 0.9 10^3/uL High 0-0.8 Abs Eosinophils 0.2 10^3/uL N 0-0.6 Abs Basophils 0.1 10^3/uL N 0-0.2 Abs Nucleated RBC 0 10^3/uL Granulocyte % 68.3 % N 38-83 Lymphocyte % 19.6 % Low 25-47 Monocyte % 9.6 % High 1-9 Eosinophil % 1.9 % N 0-6 Basophil % 0.6 % N 0-2 Nucleated Red Blood Cells % 0 Comp Metabolic Panel 09/06/2017 [facility] Sodium 139 mmol/L N 133-[address] [place] [address] [phone] Potassium 3.9 mmol/L N 3.5-5.0 Chloride 102 mmol/L N 101-111 Co2 Carbon Dioxide 30 mmol/L N 22-32 Anion Gap 7 mmol/L N 2-11 Glucose 102 mg/dL High 70-100 Blood Urea Nitrogen 25 mg/dL High 6-24 Creatinine 0.95 mg/dL N 0.51-0.95 BUN/Creatinine Ratio 26.3 High 8-20 Calcium 9.8 mg/dL N 8.6-10.3 Total Protein 7.1 g/dL N 6.4-8.9 Albumin 4.1 g/dL N 3.2-5.2 Globulin 3.0 g/dL N 2-4 Albumin/Globulin Ratio 1.4 N 1-3 Total Bilirubin 1.20 mg/dL High 0.2-1.0 Alkaline Phosphatase 293 U/L High 34-104 Alt 11 U/L N 7-52 Ast 33 U/L N 13-39 Egfr Non- 56.7 >60 Egfr 73.0 >60 8 Laboratory test 09/06/2017 [facility] Magnesium 2.0 mg/dL N 1.9-2.7 finding [address] [place] [address] [phone] Troponin-I (TnI) 0.02 ng/mL <0.04 B-Type Natriuretic Peptide BNP 512 pg/mL High 9 Inr/Protime 09/06/2017 [facility] Inr 0.98 N 0.77-1.02 [address] [place] [address] [phone] Laboratory test 09/06/2017 [facility] Partial 29.7 seconds N 26.0-36.3 finding 101 [facility] [place] [address] PTT [phone] Basic Metabolic 07/12/2017 [facility] Sodium 141 mmol/L N 133- 145 Panel [address] [place] [address] [phone] Potassium 3.4 mmol/L Low 3.5-5.0 Chloride 102 mmol/L N 101-111 Co2 Carbon Dioxide 30 mmol/L N 22-32 Anion Gap 9 mmol/L N 2-11 Glucose 121 mg/dL High 70-100 Blood Urea Nitrogen 24 mg/dL N 6-24 Creatinine 0.89 mg/dL N 0.51-0.95 BUN/Creatinine Ratio 27.0 High 8-20 Calcium 9.2 mg/dL N 8.6-10.3 Egfr Non- 61.2 >60 Egfr 78.7 >60 10 Laboratory test 07/12/2017 [facility] Magnesium 1.5 mg/dL Low 1.9-2.7 finding [address] [place] [address] [phone] Inr/Protime 07/12/2017 [facility] Inr 0.99 N 0.89-1.11 [address] [place] [address] [phone] Urinalysis 06/16/2017 [facility] Urine Color Yellow N Profile [address] [place] [address] [phone] Urine Appearance Clear N Urine Specific [place] 1.013 N 1.010-1.030 Urine pH 6.0 N 5-9 Urine Urobilinogen Negative N Negative Urine Ketones Trace Abnormal Negative Urine Protein Negative N Negative Urine Leukocytes Trace Abnormal Negative Urine Blood 1+ Abnormal Negative Urine Nitrite Negative N Negative Urine Bilirubin Negative N Negative Urine Glucose Negative N Negative Urine White Blood Cell 1+(6-10/hpf) Abnormal Absent Urine Red Blood Cell 3+(>10/hpf) Abnormal Absent Urine Bacteria Absent N Absent Urine Squamous Epithelial Cell Present Abnormal Absent Urine Culture And 06/16/2017 [facility] Urine Culture SEE RESULT [address] [place] [address] [phone] CBC Auto Diff 06/15/2017 [facility] White Blood 6.9 10^3/uL N 3.5-[address] Count 0.8 [place] [address] [phone] Red Blood Count 3.71 10^6/uL Low 4.0-5.4 Hemoglobin 11.6 g/dL Low 12.0-16.0 Hematocrit 35 % N 35-47 Mean Corpuscular Volume 93 fL N 80-97 Mean Corpuscular Hemoglobin 31 pg N 27-31 Mean Corpuscular HGB Conc 33 g/dL N 31-36 Red Cell Distribution Width 14 % N 10.5-15 Platelet Count 237 10^3/uL N 150-450 Mean Platelet Volume 9 um3 N 7.4-10.4 Abs Neutrophils 4.6 10^3/uL N 1.5-7.7 Abs Lymphocytes 1.4 10^3/uL N 1.0-4.8 Abs Monocytes 0.7 10^3/uL N 0-0.8 Abs Eosinophils 0.2 10^3/uL N 0-0.6 Abs Basophils 0.1 10^3/uL N 0-0.2 Abs Nucleated RBC 0 10^3/uL N Granulocyte % 66.0 % N 38-83 Lymphocyte % 19.8 % Low 25-47 Monocyte % 10.5 % High 1-9 Eosinophil % 2.7 % N 0-6 Basophil % 1.0 % N 0-2 Nucleated Red Blood Cells % 0 N Inr/Protime 06/15/2017 [facility] Inr 0.98 N 0.89-1.[address] [place] [address] [phone] Laboratory test 06/15/2017 [facility] Partial 26.6 seconds N 26.0-36.[address] [place] [address] PTT [phone] Comp Metabolic 06/15/2017 [facility] Sodium 140 mmol/L N 133- 145 Panel [address] [place] [address] [phone] Potassium 2.8 mmol/L Low 3.5-5.0 Chloride 102 mmol/L N 101-111 Co2 Carbon Dioxide 29 mmol/L N 22-32 Anion Gap 9 mmol/L N 2-11 Glucose 105 mg/dL High 70-100 Blood Urea Nitrogen 24 mg/dL N 6-24 Creatinine 1.02 mg/dL High 0.51-0.95 BUN/Creatinine Ratio 23.5 High 8-20 Calcium 9.4 mg/dL N 8.6-10.3 Total Protein 7.1 g/dL N 6.4-8.9 Albumin 4.3 g/dL N 3.2-5.2 Globulin 2.8 g/dL N 2-4 Albumin/Globulin Ratio 1.5 N 1-3 Total Bilirubin 0.90 mg/dL N 0.2-1.0 Alkaline Phosphatase 267 U/L High 34-104 Alt 6 U/L Low 7-52 Ast 49 U/L High 13-39 Egfr Non- 52.3 N >60 Egfr 67.2 N >60 12 Type & Screen 06/15/2017 [facility] Patient Blood Type O Positive N [address] [place] [address] [phone] Antibody Screen NEGATIVE N Inr/Protime 05/12/2017 [facility] Inr 0.91 N 0.89-1.11 [address] [place] [address] [phone] Laboratory test 05/12/2017 [facility] Partial 27.0 seconds N 26.0-36.[address] [place] [address] PTT [phone] Lactic Acid 1.1 mmol/L N 0.5-2.0 13 CBC Auto Diff 05/12/2017 [facility] White Blood 8.7 10^3/uL N 3.5-10.[address] [place] [address] [phone] Red Blood Count 4.08 10^6/uL N 4.0-5.4 Hemoglobin 12.5 g/dL N 12.0-16.0 Hematocrit 38 % N 35-47 Mean Corpuscular Volume 93 fL N 80-97 Mean Corpuscular Hemoglobin 31 pg N 27-31 Mean Corpuscular HGB Conc 33 g/dL N 31-36 Red Cell Distribution Width 15 % N 10.5-15 Platelet Count 256 10^3/uL N 150-450 Mean Platelet Volume 8 um3 N 7.4-10.4 Abs Neutrophils 6.8 10^3/uL N 1.5-7.7 Abs Lymphocytes 1.2 10^3/uL N 1.0-4.8 Abs Monocytes 0.6 10^3/uL N 0-0.8 Abs Eosinophils 0.1 10^3/uL N 0-0.6 Abs Basophils 0.1 10^3/uL N 0-0.2 Abs Nucleated RBC 0 10^3/uL N Granulocyte % 77.6 % N 38-83 Lymphocyte % 14.0 % Low 25-47 Monocyte % 6.9 % N 1-9 Eosinophil % 0.6 % N 0-6 Basophil % 0.9 % N 0-2 Nucleated Red Blood Cells % 0 N Comp Metabolic Panel 05/12/2017 [facility] Sodium 140 mmol/L N 133-[address] [place] [address] [phone] Potassium 3.0 mmol/L Low 3.5-5.0 Chloride 104 mmol/L N 101-111 Co2 Carbon Dioxide 27 mmol/L N 22-32 Anion Gap 9 mmol/L N 2-11 Glucose 99 mg/dL N 70-100 Blood Urea Nitrogen 17 mg/dL N 6-24 Creatinine 0.92 mg/dL N 0.51-0.95 BUN/Creatinine Ratio 18.5 N 8-20 Calcium 9.5 mg/dL N 8.6-10.3 Total Protein 7.1 g/dL N 6.4-8.9 Albumin 4.2 g/dL N 3.2-5.2 Globulin 2.9 g/dL N 2-4 Albumin/Globulin Ratio 1.4 N 1-3 Total Bilirubin 0.70 mg/dL N 0.2-1.0 Alkaline Phosphatase 101 U/L N 34-104 Alt < 3 U/L Low 7-52 Ast 10 U/L Low 13-39 Egfr Non- 58.9 N >60 Egfr 75.7 N >60 14 Laboratory test 05/12/2017 [facility] Magnesium 2.0 mg/dL N 1.9-2.[address] [place] [address] [phone] Troponin-I (TnI) 0.00 ng/mL N <0.04 TSH (Thyroid Stim Horm) 0.68 mcIU/mL N 0.34-5.60 Laboratory test 03/12/2017 [facility] Lactic Acid 0.8 mmol/L N 0.5-2.0 [address] [place] [address] [phone] CBC Auto Diff 03/12/2017 [facility] White Blood 11.4 High 3.5- 10.[address] Count 10^3/[place] [address] [phone] Red Blood Count 4.12 10^6/uL N 4.0-5.4 Hemoglobin 12.1 g/dL N 12.0-16.0 Hematocrit 38 % N 35-47 Mean Corpuscular Volume 92 fL N 80-97 Mean Corpuscular Hemoglobin 30 pg N 27-31 Mean Corpuscular HGB Conc 32 g/dL N 31-36 Red Cell Distribution Width 18 % High 10.5-15 Platelet Count 279 10^3/uL N 150-450 Mean Platelet Volume 8 um3 N 7.4-10.4 Abs Neutrophils 9.5 10^3/uL High 1.5-7.7 Abs Lymphocytes 1.1 10^3/uL N 1.0-4.8 Abs Monocytes 0.7 10^3/uL N 0-0.8 Abs Eosinophils 0 10^3/uL N 0-0.6 Abs Basophils 0.1 10^3/uL N 0-0.2 Abs Nucleated RBC 0 10^3/uL N Granulocyte % 83.3 % High 38-83 Lymphocyte % 9.9 % Low 25-47 Monocyte % 6.0 % N 1-9 Eosinophil % 0.3 % N 0-6 Basophil % 0.5 % N 0-2 Nucleated Red Blood Cells % 0 N Comp Metabolic Panel 03/12/2017 [facility] Sodium 138 mmol/L N 133-[address] [place] [address] [phone] Potassium 3.9 mmol/L N 3.5-5.0 Chloride 104 mmol/L N 101-111 Co2 Carbon Dioxide 27 mmol/L N 22-32 Anion Gap 7 mmol/L N 2-11 Glucose 102 mg/dL High 70-100 Blood Urea Nitrogen 19 mg/dL N 6-24 Creatinine 0.91 mg/dL N 0.51-0.95 BUN/Creatinine Ratio 20.9 High 8-20 Calcium 9.5 mg/dL N 8.6-10.3 Total Protein 7.2 g/dL N 6.4-8.9 Albumin 4.2 g/dL N 3.2-5.2 Globulin 3.0 g/dL N 2-4 Albumin/Globulin Ratio 1.4 N 1-3 Total Bilirubin 0.80 mg/dL N 0.2-1.0 Alkaline Phosphatase 69 U/L N 34-104 Alt < 3 U/L Low 7-52 Ast 11 U/L Low 13-39 Egfr Non- 59.6 N >60 Egfr 76.7 N >60 16 Lipid Profile 03/12/2017 [facility] Triglycerides 98 mg/dL N 17 (Trig/Chol/HDL) [address] [place] [address] [phone] Cholesterol 185 mg/dL N 18 HDL Cholesterol 59.0 mg/dL N 19 LDL Cholesterol 106 mg/dL N 20 Laboratory test 03/12/2017 [facility] Troponin-I 0.01 ng/mL N <0.[address] (TnI) [place] [address] [phone] Inr/Protime 03/12/2017 [facility] Inr 0.94 N 0.89-1.[address] [place] [address] [phone] Laboratory test 03/12/2017 [facility] Partial 24.9 Low 26.0- 36.[address] [place] [address] PTT [phone] Urinalysis 03/12/2017 [facility] Urine Color Straw N Profile [address] [place] [address] [phone] Urine Appearance Cloudy N Urine Specific [place] 1.010 N 1.010-1.030 Urine pH 7.0 N 5-9 Urine Urobilinogen Negative N Negative Urine Ketones Negative N Negative Urine Protein Negative N Negative Urine Leukocytes Negative N Negative Urine Blood 1+ Abnormal Negative Urine Nitrite Negative N Negative Urine Bilirubin Negative N Negative Urine Glucose Negative N Negative Urine White Blood Cell Trace(0-5/hpf) N Absent Urine Red Blood Cell 2+(6-10/hpf) Abnormal Absent Urine Bacteria Absent N Absent Urine Squamous Epithelial Cell Present Abnormal Absent Type & Screen 03/12/2017 [facility] Patient Blood Type O Positive N [address] [place] [address] [phone] Antibody Screen NEGATIVE N Laboratory test 03/12/2017 [facility] TSH (Thyroid 0.61 mcIU/mL N 0.34-5.[address] Stim Horm) [place] [address] [phone] CBC Auto Diff 12/31/2016 [facility] White Blood 7.6 10^3/uL N 3.5-10.[address] [place] [address] [phone] Red Blood Count 3.55 10^6/uL Low 4.0-5.4 Hemoglobin 10.3 g/dL Low 12.0-16.0 Hematocrit 32 % Low 35-47 Mean Corpuscular Volume 89 fL N 80-97 Mean Corpuscular Hemoglobin 29 pg N 27-31 Mean Corpuscular HGB Conc 32 g/dL N 31-36 Red Cell Distribution Width 16 % High 10.5-15 Platelet Count 280 10^3/uL N 150-450 Mean Platelet Volume 8 um3 N 7.4-10.4 Abs Neutrophils 6.1 10^3/uL N 1.5-7.7 Abs Lymphocytes 0.9 10^3/uL Low 1.0-4.8 Abs Monocytes 0.5 10^3/uL N 0-0.8 Abs Eosinophils 0.1 10^3/uL N 0-0.6 Abs Basophils 0 10^3/uL N 0-0.2 Abs Nucleated RBC 0 10^3/uL N Granulocyte % 80.4 % N 38-83 Lymphocyte % 12.0 % Low 25-47 Monocyte % 6.3 % N 1-9 Eosinophil % 0.8 % N 0-6 Basophil % 0.5 % N 0-2 Nucleated Red Blood Cells % 0 N Basic Metabolic Panel 12/31/2016 [facility] Sodium 137 mmol/L N 133-[address] [place] [address] [phone] Potassium 4.4 mmol/L N 3.5-5.0 Chloride 104 mmol/L N 101-111 Co2 Carbon Dioxide 23 mmol/L N 22-32 Anion Gap 10 mmol/L N 2-11 Glucose 103 mg/dL High 70-100 Blood Urea Nitrogen 29 mg/dL High 6-24 Creatinine 1.05 mg/dL High 0.51-0.95 BUN/Creatinine Ratio 27.6 High 8-20 Calcium 9.1 mg/dL N 8.6-10.3 Egfr Non- 50.7 N >60 Egfr 65.2 N >60 21 CBC Auto Diff 11/20/2016 [facility] White Blood 10.7 10^3/uL N 3.5-10.[address] [place] [address] [phone] Red Blood Count 3.03 10^6/uL Low 4.0-5.4 Hemoglobin 9.1 g/dL Low 12.0-16.0 Hematocrit 28 % Low 35-47 Mean Corpuscular Volume 94 fL N 80-97 Mean Corpuscular Hemoglobin 30 pg N 27-31 Mean Corpuscular HGB Conc 32 g/dL N 31-36 Red Cell Distribution Width 17 % High 10.5-15 Platelet Count 368 10^3/uL N 150-450 Mean Platelet Volume 8 um3 N 7.4-10.4 Abs Neutrophils 9.1 10^3/uL High 1.5-7.7 Abs Lymphocytes 1.0 10^3/uL N 1.0-4.8 Abs Monocytes 0.5 10^3/uL N 0-0.8 Abs Eosinophils 0 10^3/uL N 0-0.6 Abs Basophils 0 10^3/uL N 0-0.2 Abs Nucleated RBC 0.01 10^3/uL N Granulocyte % 85.6 % High 38-83 Lymphocyte % 9.2 % Low 25-47 Monocyte % 4.6 % N 1-9 Eosinophil % 0.3 % N 0-6 Basophil % 0.3 % N 0-2 Nucleated Red Blood Cells % 0 N Laboratory test 10/24/2016 [facility] Surgical SEE RESULT [address] [place] [address] [phone] Laboratory test 10/23/2016 [facility] Lactic Acid 0.7 mmol/L N 0.5-2. [address] 0 [place] [address] [phone] Comp Metabolic 10/23/2016 [facility] Sodium 136 mmol/L N 133- [address] [place] [address] [phone] Potassium 4.1 mmol/L N 3.5-5.0 Chloride 104 mmol/L N 101-111 Co2 Carbon Dioxide 22 mmol/L N 22-32 Anion Gap 10 mmol/L N 2-11 Glucose 108 mg/dL High 70-100 Blood Urea Nitrogen 62 mg/dL High 6-24 Creatinine 2.17 mg/dL High 0.51-0.95 BUN/Creatinine Ratio 28.6 High 8-20 Calcium 9.5 mg/dL N 8.6-10.3 Total Protein 7.3 g/dL N 6.4-8.9 Albumin 4.2 g/dL N 3.2-5.2 Globulin 3.1 g/dL N 2-4 Albumin/Globulin Ratio 1.4 N 1-3 Total Bilirubin 0.60 mg/dL N 0.2-1.0 Alkaline Phosphatase 52 U/L N 34-104 Alt < 3 U/L Low 7-52 Ast 10 U/L Low 13-39 Egfr Non- 21.9 N >60 Egfr 28.2 N >60 24 Inr/Protime 10/23/2016 [facility] Inr 4.03 High 0.89-1.[address] [place] [address] [phone] CBC Auto Diff 10/23/2016 [facility] White Blood 9.8 N 3.5- 10.[address] Count 10^3/[place] [address] [phone] Red Blood Count 2.54 10^6/uL Low 4.0-5.4 Hemoglobin 8.1 g/dL Low 12.0-16.0 Hematocrit 25 % Low 35-47 Mean Corpuscular Volume 97 fL N 80-97 Mean Corpuscular Hemoglobin 32 pg High 27-31 Mean Corpuscular HGB Conc 33 g/dL N 31-36 Red Cell Distribution Width 15 % N 10.5-15 Platelet Count 254 10^3/uL N 150-450 Mean Platelet Volume 9 um3 N 7.4-10.4 Abs Neutrophils 8.4 10^3/uL High 1.5-7.7 Abs Lymphocytes 0.7 10^3/uL Low 1.0-4.8 Abs Monocytes 0.6 10^3/uL N 0-0.8 Abs Eosinophils 0 10^3/uL N 0-0.6 Abs Basophils 0.1 10^3/uL N 0-0.2 Abs Nucleated RBC 0 10^3/uL N Granulocyte % 86.0 % High 38-83 Lymphocyte % 7.5 % Low 25-47 Monocyte % 5.7 % N 1-9 Eosinophil % 0.1 % N 0-6 Basophil % 0.7 % N 0-2 Nucleated Red Blood Cells % 0 N Laboratory test 10/23/2016 [facility] Magnesium 2.4 mg/dL N 1.9-2.[address] [place] [address] [phone] Troponin-I (TnI) 0.01 ng/mL N <0.04 25 TSH (Thyroid Stim Horm) 0.35 mcIU/mL N 0.34-5.60 Urinalysis Profile 10/23/2016 [facility] Urine Color Yellow N [address] [place] [address] [phone] Urine Appearance Clear N Urine Specific [place] 1.011 N 1.010-1.030 Urine pH 5.0 N 5-9 Urine Urobilinogen Negative N Negative Urine Ketones Trace Abnormal Negative Urine Protein Negative N Negative Urine Leukocytes Trace Abnormal Negative Urine Blood Negative N Negative Urine Nitrite Negative N Negative Urine Bilirubin Negative N Negative Urine Glucose Negative N Negative Urine White Blood Cell Trace(0-5/hpf) N Absent Urine Red Blood Cell Absent N Absent Urine Bacteria Absent N Absent Urine Squamous Epithelial Cell Present Abnormal Absent Urine Hyaline Casts Present Abnormal Absent Urine Culture And 10/23/2016 [facility] Urine SEE RESULT [address] [place] [place] [address] [phone] Inr/Protime 10/07/2016 [facility] Inr 2.99 High 0.89- [address] 1[address]11 [place], [place] [address] [phone] Inr/Protime 09/25/2016 [facility] Inr 3.98 High 0.89- [address] 1[address]11 [place], [place] [address] [phone] Inr/Protime 09/19/2016 [facility] Inr 3.51 High 0.89- [address] 1[address]11 [place] [address] [phone] Inr/Protime 08/16/2016 [facility] Inr 2.85 High 0.89- [address] 1[address]11 [place] [address] [phone] Comp Metabolic 08/16/2016 [facility] Sodium 138 mmol/L N 133- [address] [place] [address] [phone] Potassium 4.3 mmol/L N 3.5-5.0 Chloride 103 mmol/L N 101-111 Co2 Carbon Dioxide 26 mmol/L N 22-32 Anion Gap 9 mmol/L N 2-11 Glucose 107 mg/dL High 70-100 Blood Urea Nitrogen 21 mg/dL N 6-24 Creatinine 0.90 mg/dL N 0.51-0.95 BUN/Creatinine Ratio 23.3 High 8-20 Calcium 9.2 mg/dL N 8.6-10.3 Total Protein 6.8 g/dL N 6.4-8.9 Albumin 4.2 g/dL N 3.2-5.2 Globulin 2.6 g/dL N 2-4 Albumin/Globulin Ratio 1.6 N 1-3 Total Bilirubin 0.70 mg/dL N 0.2-1.0 Alkaline Phosphatase 70 U/L N 34-104 Alt < 3 U/L Low 7-52 Ast 9 U/L Low 13-39 Egfr Non- 60.6 N >60 Egfr 77.9 N >60 28 Lipid Profile 08/16/2016 [facility] Triglycerides 142 mg/dL N 29 (Trig/Chol/HDL) [address] [place] [address] [phone] Cholesterol 224 mg/dL N 30 HDL Cholesterol 55.5 mg/dL N 31 LDL Cholesterol 140 mg/dL N 32 Inr/Protime 07/23/2016 [facility] Inr 2.85 High 0.89-1.11 [address] [place] [address] [phone] Basic Metabolic 07/18/2016 [facility] Sodium 137 mmol/L N 133- 145 33 Panel [address] [place] [address] [phone] Potassium 4.9 mmol/L N 3.5-5.0 Chloride 104 mmol/L N 101-111 Co2 Carbon Dioxide 27 mmol/L N 22-32 Anion Gap 6 mmol/L N 2-11 Glucose 102 mg/dL High 70-100 Blood Urea Nitrogen 33 mg/dL High 6-24 Creatinine 0.94 mg/dL N 0.51-0.95 BUN/Creatinine Ratio 35.1 High 8-20 Calcium 9.4 mg/dL N 8.6-10.3 Egfr Non- 57.6 N >60 Egfr 74.1 N >60 34 Laboratory test 07/18/2016 [facility] Magnesium 2.3 mg/dL N 1.9-2.7 35 finding [address] [place] [address] [phone] Inr/Protime 07/01/2016 [facility] Inr 1.91 High 0.89-1.11 36 [address] [place] [address] [phone] Basic Metabolic 07/01/2016 [facility] Sodium 138 mmol/L N 133- 145 Panel [address] [place] [address] [phone] Potassium 4.3 mmol/L N 3.5-5.0 Chloride 102 mmol/L N 101-111 Co2 Carbon Dioxide 29 mmol/L N 22-32 Anion Gap 7 mmol/L N 2-11 Glucose 104 mg/dL High 70-100 Blood Urea Nitrogen 23 mg/dL N 6-24 Creatinine 0.94 mg/dL N 0.51-0.95 BUN/Creatinine Ratio 24.5 High 8-20 Calcium 9.2 mg/dL N 8.6-10.3 Egfr Non- 57.6 N >60 Egfr 74.1 N >60 37 Laboratory test 07/01/2016 [facility] Magnesium 2.1 mg/dL N 1.9-2.[address] [place] [address] [phone] Inr/Protime 06/21/2016 [facility] Inr 2.89 High 0.89-1.[address] [place] [address] [phone] Inr/Protime 06/13/2016 [facility] Inr 3.30 High 0.89-1.[address] [place] [address] [phone] Inr/Protime 06/07/2016 [facility] Inr 1.58 High 0.89-1.[address] [place] [address] [phone] Inr/Protime 05/29/2016 [facility] Inr 1.61 High 0.89-1.[address] [place] [address] [phone] Laboratory test 05/07/2016 [facility] Surgical SEE RESULT [address] [place] [address] [phone] Basic Metabolic 05/03/2016 [facility] Sodium 138 mmol/L N 133- [address] [place] [address] [phone] Potassium 4.7 mmol/L N 3.5-5.0 Chloride 105 mmol/L N 101-111 Co2 Carbon Dioxide 25 mmol/L N 22-32 Anion Gap 8 mmol/L N 2-11 Glucose 95 mg/dL N 70-100 Blood Urea Nitrogen 31 mg/dL High 6-24 Creatinine 1.21 mg/dL High 0.51-0.95 BUN/Creatinine Ratio 25.6 High 8-20 Calcium 8.9 mg/dL N 8.6-10.3 Egfr Non- 43.0 N >60 Egfr 55.3 N >60 39 Inr/Protime 05/03/2016 [facility] Inr 2.03 High 0.89-1.[address] [place] [address] [phone] CBC Auto Diff 05/03/2016 [facility] White Blood 8.4 N 3.5- 10.[address] DRIVE Count 10^3/[place] [address] [phone] Red Blood Count 3.32 10^6/uL Low 4.0-5.4 Hemoglobin 10.3 g/dL Low 12.0-16.0 Hematocrit 32 % Low 35-47 Mean Corpuscular Volume 95 fL N 80-97 Mean Corpuscular Hemoglobin 31 pg N 27-31 Mean Corpuscular HGB Conc 33 g/dL N 31-36 Red Cell Distribution Width 14 % N 10.5-15 Platelet Count 268 10^3/uL N 150-450 Mean Platelet Volume 9 um3 N 7.4-10.4 Abs Neutrophils 6.8 10^3/uL N 1.5-7.7 Abs Lymphocytes 0.9 10^3/uL Low 1.0-4.8 Abs Monocytes 0.5 10^3/uL N 0-0.8 Abs Eosinophils 0.1 10^3/uL N 0-0.6 Abs Basophils 0 10^3/uL N 0-0.2 Abs Nucleated RBC 0 10^3/uL N Granulocyte % 81.2 % N 38-83 Lymphocyte % 11.1 % Low 25-47 Monocyte % 6.5 % N 1-9 Eosinophil % 0.6 % N 0-6 Basophil % 0.6 % N 0-2 Nucleated Red Blood Cells % 0 N Pre Cath 05/03/2016 [facility] Partial 31.8 seconds N 26.0- 36.[address] [place] [address] PTT [phone] CBC Auto 04/09/2016 [facility] White Blood 6.1 10^3/uL N 3.5- 10.[address] [place] [address] [phone] Red Blood Count 3.53 10^6/uL Low 4.0-5.4 Hemoglobin 10.9 g/dL Low 12.0-16.0 Hematocrit 33 % Low 35-47 Mean Corpuscular Volume 94 fL N 80-97 Mean Corpuscular Hemoglobin 31 pg N 27-31 Mean Corpuscular HGB Conc 33 g/dL N 31-36 Red Cell Distribution Width 14 % N 10.5-15 Platelet Count 257 10^3/uL N 150-450 Mean Platelet Volume 10 um3 N 7.4-10.4 Abs Neutrophils 4.3 10^3/uL N 1.5-7.7 Abs Lymphocytes 1.2 10^3/uL N 1.0-4.8 Abs Monocytes 0.3 10^3/uL N 0-0.8 Abs Eosinophils 0.1 10^3/uL N 0-0.6 Abs Basophils 0.1 10^3/uL N 0-0.2 Abs Nucleated RBC 0 10^3/uL N Granulocyte % 71.3 % N 38-83 Lymphocyte % 20.0 % Low 25-47 Monocyte % 5.6 % N 1-9 Eosinophil % 1.4 % N 0-6 Basophil % 1.7 % N 0-2 Nucleated Red Blood Cells % 0 N Comp Metabolic Panel 04/09/2016 [facility] Albumin 3.8 g/dL N 3.2-5.[address] [place] [address] [phone] Total Bilirubin 0.40 mg/dL N 0.2-1.0 Sodium 140 mmol/L N 133-145 Potassium 4.2 mmol/L N 3.5-5.0 Chloride 107 mmol/L N 101-111 Co2 Carbon Dioxide 25 mmol/L N 22-32 Anion Gap 8 mmol/L N 2-11 Glucose 134 mg/dL High 70-100 Blood Urea Nitrogen 33 mg/dL High 6-24 Creatinine 1.19 mg/dL High 0.51-0.95 BUN/Creatinine Ratio 27.7 High 8-20 Calcium 9.0 mg/dL N 8.6-10.3 Total Protein 6.7 g/dL N 6.4-8.9 Globulin 2.9 g/dL N 2-4 Albumin/Globulin Ratio 1.3 N 1-3 Alkaline Phosphatase 88 U/L N 34-104 Alt 6 U/L Low 7-52 Ast 47 U/L High 13-39 Egfr Non- 43.9 N >60 Egfr 56.4 N >60 40 Laboratory test 04/09/2016 [facility] Free T4 (Free 0.88 ng/dL N 0.61-1.[address] Thyroxine) [place] [address] [phone] TSH (Thyroid Stim Horm) 0.50 mcIU/mL N 0.34-5.60 Vitamin B12 411 pg/mL N 180-914 41 Inr/Protime 11/07/2015 [facility] Inr 2.32 High 0.89-1.11 [address] [place] [address] [phone] Laboratory test 01/02/2015 [facility] Inr 1.58 High 0.78-1.07 finding [address] [place] [address] [phone] Comp Metabolic 06/02/2014 [facility] Sodium 137 mmol/L N 133- 145 Panel [address] [place] [address] [phone] Potassium 4.6 mmol/L N 3.7-5.6 Chloride 101 mmol/L N 101-111 Co2 Carbon Dioxide 29 mmol/L N 22-32 Anion Gap 7 mmol/L N 2-11 Glucose 112 mg/dL High 70-100 Blood Urea Nitrogen 22 mg/dL N 6-24 Creatinine 0.97 mg/dL High 0.51-0.95 BUN/Creatinine Ratio 22.7 High 8-20 Calcium 9.1 mg/dL N 8.6-10.3 Total Protein 6.6 g/dL N 6.4-8.9 Albumin 3.9 g/dL N 3.2-5.2 Globulin 2.7 g/dL N 2-4 Albumin/Globulin Ratio 1.4 N 1-3 Total Bilirubin 0.60 mg/dL N 0.2-1.0 Alkaline Phosphatase 63 U/L N 34-104 Alt 5 U/L Low 7-52 Ast 11 U/L Low 13-39 Egfr Non- 55.8 N >60 Egfr 71.8 N >60 42 Lipid Profile 06/02/2014 [facility] Triglycerides 144 mg/dL N 43 (Trig/Chol/HDL) [address] [place] [address] [phone] Cholesterol 165 mg/dL N 44 HDL Cholesterol 39.6 mg/dL N 45 LDL Cholesterol 97 mg/dL N 46 Laboratory test 06/02/2014 [facility] Vitamin B12 209 pg/mL N 180-914 47 finding [address] [place] [address] [phone] TSH (Thyroid Stimulating Horm) 0.44 IU/mL N 0.34-5.60 CRP High Sensitivity 13.43 mg/L N 48 CBC Auto Diff 06/02/2014 [facility] White Blood 8.0 10^3/uL N 4.8-10.8 [address] [place] [address] [phone] Red Blood Count 3.44 10^6/uL Low 4.0-5.4 Hemoglobin 10.8 g/dL Low 12.0-16.0 Hematocrit 33 % Low 35-47 Mean Corpuscular Volume 95 fL N 80-97 Mean Corpuscular Hemoglobin 32 pg High 27-31 Mean Corpuscular HGB Conc 33 g/dL N 31-36 Red Cell Distribution Width 13 % N 10.5-15 Platelet Count 305 10^3/uL N 150-450 Mean Platelet Volume 9 um3 N 7.4-10.4 Abs Neutrophils 6.5 10^3/uL N 1.5-7.7 Abs Lymphocytes 0.9 10^3/uL Low 1.0-4.8 Abs Monocytes 0.5 10^3/uL N 0-0.8 Abs Eosinophils 0.1 10^3/uL N 0-0.6 Abs Basophils 0.1 10^3/uL N 0-0.2 Abs Nucleated RBC 0.01 10^3/uL N Granulocyte % 81.2 % N 38-83 Lymphocyte % 11.4 % Low 25-47 Monocyte % 6.2 % N 1-9 Eosinophil % 0.6 % N 0-6 Basophil % 0.6 % N 0-2 Nucleated Red Blood Cells % 0.1 N Inr/Protime 06/02/2014 [facility] Inr 1.65 High 0.85-1.06 [place] [address] [phone] Laboratory test 03/28/2014 [facility] Inr 2.50 High 0.85-1.06 [place] [address] [phone] Laboratory test 03/18/2014 [facility] Inr 1.42 High 0.85-1.06 [place] [address] [phone] Laboratory test 02/24/2014 [facility] Inr 3.41 High 0.85-1.06 [place] [address] [phone] Laboratory test 02/04/2014 [facility] Inr 1.99 High 0.85-1.06 [place] [address] [phone] Laboratory test 01/20/2014 [facility] Inr 1.67 High 0.85-1.[address] [place] [address] [phone] Laboratory test 11/01/2013 [facility] Inr 2.34 High 0.85-1.[address] [place] [address] [phone] Inr/Protime 10/04/2013 Inr 3.57 High 0.85-1.06 Laboratory test 07/29/2013 [facility] Inr 1.95 High 0.85-1.06 [address] [place] [address] [phone] Laboratory test 07/22/2013 [facility] C Reactive < 0.5 Less than 0.[address] [place] [address] Protein mg/[place] [address] [phone] Erythrocyte Sed Rate 15 mm/Hr 0-40 Jolly (Anti-Nuclear AB) Screen Negative Negative 50 Rheumatoid Factor <15 IU/mL <15 51 Laboratory test 07/22/2013 [facility] Inr 4.62 High 0.85-1.06 [address] [place] [address] [phone] Laboratory test 06/02/2013 [facility] Inr 3.08 High 0.87-0.[address] [place] [address] [phone] Basic Metabolic 06/02/2013 [facility] Sodium 138 mmol/L 133- [address] [place] [address] [phone] Potassium 4.4 mmol/L 3.5-5.0 Chloride 104 mmol/L 101-111 Co2 Carbon Dioxide 27.0 mmol/L 22-32 Anion Gap 7.0 mmol/L 2-11 Glucose 88 mg/dL 70-100 Blood Urea Nitrogen 17 mg/dL 6-24 Creatinine 1.00 mg/dL 0.50-1.40 BUN/Creatinine Ratio 17.0 8-20 Calcium 9.2 mg/dL 8.1-9.9 Egfr Non- 54.1 >60 Egfr 69.5 >60 53 Laboratory test 06/02/2013 [facility] Magnesium 2.3 mg/dL 1.7 -2.[address] [place] [address] [phone] Laboratory test 04/07/2013 [facility] Inr 2.42 High 0.87-0.[address] [place] [address] [phone] Laboratory test 03/29/2013 [facility] Inr 1.66 High 0.87-0.[address] [place] [address] [phone] Laboratory test 03/22/2013 [facility] Inr 1.79 High 0.87-0.[address] [place] [address] [phone] Basic Metabolic 01/06/2013 [facility] Sodium 142 mmol/L 133- [address] [place] [address] [phone] [phone] Potassium 3.8 mmol/L 3.5-5.0 Chloride 109 mmol/L 101-111 Co2 Carbon Dioxide 26.0 mmol/L 22-32 Anion Gap 7.0 mmol/L 2-11 Glucose 119 mg/dL High 70-100 Blood Urea Nitrogen 15 mg/dL 6-24 Creatinine 1.00 mg/dL 0.50-1.40 BUN/Creatinine Ratio 15.0 8-20 Calcium 9.2 mg/dL 8.1-9.9 Egfr Non- 54.2 >60 Egfr 69.7 >60 54 Laboratory test 01/06/2013 [facility] Magnesium 2.1 mg/dL 1.7 -2.[address] [place] [address] [phone] Inr/Protime 01/06/2013 [facility] Inr 2.24 High 0.87-0.[address] [place] [address] [phone] Laboratory test 08/21/2012 [facility] Inr 3.56 High 0.82-1.[address] [place] [address] [phone] Basic Metabolic 05/28/2012 [facility] Sodium 138 mmol/L 133- [address] [place] [address] [phone] Potassium 4.2 mmol/L 3.5-5.0 Chloride 110 mmol/L 101-111 Co2 Carbon Dioxide 26.0 mmol/L 22-32 Anion Gap 2.0 mmol/L 2-11 Glucose 100 mg/dL 70-100 Blood Urea Nitrogen 17 mg/dL 6-24 Creatinine 0.90 mg/dL 0.50-1.40 BUN/Creatinine Ratio 18.9 8-20 Calcium 9.1 mg/dL 8.1-9.9 Egfr Non- 61.2 >60 Egfr 78.7 >60 56 Laboratory test 05/28/2012 [facility] Magnesium 2.5 mg/dL 1.7 -2.6 finding [facility] [place] [place] [address] [phone] Laboratory test 05/28/2012 [facility] Inr 2.06 High 0.82-1.17 57 finding [address] [place] [address] [phone] 1 SEE RESULT BELOW Name: LIUDMILA PHELAN : [address]: Jayme Guzman MD Acct: [id number] Unit: [id number] AGE: 77 Location: [place] [address] Re12/25/17 Dis: 12/27/17 SEX: F Status: DIS IN SPEC: [id number] NATE: 12/26/17- SUBM DR: Bibiana Andrews DO REQ: [id number] RECD: 12/26/17 STATUS: BLAKE TRACY DR: Jayne [...] CONTINUED ON NEXT PAGE DEPARTMENT OF PATHOLOGY, [address] [place] [address] Enrrique Roberts M.D. Director [facility] # [id number] RUN DATE: 12/30/17 [facility] LAB LIVE PAGE 2 Patient: LIUDMILA PHELAN [id number] (Continued) GROSS DESCRIPTION (Continued) Signed by and Reported on: Anali Malone MD 12/30/17 1131 END OF REPORT DEPARTMENT OF PATHOLOGY, [address] [place] [address] Enrrique Roberts M.D. Director [facility] # [id number] FASTING 10 HOUR 3 Desirable: <150 Borderline High: 150-199 High: 200-499 Very High: >500 4 Desirable: <200 Borderline High: 200-239 High: >239 5 Low: <40 Desirable: 40-60 High: >60 6 Desirable: <100 Near Optimal: 100-129 Borderline High: 130-159 High: 160-189 Very High: >189 7 [facility] Severe Sepsis and Septic Shock Management [...] (or dialysis) 11 SEE RESULT BELOW Name: LIUDMILA PHELAN : [address]: Vish Clement MD Acct: [id number] Unit: [id number] AGE: 77 Location: ED Re06/15/17 SEX: F Status: REG ER SPEC: [id number] NATE: 06/16/[address]: Vish Clement MD REQ: [id number] RECD: 06/16/17 STATUS: INDIO TRACY DR: Douglas Damon MD _ SOURCE: URINE [facility]: ORDERED: Urine Culture Procedure Result Reported Site Urine Culture Final 06/17/17 0839 ML No growth of clinically significant organisms * ML - MAIN LAB ([facility]) . END OF REPORT * ML=Testing performed at Main Lab DEPARTMENT OF PATHOLOGY, [address] [place] [address] Enrrique Roberts M.D. Director [facility] # [id number] 12 Because ethnic data is not always [...] 5 Kidney failure <15 (or dialysis) 13 [facility] Severe Sepsis and Septic Shock Management [...] 5 Kidney failure <15 (or dialysis) 15 [facility] Severe Sepsis and Septic Shock Management [...] (or dialysis) 22 SEE RESULT BELOW Name: LIUDMILA PHELAN : [address]: Barbi Goff MD Acct: [id number] Unit: [id number] AGE: 76 Location: [place] [address] Re10/24/16 SEX: F Status: ADM IN SPEC: [id number] NATE: 10/24/16-1622 [facility] [address]: Venkata Bearden MD REQ: [id number] RECD: 10/24/16236 STATUS: BLAKE TRACY DR: Dagoberto Damon MD [...] performed at Main Lab DEPARTMENT OF PATHOLOGY, [address] [place] [address] Enrrique Roberts M.D. Director [facility] # [id number] 23 [facility] Severe Sepsis and Septic Shock Management [...] 25 99th percentile=0.04 ng/mL Troponin results at [facility] and [facility] are not interchangeable. 26 SEE RESULT BELOW Name: LIUDMILA PHELAN : [address]: Singh Arvizu MD Acct: [id number] Unit: [id number] AGE: 76 Location: [place] [address]- Re10/24/16 SEX: F Status: ADM IN SPEC: [id number] NATE: 10/23/16-5 [facility] [address]: Aniceto Espinosa MD REQ: [id number] RECD: 10/23/16 STATUS: INDIO TRACY DR: Douglas Damon MD _ SOURCE: URINE SPDESC: ORDERED: Urine Culture Procedure Result Reported Site Urine Culture Final 10/25/16- 0812 ML Organism 1 PROTEUS MIRABILIS [place] Bottom Count 10-25,000 (Moderate) CFU/ML 1. PROTEUS MIRABILIS [...] antibiotic reporting. * ML - MAIN LAB ([facility]) . END OF REPORT * ML=Testing performed at Main Lab DEPARTMENT OF PATHOLOGY, [address] [place] [address] Enrrique Roberts M.D. Director [facility] # [id number] 27 STANDING ORDER ENTERED 05/25/16 EXPIRES 11/12/16 [...] mg/dL 33 ORDERED 06/27/16 EXPIRES 12/25/16 CC: NELSON [...] 5 Kidney failure <15 (or dialysis) 35 ORDERED 06/27/16 EXPIRES 12/25/16 CC: NELSON 36 STANDING ORDER ENTERED 05/25/16 EXPIRES 11/12/16 Q MONTHLY AND PRN 37 Because ethnic data is not always readily [...] 15-29 5 Kidney failure <15 (or dialysis) 38 SEE RESULT BELOW Name: LIUDMILA PHELAN : [address]: Joey Bull MD Acct: [id number] Unit: [id number] AGE: 76 Location: [facility] Re05/07/16 SEX: F Status: REG REF SPEC: [id number] NATE: 05/07/16 [facility] DR: Joey Bull MD REQ: [id number] RECD: 05/07/16 STATUS: SOUT _ ORDERED: LEVEL I FINAL DIAGNOSIS Pacemaker generator: Foreign body (pacemaker generator) (Gross diagnosis). PRE-OPERATIVE DIAGNOSIS Sick sinus syndrome, E.R.I. GROSS DESCRIPTION The specimen is received fresh with no source identified, and consists of a 4.7 x 4.5 x 0.6 cm silver metallic medical equipment sales. The following inscription is identified: [employer] S[employer]ia [id number] DDDR SN [id number] [facility]. Per established hospital medical staff protocol, no tissue is submitted. Gross only. Signed (signature on file) Anali Malone MD 1046 END OF REPORT * ML=Testing performed at Main Lab DEPARTMENT OF PATHOLOGY, [address] [place] [address] Enrrique Roberts M.D. Director [facility] # [id number] 39 Because ethnic data is not always [...] range effective 13. 50 @Sample frozen by [id number] at 1056 on 07/22/13. 51 Test Performed by: [place] [address] Switch Crew Supervisor: Carmine Loomis III, M.D. 52 Please note [...] heart valves 2.5 - 3.5 Procedures Date Code Description Status 05/26/2018 41057 Pace Maker Eval W/Iterative Adjment Dual Lead Completed 05/26/2018 82858 Pace Maker Eval W/Iterative Adjment Dual Lead Completed 05/08/2018 97197 EKG Tracing & Interpretation Completed 05/01/2018 699387824 Diabetic Retinal Eye Exam Completed 04/06/2018 38891 EKG Tracing & Interpretation Completed 01/01/2018 78402 Remove Impacted Cerumen Completed 12/26/2017 95995 Endoscopy Upper GI Biopsy Completed 12/10/2017 15940 Pace Maker Eval W/Iterative Adjment Dual Lead Completed 12/10/2017 52765 Pace Maker Eval W/Iterative Adjment Dual Lead Completed 09/16/2017 69110 EKG Tracing & Interpretation Completed 09/08/2017 50790 Treadmill Interp/Report Only Completed 09/08/2017 58387 Stress Test Supervsn W/Out I/R Completed 07/11/2017 99502 Holter Monitor Review (24 hr)dr review & interp only Completed 07/08/2017 66336 ECG Monitor/Recording W/Visual Superimposition Completed Scanning 05/05/2017 46777 EKG Tracing & Interpretation Completed 03/27/2017 10868 EKG, Interpretation Only Completed 03/14/2017 69552 Interrogation Device Eval In Person W/DR Completed Analysis,Single,Dual,Mul 03/12/2017 12799 EEG Recording Awake & Drowsy Completed 03/12/2017 28647 ECHO Transthorasic Realtime 2D W Doppler & Color Flow Completed Hosp 12/02/2016 90243 Pace Maker Eval W/Iterative Adjment Dual Lead Completed 11/20/2016 03981 Inhalation TX For Acute Airway Obstruction Completed W/Nebulizer/Inhaler 11/06/2016 84111 EKG Tracing & Interpretation Completed 10/28/2016 94295 Treadmill Interp/Report Only Completed 10/28/2016 77083 Stress Test Supervsn W/Out I/R Completed 10/27/2016 72993 EKG, Interpretation Only Completed 10/23/2016 83852 ECHO Transthorasic Realtime 2D W Doppler & Color Flow Completed Hosp 06/04/2016 52587 Pace Maker Eval W/Iterative Adjment Dual Lead Completed 05/07/2016 82596 Removal With Replacement Dual Lead System Pulse Completed Generator 05/01/2016 59302 Interrogation Device Eval In Person W/ Completed Analysis,Single,Dual,Mul 04/19/2016 39771 Pace Maker Eval W/Iterative Adjment Dual Lead Completed 02/21/2016 36492 EKG Tracing & Interpretation Completed 02/09/2016 35202 Interrogation Device Eval In Person W/ Completed Analysis,Single,Dual,Mul 11/09/2015 92479 Interrogation Device Eval In Person W/ Completed Analysis,Single,Dual,Mul 08/16/2015 14682 Pace Maker Eval W/Iterative Adjment Dual Lead Completed 03/14/2015 36340 EKG Tracing & Interpretation Completed 03/08/2015 46387 Interrogation Device Eval In Person W/ Completed Analysis,Single,Dual,Mul 12/27/2014 81515 Interrogation Device Eval In Person W/ Completed Analysis,Single,Dual,Mul 08/03/2014 74339 EKG Tracing & Interpretation Completed 06/08/2014 73753 Pace Maker Eval W/Iterative Adjment Dual Lead Completed 11/18/2013 14131 Pace Maker Eval W/Iterative Adjment Dual Lead Completed 09/08/2013 50188535 Mammogram Completed 05/25/2013 41703 Cardiac Event Monitor Completed 04/23/2013 18901 EKG Tracing & Interpretation Completed 04/22/2013 65291 Pace Maker Eval W/Iterative Adjment Dual Lead Completed 11/09/2012 81582 Pace Maker Eval W/Iterative Adjment Dual Lead Completed 11/06/2012 71382 Myocardial Perfusion Imaging Tomographic (Spect) Completed Multiple Studies 11/06/2012 18306 Stress Test Completed 08/28/2012 73236 EKG Tracing & Interpretation Completed 08/26/2012 22672 Pace Maker Eval W/Iterative Adjment Dual Lead Completed Encounters Type Date Location Provider Dx Diagnosis Office Visit 06/10/2018 [facility] Internal Eva Urena, I10 Essential (primary ) 11:20a Medicine - N.P. hypertension [place] R60.0 Localized edema Office Visit 05/29/2018 10:00a [place] [facility] Aamir Ross, G20 Parkinson's Services Of [facility] [place] disease I48.2 Chronic atrial fibrillation I10 Essential (primary) hypertension R26.81 Unsteadiness on feet Office Visit 05/09/2018 4:12p [place] [facility] Gustavo Lopes R07.9 Chest pain, Addisno Izquierdo unspecified I48.91 Unspecified atrial fibrillation Office Visit 05/09/2018 [facility] Barbi Hohn, R07.9 Chest pain, 11:05a Assocelroy M.D. 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 Shell, I63.9 Cerebral 11:04a Asselroy morrison M.D. infarction, Hospitalists unspecified I48.91 Unspecified atrial fibrillation R07.9 Chest pain, unspecified G20 Parkinson's disease Office Visit 05/08/2018 2:15p [facility] Young Dunlap R07.9 Chest pain, Of Christin Mittal M.D., unspecified FACC, FASNC Office Visit 05/06/2018 4:00p [facility] Internal Eva Urena, I10 Essential Medicine - N.P. (primary) [place] hypertension R07.89 Other chest pain H91.93 Unspecified hearing loss, bilateral R60.0 Localized edema [facility] I48.2 Chronic atrial 1:00p Cardiology Of [place], FACC, FASNC fibrillation [facility] Office Visit 03/27/2018 [place] Christopher Cody, G20 Parkinson's 10:15a Neurologic M.DGrant disease Services Of [facility] Z86.73 Prsnl hx of TIA (TIA), and cereb infrc w/o resid deficits I48.91 Unspecified atrial fibrillation Office Visit 02/11/2018 11:20a [facility] Internal Douglas Damon, I10 Essential Medicine - M.DGrant (primary) [place] hypertension I48.91 Unspecified atrial fibrillation E78.2 Mixed hyperlipidemia Office Visit 01/01/2018 11:40a [facility] Internal Eva Urena, 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 infarction due Hospitalists to embolism of unsp cerebral artery I10 Essential (primary) hypertension R42 Dizziness and giddiness I48.91 Unspecified atrial fibrillation [facility]2017 [facility] Cerebral Assoc,elroy Barger M.D. infarction due Hospitalists to embolism of unsp cerebral artery I10 Essential (primary) hypertension R42 Dizziness and giddiness I48.91 Unspecified atrial fibrillation Office Visit 12/25/2017 7:00a [facility] Gastroenterology Dafne Alex, Z87.11 Personal MD history of peptic ulcer disease G45.9 Transient cerebral ischemic attack, unspecified K92.2 Gastrointestinal hemorrhage, unspecified Office Visit 12/25/2017 1:[facility]p [facility] I63.40 Cerebral Assoc,elroy Barger M.D. infarction due Hospitalists to embolism of unsp cerebral artery I10 Essential (primary) hypertension Office Visit 12/25/[address] [facility]vee Shepherd G45.9 Transient 2:16p Jose Alberto Baker M.D. cerebral ischemic attack, unspecified I48.2 Chronic atrial fibrillation Office Visit 12/24/2017 [facility] Vannessa Trotter R20.2 Paresthesia of 1:53p Assoc,elroy Tamayo, A[employer] FARM MANAGER skin Hospitalists R42 Dizziness and giddiness I10 Essential (primary) hypertension I48.91 Unspecified atrial fibrillation Office Visit 12/24/2017 [facility] Steve Shepherd G45.9 Transient 2:13p Jose Alberto Baker M.D. cerebral ischemic attack, unspecified I10 Essential (primary) hypertension I48.2 Chronic atrial fibrillation G20 Parkinson's disease Office Visit 12/22/2017 9:30a [place] [facility] Aamir Ross, G20 Parkinson's [facility] Of [facility] [place] disease I48.91 Unspecified atrial fibrillation I49.5 Sick sinus syndrome Z95.0 Presence of cardiac pacemaker Z86.73 Prsnl hx of TIA (TIA), and cereb infrc w/o resid deficits Office Visit 12/10/2017 11:00a [facility] Internal Douglas Damon, I10 Essential Medicine - M.DGrant (primary) [place] hypertension I48.2 Chronic atrial fibrillation M25.511 Pain in right shoulder I95.1 Orthostatic hypotension Office Visit 10/15/2017 10:00a [facility] Internal Douglas Damon, I10 Essential Medicine - [place] (primary) [place] hypertension R26.81 Unsteadiness on feet I48.2 Chronic atrial fibrillation E78.2 Mixed hyperlipidemia M25.511 Pain in right shoulder Office Visit 09/16/2017 1:45p [facility] Young Germán R07.89 Other chest pain Of Christin Mittal M.D., FACC, FASNC Office Visit 09/12/2017 2:40p [facility] Internal Chase Allen, I10 Essential Medicine - [employer] FARM MANAGER (primary) [place] hypertension R94.5 Abnormal results of liver function studies R07.89 Other chest pain Office Visit 09/08/2017 [facility] Vannessa Trotter R07.9 Chest pain, 8:13a Assoc,elroy Tamayo, MATTHIEU unspecified Hospitalists G20 Parkinson's disease I48.91 Unspecified atrial fibrillation Z86.73 Prsnl hx of TIA (TIA), and cereb infrc w/o resid deficits Office Visit 09/07/2017 [facility] Ty Parks R07.9 Chest pain, 8:13a elroy Mullins II, M.D. unspecified Hospitalists G20 Parkinson's disease I48.91 Unspecified atrial fibrillation Z86.73 Prsnl hx of TIA (TIA), and cereb infrc w/o resid deficits Office Visit 08/27/2017 9:40a [facility] Internal Douglas L98.9 Disorder of the Medicine Koko Damon M.D. skin and [place] subcutaneous tissue, unspecified R26.81 Unsteadiness on feet Office Visit 07/18/2017 [facility] Internal Douglas Z01.818 Encounter for other 1:40p Brigette Damon M.D. preprocedural [address] examination I10 Essential (primary) hypertension I48.2 Chronic atrial fibrillation G20 Parkinson's disease Office Visit 07/15/2017 2:45p [facility] Youngdelphine Dunlap I48.2 Chronic atrial Of Christin Mittal M.D., fibrillation FAC, [facility] H26.9 Unspecified cataract Z01.810 Encounter for preprocedural cardiovascular examination Office Visit 07/15/2017 3:00p [place] [facility] Azalea Banks G20 Parkinson's Services Of Christin Junior M.D. 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 abnormalities of [place] gait and mobility Office Visit 06/18/2017 [facility] Internal Douglas G45.9 Transient cerebral 11:20a Brigette Damon M.D. ischemic attack, [place] unspecified R42 Dizziness and giddiness R29.6 Repeated falls Office Visit 05/21/2017 8:40a [facility] Internal Douglas Damon, I10 Essential Medicine - [place] (primary) [place] hypertension I63.9 Cerebral infarction, unspecified I95.2 Hypotension due to drugs Z23 Encounter for immunization Office Visit 05/05/2017 9:45a [facility] Young Germán I48.0 Paroxysmal atrial Of Christin Mittal M.D., fibrillation FACC, FASNC Office Visit 04/22/2017 2:00p [facility] Internal Douglas I48.0 Paroxysmal atrial Medicine - Tbmitchell Damon, fibrillation Rd MShane I10 Essential (primary) hypertension I63.9 Cerebral infarction, unspecified R07.89 Other chest pain R29.6 Repeated falls Office Visit 03/21/2017 Neuro[facility]ist Shirley I63.9 Cerebral 4:50p Jose Alberto Friedman M.D. infarction, unspecified I48.91 Unspecified atrial fibrillation Office Visit 03/20/2017 4:23p [facility] Barbi Goff, I63.20 Cereb infrc Assoc,pc [place] due to uns Hospitalists occls or stenos of unsp precerb art I10 Essential (primary) hypertension G20 Parkinson's disease I95.1 Orthostatic hypotension Office Visit 03/19/2017 4:23p [facility] Barbi Goff, I63.20 Cereb infrc Assoc,pc DarrenDGrant due to uns Hospitalists occls or stenos of unsp precerb art I10 Essential (primary) hypertension G20 Parkinson's disease I95.1 Orthostatic hypotension Office Visit 03/17/2017 4:22p [facility] Barbi Dhillonhn, I63.20 Cereb infrc Asselroy morrison M.D. due to unsp Hospitalists occls or stenos of unsp precerb art I10 Essential (primary) hypertension G20 Parkinson's disease I95.1 Orthostatic hypotension Office Visit 03/16/2017 [facility] Barbi Shell, I63.40 Cerebral 3:43p Asselroy morrison M.D. infarction due Hospitalists to embolism of unsp cerebral artery I48.0 Paroxysmal atrial fibrillation I95.1 Orthostatic hypotension Office Visit 03/15/2017 [facility] Barbi Shell, I63.40 Cerebral 3:43p elroy Mullins M.D. infarction due Hospitalists to embolism of unsp cerebral artery I48.0 Paroxysmal atrial fibrillation I95.1 Orthostatic hypotension Office Visit 03/14/2017 9:06a [facility] [place] SGrant R55 Syncope and Of Dry Goods Inspector Sequeira, DO FAC collapse I63.9 Cerebral infarction, unspecified Z95.0 Presence of cardiac pacemaker I49.5 Sick sinus syndrome Office Visit 03/14/2017 [facility] Barbi Shell, I63.40 Cerebral 3:42p elroy Mullins M.D. infarction due Hospitalists to embolism of unsp cerebral artery I48.0 Paroxysmal atrial fibrillation I95.1 Orthostatic hypotension I47.2 Ventricular tachycardia Office Visit 03/13/2017 [facility] Steve Shepherd I63.40 Cerebral 2:31p Jose Alberto Baker M.D. infarction due to embolism of unsp cerebral artery I10 Essential (primary) hypertension I48.91 Unspecified atrial fibrillation Office Visit 03/13/2017 [facility] Barbi Shell, I63.40 Cerebral 3:42p elroy Mullins M.D. infarction due Hospitalists to embolism of unsp cerebral artery I48.0 Paroxysmal atrial fibrillation I95.0 Idiopathic hypotension G20 Parkinson's disease Office Visit 03/12/2017 3:41p [facility] Singh I63.40 Cerebral Assoc,elroy Arvizu MD infarction due Hospitalists to embolism of unsp cerebral artery I48.0 Paroxysmal atrial fibrillation G20 Parkinson's disease I95.1 Orthostatic hypotension Office Visit 03/12/2017 [facility] Steve Shepherd I63.40 Cerebral 2:31p Clinic [place] Baker infarction due to embolism of unsp cerebral artery I10 Essential (primary) hypertension I48.91 Unspecified atrial fibrillation R55 Syncope and collapse Office Visit 02/20/2017 11:45a [place] [facility] Azalea Banks G20 Parkinson's Services Of Christin Junior M.D. disease I95.1 Orthostatic hypotension Office Visit 02/03/2017 1:00p [facility] Young Dunlap I48.0 Paroxysmal atrial Cardiology Of [place] Mittal, fibrillation [facility] FAC, FASNC Office Visit 2017 9:20a [facility] Internal [facility] M51.16 Intervertebral disc Medicine - [place], disorders w Christine Jaime radiculopathy, lumbar region I48.0 Paroxysmal atrial fibrillation Office Visit 12/25/2016 10:40a [facility] Internal Douglas Damon, K29.61 Other gastritis Medicine - M.DGrant with bleeding [place] M51.16 Intervertebral disc disorders w radiculopathy, lumbar region I48.0 Paroxysmal atrial fibrillation I12.9 Hypertensive chronic kidney disease w stg 1-4/unsp chr kdny N18.9 Chronic kidney disease, unspecified Office Visit 11/22/2016 10:00a [facility] Internal Medicine Douglas Damon M.D. R05 Cough - [address] Office Visit 11/20/2016 8:20a [facility] Internal Medicine Douglas Damon M.D. R05 Cough - [place] D64.9 Anemia, unspecified I10 Essential (primary) hypertension Office Visit 11/13/2016 11:15a [place] [facility] Azalae Banks I95.1 Orthostatic Services Of Christin Junior M.D. hypotension G20 Parkinson's disease Office Visit 11/13/2016 9:20a [facility] Internal Douglas Damon, I10 Essential Medicine - M.DGrant (primary) [place] hypertension I95.1 Orthostatic hypotension I48.0 Paroxysmal atrial fibrillation K25.0 Acute gastric ulcer with hemorrhage J20.9 Acute bronchitis, unspecified Office Visit 11/06/2016 10:15a [place] [facility] Young Dunlap I48.0 Paroxysmal atrial [place] Mittal, fibrillation [facility], FASFL I49.5 Sick sinus syndrome Z95.0 Presence of cardiac pacemaker I47.2 Ventricular tachycardia R94.31 Abnormal electrocardiogram [ECG] [EKG] Office 11/01/2016 [facility] K92.2 Gastrointestinal Visit 1:21p Assoc,pc Roni, [employer]ARM MANAGER hemorrhage, Hospitalists unspecified R55 Syncope and collapse D64.9 Anemia, unspecified G20 Parkinson's disease Office 10/31/2016 [facility] K92.2 Gastrointestinal Visit 1:20p Assoc,pc Roni, [employer] FARM MANAGER hemorrhage, Hospitalists unspecified R55 Syncope and collapse D64.9 Anemia, unspecified G20 Parkinson's disease Office Visit 10/30/2016 Neuro[facility]ist Nils I95.1 Orthostatic 2:53p Clinic MD Sherine hypotension G20 Parkinson's disease Office 10/30/2016 [facility] K92.2 Gastrointestinal Visit 1:19p Assocelroy, [employer] FARM MANAGER hemorrhage, Hospitalists unspecified R55 Syncope and collapse D64.9 Anemia, unspecified G20 Parkinson's disease Office Visit 10/29/2016 [facility] Nils I95.1 Orthostatic 2:52p Clinic MD Sherine hypotension G20 Parkinson's disease Office Visit 10/29/2016 [facility] K92.2 Gastrointestinal 1:19p Assoc,pc Cynthia, [employer] FARM MANAGER hemorrhage, Hospitalists unspecified D64.9 Anemia, unspecified G20 Parkinson's disease R55 Syncope and collapse Office Visit 10/28/2016 [facility] K92.2 Gastrointestinal 10:07a Assoc,pc Cynthia, [employer] hemorrhage, Hospitalists unspecified D64.9 Anemia, unspecified G20 Parkinson's disease R55 Syncope and collapse Office Visit 10/27/2016 1:52p [facility] uGstavo Lopes I47.2 Ventricular Nell Izquierdo. tachycardia R55 Syncope and collapse Office Visit 10/27/2016 [facility] K92.2 Gastrointestinal 10:06a Assoc,pc Marie, [employer] hemorrhage, Hospitalists unspecified D64.9 Anemia, unspecified G20 Parkinson's disease R55 Syncope and collapse Office Visit 10/26/2016 1:53p [facility] Gustavo Lopes R55 Syncope and Addison Izquierdo collapse I48.0 Paroxysmal atrial fibrillation I47.2 Ventricular tachycardia Office Visit 10/26/2016 [facility] K92.2 Gastrointestinal 10:06a Assoc,pc Marie, [employer] hemorrhage, Hospitalists unspecified D64.9 Anemia, unspecified G20 Parkinson's disease R55 Syncope and collapse Office Visit 10/25/2016 [facility] K92.2 Gastrointestinal 10:05a Assoc,pc Marie, [employer] hemorrhage, Hospitalists unspecified D64.9 Anemia, unspecified G20 Parkinson's disease R55 Syncope and collapse Office Visit 10/24/2016 [facility] K92.2 Gastrointestinal 10:05a Assoc,pc Marie, [employer] hemorrhage, Hospitalists unspecified D64.9 Anemia, unspecified G20 Parkinson's disease Office Visit 10/23/2016 [facility] Dafne Lord, K92.2 Gastrointestinal 10:04a Assoc,pc N.P. hemorrhage, Hospitalists unspecified D64.9 Anemia, unspecified G20 Parkinson's disease Office Visit 09/23/2016 3:00p [facility] Internal Chase Alejandro, I10 Essential ( primary) Medicine - [employer] hypertension [place] S09.90xA Unspecified injury of head, initial encounter Office Visit 08/22/2016 1:45p [place] G2Anders [facility] M.D. disease G25.81 Restless legs syndrome G43.009 Migraine w/o aura, not intractable, w/o status migrainosus M25.532 Pain in left wrist R29.6 Repeated falls Office Visit 08/07/2016 9:40a [facility] Internal Rick Mcadams4.5 Low back Brigette Sutherland M.D. 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 disease G25.81 Restless legs syndrome M54.5 Low back pain M79.661 Pain in right lower leg S80.811S Abrasion, right lower leg, sequela Office Visit 05/01/2016 11:00a [facility] Joey Longoria I49.5 Sick sinus Of [facility] Bull M.D. syndrome Z95.0 Presence of cardiac pacemaker Office Visit 04/09/2016 10:15a Nella Banks G20 [facility] M.D. disease G25.81 Restless legs syndrome R40.0 Somnolence Office Visit 02/21/2016 9:15a [facility] Young Dunlap I48.0 Paroxysmal atrial Of [facility] Mittal M.D., fibrillation FACC, FASNC Office Visit 10/19/2015 10:45a Nella Banks G2Anders Parkinson's disease [facility] M.D. G25.81 Restless legs syndrome Office Visit 06/15/2015 10:15a Nella Banks G20 [facility] M.D. disease G25.81 Restless legs syndrome R42 Dizziness and giddiness Office Visit 03/14/2015 1:45p [facility] Youngdelphine Dunlap 427.31 Atrial Of [facility] Mittal M.D., Fibrillation FACC, FASNC Office Visit 02/09/2015 9:45a Nella Banks 332.0 Paralysis [facility]ans [facility] M.D. 333.94 Restless Leg Syndrome 783.21 Loss Of Weight Office Visit 10/13/2014 10:15a Nella Banks 332.0 Paralysis [facility] M.D. Agitans 333.94 Restless Leg Syndrome Office Visit 08/03/2014 1:45p [facility] Youngdelphine Dunlap 427.31 Atrial Addison Mittal, Fibrillation FACC, FASNC Office Visit 06/28/2014 9:45a Nella Banks 332.0 Paralysis [facility] M.D. 333.94 Restless Leg Syndrome Office Visit 08/26/2013 1:15p Nella Banks 332.0 Paralysis [facility] M.D. Agitans 333.94 Restless Leg Syndrome 729.1 Myalgia & Myositis Unspec Office Visit 07/12/2013 11:45a [facility] Young Dunlap 785.1 Palpitations Of [facility]in Mittal M.D., [facility], [facility] Office Visit 07/09/2013 9:30a [facility] Azalea MGrant 332.0 Paralysis [facility] M.D. 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 Office Visit 12/08/2012 11:30a [place] [facility] Azalea MGrant 332.0 Paralysis [facility] M.D. Office Visit 11/16/2012 8:45a [facility] Young Dunlap 414.9 Ischemic Heart Of [facility]in Mittal M.D., Disease Chronic FAC, [facility] Unspec Office Visit 10/12/2012 11:15a [facility] Young Dunlap 427.31 Atrial Of Christin Mittal M.D., Fibrillation [facility], [facility] Office Visit 08/28/2012 8:15a [facility] Young Dunlap 414.9 Ischemic Heart Of [facility]in Mittal M.D., Disease Chronic [facility], [facility] Unspec 427.31 Atrial Fibrillation Office Visit 05/29/2012 [place] 332.0 Paralysis Agitans 3:00p Services Of [facility] Junior M.D. 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 at [facility] Internal Medicine [facility]07/27/2018 9:45 am - Young Mittal M.D., [facility] , [facility] at [facility]09/10/2018 10:15 am - Aamir Ross M.D. at [facility]07/24/2018 - Eva Urena N.P.F07.81 Postconcussional syndromeNew Therapy:Physical TherapyComments:You have vertigo related to hitting your head. I have referred you for physical therapy to help you with balance and gait.
--- OUTSIDE RECORDS SUMMARY | 2018-07-31 12:49 | XMS REPORT | Continuity of Care Document ---
:1940 External Reference #:[id number] Author Name Vicky Cornejo Care Team Providers Name Role Phone Douglas Damon MD Primary Care Physician Unavailable Payers Type Date Identification Numbers Payment Provider Subscriber Effective: 2002 Policy Number: [id number] Medicare Liudmila Phelan PayID: [id number] [address] [place] [address] Policy Number: [id number] [facility] Liudmila Phelan PayID: [id number] [address] [place] [address] Advance Directives Type Date Description Status Comment [facility] Current and Verified Problems Date Description Provider Status Onset: 02/21/2016 Paroxysmal atrial fibrillation Young Mittal M.D., Active [facility] Onset: 02/09/2015 Parkinson's disease Azalea Junior M.D. Active Onset: 02/09/2015 Unexplained weight loss Azalea Junior M.D. Active Onset: 06/21/2016 Low back pain Azalea Junior M.D. Active Onset: 06/21/2016 Restless legs Azalea Junior M.D. Active Onset: 09/25/2016 Essential hypertension Douglas Damon M.D. Active Onset: 11/13/2016 Orthostatic hypotension Douglas Damon M.D. Active Onset: 11/20/2016 Anemia Douglas Damon M.D. 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 Active Onset: 07/11/2017 Cardiac pacemaker in situ Matthew Lantigua, Active [place],FACP Onset: 07/15/2017 Chronic atrial fibrillation [facility] Mittal M.D., [facility] Onset: 08/27/2017 Disorder of skin and/or Douglas Damon M.D. Active subcutaneous tissue Onset: 08/27/2017 Abnormal gait Douglas Damon M.D. Active Onset: 09/16/2017 Chest pain Young Mittal M.D., [facility] Onset: 10/15/2017 Mixed hyperlipidemia Douglas Damon M.D. [...] 08/03/2014 Atrial fibrillation Young Mittal M.D., Inactive [facility] Inactive: 06/16/2017 Onset: 06/15/2015 Dizziness Azalea Junior [...] Misc 1units 4 wheels, Carlos 2017 brakes Setswana, and [employer] seat--for daily use Roller Walker 06/11/ Active Misc use daily G20 Azalea Banks 2015 as selwyn Junior M.D. to prevent falls R29.6 Carbidopa-Levodopa 01/03/2014 Active Tablets 25-100mg 195tabs take 2 Aamir Ross M.D. 8am 1.5 tabs noon 1 tab 4pm 2 tabs 8pm Amlodipine Besylate Active Tablets 5mg 1 Unknown tablet po daily Am Omeprazole Active Capsules DR 40mg 180caps 1 by [place] mouth Nelson, twice a M.D. day Hydrocodone Active Tablets 5-325mg 1 by Unknown Bitartrate/Acetamin mouth ophen every 12 hrs as needed Lisinopril 05/06/2018 Hx Tablets 10mg 30tabs 1 by I Eva - mouth 1 Varn, N.P. 06/10/2018 every 0 day [place] 12/27/2017 Hx Tablets 5-325mg 1 tab Unknown - tid prn 03/26/2018 Amlodipine Besylate 09/23/2017 Hx Tablets 5mg 90tabs 1 by [place] - mouth Pachika, 12/29/2017 every M.D. day Amlodipine Besylate 09/18/2017 Hx Tablets 2.5mg 90tabs 1 by Matthew Longoria - mouth Louisa, 09/23/2017 every M.D.,FACP day Klor-Con M10 07/29/2017 Hx Tablets ER 10Meq 14tabs 1 by Douglas - mouth Pachikara, 09/12/2017 every M.D. day Magnesium-Oxide 07/22/2017 Hx Tablets 400(241.3 90tabs 1 by Matthew Sutherland mg) mg mouth Louisa, 07/12/2018 every M.D.,FACP evening Klor-Con M10 07/11/2017 Hx Tablets ER 10Meq 14tabs 1 by Matthew Longoria - mouth [place]a, 07/22/2017 every M.D.,FACP day Amlodipine Besylate 06/16/2017 Hx Tablets 2.5mg 30tabs 1 by Matthew Longoria - mouth [place]a, 06/16/2017 every M.D.,FACP day Eliquis 04/08/2017 Hx [...] 1 by Chase Allen, - mg mouth [employer] 04/22/2017 every day Hydrocodone-Acetami 12/25/2016 Hx Tablets 5-325mg 10tabs 1 tab M Douglas nophen - three 5 Pachikara, 10/15/2017 times a 1 M.D. day as . needed 1 pain 6 Amlodipine Besylate 12/11/2016 Hx Tablets 2.5mg 30tabs Take [place] - two Pachikara, 05/21/2017 TABLETs M.D. By Mouth Every Morning (no longer taking) Amlodipine Besylate 11/27/2016 Hx Tablets 5mg 30tabs 1 by Douglas - mouth Pachikara, 12/11/2016 every M.D. day Proair Respiclick 11/20/2016 Hx Aerosol 108(90Bas 1units 2 puffs R [place] - e) 3 times 0 Pachikara, 2017 mcg/Act a day 5 M.D. with spacer Fluticasone 11/20/2016 Hx Suspension 50mcg/Act 9.900ml 2 R Douglas Propionate - sprays 0 Pachika, 12/25/2016 each 5 M.D. nostril daily Doxycycline Hyclate 11/13/2016 Hx Capsules 100mg 20caps 1 cab J [place] - twice a 2 Pachikara, 11/22/2016 day 0 M.D. . 9 Prednisone 11/13/2016 Hx Tablets 10mg 20tabs 4 J [place] - [id number] 2 Pachikara, 11/22/2016 ys 0 M.D. [id number] . ays,2ta 9 [id number] ,1tabxd ay. Losartan 11/12/2016 Hx Tablets 50-12.5mg 30tabs take [place] Potassium/Hydrochlo - one tab [place]ara, rothiazide 11/13/2016 [...] 0.25mg 60tabs 2 PO Azalea Banks - [facility] Sandi, 06/18/2014 M.DGrant Metoprolol 03/05/2013 Hx [...] 60tabs 1 by Douglas kc - aron Traivsika, 07/25/2016 twice M.D. daily prn. Lisinopril Hx Tablets 10mg 1 by Unknown - mouth 11/05/2016 every day Pain Relief 8 Hour Hx Tablets ER 650mg 1 by Unknown - mouth 12/21/2017 three times a day as needed for pain Sucralfate Hx Tablets 1gm 1 Unknown - tablet 04/28/2017 by mouth at 6am,11a m, 4pm, and 9pm Omeprazole Hx Capsules DR 20mg 60caps take [place] matthew Travisikara, 01/01/2018 capsule M.D. by mouth [...] Code Status Date Vaccine Reaction Lot # [id number] Given 05/21/2017 Influenza Virus Vaccine, [id number] Quadrivalent, Split, Preservative Free [id number] Given 05/21/2017 Pneumococcal Conjugate [id number] Vaccine 13 Valent For Intramuscular Use [id number] Given 08/07/2016 Zoster (Zostavax) no immediate reaction [id number] noted ... hh Vital Signs Date Vital [...] Test Result H/L Range Note Laboratory test [facility] Surgical Interface SEE RESULT 1 finding [address] [place] [address] [phone] Inr/Protime [facility] Inr 0.90 N 0.77-1.[address] [place] [address] [phone] Lipid Profile [facility] Triglycerides 127 mg/dL 2, 3 (Trig/Chol/HDL) [address] [place] [address] [phone] Cholesterol 151 mg/dL 4 HDL Cholesterol 64.3 mg/dL 5 LDL Cholesterol 61 mg/dL 6 Laboratory test 09/06/2017 [facility] Lactic Acid 0.8 mmol/L N 0.5-2.0 [address] [place] [address] [phone] CBC Auto Diff 09/06/2017 [facility] White Blood 9.1 10^3/uL N 3.5-10.[address] [place] [address] [phone] Red Blood Count 3.57 10^6/uL Low 4.0-5.4 [...] Cells % 0 Comp Metabolic Panel 09/06/2017 [facility] Sodium 139 mmol/L N 133-[address] [place] [address] [phone] Potassium 3.9 mmol/L N 3.5-5.0 Chloride 102 [...] Egfr 73.0 >60 8 Laboratory test 09/06/2017 [facility] Magnesium 2.0 mg/dL N 1.9-2.7 finding [address] [place] [address] [phone] Troponin-I (TnI) 0.02 ng/mL <0.04 B-Type Natriuretic Peptide BNP 512 pg/mL High 9 Inr/Protime 09/06/2017 [facility] Inr 0.98 N 0.77-1.02 [address] [place] [address] [phone] Laboratory test 09/06/2017 [facility] Partial 29.7 seconds N 26.0-36.3 finding 101 [facility] [place] [address] PTT [phone] Basic Metabolic 07/12/2017 [facility] Sodium 141 mmol/L N 133- 145 Panel [address] [place] [address] [phone] Potassium 3.4 mmol/L Low 3.5-5.0 Chloride 102 mmol/L N 101-111 Co2 Carbon Dioxide 30 mmol/L N 22-32 Anion Gap 9 mmol/L N 2-11 Glucose 121 mg/dL High 70-100 Blood Urea Nitrogen 24 mg/dL N 6-24 Creatinine 0.89 mg/dL N 0.51-0.95 BUN/Creatinine Ratio 27.0 High 8-20 Calcium 9.2 mg/dL N 8.6-10.3 Egfr Non- 61.2 >60 Egfr 78.7 >60 10 Laboratory test 07/12/2017 [facility] Magnesium 1.5 mg/dL Low 1.9-2.7 finding [address] [place] [address] [phone] Inr/Protime 07/12/2017 [facility] Inr 0.99 N 0.89-1.11 [address] [place] [address] [phone] Urinalysis 06/16/2017 [facility] Urine Color Yellow N Profile [address] [place] [address] [phone] Urine Appearance Clear N Urine Specific [place] 1.013 N 1.010-1.030 Urine pH 6.0 N [...] Present Abnormal Absent Urine Culture And 06/16/2017 [facility] Urine Culture SEE RESULT [address] [place] [address] [phone] CBC Auto Diff 06/15/2017 [facility] White Blood 6.9 10^3/uL N 3.5-[address] Count 0.8 [place] [address] [phone] Red Blood Count 3.71 10^6/uL Low 4.0-5.4 [...] Blood Cells % 0 N Inr/Protime 06/15/2017 [facility] Inr 0.98 N 0.89-1.[address] [place] [address] [phone] Laboratory test 06/15/2017 [facility] Partial 26.6 seconds N 26.0-36.[address] [place] [address] PTT [phone] Comp Metabolic 06/15/2017 [facility] Sodium 140 mmol/L N 133- 145 Panel [address] [place] [address] [phone] Potassium 2.8 mmol/L Low 3.5-5.0 Chloride 102 [...] N >60 12 Type & Screen 06/15/2017 [facility] Patient Blood Type O Positive N [address] [place] [address] [phone] Antibody Screen NEGATIVE N Inr/Protime 05/12/2017 [facility] Inr 0.91 N 0.89-1.11 [address] [place] [address] [phone] Laboratory test 05/12/2017 [facility] Partial 27.0 seconds N 26.0-36.[address] [place] [address] PTT [phone] Lactic Acid 1.1 mmol/L N 0.5-2.0 13 CBC Auto Diff 05/12/2017 [facility] White Blood 8.7 10^3/uL N 3.5-10.[address] [place] [address] [phone] Red Blood Count 4.08 10^6/uL N 4.0-5.4 [...] % 0 N Comp Metabolic Panel 05/12/2017 [facility] Sodium 140 mmol/L N 133-[address] [place] [address] [phone] Potassium 3.0 mmol/L Low 3.5-5.0 Chloride 104 [...] 75.7 N >60 14 Laboratory test 05/12/2017 [facility] Magnesium 2.0 mg/dL N 1.9-2.[address] [place] [address] [phone] Troponin-I (TnI) 0.00 ng/mL N <0.04 TSH (Thyroid Stim Horm) 0.68 mcIU/mL N 0.34-5.60 Laboratory test 03/12/2017 [facility] Lactic Acid 0.8 mmol/L N 0.5-2.0 [address] [place] [address] [phone] CBC Auto Diff 03/12/2017 [facility] White Blood 11.4 High 3.5- 10.[address] Count 10^3/[place] [address] [phone] Red Blood Count 4.12 10^6/uL N 4.0-5.4 [...] % 0 N Comp Metabolic Panel 03/12/2017 [facility] Sodium 138 mmol/L N 133-[address] [place] [address] [phone] Potassium 3.9 mmol/L N 3.5-5.0 Chloride 104 [...] 76.7 N >60 16 Lipid Profile 03/12/2017 [facility] Triglycerides 98 mg/dL N 17 (Trig/Chol/HDL) [address] [place] [address] [phone] Cholesterol 185 mg/dL N 18 HDL Cholesterol 59.0 mg/dL N 19 LDL Cholesterol 106 mg/dL N 20 Laboratory test 03/12/2017 [facility] Troponin-I 0.01 ng/mL N <0.[address] (TnI) [place] [address] [phone] Inr/Protime 03/12/2017 [facility] Inr 0.94 N 0.89-1.[address] [place] [address] [phone] Laboratory test 03/12/2017 [facility] Partial 24.9 Low 26.0- 36.[address] [place] [address] PTT [phone] Urinalysis 03/12/2017 [facility] Urine Color Straw N Profile [address] [place] [address] [phone] Urine Appearance Cloudy N Urine Specific [place] 1.010 N 1.010-1.030 Urine pH 7.0 N [...] Present Abnormal Absent Type & Screen 03/12/2017 [facility] Patient Blood Type O Positive N [address] [place] [address] [phone] Antibody Screen NEGATIVE N Laboratory test 03/12/2017 [facility] TSH (Thyroid 0.61 mcIU/mL N 0.34-5.[address] Stim Horm) [place] [address] [phone] CBC Auto Diff 12/31/2016 [facility] White Blood 7.6 10^3/uL N 3.5-10.[address] [place] [address] [phone] Red Blood Count 3.55 10^6/uL Low 4.0-5.4 [...] % 0 N Basic Metabolic Panel 12/31/2016 [facility] Sodium 137 mmol/L N 133-[address] [place] [address] [phone] Potassium 4.4 mmol/L N 3.5-5.0 Chloride 104 [...] N >60 21 CBC Auto Diff 11/20/2016 [facility] White Blood 10.7 10^3/uL N 3.5-10.[address] [place] [address] [phone] Red Blood Count 3.03 10^6/uL Low 4.0-5.4 [...] Cells % 0 N Laboratory test 10/24/2016 [facility] Surgical SEE RESULT [address] [place] [address] [phone] Laboratory test 10/23/2016 [facility] Lactic Acid 0.7 mmol/L N 0.5-2. [address] 0 [place] [address] [phone] Comp Metabolic 10/23/2016 [facility] Sodium 136 mmol/L N 133- [address] 5 [place] [address] [phone] Potassium 4.1 mmol/L N 3.5-5.0 Chloride 104 [...] Egfr 28.2 N >60 24 Inr/Protime 10/23/2016 [facility] Inr 4.03 High 0.89-1.[address] [place] [address] [phone] CBC Auto Diff 10/23/2016 [facility] White Blood 9.8 N 3.5- 10.[address] Count 10^3/[place] [address] [phone] Red Blood Count 2.54 10^6/uL Low 4.0-5.4 [...] Cells % 0 N Laboratory test 10/23/2016 [facility] Magnesium 2.4 mg/dL N 1.9-2.[address] [place] [address] [phone] Troponin-I (TnI) 0.01 ng/mL N <0.04 25 TSH (Thyroid Stim Horm) 0.35 mcIU/mL N 0.34-5.60 Urinalysis Profile 10/23/2016 [facility] Urine Color Yellow N [address] [place] [address] [phone] Urine Appearance Clear N Urine Specific [place] 1.011 N 1.010-1.030 Urine pH 5.0 N [...] Present Abnormal Absent Urine Culture And 10/23/2016 [facility] Urine SEE RESULT [address] [place] [address] [phone] Inr/Protime 10/07/2016 [facility] Inr 2.99 High 0.89- [address] 1.11 [place], [place] [address] [phone] Inr/Protime 09/25/2016 [facility] Inr 3.98 High 0.89- [address] 1.11 [place], [place] [address] [phone] Inr/Protime 09/19/2016 [facility] Inr 3.51 High 0.89- [address] 1.11 [place] [address] [phone] Inr/Protime 08/16/2016 [facility] Inr 2.85 High 0.89- [address] 1[address]11 [place] [address] [phone] Comp Metabolic 08/16/2016 [facility] Sodium 138 mmol/L N 133- [address] [place] [address] [phone] Potassium 4.3 mmol/L N 3.5-5.0 Chloride 103 [...] 77.9 N >60 28 Lipid Profile 08/16/2016 [facility] Triglycerides 142 mg/dL N 29 (Trig/Chol/HDL) [address] [place] [address] [phone] Cholesterol 224 mg/dL N 30 HDL Cholesterol 55.5 mg/dL N 31 LDL Cholesterol 140 mg/dL N 32 Inr/Protime 07/23/2016 [facility] Inr 2.85 High 0.89-1.11 [address] [place] [address] [phone] Basic Metabolic 07/18/2016 [facility] Sodium 137 mmol/L N 133- 145 33 Panel [address] [place] [address] [phone] Potassium 4.9 mmol/L N 3.5-5.0 Chloride 104 mmol/L N 101-111 Co2 Carbon Dioxide 27 mmol/L N 22-32 Anion Gap 6 mmol/L N 2-11 Glucose 102 mg/dL High 70-100 Blood Urea Nitrogen 33 mg/dL High 6-24 Creatinine 0.94 mg/dL N 0.51-0.95 BUN/Creatinine Ratio 35.1 High 8-20 Calcium 9.4 mg/dL N 8.6-10.3 Egfr Non- 57.6 N >60 Egfr 74.1 N >60 34 Laboratory test 07/18/2016 [facility] Magnesium 2.3 mg/dL N 1.9-2.7 35 finding [address] [place] [address] [phone] Inr/Protime 07/01/2016 [facility] Inr 1.91 High 0.89-1.11 36 [address] [place] [address] [phone] Basic Metabolic 07/01/2016 [facility] Sodium 138 mmol/L N 133- 145 Panel [address] [place] [address] [phone] Potassium 4.3 mmol/L N 3.5-5.0 Chloride 102 mmol/L N 101-111 Co2 Carbon Dioxide 29 mmol/L N 22-32 Anion Gap 7 mmol/L N 2-11 Glucose 104 mg/dL High 70-100 Blood Urea Nitrogen 23 mg/dL N 6-24 Creatinine 0.94 mg/dL N 0.51-0.95 BUN/Creatinine Ratio 24.5 High 8-20 Calcium 9.2 mg/dL N 8.6-10.3 Egfr Non- 57.6 N >60 Egfr 74.1 N >60 37 Laboratory test 07/01/2016 [facility] Magnesium 2.1 mg/dL N 1.9-2.[address] [place] [address] [phone] Inr/Protime 06/21/2016 [facility] Inr 2.89 High 0.89-1.[address] [place] [address] [phone] Inr/Protime 06/13/2016 [facility] Inr 3.30 High 0.89-1.[address] [place] [address] [phone] Inr/Protime 06/07/2016 [facility] Inr 1.58 High 0.89-1.[address] [place] [address] [phone] Inr/Protime 05/29/2016 [facility] Inr 1.61 High 0.89-1.[address] [place] [address] [phone] Laboratory test 05/07/2016 [facility] Surgical SEE RESULT [address] [place] [address] [phone] Basic Metabolic 05/03/2016 [facility] Sodium 138 mmol/L N 133- [address] [place] [address] [phone] Potassium 4.7 mmol/L N 3.5-5.0 Chloride 105 mmol/L N 101-111 Co2 Carbon Dioxide 25 mmol/L N 22-32 Anion Gap 8 mmol/L N 2-11 Glucose 95 mg/dL N 70-100 Blood Urea Nitrogen 31 mg/dL High 6-24 Creatinine 1.21 mg/dL High 0.51-0.95 BUN/Creatinine Ratio 25.6 High 8-20 Calcium 8.9 mg/dL N 8.6-10.3 Egfr Non- 43.0 N >60 Egfr 55.3 N >60 39 Inr/Protime 05/03/2016 [facility] Inr 2.03 High 0.89-1.[address] [place] [address] [phone] CBC Auto Diff 05/03/2016 [facility] White Blood 8.4 N 3.5- 10.8 DRIVE Count 10^3/[place] [address] [phone] Red Blood Count 3.32 10^6/uL Low 4.0-5.4 [...] Cells % 0 N Pre Cath 05/03/2016 [facility] Partial 31.8 seconds N 26.0- 36.[address] [place] [address] PTT [phone] CBC Auto 04/09/2016 [facility] White Blood 6.1 10^3/uL N 3.5- 10.[address] [place] [address] [phone] Red Blood Count 3.53 10^6/uL Low 4.0-5.4 [...] % 0 N Comp Metabolic Panel 04/09/2016 [facility] Albumin 3.8 g/dL N 3.2-5.[address] [place] [address] [phone] Total Bilirubin 0.40 mg/dL N 0.2-1.0 Sodium [...] 56.4 N >60 40 Laboratory test 04/09/2016 [facility] Free T4 (Free 0.88 ng/dL N 0.61-1.[address] Thyroxine) [place] [address] [phone] TSH (Thyroid Stim Horm) 0.50 mcIU/mL N 0.34-5.60 Vitamin B12 411 pg/mL N 180-914 41 Inr/Protime 11/07/2015 [facility] Inr 2.32 High 0.89-1.11 [address] [place] [address] [phone] Laboratory test 01/02/2015 [facility] Inr 1.58 High 0.78-1.07 finding [address] [place] [address] [phone] Comp Metabolic 06/02/2014 [facility] Sodium 137 mmol/L N 133- 145 Panel [address] [place] [address] [phone] Potassium 4.6 mmol/L N 3.7-5.6 Chloride 101 [...] 71.8 N >60 42 Lipid Profile 06/02/2014 [facility] Triglycerides 144 mg/dL N 43 (Trig/Chol/HDL) [address] [place] [address] [phone] Cholesterol 165 mg/dL N 44 HDL Cholesterol 39.6 mg/dL N 45 LDL Cholesterol 97 mg/dL N 46 Laboratory test 06/02/2014 [facility] Vitamin B12 209 pg/mL N 180-914 47 finding [address] [place] [address] [phone] TSH (Thyroid Stimulating Horm) 0.44 IU/mL N 0.34-5.60 CRP High Sensitivity 13.43 mg/L N 48 CBC Auto Diff 06/02/2014 [facility] White Blood 8.0 10^3/uL N 4.8-10.8 [address] [place] [address] [phone] Red Blood Count 3.44 10^6/uL Low 4.0-5.4 [...] Blood Cells % 0.1 N Inr/Protime 06/02/2014 [facility] Inr 1.65 High 0.85-1.06 [place] [address] [phone] Laboratory test 03/28/2014 [facility] Inr 2.50 High 0.85-1.06 [place] [address] [phone] Laboratory test 03/18/2014 [facility] Inr 1.42 High 0.85-1.06 [place] [address] [phone] Laboratory test 02/24/2014 [facility] Inr 3.41 High 0.85-1.06 [place] [address] [phone] Laboratory test 02/04/2014 [facility] Inr 1.99 High 0.85-1.06 [place] [address] [phone] Laboratory test 01/20/2014 [facility] Inr 1.67 High 0.85-1.[address] [place] [address] [phone] Laboratory test 11/01/2013 [facility] Inr 2.34 High 0.85-1.[address] [place] [address] [phone] Inr/Protime 10/04/2013 Inr 3.57 High 0.85-1.06 Laboratory test 07/29/2013 [facility] Inr 1.95 High 0.85-1.06 [address] [place] [address] [phone] Laboratory test 07/22/2013 [facility] C Reactive < 0.5 Less than 0.[address] [place] [address] Protein mg/[place] [address] [phone] Erythrocyte Sed Rate 15 mm/Hr 0-40 Jolly (Anti-Nuclear AB) Screen Negative Negative 50 Rheumatoid Factor <15 IU/mL <15 51 Laboratory test 07/22/2013 [facility] Inr 4.62 High 0.85-1.06 [address] [place] [address] [phone] Laboratory test 06/02/2013 [facility] Inr 3.08 High 0.87-0.[address] [place] [address] [phone] Basic Metabolic 06/02/2013 [facility] Sodium 138 mmol/L 133- [address] [place] [address] [phone] Potassium 4.4 mmol/L 3.5-5.0 Chloride 104 mmol/L 101-111 Co2 Carbon Dioxide 27.0 mmol/L 22-32 Anion Gap 7.0 mmol/L 2-11 Glucose 88 mg/dL 70-100 Blood Urea Nitrogen 17 mg/dL 6-24 Creatinine 1.00 mg/dL 0.50-1.40 BUN/Creatinine Ratio 17.0 8-20 Calcium 9.2 mg/dL 8.1-9.9 Egfr Non- 54.1 >60 Egfr 69.5 >60 53 Laboratory test 06/02/2013 [facility] Magnesium 2.3 mg/dL 1.7 -2.[address] [place] [address] [phone] Laboratory test 04/07/2013 [facility] Inr 2.42 High 0.87-0.[address] [place] [address] [phone] Laboratory test 03/29/2013 [facility] Inr 1.66 High 0.87-0.[address] [place] [address] [phone] Laboratory test 03/22/2013 [facility] Inr 1.79 High 0.87-0.[address] [place] [address] [phone] Basic Metabolic 01/06/2013 [facility] Sodium 142 mmol/L 133- [address] [place] [address] [phone] Potassium 3.8 mmol/L 3.5-5.0 Chloride 109 mmol/L 101-111 Co2 Carbon Dioxide 26.0 mmol/L 22-32 Anion Gap 7.0 mmol/L 2-11 Glucose 119 mg/dL High 70-100 Blood Urea Nitrogen 15 mg/dL 6-24 Creatinine 1.00 mg/dL 0.50-1.40 BUN/Creatinine Ratio 15.0 8-20 Calcium 9.2 mg/dL 8.1-9.9 Egfr Non- 54.2 >60 Egfr 69.7 >60 54 Laboratory test 01/06/2013 [facility] Magnesium 2.1 mg/dL 1.7 -2.[address] [place] [address] [phone] Inr/Protime 01/06/2013 [facility] Inr 2.24 High 0.87-0.[address] [place] [address] [phone] Laboratory test 08/21/2012 [facility] Inr 3.56 High 0.82-1.17 [address] [place] [address] [phone] Basic Metabolic 05/28/2012 [facility] Sodium 138 mmol/L 133- [address] [place] [address] [phone] Potassium 4.2 mmol/L 3.5-5.0 Chloride 110 mmol/L 101-111 Co2 Carbon Dioxide 26.0 mmol/L 22-32 Anion Gap 2.0 mmol/L 2-11 Glucose 100 mg/dL 70-100 Blood Urea Nitrogen 17 mg/dL 6-24 Creatinine 0.90 mg/dL 0.50-1.40 BUN/Creatinine Ratio 18.9 8-20 Calcium 9.1 mg/dL 8.1-9.9 Egfr Non- 61.2 >60 Egfr 78.7 >60 56 Laboratory test 05/28/2012 [facility] Magnesium 2.5 mg/dL 1.7 -2.6 finding [facility] [place] [place] [address] [phone] Laboratory test 05/28/2012 [facility] Inr 2.06 High 0.82-1.17 57 finding [address] [place] [address] [phone] 1 SEE RESULT BELOW Name: LIUDMILA PHELAN : [address]: Jayme Guzman MD Acct: [id number] Unit: [id number] AGE: 77 Location: [place] [address] Re12/25/17 Dis: 12/27/17 SEX: F Status: DIS IN SPEC: [id number] NATE: 12/26/17- SUBM DR: Bibiana Andrews DO REQ: [id number] RECD: 12/26/17 STATUS: BLAKE TRACY DR: Jayne [...] CONTINUED ON NEXT PAGE DEPARTMENT OF PATHOLOGY, [address] [place] [address] Enrrique Roberts M.D. Director [facility] # [id number] RUN DATE: 12/30/17 [facility] LAB LIVE PAGE 2 Patient: LIUDMILA PHELAN [id number] (Continued) GROSS DESCRIPTION (Continued) Signed by and Reported on: Anali Malone MD 12/30/17 1131 END OF REPORT DEPARTMENT OF PATHOLOGY, [address] [place] [address] Enrrique Roberts M.D. Director [facility] # [id number] 2 FASTING 10 HOUR 3 Desirable: <150 Borderline High: 150-199 High: 200-499 Very High: >500 4 Desirable: <200 Borderline High: 200-239 High: >239 5 Low: <40 Desirable: 40-60 High: >60 6 Desirable: <100 Near Optimal: 100-129 Borderline High: 130-159 High: 160-189 Very High: >189 7 [facility] Severe Sepsis and Septic Shock Management [...] [address]: Vish Clement MD Acct: [id number] Unit: [id number] AGE: 77 Location: ED Re06/15/17 SEX: F Status: REG ER SPEC: [id number] NATE: 06/16/[address]: Vish Clement MD REQ: [id number] RECD: 06/16/17 STATUS: INDIO TRACY DR: Douglas Damon MD _ SOURCE: URINE [facility]: ORDERED: Urine Culture Procedure Result Reported Site Urine Culture Final 06/17/17 0839 ML No growth of clinically significant organisms * ML - MAIN LAB ([facility]) . END OF REPORT * ML=Testing performed at Main Lab DEPARTMENT OF PATHOLOGY, [address] [place] [address] Enrrique Roberts M.D. Director [facility] # [id number] 12 Because ethnic data is not always [...] 5 Kidney failure <15 (or dialysis) 13 [facility] Severe Sepsis and Septic Shock Management [...] 5 Kidney failure <15 (or dialysis) 15 [facility] Severe Sepsis and Septic Shock Management [...] [address]: Barbi Goff MD Acct: [id number] Unit: [id number] AGE: 76 Location: [place] [address] Re10/24/16 SEX: F Status: ADM IN SPEC: [id number] NATE: 10/24/16-[address] [facility] DR: Venkata Bearden MD REQ: [id number] RECD: 10/24/16271 STATUS: BLAKE TRACY DR: Dagoberto Damon MD [...] performed at Main Lab DEPARTMENT OF PATHOLOGY, [address] [place] [address] Enrrique Roberts M.D. Director [facility] # [id number] 23 [facility] Severe Sepsis and Septic Shock Management [...] 25 99th percentile=0.04 ng/mL Troponin results at [facility] and [facility] are not interchangeable. 26 SEE RESULT BELOW Name: LIUDMILA PHELAN : [address]: Singh Arvizu MD Acct: [id number] Unit: [id number] AGE: 76 Location: [place] [address]- Re10/24/16 SEX: F Status: ADM IN SPEC: [id number] NATE: 10/23/16-[address] [facility] DR: Aniceto Espinosa MD REQ: [id number] RECD: 10/23/16 STATUS: INDIO TRACY DR: Douglas Damon MD _ SOURCE: URINE SPDESC: ORDERED: Urine Culture Procedure Result Reported Site Urine Culture Final 10/25/16- 0812 ML Organism 1 PROTEUS MIRABILIS [place] Count 10-25,000 (Moderate) CFU/ML 1. PROTEUS MIRABILIS [...] antibiotic reporting. * ML - MAIN LAB ([facility]) . END OF REPORT * ML=Testing performed at Main Lab DEPARTMENT OF PATHOLOGY, [address] [place] [address] Enrrique Roberts M.D. Director [facility] # [id number] STANDING ORDER ENTERED 05/25/16 EXPIRES 11/12/16 [...] [address]: Joey Bull MD Acct: [id number] Unit: [id number] AGE: 76 Location: [facility] Re05/07/16 SEX: F Status: REG REF SPEC: [id number] NATE: 05/07/[address] [facility] DR: Joey Bull MD REQ: [id number] RECD: 05/07/16 STATUS: SOUT _ ORDERED: LEVEL I FINAL DIAGNOSIS Pacemaker generator: Foreign body (pacemaker generator) (Gross diagnosis). PRE-OPERATIVE DIAGNOSIS Sick sinus syndrome, E.R.I. GROSS DESCRIPTION The specimen is received fresh with no source identified, and consists of a 4.7 x 4.5 x 0.6 cm silver metallic remote medical coder. The following inscription is identified: [employer] Sensia [id number] DDDR SN [id number] [facility]. Per established hospital medical staff protocol, no tissue is submitted. Gross only. Signed (signature on file) Anali Malone MD [id number] END OF REPORT * ML=Testing performed at Main Lab DEPARTMENT OF PATHOLOGY, [address] [place] [address] Enrrique Roberts M.D. Director [facility] # [id number] 39 Because ethnic data is not always [...] range effective 13. 50 @Sample frozen by [id number] at 1056 on 07/22/13. 51 Test Performed by: [place] [address] Hourly Sign Language Interpreter: Carmine Loomis III, M.D. 52 Please note [...] 3.5 Procedures Date Code Description Status 05/26/2018 60828 Pace Maker Eval W/Iterative Adjment Dual Lead Completed 05/26/2018 80521 Pace Maker Eval W/Iterative Adjment Dual Lead Completed 05/08/2018 21578 EKG Tracing & Interpretation Completed 05/01/2018 891705872 Diabetic Retinal Eye Exam Completed 04/06/2018 29441 EKG Tracing & Interpretation Completed 01/01/2018 62456 Remove Impacted Cerumen Completed 12/26/2017 71843 Endoscopy Upper GI Biopsy Completed 12/10/2017 98295 Pace Maker Eval W/Iterative Adjment Dual Lead Completed 12/10/2017 59179 Pace Maker Eval W/Iterative Adjment Dual Lead Completed 09/16/2017 18399 EKG Tracing & Interpretation Completed 09/08/2017 14983 Treadmill Interp/Report Only Completed 09/08/2017 27810 Stress Test Supervsn W/Out I/R Completed 07/11/2017 45179 Holter Monitor Review (24 hr)dr review & interp only Completed 07/08/2017 27116 ECG Monitor/Recording W/Visual Superimposition Completed Scanning 05/05/2017 24396 EKG Tracing & Interpretation Completed 03/27/2017 84183 EKG, Interpretation Only Completed 03/14/2017 42319 Interrogation Device Eval In Person W/DR Completed Analysis,Single,Dual,Mul 03/12/2017 09718 EEG Recording Awake & Drowsy Completed 03/12/2017 34222 ECHO Transthorasic Realtime 2D W Doppler & Color Flow Completed Hosp 12/02/2016 89642 Pace Maker Eval W/Iterative Adjment Dual Lead Completed 11/20/2016 69995 Inhalation TX For Acute Airway Obstruction Completed W/Nebulizer/Inhaler 11/06/2016 07453 EKG Tracing & Interpretation Completed 10/28/2016 38759 Treadmill Interp/Report Only Completed 10/28/2016 70524 Stress Test Supervsn W/Out I/R Completed 10/27/2016 37920 EKG, Interpretation Only Completed 10/23/2016 61540 ECHO Transthorasic Realtime 2D W Doppler & Color Flow Completed Hosp 06/04/2016 56396 Pace Maker Eval W/Iterative Adjment Dual Lead Completed 05/07/2016 56440 Removal With Replacement Dual Lead System Pulse Completed Generator 05/01/2016 53986 Interrogation Device Eval In Person W/ Completed Analysis,Single,Dual,Mul 04/19/2016 62781 Pace Maker Eval W/Iterative Adjment Dual Lead Completed 02/21/2016 92306 EKG Tracing & Interpretation Completed 02/09/2016 85691 Interrogation Device Eval In Person W/ Completed Analysis,Single,Dual,Mul 11/09/2015 20175 Interrogation Device Eval In Person W/ Completed Analysis,Single,Dual,Mul 08/16/2015 65081 Pace Maker Eval W/Iterative Adjment Dual Lead Completed 03/14/2015 76813 EKG Tracing & Interpretation Completed 03/08/2015 93927 Interrogation Device Eval In Person W/ Completed Analysis,Single,Dual,Mul 12/27/2014 10402 Interrogation Device Eval In Person W/ Completed Analysis,Single,Dual,Mul 08/03/2014 83165 EKG Tracing & Interpretation Completed 06/08/2014 93241 Pace Maker Eval W/Iterative Adjment Dual Lead Completed 11/18/2013 29929 Pace Maker Eval W/Iterative Adjment Dual Lead Completed 09/08/2013 40473134 Mammogram Completed 05/25/2013 15561 Cardiac Event Monitor Completed 04/23/2013 01258 EKG Tracing & Interpretation Completed 04/22/2013 45485 Pace Maker Eval W/Iterative Adjment Dual Lead Completed 11/09/2012 36897 Pace Maker Eval W/Iterative Adjment Dual Lead Completed 11/06/2012 78170 Myocardial Perfusion Imaging Tomographic (Spect) Completed Multiple Studies 11/06/2012 97280 Stress Test Completed 08/28/2012 02364 EKG Tracing & Interpretation Completed 08/26/2012 84794 Pace Maker Eval W/Iterative Adjment Dual Lead Completed Encounters Type Date Location Provider Dx Diagnosis Office Visit 06/10/2018 [facility] Internal Eva Urena, I10 Essential (primary ) 11:20a Medicine - N.P. hypertension [place] R60.0 Localized edema Office Visit 05/29/2018 10:00a [place] [facility] Aamir Ross, G20 [facility] [place] disease I48.2 Chronic atrial fibrillation I10 Essential (primary) hypertension R26.81 Unsteadiness on feet Office Visit 05/09/2018 4:12p [place] [facility] Gustavo Lopes R07.9 Chest pain, [place] Izquierdo unspecified I48.91 Unspecified atrial fibrillation Office Visit 05/09/2018 [facility] Barbi Hohn, R07.9 Chest pain, 11:05a Assocelroy M.D. unspecified Hospitalists I69.398 Other sequelae of cerebral infarction I95.1 Orthostatic hypotension E78.5 Hyperlipidemia, unspecified G20 Parkinson's disease Office Visit 05/08/2018 [facility] Shell, I63.9 Cerebral 11:04a Asselroy morrison M.D. infarction, Hospitalists unspecified I48.91 Unspecified atrial fibrillation R07.9 Chest pain, unspecified G20 Parkinson's disease Office Visit 05/08/2018 2:15p [facility] Young Dunlap R07.9 Chest pain, Of Christin Mittal M.D., unspecified FACC, FASNC Office Visit 05/06/2018 4:00p [facility] Internal Eva Urena, I10 Essential Medicine - N.P. (primary) [place] hypertension R07.89 Other chest pain H91.93 Unspecified hearing loss, bilateral R60.0 Localized edema [facility] I48.2 Chronic atrial 1:00p Cardiology Of [place], FACC, FASNC fibrillation [facility] Office Visit 03/27/2018 [place] Christopher Cody, G20 Parkinson's 10:15a Neurologic M.DGrant disease Services Of [facility] Z86.73 Prsnl hx of TIA (TIA), and cereb infrc w/o resid deficits I48.91 Unspecified atrial fibrillation Office Visit 02/11/2018 11:20a [facility] Internal Douglas Damon, I10 Essential Medicine - M.DGrant (primary) [place] hypertension I48.91 Unspecified atrial fibrillation E78.2 Mixed hyperlipidemia Office Visit 01/01/2018 11:40a [facility] Internal Eva Urena, 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 infarction due Hospitalists to embolism of unsp cerebral artery I10 Essential (primary) hypertension R42 Dizziness and giddiness I48.91 Unspecified atrial fibrillation [facility]2017 [facility] Assoc,elroy Barger M.D. infarction due Hospitalists to embolism of unsp cerebral artery I10 Essential (primary) hypertension R42 Dizziness and giddiness I48.91 Unspecified atrial fibrillation Office Visit 12/25/2017 7:00a [facility] Gastroenterology Dafne Alex, Z87.11 Personal MD history of peptic ulcer disease G45.9 Transient cerebral ischemic attack, unspecified K92.2 Gastrointestinal hemorrhage, unspecified Office Visit 12/25/2017 1:54p [facility] I63.40 Cerebral Assoc,elroy Barger M.D. infarction due Hospitalists to embolism of unsp cerebral artery I10 Essential (primary) hypertension Office Visit 12/25/2017 [facility] Steve Shepherd G45.9 Transient 2:16p Jose Alberto Baker M.D. cerebral ischemic attack, unspecified I48.2 Chronic atrial fibrillation Office Visit 12/24/2017 [facility] Vannessa Trotter R20.2 Paresthesia of 1:53p Assoc,elroy Tamayo, PET CARE WORKER skin Hospitalists R42 Dizziness and giddiness I10 Essential (primary) hypertension I48.91 Unspecified atrial fibrillation Office Visit 12/24/2017 [facility] Steve Shepherd G45.9 Transient 2:13p Jose Alberto Baker M.D. cerebral ischemic attack, unspecified I10 Essential (primary) hypertension I48.2 Chronic atrial fibrillation G20 Parkinson's disease Office Visit 12/22/2017 9:30a [place] [facility] Aamir Ross, G20 [facility] [place] disease I48.91 Unspecified atrial fibrillation I49.5 Sick sinus syndrome Z95.0 Presence of cardiac pacemaker Z86.73 Prsnl hx of TIA (TIA), and cereb infrc w/o resid deficits Office Visit 12/10/2017 11:00a [facility] Internal Douglas Damon, I10 Essential Medicine - M.DGrant (primary) [place] hypertension I48.2 Chronic atrial fibrillation M25.511 Pain in right shoulder I95.1 Orthostatic hypotension Office Visit 10/15/2017 10:00a [facility] Internal Douglas Damon, I10 Essential Medicine - [place] (primary) [place] hypertension R26.81 Unsteadiness on feet I48.2 Chronic atrial fibrillation E78.2 Mixed hyperlipidemia M25.511 Pain in right shoulder Office Visit 09/16/2017 1:45p [facility] Young Germán R07.89 Other chest pain Of Christin Mittal M.D., FACC, FASNC Office Visit 09/12/2017 2:40p [facility] Internal Chase Allen, I10 Essential Medicine - PET CARE WORKER (primary) [place] hypertension R94.5 Abnormal results of liver function studies R07.89 Other chest pain Office Visit 09/08/2017 [facility] Vannessa Trotter R07.9 Chest pain, 8:13a Assoc,elroy Tamayo, MATTHIEU unspecified Hospitalists G20 Parkinson's disease I48.91 Unspecified atrial fibrillation Z86.73 Prsnl hx of TIA (TIA), and cereb infrc w/o resid deficits Office Visit 09/07/2017 [facility] Ty Parks R07.9 Chest pain, 8:13a elroy Mullins II, M.D. unspecified Hospitalists G20 Parkinson's disease I48.91 Unspecified atrial fibrillation Z86.73 Prsnl hx of TIA (TIA), and cereb infrc w/o resid deficits Office Visit 08/27/2017 9:40a [facility] Internal Douglas L98.9 Disorder of the Medicine Koko Damon M.D. skin and [place] subcutaneous tissue, unspecified R26.81 Unsteadiness on feet Office Visit 07/18/2017 [facility] Internal Douglas Z01.818 Encounter for other 1:40p Brigette Damon M.D. preprocedural [address] examination I10 Essential (primary) hypertension I48.2 Chronic atrial fibrillation G20 Parkinson's disease Office Visit 07/15/2017 2:45p [facility] Youngdelphine Dunlap I48.2 Chronic atrial Of Christin Mittal M.D., fibrillation FAC, [facility] H26.9 Unspecified cataract Z01.810 Encounter for preprocedural cardiovascular examination Office Visit 07/15/2017 3:00p [place] [facility] Azalea Banks G20 Parkinson's Services Of Christin Junior M.D. 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 abnormalities of [place] gait and mobility Office Visit 06/18/2017 [facility] Internal Douglas G45.9 Transient cerebral 11:20a Brigette Damon M.D. ischemic attack, [place] unspecified R42 Dizziness and giddiness R29.6 Repeated falls Office Visit 05/21/2017 8:40a [facility] Internal Douglas Damon, I10 Essential Medicine - [place] (primary) [place] hypertension I63.9 Cerebral infarction, unspecified I95.2 Hypotension due to drugs Z23 Encounter for immunization Office Visit 05/05/2017 9:45a [facility] Young Germán I48.0 Paroxysmal atrial Of Christin Mittal M.D., fibrillation FACC, FASNC Office Visit 04/22/2017 2:00p [facility] Internal Douglas I48.0 Paroxysmal atrial Medicine - Tbmitchell Damon, fibrillation Rd MShane I10 Essential (primary) hypertension I63.9 Cerebral infarction, unspecified R07.89 Other chest pain R29.6 Repeated falls Office Visit 03/21/2017 Neurohospitalist Shirley I63.9 Cerebral 4:50p Jose Alberto Friedman M.D. infarction, unspecified I48.91 Unspecified atrial fibrillation Office Visit 03/20/2017 4:23p [facility] Barbi Goff, I63.20 Cereb infrc Assoc,pc [place] due to uns Hospitalists occls or stenos of unsp precerb art I10 Essential (primary) hypertension G20 Parkinson's disease I95.1 Orthostatic hypotension Office Visit 03/19/2017 4:23p [facility] Barbi Goff, I63.20 Cereb infrc Assoc,pc DarrenDGrant due to uns Hospitalists occls or stenos of unsp precerb art I10 Essential (primary) hypertension G20 Parkinson's disease I95.1 Orthostatic hypotension Office Visit 03/17/2017 4:22p [facility] Barbi Dhillonhn, I63.20 Cereb infrc Asselroy morrison M.D. due to unsp Hospitalists occls or stenos of unsp precerb art I10 Essential (primary) hypertension G20 Parkinson's disease I95.1 Orthostatic hypotension Office Visit 03/16/2017 [facility] Barbi Shell, I63.40 Cerebral 3:43p Asselroy morrison M.D. infarction due Hospitalists to embolism of unsp cerebral artery I48.0 Paroxysmal atrial fibrillation I95.1 Orthostatic hypotension Office Visit 03/15/2017 [facility] Barbi Shell, I63.40 Cerebral 3:43p elroy Mullins M.D. infarction due Hospitalists to embolism of unsp cerebral artery I48.0 Paroxysmal atrial fibrillation I95.1 Orthostatic hypotension Office Visit 03/14/2017 9:06a [facility] [place] SGrant R55 Syncope and Of Geosciences Associate Professor Sequeira, DO FAC collapse I63.9 Cerebral infarction, unspecified Z95.0 Presence of cardiac pacemaker I49.5 Sick sinus syndrome Office Visit 03/14/2017 [facility] Barbi Shell, I63.40 Cerebral 3:42p elroy Mullins M.D. infarction due Hospitalists to embolism of unsp cerebral artery I48.0 Paroxysmal atrial fibrillation I95.1 Orthostatic hypotension I47.2 Ventricular tachycardia Office Visit 03/13/2017 [facility] Steve Shepherd I63.40 Cerebral 2:31p Jose Alberto Baker M.D. infarction due to embolism of unsp cerebral artery I10 Essential (primary) hypertension I48.91 Unspecified atrial fibrillation Office Visit 03/13/2017 [facility] Barbi Shell, I63.40 Cerebral 3:42p elroy Mullins M.D. infarction due Hospitalists to embolism of unsp cerebral artery I48.0 Paroxysmal atrial fibrillation I95.0 Idiopathic hypotension G20 Parkinson's disease Office Visit 03/12/2017 3:41p [facility] Singh I63.40 Cerebral Assoc,elroy Arvizu MD infarction due Hospitalists to embolism of unsp cerebral artery I48.0 Paroxysmal atrial fibrillation G20 Parkinson's disease I95.1 Orthostatic hypotension Office Visit 03/12/2017 [facility] Steve Shepherd I63.40 Cerebral 2:31p Clinic [place] Baker infarction due to embolism of unsp cerebral artery I10 Essential (primary) hypertension I48.91 Unspecified atrial fibrillation R55 Syncope and collapse Office Visit 02/20/2017 11:45a [place] [facility] Azalea Banks G20 Parkinson's Services Of Christin Junior M.D. disease I95.1 Orthostatic hypotension Office Visit 02/03/2017 1:00p [place] I48.0 Paroxysmal atrial Cardiology Of [place] Mittal, fibrillation [facility] FAC, FASNC Office Visit 2017 9:20a [facility] Internal [place] M51.16 Intervertebral disc Medicine - [place], disorders w Christine Jiame radiculopathy, lumbar region I48.0 Paroxysmal atrial fibrillation Office Visit 12/25/2016 10:40a [facility] Internal Douglas Damon, K29.61 Other gastritis Medicine - M.DGrant with bleeding [place] M51.16 Intervertebral disc disorders w radiculopathy, lumbar region I48.0 Paroxysmal atrial fibrillation I12.9 Hypertensive chronic kidney disease w stg 1-4/unsp chr kdny N18.9 Chronic kidney disease, unspecified Office Visit 11/22/2016 10:00a [facility] Internal Medicine Douglas Damon M.D. R05 Cough - [address] Office Visit 11/20/2016 8:20a [facility] Internal Medicine Douglas Damon M.D. R05 Cough - [place] D64.9 Anemia, unspecified I10 Essential (primary) hypertension Office Visit 11/13/2016 11:15a [place] [facility] Azalea Banks I95.1 Orthostatic Services Of Christin Junior M.D. hypotension G20 Parkinson's disease Office Visit 11/13/2016 9:20a [facility] Internal Douglas Damon, I10 Essential Medicine - M.DGrant (primary) [place] hypertension I95.1 Orthostatic hypotension I48.0 Paroxysmal atrial fibrillation K25.0 Acute gastric ulcer with hemorrhage J20.9 Acute bronchitis, unspecified Office Visit 11/06/2016 10:15a [place] [facility] Young Dunlap I48.0 Paroxysmal atrial [place] Mittal, fibrillation [facility], FASOR I49.5 Sick sinus syndrome Z95.0 Presence of cardiac pacemaker I47.2 Ventricular tachycardia R94.31 Abnormal electrocardiogram [ECG] [EKG] Office 11/01/2016 [facility] K92.2 Gastrointestinal Visit 1:21p Assoc,pc Roni, PET CARE WORKER hemorrhage, Hospitalists unspecified R55 Syncope and collapse D64.9 Anemia, unspecified G20 Parkinson's disease Office 10/31/2016 [facility] K92.2 Gastrointestinal Visit 1:20p Assoc,pc Roni, PET CARE WORKER hemorrhage, Hospitalists unspecified R55 Syncope and collapse D64.9 Anemia, unspecified G20 Parkinson's disease Office Visit 10/30/2016 [facility] Nils I95.1 Orthostatic 2:53p Clinic MD Sherine hypotension G20 Parkinson's disease Office 10/30/2016 [facility] K92.2 Gastrointestinal Visit 1:19p Assocelroy, PET CARE WORKER hemorrhage, Hospitalists unspecified R55 Syncope and collapse D64.9 Anemia, unspecified G20 Parkinson's disease Office Visit 10/29/2016 [facility] Nils I95.1 Orthostatic 2:52p Clinic MD Sherine hypotension G20 Parkinson's disease Office Visit 10/29/2016 [facility] K92.2 Gastrointestinal 1:19p Assoc,pc Cynthia, PET CARE WORKER hemorrhage, Hospitalists unspecified D64.9 Anemia, unspecified G20 Parkinson's disease R55 Syncope and collapse Office Visit 10/28/2016 [facility] K92.2 Gastrointestinal 10:07a Assoc,pc Cynthia, PET CARE WORKER hemorrhage, Hospitalists unspecified D64.9 Anemia, unspecified G20 Parkinson's disease R55 Syncope and collapse Office Visit 10/27/2016 1:52p [place] [facility] Gustavo Lopes I47.2 Ventricular Nell Izquierdo. tachycardia R55 Syncope and collapse Office Visit 10/27/2016 [facility] K92.2 Gastrointestinal 10:06a Assoc,pc Marie, PET CARE WORKER hemorrhage, Hospitalists unspecified D64.9 Anemia, unspecified G20 Parkinson's disease R55 Syncope and collapse Office Visit 10/26/2016 1:53p [place] [facility] Gustavo Lopes R55 Syncope and [place] Izquierdo collapse I48.0 Paroxysmal atrial fibrillation I47.2 Ventricular tachycardia Office Visit 10/26/2016 [facility] K92.2 Gastrointestinal 10:06a Assoc,pc Marie, PET CARE WORKER hemorrhage, Hospitalists unspecified D64.9 Anemia, unspecified G20 Parkinson's disease R55 Syncope and collapse Office Visit 10/25/2016 [facility] K92.2 Gastrointestinal 10:05a Assoc,pc Marie, PET CARE WORKER hemorrhage, Hospitalists unspecified D64.9 Anemia, unspecified G20 Parkinson's disease R55 Syncope and collapse Office Visit 10/24/2016 [facility] K92.2 Gastrointestinal 10:05a Assoc,pc Marie, PET CARE WORKER hemorrhage, Hospitalists unspecified D64.9 Anemia, unspecified G20 Parkinson's disease Office Visit 10/23/2016 [facility] Dafne Lord, K92.2 Gastrointestinal 10:04a Assoc,pc N.P. hemorrhage, Hospitalists unspecified D64.9 Anemia, unspecified G20 Parkinson's disease Office Visit 09/23/2016 3:00p [facility] Internal Chase Alejandro, I10 Essential ( primary) Medicine - PET CARE WORKER hypertension [place] S09.90xA Unspecified injury of head, initial encounter Office Visit 08/22/2016 1:45p [place] Venice Banks G2Anders Parkinson's Services Of Christin Junior M.D. disease G25.81 Restless legs syndrome G43.009 Migraine w/o aura, not intractable, w/o status migrainosus M25.532 Pain in left wrist R29.6 Repeated falls Office Visit 08/07/2016 9:40a [facility] Internal Rick Mcadams4.5 Low back Brigette Sutherland M.D. 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 disease G25.81 Restless legs syndrome M54.5 Low back pain M79.661 Pain in right lower leg S80.811S Abrasion, right lower leg, sequela Office Visit 05/01/2016 11:00a [facility] Joey Longoria I49.5 Sick sinus Of Christin Bull M.D. syndrome Z95.0 Presence of cardiac pacemaker Office Visit 04/09/2016 10:15a Nella Banks G20 [facility]'s [facility] Of Christin Junior M.D. disease G25.81 Restless legs syndrome R40.0 Somnolence Office Visit 02/21/2016 9:15a [facility] Young Dunlap I48.0 Paroxysmal atrial Of Christin Mittal M.D., fibrillation FACC, FASNC Office Visit 10/19/2015 10:45a Nella Banks G2Anders Parkinson's disease Services Of Christin Junior M.D. G25.81 Restless legs syndrome Office Visit 06/15/2015 10:15a Nella Banks G20 [facility]'s [facility] Of Christin Junior M.D. disease G25.81 Restless legs syndrome R42 Dizziness and giddiness Office Visit 03/14/2015 1:45p [facility] Youngdelphine Dunlap 427.31 Atrial Of Christin Mittal M.D., Fibrillation FACC, FASNC Office Visit 02/09/2015 9:45a Nella Banks 332.0 Paralysis Agitans Services Of Christin Junior M.D. 333.94 Restless Leg Syndrome 783.21 Loss Of Weight Office Visit 10/13/2014 10:15a Nella Banks 332.0 Paralysis Services Of Christin Junior M.D. Agitans 333.94 Restless Leg Syndrome Office Visit 08/03/2014 1:45p [facility] Youngdelphine Dunlap 427.31 Atrial Addison Mittal, Fibrillation FACC, FASNC Office Visit 06/28/2014 9:45a Nella Banks 332.0 Paralysis Agitans [facility] Of Christin Junior M.D. 333.94 Restless Leg Syndrome Office Visit 08/26/2013 1:15p Nella Banks 332.0 Paralysis Services Of Christin Junior M.D. Agitans 333.94 Restless Leg Syndrome 729.1 Myalgia & Myositis Unspec Office Visit 07/12/2013 11:45a [facility] Young Dunlap 785.1 Palpitations Of Christin Mittal M.D., [facility], [facility] Office Visit 07/09/2013 9:30a [facility] Azalea MGrant 332.0 Paralysis Agitans Services Of Christin Junior M.D. Office Visit 04/23/2013 9:45a [facility] Young Dunlap 427.81 Sinoatrial Node Of Christin Mittal M.D., Dysfunction [facility], [facility] Office Visit 03/12/2013 11:00a [facility] Azalea MGrant 332.0 Paralysis Agitans Services Of Christin Junior M.D. Office Visit 12/08/2012 11:30a [facility] Azalea Banks 332.0 Paralysis Agitans Services Of Christin Junior M.D. Office Visit 11/16/2012 8:45a [facility] Young Dunlap 414.9 Ischemic Heart Of Christin Mittal M.D., Disease Chronic FAC, [facility] Unspec Office Visit 10/12/2012 11:15a [facility] Youngdelphine Dunlap 427.31 Atrial Of Christin Mittal M.D., Fibrillation [facility], [facility] Office Visit 08/28/2012 8:15a [facility] Young Dunlap 414.9 Ischemic Heart Of Christin Mittal M.D., Disease Chronic [facility], [facility] Unspec 427.31 Atrial Fibrillation Office Visit 05/29/2012 [facility] Azalea Banks 332.0 Paralysis Agitans 3:00p Services Of Christin Junior M.D. 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 at [facility] [place] [facility]07/24/2018 - Eva Urena N.P.7.81 Postconcussional syndromeNew Therapy:Physical TherapyComments:You have vertigo related to hitting your head. I have referred you for physical therapy to help you with balance and gait.
[2018-07-31 13:00] VITALS: BP 151/104
--- NOTE | 2018-07-31 13:43 | UC ---
Back Pain HPI - HPI Summary HPI Summary: ONSET OF BACK PAIN SEVERAL DAYS AGO. 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 USES A WALKER TO HELP WITH MOBILITY BUT STILL FALLS FREQUENTLY. FELL 4 DAYS AGO AND THEN AGAIN THE NEXT DAY STRIKING HER BACK AGAINST THE WALL AND LANDING ON HER BUTTOCKS. SHE HAS HAD INCREASING PAIN IN HER LOW BACK SINCE THEN. NO NUMBNESS/TINGLING OF HER LOWER EXTREMITIES MORE THAN BASELINE. NO LOSS OF BOWEL OR BLADDER CONTROL. NO SADDLE ANESTHESIA. - History of Current Complaint Chief Complaint: UCBackPain Stated Complaint: BACK PAIN Time Seen by Provider: 07/31/18 13:35 Hx Obtained From: Patient Onset/Duration: Gradual Onset, Lasting Days, Still Present Timing: Constant Severity Initially: Moderate Severity Currently: Moderate Pain Intensity: 9 Pain Scale Used: 0-10 Numeric Back Pain: Is Discrete @ - MID/LOW BACK Character: Sharp Aggravating Factor(s): Movement Alleviating Factor(s): Nothing Associated Signs And Symptoms: Negative: Weakness, Numbness, Tingling, Bladder Incontinence, Bowel Incontinence - Allergies/Home Medications Allergies/Adverse Reactions: Allergies Allergy/AdvReac Type Severity Reaction Status Date / Time dofetilide [From Tikosyn] Allergy Unknown Verified 07/31/18 13:00 Reaction Details Penicillins Allergy Hives Verified 07/31/18 13:00 crystal light Allergy Airway Uncoded 07/31/18 13:00 Obstruction PMH/Surg Hx/FS Hx/Imm Hx Cardiovascular History: Hypertension GI/ History: Ulcer Neurological History: Other - PARKINSONS - Surgical History Surgical History: Yes Surgery Procedure, Year, and Place: skin, hysterectomy- one ovary; appe; pacemaker; heart scraped after infection - Family History Known Family History: Positive: Cardiac Disease, Hypertension, Other - [place] - Social History Alcohol Use: Rare Substance Use Type: None Smoking Status (MU): Never Smoked Tobacco - Immunization History Most Recent Influenza Vaccination: fall 2015 Most Recent Tetanus Shot: unknown Most Recent Pneumonia Vaccination: 2016 Review of Systems All Other Systems Reviewed And Are Negative: Yes Constitutional: Positive: Negative Respiratory: Positive: Negative Cardiovascular: Positive: Negative Gastrointestinal: Positive: Negative Musculoskeletal: Positive: Arthralgia, Decreased ROM, Myalgia Physical Exam Triage Information Reviewed: Yes Appearance: Well-Appearing, Well-Nourished, Pain Distress - MILD Vital Signs: Initial Vital Signs Temp 99.5 F 07/31/18 12:57 Pulse 104 07/31/18 12:57 Resp 18 07/31/18 12:57 BP 151/104 07/31/18 12:57 Pulse Ox 100 07/31/18 12:57 Vital Signs Reviewed: Yes Eyes: Positive: Conjunctiva Clear ENT: Positive: Hearing grossly normal Neck: Positive: Supple Respiratory: Positive: No respiratory distress, No accessory muscle use Cardiovascular: Positive: Pulses Normal Abdomen Description: Positive: Soft Musculoskeletal: Positive: No Edema, ROM Limited @ - BACK, Other: - TTP DIFFUSELY MID/LOW BACK AND RIGHT LATERAL RIB CAGE Psychological: Positive: Age Appropriate Behavior Skin: Negative: Rashes Diagnostics - Radiology T-SPINE XRAYS Radiology Interpretation Completed By: Radiologist Summary of Radiographic Findings: COMPRESSION FRACTURE OF THE T12 VERTEBRAL BODY , NEW FROM THE PREVIOUS STUDY. LUMBARSACRAL XRAYS Radiology Interpretation Completed By: Radiologist Summary of Radiographic Findings: 1. OSTEOPENIA. 2. SCOLIOSIS. 3. DEGENERATIVE DISC DISEASE AND OSTEOARTHRITIS. RIGHT RIB XRAYS Radiology Interpretation Completed By: Radiologist Summary of Radiographic Findings: OSTEOPENIC BONES Back Pain Course/Dx - Differential Dx/Diagnosis Provider Diagnosis: T12 compression fracture, Low back strain Discharge - Sign-Out/Discharge Documenting (check all that apply): Patient Departure All imaging exams completed and their final reports reviewed: Yes - Discharge Plan Condition: Stable Disposition: HOME Prescriptions: HYDROcodone/ACETAMIN 5-325 MG* [[place] 5-325 TAB*] 1 tab PO BID PRN #20 tab MDD 2 PRN Reason: Pain Patient Education Materials: Vertebral Compression Fracture (ED) Referrals: [facility] [Provider Group] - 3 Days Douglas Damon MD [Primary Care Provider] - If Needed Additional Instructions: X-RAYS TODAY SHOW A COMPRESSION FRACTURE OF YOUR T12 VERTEBRAE. CALL NEUROSURGERY TODAY TO SCHEDULE AN APPOINTMENT FOR NEXT WEEK. ([phone]). HYDROCODONE NEEDED FOR DISCOMFORT. BE AWARE THAT THIS MEDICATION MAY INCREASE HER RISK OF FALLS SO USE WITH CAUTION. GO TO THE ED WITHOUT FAIL IF YOU DEVELOP NUMBNESS/TINGLING IN YOUR LEGS, NUMBNESS IN THE GENITAL REGION, LOSS OF BOWEL/BLADDER CONTROL, INTOLERABLE PAIN OR ANY OTHER CONCERNING SYMPTOMS. - Billing Disposition and Condition Condition: STABLE Disposition: Home
== END 2018-07-31 15:20 | disposition home or self-care (01) ==
LOC: UCEAST 12:42
DX: S22.089A Unspecified fracture of T11-T12 vertebra, initial encounter for closed fracture (principal); I10 Essential (primary) hypertension; G20 Parkinson's disease; S39.012A Strain of muscle, fascia and tendon of lower back, initial encounter; Z88.0 Allergy status to penicillin; Z88.8 Allergy status to other drugs, medicaments and biological substances; Z91.09 Other allergy status, other than to drugs and biological substances; W19.XXXA Unspecified fall, initial encounter; Y92.9 Unspecified place or not applicable
CPT/HCPCS: 72070; 72110; 81003; 99212; G0463

== ENCOUNTER 2018-11-06 17:42 | Emergency (ER) | payer MEDICARE ==
--- NOTE | 2018-11-06 18:29 | ED ---
Neurological HPI - HPI Summary HPI Summary: This patient is an 78 year old female brought in by EMS presenting to [facility] with a chief complaint of confusion. The patient reports amnesia for the first half of the day. She does not remember anything that occurred after filling her dogs water bowl immediately after she woke up. She also reports weakness in her legs, which she states is likely due to her Hx of Parkinsons disease. She has not taken her pills this morning and this is how she realized she had lost time. The patient has a Hx of AFIB and a pacemaker. The patient states she feels tired and confused now due to the amnesia. The patient also states she tripped and fell on her laundry basket 3 days ago. She denies hitting her head. - History of Current Complaint Chief Complaint: EDAltMentalStatus Stated Complaint: "INCREASED WEAKNESS/CONFUSION PER EMS" Time Seen by Provider: 11/06/18 17:58 Hx Obtained From: Patient Onset/Duration: Started hours ago Onset Severity: Mild Current Severity: Mild Pain Intensity: 0 Pain Scale Used: 0-10 Numeric Character: Weak, Confusion Associated Signs and Symptoms: Positive: Confusion, Weakness - Additional Pertinent History Primary Care Physician: [id number] - Allergy/Home Medications Allergies/Adverse Reactions: Allergies Allergy/AdvReac Type Severity Reaction Status Date / Time dofetilide [From Tikosyn] Allergy Unknown Verified 07/31/18 13:00 Reaction Details Penicillins Allergy Hives Verified 07/31/18 13:00 crystal light Allergy Airway Uncoded 07/31/18 13:00 Obstruction PMH/Surg Hx/FS Hx/Imm Hx Endocrine/Hematology History: Reports: Hx Blood Transfusions - current visit, Hx Anemia - current Denies: Hx Diabetes, Hx Thyroid Disease Cardiovascular History: Reports: Hx Hypertension, Hx Pacemaker/ICD - RIGHT SIDE , Hx Syncope, Other Cardiovascular Problems/Disorders - RECENT STOKE 3 WEEKS AGO Denies: Hx Angina, Hx Coronary Artery Disease, Hx Hypercholesterolemia, Hx Myocardial Infarction, Hx Peripheral Vascular Disease Respiratory History: Denies: Hx Asthma, Hx Chronic Obstructive Pulmonary Disease (COPD), Other Respiratory Problems/Disorders GI History: Reports: Hx Gastroesophageal Reflux Disease - HISTORY OF, Hx Ulcer - OCTOBER 2016 Musculoskeletal History: Reports: Hx Arthritis, Hx Rheumatoid Arthritis, Hx Back Problems Denies: Hx Osteoporosis Sensory History: Reports: Hx Contacts or Glasses Denies: Hx Hearing Aid Opthamlomology History: Reports: Hx Contacts or Glasses Neurological History: Reports: Hx Migraine, Hx Transient Ischemic Attacks (TIA) , Other Neuro Impairments/Disorders - HISTORY OF PARKINSONS Denies: Hx Headaches, Hx Seizures - Cancer History Cancer Type, 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 - Surgical History Surgery Procedure, Year, and Place: skin, hysterectomy- one ovary; appe; pacemaker; heart scraped after infection Hx Anesthesia Reactions: No - Immunization History Date of Tetanus Vaccine: UTD Date of Influenza Vaccine: 2015 Infectious Disease History: No Infectious Disease History: Denies: Hx Clostridium Difficile, Hx Hepatitis, Hx Human Immunodeficiency Virus (HIV), Hx of Known/Suspected MRSA, Hx Shingles, Hx Tuberculosis, Hx Known/ Suspected VRE, Hx Known/Suspected VRSA, History Other Infectious Disease, Traveled Outside the [place] in Last 30 Days - Family History Known Family History: Positive: Cardiac Disease, Hypertension, Other - [place] - Social History Alcohol Use: Rare Hx Substance Use: No Substance Use Type: Reports: None Hx Tobacco Use: No Smoking Status (MU): Never Smoked Tobacco Review of Systems Negative: Fever Neurological: Other - Confusion Positive: Weakness All Other Systems Reviewed And Are Negative: Yes Physical Exam - Summary Physical Exam Summary: Appearance: The patient is well-nourished in no acute distress and in no acute pain. Skin: The skin is warm and dry and skin color reflects adequate perfusion. HEENT: The head is normocephalic and atraumatic. The pupils are equal and reactive. The conjunctivae are clear and without drainage. Nares are patent and without drainage. Mouth reveals moist mucous membranes and the throat is without erythema and exudate. The external ears are intact. The ear canals are patent and without drainage. The tympanic membranes are intact. Neck: The neck is supple with full range of motion and non-tender. There are no carotid bruits. There is no neck vein distension. Respiratory: Chest is non-tender. Lungs are clear to auscultation and breath sounds are symmetrical and equal. Cardiovascular: Heart is Irregularly irregular. There is no murmur or rub auscultated. There is no peripheral edema and pulses are symmetrical and equal. Abdomen: The abdomen is soft and non-tender. There are normal bowel sounds heard in all four quadrants and there is no organomegaly palpated. Musculoskeletal: There is no back tenderness noted. Extremities are non-tender with full range of motion. There is good capillary refill. There is no peripheral edema or calf tenderness elicited. Tender over lower sternal border. Neurological: Patient is alert and oriented to person, place and time. The patient has symmetrical motor strength in all four extremities. Cranial nerves are grossly intact. Deep tendon reflexes are symmetrical and equal in all four extremities. Psychiatric: The patient has an appropriate affect and does not exhibit any anxiety or depression. GCS: 15 Triage Information Reviewed: Yes Vital Signs On Initial Exam: Initial Vitals Temp Pulse Resp BP Pulse Ox 97.9 F 84 16 142/90 97 11/06/18 17:44 11/06/18 17:44 11/06/18 17:44 11/06/18 17:44 11/06/18 17:44 Vital Signs Reviewed: Yes Diagnostics - Vital Signs Vital Signs Temp Pulse Resp BP Pulse Ox 11/06/18 18:00 100 11 96 11/06/18 17:58 97 20 151/107 87 11/06/18 17:44 97.9 F 84 16 142/90 97 - Laboratory Result Diagrams: 11/06/18 19:11 11/06/18 19:11 Lab Statement: Any lab studies that have been ordered have been reviewed, and results considered in the medical decision making process. - CT Brain CT Interpretation Completed By: Radiologist Summary of CT Findings: No acute intracranial pathology. ED Provider has reviewed this report. - Ultrasound No standard instances Ultrasound Interpretation Completed By: ED Physician Summary of Ultrasound Findings: Gallbladder: Cholelithiasis, Cholesystitis. Pending official radiologist report. - EKG 1849 Cardiac Rate: NL EKG Rhythm: Atrial Fibrillation - [address] Segment: Normal EKG Comparison: No Significant Change - 05/09/18 Summary of EKG Findings: Atrial Fibrillation with controlled ventricular response. NIH Scale - NIH Scale Level of Consciousness: Alert/Keenly Responsive Ask Patient the Month and His/Her Age: Both Correct Ask Pt to Open/Close Eyes and Skiver Hand/Release Non-Paretic Hand: Both Correctly Best Gaze (Only Horizontal Eye Movement): Normal Visual Field Testing: No Visual Loss Facial Paresis-Pt to Smile & Close Eyes or Grimace Symmetry: Normal/Symmetrical Motor Function - Right Arm: No Drift-Holds 10 Seconds Motor Function - Left Arm: No Drift-Holds 10 Seconds Motor Function - Right Leg: No Drift-Holds 10 Seconds Motor Function - Left Leg: No Drift-Holds 10 Seconds Limb Ataxia-Must be out of Proportion to Weakness Present: Absent Sensory (Use Pinprick to Test Arms/Legs/Trunk/Face): Normal Best Language (Describe Picture, Name Items): No Aphasia Dysarthria (Read Several Words): Normal Extinction and Inattention: No Abnormality Total Score: 0 Course/Dx - Course Course Of Treatment: Ms. Phelan presented with some confusion about the events of the day. She fell a few days ago and blames some epigastric pain on that. She is concerned because she can't remember anything that happened today. She was tender in the epigastrium and anterior xiphoid area and rib border. There was no focal neurological finding. She was afebrile and nontoxic in appearance with stable vitals aside from some mild tachycardia. She was found to have a leukocytosis of 16. Her bilirubin was 4, her AST 300 and her alkaline phosphatase 140. A gallbladder ultrasound was obtained and revealed a likely cholecystitis with mild edema of the gallbladder wall and gallstones present. I spoke with the surgeon, Dr. Fowler who felt that she should be admitted and if her bilirubin is going up she would need an MRCP and possibly an ERCP. I spoke with the administration clerk, Dr. Stanton who agreed with that. I spoke with the hospitalist who was not comfortable admitting the patient here since we don't have the capacity to do ERCP this weekend. She will need to be transferred and currently we have activated the transfer for protocol for [facility]. - Diagnoses Provider Diagnoses: Cholelithiasis, Cholecystitis - Critical Care Time Critical Care Time: 30-74 min Discharge - Sign-Out/Discharge Documenting (check all that apply): Patient Departure Patient Received Moderate/Deep Sedation with Procedure: No - Discharge Plan Condition: Stable Disposition: TRANS HIGHER LVL OF CARE FAC Prescriptions: ALPRAZolam TAB* [Xanax TAB*] 0.25 mg PO Q6H PRN #20 tab MDD 4 PRN Reason: Anxiety Referrals: Douglas Damon MD [Primary Care Provider] - - Billing Disposition and Condition Condition: STABLE Disposition: Trans Higher Lvl of Care Fac - Attestation Statements Document Initiated by Scribe: Yes Documenting Scribe: Jayme Downing Provider For Whom Scribe is Documenting (Include Credential): Aniceto Espinosa MD Scribe Attestation: I, Jayme Downing, scribed for Aniceto Espinosa MD on 11/06/18 at 2241. Scribe Documentation Reviewed: Yes Provider Attestation: The documentation as recorded by the scribe, Jayme Downing accurately reflects the service I personally performed and the decisions made by me, Aniceto Espinosa MD Status of Scribe Document: Viewed
[2018-11-06 19:30] LABS: ABS Basophils 0.1 10^3/ul (0-0.2); ABS Eosinophils 0 10^3/ul (0-0.6); ABS Lymphocytes 0.4 10^3/ul (1.0-4.8); ABS Monocytes 0.4 10^3/ul (0-0.8); ABS Neutrophils 15.6 10^3/ul (1.5-7.7); ABS Nucleated RBC 0 10^3/ul; Eosinophil % 0 %; Hematocrit 39 % (33-41); Lymphocyte % 2.2 %; Mean Corpuscular HGB Conc 33 g/dL (31-36); Mean Corpuscular Hemoglobin 31 pg (27-31); Mean Corpuscular Volume 93 fL (80-97); Mean Platelet Volume 8.6 fL (7.4-10.4); Nucleated Red Blood Cells % 0; Platelet Count 231 10^3/uL (150-450); Red Blood Count 4.21 10^6 /uL (3.70-4.87); Red Cell Distribution Width 14 % (10.5-15); White Blood Count 16.4 10^3/uL (3.5-10.8)
[2018-11-06 19:38] LABS: Urine Appearance Cloudy; Urine Bacteria Absent (Absent); Urine Bilirubin Negative (Negative); Urine Blood 1+ (Negative); Urine Color Amber; Urine Glucose Negative (Negative); Urine Ketones Trace (Negative); Urine Nitrite Negative (Negative); Urine Protein 1+(30 mg/dL) (Negative); Urine Red Blood Cell 1+(3-5/hpf) (Absent); Urine Specific Gravity 1.021 (1.010-1.030); Urine Squamous Epithelial Cell Present (Absent); Urine Urobilinogen Positive (Negative); Urine White Blood Cell 2+(11-20/hpf) (Absent)
[2018-11-06 19:40] LABS: INR 1.1 (0.77-1.02)
[2018-11-06 19:47] LABS: Albumin 4.4 g/dL (3.2-5.2); Albumin/Globulin Ratio 1.5 (1-3); BUN/Creatinine Ratio 30.1 (8-20); Calcium 9.6 mg/dL (8.6-10.3); EGFR African American 50.8 (>60); Potassium 4.3 mmol/L (3.5-5.0); Total Bilirubin 4.1 mg/dL (0.2-1.0); Total Protein 7.4 g/dL (6.4-8.9); Troponin I 0.01 ng/mL (<0.04)
[2018-11-06] MEDS ORDERED: Ketorolac INJ* 30 MG/ML 1 ML VIAL IV PUSH ONE (20:37)
[2018-11-06] MEDS ORDERED: Ciprofloxacin 400MG IVPREMIX(* 400 MG/200 ML BAG IVPB ONE (21:55)
[2018-11-06] MEDS ORDERED: metroNIDAZOLE IV 500 MG/100ML* 500 MG/100 ML BAG IVPB ONE (21:56)
[2018-11-06] MEDS ORDERED: NS 0.9% 1000 ML** 1,000 ML IV ONE (22:13)
[2018-11-07] MEDS ORDERED: Morphine 4 MG/ML VIAL (1 ml) 4 MG/ML VIAL IV ONE (00:04)
[2018-11-07 01:47] VITALS: BP 119/59
== END 2018-11-07 01:45 | disposition short-term general hospital (02) ==
LOC: ED 17:42
DX: K80.10 Calculus of gallbladder with chronic cholecystitis without obstruction (principal); R41.0 Disorientation, unspecified; R53.1 Weakness; I48.91 Unspecified atrial fibrillation; Z95.810 Presence of automatic (implantable) cardiac defibrillator; Z88.0 Allergy status to penicillin
CPT/HCPCS: 36415; 70450; 76705; 80053; 81003; 81015; 83605; 84484; 85025; 85610; 87040; 87077; 87086; 87186; 93005; 96365; 96375; 99284; J0744; J1885; J2270; J3490

== ENCOUNTER 2018-11-28 17:42 | Emergency (ER) | payer MEDICARE ==
--- OUTSIDE RECORDS SUMMARY | 2018-11-28 18:23 | XMS REPORT | Continuity of Care Document ---
:1940 External Reference #:[id number] Author Name Sera Cali Care Team Providers Name Role Phone Yisel Scales MD Primary Care Physician Unavailable Payers Date Identification Numbers Payment Provider Subscriber Effective: 2002 Policy Number: [id number] Medicare Liudmila Phelan PayID: [id number] [address] [place] [address] Policy Number: [id number] [facility] Liudmila Phelan PayID: [id number] [address] [place] [address] Advance Directives Type Date Description Status Comment [facility] Current and Verified Problems Date Description Provider Status Onset: 02/21/2016 Paroxysmal atrial fibrillation Young Mittal M.D., Active [facility] Onset: 02/09/2015 Parkinson's disease Azalea Junior [...] Chronic atrial fibrillation Young Mittal M.D., Active [facility] Onset: 08/27/2017 Disorder of skin and/or Douglas Damon M.D. Active subcutaneous tissue Onset: 08/27/2017 Abnormal gait Douglas Damon M.D. Active Onset: 09/16/2017 Chest pain Young Mittal M.D., Active [facility] Onset: 10/15/2017 Mixed hyperlipidemia Douglas Damon M.D. [...] 08/03/2014 Atrial fibrillation Young Mittal M.D., Inactive [facility] Inactive: 06/16/2017 Onset: 06/15/2015 Dizziness Azalea Junior M.D. Inactive Inactive: 06/16/2017 Onset: 11/20/2016 Cough Douglas Damon M.D. Inactive Inactive: 06/16/2017 Family History Date Family Member(s) Observation Comments Father Heart Disease Mother Heart Disease Siblings 1 from Lung cancer Social History Type Date Description Comments Sex Unknown Marital Status Lives With Alone lives downstairs from a family in her house Occupation Retired Tobacco Use Start: Unknown Never Smoked Cigarettes Smoking Status Reviewed: 11/17/18 Never Smoked Cigarettes ETOH Use Denies alcohol use Tobacco Use Start: Unknown Patient has never smoked Recreational Drug Use Denies Drug Use Exercise Type/Frequency Exercises sporadically ocassionally PT to start PT Allergies, Adverse Reactions, Alerts Date Description Reaction Status Severity Comments 12/08/2012 Penicillin Active Rash 07/17/2016 Zocor Active 10/26/2016 Tikosyn Active Severe NSVT Medications Medication Date Status Form Strength Qnty SIG Indications Ordering Provider Lisinopril 06/10/ Active Tablets 20mg 30tabs 1 by Yue0 Eva Philippe mouth Varn, every day N.P. Pradaxa 01/01/ Active Capsules 75mg 60caps 1 by Douglas [facility] mouth Pachikara twice a , M.D. day Acetaminophen ER 09/08/ Active Tablets ER 650mg 1 tab by Unknown 2018 mouth q4 hours as needed pain Fludrocortisone 04/08/ Active Tablets 0.1mg 30tabs take one Yisel Acetate 2017 tablet by MD Yordy mouth once daily Metoprolol 11/20/ Active Tablets 50mg 180tab take one I10 Douglas Tartrate 2017 s tablet by Nelson sharp MShane twice a day Walker 09/09/ Active Misc 1units 4 wheels, Carlos 2017 brakes Divehi, and [employer] seat--for daily use Roller Walker 06/11/ Active Misc use daily G20 Azalea MGrant 2015 as selwyn Junior M.D. to prevent falls R29.6 Carbidopa-Levodopa 01/03/2014 Active Tablets 25-100mg 195tabs take 2 Wicho tabs 8am Varela, 1.5 tabs N.P. noon 1 tab 4pm 2 tabs 8pm Omeprazole Active Capsules DR 40mg 180caps 1 by Douglas mouth Pachikara, twice a M.D. day Hydrocodone Active Tablets 5-325mg 30tabs 1 by Yisel Bitartrate/Acetamin mouth MD Yordy ophen every 12 hours as needed Amlodipine Besylate Active Tablets 5mg 90tabs take one Yisel tablet by MD Yordy mouth once daily Alprazolam Active Tablets 0.25mg Unknown Lisinopril 05/06/2018 Hx Tablets 10mg 30tabs 1 by Greta Velasquez - mouth 1 Varn, N.P. 06/10/2018 every day 0 Anselmo 12/27/2017 Hx Tablets 5-325mg 1 tab tid Unknown - prn 03/26/2018 Amlodipine Besylate 09/23/2017 Hx Tablets 5mg 90tabs 1 by Marion - mouth Nelson, 12/29/2017 every day M.D. Amlodipine Besylate 09/18/2017 Hx Tablets 2.5mg 90tabs 1 by Matthew Lantigua, 09/23/2017 every day [facility] Klor-Con M10 07/29/2017 Hx Tablets ER 10Meq 14tabs 1 by Marion - mouth Nelson, 09/12/2017 every day M.D. Magnesium-Oxide 07/22/2017 Hx Tablets 400(241.3 90tabs 1 by Matthew awad) mg mouth Von Lantigua, 07/12/2018 every M.D.,[facility] evening Klor-Con M10 07/11/2017 Hx Tablets ER 10Meq 14tabs 1 by Matthew Lantigua, 07/22/2017 every day M.D.,[facility] Amlodipine Besylate 06/16/2017 Hx Tablets 2.5mg 30tabs 1 by Matthew Lantigua, 06/16/2017 every day M.D.,[facility] Eliquis 04/08/2017 Hx Tablets 2.5mg 60tabs 1 tablet Other - by mouth Ordering 04/22/2017 twice a Provider day. blood thinner. Atorvastatin 04/08/2017 Hx Tablets 40mg 30tabs take one Douglas Calcium - tablet by Nelson, 02/11/2018 mouth hs M.D. Carafate 02/24/2017 Hx Tablets 1gm 120tabs Take 1 Marion - Tablet By Nelson, 05/21/2017 Mouth AT M.D. 6Am , 11Am, 5PM, And 9PM (pt not taking) Iron 01/27/2017 Hx Tablets 325(65Fe) 30tabs 1 by Chase - mg mouth Alejandro, [employer] 04/22/2017 every day Hydrocodone-Acetami 12/25/2016 Hx Tablets 5-325mg 10tabs 1 tab M Douglas nophen - three 5 Corona, 10/15/2017 times a 1 M.D. day as . needed 1 pain 6 Amlodipine Besylate 12/11/2016 Hx Tablets 2.5mg 30tabs Take two Marion - TABLETs Nelson, 05/21/2017 By Mouth M.D. Every Morning (no longer taking) Amlodipine Besylate 11/27/2016 Hx Tablets 5mg 30tabs 1 by Marion - mouth Pachikara, 12/11/2016 every day M.D. Proair Respiclick 11/20/2016 Hx Aerosol 108(90Bas 1units 2 puffs 3 R Douglas - e) times a 0 Pachikara, 2017 mcg/Act day with 5 M.D. spacer Fluticasone 11/20/2016 Hx Suspension 50mcg/Act 9.900ml 2 sprays R Douglas Propionate - each [facility], 12/25/2016 nostril 5 M.D. daily Doxycycline Hyclate 11/13/2016 Hx Capsules 100mg 20caps 1 cab J Marion - twice a 2 Pachikara, 11/22/2016 day 0 M.D. . 9 Prednisone 11/13/2016 Hx Tablets 10mg 20tabs 4 J Douglas - [id number] 2 Pachikara, 11/22/2016 [id number] 0 M.D. s,[id number] . ays,1tabx 9 day. Losartan 11/12/2016 Hx Tablets 50-12.5mg 30tabs take one Marion Potassium/Hydrochlo - tab daily [facility], rothiazide 11/13/2016 M.D. Famotidine 11/07/2016 Hx Tablets 20mg 60tabs 1 tablet Marion - twice [facility], 2017 daily M.D. Fludrocortisone 11/01/2016 Hx Tablets 0.1mg 30tabs 1 by Other Acetate - mouth Ordering 12/25/2016 every day Provider not taking Carafate 11/01/2016 Hx Tablets 1gm 120tabs 1 by Marion - mouth at [facility], 2017 6am, M.D. 11am, 4pm and 9pm Omeprazole 11/01/[address] 20mg 60caps 1 by Douglas - [facility], 2017 twice a M.D. day before meals Hydrocodone-Acetami 08/01/2016 Hx Tablets 5-325mg 30tabs 1 by Marion nophen - mouth [facility], 08/07/2016 daily M.D. bedtime Acetaminophen 07/17/2016 Hx Capsules 500mg 180caps 2 tab by Harpal Cole - mouth 5 Pachikara, 11/05/2016 three 4 M.D. times a . day as 5 needed Clindamycin HCL 05/07/2016 Hx Capsules 150mg 9caps one Joey Von - capsule Brand, 05/13/2016 by mouth M.D. three times a day for 3 days Lisinopril 07/08/2014 Hx Tablets 20mg 1/2 Gen, - tablet by Mikal Banks, 06/04/2016 mouth MD every day Hydrocodone-Acetami 07/08/2014 Hx Tablets 10-325mg 120tabs 1 tab by Douglas kc - mouth Pachikara, 07/17/2016 every 6 M.D. hours as needed Ropinirole HCL 10/04/2013 Hx Tablets 0.25mg 60tabs 2 PO Qhs Azalea Junior, 06/18/2014 M.D. Metoprolol 03/05/2013 Hx Tablets ER 100mg 180tabs 1 tab by Young Dunlap Succinate ER - 24HR mouth Mittal, 03/05/2013 twice a M.D., day [facility] Metoprolol Tartrate 03/05/2013 Hx Tablets 100mg 180tabs 1/2 tab Andres Tavera - by mouth Von Lantigua, 11/20/2016 twice a M.D.,FACP day 11/06/16 (pt taking 1 po bid s/p [facility] stay) Carbidopa/Levodopa 12/01/2012 Hx Tablets 25-100mg 165tabs take 1-1 Azalea Banks - 1/2 gaye Junior, 01/03/2014 po 4 M.D. times daily as directed (1 1/2 - 1 1/2 - 1 1/2 - 1) Tikosyn 10/22/2012 Hx Capsules 250mcg 60caps 1 by Young Dunlap - mouth Kyrie, 10/26/2016 twice a M.D., day [facility] Jantoven 10/21/2012 Hx Tablets 2mg 90tabs as Young Dunlap - directed Kyrie, 11/04/2016 M.D., [facility] Metoprolol Tartrate 08/28/2012 Hx Tablets 50mg 270tabs /2 tabs Young Dunlap - by mouth Kyrie, 03/05/2013 twice a M.D., day [facility] Furosemide 06/16/2012 Hx Tablets 20mg 30tabs 1 by Young Dunlap - aron Mittal, 11/05/2016 every M.D., morning [facility] Lisinopril 06/15/2012 Hx Tablets 5mg 30tabs 1 tab by Young Mittal, 08/02/2014 every day M.D., [facility] Hydrocodone/Acetami Hx Tablets 5-325mg 40tabs 1 tab po Unknown nophen - qid prn 08/02/2014 Vitamin D3 Hx Capsules 2000Unit 1 by Unknown - mouth 01/22/2016 every day Vitamin B-12 Hx Tablets 1000mcg 1 by Unknown - mouth 12/22/2015 every day Hydrocodone-Acetami Hx Tablets 5-325mg 60tabs 1 by Douglasmat atkinsonhen - mouth Thaddeusikara, 07/25/2016 twice M.D. daily prn. Lisinopril Hx Tablets 10mg 1 by Unknown - mouth 11/05/2016 every day Pain Relief 8 Hour Hx Tablets ER 650mg 1 by Unknown - mouth 12/21/2017 three times a day as needed for pain Sucralfate Hx Tablets 1gm 1 tablet Unknown - by mouth 04/28/2017 at 6am,11am, 4pm, and 9pm Omeprazole Hx Capsules DR 20mg 60caps take one Marion - capsule Thaddeusika, 01/01/2018 by mouth M.D. twice a day x 6 weeks then decrease to 1 cap daily Prednisolone Hx Suspension 1% 1 drop 4 Unknown Acetate - times/ 12/21/2017 day in Right eye Ketorolac Hx Solution 0.5% Unknown Tromethamine - 12/21/2017 Ofloxacin Hx Solution 0.3% 2 gtta Unknown (Ophthalmic) - 12/21/2017 Aspirin 81 Low Dose Hx Chewtabs 81mg 1 by Unknown - mouth 01/01/2018 every day Medications Administered in Office Medication Date Status Form Strength Qnty SIG Indications Ordering Provider Inj, Administered Injection Young Dunlap Regadenoson, 018 Mittal, 0.1 MG M.DGrant, FACC, FASNC Technetium TC Administered Injection Youngdelphine Dunlap 99M 018 Kyrie, Tetrofivette, Addison, FACC, Per Unit Dose FASNC Up To 40 Millicuries Inj, Administered Injection Joey DGrant Regadenoson, 013 Addison Bull 0.1 MG Technetium TC Administered Injection Joey DGrant 99M 013 Addison Bull Tetrofosmin, Per Unit Dose Up To 40 Millicuries Immunizations CPT Code Status Date Vaccine Reaction Lot # [id number] Given 05/21/2017 Influenza Virus Vaccine, [id number] Quadrivalent, Split, Preservative Free [id number] Given 05/21/2017 Pneumococcal Conjugate [id number] Vaccine 13 Valent For Intramuscular Use 00394 Given 08/07/2016 Zoster (Zostavax) no immediate reaction [id number] noted ... hh Vital Signs Date Vital Result Comment 11/17/2018 4:11pm Height 59 inches 4'11" Weight 131.00 lb Heart Rate 96 /min BP Systolic 139 mmHg BP Diastolic 94 mmHg Body Temperature 97.7 F O2 % BldC Oximetry 97 % BMI (Body Mass Index) 26.5 kg/m2 09/24/2018 10:34am Height 59 inches 4'11" Weight 129.25 lb Heart Rate 66 /min BP Systolic 120 mmHg BP Diastolic 72 mmHg Body Temperature 97.5 F O2 % BldC Oximetry 97 % BMI (Body Mass Index) 26.1 kg/m2 09/10/2018 10:00am Height 59 inches 4'11" Weight 132.75 lb Heart Rate 64 /min a fib BP Systolic Sitting 150 mmHg left arm reg adult cuff BP Diastolic Sitting 110 mmHg left arm reg adult cuff Respiratory Rate 20 /min Body Temperature 97.2 F BMI (Body Mass Index) 26.8 kg/m2 09/08/2018 12:53pm Height 59 inches 4'11" Weight 126.00 lb Heart Rate 73 /min BP Systolic Sitting 140 mmHg Lue sm cuff BP Diastolic Sitting 90 mmHg Lue sm cuff BP Systolic Standing 130 mmHg Lue sm cuff BP Diastolic Standing 90 mmHg Lue sm cuff Respiratory Rate 17 /min O2 % BldC Oximetry 96 % BMI (Body Mass Index) 25.4 kg/m2 Ejection Fraction 50-55% 03/12/17 08/26/2018 11:34am Height 59 inches 4'11" Weight 126.00 lb Heart Rate 96 /min BP Systolic Sitting 171 mmHg Left auto BP Diastolic Sitting 119 mmHg Left auto BP Systolic Standing 160 mmHg Right arm BP Diastolic Standing 99 mmHg Right arm Body Temperature 96.9 F Pain Level 8 lower back O2 % BldC Oximetry 95 % BMI (Body Mass Index) 25.4 kg/m2 08/04/2018 2:33pm Height 59 inches 4'11" Weight 127.00 lb Heart Rate 74 /min BP Systolic Sitting 160 mmHg L arm auto BP Diastolic Sitting 109 mmHg L arm auto BP Systolic Standing 153 mmHg R arm auto BP Diastolic Standing 90 mmHg R arm auto Body Temperature 98.0 F Pain Level 8 back when moving O2 % BldC Oximetry 93 % BMI (Body Mass Index) 25.6 kg/m2 07/24/2018 11:58am Height 59 inches 4'11" Weight [...] Test Result H/L Range Note Laboratory test 11/06/2018 [facility] Blood Culture SEE RESULT [address] [place] [address] [phone] Urinalysis 11/06/2018 [facility] Urine Color Lamar Profile [address] [place] [address] [phone] Urine Appearance Cloudy Urine Specific [place] 1.021 N 1.010-1.030 Urine pH 6.0 N 5-9 Urine Urobilinogen Positive Abnormal Negative Urine Ketones Trace Abnormal Negative Urine Protein 1+(30 mg/dL) Abnormal Negative Urine Leukocytes Trace Abnormal Negative Urine Blood 1+ Abnormal Negative Urine Nitrite Negative Negative Urine Bilirubin Negative Negative Urine Glucose Negative Negative Urine White Blood Cell 2+(11-20/hpf) Abnormal Absent Urine Red Blood Cell 1+(3-5/hpf) Abnormal Absent Urine Bacteria Absent Absent Urine Squamous Epithelial Cell Present Abnormal Absent Laboratory test 11/06/2018 [facility] Troponin-I (TnI) 0.01 ng/ mL <0.[address] [place] [address] [phone] Comp Metabolic 11/06/2018 [facility] Sodium 137 mmol/L N 135- [address] [place] [address] [phone] Potassium 4.3 mmol/L N 3.5-5.0 Chloride 102 mmol/L N 101-111 Co2 Carbon Dioxide 26 mmol/L N 22-32 Anion Gap 9 mmol/L N 2-11 Glucose 127 mg/dL High 70-100 Blood Urea Nitrogen 37 mg/dL High 6-24 Creatinine 1.23 mg/dL High 0.51-0.95 BUN/Creatinine Ratio 30.1 High 8-20 Calcium 9.6 mg/dL N 8.6-10.3 Total Protein 7.4 g/dL N 6.4-8.9 Albumin 4.4 g/dL N 3.2-5.2 Globulin 3.0 g/dL N 2-4 Albumin/Globulin Ratio 1.5 N 1-3 Total Bilirubin 4.10 mg/dL High 0.2-1.0 Alkaline Phosphatase 142 U/L High 34-104 Alt 41 U/L N 7-52 Ast 307 U/L High 13-39 Egfr Non- 42.0 >60 Egfr 50.8 >60 3 Inr/Protime 11/06/2018 [facility] Inr 1.10 High 0.77-1.[address] [place] [address] [phone] Laboratory test 11/06/2018 [facility] Lactic Acid 0.5 N 0.5- 2.0 [address] mmol/[place] [address] [phone] CBC Auto Diff 11/06/2018 [facility] White Blood 16.4 High 3.5- 10.[address] Count 10^3/[place] [address] [phone] Red Blood Count 4.21 10^6/uL N 3.70-4.87 Hemoglobin 13.0 g/dL N 12.0-16.0 Hematocrit 39 % N 33-41 Mean Corpuscular Volume 93 fL N 80-97 Mean Corpuscular Hemoglobin 31 pg N 27-31 Mean Corpuscular HGB Conc 33 g/dL N 31-36 Red Cell Distribution Width 14 % N 10.5-15 Platelet Count 231 10^3/uL N 150-450 Mean Platelet Volume 8.6 fL N 7.4-10.4 Abs Neutrophils 15.6 10^3/uL High 1.5-7.7 Abs Lymphocytes 0.4 10^3/uL Low 1.0-4.8 Abs Monocytes 0.4 10^3/uL N 0-0.8 Abs Eosinophils 0 10^3/uL N 0-0.6 Abs Basophils 0.1 10^3/uL N 0-0.2 Abs Nucleated RBC 0 10^3/uL Granulocyte % 94.7 % Lymphocyte % 2.2 % Monocyte % 2.7 % Eosinophil % 0 % Basophil % 0.4 % Nucleated Red Blood Cells % 0 Urine Culture And 11/06/2018 [facility] Urine SEE RESULT [address] [place] [address] [phone] Poc Urinalysis 07/31/2018 [facility] Poc Glucose, Negative Negative [address] [place] [address] [phone] Poc Bilirubin, Urine Negative Negative Poc Ketone, Urine Trace Abnormal Negative Poc Specific [place], Urine 1.020 N 1.010-1.030 Poc Blood, Urine Negative Negative Poc pH, Urine 6.0 N 5-9 Poc Protein, Urine Trace Abnormal Negative Poc Urobilinogen, Urine 0.2 Negative Poc Nitrite, Urine Negative Negative Poc Leukocytes, Urine Negative Negative Poc Color, Urine Lamar Poc Clarity, Urine Slightly Cloudy 6 Laboratory test 12/26/2017 [facility] Surgical Interface SEE RESULT [address] [place] [address] [phone] Inr/Protime 12/24/2017 [facility] Inr 0.90 N [address] -1.0 [place] [address] [phone] Lipid Profile 10/22/2017 [facility] Triglycerides 127 mg/dL 8, 9 (Trig/Chol/HDL) [address] [place] [address] [phone] Cholesterol 151 mg/dL 10 HDL Cholesterol 64.3 mg/dL 11 LDL Cholesterol 61 mg/dL 12 Laboratory test 09/06/2017 [facility] Lactic Acid 0.8 mmol/L N 0.5-2.[address] [place] [address] [phone] CBC Auto Diff 09/06/2017 [facility] White Blood 9.1 10^3/uL N 3.5-10.[address] [place] [address] [phone] Red Blood Count 3.57 10^6/uL Low 4.0-5.4 [...] Cells % 0 Comp Metabolic Panel 09/06/2017 [facility] Sodium 139 mmol/L N 133-[address] [place] [address] [phone] Potassium 3.9 mmol/L N 3.5-5.0 Chloride 102 [...] Egfr Non- 56.7 >60 Egfr 73.0 >60 14 Laboratory test 09/06/2017 [facility] Magnesium 2.0 mg/dL N 1.9-2.7 finding [address] [place] [address] [phone] Troponin-I (TnI) 0.02 ng/mL <0.04 B-Type Natriuretic Peptide BNP 512 pg/mL High 15 Inr/Protime 09/06/2017 [facility] Inr 0.98 N 0.77-1.02 [address] [place] [address] [phone] Laboratory test 09/06/2017 [facility] Partial 29.7 seconds N 26.0-36.[address] [facility] [place] [address] PTT [phone] Basic Metabolic 07/12/2017 [facility] Sodium 141 mmol/L N 133- [address] [place] [address] [phone] Potassium 3.4 mmol/L Low 3.5-5.0 Chloride 102 mmol/L N 101-111 Co2 Carbon Dioxide 30 mmol/L N 22-32 Anion Gap 9 mmol/L N 2-11 Glucose 121 mg/dL High 70-100 Blood Urea Nitrogen 24 mg/dL N 6-24 Creatinine 0.89 mg/dL N 0.51-0.95 BUN/Creatinine Ratio 27.0 High 8-20 Calcium 9.2 mg/dL N 8.6-10.3 Egfr Non- 61.2 >60 Egfr 78.7 >60 16 Laboratory test 07/12/2017 [facility] Magnesium 1.5 mg/dL Low 1.9-2.[address] [place] [address] [phone] Inr/Protime 07/12/2017 [facility] Inr 0.99 N 0.89-1.[address] [place] [address] [phone] Urinalysis 06/16/2017 [facility] Urine Color Yellow N Profile [address] [place] [address] [phone] Urine Appearance Clear N Urine Specific [place] 1.013 N 1.010-1.030 Urine pH 6.0 N [...] Present Abnormal Absent Urine Culture And 06/16/2017 [facility] Urine Culture SEE RESULT [address] [place] [address] [phone] CBC Auto Diff 06/15/2017 [facility] White Blood 6.9 10^3/uL N 3.5-[address] Count 0.8 [place] [address] [phone] Red Blood Count 3.71 10^6/uL Low 4.0-5.4 [...] Blood Cells % 0 N Inr/Protime 06/15/2017 [facility] Inr 0.98 N 0.89-1.[address] [place] [address] [phone] Laboratory test 06/15/2017 [facility] Partial 26.6 seconds N 26.0-36.[address] [place] [address] PTT [phone] Comp Metabolic 06/15/2017 [facility] Sodium 140 mmol/L N 133- [address] [place] [address] [phone] Potassium 2.8 mmol/L Low 3.5-5.0 Chloride 102 [...] 52.3 N >60 Egfr 67.2 N >60 18 Type & Screen 06/15/2017 [facility] Patient Blood Type O Positive N [address] [place] [address] [phone] Antibody Screen NEGATIVE N Inr/Protime 05/12/2017 [facility] Inr 0.91 N 0.89-1.[address] [place] [address] [phone] Laboratory test 05/12/2017 [facility] Partial 27.0 seconds N 26.0-36.[address] [place] [address] PTT [phone] Lactic Acid 1.1 mmol/L N 0.5-2.0 19 CBC Auto Diff 05/12/2017 [facility] White Blood 8.7 10^3/uL N 3.5-10.[address] [place] [address] [phone] Red Blood Count 4.08 10^6/uL N 4.0-5.4 [...] % 0 N Comp Metabolic Panel 05/12/2017 [facility] Sodium 140 mmol/L N 133-[address] [place] [address] [phone] Potassium 3.0 mmol/L Low 3.5-5.0 Chloride 104 [...] 58.9 N >60 Egfr 75.7 N >60 20 Laboratory test 05/12/2017 [facility] Magnesium 2.0 mg/dL N 1.9-2.7 [address] [place] [address] [phone] Troponin-I (TnI) 0.00 ng/mL N <0.04 TSH (Thyroid Stim Horm) 0.68 mcIU/mL N 0.34-5.60 Laboratory test 03/12/2017 [facility] Lactic Acid 0.8 mmol/L N 0.5-2.0 [address] [place] [address] [phone] CBC Auto Diff 03/12/2017 [facility] White Blood 11.4 High 3.5- 10.[address] Count 10^3/[place] [address] [phone] Red Blood Count 4.12 10^6/uL N 4.0-5.4 [...] % 0 N Comp Metabolic Panel 03/12/2017 [facility] Sodium 138 mmol/L N 133-145 [address] [place] [address] [phone] Potassium 3.9 mmol/L N 3.5-5.0 Chloride 104 [...] 59.6 N >60 Egfr 76.7 N >60 22 Lipid Profile 03/12/2017 [facility] Triglycerides 98 mg/dL N 23 (Trig/Chol/HDL) [address] [place] [address] [phone] Cholesterol 185 mg/dL N 24 HDL Cholesterol 59.0 mg/dL N 25 LDL Cholesterol 106 mg/dL N 26 Laboratory test 03/12/2017 [facility] Troponin-I 0.01 ng/mL N <0.[address] (TnI) [place] [address] [phone] Inr/Protime 03/12/2017 [facility] Inr 0.94 N 0.89-1.11 [address] [place] [address] [phone] Laboratory test 03/12/2017 [facility] Partial 24.9 Low 26.0- 36.3 finding [place] [address] PTT [phone] Urinalysis 03/12/2017 [facility] Urine [place] [address] [phone] Urine Appearance Cloudy N Urine Specific [place] 1.010 N 1.010-1.030 Urine pH 7.0 N [...] Present Abnormal Absent Type & Screen 03/12/2017 [facility] Patient Blood Type O Positive N [address] [place] [address] [phone] Antibody Screen NEGATIVE N Laboratory test 03/12/2017 [facility] TSH (Thyroid 0.61 mcIU/mL N 0.34-5.60 finding Stim Horm) [place] [address] [phone] Basic Metabolic 12/31/2016 [facility] Sodium 137 mmol/L N 133- 145 [place] [address] [phone] Potassium 4.4 mmol/L N 3.5-5.0 Chloride 104 mmol/L N 101-111 Co2 Carbon Dioxide 23 mmol/L N 22-32 Anion Gap 10 mmol/L N 2-11 Glucose 103 mg/dL High 70-100 Blood Urea Nitrogen 29 mg/dL High 6-24 Creatinine 1.05 mg/dL High 0.51-0.95 BUN/Creatinine Ratio 27.6 High 8-20 Calcium 9.1 mg/dL N 8.6-10.3 Egfr Non- 50.7 N >60 Egfr 65.2 N >60 27 CBC Auto Diff 12/31/2016 [facility] White Blood 7.6 10^3/uL N 3.5-10.[address] [place] [address] [phone] Red Blood Count 3.55 10^6/uL Low 4.0-5.4 [...] Nucleated Red Blood Cells % 0 N CBC Auto Diff 11/20/2016 [facility] White Blood 10.7 10^3/uL N 3.5-10.[address] [place] [address] [phone] Red Blood Count 3.03 10^6/uL Low 4.0-5.4 [...] Cells % 0 N Laboratory test 10/24/2016 [facility] Surgical SEE RESULT [address] [place] [address] [phone] CBC Auto Diff 10/23/2016 [facility] White Blood 9.8 10^3/uL N 3.5-[address] Count .8 [place] [address] [phone] Red Blood Count 2.54 10^6/uL Low 4.0-5.4 [...] Red Blood Cells % 0 N Inr/Protime 10/23/2016 [facility] Inr 4.03 High 0.89-1.[address] [place] [address] [phone] Laboratory test 10/23/2016 [facility] Center Lactic Acid 0.7 N 0.5- 2.0 [address] mmol/[place] [address] [phone] Comp Metabolic 10/23/2016 [facility] Sodium 136 N 133-[address] mmol/[place] [address] [phone] Potassium 4.1 mmol/L N 3.5-5.0 Chloride 104 [...] 21.9 N >60 Egfr 28.2 N >60 30 Laboratory test 10/23/2016 [facility] Magnesium 2.4 mg/dL N 1.9-2.[address] [place] [address] [phone] Troponin-I (TnI) 0.01 ng/mL N <0.04 31 TSH (Thyroid Stim Horm) 0.35 mcIU/mL N 0.34-5.60 Urinalysis Profile 10/23/2016 [facility] Urine Color Yellow N [address] [place] [address] [phone] Urine Appearance Clear N Urine Specific [place] 1.011 N 1.010-1.030 Urine pH 5.0 N [...] Present Abnormal Absent Urine Culture And 10/23/2016 [facility] Urine SEE RESULT [address] [place] [address] [phone] Inr/Protime 10/07/2016 [facility] Inr 2.99 High 0.89- [address] 1[address]11 [place] [address] [phone] Inr/Protime 09/25/2016 [facility] Inr 3.98 High 0.89- [address] 1[address]11 [place] [address] [phone] Inr/Protime 09/19/2016 [facility] Inr 3.51 High 0.89- [address] 1[address]11 [place] [address] [phone] Inr/Protime 08/16/2016 [facility] Inr 2.85 High 0.89- [address] 1[address]11 [place] [address] [phone] Comp Metabolic 08/16/2016 [facility] Sodium 138 mmol/L N 133- [address] 45 [place] [address] [phone] Potassium 4.3 mmol/L N 3.5-5.0 Chloride 103 [...] 60.6 N >60 Egfr 77.9 N >60 34 Lipid Profile 08/16/2016 [facility] Triglycerides 142 mg/dL N 35 (Trig/Chol/HDL) [address] [place] [address] [phone] Cholesterol 224 mg/dL N 36 HDL Cholesterol 55.5 mg/dL N 37 LDL Cholesterol 140 mg/dL N 38 Inr/Protime 07/23/2016 [facility] Inr 2.85 High 0.89-1.[address] [place] [address] [phone] Laboratory test 07/18/2016 [facility] Magnesium 2.3 N 1.9-2.7 39, 40 finding 101 mg/[place] [address] [phone] Basic Metabolic 07/18/2016 [facility] Sodium 137 N 133-145 Panel 101 mmol/[place] [address] [phone] Potassium 4.9 mmol/L N 3.5-5.0 Chloride 104 mmol/L N 101-111 Co2 Carbon Dioxide 27 mmol/L N 22-32 Anion Gap 6 mmol/L N 2-11 Glucose 102 mg/dL High 70-100 Blood Urea Nitrogen 33 mg/dL High 6-24 Creatinine 0.94 mg/dL N 0.51-0.95 BUN/Creatinine Ratio 35.1 High 8-20 Calcium 9.4 mg/dL N 8.6-10.3 Egfr Non- 57.6 N >60 Egfr 74.1 N >60 41 Inr/Protime 07/01/2016 [facility] Inr 1.91 High 0.89-1.[address] [place] [address] [phone] Laboratory test 07/01/2016 [facility] Magnesium 2.1 mg/dL N 1.9-2.[address] [place] [address] [phone] Basic Metabolic 07/01/2016 [facility] Sodium 138 N 133-145 Panel 101 mmol/[place] [address] [phone] Potassium 4.3 mmol/L N 3.5-5.0 Chloride 102 mmol/L N 101-111 Co2 Carbon Dioxide 29 mmol/L N 22-32 Anion Gap 7 mmol/L N 2-11 Glucose 104 mg/dL High 70-100 Blood Urea Nitrogen 23 mg/dL N 6-24 Creatinine 0.94 mg/dL N 0.51-0.95 BUN/Creatinine Ratio 24.5 High 8-20 Calcium 9.2 mg/dL N 8.6-10.3 Egfr Non- 57.6 N >60 Egfr 74.1 N >60 43 Inr/Protime 06/21/2016 [facility] Inr 2.89 High 0.89-1.11 DR[address] [place], [place] [phone] Inr/Protime 06/13/2016 [facility] Inr 3.30 High 0.89-1.11 [place] [address] [phone] Inr/Protime 06/07/2016 [facility] Inr 1.58 High 0.89-1.11 [place] [address] [phone] Inr/Protime 05/29/2016 [facility] Inr 1.61 High 0.89-1.11 DRIVE [place], [place] [address] [phone] Laboratory test 05/07/2016 [facility] Surgical SEE RESULT [address] [place] [address] [phone] Pre Cath Panel 05/03/2016 [facility] Partial 31.8 N 26.0-36.3 DR[place] [address] [phone] CBC Auto Diff 05/03/2016 [facility] White Blood 8.4 N 3.5- 10.8 DRIVE Count 10^3/[place] [address] [phone] Red Blood Count 3.32 10^6/uL Low 4.0-5.4 [...] Red Blood Cells % 0 N Inr/Protime 05/03/2016 [facility] Inr 2.03 High 0.89-1.[address] [place] [address] [phone] Basic Metabolic 05/03/2016 [facility] Sodium 138 mmol/L N 133- 145 Panel [address] [place] [address] [phone] Potassium 4.7 mmol/L N 3.5-5.0 Chloride 105 mmol/L N 101-111 Co2 Carbon Dioxide 25 mmol/L N 22-32 Anion Gap 8 mmol/L N 2-11 Glucose 95 mg/dL N 70-100 Blood Urea Nitrogen 31 mg/dL High 6-24 Creatinine 1.21 mg/dL High 0.51-0.95 BUN/Creatinine Ratio 25.6 High 8-20 Calcium 8.9 mg/dL N 8.6-10.3 Egfr Non- 43.0 N >60 Egfr 55.3 N >60 45 CBC Auto Diff 04/09/2016 [facility] White Blood 6.1 10^3/uL N 3.5-10.[address] [place] [address] [phone] Red Blood Count 3.53 10^6/uL Low 4.0-5.4 [...] % 0 N Comp Metabolic Panel 04/09/2016 [facility] Albumin 3.8 g/dL N 3.2-5.2 [address] [place] [address] [phone] Total Bilirubin 0.40 mg/dL N 0.2-1.0 Sodium [...] 43.9 N >60 Egfr 56.4 N >60 46 Laboratory test 04/09/2016 [facility] Free T4 (Free 0.88 ng/dL N 0.61-1.[address] [facility] Thyroxine) [place] [address] [phone] TSH (Thyroid Stim Horm) 0.50 mcIU/mL N 0.34-5.60 Vitamin B12 411 pg/mL N 180-914 47 Inr/Protime 11/07/2015 [facility] Inr 2.32 High 0.89-1.11 [address] [place] [address] [phone] Laboratory test 01/02/2015 [facility] Inr 1.58 High 0.78-1.07 finding [address] [place] [address] [phone] Laboratory test 06/02/2014 [facility] Vitamin B12 209 pg/mL N 180-914 48 finding [address] [place] [address] [phone] TSH (Thyroid Stimulating Horm) 0.44 IU/mL N 0.34-5.60 CRP High Sensitivity 13.43 mg/L N 49 Lipid Profile 06/02/2014 [facility] Triglycerides 144 mg/dL N 50 (Trig/Chol/HDL) [address] [place] [address] [phone] Cholesterol 165 mg/dL N 51 HDL Cholesterol 39.6 mg/dL N 52 LDL Cholesterol 97 mg/dL N 53 Comp Metabolic Panel 06/02/2014 [facility] Sodium 137 mmol/L N 133-145 [address] [place] [address] [phone] Potassium 4.6 mmol/L N 3.7-5.6 Chloride 101 [...] 55.8 N >60 Egfr 71.8 N >60 54 Inr/Protime 06/02/2014 [facility] Inr 1.65 High 0.85-1.[address] [place] [address] [phone] CBC Auto Diff 06/02/2014 [facility] White Blood 8.0 N 4.8- 10.[address] Count 10^3/[place] [address] [phone] Red Blood Count 3.44 10^6/uL Low 4.0-5.4 [...] Nucleated Red Blood Cells % 0.1 N Laboratory test 03/28/2014 [facility] Inr 2.50 High 0.85-1.[address] [place] [address] [phone] Laboratory test 03/18/2014 [facility] Inr 1.42 High 0.85-1.[address] [place] [phone] Laboratory test 02/24/2014 [facility] Inr 3.41 High 0.85-1.[address] [place] [phone] Laboratory test 02/04/2014 [facility] Inr 1.99 High 0.85-1.[address] [place] [phone] Laboratory test 01/20/2014 [facility] Inr 1.67 High 0.85-1.[address] [place] [phone] Laboratory test 11/01/2013 [facility] Inr 2.34 High 0.85-1.[address] [place] [phone] Inr/Protime 10/04/2013 Inr 3.57 High 0.85-1.06 Laboratory test 07/29/2013 [facility] Inr 1.95 High 0.85-1.06 [address] [place] [phone] Laboratory test 07/22/2013 [facility] C Reactive < 0.5 Less than 0.[address] [place] [address] Protein mg/[place] [address] [phone] Erythrocyte Sed Rate 15 mm/Hr 0-40 Jolly (Anti-Nuclear AB) Screen Negative Negative 56 Rheumatoid Factor <15 IU/mL <15 57 Laboratory test 07/22/2013 [facility] Inr 4.62 High 0.85-1.06 [address] [place] [address] [phone] Laboratory test 06/02/2013 [facility] Inr 3.08 High 0.87-0.[address] [place] [phone] Basic Metabolic 06/02/2013 [facility] Sodium 138 mmol/L 133- [address] [place] [phone] Potassium 4.4 mmol/L 3.5-5.0 Chloride 104 mmol/L 101-111 Co2 Carbon Dioxide 27.0 mmol/L 22-32 Anion Gap 7.0 mmol/L 2-11 Glucose 88 mg/dL 70-100 Blood Urea Nitrogen 17 mg/dL 6-24 Creatinine 1.00 mg/dL 0.50-1.40 BUN/Creatinine Ratio 17.0 8-20 Calcium 9.2 mg/dL 8.1-9.9 Egfr Non- 54.1 >60 Egfr 69.5 >60 59 Laboratory test 06/02/2013 [facility] Magnesium 2.3 mg/dL 1.7 -2.6 finding [address] [place] [address] [phone] Laboratory test 04/07/2013 [facility] Inr 2.42 High 0.87-0.97 finding [address] [place] [address] [phone] Laboratory test 03/29/2013 [facility] Inr 1.66 High 0.87-0.[address] [place] [phone] Laboratory test 03/22/2013 [facility] Inr 1.79 High 0.87-0.97 finding [address] [place] [address] [phone] Basic Metabolic 01/06/2013 [facility] Sodium 142 mmol/L 133- 145 Panel [address] [place] [address] [phone] Potassium 3.8 mmol/L 3.5-5.0 Chloride 109 mmol/L 101-111 Co2 Carbon Dioxide 26.0 mmol/L 22-32 Anion Gap 7.0 mmol/L 2-11 Glucose 119 mg/dL High 70-100 Blood Urea Nitrogen 15 mg/dL 6-24 Creatinine 1.00 mg/dL 0.50-1.40 BUN/Creatinine Ratio 15.0 8-20 Calcium 9.2 mg/dL 8.1-9.9 Egfr Non- 54.2 >60 Egfr 69.7 >60 60 Laboratory test 01/06/2013 [facility] Magnesium 2.1 mg/dL 1.7 -2.6 finding [address] [place] [address] [phone] Inr/Protime 01/06/2013 [facility] Inr 2.24 High 0.87-0.97 [address] [place] [address] [phone] Laboratory test 08/21/2012 [facility] Inr 3.56 High 0.82-1.17 [address] [place] [phone] Laboratory test 05/28/2012 [facility] Magnesium 2.5 mg/dL 1.7 -2.[address] [place] [phone] Basic Metabolic 05/28/2012 [facility] Sodium 138 mmol/L 133- [address] [place] [address] [phone] Potassium 4.2 mmol/L 3.5-5.0 Chloride 110 mmol/L 101-111 Co2 Carbon Dioxide 26.0 mmol/L 22-32 Anion Gap 2.0 mmol/L 2-11 Glucose 100 mg/dL 70-100 Blood Urea Nitrogen 17 mg/dL 6-24 Creatinine 0.90 mg/dL 0.50-1.40 BUN/Creatinine Ratio 18.9 8-20 Calcium 9.1 mg/dL 8.1-9.9 Egfr Non- 61.2 >60 Egfr 78.7 >60 62 Laboratory test finding 05/28/2012 [facility] Inr 2.06 High 0.82-1.[address] [place] [address] [phone] 1 SEE RESULT BELOW Name: LIUDMILA PHELAN : [address]: Aniceto Espinosa MD Acct: [id number] Unit: [id number] AGE: 78 Location: ED Re11/06/18 SEX: F Status: DEP ER SPEC: [id number] NATE: 11/07/18 [facility] DR: Alberto Brito MD REQ: [id number] RECD: 11/07/18 STATUS: INDIO GALLARDO DR: Aniceto Damon MD _ SOURCE: BLOOD,VENO [facility]: ORDERED: Blood Cult Procedure Result Reported Site Aerobic Culture Bottle Final 11/12/1832 ML No Growth Day 5 Anaerobic Culture Bottle Final 11/12/1832 ML No Growth Day 5 * ML - Main Lab . END OF REPORT DEPARTMENT OF PATHOLOGY, [address] [place] [address] Enrrique Roberts M.D. Director [facility] # [id number] 2 Troponin-I testing on Plasma Separator Tubes (PST) has a known false positive rate of 0.20-0.40%. All positive troponins reflex immediate secondary confirmatory testing. 3 Because ethnic data is not always [...] 5 Kidney failure <15 (or dialysis) 4 [facility] Severe Sepsis and Septic Shock Management Bundle Measure requires all lactic acids initially measuring >2.0 mmol/L be repeated. 5 SEE RESULT BELOW Name: LIUDMILA PHELAN : [address]: Aniceto Espinosa MD Acct: [id number] Unit: [id number] AGE: 78 Location: ED Re11/06/18 SEX: F Status: DEP ER SPEC: [id number] NATE: 11/06/18 [facility] DR: Aniceto Espinosa MD REQ: [id number] RECD: 11/06/18 STATUS: INDIO TRACY DR: Douglas Damon MD _ SOURCE: URINE [facility]: ORDERED: Urine Culture Procedure Result Reported Site Urine Culture Final 11/08/18- 1144 ML Organism 1 ESCHERICHIA COLI [place] Count 25-50,000 (Moderate) CFU/ML Organism 2 NORMAL TIMOTHY [place] Count 1-10,000 (Few) CFU/ML 1. ESCHERICHIA COLI M.I.C. RX --------- ------ Ampicillin 8 S Cefazolin <=4 S Cefepime <=1 S Ceftriaxone <=1 S Ciprofloxacin <=0.25 S Gentamicin <=1 S Levofloxacin <=0.12 S Meropenem <=0.25 S Nitrofurantoin <=16 S Tetracycline <=1 S Pipercillin/Tazobactam <=4 S Trimethoprim/Sulfamethoxazole <=20 S Amoxicillin/Clavulanic Acid 4 S Aztreonam <=1 S Contact the Microbiology Department for any additional antibiotic reporting. * - Main Lab . END OF REPORT DEPARTMENT OF PATHOLOGY, [address] [place] [address] Enrrique Roberts M.D. Director [facility] # [id number] [employer] Dean: [id number] 7 SEE RESULT BELOW Name: LIUDMILA PHELAN : [address]: Jayme Guzman MD Acct: [id number] Unit: [id number] AGE: 77 Location: [place] [address] Re12/25/17 Dis: 12/27/17 SEX: F Status: DIS IN SPEC: [id number] NATE: 12/26/17- SUBM DR: Bibiana Andrews DO REQ: [id number] RECD: 12/26/17 STATUS: BLAKE TRACY DR: aJyne Damon MD _ ORDERED: LEVEL 4/2 FINAL [...] CONTINUED ON NEXT PAGE DEPARTMENT OF PATHOLOGY, [address] [place] [address] Enrrique Roberts M.D. Director [facility] # [id number] RUN DATE: 12/30/17 [facility] LAB LIVE PAGE 2 Patient: LIUDMILA PHELAN [id number] (Continued) GROSS DESCRIPTION (Continued) Signed by and Reported on: Anali Malone MD 12/30/17 1131 END OF REPORT DEPARTMENT OF PATHOLOGY, [address] [place] [address] Enrrique Roberts M.D. Director [facility] # [id number] FASTING 10 HOUR 9 Desirable: <150 Borderline High: 150-199 High: 200-499 Very High: >500 10 Desirable: <200 Borderline High: 200-239 High: >239 11 Low: <40 Desirable: 40-60 High: >60 12 Desirable: <100 Near Optimal: 100-129 Borderline High: 130-159 High: 160-189 Very High: >189 13 [facility] Severe Sepsis and Septic Shock [...] 5 Kidney failure <15 (or dialysis) 15 >100 to <200 pg/mL: likely compensated congestive heart failure (CHF) 200 to 400 pg/mL: likely moderate CHF >400 pg/mL: likely moderate to severe CHF 16 Because ethnic data is not always [...] 5 Kidney failure <15 (or dialysis) 17 SEE RESULT BELOW Name: LIUDMILA PHELAN : [address]: Vish Clement MD Acct: [id number] Unit: [id number] AGE: 77 Location: ED Re06/15/17 SEX: F Status: REG ER SPEC: [id number] NATE: 06/16/[address]: Vish Clement MD REQ: [id number] RECD: 06/16/17 STATUS: INDIO TRACY DR: Douglas Damon MD _ SOURCE: URINE [facility]: ORDERED: Urine Culture Procedure Result Reported Site Urine Culture Final 06/17/17- 0839 ML No growth of clinically significant organisms * ML - MAIN LAB ([facility]) . END OF REPORT * ML=Testing performed at Main Lab DEPARTMENT OF PATHOLOGY, [address] [place] [address] Enrrique Roberts M.D. Director [facility] # [id number] 18 Because ethnic data is not always readily [...] 15-29 5 Kidney failure <15 (or dialysis) 19 [facility] Severe Sepsis and Septic Shock Management Bundle Measure requires all lactic acids initially measuring >2.0 mmol/L be repeated. 20 Because ethnic data is not always [...] 5 Kidney failure <15 (or dialysis) 21 [facility] Severe Sepsis and Septic Shock Management Bundle Measure requires all lactic acids initially measuring >2.0 mmol/L be repeated. 22 Because ethnic data is not always readily [...] 15-29 5 Kidney failure <15 (or dialysis) 23 Desirable <150 Borderline high 150-199 High 200-499 Very High >500 24 Desirable <200 Borderline high 200-239 High >239 25 Low <40 Desirable: 40-60 High: >60 26 Desirable: <100 mg/dL Near Optimal: 100-129 mg/dL Borderline High: 130-159 mg/dL High: 160-189 mg/dL Very High: >189 mg/dL 27 Because ethnic data is not always [...] 5 Kidney failure <15 (or dialysis) 28 SEE RESULT BELOW Name: LIUDMILA PHELAN : [address]: Barbi Goff MD Acct: [id number] Unit: [id number] AGE: 76 Location: [place] [address] Re10/24/16 SEX: F Status: ADM IN SPEC: [id number] NATE: 10/24/16-1622 [facility] DR: Venkata Bearden MD REQ: [id number] RECD: 10/24/163514 STATUS: BLAKE TRACY DR: Dagoberto Damon MD [...] performed at Main Lab DEPARTMENT OF PATHOLOGY, [address] [place] [address] Enrrique Roberts M.D. Director [facility] # [id number] 29 [facility] Severe Sepsis and Septic Shock Management Bundle Measure requires all lactic acids initially measuring >2.0 mmol/L be repeated. 30 Because ethnic data is not always [...] 5 Kidney failure <15 (or dialysis) 31 99th percentile=0.04 ng/mL Troponin results at [facility] and [facility] are not interchangeable. 32 SEE RESULT BELOW Name: LIUDMILA PHELAN : [address]: Singh Arvizu MD Acct: [id number] Unit: [id number] AGE: 76 Location: [place] [address] Re10/24/16 SEX: F Status: ADM IN SPEC: [id number] NATE: 10/23/16-1104 [facility] DR: Aniceto Espinosa MD REQ: [id number] RECD: 10/23/16 STATUS: INDIO TRACY DR: Douglas Damon MD _ SOURCE: URINE [facility]: ORDERED: Urine Culture Procedure Result Reported Site Urine Culture Final 10/25/16811 ML Organism 1 PROTEUS MIRABILIS [place] Count 10-25,000 (Moderate) CFU/ML 1. PROTEUS MIRABILIS [...] antibiotic reporting. * ML - MAIN LAB ([facility]) . END OF REPORT * ML=Testing performed at Main Lab DEPARTMENT OF PATHOLOGY, [address] [place] [address] Enrrique Roberts M.D. Director [facility] # [id number] 33 STANDING ORDER ENTERED 05/25/16 EXPIRES 11/12/16 Q MONTHLY AND PRN 34 Because ethnic data is not always [...] 5 Kidney failure <15 (or dialysis) 35 Desirable <150 Borderline high 150-199 High 200-499 Very High >500 36 Desirable <200 Borderline high 200-239 High >239 37 Low <40 Desirable: 40-60 High: >60 38 Desirable: <100 mg/dL Near Optimal: 100-129 mg/dL Borderline High: 130-159 mg/dL High: 160-189 mg/dL Very High: >189 mg/dL 39 ORDERED 06/27/16 EXPIRES 12/25/16 CC: PACHIKARA 40 ORDERED 06/27/16 EXPIRES 12/25/16 CC: [email or web address] 41 Because ethnic data is not always [...] 5 Kidney failure <15 (or dialysis) 42 STANDING ORDER ENTERED 05/25/16 EXPIRES 11/12/16 Q MONTHLY AND PRN 43 Because ethnic data is not always readily [...] 15-29 5 Kidney failure <15 (or dialysis) 44 SEE RESULT BELOW Name: LIUDMILA PHELAN : [address]: Joey Bull MD Acct: [id number] Unit: [id number] AGE: 76 Location: [facility] Re05/07/16 SEX: F Status: REG REF SPEC: [id number] NATE: 05/07/16 [facility] DR: Joey Bull MD REQ: [id number] RECD: 05/07/16 STATUS: SOUT _ ORDERED: LEVEL I FINAL DIAGNOSIS Pacemaker generator: Foreign body (pacemaker generator) (Gross diagnosis). PRE-OPERATIVE DIAGNOSIS Sick sinus syndrome, E.R.I. GROSS DESCRIPTION The specimen is received fresh with no source identified, and consists of a 4.7 x 4.5 x 0.6 cm silver metallic medical affairs director. The following inscription is identified: bluebird bio Sensia [id number] DDDR SN [id number] [facility]. Per established hospital medical staff protocol, no tissue is submitted. Gross only. Signed (signature on file) Anali Malone MD 1046 END OF REPORT * ML=Testing performed at Main Lab DEPARTMENT OF PATHOLOGY, [address] [place] [address] Enrrique Roberts M.D. Director [facility] # [id number] 45 Because ethnic data is not always [...] 5 Kidney failure <15 (or dialysis) 46 Because ethnic data is not always readily [...] 15-29 5 Kidney failure <15 (or dialysis) 47 Normal Range 180 to 914 Indeterminate Range 145 to 180 Deficient Range <145 48 Normal Range 180 to 914 Indeterminate Range 145 to 180 Deficient Range <145 49 Low risk: <1.00 Average risk: 1.00-3.00 High risk: >3.00 50 Desirable <150 Borderline high 150-199 High 200-499 Very High >500 51 Desirable <200 Borderline high 200-239 High >239 52 Low <40 Desirable: 40-60 High: >60 53 Desirable <100 Near Optimal 100-129 Borderline high 130-159 High 160-189 Very High >189 54 Because ethnic data is not always [...] 5 Kidney failure <15 (or dialysis) 55 Please note the change in the INR reference range effective 13. 56 @Sample frozen by [id number] at 1056 on 07/22/13. 57 Test Performed by: [place] [address] Clerk Rating: Carmine Loomis III, M.D. 58 Please note the change in the INR reference range effective 13. 59 Because ethnic data is not always readily [...] 15-29 5 Kidney failure <15 (or dialysis) 60 Because ethnic data is not always readily [...] 15-29 5 Kidney failure <15 (or dialysis) 61 The INR(International Normalized Ratio) was adopted by [...] from prosthetic heart valves 2.5 - 3.5 62 Because ethnic data is not always readily [...] 15-29 5 Kidney failure <15 (or dialysis) 63 Recommended INR for Patients on Oral Anticoagulants Prophylaxis 2.0 - 3.0 Treatment of thrombosis 2.0 - 3.0 Prevention of embolism 2.0 - 3.0 Prevention of embolism from prosthetic heart valves 2.5 - 3.5 Procedures Date Code Description Status 11/27/2018 56087 Pace Maker Eval W/Iterative Adjustment Single Lead Completed 07/27/2018 73347 Stress Test Completed 07/27/2018 78208 Myocardial Perfusion Imaging Tomographic (Spect) Completed Multiple Studies 05/26/2018 48891 Pace Maker Eval W/Iterative Adjment Dual Lead Completed 05/26/2018 80021 Pace Maker Eval W/Iterative Adjment Dual Lead Completed 05/09/2018 83200 EKG, Interpretation Only Completed 05/08/2018 54833 EKG Tracing & Interpretation Completed 05/01/2018 [id number] Diabetic Retinal Eye Exam Completed 04/06/2018 57801 EKG Tracing & Interpretation Completed 01/01/2018 07519 Remove Impacted Cerumen Completed 12/26/2017 90703 Endoscopy Upper GI Biopsy Completed 12/10/2017 54582 Pace Maker Eval W/Iterative Adjment Dual Lead Completed 12/10/2017 21719 Pace Maker Eval W/Iterative Adjment Dual Lead Completed 09/16/2017 34733 EKG Tracing & Interpretation Completed 09/08/2017 09131 Treadmill Interp/Report Only Completed 09/08/2017 40572 Stress Test Supervsn W/Out I/R Completed 07/11/2017 50247 Holter Monitor Review (24 hr)dr review & interp only Completed 07/08/2017 73870 ECG Monitor/Recording W/Visual Superimposition Completed Scanning 05/05/2017 76339 EKG Tracing & Interpretation Completed 03/27/2017 45875 EKG, Interpretation Only Completed 03/14/2017 35491 Interrogation Device Eval In Person W/DR Completed Analysis,Single,Dual,Mul 03/12/2017 11871 EEG Recording Awake & Drowsy Completed 03/12/2017 75900 ECHO Transthorasic Realtime 2D W Doppler & Color Flow Completed Hosp 12/02/2016 64868 Pace Maker Eval W/Iterative Adjment Dual Lead Completed 11/20/2016 17811 Inhalation TX For Acute Airway Obstruction Completed W/Nebulizer/Inhaler 11/06/2016 35743 EKG Tracing & Interpretation Completed 10/28/2016 42079 Treadmill Interp/Report Only Completed 10/28/2016 00343 Stress Test Supervsn W/Out I/R Completed 10/27/2016 44057 EKG, Interpretation Only Completed 10/23/2016 21947 ECHO Transthorasic Realtime 2D W Doppler & Color Flow Completed Hosp 06/04/2016 41325 Pace Maker Eval W/Iterative Adjment Dual Lead Completed 05/07/2016 30131 Removal With Replacement Dual Lead System Pulse Completed Generator 05/01/2016 06021 Interrogation Device Eval In Person W/ Completed Analysis,Single,Dual,Mul 04/19/2016 93484 Pace Maker Eval W/Iterative Adjment Dual Lead Completed 02/21/2016 09851 EKG Tracing & Interpretation Completed 02/09/2016 50423 Interrogation Device Eval In Person W/ Completed Analysis,Single,Dual,Mul 11/09/2015 16193 Interrogation Device Eval In Person W/ Completed Analysis,Single,Dual,Mul 08/16/2015 39578 Pace Maker Eval W/Iterative Adjment Dual Lead Completed 03/14/2015 29179 EKG Tracing & Interpretation Completed 03/08/2015 94707 Interrogation Device Eval In Person W/ Completed Analysis,Single,Dual,Mul 12/27/2014 02502 Interrogation Device Eval In Person W/ Completed Analysis,Single,Dual,Mul 08/03/2014 04593 EKG Tracing & Interpretation Completed 06/08/2014 20334 Pace Maker Eval W/Iterative Adjment Dual Lead Completed 11/18/2013 28937 Pace Maker Eval W/Iterative Adjment Dual Lead Completed 09/08/2013 [id number] Mammogram Completed 05/25/2013 72449 Cardiac Event Monitor Completed 04/23/2013 43494 EKG Tracing & Interpretation Completed 04/22/2013 50987 Pace Maker Eval W/Iterative Adjment Dual Lead Completed 11/09/2012 80575 Pace Maker Eval W/Iterative Adjment Dual Lead Completed 11/06/2012 80308 Myocardial Perfusion Imaging Tomographic (Spect) Completed Multiple Studies 11/06/2012 07018 Stress Test Completed 08/28/2012 86175 EKG Tracing & Interpretation Completed 08/26/2012 81000 Pace Maker Eval W/Iterative Adjment Dual Lead Completed Encounters Type Date Location Provider Dx Diagnosis Office Visit 09/24/2018 [facility] Internal Yisel Scales MD S22.009D Unsp fx unsp thor 10:40a Medicine - vertebra, subs [place] for fx w routn heal Z79.01 nursing home (current) use of anticoagulants I10 Essential (primary) hypertension Office Visit 09/10/2018 10:15a [place] [facility] Aamir Ross, G20 [facility] Jaime disease I48.2 Chronic atrial fibrillation R26.81 Unsteadiness on feet Z91.81 History of falling Z79.01 nursing home (current) use of anticoagulants Office Visit 09/08/2018 1:15p [facility] Young Dunlap R07.9 Chest pain, Of Christin Mittal M.D., unspecified FACC, FASNC Office Visit 08/26/2018 11:20a [facility] Internal Yisel Scales, I10 Essential ( primary) Medicine - hypertension [place] S22.009D Unsp fx unsp thor vertebra, subs for fx w routn heal Office Visit 08/04/2018 2:30p [facility] Internal Yisel Scales, S22.089D Unsp fracture of Medicine T11-T12 vertebra, subs for fx w routn heal I10 Essential (primary) hypertension Office Visit 07/24/2018 [facility] Internal Eva Urena, 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 hypertension R60.0 Localized edema Office Visit 05/29/2018 10:00a [place] [facility] Aamir Ross, G2Anders [facility] Jaime disease I48.2 Chronic atrial fibrillation I10 Essential (primary) hypertension R26.81 Unsteadiness on feet Office Visit 05/09/2018 4:12p [place] [facility] Gustavo Lopes R07.9 Chest pain, Addison Izquierdo unspecified I48.91 Unspecified atrial fibrillation Office Visit 05/09/2018 [facility] Barbi Goff, R07.9 Chest pain, 11:05a elroy Mullins M.D. unspecified Hospitalists I69.398 Other sequelae of cerebral infarction I95.1 Orthostatic hypotension E78.5 Hyperlipidemia, unspecified G20 Parkinson's disease Office Visit 05/08/2018 [facility] Young Dunlap R07.9 Chest pain, 2:15p Of Christin Mittal M.D., unspecified FACC, FASNC Office Visit 05/08/2018 [facility] Barbi Goff, I63.9 Cerebral 11:04a Asselroy morrison M.D. infarction, Hospitalists unspecified I48.91 Unspecified atrial fibrillation R07.9 Chest pain, unspecified G20 Parkinson's disease Office Visit 05/06/2018 4:00p [facility] Internal Eva Urena, I10 Essential ( primary) Medicine N.P. hypertension R07.89 Other chest pain H91.93 Unspecified hearing loss, bilateral R60.0 Localized edema Office Visit 04/06/2018 Shirin Mittal, I48.2 Chronic atrial 1:00p Cardiology Of Harpal.Von, FACC, FASNC fibrillation [facility] Office Visit 03/27/2018 [place] Aamir Ross, G20 Parkinson's 10:15a Neurologic M.D. 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 R20.2 Paresthesia of 1:53p Assoc,elroy Tamayo, MANAGER DIV[employer] skin Hospitalists R42 Dizziness and giddiness I10 Essential (primary) hypertension I48.91 Unspecified atrial fibrillation Office Visit 12/24/2017 Neuro[facility] Steve Shepherd G45.9 Transient 2:13p Clinic Addison Baker cerebral ischemic attack, unspecified I10 Essential (primary) hypertension I48.2 Chronic atrial fibrillation G20 Parkinson's disease Office Visit 12/22/2017 9:30a [place] [facility] Amair Ross, G20 [facility] Jaime disease I48.91 Unspecified atrial fibrillation I49.5 Sick sinus syndrome Z95.0 Presence of cardiac pacemaker Z86.73 Prsnl hx of TIA (TIA), and cereb infrc w/o resid deficits Office Visit 12/10/2017 11:00a [facility] Internal Douglas Damon, I10 Essential (primary) Medicine M.DGrant hypertension I48.2 Chronic atrial fibrillation M25.511 Pain in right shoulder I95.1 Orthostatic hypotension Office Visit 10/15/2017 10:00a [facility] Internal Douglas Damon, I10 Essential (primary) Medicine M.DGrant hypertension R26.81 Unsteadiness on feet I48.2 Chronic atrial fibrillation E78.2 Mixed hyperlipidemia M25.511 Pain in right shoulder Office Visit 09/16/2017 1:45p [facility] Young Germán R07.89 Other chest pain Of Christin Mittal M.D., FACC, FASNC Office Visit 09/12/2017 2:40p [facility] Internal Chase Allen, I10 Essential Medicine [employer]GER [employer] (primary) hypertension R94.5 Abnormal results of liver function studies R07.89 Other chest pain Office Visit 09/08/2017 [facility] R07.9 Chest pain, 8:13a Assocelroy, MANAGER DIV[employer] unspecified Hospitalists G20 Parkinson's disease I48.91 Unspecified atrial fibrillation Z86.73 Prsnl hx of TIA (TIA), and cereb infrc w/o resid deficits Office Visit 09/07/2017 [facility] Ty Parks R07.9 Chest pain, 8:13a elroy Mullins II, M.D. unspecified Hospitalists G20 Parkinson's disease I48.91 Unspecified atrial fibrillation Z86.73 Prsnl hx of TIA (TIA), and cereb infrc w/o resid deficits Office Visit 08/27/2017 9:40a [facility] Internal Douglas L98.9 Disorder of the Brigette Damon M.D. skin and subcutaneous tissue, unspecified R26.81 Unsteadiness on feet Office Visit 07/18/2017 [facility] Paris Cole Z01.818 Encounter for other 1:40p Brigette - Addison Damon preprocedural [address] examination I10 Essential (primary) hypertension I48.2 Chronic atrial fibrillation G20 Parkinson's disease Office Visit 07/15/2017 2:45p [facility] Youngdelphine Dunlap I48.2 Chronic atrial Of Christin Mittal M.D., fibrillation FAC, [facility] H26.9 Unspecified cataract Z01.810 Encounter for preprocedural cardiovascular examination Office Visit 07/15/2017 3:00p [place] [facility] Azalea Banks G20 [facility] Junior M.D. 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 abnormalities of gait and mobility Office Visit 06/18/2017 11:20a [facility] Paris Cole G45.9 Transient cerebral Brigette Damon M.D. ischemic attack, unspecified R42 Dizziness and giddiness R29.6 Repeated falls Office Visit 05/21/2017 8:40a [facility] Paris Damon, I10 Essential (primary) Medicine Addison hypertension I63.9 Cerebral infarction, unspecified I95.2 Hypotension due to drugs Z23 Encounter for immunization Office Visit 05/05/2017 9:45a [facility] Youngdelphine Dunlap I48.0 Paroxysmal atrial Of Christin Mittal M.D., fibrillation FACC, [place] Office Visit 04/22/2017 2:00p [facility] Internal [place] I48.0 Paroxysmal atrial Medicine - [place] [place], fibrillation Rd M.DGrant I10 Essential (primary) hypertension I63.9 Cerebral infarction, unspecified R07.89 Other chest pain R29.6 Repeated falls Office Visit 03/21/2017 Neurohospitalist Shirley I63.9 Cerebral 4:50p Clinic Addison Friedman infarction, unspecified I48.91 Unspecified atrial fibrillation Office Visit 03/20/2017 4:23p [facility] Barbi Goff, I63.20 Cereb infrc Assoc,pc M.D. due to unsp Hospitalists occls or stenos of unsp precerb art I10 Essential (primary) hypertension G20 Parkinson's disease I95.1 Orthostatic hypotension Office Visit 03/19/2017 4:23p [facility] Barbi Goff, I63.20 Cereb infrc Assoc,pc M.D. due to unsp Hospitalists occls or stenos of unsp precerb art I10 Essential (primary) hypertension G20 Parkinson's disease I95.1 Orthostatic hypotension Office Visit 03/17/2017 4:22p [facility] Barbi Goff, I63.20 Cereb infrc Assoc,pc M.D. due to unsp Hospitalists occls or stenos of unsp precerb art I10 Essential (primary) hypertension G20 Parkinson's disease I95.1 Orthostatic hypotension Office Visit 03/16/2017 [facility] Barbi Goff, I63.40 Cerebral 3:43p Assoc,pc M.D. infarction due Hospitalists to embolism of unsp cerebral artery I48.0 Paroxysmal atrial fibrillation I95.1 Orthostatic hypotension Office Visit 03/15/2017 [facility] Barbi Goff, I63.40 Cerebral 3:43p Assoc,pc MGrantD. infarction due Hospitalists to embolism of unsp cerebral artery I48.0 Paroxysmal atrial fibrillation I95.1 Orthostatic hypotension Office Visit 03/14/2017 9:06a [facility] Washington Shepherd R55 Syncope and Of [facility] Hua, FACC collapse I63.9 Cerebral infarction, unspecified Z95.0 Presence of cardiac pacemaker I49.5 Sick sinus syndrome [facility] I[facility].40 Cerebral 3:42p Assocelroy M.D. infarction due Hospitalists to embolism of unsp cerebral artery I48.0 Paroxysmal atrial fibrillation I95.1 Orthostatic hypotension I47.2 Ventricular tachycardia Office Visit 03/13/2017 Neuro[facility]ist Steve Shepherd I63.40 Cerebral 2:31p Clinic Addison Baker infarction due to embolism of unsp cerebral artery I10 Essential (primary) hypertension I48.91 Unspecified atrial fibrillation [facility], I63.40 Cerebral 3:42p Asselroy morrison M.D. infarction due Hospitalists to embolism of unsp cerebral artery I48.0 Paroxysmal atrial fibrillation I95.0 Idiopathic hypotension G20 Parkinson's disease Office Visit 03/12/2017 [facility] Steve Shepherd I63.40 Cerebral 2:31p Clinic Addison Baker infarction due to embolism of unsp cerebral artery I10 Essential (primary) hypertension I48.91 Unspecified atrial fibrillation R55 Syncope and collapse Office Visit 03/12/2017 3:41p [facility] Singh I63.40 Cerebral Assoc,elroy Arvizu MD infarction due Hospitalists to embolism of unsp cerebral artery I48.0 Paroxysmal atrial fibrillation G20 Parkinson's disease I95.1 Orthostatic hypotension Office Visit 02/20/2017 11:45a [place] [facility] Azalea M. G20 [facility] Junior M.D. disease I95.1 Orthostatic hypotension Office Visit 02/03/2017 1:00p Shirin Dunlap I48.0 Paroxysmal atrial Cardiology Of Addison Mittal, fibrillation [facility] FACC, FASNC Office Visit 2017 9:20a [facility] Internal Douglas M51.16 Intervertebral disc Medicine Pachikara, disorders w M.D. radiculopathy, lumbar region I48.0 Paroxysmal atrial fibrillation Office Visit 12/25/2016 10:40a [facility] Internal [place] Pachikara, K29.61 Other gastritis Medicine M.D. with bleeding M51.16 Intervertebral disc disorders w radiculopathy, lumbar region I48.0 Paroxysmal atrial fibrillation I12.9 Hypertensive chronic kidney disease w stg 1-4/unsp chr kdny N18.9 Chronic kidney disease, unspecified Office Visit 11/22/2016 10:00a [facility] Internal Medicine Douglas Damon M.D. R05 Cough - [address] Office Visit 11/20/2016 8:20a [facility] Internal Medicine oDuglas Damon M.D. R05 Cough D64.9 Anemia, unspecified I10 Essential (primary) hypertension Office Visit 11/13/2016 11:15a [place] [facility] Azalea Banks I95.1 Orthostatic Services Of Christin Junior M.D. hypotension G20 Parkinson's disease Office Visit 11/13/2016 9:20a [facility] Internal Douglas Damon, I10 Essential (primary) Medicine Addison hypertension I95.1 Orthostatic hypotension I48.0 Paroxysmal atrial fibrillation K25.0 Acute gastric ulcer with hemorrhage J20.9 Acute bronchitis, unspecified Office Visit 11/06/2016 10:15a [place] [facility] Young Dunlap I48.0 Paroxysmal atrial Addison Mittal, fibrillation [facility], [facility] I49.5 Sick sinus syndrome Z95.0 Presence of cardiac pacemaker I47.2 Ventricular tachycardia R94.31 Abnormal electrocardiogram [ECG] [EKG] Office 11/01/2016 [facility] K92.2 Gastrointestinal Visit 1:21p Assocelroy NP hemorrhage, Hospitalists unspecified R55 Syncope and collapse D64.9 Anemia, unspecified G20 Parkinson's disease Office 10/31/2016 [facility] K92.2 Gastrointestinal Visit 1:20p elroy Mullins NP hemorrhage, Hospitalists unspecified R55 Syncope and collapse D64.9 Anemia, unspecified G20 Parkinson's disease Office Visit 10/30/2016 Neurohospitalist Nils I95.1 Orthostatic 2:53p Jose Alberto Basurto MD hypotension G20 Parkinson's disease Office 10/30/2016 [facility] K92.2 Gastrointestinal Visit 1:19p elroy Mullins NP hemorrhage, Hospitalists unspecified R55 Syncope and collapse D64.9 Anemia, unspecified G20 Parkinson's disease Office Visit 10/29/2016 [facility] K92.2 Gastrointestinal 1:19p Assoc,pc Amrie, MANAGER DIVISION hemorrhage, Hospitalists unspecified D64.9 Anemia, unspecified G20 Parkinson's disease R55 Syncope and collapse Office Visit 10/29/2016 Neurohospitalist Nils I95.1 Orthostatic 2:52p Clinic MD Sherine hypotension G20 Parkinson's disease Office Visit 10/28/2016 [facility] K92.2 Gastrointestinal 10:07a Assoc,pc Marie, MANAGER DIVISION hemorrhage, Hospitalists unspecified D64.9 Anemia, unspecified G20 Parkinson's disease R55 Syncope and collapse Office Visit 10/27/2016 [facility] K92.2 Gastrointestinal 10:06a Assoc,pc Marie, MANAGER DIV[employer] hemorrhage, Hospitalists unspecified D64.9 Anemia, unspecified G20 Parkinson's disease R55 Syncope and collapse Office Visit 10/27/2016 1:52p [place] [facility] Gustavo Lopes I47.2 Ventricular Addison Izquierdo tachycardia R55 Syncope and collapse Office Visit 10/26/2016 [facility] K92.2 Gastrointestinal 10:06a Assoc,pc Marie, MANAGER DIV[employer] hemorrhage, Hospitalists unspecified D64.9 Anemia, unspecified G20 Parkinson's disease R55 Syncope and collapse Office Visit 10/26/2016 1:53p [place] [facility] Gustavo FGrant R55 Syncope and Addison Izquierdo collapse I48.0 Paroxysmal atrial fibrillation I47.2 Ventricular tachycardia Office Visit 10/25/2016 [facility] K92.2 Gastrointestinal 10:05a Assoc,pc Marie, MANAGER DIV[employer] hemorrhage, Hospitalists unspecified D64.9 Anemia, unspecified G20 Parkinson's disease R55 Syncope and collapse Office Visit 10/24/2016 [facility] K92.2 Gastrointestinal 10:05a Assoc,pc Marie, MANAGER DIV[employer] hemorrhage, Hospitalists unspecified D64.9 Anemia, unspecified G20 Parkinson's disease Office Visit 10/23/2016 [facility] Dafne Lord, K92.2 Gastrointestinal 10:04a Assoc,pc N.P. hemorrhage, Hospitalists unspecified D64.9 Anemia, unspecified G20 Parkinson's disease Office Visit 09/23/2016 3:00p [facility] Chase Alejandro, I10 Essential ( primary) Medicine [employer]GER [employer] hypertension S09.90xA Unspecified injury of head, initial encounter Office Visit 08/22/2016 1:45p Nella Banks G2Anders [facility] Junior M.D. 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 G2Anders Parkinson's disease I48.0 Paroxysmal atrial fibrillation Office Visit 06/21/2016 9:30a [place] [facility] Junior M.D. disease G25.81 Restless legs syndrome M54.5 Low back pain M79.661 Pain in right lower leg S80.811S Abrasion, right lower leg, sequela Office Visit 05/01/2016 11:00a [facility] Joey Longoria I49.5 Sick sinus Of Christin Bull M.D. syndrome Z95.0 Presence of cardiac pacemaker Office Visit 04/09/2016 10:15a [place] [facility] Junior M.D. disease G25.81 Restless legs syndrome R40.0 Somnolence Office Visit 02/21/2016 9:15a [facility] Young Dunlap I48.0 Paroxysmal atrial Of Christin Mittal M.D., fibrillation [facility], [facility] Office Visit 10/19/2015 10:45a Nella Caba Parkinson's disease Services Of Christin Junior M.D. G25.81 Restless legs syndrome Office Visit 06/15/2015 10:15a Nella Caba [facility] Of [facility] Junior M.D. disease G25.81 Restless legs syndrome R42 Dizziness and giddiness Office Visit 03/14/2015 1:45p [facility] Youngdelphine Dunlap 427.31 Atrial Of Christin Mittal M.D., Fibrillation [facility], [facility] Office Visit 02/09/2015 9:45a [facility] Azalea Banks 332.0 Paralysis Agitans Services Of Christin Junior M.D. 333.94 Restless Leg Syndrome 783.21 Loss Of Weight Office Visit 10/13/2014 10:15a Nella Banks 332.0 Paralysis Services Of Christin Junior M.D. Agitans 333.94 Restless Leg Syndrome Office Visit 08/03/2014 1:45p [place] [facility] Youngdelphine Dunlap 427.31 Atrial Addison Mittal, Fibrillation [facility], [facility] Office Visit 06/28/2014 9:45a [place] Azalea Banks 332.0 Paralysis [facility] Junior M.D. 333.94 Restless Leg Syndrome Office Visit 08/26/2013 1:15p [place] Azalea Banks 332.0 Paralysis Services Of Christin Junior M.D. Agitans 333.94 Restless Leg Syndrome 729.1 Myalgia & Myositis Unspec Office Visit 07/12/2013 11:45a [facility] Youngdelphine Dunlap 785.1 Palpitations Of Christin Mittal M.D., [facility], [facility] Office Visit 07/09/2013 9:30a [place] Azalea Banks 332.0 Paralysis [facility] M.D. Office Visit 04/23/2013 9:45a [facility] Young Dunlap 427.81 Sinoatrial Node Of Christin Mittal M.D., Dysfunction [facility], [facility] Office Visit 03/12/2013 11:00a [facility] Azalea Banks 332.0 Paralysis [facility] Junior M.D. Office Visit 12/08/2012 11:30a [place] Azalea Banks 332.0 Paralysis [facility] Junior M.D. Office Visit 11/16/2012 8:45a [facility] Youngdelphine Dunlap 414.9 Ischemic Heart Of Christin Mittal M.D., Disease Chronic [facility], [facility] Unspec Office Visit 10/12/2012 11:15a [facility] Youngdelphine Dunlap 427.31 Atrial Of Christin Mittal M.D., Fibrillation FACC, [facility] Office Visit 08/28/2012 8:15a [facility] Young Germán 414.9 Ischemic Heart Of Christin Mittal M.D., Disease Chronic [facility] Unspec 427.31 Atrial Fibrillation Office Visit 05/29/2012 [place] [facility] Azalea HarpalGrant 332.0 Paralysis Agitans 3:00p Services Of [facility] Addison Junior Office Visit 09/09/2006 Neurosurgery Dao Cárdenas 721.0 Spondylosis 3:30p Services Of [facility] Addison Ceballos Cervical W/O Myelopathy 721.3 Spondylosis Lumbar W/O Myelopathy Plan of Treatment Future Appointment(s):12/01/2018 1:45 pm - Young Mittal M.D., [facility], [facility] at [facility]12/23/2018 10:40 am - Yisel Scales MD at [facility] Internal Tqxakgia32/09/2019 1:45 pm - Aamir Ross M.D. at [place] [facility] Of [facility]12/29/2018 9:15 am - Aamir Ross M.D. at [place] [facility]11/17/2018 - Yisel Scales MDK80.80 Other cholelithiasis without xnkniabicrrO31 Essential (primary) hypertensionComments: Continue current [id number] Parkinson's diseaseComments:Continue current odorlpnrsL64.2 Chronic atrial fibrillationComments:Stable; continue same medsR26.81 Unsteadiness on feetFollow up:F/U 4-6 weeks
--- OUTSIDE RECORDS SUMMARY | 2018-11-28 18:24 | XMS REPORT | Continuity of Care Document ---
:1940 External Reference #:[id number] Author Name Tamar Rae Care Team Providers Name Role Phone Yisel Scales MD Primary Care Physician Unavailable Payers Date Identification Numbers Payment Provider Subscriber Effective: 2002 Policy Number: [id number] Medicare Liudmila Phelan PayID: [id number] [address] [place] [address] Policy Number: [id number] [facility] Liudmila Phelan PayID: [id number] [address] [place] [address] Advance Directives Type Date Description Status Comment [facility] Current and Verified Problems Date Description Provider Status Onset: 02/21/2016 Paroxysmal atrial fibrillation Young Mittal M.D., Active [facility] Onset: 02/09/2015 Parkinson's disease Azalea Junior M.D. [...] Chronic atrial fibrillation Young Mittal M.D., Active [facility] Onset: 08/27/2017 Disorder of skin and/or Douglas Damon M.D. Active subcutaneous tissue Onset: 08/27/2017 Abnormal gait Douglas Damon M.D. Active Onset: 09/16/2017 Chest pain Young Mittal M.D., Active [facility] Onset: 10/15/2017 Mixed hyperlipidemia Douglas Damon [...] 08/03/2014 Atrial fibrillation Young Mittal M.D., Inactive [facility] Inactive: 06/16/2017 Onset: 06/15/2015 Dizziness Azalea Junior [...] 06/10/ Active Tablets 20mg 30tabs 1 by Heber Velasquez 2018 mouth Varn, every day N.P. Pradaxa 01/01/ Active Capsules 75mg 60caps 1 by Douglas [facility] mouth Thaddeusika twice a , M.D. day Acetaminophen ER 09/08/ Active Tablets ER 650mg 1 tab by Unknown 2018 mouth q4 hours as needed pain Fludrocortisone 04/08/ Active Tablets 0.1mg 30tabs take one Yisel Acetate 2017 tablet by MD aron Scales once daily Metoprolol 11/20/ Active Tablets 50mg 180tab take one I10 Douglas Tartrate 2016 s tablet by Nelson sharp M.D. twice a day Walker 09/09/ Active Misc 1units 4 wheels, Carlos 2017 brakes Burkinan, and [employer] seat--for daily use Roller Walker 06/11/ Active Misc use daily G20 Azalea Banks 2015 as selwyn Junior M.D. to prevent falls R29.6 Carbidopa-Levodopa 01/03/2014 Active Tablets 25-100mg 195tabs take 2 Aamir Ross M.D. 8am 1.5 tabs noon 1 tab 4pm 2 tabs 8pm Omeprazole Active Capsules DR 40mg 180caps 1 by Douglas mouth Thaddeusika, twice a M.D. day Hydrocodone Active Tablets 5-325mg 30tabs 1 by Yisel Scales Bitartrate/Acetamin mouth MD dupont every 12 hours as needed Amlodipine Besylate Active Tablets 5mg 90tabs take matthew Rizzo MD tablet by mouth once daily Alprazolam Active Tablets 0.25mg Unknown Lisinopril 05/06/2018 Hx Tablets 10mg 30tabs 1 by Greta Velasquez - mouth 1 Varn, N.P. 06/10/2018 every 0 day [place] 12/27/2017 Hx Tablets 5-325mg 1 tab Unknown - tid prn 03/26/2018 Amlodipine Besylate 09/23/2017 Hx Tablets 5mg 90tabs 1 by Leland - mouth [place], 12/29/2017 every M.D. day Amlodipine Besylate 09/18/2017 Hx Tablets 2.5mg 90tabs 1 by Matthew Longoria - mouth [place], 09/23/2017 every M.D.,FACP day Klor-Con M10 07/29/2017 Hx Tablets ER 10Meq 14tabs 1 by Douglas - mouth [place], 09/12/2017 every M.D. day Magnesium-Oxide 07/22/2017 Hx Tablets 400(241.3 90tabs 1 by Matthew Sutherland mg) mg mouth [place], 07/12/2018 every M.D.,FACP evening Klor-Con M10 07/11/2017 Hx Tablets ER 10Meq 14tabs 1 by Matthew Lnogoria - mouth [place], 07/22/2017 every M.D.,FACP day Amlodipine Besylate 06/16/2017 Hx Tablets 2.5mg 30tabs 1 by Matthew Longoria - mouth [place], 06/16/2017 every M.D.,FACP day Eliquis 04/08/2017 Hx Tablets 2.5mg 60tabs 1 Other - tablet Ordering 04/22/2017 by Provider mouth twice a day. blood thinner . Atorvastatin 04/08/2017 Hx Tablets 40mg 30tabs take Douglas Calcium - one [place], 02/11/2018 tablet M.D. by mouth hs Carafate 02/24/2017 Hx Tablets 1gm 120tabs Take 1 Leland - Tablet [place], 05/21/2017 By M.DGrant Mouth AT 6Am , 11Am, 5PM, And 9PM (pt not taking) Iron 01/27/2017 Hx Tablets 325(65Fe) 30tabs 1 by Chase Allen, - mg mouth [employer] 04/22/2017 every day Hydrocodone-Acetami 12/25/2016 Hx Tablets 5-325mg 10tabs 1 tab M Douglas nophen - three 5 [place], 10/15/2017 times a 1 M.D. day as . needed 1 pain 6 Amlodipine Besylate 12/11/2016 Hx Tablets 2.5mg 30tabs Take Douglas - two [place], 05/21/2017 TABLETs M.D. By Mouth Every Morning (no longer taking) Amlodipine Besylate 11/27/2016 Hx Tablets 5mg 30tabs 1 by Leland - mouth [place], 12/11/2016 every M.D. day Proair Respiclick 11/20/2016 Hx Aerosol 108(90Bas 1units 2 puffs R Leland - e) 3 times 0 [place], 2017 mcg/Act a day 5 M.D. with spacer Fluticasone 11/20/2016 Hx Suspension 50mcg/Act 9.900ml 2 R Douglas Propionate - sprays 0 [place], 12/25/2016 each 5 M.D. nostril daily Doxycycline Hyclate 11/13/2016 Hx Capsules 100mg 20caps 1 cab J Leland - twice a 2 [place], 11/22/2016 day 0 M.D. . 9 Prednisone 11/13/2016 Hx Tablets 10mg 20tabs 4 J Douglas - [id number] 2 [place], 11/22/2016 ys 0 M.D. [id number] . ays,2ta 9 [id number] ,1tabxd ay. Losartan 11/12/2016 Hx Tablets 50-12.5mg 30tabs take Leland Potassium/Hydrochlo - one tab [place], rothiazide 11/13/2016 [...] 08/01/2016 Hx Tablets 5-325mg 30tabs 1 by Leland nophen - mouth Thaddeusikara, 08/07/2016 daily M.D. bedtime Acetaminophen 07/17/2016 Hx Capsules 500mg 180caps 2 tab Harpal Cole - by 5 [place], 11/05/2016 mouth 4 M.DGrant three . times a 5 day as needed Clindamycin HCL 05/07/2016 Hx Capsules 150mg 9caps one Joey Longoria - rosalio Bull M.D. 05/13/2016 by mouth three times a day for 3 days Lisinopril 07/08/2014 Hx Tablets 20mg 1/2 Mikal Blevins - davida Banks MD 06/04/2016 by mouth every day Hydrocodone-Acetami 07/08/2014 Hx Tablets 10-325mg 120tabs 1 tab Douglas atkinsonhen - by [place], 07/17/2016 mouth M.D. every 6 hours as needed Ropinirole HCL 10/04/2013 Hx Tablets 0.25mg 60tabs 2 PO Azalea Banks - Ry Junior, 06/18/2014 M.DGrant Metoprolol 03/05/2013 Hx Tablets ER 100mg 180tabs 1 tab Young Dunlap Succinate ER - 24HR by Addison Mittal, 03/05/2013 mouth FACC, [facility] twice a day Metoprolol Tartrate 03/05/2013 Hx Tablets 100mg 180tabs 1/2 tab Andres Lantigua, 11/20/2016 mouth Addison,FACP twice a day 11/06/16 (pt taking 1 po bid s/p [facility] stay) Carbidopa/Levodopa 12/01/2012 Hx Tablets 25-100mg 165tabs take Azalea Banks - 1-1 08/19 Sandi, 01/03/2014 cap po M.DGrant 4 times daily as directe d (1 2 - 1 1/2 - 1 08/19 - 1) Tikosyn 10/22/2012 Hx Capsules 250mcg 60caps 1 by Young Mittal M.D., 10/26/2016 twice a FAC, [facility] day Jantoven 10/21/2012 Hx Tablets 2mg 90tabs as Young Mittal M.D., 11/04/2016 d FAC, [facility] Metoprolol Tartrate 08/28/2012 Hx Tablets 50mg 270tabs /2 tabs Young Mittal M.D., 03/05/2013 mouth FACC, FASNC twice a day Furosemide 06/16/2012 Hx Tablets 20mg 30tabs 1 by Yougn Dunlap - aron Mittal M.D., 11/05/2016 every FACC, FASNC morning Lisinopril 06/15/2012 Hx Tablets 5mg 30tabs 1 tab Young Dunlap - by Addison Mittal, 08/02/2014 mouth FACC, FASNC every day Hydrocodone/Acetami Hx Tablets 5-325mg 40tabs 1 tab Unknown nophen - po qid 08/02/2014 prn Vitamin D3 Hx Capsules 2000Unit 1 by Unknown - mouth 01/22/2016 every day Vitamin B-12 Hx Tablets 1000mcg 1 by Unknown - mouth 12/22/2015 every day Hydrocodone-Acetami Hx Tablets 5-325mg 60tabs 1 by Lelandmat kc - mouth [place], 07/25/2016 twice M.D. [...] Omeprazole Hx Capsules DR 20mg 60caps take Douglas - matthew Damon, 01/01/2018 capsule M.D. by mouth twice a [...] SIG Indications Ordering Provider Inj, Administered Injection Youngdelphine Dunlap Regadenoson, 018 Mittal, 0.1 MG M.DGrant, FACC, FASNC Technetium TC Administered Injection Young Dunlap 99M 018 Mittal, Tetrofosmkecia, Addison, FACC, Per Unit Dose FASNC Up To 40 Millicuries Inj, Administered Injection Joey D. Regadenoson, 013 Addison Bull 0.1 MG Technetium TC Administered Injection Joey DGrant 99M 013 Addison Bull Tetrofosmin, Per Unit Dose Up To 40 Millicuries Immunizations CPT Code Status Date Vaccine Reaction Lot # [id number] Given 05/21/2017 Influenza Virus Vaccine, [id number] Quadrivalent, Split, Preservative Free [id number] Given 05/21/2017 Pneumococcal Conjugate [id number] Vaccine 13 Valent For Intramuscular Use [id number] Given 08/07/2016 Zoster (Zostavax) no immediate reaction [id number] noted ... hh Vital Signs Date Vital [...] Result H/L Range Note Laboratory test 11/06/2018 [facility] Blood Culture SEE RESULT [address] [place] [address] [phone] Urinalysis 11/06/2018 [facility] Urine Color Lamar Profile [address] [place] [address] [phone] Urine Appearance Cloudy Urine Specific Cope 1.021 N 1.010-1.030 Urine pH 6.0 N [...] Cell Present Abnormal Absent Laboratory test 11/06/2018 [facility] Troponin-I (TnI) 0.01 ng/ mL <0.04 [address] [place] [address] [phone] Comp Metabolic 11/06/2018 [facility] Sodium 137 mmol/L N 135- [address] [place] [address] [phone] Potassium 4.3 mmol/L N 3.5-5.0 Chloride 102 [...] >60 Egfr 50.8 >60 3 Inr/Protime 11/06/2018 [facility] Inr 1.10 High 0.77-1.[address] [place] [address] [phone] Laboratory test 11/06/2018 [facility] Lactic Acid 0.5 N 0.5- 2.0 [address] mmol/[place] [address] [phone] CBC Auto Diff 11/06/2018 [facility] White Blood 16.4 High 3.5- 10.[address] Count 10^3/[place] [address] [phone] Red Blood Count 4.21 10^6/uL N 3.70-4.87 [...] Cells % 0 Urine Culture And 11/06/2018 [facility] Urine SEE RESULT [address] [place] [address] [phone] Poc Urinalysis 07/31/2018 [facility] Poc Glucose, Negative Negative [address] [place] [address] [phone] Poc Bilirubin, Urine Negative Negative Poc Ketone, Urine Trace Abnormal Negative Poc Specific Cope, Urine 1.020 N 1.010-1.030 Poc Blood, Urine Negative Negative Poc pH, Urine 6.0 N 5-9 Poc Protein, Urine Trace Abnormal Negative Poc Urobilinogen, Urine 0.2 Negative Poc Nitrite, Urine Negative Negative Poc Leukocytes, Urine Negative Negative Poc Color, Urine Lamar Poc Clarity, Urine Slightly Cloudy 6 Laboratory test 12/26/2017 [facility] Surgical Interface SEE RESULT [address] [place] [address] [phone] Inr/Protime 12/24/2017 [facility] Inr 0.90 N 0.[address] -1.0 [place] [address] 2 [phone] Lipid Profile 10/22/2017 [facility] Triglycerides 127 mg/dL 8, 9 (Trig/Chol/HDL) [address] [place] [address] [phone] Cholesterol 151 mg/dL 10 HDL Cholesterol 64.3 mg/dL 11 LDL Cholesterol 61 mg/dL 12 Laboratory test 09/06/2017 [facility] Lactic Acid 0.8 mmol/L N 0.5-2.0 [address] [place] [address] [phone] CBC Auto Diff 09/06/2017 [facility] White Blood 9.1 10^3/uL N 3.5-10.[address] [place] [address] [phone] Red Blood Count 3.57 10^6/uL Low 4.0-5.4 [...] Cells % 0 Comp Metabolic Panel 09/06/2017 [facility] Sodium 139 mmol/L N 133-[address] [place] [address] [phone] Potassium 3.9 mmol/L N 3.5-5.0 Chloride 102 [...] Egfr 73.0 >60 14 Laboratory test 09/06/2017 [facility] Magnesium 2.0 mg/dL N 1.9-2.7 finding [address] [place] [address] [phone] Troponin-I (TnI) 0.02 ng/mL <0.04 B-Type Natriuretic Peptide BNP 512 pg/mL High 15 Inr/Protime 09/06/2017 [facility] Inr 0.98 N 0.77-1.[address] [place] [address] [phone] Laboratory test 09/06/2017 [facility] Partial 29.7 seconds N 26.0-36.[address] [place] [address] PTT [phone] Basic Metabolic 07/12/2017 [facility] Sodium 141 mmol/L N 133- [address] [place] [address] [phone] Potassium 3.4 mmol/L Low 3.5-5.0 Chloride 102 mmol/L N 101-111 Co2 Carbon Dioxide 30 mmol/L N 22-32 Anion Gap 9 mmol/L N 2-11 Glucose 121 mg/dL High 70-100 Blood Urea Nitrogen 24 mg/dL N 6-24 Creatinine 0.89 mg/dL N 0.51-0.95 BUN/Creatinine Ratio 27.0 High 8-20 Calcium 9.2 mg/dL N 8.6-10.3 Egfr Non- 61.2 >60 Egfr 78.7 >60 16 Laboratory test 07/12/2017 [facility] Magnesium 1.5 mg/dL Low 1.9-2.[address] [place] [address] [phone] Inr/Protime 07/12/2017 [facility] Inr 0.99 N 0.89-1.[address] [place] [address] [phone] Urinalysis 06/16/2017 [facility] Urine Color Yellow N Profile [address] [place] [address] [phone] Urine Appearance Clear N Urine Specific Cope 1.013 N 1.010-1.030 Urine pH 6.0 N [...] Present Abnormal Absent Urine Culture And 06/16/2017 [facility] Urine Culture SEE RESULT [address] [place] [address] [phone] CBC Auto Diff 06/15/2017 [facility] White Blood 6.9 10^3/uL N 3.5-[address] Count 0.8 [place] [address] [phone] Red Blood Count 3.71 10^6/uL Low 4.0-5.4 [...] Blood Cells % 0 N Inr/Protime 06/15/2017 [facility] Inr 0.98 N 0.89-1.[address] [place] [address] [phone] Laboratory test 06/15/2017 [facility] Partial 26.6 seconds N 26.0-36.[address] [place] [address] PTT [phone] Comp Metabolic 06/15/2017 [facility] Sodium 140 mmol/L N 133- [address] [place] [address] [phone] Potassium 2.8 mmol/L Low 3.5-5.0 Chloride 102 [...] N >60 18 Type & Screen 06/15/2017 [facility] Patient Blood Type O Positive N [address] [place] [address] [phone] Antibody Screen NEGATIVE N Inr/Protime 05/12/2017 [facility] Inr 0.91 N 0.89-1.[address] [place] [address] [phone] Laboratory test 05/12/2017 [facility] Partial 27.0 seconds N 26.0-36.[address] [place] [address] PTT [phone] Lactic Acid 1.1 mmol/L N 0.5-2.0 19 CBC Auto Diff 05/12/2017 [facility] White Blood 8.7 10^3/uL N 3.5-10.8 [address] [place] [address] [phone] Red Blood Count 4.08 10^6/uL N 4.0-5.4 [...] % 0 N Comp Metabolic Panel 05/12/2017 [facility] Sodium 140 mmol/L N 133-[address] [place] [address] [phone] Potassium 3.0 mmol/L Low 3.5-5.0 Chloride 104 [...] 75.7 N >60 20 Laboratory test 05/12/2017 [facility] Magnesium 2.0 mg/dL N 1.9-2.7 finding [address] [place] [address] [phone] Troponin-I (TnI) 0.00 ng/mL N <0.04 TSH (Thyroid Stim Horm) 0.68 mcIU/mL N 0.34-5.60 Laboratory test 03/12/2017 [facility] Lactic Acid 0.8 mmol/L N 0.5-2.0 [address] [place] [address] [phone] CBC Auto Diff 03/12/2017 [facility] White Blood 11.4 High 3.5- 10.[address] Count 10^3/[place] [address] [phone] Red Blood Count 4.12 10^6/uL N 4.0-5.4 [...] % 0 N Comp Metabolic Panel 03/12/2017 [facility] Sodium 138 mmol/L N 133-145 [address] [place] [address] [phone] Potassium 3.9 mmol/L N 3.5-5.0 Chloride 104 [...] 76.7 N >60 22 Lipid Profile 03/12/2017 [facility] Triglycerides 98 mg/dL N 23 (Trig/Chol/HDL) [address] [place] [address] [phone] Cholesterol 185 mg/dL N 24 HDL Cholesterol 59.0 mg/dL N 25 LDL Cholesterol 106 mg/dL N 26 Laboratory test 03/12/2017 [facility] Troponin-I 0.01 ng/mL N <0.04 finding 101 (TnI) [place] [address] [phone] Inr/Protime 03/12/2017 [facility] Inr 0.94 N 0.89-1.11 [place] [address] [phone] Laboratory test 03/12/2017 [facility] Partial 24.9 Low 26.0- 36.[address] [place] [address] PTT [phone] Urinalysis 03/12/2017 [facility] Urine Color [place] [address] [phone] Urine Appearance Cloudy N Urine Specific Cope 1.010 N 1.010-1.030 Urine pH 7.0 N [...] Present Abnormal Absent Type & Screen 03/12/2017 [facility] Patient Blood Type O Positive N [address] [place] [address] [phone] Antibody Screen NEGATIVE N Laboratory test 03/12/2017 [facility] TSH (Thyroid 0.61 mcIU/mL N 0.34-5.[address] Stim Horm) [place] [address] [phone] Basic Metabolic 12/31/2016 [facility] Sodium 137 mmol/L N 133- 145 [place] [address] [phone] Potassium 4.4 mmol/L N 3.5-5.0 Chloride 104 [...] N >60 27 CBC Auto Diff 12/31/2016 [facility] White Blood 7.6 10^3/uL N 3.5-10.[address] [place] [address] [phone] Red Blood Count 3.55 10^6/uL Low 4.0-5.4 [...] % 0 N CBC Auto Diff 11/20/2016 [facility] White Blood 10.7 10^3/uL N 3.5-10.[address] [place] [address] [phone] Red Blood Count 3.03 10^6/uL Low 4.0-5.4 [...] Cells % 0 N Laboratory test 10/24/2016 [facility] Surgical SEE RESULT [address] [place] [address] [phone] CBC Auto Diff 10/23/2016 [facility] White Blood 9.8 10^3/uL N 3.5-[address] Count .8 [place] [address] [phone] Red Blood Count 2.54 10^6/uL Low 4.0-5.4 [...] Blood Cells % 0 N Inr/Protime 10/23/2016 [facility] Inr 4.03 High 0.89-1.[address] [place] [address] [phone] Laboratory test 10/23/2016 [facility] Lactic Acid 0.7 N 0.5- 2.0 [address] mmol/[place] [address] [phone] Comp Metabolic 10/23/2016 [facility] Sodium 136 N 133-[address] mmol/[place] [address] [phone] Potassium 4.1 mmol/L N 3.5-5.0 Chloride 104 [...] 28.2 N >60 30 Laboratory test 10/23/2016 [facility] Magnesium 2.4 mg/dL N 1.9-2.[address] [place] [address] [phone] Troponin-I (TnI) 0.01 ng/mL N <0.04 31 TSH (Thyroid Stim Horm) 0.35 mcIU/mL N 0.34-5.60 Urinalysis Profile 10/23/2016 [facility] Urine Color Yellow N [address] [place] [address] [phone] Urine Appearance Clear N Urine Specific Cope 1.011 N 1.010-1.030 Urine pH 5.0 N [...] Present Abnormal Absent Urine Culture And 10/23/2016 [facility] Urine SEE RESULT [address] Culture BELOW [place], [place] [address] [phone] Inr/Protime 10/07/2016 [facility] Inr 2.99 High 0.89- [address] 1[address]11 [place] [address] [phone] Inr/Protime 09/25/2016 [facility] Inr 3.98 High 0.89- [address] 1.11 [place], [place] [address]12 [phone] Inr/Protime 09/19/2016 [facility] Inr 3.51 High 0.89- [address] 1[address]11 [place] [address] [phone] Inr/Protime 08/16/2016 [facility] Inr 2.85 High 0.89- [address] 1[address]11 [place] [address] [phone] Comp Metabolic 08/16/2016 [facility] Sodium 138 mmol/L N 133- [address] [place] [address] [phone] Potassium 4.3 mmol/L N 3.5-5.0 Chloride 103 [...] 77.9 N >60 34 Lipid Profile 08/16/2016 [facility] Triglycerides 142 mg/dL N 35 (Trig/Chol/HDL) [address] [place] [address] [phone] Cholesterol 224 mg/dL N 36 HDL Cholesterol 55.5 mg/dL N 37 LDL Cholesterol 140 mg/dL N 38 Inr/Protime 07/23/2016 [facility] Inr 2.85 High 0.89-1.[address] [place] [address] [phone] Laboratory test 07/18/2016 [facility] Magnesium 2.3 N 1.9-2.7 39, 40 finding 101 mg/[place] [address] [phone] Basic Metabolic 07/18/2016 [facility] Sodium 137 N 133-145 Panel 101 mmol/[place] [address] [phone] Potassium 4.9 mmol/L N 3.5-5.0 Chloride 104 mmol/L N 101-111 Co2 Carbon Dioxide 27 mmol/L N 22-32 Anion Gap 6 mmol/L N 2-11 Glucose 102 mg/dL High 70-100 Blood Urea Nitrogen 33 mg/dL High 6-24 Creatinine 0.94 mg/dL N 0.51-0.95 BUN/Creatinine Ratio 35.1 High 8-20 Calcium 9.4 mg/dL N 8.6-10.3 Egfr Non- 57.6 N >60 Egfr 74.1 N >60 41 Inr/Protime 07/01/2016 [facility] Inr 1.91 High 0.89-1.[address] [place] [address] [phone] Laboratory test 07/01/2016 [facility] Magnesium 2.1 mg/dL N 1.9-2.[address] [place] [address] [phone] Basic Metabolic 07/01/2016 [facility] Sodium 138 N 133-[address] mmol/[place] [address] [phone] Potassium 4.3 mmol/L N 3.5-5.0 Chloride 102 mmol/L N 101-111 Co2 Carbon Dioxide 29 mmol/L N 22-32 Anion Gap 7 mmol/L N 2-11 Glucose 104 mg/dL High 70-100 Blood Urea Nitrogen 23 mg/dL N 6-24 Creatinine 0.94 mg/dL N 0.51-0.95 BUN/Creatinine Ratio 24.5 High 8-20 Calcium 9.2 mg/dL N 8.6-10.3 Egfr Non- 57.6 N >60 Egfr 74.1 N >60 43 Inr/Protime 06/21/2016 [facility] Inr 2.89 High 0.89-1.[address] [place] [address] [phone] Inr/Protime 06/13/2016 [facility] Inr 3.30 High 0.89-1.[address] [place] [address] [phone] Inr/Protime 06/07/2016 [facility] Inr 1.58 High 0.89-1.[address] [place], [place] [address] [phone] Inr/Protime 05/29/2016 [facility] Inr 1.61 High 0.89-1.[address] [place] [address] [phone] Laboratory test 05/07/2016 [facility] Surgical SEE RESULT [address] Pathology BELOW [place], [place] [address] [phone] Pre Cath Panel 05/03/2016 [facility] Partial 31.8 N 26.0-36.[address] [place] [address] PTT [phone] CBC Auto Diff 05/03/2016 [facility] White Blood 8.4 N 3.5- 10.[address] Count 10^3/uL [place], [place] [address] [phone] Red Blood Count 3.32 10^6/uL Low 4.0-5.4 [...] Blood Cells % 0 N Inr/Protime 05/03/2016 [facility] Inr 2.03 High 0.89-1.[address] [place] [address] [phone] Basic Metabolic 05/03/2016 [facility] Sodium 138 mmol/L N 133- 145 Panel [address] [place] [address] [phone] Potassium 4.7 mmol/L N 3.5-5.0 Chloride 105 [...] N >60 45 CBC Auto Diff 04/09/2016 [facility] White Blood 6.1 10^3/uL N 3.5-10.[address] [place] [address] [phone] Red Blood Count 3.53 10^6/uL Low 4.0-5.4 [...] % 0 N Comp Metabolic Panel 04/09/2016 [facility] Albumin 3.8 g/dL N 3.2-5.2 [address] [place] [address] [phone] Total Bilirubin 0.40 mg/dL N 0.2-1.0 Sodium [...] 56.4 N >60 46 Laboratory test 04/09/2016 [facility] Free T4 (Free 0.88 ng/dL N 0.61-1.12 finding 101 [facility] Thyroxine) [place] [address] [phone] TSH (Thyroid Stim Horm) 0.50 mcIU/mL N 0.34-5.60 Vitamin B12 411 pg/mL N 180-914 47 Inr/Protime 11/07/2015 [facility] Inr 2.32 High 0.89-1.11 101 [place] [address] [phone] Laboratory test 01/02/2015 [facility] Inr 1.58 High 0.78-1.07 finding 101 [place] [address] [phone] Laboratory test 06/02/2014 [facility] Vitamin B12 209 pg/mL N 180-917 48 finding 101 [place] [address] [phone] TSH (Thyroid Stimulating Horm) 0.44 IU/mL N 0.34-5.60 CRP High Sensitivity 13.43 mg/L N 49 Lipid Profile 06/02/2014 [facility] Triglycerides 144 mg/dL N 50 (Trig/Chol/HDL) [address] [place] [address] [phone] Cholesterol 165 mg/dL N 51 HDL Cholesterol 39.6 mg/dL N 52 LDL Cholesterol 97 mg/dL N 53 Comp Metabolic Panel 06/02/2014 [facility] Sodium 137 mmol/L N 133-145 [address] [place] [address] [phone] Potassium 4.6 mmol/L N 3.7-5.6 Chloride 101 [...] Egfr 71.8 N >60 54 Inr/Protime 06/02/2014 [facility] Inr 1.65 High 0.85-1.[address] [place] [address] [phone] CBC Auto Diff 06/02/2014 [facility] White Blood 8.0 N 4.8- 10.[address] Count 10^3/[place] [address] [phone] Red Blood Count 3.44 10^6/uL Low 4.0-5.4 [...] Cells % 0.1 N Laboratory test 03/28/2014 [facility] Inr 2.50 High 0.85-1.[address] [place] [address] [phone] Laboratory test 03/18/2014 [facility] Inr 1.42 High 0.85-1.[address] [place] [address] [phone] Laboratory test 02/24/2014 [facility] Inr 3.41 High 0.85-1.[address] [place] [address] [phone] Laboratory test 02/04/2014 [facility] Inr 1.99 High 0.85-1.[address] [place] [address] [phone] Laboratory test 01/20/2014 [facility] Inr 1.67 High 0.85-1.[address] [place] [address] [phone] Laboratory test 11/01/2013 [facility] Inr 2.34 High 0.85-1.[address] [place] [address] [phone] Inr/Protime 10/04/2013 Inr 3.57 High 0.85-1.06 Laboratory test 07/29/2013 [facility] Inr 1.95 High 0.85-1.[address] [place] [address] [phone] Laboratory test 07/22/2013 [facility] C Reactive < 0.5 Less than 0.[address] [place] [address] Protein mg/[place] [address] [phone] Erythrocyte Sed Rate 15 mm/Hr 0-40 Jolly (Anti-Nuclear AB) Screen Negative Negative 56 Rheumatoid Factor <15 IU/mL <15 57 Laboratory test 07/22/2013 [facility] Inr 4.62 High 0.85-1.[address] [place] [address] [phone] Laboratory test 06/02/2013 [facility] Inr 3.08 High 0.87-0.[address] [place] [address] [phone] Basic Metabolic 06/02/2013 [facility] Sodium 138 mmol/L 133- [address] [place] [address] [phone] Potassium 4.4 mmol/L 3.5-5.0 Chloride 104 mmol/L 101-111 Co2 Carbon Dioxide 27.0 mmol/L 22-32 Anion Gap 7.0 mmol/L 2-11 Glucose 88 mg/dL 70-100 Blood Urea Nitrogen 17 mg/dL 6-24 Creatinine 1.00 mg/dL 0.50-1.40 BUN/Creatinine Ratio 17.0 8-20 Calcium 9.2 mg/dL 8.1-9.9 Egfr Non- 54.1 >60 Egfr 69.5 >60 59 Laboratory test 06/02/2013 [facility] Magnesium 2.3 mg/dL 1.7 -2.6 finding 101 [place] [address] [phone] Laboratory test 04/07/2013 [facility] Inr 2.42 High 0.87-0.[address] [place] [address] [phone] Laboratory test 03/29/2013 [facility] Inr 1.66 High 0.87-0.[address] [place] [address] [phone] Laboratory test 03/22/2013 [facility] Inr 1.79 High 0.87-0.[address] [place] [address] [phone] Basic Metabolic 01/06/2013 [facility] Sodium 142 mmol/L 133- 145 Panel [address] [place] [address] [phone] Potassium 3.8 mmol/L 3.5-5.0 Chloride 109 mmol/L 101-111 Co2 Carbon Dioxide 26.0 mmol/L 22-32 Anion Gap 7.0 mmol/L 2-11 Glucose 119 mg/dL High 70-100 Blood Urea Nitrogen 15 mg/dL 6-24 Creatinine 1.00 mg/dL 0.50-1.40 BUN/Creatinine Ratio 15.0 8-20 Calcium 9.2 mg/dL 8.1-9.9 Egfr Non- 54.2 >60 Egfr 69.7 >60 60 Laboratory test 01/06/2013 [facility] Magnesium 2.1 mg/dL 1.7 -2.[address] [place] [address] [phone] Inr/Protime 01/06/2013 [facility] Inr 2.24 High 0.87-0.[address] [place] [address] [phone] Laboratory test 08/21/2012 [facility] Inr 3.56 High 0.82-1.[address] [place] [address] [phone] Laboratory test 05/28/2012 [facility] Magnesium 2.5 mg/dL 1.7 -2.[address] [place] [address] [phone] Basic Metabolic 05/28/2012 [facility] Sodium 138 mmol/L 133- [address] [place] [address] [phone] Potassium 4.2 mmol/L 3.5-5.0 Chloride 110 mmol/L 101-111 Co2 Carbon Dioxide 26.0 mmol/L 22-32 Anion Gap 2.0 mmol/L 2-11 Glucose 100 mg/dL 70-100 Blood Urea Nitrogen 17 mg/dL 6-24 Creatinine 0.90 mg/dL 0.50-1.40 BUN/Creatinine Ratio 18.9 8-20 Calcium 9.1 mg/dL 8.1-9.9 Egfr Non- 61.2 >60 Egfr 78.7 >60 62 Laboratory test finding 05/28/2012 [facility] Inr 2.06 High 0.82-1.[address] [place] [address] [phone] 1 SEE RESULT BELOW Name: LIUDMILA PHELAN : [address]: Aniceto Espinosa MD Acct: [id number] Unit: [id number] AGE: 78 Location: ED Re11/06/18 SEX: F Status: DEP ER SPEC: [id number] NATE: 11/07/[address] [facility] [address]: Alberto Brito MD REQ: [id number] RECD: 11/07/18 STATUS: INDIO TRACY DR: Aniceto Damon MD _ SOURCE: BLOOD,[facility] ORDERED: Blood Cult Procedure Result Reported Site Aerobic Culture Bottle Final 11/12/1832 ML No Growth Day 5 Anaerobic Culture Bottle Final 11/12/1832 ML No Growth Day 5 * ML - Main Lab . END OF REPORT DEPARTMENT OF PATHOLOGY, [address] [place] [address] Enrrique Roberts M.D. Director [facility] # [id number] 2 Troponin-I testing on Plasma Separator Tubes [...] 5 Kidney failure <15 (or dialysis) 4 [facility] Severe Sepsis and Septic Shock Management Bundle Measure requires all lactic acids initially measuring >2.0 mmol/L be repeated. 5 SEE RESULT BELOW Name: LIUDMILA PHELAN : [address]: Aniceto Espinosa MD Acct: [id number] Unit: [id number] AGE: 78 Location: ED Re11/06/18 SEX: F Status: DEP ER SPEC: [id number] NATE: 11/06/18-[address] [facility] [address]: Aniceto Espinosa MD REQ: [id number] RECD: 11/06/18 STATUS: INDIO TRACY DR: Douglas Damon MD _ SOURCE: URINE SPDESC: ORDERED: Urine Culture Procedure Result Reported Site Urine Culture Final 11/08/18- 1144 ML Organism 1 ESCHERICHIA COLI Steele Count 25-50,000 (Moderate) CFU/ML Organism 2 NORMAL TIMOTHY Steele Count 1-10,000 (Few) CFU/ML 1. ESCHERICHIA COLI [...] . END OF REPORT DEPARTMENT OF PATHOLOGY, [address] [place] [address] Enrrique Roberts M.D. Director [facility] # [id number] [employer] Server: [id number] 7 SEE RESULT BELOW Name: ALESSANDRALENOLIUDMILA : [address]: Jayme Guzman MD Acct: [id number] Unit: [id number] AGE: 77 Location: [place] [address] Re12/25/17 Dis: 12/27/17 SEX: F Status: DIS IN SPEC: [id number] NATE: 12/26/17- SUBM DR: Bibiana Andrews DO REQ: [id number] RECD: 12/26/17 STATUS: BLAKE TRACY DR: Jayne [...] CONTINUED ON NEXT PAGE DEPARTMENT OF PATHOLOGY, [address] [place] [address] Enrrique Roberts M.D. Director [facility] # [id number] RUN DATE: 12/30/17 [facility] LAB LIVE PAGE 2 Patient: LIUDMILA PHELAN [id number] (Continued) GROSS DESCRIPTION (Continued) Signed by and Reported on: Anali Malone MD 12/30/17 1131 END OF REPORT DEPARTMENT OF PATHOLOGY, [address] [place] [address] Enrrique Roberts M.D. Director [facility] # [id number] 8 FASTING 10 HOUR 9 Desirable: <150 Borderline High: 150-199 High: 200-499 Very High: >500 10 Desirable: <200 Borderline High: 200-239 High: >239 11 Low: <40 Desirable: 40-60 High: >60 12 Desirable: <100 Near Optimal: 100-129 Borderline High: 130-159 High: 160-189 Very High: >189 13 [facility] Severe Sepsis and Septic Shock [...] (or dialysis) 17 SEE RESULT BELOW Name: RAKESHLIUDMILA Almaguer : [address]: Vish Clement MD Acct: [id number] Unit: [id number] AGE: 77 Location: ED Re06/15/17 SEX: F Status: REG ER SPEC: [id number] NATE: 06/16/[address]: Vish Clement MD REQ: [id number] RECD: 06/16/17 STATUS: COMP SAMI DR: Douglas Damon MD _ SOURCE: URINE SPDESC: ORDERED: Urine Culture Procedure Result Reported Site Urine Culture Final 06/17/17- 0839 ML No growth of clinically significant organisms * ML - MAIN LAB ([facility]) . END OF REPORT * ML=Testing performed at Main Lab DEPARTMENT OF PATHOLOGY, [address] [place] [address] Enrrique Roberts M.D. Director [facility] # [id number] 18 Because ethnic data is not always [...] 5 Kidney failure <15 (or dialysis) 19 [facility] Severe Sepsis and Septic Shock [...] 5 Kidney failure <15 (or dialysis) 21 [facility] Severe Sepsis and Septic Shock [...] [address]: Barbi Goff MD Acct: [id number] Unit: [id number] AGE: 76 Location: [place] [address] Re10/24/16 SEX: F Status: ADM IN SPEC: [id number] NATE: 10/24/16-[address] [facility] [address]: Venkata Bearden MD REQ: [id number] RECD: 10/24/16395 STATUS: BLAKE TRACY DR: Dagoberto Damon MD [...] performed at Main Lab DEPARTMENT OF PATHOLOGY, [address] [place] [address] Enrrique Roberts M.D. Director [facility] # [id number] 29 [facility] Severe Sepsis and Septic Shock [...] 31 99th percentile=0.04 ng/mL Troponin results at [facility] and [facility] are not interchangeable. 32 SEE RESULT BELOW Name: LIUDMILA PHELAN : [address]: Singh Arvizu MD Acct: [id number] Unit: [id number] AGE: 76 Location: [place] [address] Re10/24/16 SEX: F Status: ADM IN SPEC: [id number] NATE: 10/23/16-[address] [facility] [address]: Aniceto Espinosa MD REQ: [id number] RECD: 10/23/16 STATUS: INDIO TRACY DR: Douglas Damon MD _ S[facility]: [facility]: ORDERED: Urine Culture Procedure Result Reported Site Urine Culture Final 10/25/16- 08 ML Organism 1 PROTEUS MIRABILIS Steele Count 10-25,000 (Moderate) CFU/ML 1. PROTEUS MIRABILIS [...] antibiotic reporting. * ML - MAIN LAB ([facility]) . END OF REPORT * ML=Testing performed at Main Lab DEPARTMENT OF PATHOLOGY, [address] [place] [address] Enrrique Roberts M.D. Director [facility] # [id number] 33 STANDING ORDER ENTERED 05/25/16 EXPIRES 11/12/16 [...] mg/dL 39 ORDERED 06/27/16 EXPIRES 12/25/16 CC: NELSON 40 ORDERED 06/27/16 EXPIRES 12/25/16 CC: NELSON 41 Because ethnic data is not always [...] [address]: Joey Bull MD Acct: [id number] Unit: [id number] AGE: 76 Location: [facility] Re05/07/16 SEX: F Status: REG REF SPEC: [id number] NATE: 05/07/[address] [facility] [address]: Joey Bull MD REQ: [id number] RECD: 05/07/16 STATUS: SOUT _ ORDERED: LEVEL I FINAL DIAGNOSIS Pacemaker generator: Foreign body (pacemaker generator) (Gross diagnosis). PRE-OPERATIVE DIAGNOSIS Sick sinus syndrome, E.R.I. GROSS DESCRIPTION The specimen is received fresh with no source identified, and consists of a 4.7 x 4.5 x 0.6 cm silver metallic medical device assembler. The following inscription is identified: [employer] Sensia [id number] DDDR SN [id number] [facility]. Per established hospital medical staff protocol, no tissue is submitted. Gross only. Signed (signature on file) Anali Malone MD 1046 END OF REPORT * ML=Testing performed at Main Lab DEPARTMENT OF PATHOLOGY, [address] [place] [address] Enrrique Roberts M.D. Director [facility] # [id number] 45 Because ethnic data is not always [...] range effective 13. 56 @Sample frozen by [email or web address] at 1056 on 07/22/13. 57 Test Performed by: [place] [address] Open Source Developer: Carmine Loomis III, M.D. 58 Please note [...] - 3.5 Procedures Date Code Description Status 07/27/2018 49575 Stress Test Completed 07/27/2018 86668 Myocardial Perfusion Imaging Tomographic (Spect) Completed Multiple Studies 05/26/2018 52436 Pace Maker Eval W/Iterative Adjment Dual Lead Completed 05/26/2018 65953 Pace Maker Eval W/Iterative Adjment Dual Lead Completed 05/09/2018 92400 EKG, Interpretation Only Completed 05/08/2018 30183 EKG Tracing & Interpretation Completed 05/01/2018 706563917 Diabetic Retinal Eye Exam Completed 04/06/2018 74165 EKG Tracing & Interpretation Completed 01/01/2018 14141 Remove Impacted Cerumen Completed 12/26/2017 05105 Endoscopy Upper GI Biopsy Completed 12/10/2017 93869 Pace Maker Eval W/Iterative Adjment Dual Lead Completed 12/10/2017 31654 Pace Maker Eval W/Iterative Adjment Dual Lead Completed 09/16/2017 07216 EKG Tracing & Interpretation Completed 09/08/2017 12162 Treadmill Interp/Report Only Completed 09/08/2017 99309 Stress Test Supervsn W/Out I/R Completed 07/11/2017 34193 Holter Monitor Review (24 hr)dr review & interp only Completed 07/08/2017 03890 ECG Monitor/Recording W/Visual Superimposition Completed Scanning 05/05/2017 07900 EKG Tracing & Interpretation Completed 03/27/2017 29121 EKG, Interpretation Only Completed 03/14/2017 59323 Interrogation Device Eval In Person W/DR Completed Analysis,Single,Dual,Mul 03/12/2017 71715 EEG Recording Awake & Drowsy Completed 03/12/2017 66332 ECHO Transthorasic Realtime 2D W Doppler & Color Flow Completed Hosp 12/02/2016 03964 Pace Maker Eval W/Iterative Adjment Dual Lead Completed 11/20/2016 34317 Inhalation TX For Acute Airway Obstruction Completed W/Nebulizer/Inhaler 11/06/2016 01234 EKG Tracing & Interpretation Completed 10/28/2016 69585 Treadmill Interp/Report Only Completed 10/28/2016 54607 Stress Test Supervsn W/Out I/R Completed 10/27/2016 14055 EKG, Interpretation Only Completed 10/23/2016 85386 ECHO Transthorasic Realtime 2D W Doppler & Color Flow Completed Hosp 06/04/2016 34313 Pace Maker Eval W/Iterative Adjment Dual Lead Completed 05/07/2016 41410 Removal With Replacement Dual Lead System Pulse Completed Generator 05/01/2016 85828 Interrogation Device Eval In Person W/ Completed Analysis,Single,Dual,Mul 04/19/2016 00827 Pace Maker Eval W/Iterative Adjment Dual Lead Completed 02/21/2016 89233 EKG Tracing & Interpretation Completed 02/09/2016 71978 Interrogation Device Eval In Person W/ Completed Analysis,Single,Dual,Mul 11/09/2015 36485 Interrogation Device Eval In Person W/DR Completed Analysis,Single,Dual,Mul 08/16/2015 92483 Pace Maker Eval W/Iterative Adjment Dual Lead Completed 03/14/2015 23844 EKG Tracing & Interpretation Completed 03/08/2015 13361 Interrogation Device Eval In Person W/ Completed Analysis,Single,Dual,Mul 12/27/2014 35767 Interrogation Device Eval In Person W/ Completed Analysis,Single,Dual,Mul 08/03/2014 43060 EKG Tracing & Interpretation Completed 06/08/2014 44164 Pace Maker Eval W/Iterative Adjment Dual Lead Completed 11/18/2013 54006 Pace Maker Eval W/Iterative Adjment Dual Lead Completed 09/08/2013 97010073 Mammogram Completed 05/25/2013 59729 Cardiac Event Monitor Completed 04/23/2013 45695 EKG Tracing & Interpretation Completed 04/22/2013 29305 Pace Maker Eval W/Iterative Adjment Dual Lead Completed 11/09/2012 19123 Pace Maker Eval W/Iterative Adjment Dual Lead Completed 11/06/2012 40967 Myocardial Perfusion Imaging Tomographic (Spect) Completed Multiple Studies 11/06/2012 96321 Stress Test Completed 08/28/2012 19667 EKG Tracing & Interpretation Completed 08/26/2012 93825 Pace Maker Eval W/Iterative Adjment Dual Lead Completed Encounters Type Date Location Provider Dx Diagnosis Office Visit 09/24/2018 [facility] Internal Yisel Scales MD S22.009D Unsp fx unsp thor 10:40a Medicine - vertebra, subs [place] for fx w routn heal 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 disease I48.2 Chronic atrial fibrillation R26.81 Unsteadiness on feet Z91.81 History of falling Z79.01 longterm (current) use of anticoagulants Office Visit 09/08/2018 1:15p [facility] Young Dunlap R07.9 Chest pain, Of Christin Mittal M.D., unspecified FACC, FASNC Office Visit 08/26/2018 11:20a [facility] Internal Yisel Yordy, I10 Essential ( primary) Medicine - MD hypertension [place] S22.009D Unsp fx unsp thor vertebra, subs for fx w routn heal Office Visit 08/04/2018 2:30p [facility] Internal Yisel Yordy, S22.089D Unsp fracture of Medicine T11-T12 vertebra, subs for fx w routn heal I10 Essential (primary) hypertension Office Visit 07/24/2018 [facility] Internal Eva Urena, 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 hypertension R60.0 Localized edema Office Visit 05/29/2018 10:00a [facility] Aamir Ross, G20 [facility]in Jaime disease I48.2 Chronic atrial fibrillation I10 Essential (primary) hypertension R26.81 Unsteadiness on feet Office Visit 05/09/2018 4:12p [facility] Gustavo Lopes R07.9 Chest pain, Addison Izquierdo unspecified I48.91 Unspecified atrial fibrillation Office Visit 05/09/2018 [facility] Barbi Goff R07.9 Chest pain, 11:05a Asselroy morrison M.D. 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 Barbi Goff I63.9 Cerebral 11:04a Asselroy morrison M.D. infarction, Hospitalists unspecified I48.91 Unspecified atrial fibrillation R07.9 Chest pain, unspecified G20 Parkinson's disease Office Visit 05/06/2018 4:00p [facility] Internal Eva Urena, I10 Essential ( primary) Medicine N.P. hypertension R07.89 Other chest pain H91.93 Unspecified hearing loss, bilateral R60.0 Localized edema Office Visit 04/06/2018 [facility] Youngdelphine Mittal, I48.2 Chronic atrial 1:00p Cardiology Of [place], FACC, FASNC fibrillation [facility] Office Visit 03/27/2018 Nella Ross, G20 Parkinson's 10:15a Neurologic M.D. 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 Jayme I63.40 Cerebral Assoc,elroy Guzman M.D. infarction due Hospitalists to embolism of unsp cerebral artery I10 Essential (primary) hypertension R42 Dizziness and giddiness I48.91 Unspecified atrial fibrillation Office Visit 12/26/2017 1:54p [facility] Jayne I63.40 Cerebral Assoc,elroy Barger M.D. infarction due Hospitalists to embolism of unsp cerebral artery I10 Essential (primary) hypertension R42 Dizziness and giddiness I48.91 Unspecified atrial fibrillation Office Visit 12/25/2017 7:00a [facility]enter[facility] Dafne Alex, Z87.11 Personal MD history of peptic ulcer disease G45.9 Transient cerebral ischemic attack, unspecified K92.2 Gastrointestinal hemorrhage, unspecified Office Visit 12/25/2017 1:54p [facility] Jayne I63.40 Cerebral Assoc,elroy Barger M.D. infarction due Hospitalists to embolism of unsp cerebral artery I10 Essential (primary) hypertension Office Visit 12/25/2017 [facility] Steve Shepherd G45.9 Transient 2:16p Clinic Addison Baker cerebral ischemic attack, unspecified I48.2 Chronic atrial fibrillation Office Visit 12/24/2017 [facility] R20.2 Paresthesia of 1:53p Assoc,elroy Tamayo, MATTHIEU skin Hospitalists R42 Dizziness and giddiness I10 Essential (primary) hypertension I48.91 Unspecified atrial fibrillation Office Visit 12/24/2017 [facility] Steve Shepherd G45.9 Transient 2:13p Clinic Addison Baker cerebral ischemic attack, unspecified I10 Essential (primary) hypertension I48.2 Chronic atrial fibrillation G20 Parkinson's disease Office Visit 12/22/2017 9:30a [facility] [facility] Aamir Ross, G20 [facility] Addison disease I48.91 Unspecified atrial fibrillation I49.5 Sick sinus syndrome Z95.0 Presence of cardiac pacemaker Z86.73 Prsnl hx of TIA (TIA), and cereb infrc w/o resid deficits Office Visit 12/10/2017 11:00a [facility] Internal Douglas Damon, I10 Essential (primary) Medicine M.DGrant hypertension I48.2 Chronic atrial fibrillation M25.511 Pain in right shoulder I95.1 Orthostatic hypotension Office Visit 10/15/2017 10:00a [facility] Internal Douglas Damon, I10 Essential (primary) Medicine M.DGrant hypertension R26.81 Unsteadiness on feet I48.2 Chronic atrial fibrillation E78.2 Mixed hyperlipidemia M25.511 Pain in right shoulder Office Visit 09/16/2017 1:45p [facility] Young Dunlap R07.89 Other chest pain Of Christin Mittal M.D., FACC, FASNC Office Visit 09/12/2017 2:40p [facility] Internal Chase Allen, I10 Essential Medicine [employer]USHER [employer] SHEARER (primary) hypertension R94.5 Abnormal results of liver function studies R07.89 Other chest pain Office Visit 09/08/2017 [facility] Rose Marie R07.9 Chest pain, 8:13a Assoc,elroy Tamayo, BR[employer]HER [employer] SHEARER unspecified Hospitalists G20 Parkinson's disease I48.91 Unspecified atrial fibrillation Z86.73 Prsnl hx of TIA (TIA), and cereb infrc w/o resid deficits Office Visit 09/07/2017 [facility] Ty Matuteenberg R07.9 Chest pain, 8:13a elroy Mullins II, M.D. unspecified Hospitalists G20 Parkinson's disease I48.91 Unspecified atrial fibrillation Z86.73 Prsnl hx of TIA (TIA), and cereb infrc w/o resid deficits Office Visit 08/27/2017 9:40a [facility] Internal Douglas L98.9 Disorder of the Medicine Addison Damon skin and subcutaneous tissue, unspecified R26.81 Unsteadiness on feet Office Visit 07/18/2017 [facility] Internal Douglas Z01.818 Encounter for other 1:40p Brigette Damon M.D. preprocedural [address] examination I10 Essential (primary) hypertension I48.2 Chronic atrial fibrillation G20 Parkinson's disease Office Visit 07/15/2017 2:45p [facility] Youngdelphine Dunlap I48.2 Chronic atrial Of Christin Mittal M.D., fibrillation FAC, ELIZABETH MASON [facility] H26.9 Unspecified cataract Z01.810 Encounter for preprocedural cardiovascular examination Office Visit 07/15/2017 3:00p [facility] Azalea MGrant G20 Parkinson's Services Of Christin Junior M.D. 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 Office Visit 07/02/2017 11:40a [facility] Douglas R26.9 Unspecified Medicine Addison Damon abnormalities of gait and mobility Office Visit 06/18/2017 11:20a [facility] [place] G45.9 Transient cerebral Medicine Addison Damon ischemic attack, unspecified R42 Dizziness and giddiness R29.6 Repeated falls Office Visit 05/21/2017 8:40a [facility] [place] Damon, I10 Essential (primary) Medicine Addison hypertension I63.9 Cerebral infarction, unspecified I95.2 Hypotension due to drugs Z23 Encounter for immunization Office Visit 05/05/2017 9:45a [facility] Youngdelphine Dunlap I48.0 Paroxysmal atrial Of Christin Mittal M.D., fibrillation FACC, FASSUNDAR Office Visit 04/22/2017 2:00p [facility] [place] I48.0 Paroxysmal atrial Medicine - [place] Pach[place], fibrillation Rd M.DGrant I10 Essential (primary) hypertension I63.9 Cerebral infarction, unspecified R07.89 Other chest pain R29.6 Repeated falls Office Visit 03/21/2017 Neurohospitalist Shirley I63.9 Cerebral 4:50p Clinic Addison Friedman infarction, unspecified I48.91 Unspecified atrial fibrillation Office Visit 03/20/2017 4:23p [facility] Barbi Goff, I63.20 Cereb infrc Assoc,pc M.D. due to unsp Hospitalists occls or stenos of unsp precerb art I10 Essential (primary) hypertension G20 Parkinson's disease I95.1 Orthostatic hypotension Office Visit 03/19/2017 4:23p [facility] Barbi Goff, I63.20 Cereb infrc Assoc,pc M.D. due to unsp Hospitalists occls or stenos of unsp precerb art I10 Essential (primary) hypertension G20 Parkinson's disease I95.1 Orthostatic hypotension Office Visit 03/17/2017 4:22p [facility] Barbi Goff, I63.20 Cereb infrc Assoc,pc M.D. due to unsp Hospitalists occls or stenos of unsp precerb art I10 Essential (primary) hypertension G20 Parkinson's disease I95.1 Orthostatic hypotension Office Visit 03/16/2017 [facility] Barbi Goff, I63.40 Cerebral 3:43p Assoc,pc M.D. infarction due Hospitalists to embolism of unsp cerebral artery I48.0 Paroxysmal atrial fibrillation I95.1 Orthostatic hypotension Office Visit 03/15/2017 [facility] Barbi Goff, I63.40 Cerebral 3:43p Assoc,pc M.D. infarction due Hospitalists to embolism of unsp cerebral artery I48.0 Paroxysmal atrial fibrillation I95.1 Orthostatic hypotension Office Visit 03/14/2017 9:06a [facility] Washington Shepherd R55 Syncope and Of Christin Tafoyano, DO FACC collapse I63.9 Cerebral infarction, unspecified Z95.0 Presence of cardiac pacemaker I49.5 Sick sinus syndrome Office Visit 03/14/2017 [facility] Barbi Shell, I63.40 Cerebral 3:42p Assocelroy M.D. infarction due Hospitalists to embolism of unsp cerebral artery I48.0 Paroxysmal atrial fibrillation I95.1 Orthostatic hypotension I47.2 Ventricular tachycardia Office Visit 03/13/2017 Neurohospitalist Steve Shepherd I63.40 Cerebral 2:31p Clinic Addison Baker infarction due to embolism of unsp cerebral artery I10 Essential (primary) hypertension I48.91 Unspecified atrial fibrillation Office Visit 03/13/2017 [facility] Barbi Goff, I63.40 Cerebral 3:42p Assocelroy M.D. infarction due Hospitalists to embolism of unsp cerebral artery I48.0 Paroxysmal atrial fibrillation I95.0 Idiopathic hypotension G20 Parkinson's disease Office Visit 03/12/2017 Neurohospitalist Steve Shepherd I63.40 Cerebral 2:31p Clinic Addison Baker infarction due to embolism of unsp cerebral artery I10 Essential (primary) hypertension I48.91 Unspecified atrial fibrillation R55 Syncope and collapse Office Visit 03/12/2017 3:41p [facility] Singh I63.40 Cerebral Assoc,pc MD Nolberto infarction due Hospitalists to embolism of unsp cerebral artery I48.0 Paroxysmal atrial fibrillation G20 Parkinson's disease I95.1 Orthostatic hypotension Office Visit 02/20/2017 11:45a [facility] Azalea M. G20 [facility] Of [facility]in Junior M.D. disease I95.1 Orthostatic hypotension Office Visit 02/03/2017 1:00p Shirin Dunlap I48.0 Paroxysmal atrial Cardiology Of Addison Mittal, fibrillation [facility] FACC, FASNC Office Visit 2017 9:20a [facility] Leland M51.16 Intervertebral disc Medicine Pachikara, disorders w M.D. radiculopathy, lumbar region I48.0 Paroxysmal atrial fibrillation Office Visit 12/25/2016 10:40a [facility] [place] Pachperri, K29.61 Other gastritis Medicine M.D. with bleeding M51.16 Intervertebral disc disorders w radiculopathy, lumbar region I48.0 Paroxysmal atrial fibrillation I12.9 Hypertensive chronic kidney disease w stg 1-4/unsp chr kdny N18.9 Chronic kidney disease, unspecified Office Visit 11/22/2016 10:00a [facility] Douglas Damon M.D. R05 Cough - [address] Rd Office Visit 11/20/2016 8:20a [facility] Medicine Douglas Damon M.D. R05 Cough D64.9 Anemia, unspecified I10 Essential (primary) hypertension Office Visit 11/13/2016 11:15a [facility] Azalea Banks I95.1 Orthostatic Services Of Christin Junior M.D. hypotension G20 Parkinson's disease Office Visit 11/13/2016 9:20a [facility] [place] Damon, I10 Essential (primary) Medicine Addison hypertension I95.1 Orthostatic hypotension I48.0 Paroxysmal atrial fibrillation K25.0 Acute gastric ulcer with hemorrhage J20.9 Acute bronchitis, unspecified Office Visit 11/06/2016 10:15a [facility] Young Dunlap I48.0 Paroxysmal atrial MittalAddison, fibrillation [facility] I49.5 Sick sinus syndrome Z95.0 Presence of cardiac pacemaker I47.2 Ventricular tachycardia R94.31 Abnormal electrocardiogram [ECG] [EKG] Office 11/01/2016 [facility] K92.2 Gastrointestinal Visit 1:21p Asselroy morrison NP hemorrhage, Hospitalists unspecified R55 Syncope and collapse D64.9 Anemia, unspecified G20 Parkinson's disease Office 10/31/2016 [facility] K92.2 Gastrointestinal Visit 1:20p elroy Mullins NP hemorrhage, Hospitalists unspecified R55 Syncope and collapse D64.9 Anemia, unspecified G20 Parkinson's disease Office Visit 10/30/2016 Neurohospitalist Nils I95.1 Orthostatic 2:53p Jose Alberto Basurto MD hypotension G20 Parkinson's disease Office 10/30/2016 [facility] K92.2 Gastrointestinal Visit 1:19p elroy Mullins NP hemorrhage, Hospitalists unspecified R55 Syncope and collapse D64.9 Anemia, unspecified G20 Parkinson's disease Office Visit 10/29/2016 [facility] K92.2 Gastrointestinal 1:19p Assocelroy NP hemorrhage, Hospitalists unspecified D64.9 Anemia, unspecified G20 Parkinson's disease R55 Syncope and collapse Office Visit 10/29/2016 Neurohospitalist Nils I95.1 Orthostatic 2:52p Clinic MD Sherine hypotension G20 Parkinson's disease Office Visit 10/28/2016 [facility] K92.2 Gastrointestinal 10:07a Assoc,pc Marie, [employer] hemorrhage, Hospitalists unspecified D64.9 Anemia, unspecified G20 Parkinson's disease R55 Syncope and collapse Office Visit 10/27/2016 [facility] K92.2 Gastrointestinal 10:06a Assoc,pc Marie, [employer] hemorrhage, Hospitalists unspecified D64.9 Anemia, unspecified G20 Parkinson's disease R55 Syncope and collapse Office Visit 10/27/2016 1:52p [facility] Gustavo Lopes I47.2 Ventricular Nell Izquierdo. tachycardia R55 Syncope and collapse Office Visit 10/26/2016 [facility] K92.2 Gastrointestinal 10:06a Assoc,pc Marie, [employer] hemorrhage, Hospitalists unspecified D64.9 Anemia, unspecified G20 Parkinson's disease R55 Syncope and collapse Office Visit 10/26/2016 1:53p [facility] Gustavo FGrant R55 Syncope and Addison Izquierdo collapse I48.0 Paroxysmal atrial fibrillation I47.2 Ventricular tachycardia Office Visit 10/25/2016 [facility] K92.2 Gastrointestinal 10:05a Assoc,pc Marie, [employer] hemorrhage, Hospitalists unspecified D64.9 Anemia, unspecified G20 Parkinson's disease R55 Syncope and collapse Office Visit 10/24/2016 [facility] K92.2 Gastrointestinal 10:05a Assoc,pc Marie, [employer] hemorrhage, Hospitalists unspecified D64.9 Anemia, unspecified G20 Parkinson's disease Office Visit 10/23/2016 [facility] Dafne Lord, K92.2 Gastrointestinal 10:04a Assoc,pc N.P. hemorrhage, Hospitalists unspecified D64.9 Anemia, unspecified G20 Parkinson's disease Office Visit 09/23/2016 3:00p [facility] Chase Alejandro, I10 Essential ( primary) Medicine [facility] [employer] hypertension S09.90xA Unspecified injury of head, initial encounter Office Visit 08/22/2016 1:45p [place] [facility] Christin Junior M.D. 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 G2Anders Parkinson's disease I48.0 Paroxysmal atrial fibrillation Office Visit 06/21/2016 9:30a [place] [facility]in Junior M.D. disease G25.81 Restless legs syndrome M54.5 Low back pain M79.661 Pain in right lower leg S80.811S Abrasion, right lower leg, sequela Office Visit 05/01/2016 11:00a [facility] Joey Longoria I49.5 Sick sinus Of hCristin Bull M.D. syndrome Z95.0 Presence of cardiac pacemaker Office Visit 04/09/2016 10:15a [place] [facility] Christin Junior M.D. disease G25.81 Restless legs syndrome R40.0 Somnolence Office Visit 02/21/2016 9:15a [facility] Youngdelphine Dunlap I48.0 Paroxysmal atrial Of Christin Mittal M.D., fibrillation [facility] Office Visit 10/19/2015 10:45a [place] Parkinson's disease Services Of Christin Junior M.D. G25.81 Restless legs syndrome Office Visit 06/15/2015 10:15a [place] [facility] Of Christin Junior M.D. disease G25.81 Restless legs syndrome R42 Dizziness and giddiness Office Visit 03/14/2015 1:45p [facility] Youngdelphine Dunlap 427.31 Atrial Of Christin Mittal M.D., Fibrillation [facility] Office Visit 02/09/2015 9:45a [facility] Azaleadaysi Banks 332.0 Paralysis Agitans Services Of Christin Junior M.D. 333.94 Restless Leg Syndrome 783.21 Loss Of Weight Office Visit 10/13/2014 10:15a [facility] Azalea Banks 332.0 Paralysis Services Of Christin Junior M.D. Agitans 333.94 Restless Leg Syndrome Office Visit 08/03/2014 1:45p [facility] Young Dunlap 427.31 Atrial Addison Mittal, Fibrillation [facility] Office Visit 06/28/2014 9:45a [facility] Azaleadaysi Banks 332.0 Paralysis [facility] Services Of Christin Junior M.D. 333.94 Restless Leg Syndrome Office Visit 08/26/2013 1:15p [facility] Azalea Banks 332.0 Paralysis Services Of Christin Junior M.D. Agitans 333.94 Restless Leg Syndrome 729.1 Myalgia & Myositis Unspec [facility] 785.1 Palpitations Of Christin Mittal M.D., [facility] Office Visit 07/09/2013 9:30a [facility] Azaleadaysi Banks 332.0 Paralysis [facility] Of Christin Junior M.D. 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 Office Visit 12/08/2012 11:30a [facility] Azalea Banks 332.0 Paralysis [facility]in [facility] M.D. Office Visit 11/16/2012 8:45a [facility] Kami Dunlap 414.9 Ischemic Heart Of Christin Mittal M.D., Disease Chronic [facility], [facility] Unspec Office Visit 10/12/2012 11:15a [facility] Kami Dunlap 427.31 Atrial Of Christin Mittal M.D., Fibrillation [facility], FASNC Office Visit 08/28/2012 8:15a [facility] Young Dunlap 414.9 Ischemic Heart Of [facility] Addison Mittal, Disease Chronic [facility], [facility] Unspec 427.31 Atrial Fibrillation Office Visit 05/29/2012 [facility] Azalea Banks 332.0 Paralysis Agitans 3:00p Services Of [facility] Addison Junior Office Visit 09/09/2006 Neurosurgery Dao Cárdenas 721.0 Spondylosis 3:30p Services Of [facility] Addison Ceballos Cervical W/O Myelopathy 721.3 Spondylosis Lumbar W/O Myelopathy Plan of Treatment Future Appointment(s):12/23/2018 10:40 am - Yisel Scales MD at [facility] Internal [id number]/09/2019 1:45 pm - Aamir Ross M.D. at [facility]12/29/2018 9:15 am - Aamir Ross M.D. at [facility]09/24/2018 - Yisel Scales, MDS22.009D Unspecified fracture of unspecified thoracic vertebra, subseFollow up:I have refilled your pain medication. Please continue to take as you are doing currently F/U 3 gaywupL00.01 longterm (current) use of anticoagulantsFollow up:I will have the patient navigator touch base with you regarding the cost of [id number] Essential (primary) hypertensionFollow up:BP controlled. Continue same medication
--- NOTE | 2018-11-28 20:16 | ED ---
Head Injury - HPI Summary HPI Summary: 78-year-old female presents with head injury today. States that she was walking and ended up twisting her leg and fell backwards and struck her head on a wall. She admits to some neck pain. No loss consciousness. She is on blood thinners for A. fib. She denies any nausea vomiting. No change in vision from baseline. No weakness. No chest pain or shortness breath. Denies any pain in her legs or arms. Denies any other injury. She has been placing ice on her scalp. Has small abrasion noted to the scalp. Is at her normal mental status. - History Of Current Complaint Chief Complaint: EDHeadInjury Stated Complaint: FALL/HEAD INJURY PER IT ASSOCIATE Time Seen by Provider: 11/28/18 19:57 Pain Intensity: 8 - Allergies/Home Medications Allergies/Adverse Reactions: Allergies Allergy/AdvReac Type Severity Reaction Status Date / Time dofetilide [From Tikosyn] Allergy Unknown Verified 11/28/18 18:00 Reaction Details Penicillins Allergy Hives Verified 11/28/18 18:00 crystal light Allergy Airway Uncoded 11/28/18 18:00 Obstruction PMH/Surg Hx/FS Hx/Imm Hx Endocrine/Hematology History: Reports: Hx Anticoagulant Therapy, Hx Blood Transfusions - current visit, Hx Anemia - current Denies: Hx Diabetes, Hx Thyroid Disease Cardiovascular History: Reports: Hx Hypertension, Hx Pacemaker/ICD - RIGHT SIDE , Hx Syncope, Other Cardiovascular Problems/Disorders - RECENT STOKE 3 WEEKS AGO Denies: Hx Angina, Hx Coronary Artery Disease, Hx Hypercholesterolemia, Hx Myocardial Infarction, Hx Peripheral Vascular Disease Respiratory History: Denies: Hx Asthma, Hx Chronic Obstructive Pulmonary Disease (COPD), Other Respiratory Problems/Disorders GI History: Reports: Hx Gastroesophageal Reflux Disease - HISTORY OF, Hx Ulcer - OCTOBER 2016 Musculoskeletal History: Reports: Hx Arthritis, Hx Rheumatoid Arthritis, Hx Back Problems Denies: Hx Osteoporosis Sensory History: Reports: Hx Contacts or Glasses Denies: Hx Hearing Aid Opthamlomology History: Reports: Hx Contacts or Glasses Neurological History: Reports: Hx Migraine, Hx Transient Ischemic Attacks (TIA) , Other Neuro Impairments/Disorders - HISTORY OF [place] Denies: Hx Headaches, Hx Seizures - Cancer History Cancer Type, 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 - Surgical History Surgery Procedure, Year, and Place: skin, hysterectomy- one ovary; appe; pacemaker; heart scraped after infection Hx Anesthesia Reactions: No - Immunization History Date of Tetanus Vaccine: UTD Date of Influenza Vaccine: 2016 Infectious Disease History: No Infectious Disease History: Denies: Hx Clostridium Difficile, Hx Hepatitis, Hx Human Immunodeficiency Virus (HIV), Hx of Known/Suspected MRSA, Hx Shingles, Hx Tuberculosis, Hx Known/ Suspected VRE, Hx Known/Suspected VRSA, History Other Infectious Disease, Traveled Outside the [place] in Last 30 Days - Family History Known Family History: Positive: Cardiac Disease, Hypertension, Other - [place] - Social History Alcohol Use: Rare Hx Substance Use: No Substance Use Type: Reports: None Hx Tobacco Use: No Smoking Status (MU): Never Smoked Tobacco Review of Systems Negative: Fever Negative: Chest Pain Negative: Shortness Of Breath Negative: Abdominal Pain, Nausea Positive: Myalgia - neck pain Positive: Headache All Other Systems Reviewed And Are Negative: Yes Physical Exam Triage Information Reviewed: Yes Vital Signs On Initial Exam: Initial Vitals Temp Pulse Resp BP Pulse Ox 99 F 97 15 154/112 94 11/28/18 18:00 11/28/18 18:00 11/28/18 18:00 11/28/18 18:00 11/28/18 18:00 Vital Signs Reviewed: Yes Appearance: Positive: Well-Appearing Skin: Positive: Warm, Dry, Other - abrasion to posterior head Head/Face: Positive: Normal Head/Face Inspection, Other - contusion to posterior head Eyes: Positive: Normal, EOMI, [place], Conjunctiva Clear ENT: Positive: Normal ENT inspection, Pharynx normal, TMs normal Neck: Positive: Other: - no midline tenderness neck Respiratory/Lung Sounds: Positive: Clear to Auscultation, Breath Sounds Present Cardiovascular: Positive: Normal, RRR Abdomen Description: Positive: Nontender, Soft Bowel Sounds: Positive: Present Musculoskeletal: Positive: Normal Neurological: Positive: Sensory/Motor Intact, Alert, Oriented to Person Place, Time, CN Intact II-III Psychiatric: Positive: Normal - [place] Coma Scale Best Eye Response: 4 - Spontaneous Best Motor Response: 6 - Obeys Commands Best Verbal Response: 5 - Oriented Coma Scale Total: 15 Diagnostics - Vital Signs Vital Signs Temp Pulse Resp BP Pulse Ox 11/28/18 20:00 91 16 93 11/28/18 19:57 22 163/118 11/28/18 19:56 23 11/28/18 18:00 99 F 97 15 154/112 94 - Laboratory Lab Statement: Any lab studies that have been ordered have been reviewed, and results considered in the medical decision making process. - CT brain CT Interpretation Completed By: Radiologist Summary of CT Findings: IMPRESSION: No acute intracranial abnormality. neck CT Interpretation Completed By: Radiologist Summary of CT Findings: IMPRESSION: 1. Multilevel degenerative disc and joint disease. 2. No acute posttraumatic findings. 3. No change from the comparison study. Head Injury Course/Dx Course Of Treatment: 78-year-old female presents with head injury today. States that she was walking and ended up twisting her leg and fell backwards and struck her head on a wall. She admits to some neck pain. No loss consciousness. She is on blood thinners for A. fib. She denies any nausea vomiting. No change in vision from baseline. No weakness. No chest pain or shortness breath. Denies any pain in her legs or arms. Denies any other injury. She has been placing ice on her scalp. Has small abrasion noted to the scalp. Is at her normal mental status. On exam is normal neuro exam. has small abrasion to scalp that cleaned. no midline tenderness neck. CT brain normal. Discuss precautions to return for. Told to follow up primary. Patient understands agrees with plan. - Diagnoses Differential Diagnosis/HQI/PQRI: Concussion Without LOC, Contusion, Intracranial Bleed Provider Diagnoses: Head injury Discharge - Sign-Out/Discharge Documenting (check all that apply): Patient Departure Patient Received Moderate/Deep Sedation with Procedure: No - Discharge Plan Condition: Good Disposition: HOME Patient Education Materials: Head Injury (ED) Referrals: Yisel Scales MD [Primary Care Provider] - Additional Instructions: Place ice on area as needed Take Tylenol for headache every 6 hours Modify activities as tolerated Follow up with primary within 5 days Return to ED if develop vomiting, severe headache, change in behavior, or any new or worsening symptoms - Billing Disposition and Condition Condition: GOOD Disposition: Home
[2018-11-28 20:33] VITALS: BP 159/118
== END 2018-11-28 20:35 | disposition home or self-care (01) ==
LOC: ED 17:42
DX: S09.90XA Unspecified injury of head, initial encounter (principal); W01.10XA Fall on same level from slipping, tripping and stumbling with subsequent striking against unspecified object, initial encounter; Y92.019 Unspecified place in single-family (private) house as the place of occurrence of the external cause; D64.9 Anemia, unspecified; Z88.0 Allergy status to penicillin; Z79.01 Long term (current) use of anticoagulants; Z95.0 Presence of cardiac pacemaker
CPT/HCPCS: 70450; 72125; 99282

== ENCOUNTER 2019-02-24 11:18 | Emergency (ER) | payer MEDICARE ==
--- NOTE | 2019-02-24 11:34 | ED ---
Neurological HPI - HPI Summary HPI Summary: An 79 y/o female brought in by [facility] presents to [facility] with a chief complaint of two episodes of dizziness and one episode of slurred speech only lasting for a few minutes. The patient said that she noticed the slurred speech when talking to a neighbor, but then she realized that it resolved a few minutes later. She then called Dr. Vernon's office who called an ambulance for her. The patient also says that she felt near syncopal. She says that she eats very well. Pt denies any fever, chills, erythema of eyes, sore throat, CP, cough , abdominal pain, N/V, dysuria, hematuria, myalgia, or rash. Per EMS, the patient has a Hx of CVA, cardiac disease, HTN, atrial fibrillation and Parkinson 's. The episode of slurred speech reportedly happened at around 08:30. Cielo baez was called at 11:26. - History of Current Complaint Stated Complaint: DIZZYNESS PER EMS Hx Obtained From: Patient, EMS Onset/Duration: Sudden Onset, Started hours ago, Resolved Timing: Intermittent Episodes Lasting: - one episode of slurred speech for a few minutes Onset Severity: Mild Current Severity: Mild Neurological Deficit Location: Generalized - slurred speech, dizziness Pain Intensity: 0 Pain Scale Used: 0-10 Numeric Character: Dizzy, Impaired Speech - slurred Aggravating: Nothing Alleviating: Nothing Associated Signs and Symptoms: Positive: Dizziness, Impaired Speech - slurred. Negative: Nausea/Vomiting, Fever, Recent Illness, Chest Pain, Shortness of Breath - Additional Pertinent History Primary Care Physician: [id number] - Allergy/Home Medications Allergies/Adverse Reactions: Allergies Allergy/AdvReac Type Severity Reaction Status Date / Time dofetilide [From Tikosyn] Allergy Unknown Verified 11/28/18 18:00 Reaction Details Penicillins Allergy Hives Verified 11/28/18 18:00 crystal light Allergy Airway Uncoded 11/28/18 18:00 Obstruction Home Medications: Home Medications Lisinopril TAB* [Prinivil TAB*] 20 mg PO DAILY 02/24/19 [History Confirmed 02/24] Melatonin (NF) 3 mg PO BEDTIME 02/24/19 [History Confirmed 02/24/19] PMH/Surg Hx/FS Hx/Imm Hx Endocrine/Hematology History: Reports: Hx Anticoagulant Therapy, Hx Blood Transfusions - current visit, Hx Anemia - current Denies: Hx Diabetes, Hx Thyroid Disease Cardiovascular History: Reports: Hx Hypertension, Hx Pacemaker/ICD - RIGHT SIDE , Hx Syncope, Other Cardiovascular Problems/Disorders - RECENT STOKE 3 WEEKS AGO Denies: Hx Angina, Hx Coronary Artery Disease, Hx Hypercholesterolemia, Hx Myocardial Infarction, Hx Peripheral Vascular Disease Respiratory History: Denies: Hx Asthma, Hx Chronic Obstructive Pulmonary Disease (COPD), Other Respiratory Problems/Disorders GI History: Reports: Hx Gastroesophageal Reflux Disease - HISTORY OF, Hx Ulcer - OCTOBER 2016 Musculoskeletal History: Reports: Hx Arthritis, Hx Rheumatoid Arthritis, Hx Back Problems Denies: Hx Osteoporosis Sensory History: Reports: Hx Contacts or Glasses Denies: Hx Hearing Aid Opthamlomology History: Reports: Hx Contacts or Glasses Neurological History: Reports: Hx Migraine, Hx Transient Ischemic Attacks (TIA) , Other Neuro Impairments/Disorders - HISTORY OF PARKINSONS Denies: Hx Headaches, Hx Seizures - Cancer History Cancer Type, 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 - Surgical History Surgery Procedure, Year, and Place: skin, hysterectomy- one ovary; appe; pacemaker; heart scraped after infection Hx Anesthesia Reactions: No - Immunization History Date of Tetanus Vaccine: UTD Date of Influenza Vaccine: 2015 Infectious Disease History: Denies: Hx Clostridium Difficile, Hx Hepatitis, Hx Human Immunodeficiency Virus (HIV), Hx of Known/Suspected MRSA, Hx Shingles, Hx Tuberculosis, Hx Known/ Suspected VRE, Hx Known/Suspected VRSA, History Other Infectious Disease - Family History Known Family History: Positive: Cardiac Disease, Hypertension, Other - CA - Social History Alcohol Use: Rare Hx Substance Use: No Substance Use Type: Reports: None Hx Tobacco Use: No Smoking Status (MU): Never Smoked Tobacco Review of Systems Negative: Fever, Chills Negative: Erythema Negative: Sore Throat Negative: Chest Pain Negative: Shortness Of Breath, Cough Negative: Abdominal Pain, Vomiting, Nausea Negative: dysuria, hematuria Negative: Myalgia, Edema Negative: Rash Neurological: Other - positive: dizziness Positive: Slurred Speech Physical Exam - Summary Physical Exam Summary: Constitutional: Well-developed, Well-nourished, Alert. (-) Distressed Skin: Warm, Dry HENT: Normocephalic; Atraumatic Eyes: Conjunctiva normal Neck: Musculoskeletal ROM normal neck. (-) JVD, (-) Stridor, (-) Tracheal deviation Cardio: Fast irregular heart rate and pulse, Heart sounds normal; Intact distal pulses; The pedal pulses are 2+ and symmetric. Radial pulses are 2+ and symmetric. (-) Murmur Pulmonary/Chest wall: Effort normal. (-) Respiratory distress, (-) Wheezes, (-) Rales Abd: Soft, (-) tenderness, (-) Distension, (-) Guarding, (-) Rebound Musculoskeletal: (-) Edema Lymph: (-) Cervical adenopathy Neuro: Alert, Oriented x3 Psych: Mood and affect Normal Triage Information Reviewed: Yes Vital Signs Reviewed: Yes - [place] Coma Scale Best Eye Response: 4 - Spontaneous Best Motor Response: 6 - Obeys Commands Best Verbal Response: 5 - Oriented Coma Scale Total: 15 Diagnostics - Laboratory Result Diagrams: 02/24/19 11:54 02/24/19 11:54 Lab Statement: Any lab studies that have been ordered have been reviewed, and results considered in the medical decision making process. - Radiology CXR Radiology Interpretation Completed By: Radiologist Summary of Radiographic Findings: NO ACTIVE CARDIOPULMONARY DISEASE. ED physician has reviewed this imaging report. - CT Brain CT Interpretation Completed By: Radiologist Summary of CT Findings: Hypodensity in the right parietal and occipital area consistent with old. infarct. No intracranial mass or hemorrhage is noted. ED physician has reviewed this imaging report. - EKG 11:47 Cardiac Rate: Other Rate - Atrial fibrillation at 107 bpm EKG Rhythm: Atrial Fibrillation Summary of EKG Findings: Atrial fibrillation at 107 bpm, no STEMI. Re-Evaluation - Re-Evaluation First Eval Re-Evaluation Time: 14:27 Change: Improved Comment: Pt denies urinary symptoms and denies flank pain. Second Eval Re-Evaluation Time: 16:46 Comment: She ambulated twice without incident. She says that Dr. Vernon says that her HR is always elevated. Her volume status is good. SHe had 2L of IV fluids, urinated multiple times and feels well. She agrees to return to the ED for changing or worsening symptoms. Course/Dx - Course Course Of Treatment: An 79 y/o female brought in by [facility] presents to [facility] with a chief complaint of two episodes of dizziness and one episode of slurred speech only lasting for a few minutes. The patient said that she noticed the slurred speech when talking to a neighbor, but then she realized that it resolved a few minutes later. She then called Dr. Vernon's office who called an ambulance for her. The patient also says that she felt near syncopal. She says that she eats very well. Pt denies any fever, chills, erythema of eyes , sore throat, CP, cough, abdominal pain, N/V, dysuria, hematuria, myalgia, or rash. Per EMS, the patient has a Hx of CVA, cardiac disease, HTN, atrial fibrillation and Parkinson's. The episode of slurred speech reportedly happened at around 08:30. Cielo baez was called at 11:26. The physical exam revealed a fast irregular heart rate and pulse. GCS 15. Refer to Dr. Ross's consultation. EKG at 11:47 showed Atrial fibrillation at 107 bpm, no STEMI. CXR impression: NO ACTIVE CARDIOPULMONARY DISEASE. Brain CT impression: Hypodensity in the right parietal and occipital area consistent with old infarct. In the ED course the patient was given Bactrim PO and Sodium Chloride IV. No intracranial mass or hemorrhage is noted. Blood work, chemistries and UA obtained. UA consistent with UTI. Upon re-eval Pt denies urinary symptoms and denies flank pain. She ambulated twice without incident. She says that Dr. Vernon says that her HR is always elevated. Her volume status is good. She had 2L of IV fluids, urinated multiple times and feels well. She agrees to return to the ED for changing or worsening symptoms. The patient will be discharged with a prescription for Bactrim and follow up with her PCP in 2-3 days. The patient is agreeable with this plan. - Diagnoses Provider Diagnoses: Near syncope, Dehydration, UTI (urinary tract infection) - Physician Notifications Discussed Care Of Patient With: Aniket Ross Time Discussed With Above Provider: 11:45 Instructed by Provider To: MD Will See In ED Discharge - Sign-Out/Discharge Documenting (check all that apply): Patient Departure - DC Patient Received Moderate/Deep Sedation with Procedure: No - Discharge Plan Condition: Stable Disposition: HOME Prescriptions: Sulfamethox/Trimethoprim DS* [Bactrim DS 800/160 TAB*] 1 tab PO BID #10 tab Patient Education Materials: Dehydration (ED), Urinary Tract Infection in Women (DC), Near Syncope (ED) Referrals: Yisel Scales MD [Primary Care Provider] - 2 Days Additional Instructions: RETURN TO THE EMERGENCY DEPARTMENT FOR CHANGING OR WORSENING SYMPTOMS - Attestation Statements Document Initiated by Scribe: Yes Documenting Scribe: Liang Bravo Provider For Whom Scribe is Documenting (Include Credential): Chin Herron MD Scribe Attestation: ILiang, scribed for Chin Herron MD on 02/24/19 at 2143. Status of Scribe Document: Ready
[2019-02-24] MEDS ORDERED: NS 0.9% 1000 ML** 1,000 ML IV ONE ×2 (11:56→14:24)
[2019-02-24 12:01] LABS: ABS Lymphocytes 1.3 10^3/ul (1.0-4.8); ABS Monocytes 0.5 10^3/ul (0-0.8); ABS Neutrophils 5.2 10^3/ul (1.5-7.7); Eosinophil % 0.2 %; Hematocrit 38 % (35-47); Hemoglobin 12.9 g/dL (12.0-16.0); Lymphocyte % 18.1 %; Mean Corpuscular HGB Conc 34 g/dL (31-36); Mean Corpuscular Hemoglobin 32 pg (27-31); Mean Corpuscular Volume 93 fL (80-97); Mean Platelet Volume 8.2 fL (7.4-10.4); Platelet Count 249 10^3/uL (150-450); Red Cell Distribution Width 15 % (10-15); White Blood Count 7.1 10^3/uL (3.5-10.8)
[2019-02-24 12:20] LABS: Activated Partial Thrombo Time 45.5 seconds (26.0-38.0); INR 1.04 (0.82-1.09)
[2019-02-24 12:29] LABS: ALT < 3 U/L (7-52); AST 11 U/L (13-39); Albumin 4.6 g/dL (3.2-5.2); Albumin/Globulin Ratio 1.5 (1-3); Alkaline Phosphatase 73 U/L (34-104); Anion Gap 9 mmol/L (2-11); Blood Urea Nitrogen 25 mg/dL (6-24); CO2 Carbon Dioxide 26 mmol/L (22-32); Calcium 10.3 mg/dL (8.6-10.3); Chloride 103 mmol/L (101-111); Cholesterol 200 mg/dL; EGFR African American 52.7 (>60); EGFR Non-African American 43.5 (>60); Glucose 105 mg/dL (70-100); HDL Cholesterol 56.5 mg/dL; LDL Cholesterol 113 mg/dL; Potassium 4.7 mmol/L (3.5-5.0); Sodium 138 mmol/L (135-145); Total Protein 7.6 g/dL (6.4-8.9); Triglycerides 152 mg/dL
[2019-02-24 13:35] LABS: Urine Appearance Cloudy; Urine Bacteria 2+ (Absent); Urine Bilirubin Negative (Negative); Urine Blood 1+ (Negative); Urine Color Yellow; Urine Glucose Negative (Negative); Urine Ketones Trace (Negative); Urine Nitrite Negative (Negative); Urine Protein Negative (Negative); Urine Red Blood Cell 3+(>10/hpf) (Absent); Urine Specific Gravity 1.014 (1.010-1.030); Urine Squamous Epithelial Cell Present (Absent); Urine Urobilinogen Negative (Negative); Urine White Blood Cell Trace(0-5/hpf) (Absent)
--- NOTE | 2019-02-24 13:45 | CONS ---
CC: Dr. Scales * CONSULTATION NOTE: DATE OF CONSULT: 02/24/19 CURRENT LOCATION: ED, bed 8. PRIMARY CARE PROVIDER: Dr. Scales. REASON FOR CONSULT: Slurred speech. HISTORY OF PRESENT ILLNESS: Ms. Phelan is an 79-year-old female who has a long history of Parkinson disease, a history of previous strokes, history of atrial fibrillation with a pacemaker; now on Pradaxa, history of severe orthostatic hypotension; on fludrocortisone and follows with Dr. Mittal, history of restless legs, multiple episodes of noncardiac chest pain, and a history of multiple falls. She was in her usual state of health when this morning she got up around 4 a.m., feeling well. She went to walk her dog at around 7 a.m. and suddenly started to feel dizzy. This is not an uncommon occurrence for her. At times, she gets very orthostatic and will stand up and get dizzy. At that time, she started to have some trouble with her words. She felt like her speech was slurred. She denied any focal weakness. She states that both hands and both feet became a little numb, but this sometimes happened when she gets cold. Her landlord at one point came up to her and was speaking to her and thought maybe her speech sounded a little different. She went inside and subsequently called the ambulance and was brought to the ER. In the ER, a chip baez was called. She went immediately to the CT scanner. CT of the brain showed her old infarct in the right parietoccipital region. No intracranial mass or hemorrhage was noted. At this point, the patient is back to her baseline. When I calculated NIH stroke scale, I got 2, 1 for partial hemianopsia on the left and 1 for mild drift in the left lower extremity. She states that her symptoms have completely resolved. She denies any chest pain and any shortness of breath. She has had no recent illnesses. She has had no diarrhea or constipation. No nausea or vomiting. She has had several falls, was in the ER several months ago for a fall. Fortunately, there was no bleeding despite the fact that she hit her head. She was also sent to [facility] in October for gallbladder issues, but ended up not having surgery. She states that her Parkinson disease has generally been well controlled. She does take carbidopa/levodopa and she has had no worsening of that. She has had no significant tremors. She denies any recent hallucinations and feels that her memory is stable. PAST MEDICAL HISTORY: Noted above. MEDICATIONS AT HOME: Include: 1. Amlodipine 5 mg p.o. q.a.m. 2. Omeprazole 40 mg p.o. b.i.d. 3. Carbidopa/levodopa 25/100 two tabs at 8 a.m. Per my record, she also takes 1- 1/2 tabs at noon, 1 tab at 4 p.m., and 2 tabs at 8 p.m. 4. Melatonin at night. 5. Lisinopril 20 mg p.o. daily. 6. Fludrocortisone 0.1 mg p.o. daily. 7. Metoprolol 50 mg p.o. b.i.d. 8. Pradaxa 75 mg p.o. b.i.d. ALLERGIES: To PENICILLIN, ZOCOR, and TIKOSYN. FAMILY HISTORY: Significant for father with heart disease, mother with heart disease, sibling with lung cancer. SOCIAL HISTORY: She lives by herself. She is retired. No history of tobacco use. She occasionally, rarely, uses alcohol. No drug use. Drinks coffee and tea occasionally. REVIEW OF SYSTEMS: In 14-organ systems is as noted above; otherwise, negative. PHYSICAL EXAM: Vital Signs: Temperature afebrile, blood pressure 162/131 (she states that she normally runs high), pulse rate 105, respiratory rate 18, O2 sat of 99%. In general, she is a well-nourished, well-developed female, in no acute distress. She is pleasant, has a good sense of humor. HEENT: She is normocephalic, atraumatic. Sclerae are anicteric. Mucous membranes are moist. Oropharynx is clear. She has good dentition. Neck is supple. No thyromegaly. No carotid bruits. Chest is clear to auscultation bilaterally. Cardiovascular is irregularly irregular without murmurs. Abdomen is nontender. Extremities: There is no significant clubbing, cyanosis, or edema. Her skin is warm and dry without any major lesions. On neurologic exam, she is awake, alert, oriented x3. Her speech is fluent with no dysarthria. Her repetition is intact. Recall is intact. Mood is euthymic. Affect and mood congruent. Cranial Nerves : Pupils are equally round and reactive to light and accommodation. Extraocular muscles are intact. No nystagmus. No diplopia. She has a left homonymous, nearly complete hemianopsia. Her face is symmetric. Her facial sensation is intact to light touch. Her palate raises symmetrically. Tongue is midline. Motor Exam: She spontaneously moves all extremities antigravity. She has mildly increased tone in the right greater than left upper extremity. No cogwheeling. She has good strength and resistance 5/5 throughout with very subtle drift in the left lower extremity. DTRs were 1+ at the right biceps, 2+ at the left biceps, 1+ at the right patella, 2+ at the left patella, 1+ at the ankle bilaterally, equivocal Babinski's bilaterally. Sensation is intact to light touch and pinprick. She has no neglect or extinguishing. [id number] and rapid alternating movements are slow, but there is no difficulty with finger tap. She has no significant resting tremor at this time. There is no [id number] tremor. No head tremor. I did sit her up on the side of the bed. She did not become dizzy, but I did not walk her due to her recent dizziness. DIAGNOSTIC STUDIES/LAB DATA: Labs: CBC with diff was essentially normal. A complete metabolic profile is pending. CT of the head as noted above. ASSESSMENT AND PLAN: Ms. Phelan is an 79-year-old female with a history of prior right-sided stroke, history of prior transient ischemic attacks as well, history of atrial fibrillation; now on Pradaxa, history of Parkinson disease; on Sinemet with a history of significant orthostatic hypotension; on fludrocortisone. She follows with Dr. Mittal as well for her cardiac issues. She notes to me that her blood pressures typically run on the high end and Dr. Mittal is aware of that because she becomes so orthostatic when she stands up. She has a history of becoming dizzy when she stands up and she has longstanding deficits from her prior right-sided stroke including a left homonymous hemianopsia and some mild weakness on the left side. She presents today after she developed some what she described as slurred speech after she had been walking her dog. She denied any focal weakness. She did have some numbness in her hands and feet bilaterally. All of her symptoms have now resolved. She has not fallen recently nor did she fall today. She was brought in feeling somewhat dizzy. CT scan of the head showed no acute changes. At this point, my suspicion that this was a transient ischemic attack is extremely low. I suspect that she likely became orthostatic and started to develop some speech slurring. I do not think we need to do any additional workup at this time as her symptoms have completely resolved. I have asked the ER physician to do orthostatics and to watch her. She has a history of atrial fibrillation, but is on Pradaxa. Her blood pressures are currently elevated, but she normally runs high. I would not change her medications at this point. She was seen in my clinic recently and we have had multiple discussions with her about the need to wait after she stands and give her body time to readjust and re-calibrate, which she is trying to do. She is getting physical therapy as well, which has helped her. She knows to return to the ER immediately should she develop any new symptoms, but I think for now given the fact that she has had similar symptoms in the past and that she has now resolved, she can be discharged home. We will plan to follow her up in the clinic. Thank you for the opportunity to participate in the care of this interesting patient. [id number]/[facility] #: [id number]
[2019-02-24] MEDS ORDERED: Sulfamethox/Trimethoprim DS 800/160* TAB PO ONE (14:24)
[2019-02-24 17:17] VITALS: BP 129/96
== END 2019-02-24 17:15 | disposition home or self-care (01) ==
LOC: ED 11:18
DX: R55 Syncope and collapse (principal); E86.0 Dehydration; N39.0 Urinary tract infection, site not specified; R42 Dizziness and giddiness; K21.9 Gastro-esophageal reflux disease without esophagitis; R47.81 Slurred speech; Z79.01 Long term (current) use of anticoagulants; Z95.0 Presence of cardiac pacemaker; I10 Essential (primary) hypertension; Z88.0 Allergy status to penicillin
CPT/HCPCS: 36415; 70450; 71045; 80053; 80061; 81003; 81015; 83605; 84484; 85025; 85610; 85730; 87077; 87086; 87186; 93005; 96360; 96361; 99284; A9270-GY

== ENCOUNTER 2019-03-18 01:35 | Observation (INO) | payer MEDICARE ==
--- NOTE | 2019-03-18 02:20 | ED ---
HPI Chest Pain - HPI Summary HPI Summary: This patient is a 79 year old F presenting [place] [facility] [place] aide with a chief complaint of chest pain for approx. half hour. Pt reports when she woke up it felt like pounding but currently chest just hurts. Dr. Mittal is patients merchandise examiner and he prefers to keep blood pressure high because otherwise pt has syncopal episodes. Symptoms aggravated by laughing. Per triage the patient rates the pain 7/10 in severity. - History of Current Complaint Chief Complaint: EDChestPainROMI Time Seen by Provider: 03/18/19 01:45 Hx Obtained From: Patient Onset/Duration: Started Minutes Ago, Still Present Timing: Constant, Lasting Minutes Initial Severity: Severe Current Severity: Severe Pain Intensity: 7 Pain Scale Used: 0-10 Numeric Character: Pounding Aggravating Factor(s): Other: - laughing Alleviating Factor(s): Nothing - Additional Pertinent History Primary Care Physician: [id number] - Allergy/Home Medications Allergies/Adverse Reactions: Allergies Allergy/AdvReac Type Severity Reaction Status Date / Time dofetilide [From Tikosyn] Allergy Unknown Verified 03/18/19 01:45 Reaction Details Penicillins Allergy Hives Verified 03/18/19 01:45 crystal light Allergy Airway Uncoded 11/28/18 18:00 Obstruction PMH/Surg Hx/FS Hx/Imm Hx Endocrine/Hematology History: Reports: Hx Anticoagulant Therapy, Hx Blood Transfusions - current visit, Hx Anemia - current Denies: Hx Diabetes, Hx Thyroid Disease Cardiovascular History: Reports: Hx Hypertension, Hx Pacemaker/ICD - RIGHT SIDE , Hx Syncope, Other Cardiovascular Problems/Disorders - RECENT STOKE 3 WEEKS AGO Denies: Hx Angina, Hx Coronary Artery Disease, Hx Hypercholesterolemia, Hx Myocardial Infarction, Hx Peripheral Vascular Disease Respiratory History: Denies: Hx Asthma, Hx Chronic Obstructive Pulmonary Disease (COPD), Other Respiratory Problems/Disorders GI History: Reports: Hx Gastroesophageal Reflux Disease - HISTORY OF, Hx Ulcer - OCTOBER 2016 Musculoskeletal History: Reports: Hx Arthritis, Hx Rheumatoid Arthritis, Hx Back Problems Denies: Hx Osteoporosis Sensory History: Reports: Hx Contacts or Glasses Denies: Hx Hearing Aid Opthamlomology History: Reports: Hx Contacts or Glasses Neurological History: Reports: Hx Migraine, Hx Transient Ischemic Attacks (TIA) , Other Neuro Impairments/Disorders - HISTORY OF P[place]INSONS Denies: Hx Headaches, Hx Seizures - Cancer History Cancer Type, 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 - Surgical History Surgery Procedure, Year, and Place: skin, hysterectomy- one ovary; appe; pacemaker; heart scraped after infection Hx Anesthesia Reactions: No - Immunization History Date of Tetanus Vaccine: UTD Date of Influenza Vaccine: 2015 Infectious Disease History: No Infectious Disease History: Denies: Hx Clostridium Difficile, Hx Hepatitis, Hx Human Immunodeficiency Virus (HIV), Hx of Known/Suspected MRSA, Hx Shingles, Hx Tuberculosis, Hx Known/ Suspected VRE, Hx Known/Suspected VRSA, History Other Infectious Disease, Traveled Outside the [place] in Last 30 Days - Family History Known Family History: Positive: Cardiac Disease, Hypertension, Other - CA - Social History Alcohol Use: Rare Hx Substance Use: No Substance Use Type: Reports: None Hx Tobacco Use: No Smoking Status (MU): Never Smoked Tobacco Review of Systems Negative: Fever Positive: Chest Pain All Other Systems Reviewed And Are Negative: Yes Physical Exam - Summary Physical Exam Summary: VITAL SIGNS: Reviewed. GENERAL: Patient is a well-developed and nourished female who is lying comfortable in the stretcher. Patient is not in any acute respiratory distress. HEAD AND FACE: No signs of trauma. No ecchymosis, hematomas or skull depressions. No sinus tenderness. EYES: PERRLA, EOMI x 2, No injected conjunctiva, no nystagmus. EARS: Hearing grossly intact. Ear canals and tympanic membranes are within normal limits. MOUTH: Oropharynx within normal limits. NECK: Supple, trachea is midline, no adenopathy, no JVD, no carotid bruit, no c- spine tenderness, neck with full ROM CHEST: Symmetric, no tenderness at palpation, irregular heart rate, LUNGS: Clear to auscultation bilaterally. No wheezing or crackles, decreased breath sounds bilateral. CVS: Regular rate and rhythm, S1 and S2 present, no murmurs or gallops appreciated. ABDOMEN: Soft, non-tender. No signs of distention. No rebound no guarding, and no masses palpated. Bowel sounds are normal. EXTREMITIES: FROM in all major joints, no edema, no cyanosis or clubbing. NEURO: Alert and oriented x 3. No acute neurological deficits. Speech is normal and follows commands. SKIN: Dry and warm Triage Information Reviewed: Yes Vital Signs On Initial Exam: Initial Vitals Temp Pulse Resp BP Pulse Ox 99.1 F 99 18 181/120 98 03/18/19 01:41 03/18/19 01:41 03/18/19 01:41 03/18/19 01:41 03/18/19 01:41 Vital Signs Reviewed: Yes Diagnostics - Vital Signs Vital Signs Temp Pulse Resp BP Pulse Ox 03/18/19 01:50 103 182/118 98 03/18/19 01:49 106 98 03/18/19 01:41 99.1 F 99 18 181/120 98 - Laboratory Result Diagrams: 03/18/19 02:52 03/18/19 02:52 Lab Statement: Any lab studies that have been ordered have been reviewed, and results considered in the medical decision making process. - Radiology CXR Radiology Interpretation Completed By: ED Physician Summary of Radiographic Findings: CXR reveals, no acute process. Pending offical radiology report. - EKG 0140 EKG Rhythm: Atrial Fibrillation Summary of EKG Findings: An EKG at 0140 reveals a fib 110 bpm, Q-waves in inferior leads. Chest Pain Course/Dx - Course Course Of Treatment: This patient is a 79 year old F presenting to [facility] accompanied by aide with a chief complaint of chest pain for approx. half hour. Pt reports when she woke up it felt like pounding but currently chest just hurts. Dr. Mittal is patients merchandise examiner and he prefers to keep blood pressure high because otherwise pt has syncopal episodes. Symptoms aggravated by laughing. Per triage the patient rates the pain 7/10 in severity. Physical exam findings are nml, except irregular heart rate and decreased breath sounds. Blood work obtained. UA obtained. An EKG at 0140 reveals a fib 110 bpm, Q- waves in inferior leads. CXR reveals, per radiologist, no acute process. Pending official radiology report. In the ED course the patient was given aspirin, and metoprolol tartrate. We discussed patient care with Dr. Osorio, and she accepts pt for admission. Patient will be admitted. The patient is agreeable with this plan. - Diagnoses Provider Diagnoses: Chest pain - Provider Notifications Discussed Care Of Patient With: Vanna Osorio Time Discussed With Above Provider: 04:05 Instructed by Provider To: Other - discussed patient care with Dr. Osorio, and she accepts pt for admission. Discharge - Sign-Out/Discharge Documenting (check all that apply): Patient Departure - Admit Patient Received Moderate/Deep Sedation with Procedure: No - Discharge Plan Condition: Good Disposition: ADMITTED TO [facility] Referrals: Yisel Scales MD [Primary Care Provider] - - Attestation Statements Document Initiated by Windye: Yes Documenting Scribe: Odessa Lombardo Provider For Whom Blancaibe is Documenting (Include Credential): Dr. Georgette Ferguson MD Scribe Attestation: Odessa Hernandes scribed for Dr. Georgette Ferguson MD on 03/18/19 at 0436. Status of Scribe Document: Ready
[2019-03-18] MEDS ORDERED: Aspirin 81 mg CHEW TAB* 81 MG TAB.CHEW PO ONE (02:40)
[2019-03-18] MEDS: Metoprolol Tartrate IV* 1 MG/ML 5 ML VIAL IV ONE ×2 (02:50→03:35)
[2019-03-18 03:04] LABS: ABS Basophils 0.1 10^3/ul (0-0.2); ABS Lymphocytes 1.2 10^3/ul (1.0-4.8); ABS Monocytes 0.6 10^3/ul (0-0.8); Eosinophil % 0.7 %; Hematocrit 34 % (35-47); Hemoglobin 11.4 g/dL (12.0-16.0); Lymphocyte % 17.6 %; Mean Corpuscular HGB Conc 34 g/dL (31-36); Mean Corpuscular Hemoglobin 32 pg (27-31); Mean Corpuscular Volume 94 fL (80-97); Mean Platelet Volume 7.9 fL (7.4-10.4); Platelet Count 251 10^3/uL (150-450); Red Blood Count 3.63 10^6 /uL (3.70-4.87); Red Cell Distribution Width 16 % (10-15)
[2019-03-18 03:18] LABS: Activated Partial Thrombo Time 38.4 seconds (26.0-38.0); INR 1.01 (0.82-1.09)
[2019-03-18 03:20] LABS: ALT < 3 U/L (7-52); AST 9 U/L (13-39); Albumin 4.2 g/dL (3.2-5.2); Albumin/Globulin Ratio 1.5 (1-3); Alkaline Phosphatase 70 U/L (34-104); Anion Gap 9 mmol/L (2-11); BUN/Creatinine Ratio 31.1 (8-20); Blood Urea Nitrogen 32 mg/dL (6-24); CO2 Carbon Dioxide 26 mmol/L (22-32); Chloride 103 mmol/L (101-111); EGFR African American 62.2 (>60); EGFR Non-African American 51.4 (>60); Globulin 2.8 g/dL (2-4); Glucose 113 mg/dL (70-100); Magnesium 1.8 mg/dL (1.9-2.7); Potassium 3.7 mmol/L (3.5-5.0); Sodium 138 mmol/L (135-145)
[2019-03-18] MEDS ORDERED: Acetaminophen TAB* 325 MG PO PRN (04:58)
[2019-03-18] MEDS ORDERED: hydrOXYzine HCL TAB* 25 MG PO PRN (04:58)
[2019-03-18] MEDS ORDERED: Magnesium Oxide TAB* 400 MG PO ONE (05:09)
[2019-03-18 07:49] LABS: ABS Basophils 0.1 10^3/ul (0-0.2); ABS Lymphocytes 0.9 10^3/ul (1.0-4.8); ABS Monocytes 0.4 10^3/ul (0-0.8); Eosinophil % 0.2 %; Hematocrit 36 % (35-47); Hemoglobin 12.2 g/dL (12.0-16.0); Lymphocyte % 12.7 %; Mean Corpuscular HGB Conc 34 g/dL (31-36); Mean Corpuscular Hemoglobin 32 pg (27-31); Mean Corpuscular Volume 93 fL (80-97); Mean Platelet Volume 8.1 fL (7.4-10.4); Platelet Count 265 10^3/uL (150-450); Red Blood Count 3.81 10^6 /uL (3.70-4.87); Red Cell Distribution Width 16 % (10-15); White Blood Count 7.4 10^3/uL (3.5-10.8)
[2019-03-18 08:08] LABS: BUN/Creatinine Ratio 27.3 (8-20); Calcium 9.8 mg/dL (8.6-10.3); EGFR African American 65.1 (>60); EGFR Non-African American 53.8 (>60); Potassium 3.6 mmol/L (3.5-5.0)
[2019-03-18 08:09] LABS: Troponin I 0.01 ng/mL (<0.04)
[2019-03-18] MEDS ORDERED: Regadenoson* 0.4 MG/5 ML SYRINGE ONE (08:37)
[2019-03-18] MEDS ORDERED: CMCS: Dabigatran CAP(NF) 75 MG CAP PO SCH (09:00)
[2019-03-18] MEDS ORDERED: Nitro 2% OINT* (Nitroglycerin) 1 INCH/PAK PAK TOPICAL ONE (10:22)
--- NOTE | 2019-03-18 10:45 | PN ---
Subjective Date of Service: 03/18/19 Interval History: Received call from RN this morning that patient's chest pressure was worsening and she felt overall "unwell". Given these reports patient stress test was canceled, troponins ordered and EKG ordered. In addition RN reports patient had a run of an arrhythmia that was unclear if it was SVT or VT. This filing writer to bedside and patient reports chest pressure is an "6" out of 10. She reports last evening she woke from sleep unable to catch her breath and with chest pressure which prompted her to come to ED. Tele strip reviewed and appears bigemeny and possible LBBB. EKG reviewed and has diffuse T wave inversion. Patient currently denies sob, diaphoresis, nausea, vomiting. Complains of chest pressure as mentioned above. Objective Active Medications: Acetaminophen (Tylenol Tab*) 650 mg PO Q4HR PRN PRN Reason: PAIN Amlodipine Besylate (Norvasc Tab*) 5 mg PO QAM EDY Carbidopa/Levodopa (Sinemet 25/100 Tab(*)) 1 tab PO DAILY@1600 EDY Carbidopa/Levodopa (Sinemet 25/100 Tab(*)) 1.5 tab PO DAILY@1200 EDY Carbidopa/Levodopa (Sinemet 25/100 Tab(*)) 2 tab PO DAILY@0800 EDY Carbidopa/Levodopa (Sinemet 25/100 Tab(*)) 2 tab PO DAILY@2000 EDY Fludrocortisone Acetate (Florinef Tab*) 0.1 mg PO DAILY EDY Hydroxyzine HCl (Atarax Tab*) 25 mg PO Q6H PRN PRN Reason: ANXIETY Lisinopril (Prinivil Tab*) 20 mg PO DAILY [facility] Metoprolol Tartrate (Lopressor Tab*) 50 mg PO BID EDY Pantoprazole Sodium (Protonix Tab*) 40 mg PO BID [facility] Vital Signs - 8 hr 03/18/19 03/18/19 03/18/19 02:50 03:01 03:03 Temperature Pulse Rate 93 107 Respiratory 18 16 21 Rate Blood Pressure 192/113 202/127 (mmHg) O2 Sat by Pulse 97 97 Oximetry 03/18/19 03/18/19 03/18/19 03:13 03:24 03:42 Temperature Pulse Rate 99 117 103 Respiratory 15 17 25 Rate Blood Pressure 172/132 191/165 158/107 (mmHg) O2 Sat by Pulse 100 95 98 Oximetry 08/01/19 08/01/19 08/01/19 03:53 04:01 04:07 Temperature Pulse Rate 96 110 105 Respiratory 12 9 19 Rate Blood Pressure 157/125 151/104 (mmHg) O2 Sat by Pulse 95 98 95 Oximetry 03/18/19 03/18/19 03/18/19 04:09 04:38 05:01 Temperature Pulse Rate 96 94 Respiratory 28 19 Rate Blood Pressure 175/106 (mmHg) O2 Sat by Pulse 96 99 97 Oximetry 03/18/19 03/18/19 03/18/19 05:08 05:35 05:44 Temperature 97.9 F 98.6 F Pulse Rate 101 110 94 Respiratory 14 17 16 Rate Blood Pressure 169/118 165/94 169/118 (mmHg) O2 Sat by Pulse 97 99 97 Oximetry 03/18/19 07:45 Temperature 98.1 F Pulse Rate 96 Respiratory 16 Rate Blood Pressure 182/110 (mmHg) O2 Sat by Pulse 98 Oximetry Oxygen Devices in Use Now: None Appearance: Comfortable, NAD Eyes: No Scleral Icterus Ears/Nose/Mouth/Throat: Clear Oropharnyx, Mucous Membranes Moist Neck: NL Appearance and Movements; NL JVP Respiratory: Symmetrical Chest Expansion and Respiratory Effort, Clear to Auscultation Cardiovascular: NL Sounds; No Murmurs; No JVD, RRR, No Edema Abdominal: NL Sounds; No Tenderness; No Distention Lymphatic: No Cervical Adenopathy Extremities: No Clubbing, Cyanosis Skin: No Rash or Ulcers Neurological: Alert and Oriented x 3, NL Muscle Strength and Tone Result Diagrams: 03/18/19 07:28 03/18/19 07:28 Additional Lab and Data: Laboratory Results - last 24 hr 03/18/19 03/18/19 03/18/19 02:52 02:52 02:52 WBC 7.0 RBC 3.63 L Hgb 11.4 L Hct 34 L MCV 94 MCH 32 H MCHC 34 RDW 16 H Plt Count 251 MPV 7.9 Neut % (Auto) 72.1 Lymph % (Auto) 17.6 [place] % (Auto) 8.7 Eos % (Auto) 0.7 Baso % (Auto) 0.9 Absolute Neuts (auto) 5.0 Absolute Lymphs (auto) 1.2 Absolute Monos (auto) 0.6 Absolute Eos (auto) 0.0 Absolute Basos (auto) 0.1 Absolute Nucleated RBC 0.0 Nucleated RBC % 0.0 INR (Anticoag Therapy) APTT Sodium 138 Potassium 3.7 Chloride 103 Carbon Dioxide 26 Anion Gap 9 BUN 32 H Creatinine 1.03 H Est GFR ( Amer) 62.2 Est GFR (Non-Af Amer) 51.4 BUN/Creatinine Ratio 31.1 H Glucose 113 H Lactic Acid 0.8 Calcium 10.0 Magnesium 1.8 L Total Bilirubin 0.50 AST 9 L ALT < 3 L Alkaline Phosphatase 70 Troponin I 0.00 B-Natriuretic Peptide Total Protein 7.0 Albumin 4.2 Globulin 2.8 Albumin/Globulin Ratio 1.5 03/18/19 03/18/19 03/18/19 02:52 02:52 07:28 WBC RBC Hgb Hct MCV MCH MCHC RDW Plt Count MPV Neut % (Auto) Lymph % (Auto) [place] % (Auto) Eos % (Auto) Baso % (Auto) Absolute Neuts (auto) Absolute Lymphs (auto) Absolute Monos (auto) Absolute Eos (auto) Absolute Basos (auto) Absolute Nucleated RBC Nucleated RBC % INR (Anticoag Therapy) 1.01 APTT 38.4 H Sodium 139 Potassium 3.6 Chloride 103 Carbon Dioxide 28 Anion Gap 8 BUN 27 H Creatinine 0.99 H Est GFR ( Amer) 65.1 Est GFR (Non-Af Amer) 53.8 BUN/Creatinine Ratio 27.3 H Glucose 112 H Lactic Acid Calcium 9.8 Magnesium Total Bilirubin AST ALT Alkaline Phosphatase Troponin I 0.01 B-Natriuretic Peptide 379 H Total Protein Albumin Globulin Albumin/Globulin Ratio 03/18/19 03/18/19 03/18/19 07:28 10:52 14:00 WBC 7.4 RBC 3.81 Hgb 12.2 Hct 36 MCV 93 MCH 32 H MCHC 34 RDW 16 H Plt Count 265 MPV 8.1 Neut % (Auto) 80.3 Lymph % (Auto) 12.7 [place] % (Auto) 6.0 Eos % (Auto) 0.2 Baso % (Auto) 0.8 Absolute Neuts (auto) 6.0 Absolute Lymphs (auto) 0.9 L Absolute Monos (auto) 0.4 Absolute Eos (auto) 0.0 Absolute Basos (auto) 0.1 Absolute Nucleated RBC 0.0 Nucleated RBC % 0.0 INR (Anticoag Therapy) APTT Sodium Potassium Chloride Carbon Dioxide Anion Gap BUN Creatinine Est GFR ( Amer) Est GFR (Non-Af Amer) BUN/Creatinine Ratio Glucose Lactic Acid Calcium Magnesium Total Bilirubin AST ALT Alkaline Phosphatase Troponin I 0.01 0.01 B-Natriuretic Peptide Total Protein Albumin Globulin Albumin/Globulin Ratio Microbiology and Other Data: . Assess/Plan/Problems-Billing Assessment: 79 yr old female with pmh of afib, cva, hld, orthostatic hypotension, parkinsons , chf, vt, sinus node dysfunction; who presented to ED with cp - Patient Problems (1) Chest pain Comment: - Patient reports she woke with chest "pressure" and sob, therfeore, presented to ED - Chest pressure worsened this afternoon so stress test cancelled. - Repeat EKG revealed diffuse T wave inversion therefore cardiology consulted, trops ordered, and nitro paste placed. - Cardiology suspected GI related given negative trops, previous inverted T waves noted, and patient hx, therefore, Gallbladder US ordered and carfate added to medication regime (2) Shortness of breath Comment: - Elevated BNP - Echo ordered by Cardiology - Daily weights and strict I/Os (3) Sinus node dysfunction Comment: - Pacemaker placed 2007 and changed 2015 (4) PUD (peptic ulcer disease) Comment: - Hx of PUD - Cont PPI (5) A-fib Comment: - Cont Metoprolol and Pradaxa - Currently rate controlled (6) History of CVA (cerebrovascular accident) Comment: - No neurological changes - Cont Pradaxa (7) Parkinsons Comment: - Continue Sinimet (8) Dyslipidemia Comment: - Not on statin - Lipids ordered Attending: Nicola Smith
--- NOTE | 2019-03-18 10:47 | HP ---
CC: Dr. Yisel Scales; Dr. Young Mittal * HISTORY AND PHYSICAL: DATE OF ADMISSION: 03/18/19 PRIMARY CARE PROVIDER: Dr. Yisel Scales. ENGRAVING SUPERVISOR: Dr. Young Mittal. ATTENDING PHYSICIAN: Dr. Vanna Osorio * (dictated by Kristin Fall NP). CHIEF COMPLAINT: Chest pain. HISTORY OF PRESENT ILLNESS: Ms. Phelan is an 79-year-old female with a past medical history of AFib, CVA, Parkinson's, orthostatic hypotension, and chronic diastolic congestive heart failure, who presents to the emergency room today with complaints of chest pain. The patient has been feeling in her normal state of health, but does note that she was feeling quite tired most of the day yesterday and slept on and off throughout the day. She went to bed last night and was feeling fine and around 1:30 today, woke up and noted some pain when she was taking a deep breath. She stood up and tried to grab her walker to get up to the bathroom, though was not able to grab her walker and subsequently felt pain and pressure across her chest. She describes it as feeling as though someone was standing on her chest. The patient is primarily midsternal. She does also note shortness of breath and feeling as though she cannot take a deep breath. She is not sure that she was actually having pain, but states that it "hurts." She denies any palpitations, cough or dizziness. While in the emergency room, the patient was noted to have normal vitals, though has been slightly hypertensive. She had labs which were essentially unremarkable and her first troponin was 0.00. She had an unremarkable chest x- ray. Due to the concern for chest pain with her significant personal cardiac and family history, the hospitalist service was asked to evaluate her for admission. PAST MEDICAL HISTORY: 1. Atrial fibrillation. 2. CVA. 3. Hyperlipidemia. 4. Orthostatic hypotension. 5. Parkinson's disease. 6. Chronic diastolic congestive heart failure. 7. Paroxysmal ventricular tachycardia. PAST SURGICAL HISTORY: 1. Pacemaker. 2. Appendectomy. 3. Hysterectomy. HOME MEDICATIONS: 1. Acetaminophen 650 mg p.o. q.4 hours p.r.n. pain. 2. Amlodipine 5 mg p.o. daily. 3. Sinemet 25/100 two tabs in the morning, 1-1/2 tabs at lunch, 1 tab at dinner and 2 tabs at bedtime. 4. Pradaxa 75 mg p.o. daily. 5. Florinef 0.1 mg p.o. daily. 6. Hydroxyzine 25 mg p.o. q.6 hours p.r.n. anxiety. 7. Lisinopril 20 mg p.o. daily. 8. Metoprolol tartrate 50 mg p.o. b.i.d. 9. Omeprazole 40 mg p.o. b.i.d. ALLERGIES: TIKOSYN and PENICILLIN. FAMILY HISTORY: The patient's mother of an MT at 68 and her father of an MT in 71. SOCIAL HISTORY: The patient denies any tobacco, alcohol, recreational drug use. She lives alone and has 2 aides that come and see her every day. Her son, Tyler [place] will be her surrogate decision maker in the event she is unable to make her own decisions. REVIEW OF SYSTEMS: An 11-point review of systems was performed and all the pertinent positive and negative findings are in the HPI. All other systems are negative. PHYSICAL EXAMINATION GENERAL: Ms. Phelan is well-developed, well-nourished elderly white female lying in bed in no acute distress. She appears her stated age. VITAL SIGNS: Temp 99.1, heart rate 90, respiratory rate 28, oxygen saturation 99% on room air, and blood pressure 175/106. HEENT: Head is atraumatic, normocephalic. Visual mckenzie are grossly intact. Pupils equal, round and reactive to light and accommodation. Oral mucous membranes moist. NECK: Trachea midline. No lymphadenopathy. RESPIRATORY: Symmetrical chest expansion. No chest wall deformities. Lungs clear to auscultation throughout. No rhonchi, wheezes, or rubs. CARDIOVASCULAR: Irregular rhythm with a normal rate. S1, S2 present. No murmurs, rubs, or gallops. No JVD. Chest pain is reproducible with palpation of the sternum. ABDOMEN: Soft, nontender to palpation. Bowel sounds normoactive throughout. EXTREMITIES: Skin warm and smooth bilaterally. No edema. No clubbing or cyanosis. NEUROLOGIC: Awake, alert, and oriented x4. Cranial nerves II through XII grossly intact. Moves all extremities. DIAGNOSTIC STUDIES AND LABORATORY DATA: WBC 7.0, RBC 2.63, hemoglobin 11.4, hematocrit 34, platelets 251. INR 1.1. Sodium 138, potassium 3.7, chloride 103 , carbon dioxide 26, BUN 32, creatinine 1.03, lactic acid 0.8, magnesium 1.8, troponin 0.00. BNP 379. EKG shows atrial fibrillation with a rate of 110, QTc 412. EKG appears consistent with previous EKG on file. Chest x-ray to my read shows no active cardiopulmonary disease. Radiologist's impression is pending. ASSESSMENT AND PLAN: Ms. Phelan is an 79-year-old female with past medical history of atrial fibrillation, cerebrovascular accident, hyperlipidemia, orthostatic hypotension, Parkinson's disease and chronic diastolic congestive heart failure, who presented to the emergency room today with complaints of chest pain. The patient will be admitted for observation for: 1. Chest pain. The patient has had 1 negative troponin and will have additional troponins at 0600 to 0900. EKG does not show any ST changes and chest pain is reproducible, all of which are reassuring signs. Though the patient does carry a significant personal cardiac history and has significant family history of coronary artery disease, she reports that she had an outpatient stress test earlier this year, which was normal, though this is the first time that she has ever experienced this type of pain. We will plan on stressing her in the morning as long as her next 2 troponins are normal. She will be n.p.o. and I will repeat an EKG later this morning. 2. Atrial fibrillation. The patient is in atrial fibrillation that is rate controlled at this point. I will continue her metoprolol and Pradaxa. 3. History of cerebrovascular accident. Continue Pradaxa. 4. Orthostatic hypotension. Continue Florinef. 5. Parkinson's disease. Continue Sinemet. 6. Chronic diastolic congestive heart failure. Continue lisinopril and metoprolol. 7. FEN. The patient does not require any fluid resuscitation. Magnesium is slightly low. So, I will give her some magnesium oxide this morning and she will be n.p.o. pending a stress test. 8. Code status. The patient will be a full code. 9. DVT prophylaxis. According to the DVT Risk Assessment, the patient scores a 4, putting her at highest risk. I will continue her Pradaxa. TIME SPENT: Approximately 60 minutes was spent on this admission, greater than half of that time spent [id number] with the patient obtaining my history, performing my physical exam, and reviewing the plan of care. This case has been reviewed with my attending, Dr. Osorio, who is in agreement with the plan of care. KRISTIN FALL, SAMPLE SUPERVISOR [id number]/CPS #: [id number]
[2019-03-18] MEDS ORDERED: Carbidopa/Levodop 25/100 MG TAB(*) PO SCH ×3 (12:00→20:00)
--- NOTE | 2019-03-18 13:46 | CONSULT ---
Subjective Date of Service: 03/18/19 Interval History: Admission Date: 03/18/19 Consult date 03/18/2019 Service: Hospitalist PCP: Dr. Yisel Scales Ent Physician: Dr. Young Mittal CC: Epigastric pain, dyspnea Reason for consult: same HISTORY OF PRESENT ILLNESS: Ms. Phelan is an 79-year-old woman with a PNHx as below. The history she gave me varied somewhat from the H+P. She states she has had epigastric pain radiating to the back intermittently for years since she was diagnosed with PUD. It is usually relieved with milk and crackers. Last night she developed pain while breathing in the middle of the night and became dyspneic and anxious. She presented to the ER. Her morning medications were held and she is severely hypertensive. She has had more pain and normal troponins. She is pain free at rest currently. She does have RUQ pain when she takes a deep breath and is generally tender on the lower chest and upper abdomen area. The pain last night was described as midsternal. Of note, she was admitted to [facility] 10/2018 with cholecystitis and there was recommendation of a possible outpatient cholecystectomy. PAST MEDICAL HISTORY: 1. Atrial fibrillation. 2. CVA. 3. Hyperlipidemia. 4. Parkinson's disease with known neurogenic OH 5. Chronic diastolic congestive heart failure. 6. Pacemaker Cholecystitis 10/2018: ERCP no stones, patient had 2 periampullary divertic, papillotomy performed and pain resolved HIDA scan poor visualization. Patient apparently declined cholecystectomy EGD 10/2016: Prepyloric gastric ulcer 12/2017 repeat: Barretts esophagus, 2 cm hiatal hernia, gastritis, three ulcerated antral nodules with biopsies From Dr. Mittal's outpatient note "October 2016 with significant GI bleed with anemia and syncope due to longstanding severe orthostatic hypotension from Parkinson's disease, as well as nonsustained VT while on Tikosyn and subsequently her Tikosyn has been stopped. Her Coumadin and Eliquis had been stopped in the past given her significant falls in the past causing head laceration and prior head trauma as well as GI bleeding, but she has now restarted her oral anticoagulation with Pradaxa which she seems to be tolerating " PAST SURGICAL HISTORY: pacemaker Allergies: Penicillin 12/08/12 - Rash Zocor 07/17/16 Tikosyn 10/26/16 - NSVT allergy list reviewed on 12/01/2018 PMH: Medical Problems: Atrial Fibrillation Parkinson's Disease Back Pain Cerebrovascular Accident (CVA) - (2008) Peptic Ulcer Disease FH: Father: Heart Disease. Mother: Heart Disease. Siblings:1 - from Lung cancer. SH: Marital: .Lives With: Alone - lives downstairs from a family in her house.Occupation: Retired.Pt has never smoked cigarettes or used tobacco, was exposed to secondhand smoke. Reports occasional ETOH use, denies drug use, drinks coffee/tea occasionally. Pt does not exercise. Medications Active Medications: Acetaminophen (Tylenol Tab*) 650 mg PO Q4HR PRN PRN Reason: PAIN Amlodipine Besylate (Norvasc Tab*) 5 mg PO QAM [facility] Carbidopa/Levodopa (Sinemet 25/100 Tab(*)) 1 tab PO DAILY@1600 EDY Carbidopa/Levodopa (Sinemet 25/100 Tab(*)) 1.5 tab PO DAILY@1200 EDY Carbidopa/Levodopa (Sinemet 25/100 Tab(*)) 2 tab PO DAILY@0800 EDY Carbidopa/Levodopa (Sinemet 25/100 Tab(*)) 2 tab PO DAILY@2000 [facility] Fludrocortisone Acetate (Florinef Tab*) 0.1 mg PO DAILY EDY Hydroxyzine HCl (Atarax Tab*) 25 mg PO Q6H PRN PRN Reason: ANXIETY Lisinopril (Prinivil Tab*) 20 mg PO DAILY [facility] Metoprolol Tartrate (Lopressor Tab*) 50 mg PO BID EDY Pantoprazole Sodium (Protonix Tab*) 40 mg PO BID [facility] Sucralfate (Carafate*) 1 gm PO TID [facility] Home Medications: Carbidopa/Levodop 25/100 MG(*) [Sinemet 25/100 TAB(*)] 1 tab PO DAILY@1600 12/24 [History Confirmed 03/18/19] Carbidopa/Levodop 25/100 MG(*) [Sinemet 25/100 TAB(*)] 1.5 tab PO DAILY@1200 05/05 [History Confirmed 03/18/19] Carbidopa/Levodop 25/100 MG(*) [Sinemet 25/100 TAB(*)] 2 tab PO DAILY@0800 12/24 [History Confirmed 03/18/19] Carbidopa/Levodop 25/100 MG(*) [Sinemet 25/100 TAB(*)] 2 tab PO DAILY@12/24 [History Confirmed 03/18/19] Fludrocortisone Acetate TAB* [Florinef TAB*] 0.1 mg PO DAILY 12/24/17 [History Confirmed 03/18/19] Metoprolol Tartrate TAB* [Lopressor TAB*] 50 mg PO BID 12/24/17 [History Confirmed 03/18/19] Dabigatran CAP(NF) [Pradaxa CAP(NF)] 75 mg PO BID #60 cap 12/27/17 [Rx Confirmed 03/18/19] Acetaminophen [Acetaminophen ER] 650 mg PO Q4HR PRN 05/08/18 [History Confirmed 03/18/19] Omeprazole CAP (NF) [Prilosec CAP* 20 MG] 40 mg PO BID 05/08/18 [History Confirmed 03/18/19] amLODIPine TAB* [Norvasc 5 mg TAB*] 5 mg PO QAM 05/08/18 [History Confirmed 09/05] Lisinopril TAB* [Prinivil TAB*] 20 mg PO DAILY 02/24/19 [History Confirmed 03/18] hydrOXYzine HCL TAB* [Atarax 25 MG TAB*] 25 mg PO Q6H PRN 03/18/19 [History Confirmed 03/18/19] Review of Systems - Measurements Intake and Output: Intake and Output Last 24 Hours 03/16/19 03/17/19 03/18/19 03/19/19 06:59 06:59 06:59 06:59 Intake Total 0 Balance 0 Weight 122 lb 12.8 oz Intake: Oral 0 Other: # Bowel Movements 3 Estimated Stool Amount Small # Voids 2 - Review of Systems Constitutional Symptoms: Positive: Weakness Negative: Weight Gain, Weight Loss, Fever, Night Sweats Dermatology: Negative: Rash, Skin Lesions HEENT: Negative: Change in Hearing, Vertigo Eyes: Negative: Change in Vision, Double Vision Thyroid: Negative: Goiter, Thyroid Nodule, Cold Intolerance, Heat Intolerance, Sweatiness, Tremor, Frequent Defecation, Constipation, Palpitations, Weight Loss , Weight Gain Pulmonary: Positive: Shortness of Breath Negative: Cough, Sputum, Hemoptysis, Wheezing, Respiratory Distress, COPD, Asthma, Exercise Intolerance Cardiology: Positive: Shortness of Breath, Orthopnea Negative: Palpitations, Swelling of Ankles, Peripheral Vascular Dis, Edema, Faintness, Syncope, Claudication, Paroxysmal Nocturnal Dyspnea Gastroenterology: Positive: Abdominal Pain Negative: Vomiting, Anorexia, Blood in Stools, Change in Bowel Habits, Haematemesis, Melena Genital - Urinary: Negative: Dysuria, Hematuria Musculoskeletal: Negative: Joint Pain, Joint Stiffness Endocrinology: Negative: Obesity, Diabetes, Diabetic Foot Ulcers, Calluses Hematologic/Lymphatic: Positive: Use of Anticoagulant Negative: Use of Antiplatelet Drugs Neurology: Positive: Hx of Stroke\\TIA Negative: Change in Speech, Hx Seizures Psychiatry: Negative: Unusual Anxiety, Suicidal Ideation Allergic/Immunologic: Negative: Hx HIV, Immunocompromise Review of Systems Statement: All other review of systems negative, unless stated above. Objective Vital Signs: Temp Pulse Resp BP Pulse Ox 97.6 F 80 16 150/98 99 03/18/19 11:15 03/18/19 11:15 03/18/19 11:15 03/18/19 11:15 03/18/19 11:15 Oxygen Devices in Use Now: None Appearance: frail, elderly, very pleasant, not toxic appeaing Ears/Nose/Mouth/Throat: Clear Oropharnyx, Mucous Membranes Moist Neck: Trachea Midline Respiratory: Symmetrical Chest Expansion and Respiratory Effort, - - uncertain jvp, Cardiovascular: - - irregularly irregular, soft murmur, pacemaker site intact Abdominal: - - tender abdomen Lymphatic: No Cervical Adenopathy Extremities: No Clubbing, Cyanosis Skin: No Rash or Ulcers Neurological: Alert and Oriented x 3 Laboratory Results: 03/18/19 07:28 03/18/19 07:28 INR (Anticoag Therapy) 1.01 (0.82-1.09) 03/18/19 02:52 APTT 38.4 seconds (26.0-38.0) H 03/18/19 02:52 Total Bilirubin 0.50 mg/dL (0.2-1.0) 03/18/19 02:52 AST 9 U/L (13-39) L 03/18/19 02:52 ALT < 3 U/L (7-52) L 03/18/19 02:52 Alkaline Phosphatase 70 U/L (34-104) 03/18/19 02:52 B-Natriuretic Peptide 379 pg/mL (<=100) H 03/18/19 02:52 Total Protein 7.0 g/dL (6.4-8.9) 03/18/19 02:52 Albumin 4.2 g/dL (3.2-5.2) 03/18/19 02:52 Globulin 2.8 g/dL (2-4) 03/18/19 02:52 Albumin/Globulin Ratio 1.5 (1-3) 03/18/19 02:52 03/18/19 03/18/19 03/18/19 02:52 07:28 10:52 Troponin I 0.00 0.01 0.01 Diagnostic Imaging: cardiac chemical nuclear stress test 07/27/18 awith no evidence of ischemia nor infarction with normal LV function. Holter Monitor - (07/08/2017) Predominant rhythm atrial fibrillation, ventricular rate varies 59-139. There are frequent PVCs and ventricular trigeminy, as well as a 5 beat run of ventricular tachycardia. No symptoms recorded on diary. Echocardiogram - (03/12/2017) The patient was in atrial fibrillation throughout the study.Mild concentric LVH. Global LV wall wall motion and contractility are within normal limits.The estimated ejection fraction is 50-55%. The right venticular chamber size and systolic function are within normal limits. Pacer wires noted. The left atrium is moderate to severely dilated. The aortic valve leaflets are mildly thickened with normal function. Mild mitral regurgitation. Trace to mild tricuspid regurgitation. PA pressure 40 mmHg. Compared with echo of 10/23/16, ventricualr function is stable, the degree of MR previously mild to moderate,afib is new. Bubble study note performed as negative on RESHMA in 2007. T E E - (11/14/2008) Normal LV size and systolic function with what appears to be mild concentric LVH. Significant left atrial enlargement . Concern for intra-cardiac thrombus within the left atrial appendage with several lobes seen. Mild mitral regurgitation. Mild to moderate tricuspid regurgitation. E waves are measured, average is 0.86 m/sec , DT 178 m /msec. Aortic annulus measurement 1.99 cm. Sinus is 2.81 cm, ascending aorta 3.23 cm, no significant proximal aortic aneurysm. T E E - (12/22/2008) Normal LV size and systolic function with what appears to be mild concentric LVH. Significant left atrial enlargement. Mild right atrial enlargement. Mild right atrial enlargement. Mild right atrial enlargement. Mild to moderate tricuspid regurgitation. Mild to moderate mitral regurgitation. No convincing evidence of intracardiac thrombus, including within the left atrial appendage. Stress Test - (10/28/2016) No evidence of fixed or reversible perfusion defect is identified. Left ventricle is normal in size. Normal ejection fraction. Low risk. Echocardiogram - (10/23/2016) Mild concentric LVH. Normal wall motion and contractility, LVEF 55-60%. Mild diastolic dysfunction, impaired relaxation pattern.The right ventricular global systolic function is normal. The left atrium is moderately to severely dilated. The mitral valve leaflets are mildly thickened with mild to moderate MR ( closer to mild). Trace to mild tricuspid regurgitation. Compared with prior echo of January, EF is stable MR is new left.Left atrial enlargement is new. Stress Test - (10/28/2016) [facility] on date 10/28/16: No Lexiscan induced myocardia ischemia by EKG criteria. Nuclear poriton to be reported separately by radiology. [facility] [place] Report on date 10/28/16: No evidence of fixed or reversible perfusion defect is identified. Left ventricle is normal in size. Normal ejection fraction. Low risk. Echocardiogram - (11/14/2008) Normal left ventricular size with normal LVEF of 60% with mild concentric LVH. Visually estimated mild left atrial enlargement. Mild mitral regurgitation. Trace to mild tricuspid regurgitation with normal estimated PA systolic pressure of 24-29 mmHg. Patient has incidentally discovered atrial fibrillation. Echocardiogram - (06/26/2010) LV cavity is normal in size. Normal diastolic filling . Normal global wall motion. No regional wall motion abnormalities are seen in the visualized segments.Normal systolic global function. Calculated EF 65%. Normal cardiac chamber sizes. Trace to mild mitral regurgitation. Trace to mild tricuspid regurgitation. Mild to moderate PHTN with estimated PA systolic pressure of 37- 42 mmHg. Since the prior echocardiogram done at this facility on 11/14/08, pertinent change is mild to moderate PHTN is newly identified. Echocardiogram - (02/07/2012) LV cavity is normal in size. Diastolic filling with E to A reversal pattern. Normal global wall motion. Normal systolic global function. Calculated EF 58%. Normal cardiac chamber sizes. Structurally benign heart valves. Stress Test - (02/04/2011) Normal cardiac chemical nuclear stress test. No evidence of ischemia. No evidence of infarction . Normal left ventricular function. EF rest 66%; stress 77% ( normal).TID index 0.74 (normal). Stress Test - (11/06/2012) Normal cardiac chemical nuclear stress test. No evidence of ischemia. No evidence of infarction. Normal LVF. Compared to study of 01/2011, there is no change. EF 75% ( normal). TID index: 1.01 ( normal). Carotid Doppler - (10/29/2016) Minimal plaque bilaterally within carotid bulbs and proximal ICA's. No hemodynamically significant stenosis present. Antegrade flow in bilateral vertebral arteries. Cardiac Procedures: Pacemaker Implantation - (05/07/2016) Changed to [employer] [id number] MRI compatible device Pacemaker Implantation - (11/24/2007) Successful extraction of a dual chamber pacemaker lead system with complete removal of both atrial and ventricular leads. Successful implant of a temporary pacing wire. Pacemaker Implantation - (12/01/2007) EKG Data: ekg 03/18/2019: Afib, diffuse asymemtirc TW inversions suggestive of repolarization abnormalities, more prominent than admission but similar to prior ekgs Assessment/Plan If her pain was cardiac related, given the severity and prolonged nature we would have expected an abnormal troponin level. Given her complex GI history I strongly suspect that is the source of the pain. We don't need another stress test currently. We will restart her regular medications and monitor BP. BP with parkinsons related neurogenic OH is notoriously labile, particularly with supine hypertension and we will allow her SBP to be higher than a typical hypertensive patient. I also ordered a diet specifically with milk and crackers (which usually resolves her pain and would be more consistent with gastroesophageal than biliary - she has issues with both). I added carafate to the PPI and ordered a RUQ US. Will also check an echocardiogram (ordered) due to her dyspnea and elevated BNP to assess for changes from prior.
[2019-03-18] MEDS: Metoprolol Tartrate TAB* 50 mg PO SCH ×2 (14:02→21:15)
[2019-03-18] MEDS: Fludrocortisone Acetate TAB* 0.1 MG PO SCH (14:02)
[2019-03-18] MEDS: amLODIPine TAB* 5 MG PO SCH (14:03)
[2019-03-18] MEDS: Lisinopril TAB* 10 MG PO SCH (14:03)
[2019-03-18] MEDS: Pantoprazole TAB * 40 MG TAB PO SCH ×2 (14:04→21:15)
[2019-03-18] MEDS: Carbidopa/Levodop 25/100 MG TAB(*) PO SCH (15:18)
[2019-03-18] MEDS: Sucralfate TAB* 1 GM PO SCH ×2 (16:06→21:15)
--- NOTE | 2019-03-18 16:27 | ECHO ---
*[facility]* [place] [address] Fax #: [phone] Transthoracic Echocardiogram Patient: Liudmila Phelan : 1940 Study Date: 03/18/2019 Age: 79 Gender: F HR: 91 bpm Height: 59 in /149.9 cm BSA: 1.49 m^2 Weight: 121.7 lb /55.3 kg BMI: 24.6 kg/m^2 *Tannery Worker: * Jailyn Aburto RDCS RN *Referring Physician: * Washington Sequeira MD *Reading Physician: * Washintgon Sequeira MD Indications: SOB. History: Atrial fibrillation. Chronic diastolic heart failure. Orthostatic hypotension. Parkinson's disease. Risk factors: Dyslipidemia. Labs, prior tests, procedures, and surgery: Permanent pacemaker system implantation. Conclusions Summary: - Left ventricle: The cavity size is below normal. Wall thickness is mildly to moderately increased. Systolic function is normal. The estimated ejection fraction is 55-60%. Wall motion is normal; there are no regional wall motion abnormalities. - Right ventricle: The cavity size is normal. Pacer wire noted in the right ventricle. Systolic function is normal. - Left atrium: The atrium is moderately dilated. - Mitral valve: There is mild regurgitation. - Tricuspid valve: There is mild regurgitation. - Pulmonary arteries: Systolic pressure is within the normal range, estimated to be 26 mm Hg. Recommendations: Compared to prior study from 02/2017, PASP previously mildly elevated. Study data: Transthoracic echocardiogram. Procedure: Transthoracic echocardiography was performed. Image quality was fair. Complete 2D, spectral Doppler, and color flow Doppler. Location: Bedside. Patient status: Observation. Patient room number: 443-02. Rhythm: Paced rhythm. Findings Left ventricle: The cavity size is below normal. Wall thickness is mildly to moderately increased. Systolic function is normal. The estimated ejection fraction is 55-60%. Wall motion is normal; there are no regional wall motion abnormalities. Left ventricular diastolic function parameters are indeterminate. Right ventricle: The cavity size is normal. Pacer wire noted in the right ventricle. Systolic function is normal. Left atrium: The atrium is moderately dilated. Right atrium: The atrium is mildly dilated. Pacer wire noted in right atrium. Mitral valve: Is mildly calcified. The leaflets are mildly thickened. There is no evidence of stenosis. There is mild regurgitation. Aortic valve: The valve is trileaflet. The leaflets are mildly thickened. There is no evidence of stenosis. There is trace regurgitation. Tricuspid valve: The valve is structurally normal. The leaflets are normal thickness. There is no evidence of stenosis. There is mild regurgitation. Pulmonic valve: The valve is structurally normal. There is no evidence of stenosis. There is trace regurgitation. Aorta: Aortic root: The aortic root is not dilated. Ascending aorta: The ascending aorta is not dilated. Aortic arch: The aortic arch is not dilated. Pericardium: There is no significant pericardial effusion. Pulmonary arteries: The main pulmonary artery is normal-sized. Systolic pressure is within the normal range, estimated to be 26 mm Hg. Systemic veins: Inferior vena cava: The vessel is normal in size. There is (>= 50%) respiratory change in the IVC dimension. Measurements Left ventricle Value Ref Aortic valve Value Ref GWENDOLYN, LAX (L) 3.4 cm 3.8 - 5.2 Shirley diam, ED 2.0 cm ----- ESD, LAX 2.4 cm 2.2 - 3.5 Peak v, S 1.2 m/sec ----- FS, LAX 29 % 27 - 45 VTI, S 14.2 cm ----- PW, ED (H) 1.1 cm 0.6 - 0.9 Mean grad, S 2.0 mm Hg ----- IVS/PW, ED 1.21 Peak grad, S 6.0 mm Hg ----- E', lat shirley, TDI (L) 8.8 cm/sec >=10.0 LVOT/AV, VTI ratio 0.8 --- -- E/e', lat shirley, 11 TDI Mitral valve Value Ref E', med shirley, TDI 12.6 cm/sec >=7.0 Peak E 1 m/sec --- -- E/e', med shirley, 8 Decel time 188 ms ----- TDI Peak grad, D 4.0 mm Hg ----- E', avg, TDI 10.7 cm/sec E/e', avg, TDI 9 <=14 Pulmonic valve Value Ref Peak v, S 0.69 m/sec ----- LVOT Value Ref Peak grad, S 2.0 mm Hg ----- Peak simeon, S 0.7 m/sec VTI, S 11.4 cm Tricuspid valve Value Ref Mean grad, S 1 mm Hg TR peak v 2.4 m/sec <=2.8 Peak RV-RA grad, S 23 mm Hg ----- Ventricular septum Value Ref Max TR simeon 2.4 m/sec ----- IVS, ED (H) 1.4 cm 0.6 - 0.9 Aortic root Value Ref Right ventricle Value Ref Root diam 3.4 cm <3.8 GWENDOLYN, LAX 3.1 cm GWENDOLYN minor ax, A4C 2.8 cm 1.9 - 3.5 Ascending aorta Value Ref mid AAo AP diam, S 3.5 cm ----- Pressure, S 26 mm Hg Aortic arch Value Ref Left atrium Value Ref Arch diam 2.5 cm ----- AP dim, ES 3.70 cm 2.70 - 3.80 Pulmonary artery Value Ref ML dim, A4C 4.1 cm Pressure, S 26.0 mm Hg ----- SI dim, A4C 5.7 cm Vol/bsa, ES, 1-p 33 ml/m^2 11 - 40 Inferior vena cava Value Ref A4C Diam 1.4 cm ----- Vol/bsa, ES, A/L (H) 39 ml/m^2 16 - 34 Right atrium Value Ref ML dim, ES, A4C 3.8 cm 2.6 - 4.4 SI dim, ES, A4C 5.2 cm 3.4 - 5.3 Estimated RAP 3 mm Hg Legend: (L) and (H) tutu values outside specified reference range. Prepared and electronically signed by Washington Sequeira MD 03/18/2019 16:26
[2019-03-18 17:35] LABS: TSH (Thyroid Stimulating Horm) 0.5 mcIU/mL (0.34-5.60)
[2019-03-18] MEDS: CMC:Dabigatran CAP(NF) 75 MG CAP PO SCH (21:15)
[2019-03-19 06:32] LABS: Cholesterol 192 mg/dL; HDL Cholesterol 53.7 mg/dL; LDL Cholesterol 111 mg/dL; Triglycerides 135 mg/dL
[2019-03-19 08:54] LABS: ALT < 3 U/L (7-52); AST 14 U/L (13-39); Albumin 3.9 g/dL (3.2-5.2); Albumin/Globulin Ratio 1.2 (1-3); Alkaline Phosphatase 65 U/L (34-104); Anion Gap 11 mmol/L (2-11); Blood Urea Nitrogen 33 mg/dL (6-24); CO2 Carbon Dioxide 23 mmol/L (22-32); Calcium 10.6 mg/dL (8.6-10.3); Chloride 102 mmol/L (101-111); EGFR African American 64.4 (>60); EGFR Non-African American 53.2 (>60); Globulin 3.2 g/dL (2-4); Glucose 112 mg/dL (70-100); Indirect Bilirubin 0.5 mg/dL (0.3-1.0); Potassium 3.9 mmol/L (3.5-5.0); Sodium 136 mmol/L (135-145); Total Protein 7.1 g/dL (6.4-8.9)
[2019-03-19 09:26] LABS: Hematocrit 35 % (35-47); Mean Corpuscular HGB Conc 34 g/dL (31-36); Mean Corpuscular Hemoglobin 32 pg (27-31); Mean Corpuscular Volume 94 fL (80-97); Red Blood Count 3.73 10^6 /uL (3.70-4.87); Red Cell Distribution Width 16 % (10-15); White Blood Count 6.4 10^3/uL (3.5-10.8)
[2019-03-19 10:00] LABS: Platelet Count Platelets clumped. 10^3/uL (150-450)
[2019-03-19] MEDS: Metoprolol Tartrate TAB* 50 mg PO SCH (10:03)
[2019-03-19] MEDS: Sucralfate TAB* 1 GM PO SCH (10:03)
[2019-03-19] MEDS: CMC:Dabigatran CAP(NF) 75 MG CAP PO SCH (10:03)
[2019-03-19] MEDS: amLODIPine TAB* 5 MG PO SCH (10:04)
[2019-03-19] MEDS: Lisinopril TAB* 10 MG PO SCH (10:04)
[2019-03-19] MEDS: Pantoprazole TAB * 40 MG TAB PO SCH (10:04)
[2019-03-19] MEDS: Carbidopa/Levodop 25/100 MG TAB(*) PO SCH (10:04)
[2019-03-19] MEDS: Fludrocortisone Acetate TAB* 0.1 MG PO SCH (10:04)
--- NOTE | 2019-03-19 10:09 | PN ---
Subjective Date of Service: 03/19/19 Interval History: f/u epigastric pain patient now states her chief complaint was primarily dizziness she continues to have intermittent non-cardiac epigastric pain radiates to back worse with inspiration that is not clearly reproducible on palpation RUQ US did not show thickening of the gallbladder wall Medications Active Medications: Acetaminophen (Tylenol Tab*) 650 mg PO Q4HR PRN PRN Reason: PAIN Last Admin: 03/18/19 21:16 Dose: 650 mg Amlodipine Besylate (Norvasc Tab*) 5 mg PO QAM [facility] Last Admin: 03/18/19 14:03 Dose: 5 mg Carbidopa/Levodopa (Sinemet 25/100 Tab(*)) 1 tab PO DAILY@1600 [facility] Last Admin: 03/18/19 16:06 Dose: 1 tab Carbidopa/Levodopa (Sinemet 25/100 Tab(*)) 1.5 tab PO DAILY@1200 [facility] Last Admin: 03/18/19 14:01 Dose: 1.5 tab Carbidopa/Levodopa (Sinemet 25/100 Tab(*)) 2 tab PO DAILY@0800 [facility] Last Admin: 03/18/19 15:18 Dose: Not Given Carbidopa/Levodopa (Sinemet 25/100 Tab(*)) 2 tab PO DAILY@2000 [facility] Last Admin: 03/18/19 21:14 Dose: 2 tab Dabigatran (Pradaxa Cap(Nf)) 75 mg PO BID [facility] Last Admin: 03/18/19 21:15 Dose: 75 mg Fludrocortisone Acetate (Florinef Tab*) 0.1 mg PO DAILY [facility] Last Admin: 03/18/19 14:02 Dose: 0.1 mg Hydroxyzine HCl (Atarax Tab*) 25 mg PO Q6H PRN PRN Reason: ANXIETY Lisinopril (Prinivil Tab*) 20 mg PO DAILY [facility] Last Admin: 03/18/19 14:03 Dose: 20 mg Metoprolol Tartrate (Lopressor Tab*) 50 mg PO BID [facility] Last Admin: 03/18/19 21:15 Dose: 50 mg Pantoprazole Sodium (Protonix Tab*) 40 mg PO BID [facility] Last Admin: 03/18/19 21:15 Dose: 40 mg Sucralfate (Carafate*) 1 gm PO TID [facility] Last Admin: 03/18/19 21:15 Dose: 1 gm Objective Vital Signs: Temp Pulse Resp BP Pulse Ox 97.6 F 71 18 141/85 99 03/19/19 03:33 03/19/19 03:33 03/19/19 03:33 03/19/19 03:33 03/19/19 03:33 Oxygen Devices in Use Now: None Appearance: frail, elderly, very pleasant, not toxic appeaing Ears/Nose/Mouth/Throat: Clear Oropharnyx, Mucous Membranes Moist Neck: Trachea Midline Respiratory: Symmetrical Chest Expansion and Respiratory Effort, - - uncertain jvp, Cardiovascular: - - irregularly irregular, soft murmur, pacemaker site intact Abdominal: - - tender abdomen Lymphatic: No Cervical Adenopathy Extremities: No Clubbing, Cyanosis Skin: No Rash or Ulcers Neurological: Alert and Oriented x 3 Laboratory Results: 03/19/19 05:47 03/19/19 05:47 INR (Anticoag Therapy) 1.01 (0.82-1.09) 03/18/19 02:52 APTT 38.4 seconds (26.0-38.0) H 03/18/19 02:52 Total Bilirubin 0.60 mg/dL (0.2-1.0) 03/19/19 05:47 Direct Bilirubin 0.10 mg/dL (0.03-0.18) 03/19/19 05:47 Indirect Bilirubin 0.5 mg/dL (0.3-1.0) 03/19/19 05:47 AST 14 U/L (13-39) 03/19/19 05:47 ALT < 3 U/L (7-52) L 03/19/19 05:47 Alkaline Phosphatase 65 U/L (34-104) 03/19/19 05:47 B-Natriuretic Peptide 379 pg/mL (<=100) H 03/18/19 02:52 Total Protein 7.1 g/dL (6.4-8.9) 03/19/19 05:47 Albumin 3.9 g/dL (3.2-5.2) 03/19/19 05:47 Globulin 3.2 g/dL (2-4) 03/19/19 05:47 Albumin/Globulin Ratio 1.2 (1-3) 03/19/19 05:47 Triglycerides 135 mg/dL 03/19/19 05:47 Cholesterol 192 mg/dL 03/19/19 05:47 LDL Cholesterol 111 mg/dL 03/19/19 05:47 HDL Cholesterol 53.7 mg/dL 03/19/19 05:47 TSH 0.50 mcIU/mL (0.34-5.60) 03/18/19 07:28 03/18/19 03/18/19 03/18/19 02:52 07:28 10:52 Troponin I 0.00 0.01 0.01 03/18/19 14:00 Troponin I 0.01 Diagnostic Imaging: cardiac chemical nuclear stress test 07/27/18 awith no evidence of ischemia nor infarction with normal LV function. Holter Monitor - (07/08/2017) Predominant rhythm atrial fibrillation, ventricular rate varies 59-139. There are frequent PVCs and ventricular trigeminy, as well as a 5 beat run of ventricular tachycardia. No symptoms recorded on diary. Echocardiogram - (03/12/2017) The patient was in atrial fibrillation throughout the study.Mild concentric LVH. Global LV wall wall motion and contractility are within normal limits.The estimated ejection fraction is 50-55%. The right venticular chamber size and systolic function are within normal limits. Pacer wires noted. The left atrium is moderate to severely dilated. The aortic valve leaflets are mildly thickened with normal function. Mild mitral regurgitation. Trace to mild tricuspid regurgitation. PA pressure 40 mmHg. Compared with echo of 10/23/16, ventricualr function is stable, the degree of MR previously mild to moderate,afib is new. Bubble study note performed as negative on [facility]MA in 2007. T E E - (11/14/2008) Normal LV size and systolic function with what appears to be mild concentric LVH. Significant left atrial enlargement . Concern for intra-cardiac thrombus within the left atrial appendage with several lobes seen. Mild mitral regurgitation. Mild to moderate tricuspid regurgitation. E waves are measured, average is 0.86 m/sec , DT 178 m /msec. Aortic annulus measurement 1.99 cm. Sinus is 2.81 cm, ascending aorta 3.23 cm, no significant proximal aortic aneurysm. T E E - (12/22/2008) Normal LV size and systolic function with what appears to be mild concentric LVH. Significant left atrial enlargement. Mild right atrial enlargement. Mild right atrial enlargement. Mild right atrial enlargement. Mild to moderate tricuspid regurgitation. Mild to moderate mitral regurgitation. No convincing evidence of intracardiac thrombus, including within the left atrial appendage. Stress Test - (10/28/2016) No evidence of fixed or reversible perfusion defect is identified. Left ventricle is normal in size. Normal ejection fraction. Low risk. Echocardiogram - (10/23/2016) Mild concentric LVH. Normal wall motion and contractility, LVEF 55-60%. Mild diastolic dysfunction, impaired relaxation pattern.The right ventricular global systolic function is normal. The left atrium is moderately to severely dilated. The mitral valve leaflets are mildly thickened with mild to moderate MR ( closer to mild). Trace to mild tricuspid regurgitation. Compared with prior echo of January, EF is stable MR is new left.Left atrial enlargement is new. Stress Test - (10/28/2016) [facility] Stress portion on date 10/28/16: No Lexiscan induced myocardia ischemia by EKG criteria. Nuclear poriton to be reported separately by radiology. [facility] Radiology Report on date 10/28/16: No evidence of fixed or reversible perfusion defect is identified. Left ventricle is normal in size. Normal ejection fraction. Low risk. Echocardiogram - (11/14/2008) Normal left ventricular size with normal LVEF of 60% with mild concentric LVH. Visually estimated mild left atrial enlargement. Mild mitral regurgitation. Trace to mild tricuspid regurgitation with normal estimated PA systolic pressure of 24-29 mmHg. Patient has incidentally discovered atrial fibrillation. Echocardiogram - (06/26/2010) LV cavity is normal in size. Normal diastolic filling . Normal global wall motion. No regional wall motion abnormalities are seen in the visualized segments.Normal systolic global function. Calculated EF 65%. Normal cardiac chamber sizes. Trace to mild mitral regurgitation. Trace to mild tricuspid regurgitation. Mild to moderate PHTN with estimated PA systolic pressure of 37- 42 mmHg. Since the prior echocardiogram done at this facility on 11/14/08, pertinent change is mild to moderate PHTN is newly identified. Echocardiogram - (02/07/2012) LV cavity is normal in size. Diastolic filling with E to A reversal pattern. Normal global wall motion. Normal systolic global function. Calculated EF 58%. Normal cardiac chamber sizes. Structurally benign heart valves. Stress Test - (02/04/2011) Normal cardiac chemical nuclear stress test. No evidence of ischemia. No evidence of infarction . Normal left ventricular function. EF rest 66%; stress 77% ( normal).TID index 0.74 (normal). Stress Test - (11/06/2012) Normal cardiac chemical nuclear stress test. No evidence of ischemia. No evidence of infarction. Normal LVF. Compared to study of 01/2011, there is no change. EF 75% ( normal). TID index: 1.01 ( normal). Carotid Doppler - (10/29/2016) Minimal plaque bilaterally within carotid bulbs and proximal ICA's. No hemodynamically significant stenosis present. Antegrade flow in bilateral vertebral arteries. Cardiac Procedures: Pacemaker Implantation - (05/07/2016) Changed to ElectroJet [id number] MRI compatible device Pacemaker Implantation - (11/24/2007) Successful extraction of a dual chamber pacemaker lead system with complete removal of both atrial and ventricular leads. Successful implant of a temporary pacing wire. Pacemaker Implantation - (12/01/2007) EKG Data: ekg 03/18/2019: Afib, diffuse asymemtirc TW inversions suggestive of repolarization abnormalities, more prominent than admission but similar to prior ekgs Assessment/Plan Patient can be discharged from a cardiac standpoint
[2019-03-19 10:28] VITALS: BP 140/85
--- NOTE | 2019-03-19 13:07 | DS ---
CC: Dr. Scales * DISCHARGE SUMMARY: DATE OF ADMISSION: 03/18/19 DATE OF DISCHARGE: 03/19/19 PRIMARY CARE PROVIDER: Dr. Scales. ATTENDING PHYSICIAN: Dr. Smith *(dictated by Zina Cesar NP). PRIMARY DIAGNOSIS: Atypical chest pain. SECONDARY DIAGNOSES: 1. Atrial fibrillation. 2. Cerebrovascular accident. 3. Hyperlipidemia. 4. Orthostatic hypertension. 5. Parkinson's disease. 6. Chronic diastolic heart failure. 7. Paroxysmal ventricular tachycardia CONSULTATIONS WHILE IN THE HOSPITAL: Dr. Sequeira, Cardiology. PROCEDURES WHILE IN THE HOSPITAL: No procedures. STUDIES WHILE IN THE HOSPITAL: 1. EKG: Impression: Atrial fibrillation, mild T-wave inversions diffusely. 2. Chest x-ray: Impression: No acute cardiopulmonary process. 3. EKG: Atrial fibrillation, T-wave inversions V2 through V6. 4. Transthoracic echocardiogram: Left ventricle: The cavity size is normal. Wall thickness is mildly to moderately increased. Systolic function is normal. The estimated ejection fraction is 55% to 60%. The wall motion is normal. There is no regional wall motion abnormalities. Right Ventricle: The cavity size normal is normal. Pacer wire noted in right ventricle. Systolic function is normal. Left Atrium: The atrium is moderately dilated. Mitral Valve: There is mild regurgitation. Tricuspid Valve: There is mild regurgitation. Pulmonary Arteries: Systolic pressure is within normal range. Compared to prior study from February 2017, PASP previously mildly elevated. 5. Gallbladder ultrasound: Impression: Cholelithiasis with a positive sonographic Quigley sign, without pericolic fluid or gallbladder wall thickening. This is indeterminant for sonographic features of acute cholecystitis. DISCHARGE HOME MEDICATIONS: Continued home medications: 1. Tylenol 650 mg p.o. q.4 hours p.r.n. pain. 2. Amlodipine 5 mg p.o. daily. 3. Sinemet 25/100 2 tabs in the morning, 1-1/2 tabs at lunch, 1 tab at dinner, and 2 tabs at bedtime. 4. Pradaxa 75 mg p.o. daily. 5. Florinef 0.1 mg p.o. daily. 6. Hydroxyzine 25 mg p.o. q.6 hours p.r.n. anxiety. 7. Lisinopril 20 mg p.o. daily. 8. Metoprolol 50 mg p.o. b.i.d. 9. Omeprazole 40 mg p.o. b.i.d. New home medications: Carafate 1 g p.o. t.i.d. HISTORY OF PRESENT ILLNESS/HOSPITAL COURSE: Ms. Phelan is an 79-year-old female with past medical history significant for atrial fibrillation, CVA, hyperlipidemia, orthostatic hypotension, Parkinson's, diastolic congestive heart failure, paroxysmal ventricular tachycardia, who presented to the emergency department on 03/18/19 with complaints of chest pain. Please see history and physical dictated by Kristin Fall NP, for complete summary of events leading up to hospitalization, but in short, patient presents to the emergency room with approximately 1 hour of chest pain. While in the emergency room, she was noted to have normal vitals with occasional elevated blood pressure reading. Her labs are unremarkable and she had an unremarkable chest x -ray, but given the patient's symptoms, family history and personal history, she was admitted to the hospital for further evaluation. During this hospital stay, the patient has remained on telemetry. She has been in AFib, mostly rate controlled with occasional increase into the 120s with activity. The patient had repeat troponins, all of which were 0.01. The patient had repeat CBCs, which were unremarkable. The patient had repeat CMPs, which were also unremarkable with the exception of a slightly elevated creatinine, which appears to be near the patient's baseline. The plan initially was for the patient to undergo a stress test given her history. On the day his stress test was to take place, the patient expressed increase in pain and overall unwell feeling. Therefore, Cardiology was consulted and the stress test was put on hold. Dr. Sequeira was kind enough to see this patient and reviewed her medical history. Given the review of her history and his assessment, he strongly suspected that her pain was GI related given her GI history. Also, given the fact that given the severity of her pain and the prolonged nature, we would have seen some elevated troponins. Therefore , the stress test was canceled per his recommendations. He also ordered a gallbladder ultrasound, whose results are as above. He also provided her with a diet, specifically milk and crackers, which she reports worked previously and this did relieve her pain. Finally, he also added Carafate to her medication regimen. Today, on exam, the patient reports she was pain-free last night. She reports the pain is improved today, but still mildly there. She reports pain is in the epigastric region. She reports pain is improved with food, but she had not had breakfast yet; therefore, she still has some pain. The patient is only slightly tender to the epigastric region. I cannot elicit a Quigley's sign. The patient is stable for discharge home. Vital Signs: Temp 97.6, HR 71, RR 18, O2 saturation 99% on room air, BP 141/85. REVIEW OF SYSTEMS: The patient reports epigastric pain "11/25." The patient denies nausea, diarrhea, chest pain/pressure, shortness of breath, palpitations , dizziness, diaphoresis. A 14-point of review of systems completed, the rest were negative. PHYSICAL EXAM: General: Mr. Phelan is a 79-year-old female who is sitting in bed. Appears to be in no acute distress. Appears stated age. HEENT: Oral mucosa moist without lesion. Posterior pharynx is clear. Sclera is without icterus. Neck: Supple. Cardiac: S1, S2 present. No murmurs, rubs, or gallops. Irregular rhythm, regular rate. Respiratory: Lungs are clear. No accessory muscle use. Good aeration. No wheezes, rhonchi, or rubs. Abdomen: Abdomen is soft, nondistended, no rebound tenderness. Bowel sounds are normoactive. The patient has mild tenderness to palpation of epigastric region. I cannot elicit a Quigley sign. Extremities: No edema. No clubbing or cyanosis. Pedal pulses are 2+ bilaterally. Musculoskeletal: No pain or deformities. Skin: Grossly intact. Neuro: Exam was grossly intact. No focal deficits or weakness. LABORATORY DATA: WBC 6.4, hemoglobin 12.0, hematocrit 35. Sodium 136, potassium 3.9, chloride 102, carbon dioxide 23, BUN 33, creatinine 1.00, glucose 112, total bili of 0.60, direct bili is 0.10, indirect bili is 0.5, AST 15, ALT less than 3, alk phos 65. DISCHARGE PLAN/FOLLOWUP: 1. Atypical chest pain: The patient presented with atypical chest pain and was evaluated by Cardiology. We have a high suspicion that this chest pain given its location, the patient's significant GI history, and negative cardiac workup that it is GI related. In addition, the ultrasound report of her gallbladder also supports this suspicion. Given the patient's pain is improved with food specifically crackers and milk there could also be a ulcer component. The patient also has no concerning findings in her liver function tests as they are all within normal limits. Given this, I would encourage the patient follow up with General Surgery for an outpatient elective cholecystectomy if they deem necessary. In addition, I think the patient would benefit from a possible EGD with her radiologic tech, Dr. Bearden. I will defer these referrals to her primary care Dr. Scales who I have set up an appointment with her on 03/23/19. 2. Atrial fibrillation: The patient is continue her home medications of metoprolol and Pradaxa. 3. Cerebrovascular accident: The patient should continue her home medications of Pradaxa. She is free from any neurological findings. 4. Hyperlipidemia: The patient is not currently on a statin. I did obtain fasting lipids on this patient while she was hospitalized and they are as follows: Triglycerides 135, cholesterol 192, LDL 111, HDL 53.7. I will defer the initiation of the statin to her primary care provider. 5. Orthostatic hypotension: The patient has orthostatic hypotension, which is attributed to her Parkinson's disease and she follows closely with Dr. Mittal. I would encourage the patient to continue her home medications of Florinef and follow up with Dr. Mittal as he previously as recommended. 6. Parkinson's disease. The patient should continue her home Sinemet. 7. Chronic diastolic heart failure: The patient's BNP was slightly elevated at 379. The patient does not appear to be in acute exacerbation of CHF as she is satting well on room air. She is free from crackles. She is free from edema. She denies shortness of breath. Echo was obtained and is unchanged from previous. I would encourage the patient to continue her home medications and follow up with her primary care. I would also encourage the patient to weigh herself daily and bring these weights to her primary care provider and/or call if she has a greater than 3- pound weight gain in 1 day. 8. Paroxysmal ventricular tachycardia: The patient has been free from ventricular tachycardia while here in the hospital on telemetry. The patient has a pacemaker. I will encourage patient to follow up with Dr. Mittal as previously recommended. 9. Followup: The patient should follow up with Dr. Scales on 03/23/19 at 10:40 on the [facility] location. I have set up this appointment for her. At this time, I would encourage her and Dr. Scales to discuss referrals to General Surgery and/or GI. 10. Education: The patient was educated on signs and symptoms of new or worsening condition and when return to the emergency department; the patient stated understanding. This is a summarized report of a complex medical history and hospital stay. For further details, please see the entire medical record. TIME SPENT: Approximately 35 minutes was spent on this admission; greater than half of that spent face to face to the patient discussing discharge plans and instructions. This plan was discussed with my attending, Dr. Smith, who agrees with my plan of care. ZINA CESAR NP [id number]/[facility] #: [id number]
== END 2019-03-19 12:20 | disposition home or self-care (01) ==
LOC: ED 01:35 → MEDTELE 04:55
PROVIDERS: ADMIT Hospitalist; ATTEND Hospitalist
DX: R07.89 Other chest pain (principal); I48.91 Unspecified atrial fibrillation; Z86.73 Personal history of transient ischemic attack (TIA), and cerebral infarction without residual deficits; E78.5 Hyperlipidemia, unspecified; I11.0 Hypertensive heart disease with heart failure; I50.32 Chronic diastolic (congestive) heart failure; G20 Parkinson's disease; I47.2 Ventricular tachycardia; Z79.899 Other long term (current) drug therapy; Z79.01 Long term (current) use of anticoagulants; I95.1 Orthostatic hypotension; Z88.0 Allergy status to penicillin; Z88.8 Allergy status to other drugs, medicaments and biological substances; Z95.0 Presence of cardiac pacemaker
CPT/HCPCS: 36415; 71045; 76705; 80048; 80053; 80061; 82248; 83605; 83690; 83735; 83880; 84443; 84484; 85025; 85027; 85610; 85730; 93005; 93306; 96374; 99284; A9270-GY; G0378; J2785; J3490

== ENCOUNTER 2019-06-25 18:57 | Emergency (ER) | payer MEDICARE ==
[2019-06-25] MEDS ORDERED: NS 0.9% 1000 ML** 1,000 ML IV ONE (19:09)
[2019-06-25 19:38] LABS: ABS Lymphocytes 1.1 10^3/ul (1.0-4.8); ABS Monocytes 0.6 10^3/ul (0-0.8); ABS Neutrophils 4.5 10^3/ul (1.5-7.7); Eosinophil % 0.5 %; Hematocrit 33 % (35-47); Hemoglobin 10.9 g/dL (12.0-16.0); Lymphocyte % 17.5 %; Mean Corpuscular HGB Conc 34 g/dL (31-36); Mean Corpuscular Hemoglobin 32 pg (27-31); Mean Corpuscular Volume 95 fL (80-97); Mean Platelet Volume 8.2 fL (7.4-10.4); Nucleated Red Blood Cells % 0.1; Platelet Count 280 10^3/uL (150-450); Red Blood Count 3.43 10^6 /uL (3.70-4.87); Red Cell Distribution Width 14 % (10-15); White Blood Count 6.3 10^3/uL (3.5-10.8)
--- NOTE | 2019-06-25 19:41 | ED ---
GI/ HPI - HPI Summary HPI Summary: 79 year old female presents to the ED with diarrhea for 4 weeks, approximately 5 times a day. The consistency of her stool was more solid today compared to the past several days. Patient denies fever, ABD pain, and N/V. She fell down yesterday in the kitchen when she failed to grab the kitchen counter. While she fell on her back, she reports no pain. She fell out of her chair today but reports no LOC. She reports chronic groin pain secondary to a fall sustained last year. Patient reports AFib for the last 5 years, which sometimes bothers her because it makes her exhausted and weak. - History of Current Complaint Chief Complaint: EDNauseaVomitDiarrh Time Seen by Provider: 06/25/19 19:09 Stated Complaint: WEAKNESS PER EMS Hx Obtained From: Patient Onset/Duration: Started Weeks Ago, Still Present Timing: Lasting Weeks Severity: Moderate Current Severity: Moderate Pain Intensity: 7 Location of Pain: Groin Pain Characteristics: Aching Associated Signs and Symptoms: Positive: Weakness, Diarrhea. Negative: Syncope - near syncope, Nausea, Vomiting, Fever Aggravating Factor(s): Nothing Alleviating Factor(s): Nothing - Additional Pertinent History Primary Care Physician: [id number] - Allergy/Home Medications Allergies/Adverse Reactions: Allergies Allergy/AdvReac Type Severity Reaction Status Date / Time dofetilide [From Tikosyn] Allergy Unknown Verified 03/18/19 01:45 Reaction Details Penicillins Allergy Hives Verified 03/18/19 01:45 crystal light Allergy Airway Uncoded 11/28/18 18:00 Obstruction Home Medications: Home Medications Escitalopram * [Lexapro 5 mg (NF)] 5 mg PO DAILY 06/25/19 [History Confirmed 04/05] PMH/Surg Hx/FS Hx/Imm Hx Endocrine/Hematology History: Reports: Hx Anticoagulant Therapy, Hx Blood Transfusions - current visit, Hx Anemia - current Denies: Hx Diabetes, Hx Thyroid Disease Cardiovascular History: Reports: Hx Hypertension, Hx Pacemaker/ICD - RIGHT SIDE , Hx Syncope, Other Cardiovascular Problems/Disorders - RECENT STOKE 3 WEEKS AGO Denies: Hx Angina, Hx Coronary Artery Disease, Hx Hypercholesterolemia, Hx Myocardial Infarction, Hx Peripheral Vascular Disease Respiratory History: Denies: Hx Asthma, Hx Chronic Obstructive Pulmonary Disease (COPD), Other Respiratory Problems/Disorders GI History: Reports: Hx Gastroesophageal Reflux Disease - HISTORY OF, Hx Ulcer - OCTOBER 2016 Musculoskeletal History: Reports: Hx Arthritis, Hx Rheumatoid Arthritis, Hx Back Problems Denies: Hx Osteoporosis Sensory History: Reports: Hx Contacts or Glasses Denies: Hx Hearing Aid Opthamlomology History: Reports: Hx Contacts or Glasses Neurological History: Reports: Hx Migraine, Hx Transient Ischemic Attacks (TIA) , Other Neuro Impairments/Disorders - HISTORY OF PARKINSONS Denies: Hx Headaches, Hx Seizures - Cancer History Cancer Type, 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 - Surgical History Surgery Procedure, Year, and Place: skin, hysterectomy- one ovary; appe; pacemaker; heart scraped after infection Hx Anesthesia Reactions: No - Immunization History Date of Tetanus Vaccine: UTD Date of Influenza Vaccine: 2015 Infectious Disease History: No Infectious Disease History: Denies: Hx Clostridium Difficile, Hx Hepatitis, Hx Human Immunodeficiency Virus (HIV), Hx of Known/Suspected MRSA, Hx Shingles, Hx Tuberculosis, Hx Known/ Suspected VRE, Hx Known/Suspected VRSA, History Other Infectious Disease, Traveled Outside the [place] in Last 30 Days - Family History Known Family History: Positive: Cardiac Disease, Hypertension, Other - [place] - Social History Alcohol Use: None Hx Substance Use: No Substance Use Type: Reports: None Hx Tobacco Use: No Smoking Status (MU): Never Smoked Tobacco Review of Systems - ROS Summary Review of Systems Summary: Home Medications Medication Instructions Recorded Confirmed Type Carbidopa/Levodop 25/100 MG(*) 1 tab PO DAILY@1600 12/24/17 03/18/19 History [Sinemet 25/100 TAB(*)] Carbidopa/Levodop 25/100 MG(*) 1.5 tab PO DAILY@1200 12/24/17 03/18/19 History [Sinemet 25/100 TAB(*)] Carbidopa/Levodop 25/100 MG(*) 2 tab PO DAILY@0800 12/24/17 03/18/19 History [Sinemet 25/100 TAB(*)] Carbidopa/Levodop 25/100 MG(*) 2 tab PO DAILY@199912/24/17 03/18/19 History [Sinemet 25/100 TAB(*)] Fludrocortisone Acetate TAB* 0.1 mg PO DAILY 12/24/17 03/18/19 History [Florinef TAB*] Metoprolol Tartrate TAB* 50 mg PO BID 12/24/17 03/18/19 History [Lopressor TAB*] Dabigatran CAP(NF) [Pradaxa 75 mg PO BID #60 cap 12/27/17 03/18/19 Rx CAP(NF)] Acetaminophen [Acetaminophen ER] 650 mg PO Q4HR PRN 05/08/18 03/18/19 History Omeprazole CAP (NF) [Prilosec CAP* 40 mg PO BID 05/08/18 03/18/19 History 20 MG] amLODIPine TAB* [Norvasc 5 mg TAB*] 5 mg PO QAM 05/08/18 03/18/19 History Lisinopril TAB* [Prinivil TAB 10 20 mg PO DAILY 02/24/19 03/18/19 History MG*] hydrOXYzine HCL TAB* [Atarax 25 MG 25 mg PO Q6H PRN 03/18/19 03/18/19 History TAB*] Sucralfate TAB* [Carafate*] 1 gm PO TID 30 Days #90 tab 03/19/19 Rx Positive: Fatigue. Negative: Fever Positive: Diarrhea. Negative: Abdominal Pain, Vomiting, Nausea Positive: Arthralgia - Groin pain secondary to fall Positive: Weakness All Other Systems Reviewed And Are Negative: Yes Physical Exam - Summary Physical Exam Summary: General: Well-developed, Well-nourished female. No acute distress. HEENT: Normocephalic, Atraumatic. Eyes: Conjuctiva normal, PERRL. Ears: TMs within normal limits. Nares: (-) discharge, (-) erythema. Oropharynx: Clear, mucous membranes moist, (-) exudates. Neck: Soft, FROM, (-) lymphadenopathy, (-) thyromegaly, (-) JVD. Cardiovascular: Irregularly irregular rhythm, (-) murmur. Lungs: Clear to auscultation bilaterally (-) wheezes, (-) rales, (-) rhonchi. Abdomen: Soft, non-tender, non-distended, (-) organomegaly, normal bowel sounds. Back: (-) CVA tenderness Extremities: No edema. Skin: Warm, dry, (-) rash. Neuro: Alert and oriented x3, no focal deficits. Psychiatric: Mood normal, affect normal. Triage Information Reviewed: Yes Vital Signs On Initial Exam: Initial Vitals Temp Pulse Resp BP Pulse Ox 97.4 F 85 18 157/95 96 06/25/19 19:06 06/25/19 19:06 06/25/19 19:06 06/25/19 19:06 06/25/19 19:06 Vital Signs Reviewed: Yes Procedures - Sedation Patient Received Moderate/Deep Sedation with Procedure: No Diagnostics - Vital Signs Vital Signs Temp Pulse Resp BP Pulse Ox 06/25/19 19:06 97.4 F 85 18 157/95 96 - Laboratory Result Diagrams: 06/25/19 19:30 06/26/19 00:39 Lab Statement: Any lab studies that have been ordered have been reviewed, and results considered in the medical decision making process. GIGU Course/Dx - Course Course Of Treatment: 79-year-old female presents with over 3 weeks of diarrhea. Now has hypokalemia. Repeat labs verified low potassium. Patient notes she had decreased bowel movements today and they were more formed. Patient given a total of 4 K runs. Tolerated oral potassium. Repeat potassium 2.8. Patient started on potassium replacement 3 times a day for 7 days. Follow up with PCP. Advised Imodium C. difficile negative. Patient discharged home. Follow up sooner for any worsening symptoms. - Diagnoses Provider Diagnoses: Hypokalemia, Diarrhea Discharge ED - Sign-Out/Discharge Documenting (check all that apply): Patient Departure - discharge - Discharge Plan Condition: Stable Disposition: HOME Prescriptions: Potassium Chlor TAB* [Potassium Chlor TAB 20 MEQ*] 20 meq PO TID #21 tab.er Patient Education Materials: Hypokalemia (ED), Acute Diarrhea (ED) Referrals: Yisel Scales MD [Primary Care Provider] - Additional Instructions: Follow up with your primary care provider in 2-3 days. PLEASE TAKE YOUR PRESCRIBED MEDICATIONS. Return to the emergency room if you experience new or worsened symptoms. - Billing Disposition and Condition Condition: STABLE Disposition: Home - Attestation Statements Document Initiated by Scribe: Yes Documenting Scribe: Earl Kenney Provider For Whom Scribe is Documenting (Include Credential): Starla Jeter MD. Scribe Attestation: Earl Hernandes, scribed for Starla Jeter MD. on 06/26/19 at 0352. Scribe Documentation Reviewed: Yes Provider Attestation: The documentation as recorded by the scribe, Earl Kenney accurately reflects the service I personally performed and the decisions made by me, Starla Jeter MD. Status of Scribe Document: Viewed
[2019-06-25] MEDS ORDERED: KCL 10 MEQ/50 ML IVPREMIX* 10 MEQ/50 ML BAG ONE (19:52)
[2019-06-25 19:56] LABS: Troponin I 0.01 ng/mL (<0.04)
[2019-06-25] MEDS: KCL 10 MEQ/50 ML IVPREMIX* 10 MEQ/50 ML BAG IV SCH ×3 (19:58→22:17)
[2019-06-25 20:00] LABS: INR 1.22 (0.82-1.09)
[2019-06-25 20:01] LABS: ALT < 3 U/L (7-52); AST 8 U/L (13-39); Albumin/Globulin Ratio 1.5 (1-3); Alkaline Phosphatase 56 U/L (34-104); BUN/Creatinine Ratio 18.9 (8-20); Blood Urea Nitrogen 33 mg/dL (6-24); C Reactive Protein 3.33 mg/L (<8.01); CO2 Carbon Dioxide 25 mmol/L (22-32); Calcium 8.7 mg/dL (8.6-10.3); Chloride 103 mmol/L (101-111); EGFR African American 33.8 (>60); EGFR Non-African American 27.9 (>60); Globulin 2.7 g/dL (2-4); Glucose 99 mg/dL (70-100); Sodium 139 mmol/L (135-145); Total Protein 6.7 g/dL (6.4-8.9)
[2019-06-25 20:04] LABS: Anion Gap 11 mmol/L (2-11); Potassium 2.3 mmol/L (3.5-5.0)
[2019-06-25 21:39] LABS: Urine Appearance Clear; Urine Bacteria 1+ (Absent); Urine Bilirubin Negative (Negative); Urine Blood Negative (Negative); Urine Color Yellow; Urine Glucose Negative (Negative); Urine Ketones Trace (Negative); Urine Nitrite Negative (Negative); Urine Protein Negative (Negative); Urine Red Blood Cell 1+(3-5/hpf) (Absent); Urine Specific Gravity 1.017 (1.010-1.030); Urine Squamous Epithelial Cell Present (Absent); Urine Urobilinogen Negative (Negative); Urine White Blood Cell Trace(0-5/hpf) (Absent)
[2019-06-26] MEDS ORDERED: KCL 10 MEQ/50 ML IVPREMIX* 10 MEQ/50 ML BAG IV ONE (00:38)
[2019-06-26 01:01] LABS: Calcium 8.6 mg/dL (8.6-10.3); Potassium 2.8 mmol/L (3.5-5.0)
[2019-06-26 01:07] LABS: BUN/Creatinine Ratio 21.3 (8-20); EGFR African American 43.3 (>60); EGFR Non-African American 35.8 (>60)
[2019-06-26] MEDS ORDERED: Potassium Chlor TAB* 20 MEQ TAB.ER PO ONE (01:13)
[2019-06-26] MEDS ORDERED: Loperamide LIQ* 2 MG/10 ML UDC PO ONE (01:51)
[2019-06-26] MEDS ORDERED: ACETAMINOPHEN 650 MG PO PRN (01:52)
[2019-06-26 03:40] VITALS: BP 155/106
[2019-06-26] MEDS ORDERED: Carbidopa/Levodop 25/100 MG TAB(*) PO SCH ×4 (08:00→20:00)
[2019-06-26] MEDS ORDERED: Lisinopril TAB* 10 MG PO SCH (09:00)
[2019-06-26] MEDS ORDERED: Dabigatran CAP(NF) 75 MG CAP PO SCH (09:00)
[2019-06-26] MEDS ORDERED: Sucralfate TAB* 1 GM PO SCH (09:00)
[2019-06-26] MEDS ORDERED: Escitalopram * 5 MG TAB PO SCH (09:00)
[2019-06-26] MEDS ORDERED: Omeprazole CAP (NF) 20 MG CAP.DR PO SCH (09:00)
[2019-06-26] MEDS ORDERED: amLODIPine TAB* 5 MG PO SCH (09:00)
[2019-06-26] MEDS ORDERED: Metoprolol Tartrate TAB* 50 mg PO SCH (09:00)
[2019-06-26] MEDS ORDERED: Fludrocortisone Acetate TAB* 0.1 MG PO SCH (09:00)
== END 2019-06-26 03:41 | disposition home or self-care (01) ==
LOC: ED 18:57
DX: R19.7 Diarrhea, unspecified (principal); E87.6 Hypokalemia; D64.9 Anemia, unspecified; I10 Essential (primary) hypertension; K21.9 Gastro-esophageal reflux disease without esophagitis; M06.9 Rheumatoid arthritis, unspecified; G20 Parkinson's disease; Z86.73 Personal history of transient ischemic attack (TIA), and cerebral infarction without residual deficits; Z90.710 Acquired absence of both cervix and uterus; Z95.0 Presence of cardiac pacemaker; Z79.899 Other long term (current) drug therapy; Z88.0 Allergy status to penicillin; Z88.8 Allergy status to other drugs, medicaments and biological substances
CPT/HCPCS: 36415; 80048; 80053; 81003; 81015; 83605; 83690; 84484; 85025; 85610; 86140; 87040; 87045; 87046; 87077; 87086; 87328; 87329; 87493; 87899; 96360; 96361; 99284; A9270-GY; J3480

== ENCOUNTER 2019-06-30 10:40 | Inpatient (IN) | payer MEDICARE ==
--- NOTE | 2019-06-30 10:54 | ED ---
Adult Trauma - HPI Summary HPI Summary: Pt is an 79 y/o F presenting to the ED brought in by EMS for a fall. EMS found pt at the bottom of 8 steps, she was not there long as there are others who live in her house who heard her fall. Patient states she was going up the stairs to talk to her landlord about something. Patient states she is unsteady on her feet at times and this caused her to slip and fall. Patient does have a history of Parkinson's for which she supposed to use a walker but does not always. Patient states she did not lose consciousness. Patient complains of pain everywhere including her right wrist, jaw, back, shoulders, and right ribs. EMS notes she has a skin tear to right forearm. Patient is on Pradaxa for past strokes. Patient states she did take her medications this morning. Patient is not on last admission. Patient's medications reviewed of note, patient was in the emergency department 2 days ago for persistent diarrhea. Patient was found to be hypokalemic on outpatient labs. Patient was given potassium supplement repeat was improved and she was discharged home. Patient states she did see her doctor yesterday in follow-up to this appointment. - History of Current Complaint Chief Complaint: EDTraumaMultiple Stated Complaint: FALL NECK PAIN Time Seen by Provider: 06/30/19 10:45 Hx Obtained From: Patient, EMS Mechanism of Injury: Fall Ambulatory at the Scene: No Loss of Consciousness: no loss of consciousness Onset/Duration: Started Hours Ago, Still Present Onset of Pain: Immediate Onset Severity: Severe Current Severity: Severe Pain Intensity: 10 Pain Scale Used: 0-10 Numeric Location: Back, Abdomen/Pelvis, Extremities Aggravating Factor(s): Movement Alleviating Factor(s): Nothing Associated Signs & Symptoms: Positive: Painful Respirations, Ecchymosis Related History: Anticoagulants - Additional Pertinent History Primary Care Physician: [id number] - Allergy/Home Medications Allergies/Adverse Reactions: Allergies Allergy/AdvReac Type Severity Reaction Status Date / Time dofetilide [From Tikosyn] Allergy Unknown Verified 03/18/19 01:45 Reaction Details Penicillins Allergy Hives Verified 03/18/19 01:45 crystal light Allergy Airway Uncoded 11/28/18 18:00 Obstruction Home Medications: Home Medications L.acidoph,Paracasei, B.lactis [Probiotic] 1 each PO BID 06/30/19 [History Confirmed 06/30/19] Loperamide CAP* [Imodium CAP*] 2 mg PO BID PRN 06/30/19 [History Confirmed 06/30] Melatonin (NF) 1 tab PO BEDTIME PRN 06/30/19 [History Confirmed 06/30/19] hydrOXYzine HCL TAB* [Atarax 25 MG TAB*] 25 mg PO .Q6-8H PRN 06/30/19 [History Confirmed 06/30/19] PMH/Surg Hx/FS Hx/Imm Hx Previously Healthy: Yes Endocrine/Hematology History: Reports: Hx Anticoagulant Therapy, Hx Blood Transfusions - current visit, Hx Anemia - current Denies: Hx Diabetes, Hx Thyroid Disease Cardiovascular History: Reports: Hx Hypertension, Hx Pacemaker/ICD - RIGHT SIDE , Hx Syncope, Other Cardiovascular Problems/Disorders - RECENT STOKE 3 WEEKS AGO Denies: Hx Angina, Hx Coronary Artery Disease, Hx Hypercholesterolemia, Hx Myocardial Infarction, Hx Peripheral Vascular Disease Respiratory History: Denies: Hx Asthma, Hx Chronic Obstructive Pulmonary Disease (COPD), Other Respiratory Problems/Disorders GI History: Reports: Hx Gastroesophageal Reflux Disease - HISTORY OF, Hx Ulcer - OCTOBER 2016 Musculoskeletal History: Reports: Hx Arthritis, Hx Rheumatoid Arthritis, Hx Back Problems Denies: Hx Osteoporosis Sensory History: Reports: Hx Contacts or Glasses Denies: Hx Hearing Aid Opthamlomology History: Reports: Hx Contacts or Glasses Neurological History: Reports: Hx Migraine, Hx Transient Ischemic Attacks (TIA) , Other Neuro Impairments/Disorders - HISTORY OF PARKINSONS Denies: Hx Headaches, Hx Seizures - Cancer History Cancer Type, 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 - Surgical History Surgery Procedure, Year, and Place: skin, hysterectomy- one ovary; appe; pacemaker; heart scraped after infection Hx Anesthesia Reactions: No - Immunization History Date of Tetanus Vaccine: UTD Date of Influenza Vaccine: 2015 Infectious Disease History: No Infectious Disease History: Denies: Hx Clostridium Difficile, Hx Hepatitis, Hx Human Immunodeficiency Virus (HIV), Hx of Known/Suspected MRSA, Hx Shingles, Hx Tuberculosis, Hx Known/ Suspected VRE, Hx Known/Suspected VRSA, History Other Infectious Disease, Traveled Outside the [place] in Last 30 Days - Family History Known Family History: Positive: Cardiac Disease, Hypertension, Other - [place] - Social History Alcohol Use: None Hx Substance Use: No Substance Use Type: Reports: None Hx Tobacco Use: No Smoking Status (MU): Never Smoked Tobacco Review of Systems Positive: Diarrhea Positive: Arthralgia, Myalgia Positive: Bruising, Other - skin tear All Other Systems Reviewed And Are Negative: Yes Physical Exam - Summary Physical Exam Summary: Vital Signs Reviewed: Yes A+Ox3, uncomfortable, tearful, in c collar Eyes: Conjunctiva Clear, [place]. EOM intact and full ENT: Hearing grossly normal TM x 2 clear - no hemotymp, no septal hematoma, mmoist, no blood oropharynx, uvula midline, no exudate, no erythema Neck: C collar Respiratory: Positive: No respiratory distress, No accessory muscle use + CTA throughout no w/r Cardiovascular: RRR nl s1, s2 no m/r CBT <2 sec abd soft + BS nt/nd no guarding, no distension Musculoskeletal Exam:pt with point tenderness low back Pt with pain with movement RUE - complains of pain in forearm, wrist pain with palp RUE Neurological: Positive: Alert, + sensation throughout Psychological: Positive: Normal Response To examiner Skin: Positive: no rash, no ecchymosis. skin tear right forarm, dorsum, posterior scalp Triage Information Reviewed: Yes Vital Signs On Initial Exam: Initial Vitals Temp Pulse Resp BP Pulse Ox 97.2 F 91 19 144/105 93 06/30/19 10:49 06/30/19 10:49 06/30/19 10:49 06/30/19 10:49 06/30/19 10:49 Vital Signs Reviewed: Yes Procedures - Sedation Patient Received Moderate/Deep Sedation with Procedure: No - Splinting Right Upper Extremity Location: right wrist Hand-Made Type: orthoglass Splint: wrist Pre-Proc Neuro Vasc Exam: normal Post-Proc Neuro Vasc Exam: normal, unchanged from pre-exam Splint Applied by Provider: Lavinia Arvizu Omnigy - Vital Signs Vital Signs Temp Pulse Resp BP Pulse Ox 06/30/19 10:49 97.2 F 91 19 144/105 93 - Laboratory Result Diagrams: 06/30/19 10:47 06/30/19 10:47 Lab Statement: Any lab studies that have been ordered have been reviewed, and results considered in the medical decision making process. - Radiology Elbow XR Radiology Interpretation Completed By: Radiologist Summary of Radiographic Findings: Single lateral view of the right elbow demonstrates question joint effusion. No obvious fracture is noted although this is a limited single view. ED physician has reviewed this report. Forearm XR Radiology Interpretation Completed By: Radiologist Summary of Radiographic Findings: Fracture of the distal diaphysis of the ulna without significant displacement. ED physician has reviewed this report. Wrist XR Radiology Interpretation Completed By: Radiologist Summary of Radiographic Findings: Fracture of the distal diaphysis of the ulna without significant displacement. ED physician has reviewed this report. Elbow XR 2 Radiology Interpretation Completed By: Radiologist Summary of Radiographic Findings: No definite fracture is noted although the study is limited due to limited positioning. ED physician has reviewed this report. Humerus XR Radiology Interpretation Completed By: Radiologist Summary of Radiographic Findings: No definite fracture of the right humerus is noted. ED physician has reviewed this report. Hip/Pelvis XR Radiology Interpretation Completed By: Radiologist Summary of Radiographic Findings: No fracture of the right hip or pelvis is noted. ED physician has reviewed this report. - CT Brain CT CT Interpretation Completed By: Radiologist Summary of CT Findings: 1. NO ACUTE INTRACRANIAL PATHOLOGY. 2. SOFT TISSUE SWELLING. 3. STABLE CHRONIC INFARCT. ED physician has reviewed this report. CT C-spine CT Interpretation Completed By: Radiologist Summary of CT Findings: 1. OSTEOPENIA. 2. DEGENERATIVE DISC DISEASE AND OSTEOARTHRITIS. 3. NO ACUTE OSSEOUS INJURY TO THE CERVICAL SPINE. ED physician has reviewed this report. CT L-spine CT Interpretation Completed By: Radiologist Summary of CT Findings: 1. OSTEOPENIA. 2. SCOLIOSIS. 3. DEGENERATIVE DISC DISEASE AND OSTEOARTHRITIS. 4. NO ACUTE OSSEOUS INJURY TO THE LUMBAR SPINE. ED physician has reviewed this report. CT C/A/P CT Interpretation Completed By: Radiologist Summary of CT Findings: 1. CARDIOMEGALY. 2. ATHEROSCLEROSIS. 3. 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 4. CHRONIC FRACTURE OF THE STERNUM. 5. NO ACUTE CT PATHOLOGY OF THE VISUALIZED CHEST, ABDOMEN, OR PELVIS. ED physician has reviewed this report. Re-Evaluation - Re-Evaluation 1st re-eval Re-Evaluation Time: 11:32 Change: Unchanged Comment: I spoke with the pts daughter, who I received permission to speak with from the pt, as they are somewhat estranged. Pts daughter is concerned about pts safety. Pt has a walker at home but refuses to use it. States pt's landlord (lives upstairs) reports frequent falls 2nd re-eval Re-Evaluation Time: 15:09 Comment: REviewed CT can with pt/daughter - C collar removed. Will place splint right forearm. Will send back to xray for hip and further RUE imaging. Pt able SLE Flex/ext knee, external rotate with pain on right Third Eval Re-Evaluation Time: 15:09 Comment: Called ortho (Dr. Wilson), made aware of pt. They will consult pt.requested pt in splint. I did mention skin tear - not open fracture Adult Trauma Course/Dx - Course Course Of Treatment: Patient presents to urgent emergent treatment by EMS. Patient is a healthy with a history of Parkinson's per patient is on anticoagulation. Patient had a mechanical fall down 8 stairs. Patient complaining of pain in her right ribs right arm lower extremities. On exam patient's blood pressure is elevated but other vitals are stable. Patient had a full head to toe exam. We'll start with purvis CT scan had C-spine to pelvis and images of the arm. Anticipate may send patient back for further evaluation once we get the studies. Patient aware of plan. We'll order some morphine. - Diagnoses Provider Diagnoses: Ulnar fracture, Fall, Hypomagnesemia, Skin tear - Critical Care Time Critical Care Time: 30-74 min Discharge ED - Sign-Out/Discharge Documenting (check all that apply): Patient Departure - Discharge Plan Condition: Stable Disposition: ADMITTED TO [facility] - Billing Disposition and Condition Condition: STABLE Disposition: Admitted to [facility] - Attestation Statements Document Initiated by Scribe: Yes Documenting Scribe: Breanna Turner Provider For Whom Kirk is Documenting (Include Credential): Lavinia Arvizu MD. Scribe Attestation: I, Breanna Turner, scribed for Lavinia Arvizu MD. on 06/30/19 at 1658. Scribe Documentation Reviewed: Yes Provider Attestation: The documentation as recorded by the Breanna lr accurately reflects the service I personally performed and the decisions made by me, Lavinia Arvizu MD. Status of Scribe Document: Viewed Consult Consult: [id number] - I spoke with Dr. Goff who will be accepting pt [place] [facility] [place]. reviewed pt with Dr. Wilson - orthopedic
[2019-06-30] MEDS ORDERED: Morphine 4 MG/ML VIAL (1 ml) 4 MG/ML VIAL IV ONE ×2 (10:55→11:58)
[2019-06-30] MEDS ORDERED: Iodixanol* (CONTRAST) 320 MG/ML 100 ML SDV IV ONE (10:57)
[2019-06-30] MEDS: NS 0.9% 1000 ML** 1,000 ML IV SCH ×2 (10:59→16:03)
[2019-06-30 11:11] LABS: ABS Eosinophils 0.1 10^3/ul (0-0.6); ABS Lymphocytes 0.9 10^3/ul (1.0-4.8); ABS Monocytes 0.7 10^3/ul (0-0.8); ABS Neutrophils 7.6 10^3/ul (1.5-7.7); Eosinophil % 0.6 %; Hematocrit 32 % (35-47); Hemoglobin 10.9 g/dL (12.0-16.0); Lymphocyte % 9.3 %; Mean Corpuscular HGB Conc 34 g/dL (31-36); Mean Corpuscular Hemoglobin 32 pg (27-31); Mean Corpuscular Volume 96 fL (80-97); Mean Platelet Volume 8.2 fL (7.4-10.4); Platelet Count 268 10^3/uL (150-450); Red Blood Count 3.38 10^6 /uL (3.70-4.87); Red Cell Distribution Width 15 % (10-15); White Blood Count 9.2 10^3/uL (3.5-10.8)
[2019-06-30 11:45] LABS: ALT < 3 U/L (7-52); AST 11 U/L (13-39); Albumin/Globulin Ratio 1.5 (1-3); Alkaline Phosphatase 69 U/L (34-104); Anion Gap 7 mmol/L (2-11); BUN/Creatinine Ratio 19.1 (8-20); Blood Urea Nitrogen 25 mg/dL (6-24); CO2 Carbon Dioxide 24 mmol/L (22-32); Calcium 9.2 mg/dL (8.6-10.3); Chloride 110 mmol/L (101-111); EGFR African American 47.1 (>60); Globulin 2.6 g/dL (2-4); Glucose 106 mg/dL (70-100); Magnesium 1.5 mg/dL (1.9-2.7); Potassium 3.8 mmol/L (3.5-5.0); Sodium 141 mmol/L (135-145); Total Protein 6.6 g/dL (6.4-8.9)
[2019-06-30] MEDS ORDERED: Carbidopa/Levodop 25/100 MG TAB(*) PO ONE (12:05)
[2019-06-30] MEDS ORDERED: Magnesium Sulfate 2 GM IV* 2 GM/50 ML BAG IVPB ONE (12:26)
[2019-06-30 13:39] LABS: Urine Appearance Cloudy; Urine Bacteria Absent (Absent); Urine Bilirubin Negative (Negative); Urine Blood 1+ (Negative); Urine Color Yellow; Urine Glucose Negative (Negative); Urine Ketones Negative (Negative); Urine Nitrite Negative (Negative); Urine Protein Negative (Negative); Urine Red Blood Cell Absent (Absent); Urine Specific Gravity 1.031 (1.010-1.030); Urine Squamous Epithelial Cell Present (Absent); Urine Urobilinogen Negative (Negative); Urine White Blood Cell Trace(0-5/hpf) (Absent)
[2019-06-30] MEDS ORDERED: Tetan/Diph/Pertus SYR(Tdap)* 0.5 ML SYR(BOOSTRIX) use SYR contains LATEX IM ONE (13:41)
[2019-06-30] MEDS ORDERED: hydrOXYzine HCL TAB* 25 MG PO PRN (14:11)
[2019-06-30] MEDS ORDERED: Loperamide CAP* 2 MG PO PRN (14:11)
[2019-06-30] MEDS ORDERED: Al Hydrox/Mg Hydrox/Simet LIQ* 30 ML UDC PO PRN (14:42)
--- NOTE | 2019-06-30 15:33 | HP ---
CONTINUATION ADDENDUM NOW INCLUDED ON THIS REPORT CC: Dr. Scales; Dr. Ross * HISTORY AND PHYSICAL: DATE OF ADMISSION: 06/30/19 PRIMARY CARE PROVIDER: Dr. Scales. CHIEF COMPLAINT: Status post fall. HISTORY OF PRESENT ILLNESS: Liudmila Phelan is an 79-year-old female with history of chronic atrial fibrillation, on Pradaxa as well as history of chronic Parkinson's and history of residual left-sided weakness status post ischemic CVA , who presented to the hospital after she fell from approximately 8 steps in her home. The patient stated that she sold her house to a family that lives above her. The part of the contract that she has with the person that she sold the house to is that she will stay in the downstairs/basement apartment for as long as she is able to live independently and they have to honor that. Once she will not be able to live independently in her apartment, the house is officially sold to the person who lives above the patient. The patient stated that she was walking upstairs to the living room to talk with her friends upstairs and she started calling and no one answers so she started walking up the stairs and she lost her balance and fell backwards. She hit the back of her head. She fractured her right forearm. She also apparently has a laceration on her right forearm that is not visualized now due to splint that was placed in the ED. She is going to be placed CONTINUATION ADDENDUM: The patient is going to be admitted with diagnoses of fall, right ulnar fracture , dehydration. PAST MEDICAL HISTORY: 1. Parkinson's with significant dysautonomia and orthostatic hypotension. 2. History of multiple falls secondary to orthostatic hypotension. 3. 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 4. Chronic atrial fibrillation, on anticoagulation with Pradaxa. 5. History of nonsustained ventricular tachycardia. 6. History of chronic diastolic CHF. 7. Status post pacemaker placement. 8. Appendectomy. 9. Hysterectomy. 10. Cataract surgery bilaterally. 11. Left eye laser surgery. 12. History of GI bleed. 13. Dyslipidemia. 14. TIA in December of 2017. MEDICATIONS AT HOME: Include: 1. Carafate 1 g 3 times a day. 2. Amlodipine 5 mg daily. 3. Omeprazole 40 mg b.i.d. 4. Sinemet 25/100 two tablets at 8 p.m., 2 tablets at 8 a.m., 1-1/2 tablets at noon, 1 tablet at 4 p.m. 5. Metoprolol tartrate 50 mg b.i.d. 6. Florinef 0.1 mg daily. 7. Acetaminophen on p.r.n. basis. 8. Melatonin at bedtime p.r.n. 9. Lisinopril 20 mg daily. 10. Pradaxa 75 mg b.i.d. 11. Hydroxyzine 25 mg every 8 hours p.r.n. 12. Lexapro 5 mg daily. 13. Probiotic 1 capsule b.i.d. 14. Loperamide 2 mg b.i.d. p.r.n. ALLERGIES: PENICILLIN, , and TIKOSYN. FAMILY HISTORY: Father at age of 71 secondary to [place]. Mother at age of 68 secondary to heart attack. Daughter with history of breast cancer. Sister with lung cancer. Father had cancer. SOCIAL HISTORY: As mentioned above, the patient sold the house to a family that lives above her. The patient still continues to live in a basement apartment with an expectation and I believe there was also written contract that patient once she is unable to live in the apartment, the family who she sold the house to, will take over the entire house. She ambulates with a rolling walker. He has 2 person concrete mixer operator helper who come in every day to help her with cooking and cleaning. She denies any tobacco, alcohol, or drug use. Her surrogate decision maker is her son, who lives in [place], his name is Tyler Cuba. REVIEW OF SYSTEMS: Please see history of present illness. The patient stated in the past 8 weeks, she fell "only 3 times," usually she falls when she is not attentive enough as she stated herself. Occasionally she gets dizzy. She ambulates with a rolling walker. She has chronic left leg weakness, which is mild. She denies any chest pain or shortness of breath. She stated that she did have an episode of loose bowel movements couple of days ago that resolved. There is no abdominal pain. All the remaining 12 systems were reviewed with the patient and were otherwise negative. PHYSICAL EXAMINATION GENERAL: The patient is a very pleasant 79-year-old female, who is in no acute distress. The patient is alert and oriented x3. VITAL SIGNS: Blood pressure of 141/90, heart rate of 88 and regularly regular, respiratory rate 14, oxygen saturation 90% on room air, temperature of 97.2. HEENT: Head with an abrasion noted on the occipital scalp with some bleeding that now resolved. No laceration. Eyes: Extraocular muscles intact. Pupils are equal, reactive to light and accommodation. Oropharynx is clear. Mucosa dry. NECK: Supple. No JVD. No bruits bilaterally. RESPIRATORY: Clear to auscultation bilaterally. CARDIOVASCULAR: Regularly regular rhythm. No murmur. ABDOMEN: Soft, nontender. Bowel sounds are present in all 4 quadrants. EXTREMITIES: There is no edema. Pulses are +2 bilaterally. No clubbing or cyanosis. The right forearm is placed in a splint by the ED provider. NEUROLOGIC: Speech clear. Cranial nerves II through XII grossly intact. Motor strength is mildly diminished in the left lower extremity at 4+/5. The patient has visible tremor of the right throughout her body more than the left due to her Parkinson's. SKIN: On evaluation of the skin, the patient has small abrasion on the occipital region of her scalp, but not bleeding acutely. The patient apparently has a laceration underneath the cast in her right arm as per report. Currently not visualized. PSYCHIATRIC EVALUATION: Stepan, cooperative with evaluation with no evidence of anxiety or depression. DIAGNOSTIC STUDIES/LAB DATA: White blood cell count of 9.2, hemoglobin 10.9, hematocrit 32, and platelets 268. Sodium was 141, potassium 3.8, chloride 106, carbon dioxide 24, BUN 25, creatinine 1.31, which is chronic. Magnesium was low at 1.5. Liver function tests were unremarkable. Urinalysis showed high specific gravity of 1.031, trace blood, trace esterase, present squamous epithelial cells. The patient had multiple radiologic studies performed in the ED that included: Brain CT that showed no acute intracranial pathology, soft tissue swelling and stable chronic infarct. C-spine CT, impression: "Osteopenia, degenerative disk disease, and osteoarthritis. No acute osseous injury to the cervical spine." CT of chest, abdomen and pelvis, impression: "Cardiomegaly. Atherosclerosis. Chronic compression deformities of the thoracic spine. Chronic fracture of the sternum. No acute CT pathology of the visualized chest, abdomen and pelvis." Lumbar spine CT, impression: "Osteopenia. Scoliosis. Degenerative disk disease and osteoarthritis. No acute osseous injury to the lumbar spine." Elbow x-ray on the right, impression: "Single lateral view of the right elbow demonstrate question joint effusion. No obvious fracture is noted, although it is limited in the ." Forearm x-ray, impression: "Fracture of the distal diaphysis of the ulna without significant displacement on the right side." Wrist x-ray on the right, impression: "Fracture of the distal diaphysis of the ulna without significant displacement." Humerus x-ray, impression: "No definite fracture of the right humerus is noted. " Hip and pelvis x-rays, impression: "No fracture of the right hip or pelvis is noted." ASSESSMENT AND PLAN: 1. Status post fall with right ulnar fracture. We will notify the orthopedic service. I suspect that this will be able to be treated conservatively with immobilization and non-weightbearing status with followup as outpatient. The patient is going to be placed on inpatient status. Due to her Parkinson's and poor baseline ambulatory status and frequent falls with non-weightbearing status on the right arm, I do not believe she is going to be ambulate independently to live independently in her apartment. She will need to be placed on short-term rehabilitation status, although the patient herself stated that "she would rather than be placed in a home." Nevertheless, I did not expect for the patient to be able to be leaving this hospital within the next 24 hours and she is going to be placed on inpatient status. Also, her pain in her right arm after the fracture is rather uncontrolled and she had received already couple of doses of IV morphine and we will continue morphine on an as- needed basis throughout her hospital stay. The patient appears to be mildly dehydrated and intravenous fluids are going to be provided. She was already ordered 3 L of intravenous fluid bolus in the emergency department. I will allow those fluids to be infused and then not continue further intravenous fluid hydration for the time being and observe. 2. For patient's Parkinson's, her Sinemet is going to be continued. 3. For her atrial fibrillation, the patient's atrial fibrillation is rate controlled. She is on anticoagulation with Pradaxa. I will hold tonight dose and restart anticoagulation in the morning presuming that her status is going to be unchanged. So far, there is no evidence of bleeding anywhere on the visualized studies as mentioned above. 4. The patient has history of orthostatic hypotension. Florinef is going to be continued. 5. For her hypertension, her Norvasc is going to be continued. I will hold her lisinopril for the time being. 6. For DVT prophylaxis, the patient is going to be restarted on her Pradaxa in the morning. 7. The patient's code status is full. Her surrogate is her son as mentioned above. TIME SPENT: Approximately 72 minutes was spent on the admission of this patient , more than half that time was spent [id number] with the patient during the interview and physical exam. [id number] #: [id number] [id number]/CPS #: [id number] BHUPENDRA
[2019-06-30] MEDS: Carbidopa/Levodop 25/100 MG TAB(*) PO SCH ×2 (16:03→19:51)
--- NOTE | 2019-06-30 16:54 | CONSULT ---
Consult Consult: Please see dictated report for full details Patient was seen at bedside in consultation for mechanical fall down 3 steps at home. She has had several xrays, with right ulna fracture identified. A splint has been placed on the right forearm by the ER. On exam she is alert and oriented x 3 in NAD. UE: RUE with splint in place. Nontender aside from distal forearm. Able to flex and extend digits, elbow without pain. Can FF and ABD shoulder without pain. LUE skin envelope intact, nontender to palpation, able to flex and extend digits, wrist, elbow shoulder without pain. BL LE skin envelope intact, nontender to palpation, able to flex and extend digits, ankle, knee and hip without pain. No pain with log roll at the hips. No fractures identified aside form R forearm. NWB RUE. WBAT LUE, BL LE. If any new pain or complaints please alert orthopedics, will follow her while in house and will change her splint on her right forearm prior to DC.
--- NOTE | 2019-06-30 17:29 | HP ---
CC: Dr. Ross * HISTORY AND PHYSICAL: DATE OF ADMISSION: 06/30/19 ADDENDUM: The patient is going to be admitted with diagnoses of fall, right ulnar fracture, dehydration. PAST MEDICAL HISTORY: 1. Parkinson's with significant dysautonomia and orthostatic hypotension. 2. History of multiple falls secondary to orthostatic hypotension. 3. 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 4. Chronic atrial fibrillation, on anticoagulation with Pradaxa. 5. History of nonsustained ventricular tachycardia. 6. History of chronic diastolic CHF. 7. Status post pacemaker placement. 8. Appendectomy. 9. Hysterectomy. 10. Cataract surgery bilaterally. 11. Left eye laser surgery. 12. History of GI bleed. 13. Dyslipidemia. 14. TIA in December of 2017. MEDICATIONS AT HOME: Include: 1. Carafate 1 g 3 times a day. 2. Amlodipine 5 mg daily. 3. Omeprazole 40 mg b.i.d. 4. Sinemet 25/100 two tablets at 8 p.m., 2 tablets at 8 a.m., 1-1/2 tablets at noon, 1 tablet at 4 p.m. 5. Metoprolol tartrate 50 mg b.i.d. 6. Florinef 0.1 mg daily. 7. Acetaminophen on p.r.n. basis. 8. Melatonin at bedtime p.r.n. 9. Lisinopril 20 mg daily. 10. Pradaxa 75 mg b.i.d. 11. Hydroxyzine 25 mg every 8 hours p.r.n. 12. Lexapro 5 mg daily. 13. Probiotic 1 capsule b.i.d. 14. Loperamide 2 mg b.i.d. p.r.n. ALLERGIES: PENICILLIN, , and TIKOSYN. FAMILY HISTORY: Father at age of 71 secondary to [place]. Mother at age of 68 secondary to heart attack. Daughter with history of breast cancer. Sister with lung cancer. Father had cancer. SOCIAL HISTORY: As mentioned above, the patient sold the house to a family that lives above her. The patient still continues to live in a basement apartment with an expectation and I believe there was also written contract that patient once she is unable to live in the apartment, the family who she sold the house to, will take over the entire house. She ambulates with a rolling walker. He has 2 person metal hanging helper who come in every day to help her with cooking and cleaning. She denies any tobacco, alcohol, or drug use. Her surrogate decision maker is her son, who lives in [place], his name is Tyler Cuba. REVIEW OF SYSTEMS: Please see history of present illness. The patient stated in the past 8 weeks, she fell "only 3 times," usually she falls when she is not attentive enough as she stated herself. Occasionally she gets dizzy. She ambulates with a rolling walker. She has chronic left leg weakness, which is mild. She denies any chest pain or shortness of breath. She stated that she did have an episode of loose bowel movements couple of days ago that resolved. There is no abdominal pain. All the remaining 12 systems were reviewed with the patient and were otherwise negative. PHYSICAL EXAMINATION GENERAL: The patient is a very pleasant 79-year-old female, who is in no acute distress. The patient is alert and oriented x3. VITAL SIGNS: Blood pressure of 141/90, heart rate of 88 and regularly regular, respiratory rate 14, oxygen saturation 90% on room air, temperature of 97.2. HEENT: Head with an abrasion noted on the occipital scalp with some bleeding that now resolved. No laceration. Eyes: Extraocular muscles intact. Pupils are equal, reactive to light and accommodation. Oropharynx is clear. Mucosa dry. NECK: Supple. No JVD. No bruits bilaterally. RESPIRATORY: Clear to auscultation bilaterally. CARDIOVASCULAR: Regularly regular rhythm. No murmur. ABDOMEN: Soft, nontender. Bowel sounds are present in all 4 quadrants. EXTREMITIES: There is no edema. Pulses are +2 bilaterally. No clubbing or cyanosis. The right forearm is placed in a splint by the ED provider. NEUROLOGIC: Speech clear. Cranial nerves II through XII grossly intact. Motor strength is mildly diminished in the left lower extremity at 4+/5. The patient has visible tremor of the right throughout her body more than the left due to her Parkinson's. SKIN: On evaluation of the skin, the patient has small abrasion on the occipital region of her scalp, but not bleeding acutely. The patient apparently has a laceration underneath the cast in her right arm as per report. Currently not visualized. PSYCHIATRIC EVALUATION: Pleasant, cooperative with evaluation with no evidence of anxiety or depression. DIAGNOSTIC STUDIES/LAB DATA: White blood cell count of 9.2, hemoglobin of 10.9 , hematocrit of 32, and platelets of 268. Sodium was 141, potassium 3.8, chloride 106, carbon dioxide 24, BUN 25, creatinine 1.31, which is chronic. Magnesium was low at 1.5. Liver function tests were unremarkable. Urinalysis showed high specific gravity of 1.031, trace blood, trace esterase, present squamous epithelial cells. The patient had multiple radiologic studies performed in the ED that included: Brain CT that showed no acute intracranial pathology, soft tissue swelling and stable chronic infarct. C-spine CT, impression: "Osteopenia, degenerative disk disease, and osteoarthritis. No acute osseous injury to the cervical spine." CT of chest, abdomen and pelvis, impression: "Cardiomegaly. Atherosclerosis. Chronic compression deformities of the thoracic spine. Chronic fracture of the sternum. No acute CT pathology of the visualized chest, abdomen and pelvis." Lumbar spine CT, impression: "Osteopenia. Scoliosis. Degenerative disk disease and osteoarthritis. No acute osseous injury to the lumbar spine." Elbow x-ray on the right, impression: "Single lateral view of the right elbow demonstrate question joint effusion. No obvious fracture is noted, although it is limited in the ." Forearm x-ray, impression: "Fracture of the distal diaphysis of the ulna without significant displacement on the right side." Wrist x-ray on the right, impression: "Fracture of the distal diaphysis of the ulna without significant displacement." Humerus x-ray, impression: "No definite fracture of the right humerus is noted. " Hip and pelvis x-rays, impression: "No fracture of the right hip or pelvis is noted." ASSESSMENT AND PLAN: 1. Status post fall with right ulnar fracture. We will notify the orthopedic service. I suspect that this will be able to be treated conservatively with immobilization and non-weightbearing status with followup as outpatient. The patient is going to be placed on inpatient status. Due to her Parkinson's and poor baseline ambulatory status and frequent falls with non-weightbearing status on the right arm, I do not believe she is going to be ambulate independently to live independently in her apartment. She will need to be placed on short-term rehabilitation status, although the patient herself stated that "she would rather than be placed in a home." Nevertheless, I did not expect for the patient to be able to be leaving this hospital within the next 24 hours and she is going to be placed on inpatient status. Also, her pain in her right arm after the fracture is rather uncontrolled and she had received already couple of doses of IV morphine and we will continue morphine on an as- needed basis throughout her hospital stay. The patient appears to be mildly dehydrated and intravenous fluids are going to be provided. She was already ordered 3 L of intravenous fluid bolus in the emergency department. I will allow those fluids to be infused and then not continue further intravenous fluid hydration for the time being and observe. 2. For patient's Parkinson's, her Sinemet is going to be continued. 3. For her atrial fibrillation, the patient's atrial fibrillation is rate controlled. She is on anticoagulation with Pradaxa. I will hold tonight dose and restart anticoagulation in the morning presuming that her status is going to be unchanged. So far, there is no evidence of bleeding anywhere on the visualized studies as mentioned above. 4. The patient has history of orthostatic hypotension. Florinef is going to be continued. 5. For her hypertension, her Norvasc is going to be continued. I will hold her lisinopril for the time being. 6. For DVT prophylaxis, the patient is going to be restarted on her Pradaxa in the morning. 7. The patient's code status is full. Her surrogate is her son as mentioned above. TIME SPENT: Approximately 72 minutes was spent on the admission of this patient , more than half that time was spent [id number] with the patient during the interview and physical exam. [id number]/[facility] #: [id number] BHUPENDRA
[2019-06-30] MEDS: Cholestyramine Resin* 4 GM POWDER PO SCH (17:32)
[2019-06-30] MEDS: Sucralfate TAB* 1 GM PO SCH (19:50)
[2019-06-30] MEDS: Pantoprazole TAB * 40 MG TAB PO SCH (19:50)
[2019-06-30] MEDS: Metoprolol Tartrate TAB* 50 mg PO SCH (19:50)
[2019-06-30] MEDS: Senna TAB 8.6 mg* TAB PO SCH ×2 (19:50→20:09)
[2019-06-30] MEDS: Docusate CAP* 100 MG PO SCH ×2 (19:50→19:54)
[2019-06-30] MEDS: Morphine INJ* 2 MG/ML 1 ML SYRINGE (TWO MG - NEW SYRINGE VERSION) IV PRN (19:51)
[2019-06-30] MEDS ORDERED: Cholestyramine Resin* 4 GM POWDER PO SCH (21:00)
[2019-06-30] MEDS: oxyCODONE/Acetamin 5/325 MG* TAB PO PRN (23:39)
[2019-07-01 06:20] LABS: BUN/Creatinine Ratio 19.1 (8-20); Calcium 8.6 mg/dL (8.6-10.3); EGFR African American 69.2 (>60); EGFR Non-African American 57.2 (>60); Potassium 3.3 mmol/L (3.5-5.0)
[2019-07-01] MEDS: NS 0.9% 1000 ML** 1,000 ML IV SCH (06:35)
[2019-07-01] MEDS ORDERED: Potassium Chloride* LIQUID 20 MEQ/15 ML UDC PO ONE (07:41)
[2019-07-01] MEDS: Cholestyramine Resin* 4 GM POWDER PO SCH (09:04)
[2019-07-01] MEDS: Carbidopa/Levodop 25/100 MG TAB(*) PO SCH ×4 (09:04→19:57)
[2019-07-01] MEDS: Docusate CAP* 100 MG PO SCH (09:27)
[2019-07-01] MEDS: amLODIPine TAB* 5 MG PO SCH (09:27)
[2019-07-01] MEDS: Senna TAB 8.6 mg* TAB PO SCH (09:27)
[2019-07-01] MEDS: Pantoprazole TAB * 40 MG TAB PO SCH ×2 (09:39→19:57)
[2019-07-01] MEDS: CMC:Dabigatran CAP(NF) 75 MG CAP PO SCH ×2 (09:39→19:57)
[2019-07-01] MEDS: Magnesium Oxide TAB* 400 MG PO SCH ×2 (09:39→09:56)
[2019-07-01] MEDS: Sucralfate TAB* 1 GM PO SCH ×3 (09:39→19:56)
[2019-07-01] MEDS: Metoprolol Tartrate TAB* 50 mg PO SCH ×2 (09:39→19:55)
[2019-07-01] MEDS: Fludrocortisone Acetate TAB* 0.1 MG PO SCH (09:39)
[2019-07-01] MEDS: oxyCODONE/Acetamin 5/325 MG* TAB PO PRN (09:49)
[2019-07-01 10:27] LABS: ABS Lymphocytes 0.7 10^3/ul (1.0-4.8); ABS Monocytes 0.5 10^3/ul (0-0.8); ABS Neutrophils 6.3 10^3/ul (1.5-7.7); Eosinophil % 0.2 %; Hematocrit 32 % (35-47); Hemoglobin 10.5 g/dL (12.0-16.0); Lymphocyte % 9.1 %; Mean Corpuscular HGB Conc 33 g/dL (31-36); Mean Corpuscular Hemoglobin 32 pg (27-31); Mean Corpuscular Volume 96 fL (80-97); Mean Platelet Volume 8.4 fL (7.4-10.4); Nucleated Red Blood Cells % 0.1; Platelet Count 255 10^3/uL (150-450); Red Cell Distribution Width 15 % (10-15); White Blood Count 7.6 10^3/uL (3.5-10.8)
[2019-07-01] MEDS: Escitalopram * 5 MG TAB PO SCH (13:08)
--- NOTE | 2019-07-01 13:42 | PN ---
Progress Note - Progress Note Date of Service: 07/01/19 SOAP: Subjective: []Pt seen at bedside. She feels well today, complains of right wrist pain with movement but no other complaints. Denies dizziness, nausea, CP, SOB. Worked with PT this morning, no other complaints of extremity pain. Objective: []Gen: NAD RUE: Splint removed for skin check. There is a 1cm skin tear on the dorsal aspect of the forearm no surrounding erythema, + moderate ecchymosis. xeroform placed over the skin tear, kerlix wrap and then volar slab replaced with jyothi wrap. Able to f/e at all digits, sensation intact to light touch distally. Radial pulse 2+, cap refill less than two seconds distally. Assessment: []RIGHT ULNA FRACTURE Plan: []nwb rue ice,elevate, wiggle fingers to reduce swelling PT/OT, report to ortho any joint or extremity pain FU Dr Wilson 10-14 days s/p fall Vital Signs Temp 99.3 F 07/01/19 14:46 Pulse 92 07/01/19 14:46 Resp 20 07/01/19 14:46 BP 117/83 07/01/19 14:46 Pulse Ox 93 07/01/19 14:46 Intake & Output 06/30/19 07/01/19 07/01/19 18:59 06:59 18:59 Intake Total 590 1496 480 Balance 590 1496 480 Weight 117 lb 4.8 oz Intake: IV Fluids 50 1136 NS (0.9%) 1136 Oral 540 360 480 Other: Estimated Void Small Small # Bowel Movements 3 4 Estimated Stool Amount Small Small # Voids 2 5 Laboratory Last Values WBC 7.6 10^3/uL (3.5-10.8) 07/01/19 09:59 RBC 3.30 10^6 /uL (3.70-4.87) L 07/01/19 09:59 Hgb 10.5 g/dL (12.0-16.0) L 07/01/19 09:59 Hct 32 % (35-47) L 07/01/19 09:59 MCV 96 fL (80-97) 07/01/19 09:59 MCH 32 pg (27-31) H 07/01/19 09:59 MCHC 33 g/dL (31-36) 07/01/19 09:59 RDW 15 % (10-15) 07/01/19 09:59 Plt Count 255 10^3/uL (150-450) 07/01/19 09:59 MPV 8.4 fL (7.4-10.4) 07/01/19 09:59 Neut % (Auto) 83.3 % 07/01/19 09:59 Lymph % (Auto) 9.1 % 07/01/19 09:59 [place] % (Auto) 7.0 % 07/01/19 09:59 Eos % (Auto) 0.2 % 07/01/19 09:59 Baso % (Auto) 0.4 % 07/01/19 09:59 Absolute Neuts (auto) 6.3 10^3/ul (1.5-7.7) 07/01/19 09:59 Absolute Lymphs (auto) 0.7 10^3/ul (1.0-4.8) L 07/01/19 09:59 Absolute Monos (auto) 0.5 10^3/ul (0-0.8) 07/01/19 09:59 Absolute Eos (auto) 0.0 10^3/ul (0-0.6) 07/01/19 09:59 Absolute Basos (auto) 0.0 10^3/ul (0-0.2) 07/01/19 09:59 Absolute Nucleated RBC 0.0 10^3/ul 07/01/19 09:59 Nucleated RBC % 0.1 07/01/19 09:59 Sodium 140 mmol/L (135-145) 07/01/19 05:42 Potassium 3.3 mmol/L (3.5-5.0) L 07/01/19 05:42 Chloride 111 mmol/L (101-111) 07/01/19 05:42 Carbon Dioxide 21 mmol/L (22-32) L 07/01/19 05:42 Anion Gap 8 mmol/L (2-11) 07/01/19 05:42 BUN 18 mg/dL (6-24) 07/01/19 05:42 Creatinine 0.94 mg/dL (0.51-0.95) 07/01/19 05:42 Est GFR ( Amer) 69.2 (>60) 07/01/19 05:42 Est GFR (Non-Af Amer) 57.2 (>60) 07/01/19 05:42 BUN/Creatinine Ratio 19.1 (8-20) 07/01/19 05:42 Glucose 92 mg/dL (70-100) 07/01/19 05:42 Calcium 8.6 mg/dL (8.6-10.3) 07/01/19 05:42 Magnesium 1.5 mg/dL (1.9-2.7) L 06/30/19 10:47 Total Bilirubin 0.60 mg/dL (0.2-1.0) 06/30/19 10:47 AST 11 U/L (13-39) L 06/30/19 10:47 ALT < 3 U/L (7-52) L 06/30/19 10:47 Alkaline Phosphatase 69 U/L (34-104) 06/30/19 10:47 Total Protein 6.6 g/dL (6.4-8.9) 06/30/19 10:47 Albumin 4.0 g/dL (3.2-5.2) 06/30/19 10:47 Globulin 2.6 g/dL (2-4) 06/30/19 10:47 Albumin/Globulin Ratio 1.5 (1-3) 06/30/19 10:47 Lipase 30 U/L (11.0-82.0) 06/30/19 10:47 Urine Color Yellow 06/30/19 13:09 Urine Appearance Cloudy 06/30/19 13:09 Urine pH 6.0 (5-9) 06/30/19 13:09 Ur Specific [place] 1.031 (1.010-1.030) H 06/30/19 13:09 Urine Protein Negative (Negative) 06/30/19 13:09 Urine Ketones Negative (Negative) 06/30/19 13:09 Urine Blood 1+ (Negative) A 06/30/19 13:09 Urine Nitrate Negative (Negative) 06/30/19 13:09 Urine Bilirubin Negative (Negative) 06/30/19 13:09 Urine Urobilinogen Negative (Negative) 06/30/19 13:09 Ur Leukocyte Esterase Trace (Negative) A 06/30/19 13:09 Urine WBC (Auto) Trace(0-5/hpf) (Absent) 06/30/19 13:09 Urine RBC (Auto) Absent (Absent) 06/30/19 13:09 Ur Squamous Epith Cells Present (Absent) A 06/30/19 13:09 Urine Bacteria Absent (Absent) 06/30/19 13:09 Urine Glucose Negative (Negative) 06/30/19 13:09 <Alicia Verma - Last Filed: 07/01/19 14:45> - Progress Note SOAP: Subjective: Agree with above. Patient states that right wrist and forearm are her only areas of pain. Objective: RUE: - Splint in place - Fingers warm, NVID, no pain with PROM Assessment: R distal ulna fracture nondisplaced Plan: - Per report, skin tear looks uninfected - Ortho will place a short arm cast prior to discharge from hospital - Follow up in clinic in 1-2 weeks with me with xrays - Limit weight bearing right upper extremity as feasible without compromising patient mobility. Partial weight bearing. <Oscar Wilson - Last Filed: 07/01/19 19:01>
--- NOTE | 2019-07-01 14:08 | CONS ---
CONTINUATION ADDENDUM NOW INCLUDED ON THIS REPORT CC: Dr. Oscar Wilson * CONSULTATION REPORT: DATE OF ADMISSION: 06/30/19 DATE OF CONSULT: 06/30/19 PRIMARY COMPLAINT: Fall on the stairs at home. ATTENDING ORTHOPEDIC PROVIDER: Dr. Oscar Wilson. PRIMARY CARE PROVIDER: Dr. Scales. HISTORY OF PRESENT ILLNESS: This is an 79-year-old female. She has past medical history significant for chronic AFib. She is on Pradaxa. She also has Parkinson's disease. I am consulted today as she fell on the stairs with multiple complaints of pain in her extremities. Fall occurred while the patient was walking up the stairs at home. She missed the railing and fell backwards down 3 stairs. She reports she did hit her head and she also had immediate pain in her right wrist as well as her low back. In the emergency room, her right wrist was splinted. CONTINUATION ADDENDUM: HISTORY OF PRESENT ILLNESS: The patient complains that the only thing that she has is her right wrist as well as her lumbar spine. PAST MEDICAL HISTORY: Parkinson's with significant dysautonomia and orthostatic hypotension; multiple falls secondary to orthostatic hypotension, the patient states in the past 6 weeks she has had a total of 3 falls; right hemispheric stroke with residual left-sided weakness; chronic AFib, on anticoagulation with Pradaxa; history of nonsustained V-tach; chronic diastolic CHF, status post pacemaker placement; appendectomy; hysterectomy; cataract surgery bilaterally; left eye surgery; history of GI bleed; dyslipidemia; TIA in December of 2017. HOME MEDICATIONS: 1. Carafate 1 g 3 times a day. 2. Amlodipine 5 mg daily. 3. Omeprazole 40 mg b.i.d. 4. Sinemet 25/100 two tab at 8 p.m., 2 tabs at 8 a.m., 1-1/2 tabs at noon, 1 tab at 4 p.m. 5. Metoprolol tartrate 50 mg p.o. b.i.d. 6. Florinef 0.1 mg daily. 7. Acetaminophen on p.r.n. basis for pain. 8. Melatonin p.r.n. at bedtime. 9. Lisinopril 20 mg daily. 10. Pradaxa 75 mg b.i.d. 11. Hydroxyzine 25 mg p.o. q.8 hours p.r.n. 12. Lexapro 5 mg daily. 13. Probiotic 1 cap b.i.d. 14. Loperamide 2 mg p.o. b.i.d. ALLERGIES: PENICILLIN and TIKOSYN. FAMILY HISTORY: Father at age 71 of [place]. Mother at age 68 of [place]. SOCIAL HISTORY: The patient lives in the downstairs of a home owned by family that she sold her house to. She does have aides come in and out throughout the day to help with cooking and cleaning. No alcohol, tobacco, or drug use. Tyler [place], her son is her surrogate decision maker. REVIEW OF SYSTEMS: General: No recent illness, fever, or chills. HEENT: The patient did hit the back of her head. She has no headache or any change in vision. Cardiac: No chest pain. No feeling of irregular beats. Respiratory: No shortness of breath. Abdomen: The patient has had diarrhea up to 6 times a day for the past few weeks. : Mild burning on urination. Extremities: Positive for pain in the right wrist. No other extremity pain. Neuro: The patient reports no numbness or tingling in the extremities. PHYSICAL EXAM: General: No acute distress, pleasant, alert and oriented x3. Vital Signs: Temperature 97.8, pulse rate 86, respiratory rate 16, oxygen saturation 97%, blood pressure 137/67. HEENT: There is dried blood with swelling occipital region of the head. No active bleeding. Eyes: Extraocular movements intact. Cardio: S1, S2. Respiratory: Clear to auscultation bilaterally. Abdomen: Soft, nontender. Bowel sounds normoactive. Extremities : Right upper extremity: There is a 1-step splint placed on the right upper extremity. All 5 digits are exposed. The patient is able to flex and extend all 5 digits. Sensation intact to light touch and capillary refill less than 2 seconds distally. Able to flex and extend at the elbow. Able to forward flex and abduct the shoulder without pain. There is no tenderness to palpation throughout the extremity and no tenderness to palpation of the right clavicle. Left upper extremity: Skin envelope intact. Nontender to palpation. Able to flex and extend digits, wrist, elbow and forward flex and abduct shoulder without pain. No tenderness over the clavicle. Midline tenderness over the lumbar spine. Lower extremities: Bilateral lower extremities with skin envelope intact. There is no tenderness to palpation. Able to flex and extend at digits, ankles, knees, hips without pain. No pain with log roll of bilateral hips. DIAGNOSTIC STUDIES/LAB DATA: Brain CT: No acute intracranial pathology. Cervical spine CT: No acute osseous injury to the cervical spine. Chest, abdomen and pelvis CT: Chronic depression deformities of the thoracic spine, chronic fracture of the sternum. No acute pathology noted. CT of the lumbar spine: No acute osseous injury to the lumbar spine. Right elbow: No obvious fracture. Right forearm x-ray demonstrates fracture of the distal diaphysis of the ulna without significant displacement. Right humerus: No fracture. Right hip and pelvis: No fracture of the right hip or pelvis. Lab studies: Hemoglobin 10.9, hematocrit 32, white count 9.2. Sodium 141, potassium 3.8, creatinine 1.31. ASSESSMENT: Right ulna fracture. PLAN: The patient should be nonweightbearing on the right upper extremity. She may range digits, elbow and shoulder as tolerated. She should elevate, ice , and rest. Splint should remain in place. We will do skin checks while she is in the hospital of the skin tear underneath the splint. She can be weightbearing as tolerated on the left upper extremity as well as bilateral lower extremities. Right wrist fracture is nonoperative. She should follow up in our clinic for repeat x-rays in 10 days to [address] Wilson. The patient can mobilize with physical therapy. If she has any significant or new pain or any new complaints, Orthopedics should be contacted. CAROL DUMONT [id number]/CPS #: [id number]/CPS #: [id number]
[2019-07-01] MEDS ORDERED: Senna TAB 8.6 mg* TAB PO PRN (14:51)
--- NOTE | 2019-07-01 14:58 | PN ---
Subjective Date of Service: 07/01/19 Interval History: Patient has moderate pain in her arm, worse with movement. Patient complains of 6 weeks of diarrhea up to 7 times daily with occasional associated abdominal cramping. Patient has no recent travel, patient has been evaluate for this outpatient. Patient states this started after he magnesium supplement was started. Family History: Unchanged from Admission Social History: Unchanged from Admission Past Medical History: Unchanged from Admission Objective Active Medications: Acetaminophen (Tylenol Tab*) 650 mg PO Q4H PRN PRN Reason: PAIN-MILD/TEMP >/= 100.4 Al Hydrox/Mg Hydrox/Simethicone (Maalox Plus*) 30 ml PO Q6H PRN PRN Reason: INDIGESTION Amlodipine Besylate (Norvasc Tab*) 5 mg PO QAM [facility] Last Admin: 07/01/19 09:27 Dose: 5 mg Carbidopa/Levodopa (Sinemet 25/100 Tab(*)) 1 tab PO DAILY@1600 [facility] Last Admin: 06/30/19 16:03 Dose: 1 tab Carbidopa/Levodopa (Sinemet 25/100 Tab(*)) 1.5 tab PO DAILY@1200 [facility] Last Admin: 07/01/19 12:59 Dose: 1.5 tab Carbidopa/Levodopa (Sinemet 25/100 Tab(*)) 2 tab PO DAILY@0800 [facility] Last Admin: 07/01/19 09:04 Dose: 2 tab Carbidopa/Levodopa (Sinemet 25/100 Tab(*)) 2 tab PO DAILY@2000 [facility] Last Admin: 06/30/19 19:51 Dose: 2 tab Cholestyramine Resin (Questran*) 4 gm PO BID WITH MEALS [facility] Last Admin: 07/01/19 09:04 Dose: 4 gm Dabigatran (Pradaxa Cap(Nf)) 75 mg PO BID [facility] Last Admin: 07/01/19 09:39 Dose: 75 mg Escitalopram Oxalate (Lexapro *) 5 mg PO DAILY [facility]; Protocol Last Admin: 07/01/19 13:08 Dose: 5 mg Fludrocortisone Acetate (Florinef Tab*) 0.1 mg PO DAILY [facility] Last Admin: 07/01/19 09:39 Dose: 0.1 mg Hydroxyzine HCl (Atarax Tab*) 25 mg PO Q6H PRN PRN Reason: ANXIETY Loperamide HCl (Imodium Cap*) 2 mg PO BID PRN PRN Reason: DIARRHEA Melatonin (Melatonin) 3 mg PO BEDTIME PRN PRN Reason: SLEEP Metoprolol Tartrate (Lopressor Tab*) 50 mg PO BID [facility] Last Admin: 07/01/19 09:39 Dose: 50 mg Morphine Sulfate (Morphine Inj (Syringe))*) 1 mg IV Q4H PRN PRN Reason: PAIN - SEVERE Last Admin: 06/30/19 19:51 Dose: 1 mg Oxycodone/Acetaminophen (Percocet 5/325 Tab*) 1 tab PO Q4H PRN PRN Reason: pain-moderate Last Admin: 07/01/19 09:49 Dose: 1 tab Pantoprazole Sodium (Protonix Tab*) 40 mg PO BID [facility] Last Admin: 07/01/19 09:39 Dose: 40 mg Senna (Senokot 8.6 Mg Tab*) 1 tab PO BID PRN PRN Reason: CONSTIPATION Sucralfate (Carafate*) 1 gm PO TID [facility] Last Admin: 07/01/19 12:59 Dose: 1 gm Vital Signs - 8 hr 07/01/19 07/01/19 07/01/19 07:15 08:00 09:49 Temperature 97.8 F Pulse Rate 137 Respiratory 20 20 17 Rate Blood Pressure 157/92 (mmHg) O2 Sat by Pulse 93 Oximetry 07/01/19 07/01/19 07/01/19 10:20 11:00 11:55 Temperature 98.1 F Pulse Rate 136 101 Respiratory 15 20 Rate Blood Pressure 171/105 129/71 (mmHg) O2 Sat by Pulse 95 Oximetry 07/01/19 14:46 Temperature 99.3 F Pulse Rate 92 Respiratory 20 Rate Blood Pressure 117/83 (mmHg) O2 Sat by Pulse 93 Oximetry Oxygen Devices in Use Now: None Appearance: Patient is an 79yo female with right sided ptosis, who appears stated age and is sitting in the bed in [facility]. Eyes: No Scleral Icterus, PERRLA Ears/Nose/Mouth/Throat: NL Teeth, Lips, Gums, Clear Oropharnyx, Mucous Membranes Moist Neck: NL Appearance and Movements; NL JVP, Trachea Midline Respiratory: Symmetrical Chest Expansion and Respiratory Effort, Clear to Auscultation Cardiovascular: NL Sounds; No Murmurs; No JVD, RRR, No Edema Abdominal: No Hepatosplenomegaly, - - Hyperactive bowel sounds throughout. Lymphatic: No Cervical Adenopathy Extremities: No Edema, No Clubbing, Cyanosis Skin: No Rash or Ulcers, No Nodules or Sclerosis Neurological: Alert and Oriented x 3, - - Tremor, bradykinesia, Right sided weakness. Result Diagrams: 07/01/19 09:59 07/01/19 05:42 Assess/Plan/Problems-Billing Assessment: Patient is an 79yo female with a PMH for parkinson's, CVA, Falls, HFpEF, here with falls and humerus fracture, pending rehab. - Patient Problems (1) Falls Current Visit: Yes Status: Acute Comment: - Frequent, at least weekly - Likely combination of autonomic dysfunction and poor balance from Parkinson's disease - PT/OT, continue Sinemet and Florinef. - PMRU eval. (2) Right distal ulnar fracture Current Visit: Yes Status: Acute Code(s): S52.601A - UNSP FRACTURE OF LOWER END OF RIGHT ULNA, INIT FOR CLOS FX SNOMED Code(s): 820769124 Comment: - MOISES BARRERA, Appreciate Orthopedic input - Due to fall with no other injury. (3) Diarrhea Current Visit: Yes Status: Acute Code(s): R19.7 - DIARRHEA, UNSPECIFIED SNOMED Code(s): 67185076 Comment: - Started after oral magnesium supplemetation - Fecal Lactoferrin pending - Continue imodium - Monitor for dehydration. (4) PUD (peptic ulcer disease) Current Visit: No Status: Acute Code(s): K27.9 - PEPTIC ULC, SITE UNSP, UNSP AC OR CHR, W/O HEMOR OR PERF SNOMED Code(s): 42765142 Comment: - Hx of PUD - Cont PPI and Sucralfate. (5) Sinus node dysfunction Current Visit: No Status: Acute Code(s): I49.5 - SICK SINUS SYNDROME SNOMED Code(s): 37329034 Comment: - Pacemaker placed 2007 and changed 2015 (6) A-fib Current Visit: No Status: Chronic Code(s): I48.91 - UNSPECIFIED ATRIAL FIBRILLATION SNOMED Code(s): 48070378 Comment: - Cont Metoprolol and Pradaxa - Currently rate controlled (7) Diastolic heart failure Current Visit: No Status: Chronic Code(s): I50.30 - UNSPECIFIED DIASTOLIC ( CONGESTIVE) HEART FAILURE SNOMED Code(s): 243596078 Comment: - Stable - Follow up outpatient Cardiology. (8) History of CVA (cerebrovascular accident) Current Visit: No Status: Chronic Code(s): Z86.73 - PRSNL HX OF TIA (TIA), AND CEREB INFRC W/O RESID DEFICITS SNOMED Code(s): 301229377 Comment: - No neurological changes - Cont Pradaxa (9) Hypertension Current Visit: No Status: Chronic Code(s): I10 - ESSENTIAL (PRIMARY) HYPERTENSION SNOMED Code(s): 12856618 Comment: - Controlled. - Continue Metoprolol and amlodipine. (10) Orthostatic hypotension Current Visit: No Status: Chronic Code(s): I95.1 - ORTHOSTATIC HYPOTENSION SNOMED Code(s): 69426656 Comment: - Continue fludrocortisone (11) Parkinsons Current Visit: No Status: Chronic Code(s): G20 - PARKINSON'S DISEASE SNOMED Code(s): 69867374 Comment: - Continue Sinemet - PT/OT - Follow up Neurology outpatient. (12) DVT prophylaxis Current Visit: No Status: Acute Code(s): AXA6708 - SNOMED Code(s): 871021963 Comment: - SQ heparin (13) Full code status Current Visit: No Status: Acute Code(s): Z78.9 - OTHER SPECIFIED HEALTH STATUS SNOMED Code(s): 196934993 Status and Disposition: Inpatient, pending rehab due to frequent falls and high injury possibility.
[2019-07-01] MEDS: Morphine INJ* 2 MG/ML 1 ML SYRINGE (TWO MG - NEW SYRINGE VERSION) IV PRN ×2 (15:45→20:18)
[2019-07-01 16:15] LABS: Folate 11.11 ng/mL (>3.99)
--- NOTE | 2019-07-01 17:27 | CONS ---
CC: Dr. Oscar Wilson CONSULTATION REPORT: ADDENDUM: DATE OF CONSULT: 06/30/19 HISTORY OF PRESENT ILLNESS: The patient complains that the only thing that she has is her right wrist as well as her lumbar spine. PAST MEDICAL HISTORY: Parkinson's with significant dysautonomia and orthostatic hypotension; multiple falls secondary to orthostatic hypotension, the patient states in the past 6 weeks she has had a total of 3 falls; right hemispheric stroke with residual left-sided weakness; chronic AFib, on anticoagulation with Pradaxa; history of nonsustained V-tach; chronic diastolic CHF, status post pacemaker placement; appendectomy; hysterectomy; cataract surgery bilaterally; left eye surgery; history of GI bleed; dyslipidemia; TIA in December of 2017. HOME MEDICATIONS: 1. Carafate 1 g 3 times a day. 2. Amlodipine 5 mg daily. 3. Omeprazole 40 mg b.i.d. 4. Sinemet 25/100 two tab at 8 p.m., 2 tabs at 8 a.m., 1-1/2 tabs at noon, 1 tab at 4 p.m. 5. Metoprolol tartrate 50 mg p.o. b.i.d. 6. Florinef 0.1 mg daily. 7. Acetaminophen on p.r.n. basis for pain. 8. Melatonin p.r.n. at bedtime. 9. Lisinopril 20 mg daily. 10. Pradaxa 75 mg b.i.d. 11. Hydroxyzine 25 mg p.o. q.8 hours p.r.n. 12. Lexapro 5 mg daily. 13. Probiotic 1 cap b.i.d. 14. Loperamide 2 mg p.o. b.i.d. ALLERGIES: PENICILLIN and TIKOSYN. FAMILY HISTORY: Father at age 71 of [place]. Mother at age 68 of [place]. SOCIAL HISTORY: The patient lives in the downstairs of a home owned by family that she sold her house to. She does have aides come in and out throughout the day to help with cooking and cleaning. No alcohol, tobacco, or drug use. Tyler [place], her son is her surrogate decision maker. REVIEW OF SYSTEMS: General: No recent illness, fever, or chills. HEENT: The patient did hit the back of her head. She has no headache or any change in vision. Cardiac: No chest pain. No feeling of irregular beats. Respiratory: No shortness of breath. Abdomen: The patient has had diarrhea up to 6 times a day for the past few weeks. : Mild burning on urination. Extremities: Positive for pain in the right wrist. No other extremity pain. Neuro: The patient reports no numbness or tingling in the extremities. PHYSICAL EXAM: General: No acute distress, pleasant, alert and oriented x3. Vital Signs: Temperature 97.8, pulse rate 86, respiratory rate 16, oxygen saturation 97%, blood pressure 137/67. HEENT: There is dried blood with swelling occipital region of the head. No active bleeding. Eyes: Extraocular movements intact. Cardio: S1, S2. Respiratory: Clear to auscultation bilaterally. Abdomen: Soft, nontender. Bowel sounds normoactive. Extremities : Right upper extremity: There is a 1-step splint placed on the right upper extremity. All 5 digits are exposed. The patient is able to flex and extend all 5 digits. Sensation intact to light touch and capillary refill less than 2 seconds distally. Able to flex and extend at the elbow. Able to forward flex and abduct the shoulder without pain. There is no tenderness to palpation throughout the extremity and no tenderness to palpation of the right clavicle. Left upper extremity: Skin envelope intact. Nontender to palpation. Able to flex and extend digits, wrist, elbow and forward flex and abduct shoulder without pain. No tenderness over the clavicle. Midline tenderness over the lumbar spine. Lower extremities: Bilateral lower extremities with skin envelope intact. There is no tenderness to palpation. Able to flex and extend at digits, ankles, knees, hips without pain. No pain with log roll of bilateral hips. DIAGNOSTIC STUDIES/LAB DATA: Brain CT: No acute intracranial pathology. Cervical spine CT: No acute osseous injury to the cervical spine. Chest, abdomen and pelvis CT: Chronic depression deformities of the thoracic spine, chronic fracture of the sternum. No acute pathology noted. CT of the lumbar spine: No acute osseous injury to the lumbar spine. Right elbow: No obvious fracture. Right forearm x-ray demonstrates fracture of the distal diaphysis of the ulna without significant displacement. Right humerus: No fracture. Right hip and pelvis: No fracture of the right hip or pelvis. Lab studies: Hemoglobin 10.9, hematocrit 32, white count 9.2. Sodium 141, potassium 3.8, creatinine 1.31. ASSESSMENT: Right ulna fracture. PLAN: The patient should be nonweightbearing on the right upper extremity. She may range digits, elbow and shoulder as tolerated. She should elevate, ice , and rest. Splint should remain in place. We will do skin checks while she is in the hospital of the skin tear underneath the splint. She can be weightbearing as tolerated on the left upper extremity as well as bilateral lower extremities. Right wrist fracture is nonoperative. She should follow up in our clinic for repeat x-rays in 10 days to [address] Wilson. The patient can mobilize with physical therapy. If she has any significant or new pain or any new complaints, Orthopedics should be contacted. CAROL DUMONT [id number]/CPS #: [id number]
[2019-07-01] MEDS: Cyanocobalamin TAB* 500 MCG PO SCH (19:55)
[2019-07-02] MEDS ORDERED: Haloperidol INJ IV/IM* 5 MG/ML AMP IM ONE (04:40)
[2019-07-02] MEDS: Fludrocortisone Acetate TAB* 0.1 MG PO SCH (08:45)
[2019-07-02] MEDS: Carbidopa/Levodop 25/100 MG TAB(*) PO SCH ×4 (08:45→20:37)
[2019-07-02] MEDS: Metoprolol Tartrate TAB* 50 mg PO SCH ×2 (08:46→20:37)
[2019-07-02] MEDS: CMC:Dabigatran CAP(NF) 75 MG CAP PO SCH ×2 (08:46→20:37)
[2019-07-02] MEDS: Sucralfate TAB* 1 GM PO SCH ×3 (08:46→20:38)
[2019-07-02] MEDS: Escitalopram * 5 MG TAB PO SCH (08:46)
[2019-07-02] MEDS: amLODIPine TAB* 5 MG PO SCH (08:46)
[2019-07-02] MEDS: Pantoprazole TAB * 40 MG TAB PO SCH ×2 (08:46→20:37)
[2019-07-02] MEDS: Cyanocobalamin TAB* 500 MCG PO SCH (08:46)
[2019-07-02] MEDS: oxyCODONE/Acetamin 5/325 MG* TAB PO PRN ×2 (12:30→20:37)
--- NOTE | 2019-07-02 13:29 | PN ---
Subjective Date of Service: 07/02/19 Interval History: Patient this AM complains of persistent pain in her RUE without numbness or paresthesia. Patient has slight abdominal cramping and had 4 BMs overnight. Patient denies F/C, CP, SOB, dizziness, dysuria, or other pain. Patient making hopeless and depressed sounding statements to clinical care leader when asked about home situation. Family History: Unchanged from Admission Social History: Unchanged from Admission Past Medical History: Unchanged from Admission Objective Active Medications: Acetaminophen (Tylenol Tab*) 650 mg PO Q4H PRN PRN Reason: PAIN-MILD/TEMP >/= 100.4 Al Hydrox/Mg Hydrox/Simethicone (Maalox Plus*) 30 ml PO Q6H PRN PRN Reason: INDIGESTION Amlodipine Besylate (Norvasc Tab*) 5 mg PO QAM [facility] Last Admin: 07/02/19 08:46 Dose: 5 mg Carbidopa/Levodopa (Sinemet 25/100 Tab(*)) 1 tab PO DAILY@1600 [facility] Last Admin: 07/01/19 15:45 Dose: 1 tab Carbidopa/Levodopa (Sinemet 25/100 Tab(*)) 1.5 tab PO DAILY@1200 [facility] Last Admin: 07/02/19 12:30 Dose: 1.5 tab Carbidopa/Levodopa (Sinemet 25/100 Tab(*)) 2 tab PO DAILY@0800 [facility] Last Admin: 07/02/19 08:45 Dose: 2 tab Carbidopa/Levodopa (Sinemet 25/100 Tab(*)) 2 tab PO DAILY@2000 [facility] Last Admin: 07/01/19 19:57 Dose: 2 tab Cyanocobalamin (Vitamin B12 Tab*) 1,000 mcg PO DAILY [facility] Last Admin: 07/02/19 08:46 Dose: 1,000 mcg Dabigatran (Pradaxa Cap(Nf)) 75 mg PO BID [facility] Last Admin: 07/02/19 08:46 Dose: 75 mg Escitalopram Oxalate (Lexapro *) 5 mg PO DAILY [facility]; Protocol Last Admin: 07/02/19 08:46 Dose: 5 mg Fludrocortisone Acetate (Florinef Tab*) 0.1 mg PO DAILY [facility] Last Admin: 07/02/19 08:45 Dose: 0.1 mg Hydroxyzine HCl (Atarax Tab*) 25 mg PO Q6H PRN PRN Reason: ANXIETY Loperamide HCl (Imodium Cap*) 2 mg PO BID PRN PRN Reason: DIARRHEA Melatonin (Melatonin) 3 mg PO BEDTIME PRN PRN Reason: SLEEP Metoprolol Tartrate (Lopressor Tab*) 50 mg PO BID [facility] Last Admin: 07/02/19 08:46 Dose: 50 mg Morphine Sulfate (Morphine Inj (Syringe))*) 1 mg IV Q4H PRN PRN Reason: PAIN - SEVERE Last Admin: 07/01/19 20:18 Dose: 1 mg Oxycodone/Acetaminophen (Percocet 5/325 Tab*) 1 tab PO Q4H PRN PRN Reason: pain-moderate Last Admin: 07/02/19 12:30 Dose: 1 tab Pantoprazole Sodium (Protonix Tab*) 40 mg PO BID [facility] Last Admin: 07/02/19 08:46 Dose: 40 mg Senna (Senokot 8.6 Mg Tab*) 1 tab PO BID PRN PRN Reason: CONSTIPATION Sucralfate (Carafate*) 1 gm PO TID [facility] Last Admin: 07/02/19 08:46 Dose: 1 gm Vital Signs - 8 hr 07/02/19 07/02/19 07/02/19 07:15 10:45 12:30 Temperature 98.2 F 97.6 F Pulse Rate 71 95 Respiratory 18 18 17 Rate Blood Pressure 153/103 129/76 (mmHg) O2 Sat by Pulse 93 95 Oximetry Oxygen Devices in Use Now: None Appearance: Patient is an 79yo female who appears stated age and is sitting in the bed in [facility]. Eyes: No Scleral Icterus, PERRLA Ears/Nose/Mouth/Throat: NL Teeth, Lips, Gums, Clear Oropharnyx Neck: NL Appearance and Movements; NL JVP, Trachea Midline Respiratory: Symmetrical Chest Expansion and Respiratory Effort, Clear to Auscultation Cardiovascular: NL Sounds; No Murmurs; No JVD, RRR, No Edema Abdominal: NL Sounds; No Tenderness; No Distention, No Hepatosplenomegaly Lymphatic: No Cervical Adenopathy Extremities: No Edema, No Clubbing, Cyanosis, - - Right arm in splint. Good perfusion distally. Skin: No Rash or Ulcers, No Nodules or Sclerosis Neurological: Alert and Oriented x 3, NL Sensation, NL Muscle Strength and Tone , - - Slight tremor. Result Diagrams: 07/01/19 09:59 07/01/19 05:42 Microbiology and Other Data: Microbiology 07/02/19 03:00 Stool Gross Appearance - Final Stool Stool Lactoferrin - Final 06/30/19 13:09 Urine Culture - Final Urine Assess/Plan/Problems-Billing Assessment: Patient is an 79yo female with a PMH for parkinson's, CVA, Falls, HFpEF, here with falls and humerus fracture, pending rehab. - Patient Problems (1) Falls Current Visit: Yes Status: Acute Comment: - Frequent, at least weekly - Likely combination of autonomic dysfunction and poor balance from Parkinson's disease - PT/OT, continue Sinemet and Florinef. - PMRU eval. (2) Right distal ulnar fracture Current Visit: Yes Status: Acute Code(s): S52.601A - UNSP FRACTURE OF LOWER END OF RIGHT ULNA, INIT FOR CLOS FX SNOMED Code(s): 082341594 Comment: - MOISES BARRERA, Appreciate Orthopedic input, will do full cast before D/C. - Due to fall with no other injury. (3) Diarrhea Current Visit: Yes Status: Acute Code(s): R19.7 - DIARRHEA, UNSPECIFIED SNOMED Code(s): 13602910 Comment: - Started after oral magnesium supplemetation - Fecal Lactoferrin positive. C. Diff previously negative. Recheck O/P. - Start Probiotic. Stop Magnesium and cholestyramine. - Continue imodium - Monitor for dehydration. (4) PUD (peptic ulcer disease) Current Visit: No Status: Acute Code(s): K27.9 - PEPTIC ULC, SITE UNSP, UNSP AC OR CHR, W/O HEMOR OR PERF SNOMED Code(s): 58700824 Comment: - Hx of PUD - Cont PPI and Sucralfate. (5) Sinus node dysfunction Current Visit: No Status: Acute Code(s): I49.5 - SICK SINUS SYNDROME SNOMED Code(s): 82065348 Comment: - Pacemaker placed 2007 and changed 2015 (6) A-fib Current Visit: No Status: Chronic Code(s): I48.91 - UNSPECIFIED ATRIAL FIBRILLATION SNOMED Code(s): 25090190 Comment: - Cont Metoprolol and Pradaxa - Currently rate controlled (7) Diastolic heart failure Current Visit: No Status: Chronic Code(s): I50.30 - UNSPECIFIED DIASTOLIC ( CONGESTIVE) HEART FAILURE SNOMED Code(s): 535728515 Comment: - Stable - Follow up outpatient Cardiology. (8) History of CVA (cerebrovascular accident) Current Visit: No Status: Chronic Code(s): Z86.73 - PRSNL HX OF TIA (TIA), AND CEREB INFRC W/O RESID DEFICITS SNOMED Code(s): 530016826 Comment: - No neurological changes - Cont Pradaxa (9) Hypertension Current Visit: No Status: Chronic Code(s): I10 - ESSENTIAL (PRIMARY) HYPERTENSION SNOMED Code(s): 29450672 Comment: - Controlled. - Continue Metoprolol and amlodipine. (10) Orthostatic hypotension Current Visit: No Status: Chronic Code(s): I95.1 - ORTHOSTATIC HYPOTENSION SNOMED Code(s): 85651703 Comment: - Continue fludrocortisone (11) Parkinsons Current Visit: No Status: Chronic Code(s): G20 - PARKINSON'S DISEASE SNOMED Code(s): 05940974 Comment: - Continue Sinemet - PT/OT - Follow up Neurology outpatient. (12) DVT prophylaxis Current Visit: No Status: Acute Code(s): HVE2555 - SNOMED Code(s): 553641449 Comment: - SQ heparin (13) Full code status Current Visit: No Status: Acute Code(s): Z78.9 - OTHER SPECIFIED HEALTH STATUS SNOMED Code(s): 694767559 Status and Disposition: Inpatient, pending rehab due to frequent falls and high injury possibility.
[2019-07-02] MEDS: Melatonin 3 MG TAB PO PRN (20:37)
[2019-07-03 06:20] LABS: ABS Eosinophils 0.1 10^3/ul (0-0.6); ABS Lymphocytes 0.7 10^3/ul (1.0-4.8); ABS Neutrophils 8.6 10^3/ul (1.5-7.7); Eosinophil % 0.5 %; Hematocrit 31 % (35-47); Hemoglobin 10.4 g/dL (12.0-16.0); Lymphocyte % 7.1 %; Mean Corpuscular HGB Conc 34 g/dL (31-36); Mean Corpuscular Hemoglobin 32 pg (27-31); Mean Corpuscular Volume 95 fL (80-97); Mean Platelet Volume 8.3 fL (7.4-10.4); Platelet Count 237 10^3/uL (150-450); Red Blood Count 3.23 10^6 /uL (3.70-4.87); Red Cell Distribution Width 15 % (10-15); White Blood Count 10.4 10^3/uL (3.5-10.8)
[2019-07-03 06:38] LABS: BUN/Creatinine Ratio 17.2 (8-20); Calcium 8.8 mg/dL (8.6-10.3); EGFR African American 75.6 (>60); EGFR Non-African American 62.5 (>60); Magnesium 1.4 mg/dL (1.9-2.7); Potassium 3.2 mmol/L (3.5-5.0)
[2019-07-03] MEDS ORDERED: Magnesium Sulf 4 GM/100 ML IV* 4,000 MG/100 ML BAG IVPB ONE (07:57)
[2019-07-03] MEDS: CMC:Dabigatran CAP(NF) 75 MG CAP PO SCH ×2 (08:23→20:53)
[2019-07-03] MEDS: Potassium Chloride* LIQUID 20 MEQ/15 ML UDC PO ONE ×2 (08:23→08:29)
[2019-07-03] MEDS: Escitalopram * 5 MG TAB PO SCH (08:23)
[2019-07-03] MEDS: Pantoprazole TAB * 40 MG TAB PO SCH ×2 (08:23→20:53)
[2019-07-03] MEDS: Metoprolol Tartrate TAB* 50 mg PO SCH ×2 (08:23→20:53)
[2019-07-03] MEDS: amLODIPine TAB* 5 MG PO SCH (08:23)
[2019-07-03] MEDS: Sucralfate TAB* 1 GM PO SCH ×3 (08:23→20:53)
[2019-07-03] MEDS: Cyanocobalamin TAB* 500 MCG PO SCH (08:23)
[2019-07-03] MEDS: Fludrocortisone Acetate TAB* 0.1 MG PO SCH (08:23)
[2019-07-03] MEDS: Acetaminophen TAB* 325 MG PO PRN (08:24)
[2019-07-03] MEDS: Carbidopa/Levodop 25/100 MG TAB(*) PO SCH ×4 (08:24→20:53)
[2019-07-03] MEDS ORDERED: Potassium Chlor TAB* 20 MEQ TAB.ER PO ONE (08:30)
--- NOTE | 2019-07-03 12:18 | PN ---
Subjective Date of Service: 07/03/19 Interval History: Patient states the pain in her arm is diminished, but not gone. Patient has pain in her chest with movement and palpation, which is consistent with a ligamentous injury she previously had her sternum. Patient denies SOB, dizziness , abdominal pain, dysuria, or other pain. Patient had 3 BMs with increased form in the past 24 hours. Patient states her mood is better today. Patient has some short term memory issues and needs to be reminded that she is going to a [facility] twice during this conversation. Family History: Unchanged from Admission Social History: Unchanged from Admission Past Medical History: Unchanged from Admission Objective Active Medications: Acetaminophen (Tylenol Tab*) 650 mg PO Q4H PRN PRN Reason: PAIN-MILD/TEMP >/= 100.4 Last Admin: 07/03/19 08:24 Dose: 650 mg Al Hydrox/Mg Hydrox/Simethicone (Maalox Plus*) 30 ml PO Q6H PRN PRN Reason: INDIGESTION Amlodipine Besylate (Norvasc Tab*) 5 mg PO QAM [facility] Last Admin: 07/03/19 08:23 Dose: 5 mg Carbidopa/Levodopa (Sinemet 25/100 Tab(*)) 1 tab PO DAILY@1600 [facility] Last Admin: 07/02/19 16:25 Dose: 1 tab Carbidopa/Levodopa (Sinemet 25/100 Tab(*)) 1.5 tab PO DAILY@1200 [facility] Last Admin: 07/02/19 12:30 Dose: 1.5 tab Carbidopa/Levodopa (Sinemet 25/100 Tab(*)) 2 tab PO DAILY@0800 [facility] Last Admin: 07/03/19 08:24 Dose: 2 tab Carbidopa/Levodopa (Sinemet 25/100 Tab(*)) 2 tab PO DAILY@2000 [facility] Last Admin: 07/02/19 20:37 Dose: 2 tab Cyanocobalamin (Vitamin B12 Tab*) 1,000 mcg PO DAILY [facility] Last Admin: 07/03/19 08:23 Dose: 1,000 mcg Dabigatran (Pradaxa Cap(Nf)) 75 mg PO BID [facility] Last Admin: 07/03/19 08:23 Dose: 75 mg Escitalopram Oxalate (Lexapro *) 5 mg PO DAILY [facility]; Protocol Last Admin: 07/03/19 08:23 Dose: 5 mg Fludrocortisone Acetate (Florinef Tab*) 0.1 mg PO DAILY [facility] Last Admin: 07/03/19 08:23 Dose: 0.1 mg Hydroxyzine HCl (Atarax Tab*) 25 mg PO Q6H PRN PRN Reason: ANXIETY Loperamide HCl (Imodium Cap*) 2 mg PO BID PRN PRN Reason: DIARRHEA Melatonin (Melatonin) 3 mg PO BEDTIME PRN PRN Reason: SLEEP Last Admin: 07/02/19 20:37 Dose: 3 mg Metoprolol Tartrate (Lopressor Tab*) 50 mg PO BID [facility] Last Admin: 07/03/19 08:23 Dose: 50 mg Morphine Sulfate (Morphine Inj (Syringe))*) 1 mg IV Q4H PRN PRN Reason: PAIN - SEVERE Last Admin: 07/01/19 20:18 Dose: 1 mg Oxycodone/Acetaminophen (Percocet 5/325 Tab*) 1 tab PO Q4H PRN PRN Reason: pain-moderate Last Admin: 07/02/19 20:37 Dose: 1 tab Pantoprazole Sodium (Protonix Tab*) 40 mg PO BID [facility] Last Admin: 07/03/19 08:23 Dose: 40 mg Senna (Senokot 8.6 Mg Tab*) 1 tab PO BID PRN PRN Reason: CONSTIPATION Sucralfate (Carafate*) 1 gm PO TID [facility] Last Admin: 07/03/19 08:23 Dose: 1 gm Vital Signs - 8 hr 07/03/19 07/03/19 07:15 08:00 Temperature 98.1 F Pulse Rate 92 Respiratory 20 18 Rate Blood Pressure 170/100 (mmHg) O2 Sat by Pulse 96 Oximetry Oxygen Devices in Use Now: None Appearance: Patient is an 79yo female who appears stated age and is sitting in the bed in [facility]. Eyes: No Scleral Icterus, PERRLA Ears/Nose/Mouth/Throat: NL Teeth, Lips, Gums, Clear Oropharnyx, Mucous Membranes Moist Neck: NL Appearance and Movements; NL JVP, Trachea Midline Respiratory: Symmetrical Chest Expansion and Respiratory Effort, Clear to Auscultation Cardiovascular: NL Sounds; No Murmurs; No JVD, No Edema, - - Tachycardia, irregular rhythm. Abdominal: NL Sounds; No Tenderness; No Distention, No Hepatosplenomegaly Lymphatic: No Cervical Adenopathy Extremities: No Edema, No Clubbing, Cyanosis Skin: No Rash or Ulcers, No Nodules or Sclerosis Neurological: Alert and Oriented x 3, NL Sensation, NL Muscle Strength and Tone , - - CN II-XII intact. Result Diagrams: 07/03/19 06:05 07/03/19 06:05 Microbiology and Other Data: Microbiology 07/02/19 03:00 Stool Gross Appearance - Final Stool Stool Lactoferrin - Final 06/30/19 13:09 Urine Culture - Final Urine Assess/Plan/Problems-Billing Assessment: Patient is an 79yo female with a PMH for parkinson's, CVA, Falls, HFpEF, here with falls and humerus fracture, pending rehab. - Patient Problems (1) Falls Current Visit: Yes Status: Acute Comment: - Frequent, at least weekly - Likely combination of autonomic dysfunction and poor balance from Parkinson's disease - PT/OT, continue Sinemet and Florinef. - Will need [facility] and additional support at home as patient is at high risk for serious injury with falls. (2) Right distal ulnar fracture Current Visit: Yes Status: Acute Code(s): S52.601A - UNSP FRACTURE OF LOWER END OF RIGHT ULNA, INIT FOR CLOS FX SNOMED Code(s): 952408248 Comment: - MOISES BARRERA, Appreciate Orthopedic input, will do full cast before D/C. - Due to fall with no other injury. (3) Diarrhea Current Visit: Yes Status: Acute Code(s): R19.7 - DIARRHEA, UNSPECIFIED SNOMED Code(s): 21410765 Comment: - Started after oral magnesium supplemetation - Fecal Lactoferrin positive. C. Diff previously negative. Recheck O/P negative. - Start Probiotic. Stop Magnesium and cholestyramine. - Continue imodium - Improving. CT A/P this admission shows no inflammation, low concern for IBD - Outpatient F/U - Monitor for dehydration. (4) PUD (peptic ulcer disease) Current Visit: No Status: Acute Code(s): K27.9 - PEPTIC ULC, SITE UNSP, UNSP AC OR CHR, W/O HEMOR OR PERF SNOMED Code(s): 38733281 Comment: - Hx of PUD - Cont PPI and Sucralfate. (5) Sinus node dysfunction Current Visit: No Status: Acute Code(s): I49.5 - SICK SINUS SYNDROME SNOMED Code(s): 88190925 Comment: - Pacemaker placed 2007 and changed 2015 (6) A-fib Current Visit: No Status: Chronic Code(s): I48.91 - UNSPECIFIED ATRIAL FIBRILLATION SNOMED Code(s): 70318483 Comment: - Cont Metoprolol and Pradaxa - Currently rate controlled (7) Diastolic heart failure Current Visit: No Status: Chronic Code(s): I50.30 - UNSPECIFIED DIASTOLIC ( CONGESTIVE) HEART FAILURE SNOMED Code(s): 508533167 Comment: - Stable - Follow up outpatient Cardiology. (8) History of CVA (cerebrovascular accident) Current Visit: No Status: Chronic Code(s): Z86.73 - PRSNL HX OF TIA (TIA), AND CEREB INFRC W/O RESID DEFICITS SNOMED Code(s): 088889571 Comment: - No neurological changes - Cont Pradaxa (9) Hypertension Current Visit: No Status: Chronic Code(s): I10 - ESSENTIAL (PRIMARY) HYPERTENSION SNOMED Code(s): 25640206 Comment: - Controlled. - Continue Metoprolol and amlodipine. (10) Orthostatic hypotension Current Visit: No Status: Chronic Code(s): I95.1 - ORTHOSTATIC HYPOTENSION SNOMED Code(s): 75662864 Comment: - Continue fludrocortisone (11) Parkinsons Current Visit: No Status: Chronic Code(s): G20 - PARKINSON'S DISEASE SNOMED Code(s): 45292202 Comment: - Continue Sinemet - PT/OT - Follow up Neurology outpatient. (12) DVT prophylaxis Current Visit: No Status: Acute Code(s): EBG0059 - SNOMED Code(s): 368236555 Comment: - Pradaxa (13) Full code status Current Visit: No Status: Acute Code(s): Z78.9 - OTHER SPECIFIED HEALTH STATUS SNOMED Code(s): 700669874 Status and Disposition: Inpatient, pending rehab due to frequent falls and high injury possibility. Likely D/C Friday.
--- NOTE | 2019-07-03 12:59 | PN ---
Progress Note - Progress Note Date of Service: 07/03/19 SOAP: Subjective: Pain reduced. Objective: R wrist - minimal swelling - small dorsal skin tear, partial thickness skin without signs of infection - NVID Selected Entries 07/03/19 07:15 Temperature 98.1 F Pulse Rate 92 Respiratory 20 Rate Blood Pressure 170/100 (mmHg) O2 Sat by Pulse 96 Oximetry Assessment: R distal ulna fracture, minimally displaced Plan: - Placed a short arm cast using Fiberglass - Follow up with me in 1-2 weeks in clinic for xrays - Partial weight bearing right upper extremity
[2019-07-03] MEDS: oxyCODONE/Acetamin 5/325 MG* TAB PO PRN (20:53)
[2019-07-03] MEDS: Melatonin 3 MG TAB PO PRN (20:53)
[2019-07-04] MEDS: Pantoprazole TAB * 40 MG TAB PO SCH ×2 (08:22→21:04)
[2019-07-04] MEDS: Carbidopa/Levodop 25/100 MG TAB(*) PO SCH ×4 (08:22→21:09)
[2019-07-04] MEDS: Escitalopram * 5 MG TAB PO SCH (08:22)
[2019-07-04] MEDS: Sucralfate TAB* 1 GM PO SCH ×3 (08:22→21:01)
[2019-07-04] MEDS: Metoprolol Tartrate TAB* 50 mg PO SCH ×2 (08:22→21:04)
[2019-07-04] MEDS: Cyanocobalamin TAB* 500 MCG PO SCH (08:22)
[2019-07-04] MEDS: CMC:Dabigatran CAP(NF) 75 MG CAP PO SCH ×2 (08:22→21:02)
[2019-07-04] MEDS: amLODIPine TAB* 5 MG PO SCH (08:22)
[2019-07-04] MEDS: Fludrocortisone Acetate TAB* 0.1 MG PO SCH (08:22)
[2019-07-04] MEDS ORDERED: Magnesium Sulf 4 GM/100 ML IV* 4,000 MG/100 ML BAG IVPB ONE (09:03)
[2019-07-04] MEDS ORDERED: Potassium Chlor TAB* 20 MEQ TAB.ER PO ONE (09:04)
--- NOTE | 2019-07-04 09:08 | PN ---
Subjective Date of Service: 07/04/19 Interval History: patient reports that she is feeling well. reports that that she feels like she is having hallucinations during the night and says things that are not true, reports that it is from the morphine and oxycodone. Denies chest pain or shortness of breath. Denies abd pain n/v/d. denies fever or chills. Family History: Unchanged from Admission Social History: Unchanged from Admission Past Medical History: Unchanged from Admission Objective Active Medications: Acetaminophen (Tylenol Tab*) 650 mg PO Q4H PRN PRN Reason: PAIN-MILD/TEMP >/= 100.4 Last Admin: 07/03/19 08:24 Dose: 650 mg Al Hydrox/Mg Hydrox/Simethicone (Maalox Plus*) 30 ml PO Q6H PRN PRN Reason: INDIGESTION Amlodipine Besylate (Norvasc Tab*) 5 mg PO QAM [facility] Last Admin: 07/04/19 08:22 Dose: 5 mg Carbidopa/Levodopa (Sinemet 25/100 Tab(*)) 1 tab PO DAILY@1600 [facility] Last Admin: 07/03/19 17:00 Dose: 1 tab Carbidopa/Levodopa (Sinemet 25/100 Tab(*)) 1.5 tab PO DAILY@1200 [facility] Last Admin: 07/03/19 13:03 Dose: 1.5 tab Carbidopa/Levodopa (Sinemet 25/100 Tab(*)) 2 tab PO DAILY@0800 [facility] Last Admin: 07/04/19 08:22 Dose: 2 tab Carbidopa/Levodopa (Sinemet 25/100 Tab(*)) 2 tab PO DAILY@2000 [facility] Last Admin: 07/03/19 20:53 Dose: 2 tab Cyanocobalamin (Vitamin B12 Tab*) 1,000 mcg PO DAILY [facility] Last Admin: 07/04/19 08:22 Dose: 1,000 mcg Dabigatran (Pradaxa Cap(Nf)) 75 mg PO BID [facility] Last Admin: 07/04/19 08:22 Dose: 75 mg Escitalopram Oxalate (Lexapro *) 5 mg PO DAILY [facility]; Protocol Last Admin: 07/04/19 08:22 Dose: 5 mg Fludrocortisone Acetate (Florinef Tab*) 0.1 mg PO DAILY [facility] Last Admin: 07/04/19 08:22 Dose: 0.1 mg Hydroxyzine HCl (Atarax Tab*) 25 mg PO Q6H PRN PRN Reason: ANXIETY Magnesium Sulfate (Magnesium Sulf 4 Gm/100 Ml Iv*) 4,000 mg in 100 mls @ 33.333 mls/hr IVPB ONCE ONE Stop: 07/04/19 12:02 Potassium Chloride (Potassium Chloride 20 Meq/100 Ml Ivpremix*) 20 meq in 100 mls @ 50 mls/hr IV Q2H [facility] Stop: 07/04/19 13:59 Loperamide HCl (Imodium Cap*) 2 mg PO BID PRN PRN Reason: DIARRHEA Melatonin (Melatonin) 3 mg PO BEDTIME PRN PRN Reason: SLEEP Last Admin: 07/03/19 20:53 Dose: 3 mg Metoprolol Tartrate (Lopressor Tab*) 50 mg PO BID [facility] Last Admin: 07/04/19 08:22 Dose: 50 mg Morphine Sulfate (Morphine Inj (Syringe))*) 1 mg IV Q4H PRN PRN Reason: PAIN - SEVERE Last Admin: 07/01/19 20:18 Dose: 1 mg Oxycodone/Acetaminophen (Percocet 5/325 Tab*) 1 tab PO Q4H PRN PRN Reason: pain-moderate Last Admin: 07/03/19 20:53 Dose: 1 tab Pantoprazole Sodium (Protonix Tab*) 40 mg PO BID [facility] Last Admin: 07/04/19 08:22 Dose: 40 mg Senna (Senokot 8.6 Mg Tab*) 1 tab PO BID PRN PRN Reason: CONSTIPATION Sucralfate (Carafate*) 1 gm PO TID [facility] Last Admin: 07/04/19 08:22 Dose: 1 gm Vital Signs - 8 hr 07/04/19 07/04/19 04:06 07:15 Temperature 97.9 F 98.7 F Pulse Rate 124 120 Respiratory 16 20 Rate Blood Pressure 147/94 166/93 (mmHg) O2 Sat by Pulse 96 94 Oximetry Oxygen Devices in Use Now: None Appearance: alert and oriented x 3 , no acute distress Eyes: No Scleral Icterus Ears/Nose/Mouth/Throat: Clear Oropharnyx, Mucous Membranes Moist Neck: NL Appearance and Movements; NL JVP, Trachea Midline Respiratory: Symmetrical Chest Expansion and Respiratory Effort, Clear to Auscultation Cardiovascular: NL Sounds; No Murmurs; No JVD, No Edema Abdominal: NL Sounds; No Tenderness; No Distention Extremities: No Edema, No Clubbing, Cyanosis, - - slight swelling noted to right finger, sensation and movement intact , cast inplace to right forearm. Skin: No Rash or Ulcers Neurological: Alert and Oriented x 3 Nutrition: Taking PO's Result Diagrams: 07/03/19 06:05 07/03/19 06:05 Microbiology and Other Data: Microbiology 07/02/19 03:00 Stool Gross Appearance - Final Stool Stool Lactoferrin - Final 06/30/19 13:09 Urine Culture - Final Urine Assess/Plan/Problems-Billing Assessment: Patient is an 79yo female with a PMH for parkinson's, CVA, Falls, HFpEF, here with falls and humerus fracture, pending rehab. - Patient Problems (1) Falls Current Visit: Yes Status: Acute Comment: - Frequent, at least weekly - Likely combination of autonomic dysfunction and poor balance from Parkinson's disease - PT/OT, continue Sinemet and Florinef. - Will need [facility]UEL and additional support at home as patient is at high risk for serious injury with falls. (2) Right distal ulnar fracture Current Visit: Yes Status: Acute Code(s): S52.601A - UNSP FRACTURE OF LOWER END OF RIGHT ULNA, INIT FOR CLOS FX SNOMED Code(s): 488355838 Comment: - MOISES BARRERA, Appreciate Orthopedic input, will do full cast before D/C. - Due to fall with no other injury. (3) Diarrhea Current Visit: Yes Status: Acute Code(s): R19.7 - DIARRHEA, UNSPECIFIED SNOMED Code(s): 91563128 Comment: - improving - Started after oral magnesium supplemetation - Fecal Lactoferrin positive. C. Diff previously negative. Recheck O/P negative. - Start Probiotic. Stop Magnesium and cholestyramine. - Continue imodium - Improving. CT A/P this admission shows no inflammation, low concern for IBD - Outpatient F/U - Monitor for dehydration. (4) PUD (peptic ulcer disease) Current Visit: No Status: Acute Code(s): K27.9 - PEPTIC ULC, SITE UNSP, UNSP AC OR CHR, W/O HEMOR OR PERF SNOMED Code(s): 25668848 Comment: - Hx of PUD - Cont PPI and Sucralfate. (5) Sinus node dysfunction Current Visit: No Status: Acute Code(s): I49.5 - SICK SINUS SYNDROME SNOMED Code(s): 84291520 Comment: - Pacemaker placed 2007 and changed 2015 (6) Diastolic heart failure Current Visit: No Status: Chronic Code(s): I50.30 - UNSPECIFIED DIASTOLIC ( CONGESTIVE) HEART FAILURE SNOMED Code(s): 885303111 Comment: - Stable - Follow up outpatient Cardiology. (7) History of CVA (cerebrovascular accident) Current Visit: No Status: Chronic Code(s): Z86.73 - PRSNL HX OF TIA (TIA), AND CEREB INFRC W/O RESID DEFICITS SNOMED Code(s): 984046508 Comment: - No neurological changes - Cont Pradaxa (8) Hypertension Current Visit: No Status: Chronic Code(s): I10 - ESSENTIAL (PRIMARY) HYPERTENSION SNOMED Code(s): 21256720 Comment: - Controlled. - Continue Metoprolol and amlodipine. (9) Orthostatic hypotension Current Visit: No Status: Chronic Code(s): I95.1 - ORTHOSTATIC HYPOTENSION SNOMED Code(s): 34234151 Comment: - Continue fludrocortisone (10) Parkinsons Current Visit: No Status: Chronic Code(s): G20 - PARKINSON'S DISEASE SNOMED Code(s): 16442360 Comment: - Continue Sinemet - PT/OT - Follow up Neurology outpatient. (11) DVT prophylaxis Current Visit: No Status: Acute Code(s): EQO1666 - SNOMED Code(s): 758419929 Comment: - Pradaxa (12) Full code status Current Visit: No Status: Acute Code(s): Z78.9 - OTHER SPECIFIED HEALTH STATUS SNOMED Code(s): 140997999 (13) Hypokalemia Current Visit: Yes Status: Acute Code(s): E87.6 - HYPOKALEMIA SNOMED Code( s): 55410631 Comment: potassium 3.1 today - willgiven oral and IV potassium replacement and repeat BMP in the AM (14) Hypomagnesemia Current Visit: Yes Status: Acute Code(s): E83.42 - HYPOMAGNESEMIA SNOMED Code(s): 175206964 Comment: magnesium 1.4 today - will give 4 grams of magnesium and repeat in the AM Status and Disposition: Inpatient, pending rehab due to frequent falls and high injury possibility. Likely D/C Friday.
[2019-07-04] MEDS: KCL 20 MEQ/100 ML IVPREMIX* 20 MEQ/100 ML BAG IV SCH ×2 (10:34→17:36)
--- NOTE | 2019-07-04 11:16 | PN ---
Progress Note - Progress Note Date of Service: 07/04/19 SOAP: Subjective: [Patient seen today OOB sitting in chair. Pain well controlled with meds. No issues with the cast. Denies CP, SOB, f/c, n/v.] Objective: [Gen: NAD. Alert. LUE: Fiberglass cast intact. Sensation to light touch intact distally. Cap refill brisk. No pain with flex/ext of elbow. ] Assessment: R distal ulna fracture, minimally displaced Plan: - Fiberglass cast placed yesterday - Follow up with Dr. Wilson in clinic in 1-2 weeks - Partial weight bearing right upper extremity - Dispo per hosp Laboratory Last Values WBC 10.4 10^3/uL (3.5-10.8) 07/03/19 06:05 RBC 3.23 10^6 /uL (3.70-4.87) L 07/03/19 06:05 Hgb 10.4 g/dL (12.0-16.0) L 07/03/19 06:05 Hct 31 % (35-47) L 07/03/19 06:05 MCV 95 fL (80-97) 07/03/19 06:05 MCH 32 pg (27-31) H 07/03/19 06:05 MCHC 34 g/dL (31-36) 07/03/19 06:05 RDW 15 % (10-15) 07/03/19 06:05 Plt Count 237 10^3/uL (150-450) 07/03/19 06:05 MPV 8.3 fL (7.4-10.4) 07/03/19 06:05 Neut % (Auto) 82.6 % 07/03/19 06:05 Lymph % (Auto) 7.1 % 07/03/19 06:05 Mccracken % (Auto) 9.4 % 07/03/19 06:05 Eos % (Auto) 0.5 % 07/03/19 06:05 Baso % (Auto) 0.4 % 07/03/19 06:05 Absolute Neuts (auto) 8.6 10^3/ul (1.5-7.7) H 07/03/19 06:05 Absolute Lymphs (auto) 0.7 10^3/ul (1.0-4.8) L 07/03/19 06:05 Absolute Monos (auto) 1.0 10^3/ul (0-0.8) H 07/03/19 06:05 Absolute Eos (auto) 0.1 10^3/ul (0-0.6) 07/03/19 06:05 Absolute Basos (auto) 0.0 10^3/ul (0-0.2) 07/03/19 06:05 Absolute Nucleated RBC 0.0 10^3/ul 07/03/19 06:05 Nucleated RBC % 0.0 07/03/19 06:05 Sodium 139 mmol/L (135-145) 07/03/19 06:05 Potassium 3.2 mmol/L (3.5-5.0) L 07/03/19 06:05 Chloride 107 mmol/L (101-111) 07/03/19 06:05 Carbon Dioxide 25 mmol/L (22-32) 07/03/19 06:05 Anion Gap 7 mmol/L (2-11) 07/03/19 06:05 BUN 15 mg/dL (6-24) 07/03/19 06:05 Creatinine 0.87 mg/dL (0.51-0.95) 07/03/19 06:05 Est GFR ( Amer) 75.6 (>60) 07/03/19 06:05 Est GFR (Non-Af Amer) 62.5 (>60) 07/03/19 06:05 BUN/Creatinine Ratio 17.2 (8-20) 07/03/19 06:05 Glucose 106 mg/dL (70-100) H 07/03/19 06:05 Calcium 8.8 mg/dL (8.6-10.3) 07/03/19 06:05 Magnesium 1.4 mg/dL (1.9-2.7) L 07/03/19 06:05 Total Bilirubin 0.60 mg/dL (0.2-1.0) 06/30/19 10:47 AST 11 U/L (13-39) L 06/30/19 10:47 ALT < 3 U/L (7-52) L 06/30/19 10:47 Alkaline Phosphatase 69 U/L (34-104) 06/30/19 10:47 Total Protein 6.6 g/dL (6.4-8.9) 06/30/19 10:47 Albumin 4.0 g/dL (3.2-5.2) 06/30/19 10:47 Globulin 2.6 g/dL (2-4) 06/30/19 10:47 Albumin/Globulin Ratio 1.5 (1-3) 06/30/19 10:47 Lipase 30 U/L (11.0-82.0) 06/30/19 10:47 Vitamin B12 191 pg/mL (180-914) 07/01/19 05:42 Folate 11.11 ng/mL (>3.99) 07/01/19 05:42 Urine Color Yellow 06/30/19 13:09 Urine Appearance Cloudy 06/30/19 13:09 Urine pH 6.0 (5-9) 06/30/19 13:09 Ur Specific Campus 1.031 (1.010-1.030) H 06/30/19 13:09 Urine Protein Negative (Negative) 06/30/19 13:09 Urine Ketones Negative (Negative) 06/30/19 13:09 Urine Blood 1+ (Negative) A 06/30/19 13:09 Urine Nitrate Negative (Negative) 06/30/19 13:09 Urine Bilirubin Negative (Negative) 06/30/19 13:09 Urine Urobilinogen Negative (Negative) 06/30/19 13:09 Ur Leukocyte Esterase Trace (Negative) A 06/30/19 13:09 Urine WBC (Auto) Trace(0-5/hpf) (Absent) 06/30/19 13:09 Urine RBC (Auto) Absent (Absent) 06/30/19 13:09 Ur Squamous Epith Cells Present (Absent) A 06/30/19 13:09 Urine Bacteria Absent (Absent) 06/30/19 13:09 Urine Glucose Negative (Negative) 06/30/19 13:09 Vital Signs Temp Pulse Resp BP Pulse Ox 98.7 F 120 20 166/93 94 07/04/19 07:15 07/04/19 07:15 07/04/19 07:15 07/04/19 07:15 07/04/19 07:15
[2019-07-04] MEDS: Acetaminophen TAB* 325 MG PO PRN (21:03)
[2019-07-04] MEDS: Melatonin 3 MG TAB PO PRN (21:04)
[2019-07-05 06:40] LABS: BUN/Creatinine Ratio 16.3 (8-20); EGFR African American 76.6 (>60); EGFR Non-African American 63.3 (>60); Potassium 3.7 mmol/L (3.5-5.0)
[2019-07-05] MEDS: Metoprolol Tartrate TAB* 50 mg PO SCH ×2 (08:26→20:13)
[2019-07-05] MEDS: CMC:Dabigatran CAP(NF) 75 MG CAP PO SCH ×2 (08:26→20:14)
[2019-07-05] MEDS: Carbidopa/Levodop 25/100 MG TAB(*) PO SCH ×4 (08:26→20:14)
[2019-07-05] MEDS: Escitalopram * 5 MG TAB PO SCH (08:26)
[2019-07-05] MEDS: Cyanocobalamin TAB* 500 MCG PO SCH (08:27)
[2019-07-05] MEDS: Pantoprazole TAB * 40 MG TAB PO SCH ×2 (08:27→20:14)
[2019-07-05] MEDS: Fludrocortisone Acetate TAB* 0.1 MG PO SCH (08:27)
[2019-07-05] MEDS: amLODIPine TAB* 5 MG PO SCH (08:27)
[2019-07-05] MEDS: Sucralfate TAB* 1 GM PO SCH ×3 (08:27→20:14)
--- NOTE | 2019-07-05 16:58 | DS ---
DISCHARGE SUMMARY: DATE OF ADMISSION: 06/30/19 DATE OF DISCHARGE: 07/06/19 PROVIDER: Radha River NP PRIMARY CARE PROVIDER: Dr. Scales. ORTHOPEDIC PROVIDER: Dr. Wilson. ATTENDING PHYSICIAN WHILE IN THE HOSPITAL: Dr. Jayme Guzman * (dictated by Radha River NP). PRIMARY DIAGNOSES: 1. Fall. 2. Right distal ulnar fracture. 3. Diarrhea. 4. Hypokalemia. 5. Hypomagnesemia. SECONDARY DIAGNOSES: 1. Peptic ulcer disease. 2. Sinus node dysfunction. 3. Diastolic congestive heart failure. 4. History of cerebrovascular accident. 5. Hypertension. 6. Orthostatic hypotension. 7. Parkinson's. STUDIES COMPLETED WHILE IN THE HOSPITAL: She had a CT of the brain on 06/30/19 , radiologist's impression: No acute intracranial pathology, small soft tissue swelling, stable chronic infarct. She had a CT of the cervical spine, radiologist's impression: Osteopenia, degenerative disk disease, and osteoarthritis. No acute osseous injury to the cervical spine. She had a CT of the abdomen and pelvis: Cardiomegaly, atherosclerosis, chronic compression deformity of the thoracic spine, chronic fracture of the sternum. No acute CT pathology visualized in the chest, abdomen, or pelvis. She had a CT of the lumbar spine, radiologist's impression: Osteopenia, scoliosis, degenerative disk disease, and osteoarthritis. No acute osseous injury to the lumbar spine. She had an elbow x-ray, right elbow: Single lateral view of the right elbow demonstrates question joint effusion. No obvious fracture is noted, although this is limited. She had a forearm x-ray: Fracture of the distal ulna without significant displacement. She had a wrist x-ray: Fracture of the distal ulna without significant displacement. She had a repeat elbow x-ray that showed no definite fracture. She had a humerus x-ray on 06/30/19, radiologist's impression: No definite fracture of the right humerus. She had a hip and pelvis x-ray: No fracture of the right hip or pelvis is noted. DISCHARGE MEDICATIONS: No new home medications. Continued home medications: 1. Carafate 1 g p.o. t.i.d. 2. Amlodipine 5 mg p.o. daily. 3. Omeprazole 40 mg p.o. b.i.d. 4. Carbidopa/levodopa 25/100- 2 tabs at 8am, 1.5 tablets at noon, 1 tablet at 4pm, and 2 tablets at 8 p.m. . 5. Metoprolol 50 mg p.o. b.i.d. 6. Florinef 0.1 mg p.o. daily. 7. Acetaminophen 650 mg p.o. q.4 hours as needed. 8. Melatonin 1 tablet at bedtime p.r.n. 9. Pradaxa 75 mg p.o. b.i.d. 10. Atarax 25 mg p.o. every 6 to 8 hours. 11. Lexapro 5 mg p.o. daily. 12. Lactobacillus probiotic 1 tablet p.o. b.i.d. 13. Imodium 2 mg p.o. b.i.d. p.r.n. 14. Vitamin B12 1000 mcg p.o. daily. 15. Maalox 30 mL p.o. q.6 hours as needed. Discontinued medication: Lisinopril 20 mg p.o. daily. HISTORY OF PRESENT ILLNESS AND HOSPITAL COURSE: Ms. Phelan is an 79-year-old female with a past medical history significant for Parkinson's; multiple falls; CVA; chronic atrial fibrillation, on chronic anticoagulation with Pradaxa; nonsustained ventricular tachycardia; history of diastolic congestive heart failure, status post pacemaker placement, who presented to the emergency room after a fall. The patient does have some residual left-sided weakness from her stroke. She reports that she fell down approximately 8 steps at home hitting the back of her head. The patient was seen in the emergency room and had multiple x-rays done and found to have a fractured ulna, but no other fractures. Due to the patient's falls and weakness, Hospital Medicine was asked to see and evaluate her for admission. While in the hospital, the patient was monitored throughout her hospitalization. She does have atrial fibrillation with a heart rate in the 70s to one teens. She is asymptomatic and not short of breath. She has no complaints. She did have a cast placed on her right arm by Orthopedics, Dr. Wilson, for her right ulnar fracture. She was seen and evaluated by Physical Therapy. Physical Therapy recommended continued skilled PT to increase functional independence, activity tolerance and safety and recommended short- term rehab at discharge. On the day of discharge, the patient is feeling well. She has no complaints. She denies any shortness of breath or chest pain. She is sitting in the chair. She is stable for discharge home. REVIEW OF SYSTEMS: The patient denies any fever, chills, chest pain, or shortness of breath. Denies any nausea, vomiting, or diarrhea. Denies any abdominal pain. Denies any urinary frequency, urgency, or pain with urination. PHYSICAL EXAMINATION: General: At this time, Ms. Phelan is an 79-year-old female. She is alert and oriented, sitting in a chair in her room. She is in no acute distress. Vital Signs: Blood pressure 152/87, heart rate 91, respirations are 18, O2 saturation is 100% on room air. HEENT: Head is normocephalic. She does have ecchymosis noted to her left posterior head and left face. Eyes: EOMs are intact. Sclerae anicteric and not pale. Oral mucosa appeared to be moist. Neck is supple. No C-spine tenderness. Lungs are clear to auscultation bilaterally. No wheezes, rales, or rhonchi. Cardiac: S1 , S2. Irregular rate and rhythm. No rubs or gallops. Abdomen is soft and nontender. Bowel sounds are present x4. Extremities: She is able to move all 4 extremities. She does have a fiberglass cast to her right arm. CMSTs are intact to her right hand. She is able to move them. Capillary refill is less than 2 seconds. They are warm to touch. Skin: She does have ecchymosis noted to her left lower back and left shoulder. Her skin is intact. There are no open lesions or ulcers. DISCHARGE PLAN: The patient will be discharged to [facility]. 1. Falls. The patient will go to [facility] for short-term rehab. She should continue with skilled physical therapy to build strength and gait training for better stability. 2. Right ulnar fracture. The patient does have a cast to her right arm. She is partial weightbearing to her right upper extremity. She should follow up with Dr. Wilson in 1 to 2 weeks. She should keep her arm elevated at night. 3. Hypokalemia, hypomagnesemia. The patient should have a repeat BMP in 3 days. 4. History of atrial fibrillation. The patient should continue her metoprolol 50 mg p.o. b.i.d. She should continue Pradaxa 75 mg b.i.d. 5. History of CVA. The patient should continue on her statin, metoprolol, and Pradaxa as previously prescribed. 6. Orthostatic hypotension. The patient should continue on Florinef 0.1 mg p.o. daily. CONDITION ON DISCHARGE: Stable. DISPOSITION ON DISCHARGE: [facility]. TIME SPENT: Time spent on this discharge was 45 minutes, greater than half that time was spent going over discharge instructions and reviewing her discharge plan of care. I have discussed this with my attending, Dr. Jayme Guzman; he is in agreement with my plan. RADHA RIVER, MATTHIEU [id number]/CPS #: [id number] MTDD
[2019-07-05] MEDS: Acetaminophen TAB* 325 MG PO PRN (20:13)
[2019-07-05] MEDS: Melatonin 3 MG TAB PO PRN (20:13)
[2019-07-06] MEDS: Carbidopa/Levodop 25/100 MG TAB(*) PO SCH (08:29)
[2019-07-06] MEDS: Sucralfate TAB* 1 GM PO SCH (08:30)
[2019-07-06] MEDS: CMC:Dabigatran CAP(NF) 75 MG CAP PO SCH (08:30)
[2019-07-06] MEDS: Cyanocobalamin TAB* 500 MCG PO SCH (08:30)
[2019-07-06] MEDS: Metoprolol Tartrate TAB* 50 mg PO SCH (08:30)
[2019-07-06] MEDS: Escitalopram * 5 MG TAB PO SCH (08:30)
[2019-07-06] MEDS: Fludrocortisone Acetate TAB* 0.1 MG PO SCH (08:30)
[2019-07-06] MEDS: Pantoprazole TAB * 40 MG TAB PO SCH (08:30)
[2019-07-06] MEDS: amLODIPine TAB* 5 MG PO SCH (08:30)
[2019-07-06 08:36] VITALS: BP 152/87
== END 2019-07-06 11:30 | DRG 563 ==
LOC: ED 10:40 → MED 15:14
PROVIDERS: ADMIT Internal Medicine; ATTEND Internal Medicine
PROC: 2W3CX2Z Immobilization of Right Lower Arm using Cast (ICD-10-PCS; principal; 2019-06-30)
DX: S52.201A Unspecified fracture of shaft of right ulna, initial encounter for closed fracture (principal); I69.354 Hemiplegia and hemiparesis following cerebral infarction affecting left non-dominant side; I50.32 Chronic diastolic (congestive) heart failure; R44.3 Hallucinations, unspecified; I47.2 Ventricular tachycardia; I48.20 Chronic atrial fibrillation, unspecified; I49.5 Sick sinus syndrome; G20 Parkinson's disease; I11.0 Hypertensive heart disease with heart failure; E83.42 Hypomagnesemia; E87.6 Hypokalemia; E78.5 Hyperlipidemia, unspecified; E86.0 Dehydration; R19.7 Diarrhea, unspecified; I95.1 Orthostatic hypotension; K27.9 Peptic ulcer, site unspecified, unspecified as acute or chronic, without hemorrhage or perforation; M85.88 Other specified disorders of bone density and structure, other site; M41.9 Scoliosis, unspecified; M50.30 Other cervical disc degeneration, unspecified cervical region; M47.9 Spondylosis, unspecified; M51.36 Other intervertebral disc degeneration, lumbar region; W10.8XXA Fall (on) (from) other stairs and steps, initial encounter; Y92.009 Unspecified place in unspecified non-institutional (private) residence as the place of occurrence of the external cause; Z95.0 Presence of cardiac pacemaker; Z91.81 History of falling; Z79.01 Long term (current) use of anticoagulants; Z79.1 Long term (current) use of non-steroidal anti-inflammatories (NSAID); Z79.899 Other long term (current) drug therapy; Z88.0 Allergy status to penicillin; Z88.8 Allergy status to other drugs, medicaments and biological substances; Z82.49 Family history of ischemic heart disease and other diseases of the circulatory system; Z80.3 Family history of malignant neoplasm of breast; Z80.1 Family history of malignant neoplasm of trachea, bronchus and lung
CPT/HCPCS: 36415; 70450; 71260; 72125; 72131; 74177; 80048; 80053; 81003; 81015; 82607; 82746; 83630; 83690; 83735; 85025; 87086; 87177; 87209; 87328; 87329; 90715; 96361; 96365; 96375; 96376; 97530; 99284; A9270-GY; G8978-GP-CJ; G8978-GP-CK; G8978-GP-CL; G8979-GP-CI; G8979-GP-CJ; J1630; J2270; J3475; J3480; Q9967

== ENCOUNTER 2019-12-13 12:10 | Inpatient (IN) | payer MEDICARE, OTHER ==
[2019-12-13 14:23] LABS: ABS Lymphocytes 0.8 10^3/ul (1.0-4.8); ABS Monocytes 0.6 10^3/ul (0-0.8); Eosinophil % 0.3 %; Hematocrit 33 % (35-47); Hemoglobin 10.6 g/dL (12.0-16.0); Lymphocyte % 10.4 %; Mean Corpuscular HGB Conc 33 g/dL (31-36); Mean Corpuscular Hemoglobin 29 pg (27-31); Mean Corpuscular Volume 87 fL (80-97); Mean Platelet Volume 7.6 fL (7.4-10.4); Nucleated Red Blood Cells % 0.1; Platelet Count 388 10^3/uL (150-450); Red Blood Count 3.73 10^6 /uL (3.70-4.87); Red Cell Distribution Width 17 % (10-15); White Blood Count 7.3 10^3/uL (3.5-10.8)
[2019-12-13 14:39] LABS: Activated Partial Thrombo Time 44.3 seconds (26.0-38.0); INR 1.18 (0.82-1.09)
[2019-12-13 14:40] LABS: Urine Appearance Clear; Urine Bilirubin Negative (Negative); Urine Blood 2+ (Negative); Urine Color Yellow; Urine Glucose Negative (Negative); Urine Ketones Trace (Negative); Urine Nitrite Negative (Negative); Urine Protein Negative (Negative); Urine Specific Gravity 1.017 (1.010-1.030); Urine Urobilinogen Negative (Negative)
[2019-12-13 14:41] LABS: Albumin/Globulin Ratio 1.4 (1-3); BUN/Creatinine Ratio 23.1 (8-20); Calcium 9.1 mg/dL (8.6-10.3); EGFR African American 61.5 (>60); EGFR Non-African American 50.9 (>60); Globulin 2.9 g/dL (2-4); Potassium 2.8 mmol/L (3.5-5.0); Total Bilirubin 0.6 mg/dL (0.2-1.0); Total Protein 6.9 g/dL (6.4-8.9)
[2019-12-13 14:43] LABS: Troponin I 0.01 ng/mL (<0.03)
[2019-12-13 14:50] LABS: Urine Bacteria Absent (Absent); Urine Red Blood Cell 3+(>10/hpf) (Absent); Urine Squamous Epithelial Cell Present (Absent); Urine White Blood Cell Absent (Absent)
[2019-12-13] MEDS ORDERED: Potassium Chlor 20 meq TAB.ER PO ONE ×2 (14:59→17:29)
[2019-12-13] MEDS ORDERED: Melatonin (NF) ** ENTER STRENGTH IN LABEL DIRECTIONS PO PRN (17:28)
[2019-12-13 17:59] LABS: Magnesium 1.8 mg/dL (1.9-2.7)
[2019-12-13] MEDS: Carbidopa/Levodop 25/100 MG TAB(*) PO SCH (21:24)
[2019-12-13] MEDS: CMC:Dabigatran CAP(NF) 75 MG CAP PO SCH (21:26)
[2019-12-14 08:15] LABS: Calcium 8.8 mg/dL (8.6-10.3); Magnesium 1.8 mg/dL (1.9-2.7); Potassium 3.5 mmol/L (3.5-5.0)
[2019-12-14] MEDS: FLUDROCORTISONE 0.1 MG PO SCH (08:18)
[2019-12-14 08:21] LABS: BUN/Creatinine Ratio 28.2 (8-20); EGFR African American 77.7 (>60); EGFR Non-African American 64.2 (>60)
[2019-12-14] MEDS ORDERED: Magnesium Sulfate 2 gm BAG 2 GM/50 ML BAG IVPB ONE (08:23)
[2019-12-14 09:39] LABS: TSH (Thyroid Stimulating Horm) 0.66 mcIU/mL (0.34-5.60)
[2019-12-14] MEDS: Fluticasone NASAL SPRAY 50MCG 16 gm SPRAY BTL BOTH NARES SCH (09:41)
[2019-12-14] MEDS: Carbidopa/Levodop 25/100 MG TAB(*) PO SCH ×4 (10:41→22:01)
[2019-12-14] MEDS: CMC:Dabigatran CAP(NF) 75 MG CAP PO SCH ×2 (10:44→21:57)
[2019-12-14] MEDS: Colestipol 1 gm TAB (NF) PO SCH (10:44)
[2019-12-15] MEDS: FLUDROCORTISONE 0.1 MG PO SCH (08:03)
[2019-12-15] MEDS: CMC:Dabigatran CAP(NF) 75 MG CAP PO SCH ×2 (08:05→21:21)
[2019-12-15] MEDS: Fluticasone NASAL SPRAY 50MCG 16 gm SPRAY BTL BOTH NARES SCH (08:07)
[2019-12-15] MEDS: Carbidopa/Levodop 25/100 MG TAB(*) PO SCH ×4 (08:19→21:23)
[2019-12-15] MEDS: Colestipol 1 gm TAB (NF) PO SCH (08:21)
[2019-12-16 07:33] LABS: Calcium 8.7 mg/dL (8.6-10.3); Potassium 3.7 mmol/L (3.5-5.0)
[2019-12-16 07:39] LABS: BUN/Creatinine Ratio 35.6 (8-20); EGFR African American 75.6 (>60); EGFR Non-African American 62.5 (>60)
[2019-12-16] MEDS: CMC:Dabigatran CAP(NF) 75 MG CAP PO SCH ×2 (09:43→19:27)
[2019-12-16] MEDS: Fluticasone NASAL SPRAY 50MCG 16 gm SPRAY BTL BOTH NARES SCH (09:43)
[2019-12-16] MEDS: FLUDROCORTISONE 0.1 MG PO SCH (09:43)
[2019-12-16] MEDS: Carbidopa/Levodop 25/100 MG TAB(*) PO SCH ×4 (09:43→19:27)
[2019-12-16] MEDS: Colestipol 1 gm TAB (NF) PO SCH (09:44)
[2019-12-17] MEDS: Carbidopa/Levodop 25/100 MG TAB(*) PO SCH ×4 (09:55→23:25)
[2019-12-17] MEDS: CMC:Dabigatran CAP(NF) 75 MG CAP PO SCH ×2 (09:55→22:46)
[2019-12-17] MEDS: Fluticasone NASAL SPRAY 50MCG 16 gm SPRAY BTL BOTH NARES SCH (09:55)
[2019-12-17] MEDS: FLUDROCORTISONE 0.1 MG PO SCH (09:55)
[2019-12-17] MEDS: Colestipol 1 gm TAB (NF) PO SCH (23:20)
[2019-12-18 08:01] VITALS: BP 150/92
[2019-12-18] MEDS: FLUDROCORTISONE 0.1 MG PO SCH (09:09)
[2019-12-18] MEDS: Carbidopa/Levodop 25/100 MG TAB(*) PO SCH ×2 (09:09→12:42)
[2019-12-18] MEDS: Colestipol 1 gm TAB (NF) PO SCH (09:10)
[2019-12-18] MEDS: Fluticasone NASAL SPRAY 50MCG 16 gm SPRAY BTL BOTH NARES SCH (12:38)
[2019-12-18] MEDS: CMC:Dabigatran CAP(NF) 75 MG CAP PO SCH (13:40)
== END 2019-12-18 14:08 | DRG 57 ==
LOC: ED 12:10 → MEDTELE 16:12 → OBSVTOIN 12-14 16:00 → MEDTELE 12-17 19:25
PROVIDERS: ADMIT Internal Medicine; ATTEND Hospitalist

== ENCOUNTER 2021-05-30 12:40 | Inpatient (IN) ==
[2021-05-30 13:29] LABS: ABS Basophils 0.1 10^3/ul (0-0.2); ABS Lymphocytes 0.8 10^3/ul (1.0-4.8); ABS Monocytes 0.5 10^3/ul (0-0.8); ABS Neutrophils 5.8 10^3/ul (1.5-7.7); Eosinophil % 0.4 %; Hematocrit 41 % (35-47); Hemoglobin 13.4 g/dL (12.0-16.0); Lymphocyte % 11.7 %; Mean Corpuscular HGB Conc 33 g/dL (31-36); Mean Corpuscular Hemoglobin 29 pg (27-31); Mean Corpuscular Volume 88 fL (80-97); Mean Platelet Volume 8.5 fL (7.4-10.4); Nucleated Red Blood Cells % 0.1; Platelet Count 315 10^3/uL (150-450); Red Blood Count 4.67 10^6 /uL (3.70-4.87); Red Cell Distribution Width 21 % (10-15); White Blood Count 7.2 10^3/uL (3.5-10.8)
[2021-05-30 13:45] LABS: ALT 3 U/L (7-52); AST 21 U/L (13-39); Albumin 3.9 g/dL (3.2-5.2); Albumin/Globulin Ratio 1.1 (1-3); Alkaline Phosphatase 108 U/L (35-149); Anion Gap 9 mmol/L (2-11); Blood Urea Nitrogen 32 mg/dL (6-24); CO2 Carbon Dioxide 26 mmol/L (22-32); Calcium 9.7 mg/dL (8.6-10.3); Chloride 103 mmol/L (101-111); Globulin 3.5 g/dL (2-4); Glucose 109 mg/dL (70-100); Potassium 4.3 mmol/L (3.5-5.0); Sodium 138 mmol/L (135-145); Total Protein 7.4 g/dL (6.4-8.9)
[2021-05-30 13:51] LABS: Troponin I 0.03 ng/mL (<0.03)
[2021-05-30] MEDS ORDERED: Ondansetron 4 mg VIAL 2 MG/ML 2 ml VIAL IV PRN (16:11)
[2021-05-30] MEDS ORDERED: NS 0.9% 1000 ml BAG 1,000 ML IV SCH (16:15)
[2021-05-30 18:19] LABS: Rapid COVID-19 Molecular Undetected (Undetected)
[2021-05-30 19:27] LABS: Troponin I 0.03 ng/mL (<0.03)
[2021-05-30] MEDS: Carbidopa/Levodop 25/100 MG TAB PO SCH ×2 (19:52→21:23)
[2021-05-30] MEDS: Senna TAB 8.6 mg TAB PO SCH (21:00)
[2021-05-30] MEDS: CMCS: Dabigatran 75 mg CAP (NF) PO SCH (21:01)
[2021-05-30 22:32] LABS: Troponin I 0.03 ng/mL (<0.03)
[2021-05-31 09:57] LABS: ABS Eosinophils 0.1 10^3/ul (0-0.6); ABS Monocytes 0.5 10^3/ul (0-0.8); ABS Neutrophils 5.1 10^3/ul (1.5-7.7); Eosinophil % 1.9 %; Hematocrit 37 % (35-47); Hemoglobin 12.1 g/dL (12.0-16.0); Mean Corpuscular HGB Conc 33 g/dL (31-36); Mean Corpuscular Hemoglobin 29 pg (27-31); Mean Corpuscular Volume 88 fL (80-97); Mean Platelet Volume 8.4 fL (7.4-10.4); Platelet Count 268 10^3/uL (150-450); Red Cell Distribution Width 21 % (10-15); White Blood Count 6.8 10^3/uL (3.5-10.8)
[2021-05-31 10:13] LABS: Calcium 9.2 mg/dL (8.6-10.3)
[2021-05-31] MEDS: CMCS: Dabigatran 75 mg CAP (NF) PO SCH ×3 (10:53→20:31)
[2021-05-31] MEDS: Carbidopa/Levodop 25/100 MG TAB PO SCH ×5 (10:53→19:33)
[2021-05-31 13:29] LABS: Urine Appearance Cloudy; Urine Bilirubin Negative (Negative); Urine Blood Negative (Negative); Urine Color Yellow; Urine Glucose Negative (Negative); Urine Ketones Negative (Negative); Urine Nitrite Positive (Negative); Urine Protein Negative (Negative); Urine Specific Gravity 1.013 (1.002-1.030); Urine Urobilinogen Negative (Negative)
[2021-05-31 13:35] LABS: Urine Bacteria Absent (Absent); Urine Red Blood Cell Trace(0-2/hpf) (Absent); Urine Squamous Epithelial Cell Present (Absent); Urine White Blood Cell 1+(6-10/hpf) (Absent)
[2021-05-31] MEDS: Senna TAB 8.6 mg TAB PO SCH (20:32)
[2021-06-01 09:08] LABS: ABS Basophils 0.1 10^3/ul (0-0.2); ABS Eosinophils 0.1 10^3/ul (0-0.6); ABS Lymphocytes 0.9 10^3/ul (1.0-4.8); ABS Monocytes 0.5 10^3/ul (0-0.8); ABS Neutrophils 4.6 10^3/ul (1.5-7.7); Eosinophil % 1.8 %; Hematocrit 41 % (35-47); Hemoglobin 13.2 g/dL (12.0-16.0); Lymphocyte % 14.9 %; Mean Corpuscular HGB Conc 32 g/dL (31-36); Mean Corpuscular Hemoglobin 29 pg (27-31); Mean Corpuscular Volume 88 fL (80-97); Mean Platelet Volume 8.4 fL (7.4-10.4); Nucleated Red Blood Cells % 0.1; Platelet Count 259 10^3/uL (150-450); Red Blood Count 4.62 10^6 /uL (3.70-4.87); Red Cell Distribution Width 21 % (10-15); White Blood Count 6.2 10^3/uL (3.5-10.8)
[2021-06-01 09:25] LABS: Calcium 9.4 mg/dL (8.6-10.3); Potassium 3.8 mmol/L (3.5-5.0)
[2021-06-01] MEDS: CMCS: Dabigatran 75 mg CAP (NF) PO SCH ×2 (11:28→20:53)
[2021-06-01] MEDS: Carbidopa/Levodop 25/100 MG TAB PO SCH ×4 (11:28→20:58)
[2021-06-01] MEDS: Senna TAB 8.6 mg TAB PO SCH (20:53)
[2021-06-02] MEDS: CMCS: Dabigatran 75 mg CAP (NF) PO SCH ×2 (11:55→19:46)
[2021-06-02] MEDS: Carbidopa/Levodop 25/100 MG TAB PO SCH ×4 (11:56→19:53)
[2021-06-02] MEDS: Senna TAB 8.6 mg TAB PO SCH (19:47)
[2021-06-03 07:02] LABS: ABS Basophils 0.1 10^3/ul (0-0.2); ABS Eosinophils 0.1 10^3/ul (0-0.6); ABS Lymphocytes 1.2 10^3/ul (1.0-4.8); ABS Monocytes 0.6 10^3/ul (0-0.8); ABS Neutrophils 4.5 10^3/ul (1.5-7.7); Eosinophil % 1.3 %; Hematocrit 38 % (35-47); Hemoglobin 12.4 g/dL (12.0-16.0); Lymphocyte % 18.2 %; Mean Corpuscular HGB Conc 33 g/dL (31-36); Mean Corpuscular Hemoglobin 29 pg (27-31); Mean Corpuscular Volume 89 fL (80-97); Mean Platelet Volume 8.6 fL (7.4-10.4); Nucleated Red Blood Cells % 0.1; Platelet Count 264 10^3/uL (150-450); Red Blood Count 4.21 10^6 /uL (3.70-4.87); Red Cell Distribution Width 21 % (10-15); White Blood Count 6.4 10^3/uL (3.5-10.8)
[2021-06-03 07:18] LABS: Calcium 9.4 mg/dL (8.6-10.3); Magnesium 1.9 mg/dL (1.9-2.7); Potassium 3.9 mmol/L (3.5-5.0)
[2021-06-03] MEDS: Carbidopa/Levodop 25/100 MG TAB PO SCH ×4 (10:57→23:24)
[2021-06-03] MEDS: CMCS: Dabigatran 75 mg CAP (NF) PO SCH ×2 (11:04→23:32)
[2021-06-03] MEDS: Senna TAB 8.6 mg TAB PO SCH (23:22)
[2021-06-04 06:41] LABS: ABS Basophils 0.1 10^3/ul (0-0.2); ABS Eosinophils 0.1 10^3/ul (0-0.6); ABS Lymphocytes 1.5 10^3/ul (1.0-4.8); ABS Monocytes 0.5 10^3/ul (0-0.8); ABS Neutrophils 3.6 10^3/ul (1.5-7.7); Eosinophil % 1.9 %; Hematocrit 38 % (35-47); Hemoglobin 12.6 g/dL (12.0-16.0); Mean Corpuscular HGB Conc 33 g/dL (31-36); Mean Corpuscular Hemoglobin 29 pg (27-31); Mean Corpuscular Volume 89 fL (80-97); Mean Platelet Volume 8.6 fL (7.4-10.4); Nucleated Red Blood Cells % 0.1; Platelet Count 264 10^3/uL (150-450); Red Blood Count 4.33 10^6 /uL (3.70-4.87); Red Cell Distribution Width 21 % (10-15); White Blood Count 5.8 10^3/uL (3.5-10.8)
[2021-06-04 06:53] LABS: Calcium 9.5 mg/dL (8.6-10.3); Magnesium 1.9 mg/dL (1.9-2.7); Potassium 3.9 mmol/L (3.5-5.0)
[2021-06-04] MEDS: Carbidopa/Levodop 25/100 MG TAB PO SCH ×2 (08:27→12:49)
[2021-06-04] MEDS: CMCS: Dabigatran 75 mg CAP (NF) PO SCH (08:27)
[2021-06-04 10:52] LABS: Rapid COVID-19 Molecular Undetected (Undetected)
[2021-06-04 14:25] VITALS: BP 128/95
== END 2021-06-04 14:50 | DRG 988 ==
LOC: MED 12:40 → ED 12:40 → SUATTDRO 16:11 → MED 19:09 → SUATTDRO 06-01 11:00
PROVIDERS: ADMIT Internal Medicine; ATTEND Hospitalist